=== PATIENT | female | born 1940 | race Caucasian/White ===

== ENCOUNTER 2019-09-07 12:29 | Emergency (ER) | payer MEDICARE, OTHER ==
[2019-09-07] MEDS ORDERED: METF500T13 PO ×2 (13:00)
[2019-09-07] MEDS ORDERED: NOVOINJ3 SQ (13:00)
[2019-09-07] MEDS ORDERED: ADV250INH INH (13:00)
[2019-09-07] MEDS ORDERED: GABA-843 PO (13:00)
[2019-09-07] MEDS ORDERED: HYDR-3713 PO (13:00)
[2019-09-07] MEDS ORDERED: SIMV20TA22 PO (13:00)
[2019-09-07] MEDS ORDERED: TRES1INJ SQ (13:00)
[2019-09-07] MEDS ORDERED: RAMI1CAP26 PO (13:00)
[2019-09-07] MEDS ORDERED: SERT50TA29 PO (13:00)
[2019-09-07] MEDS ORDERED: BISO10TA4 PO (13:00)
[2019-09-07] MEDS ORDERED: LEVA45AE INH (13:00)
--- NOTE | 2019-09-07 13:07 | REP ---
INDICATION: Trauma PROCEDURE: CT head without contrast COMPARISON STUDIES: No prior similar studies FINDINGS: No acute bleed or fracture. Ventricles, cisterns and sulci within normal limits. No mass effect or midline shift. No abnormal fluid collections. No fracture. Paranasal sinuses and mastoid air cells are clear. Small osteoma perhaps 3- 4 mm seen off of the outer table of the skull on the left forehead as an incidental finding. CONCLUSION: No acute or post-traumatic findings. Electronically Signed by Haris Leonard MD 09/07/2019 12:59 P
--- NOTE | 2019-09-07 13:09 | REP ---
INDICATION: Trauma. PROCEDURE: CT maxillofacial COMPARISON STUDIES: No prior similar studies FINDINGS: No fracture seen. Nasal bones are intact. There is a small amount of mucosal thickening of right ethmoid sinuses. The remainder of the paranasal sinuses and mastoid air cells are clear. CONCLUSION: No acute findings. Electronically Signed by Haris Leonard MD 09/07/2019 01:01 P
--- NOTE | 2019-09-07 13:12 | REP ---
INDICATION: Trauma PROCEDURE: CT cervical spine with multiplanar re-formations COMPARISON STUDIES: No prior similar studies FINDINGS: No acute fracture or malalignment. There is degenerative thickening behind the odontoid at the craniovertebral junction however does not appear to impinge the cervical cord. There is minor anterolisthesis of C3 over C4 and C4 over C5 appears degenerative. No definite limiting canal or foraminal stenosis. Prevertebral soft tissues appear within normal limits. CONCLUSION: No acute findings. Electronically Signed by Harsi Leonard MD 09/07/2019 01:03 P
--- NOTE | 2019-09-07 14:13 | REP ---
Right shoulder: Three views. History: Pain after a fall. Findings: Three views of the right shoulder demonstrate a slightly impacted nondisplaced fracture of the surgical neck of the right proximal humerus. There is diffuse osteoporosis. Periarticular soft tissue calcification is seen consistent with chronic calcific tendinobursitis. 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 No other fracture is seen. Impression: Slightly impacted nondisplaced fracture surgical neck right proximal humerus. Osteoporosis. Periarticular soft tissue calcification consistent with tendonitis/bursitis. Electronically Signed by Truman Charles MD 09/07/2019 06:17 P
[2019-09-07] MEDS ORDERED: FLUORESCEIN OPHTH 1 MG STRIP As Ordered ONE (14:39)
[2019-09-07] MEDS ORDERED: TETRACAINE 0.5% OPHTH SOLN 4ML OU ONE (14:45)
[2019-09-07] MEDS ORDERED: FLUORESCEIN OPHTH 1 MG STRIP OD ONE (14:45)
[2019-09-07] MEDS ORDERED: ERYT1OIN26 OD (15:02)
[2019-09-07 15:26] VITALS: BP 172/80
== END 2019-09-07 15:50 | disposition home or self-care (01) ==
LOC: EDBD 12:29 → EDSEX 12:29 → M ED 12:29
DX: S42.214A Unspecified nondisplaced fracture of surgical neck of right humerus, initial encounter for closed fracture (principal); H11.31 Conjunctival hemorrhage, right eye; S05.01XA Injury of conjunctiva and corneal abrasion without foreign body, right eye, initial encounter; W01.10XA Fall on same level from slipping, tripping and stumbling with subsequent striking against unspecified object, initial encounter; Y92.099 Unspecified place in other non-institutional residence as the place of occurrence of the external cause; Y93.9 Activity, unspecified; Y99.9 Unspecified external cause status; E11.9 Type 2 diabetes mellitus without complications; J44.9 Chronic obstructive pulmonary disease, unspecified; E78.5 Hyperlipidemia, unspecified; Z79.4 Long term (current) use of insulin; Z79.899 Other long term (current) drug therapy; Z88.5 Allergy status to narcotic agent; Z88.8 Allergy status to other drugs, medicaments and biological substances

== ENCOUNTER 2020-08-06 17:01 | Inpatient (IN) | payer MEDICARE ==
[~2020-08-06 17:01] MED LIST: ADV250INH INH; BISO10TA4 PO; ERYT5OIN25 OD; GABA-843 PO; HYDR-3713 PO; LEVA45AE INH; METF500T13 PO; NOVOINJ3 SQ; RAMI1CAP26 PO; SERT50TA29 PO; SIMV20TA22 PO; TRES1INJ SQ
--- NOTE | 2020-08-06 18:15 | REP ---
INDICATION: DKA. COMPARISON: Comparison chest x-ray February 02, 2013. TECHNIQUE: Portable upright AP chest radiograph. FINDINGS: The lungs are well inflated and free of infiltrate. Pleural angles are sharp. Heart size is normal. Pulmonary vasculature is not increased. No significant bony abnormality is seen. IMPRESSION: No active disease. <Electronically signed by Gama Charles > 08/06/20 [id number]
[2020-08-06 18:42] LABS: ABG BASE EXCESS -3.9 (-2.0-2.0); ABG HCO3 21.1 MEQ/L (22.0-26.0); ABG O2 SATURATION 96.2 % (95.0-99.0); ABG PARTIAL PRESSURE CO2 38.2 mmHg (35.0-45.0); ABG STANDARD HCO3 21.2 MEQ/L (22.0-26.0); ABG TOTAL CO2 22.3 MEQ/L (23.0-31.0); ABG pH (ARTERIAL) 7.361 UNITS (7.350-7.450)
[2020-08-06 18:45] LABS: BASO # 0.1 10^3/uL (0.0-0.2); BASO % 0.5 % (0.0-1.0); EOS % 0.3 % (0.0-3.0); HEMATOCRIT 36.1 % (36.0-47.0); HEMOGLOBIN 11.1 g/dl (12.0-15.5); LYMPH # 2.3 10^3/uL (1.5-5.0); LYMPH % 20.7 % (24.0-44.0); MEAN CORPUSCULAR HGB CONC 30.7 g/dl (32.0-36.5); MEAN CORPUSCULAR VOLUME 90.9 fl (80.0-96.0); MONO # 1.1 10^3/uL (0.0-0.8); MONO % 9.5 % (0.0-5.0); NEUTROPHILS # 7.7 10^3/uL (1.5-8.5); NEUTROPHILS % 68.6 % (36.0-66.0); PLATELET COUNT, AUTOMATED 234 10^3/uL (150-450); RED BLOOD COUNT 3.97 10^6/uL (4.00-5.40); WHITE BLOOD COUNT 11.2 10^3/uL (4.0-10.0)
[2020-08-06 19:21] LABS: ACETONE/KETONE 33.08 MG/DL (<2.81); ALBUMIN 3.4 GM/DL (3.2-5.2); BILIRUBIN,DIRECT 0.1 MG/DL (0.0-0.2); BILIRUBIN,TOTAL 0.5 MG/DL (0.2-1.0); CK-MB VALUE MASS 5.3 NG/ML (<3.6); CREATININE FOR GFR 1.34 MG/DL (0.55-1.30); GLOMERULAR FILTRATION RATE 40.3 (>32); MB/CK RELATIVE INDEX 5.15 (< OR =4); PHOSPHORUS LEVEL 3.2 MG/DL (2.5-4.9); TOTAL PROTEIN 8.5 GM/DL (6.4-8.2); TROPONIN I 0.07 NG/ML (< 0.10)
[2020-08-06] MEDS ORDERED: LIDOCAINE 2% 5ML JELLY UROJET TOP ONE (19:45)
[2020-08-06] MEDS ORDERED: NS 1,000 ML IV ONE (19:45)
[2020-08-06 19:58] LABS: HEMOGLOBIN A1c 11.2 %
--- NOTE | 2020-08-06 20:08 | REPVR ---
PROCEDURE INFORMATION: Exam: CT Head Without Contrast Exam date and time: 08/06/2020 7:24 PM Age: 80 years old Clinical indication: Altered mental status/memory loss; Additional info: Altered ms TECHNIQUE: Imaging protocol: Computed tomography of the head without contrast. Radiation optimization: All CT scans at this facility use at least one of these dose optimization techniques: automated exposure control; mA and/or kV adjustment per patient size (includes targeted exams where dose is matched to clinical indication); or iterative reconstruction. COMPARISON: CT Head without contrast 09/07/2019 12:43 PM FINDINGS: Brain: No acute intracranial hemorrhage is visualized. The white-gleason differentiation is preserved demonstrating no acute territorial type infarct. There are periventricular foci of white matter hypodensity, likely representing small vessel ischemic disease in a patient this age. The acuity of the white matter disease is indeterminate. There is no midline shift. Artifact limits evaluation of the roselyn. Cerebral ventricles: There is stable prominence of the ventricles and sulci, compatible with atrophy. Bones/joints: The calvarium demonstrates no evidence for a depressed fracture. A nonspecific subcentimeter hypodense lesion is seen within the superior right parietal skull. There is a small hyperdense osteoma again visualized of the left frontal skull at the outer table measuring 7 mm in diameter. Paranasal sinuses: There is opacification of a left posterior ethmoid air cell. Mastoid air cells: Minimal effusions within right mastoid air cells. Orbital cavity: Bilateral orbital lens implants. Vasculature: Intracranial atherosclerosis visualized. Soft tissues: Unremarkable. IMPRESSION: 1. No acute intracranial hemorrhage or acute territorial type infarct. 2. There are periventricular foci of white matter hypodensity, likely representing small vessel ischemic disease in a patient this age. 3. Stable atrophy. 4. Additional findings described above. 5. If further evaluation is clinically indicated, an MRI of the brain is recommended. Electronically signed by: Martin Low On 08/06/2020 20:08:28 PM
[2020-08-06] MEDS ORDERED: HumuLIN R (REGULAR) INSULIN (NovoLIN R) **100U/ML** PER UNIT IV ONE (20:15)
[2020-08-06] MEDS ORDERED: INSUH10VL SC (20:40)
[2020-08-06] MEDS ORDERED: LEVA45AE INH (21:40)
[2020-08-06] MEDS ORDERED: [UNRECOGNIZED DRUG - REMARK] (21:51)
[2020-08-06] MEDS ORDERED: PATIENT COMMENT (21:52)
[2020-08-07] MEDS ORDERED: LEVALBUTEROL HFA 45MCG/ACT 15 GM INHALER INH PRN (00:30)
[2020-08-07] MEDS ORDERED: MAALOX 30 ML SUSP *UDC PO PRN (00:30)
[2020-08-07] MEDS ORDERED: DEXTROSE 50% 50 ML SYRINGE IV PRN (00:30)
[2020-08-07] MEDS ORDERED: GLUCAGON INJ 1MG VIAL SC PRN (00:30)
[2020-08-07] MEDS ORDERED: GLUCOSE 4GM CHEW TABLET PO PRN (00:30)
[2020-08-07] MEDS ORDERED: MOM 30ML SUSPENSION UDC PO PRN (00:30)
[2020-08-07] MEDS ORDERED: ACETAMINOPHEN TAB 650MG DOSE (2X325MG) PO PRN (00:30)
[2020-08-07] MEDS: NS 1,000 ML IV SCH ×2 (03:15→13:30)
--- NOTE | 2020-08-07 05:55 | ECGEPIP ---
[facility] - ED Test Date: 2020-08-06 Pat Name: JAJA WEBB Department: Room: - Gender: Female Trouble Dispatcher: : [id number] Requested By: Greg Guerra Order Number: [id number] Reading MD: Greg Mcpherson Measurements Intervals [place] Rate: 96 P: 66 CT: 191 QRS: -3 QRSD: 90 T: 22 QT: 350 QTc: 443 Interpretive Statements SINUS RHYTHM LOW QRS VOLTAGE IN PRECORDIAL LEADS POOR R WAVE PROGRESSION POSSIBLE INCOMPLETE RIGHT BUNDLE BRANCH BLOCK MINIMAL ST DEPRESSION NO PRIORS FOR COMPARISON Electronically Signed on 08-07-2020 5:55:05 EST by Greg Mcpherson
--- NOTE | 2020-08-07 06:07 | HPEPDOC ---
[facility] Medical History & Physical Date of Admission Aug 06, 2020 Date of Service: Aug 06, 2020 Primary Care Physician: Jr Bills Collins Attending Physician: Blaine Calix MD History and Physical CHIEF COMPLAINT: Altered mental status HISTORY OF PRESENT ILLNESS: Meka is an 80yo female w/ PMHx of poorly controlled IDDM 2, hypertension, and hld, who presented to the [facility] ED on 08/06/2020 via EMS with the chief complaint of altered mental status. Patient has a frame sample and pattern supervisor and caregiver named Layne who visited her earlier in the day and 08/06 and reportedly found. Patient confused and disoriented with her home disheveled. Patient's caregiver was concerned and subsequently called EMS. Upon speaking with the patient and the ED, she also reports feeling as though something was "off". Today when being visited by the skin diving teacher, but she is unable to articulate specifically what was "off." In the ED, patient was found to have significant hyperglycemia (serum glucose 465) with elevated beta hydroxybutyrate but no metabolic pathology nor abnormal anion gap. She is also found to have acute kidney injury in the setting of chronic kidney disease, and likely UTI on UA in the form of 1+ leuk esterase and 1+ urine bacteria. ABG a pH of 7.36 with PCO2 of 30.2, and bicarbonate of 22. A head CT showed no active pathology with some chronic atrophy and small vessel changes and chest x-ray was unremarkable for any active pathology as well. She had a mild leukocytosis (WBC 11.2), and normocytic normochromic mild anemia (Hgb 11.1). ED service administered one-time dose of 6 units IV regular insulin and a 1 L fluid bolus. Patient was subsequently admitted under the care of the hospitalist service, predominantly to workup her altered mental status in the setting of MARY and UTI. PAST MEDICAL HISTORY: Poorly controlled IDDM 2 Hypertension Hyperlipidemia Sciatica on gabapentin PAST SURGICAL HISTORY: Tubal ligation. Dilation and curettage 5 Pilonidal cyst 9 SOCIAL HISTORY: (patient's 3 years ago per patient). 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 She lives alone and has a skin diving teacher named Layne. She is a former smoker having quit approximately 11 years ago. She reports averaging one drink of alcohol per year. She denies any current or former illicit drug use. Is important to note that patient appeared altered somewhat during our exam, so please take these responses with context. FAMILY HISTORY: Mother had unspecified cancer, patient had 2 older sisters, one of whom had type 2 diabetes. Both of her older sisters are . Again, as with rest of history and review, due to patient's altered mental status on presentation, please take all subjective patient responses in context. ALLERGIES: Please see below. REVIEW OF SYSTEMS: *Patient was altered during the exam and other than feeling "off" when she was visited by her skin diving teacher earlier on 08/06 and reporting increased thirst, she either denied all review of systems questions and/or was unable to accurately answer them. HOME MEDICATIONS: Please see below. PHYSICAL EXAMINATION: VITAL SIGNS: Temperature 97.9, pulse 105, respiratory rate, 16, blood pressure, 148/102, pulse oximetry 99 % on room air. GENERAL APPEARANCE: Elderly female lying in bed. No acute distress. She is awake and alert and oriented to self only. She struggles to consistently answer questions and follow commands appropriately. She clearly appeared altered throughout our exam. HEENT: Normocephalic, atraumatic. Mild conjunctival pallor. Anicteric sclera. Reports wearing eyeglasses which she was not wearing during exam but were at bedside. Poor dentition CARDIOVASCULAR: Borderline tachycardic rate, regular rhythm. Normal S1, S2. No murmurs appreciated. LUNGS: Somewhat diminished tidal volume with no adventitious breath sounds appreciated. Posterior auscultation was somewhat limited as patient was only able to roll on her side and not sit up. Symmetric chest expansion. Breathing room air. Speaking full senses. ABDOMEN: Soft with some mild diffuse distention. Nontender. No guarding or r igidity appreciated. Normoactive bowel sounds present. MUSCULOSKELETAL: 5/5 UE muscle strength b/l; 4/5 b/l LE muscle strength EXTREMITIES: Mild swelling bilateral lower extremities with no pitting edema. No cyanosis or clubbing. 2+ radial and posterior tibial pulses bilaterally. NEUROLOGICAL: Awake, alert and oriented to self only. He struggled to answer questions appropriately and follow commands on a consistent basis throughout the exam. Clearly appeared to be altered during exam. PSYCHIATRIC: Became frustrated and somewhat sad at times due to her inability to consistently answer questions and follow commands. Affect appeared appropriate. LABORATORY DATA: Please see below. IMAGING: Portable CXR, 08/06/2020- FINDINGS: The lungs are well inflated and free of infiltrate. Pleural angles are sharp. Heart size is normal. Pulmonary vasculature is not increased. No significant bony abnormality is seen. IMPRESSION: No active disease. Head CT w/o contrast, 08/06/2020- FINDINGS: Brain: No acute intracranial hemorrhage is visualized. The white-gleason differentiation is preserved demonstrating no acute territorial type infarct. There are periventricular foci of white matter hypodensity, likely representing small vessel ischemic disease in a patient this age. The acuity of the white matter disease is indeterminate. There is no midline shift. Artifact limits evaluation of the roselyn. Cerebral ventricles: There is stable prominence of the ventricles and sulci, compatible with atrophy. Bones/joints: The calvarium demonstrates no evidence for a depressed fracture. A nonspecific subcentimeter hypodense lesion is seen within the superior right parietal skull. There is a small hyperdense osteoma again visualized of the left frontal skull at the outer table measuring 7 mm in diameter. Paranasal sinuses: There is opacification of a left posterior ethmoid air cell. Mastoid air cells: Minimal effusions within right mastoid air cells. Orbital cavity: Bilateral orbital lens implants. Vasculature: Intracranial atherosclerosis visualized. Soft tissues: Unremarkable. IMPRESSION: 1. No acute intracranial hemorrhage or acute territorial type infarct. 2. There are periventricular foci of white matter hypodensity, likely representing small vessel ischemic disease in a patient this age. 3. Stable atrophy. 4. Additional findings described above. 5. If further evaluation is clinically indicated, an MRI of the brain is recommended. MICROBIOLOGY: Please see below. ASSESSMENT & PLAN: 80yo female w/ pertinent h/o poorly controlled IDDM II, htn, and hld, who was admitted on 08/06 w/ altered mental status in the setting of hyperglycemia, mary on ckd, and UTI. #Altered mental status 2/2 dementia versus delirium -Main issue at this point is trying to identify whether or not patient has ba seline dementia or for altered mental status is because of delirium secondary to medications, UTI, hyperglycemia, poor renal function. Working on improving hyperglycemia as discussed below and will treat the UTI. If urine culture comes back positive as she is currently asymptomatic. -PFS consult was placed as patient likely will need some home care should she return home upon discharge, and to get the ball rolling for future placement. Because of what seems to be an inability right now to care for self and the fact that she lives alone, is important that her discharge addresses these issues #Hyperglycemia 2/2 poorly controlled IDDM II -Her home long-acting insulin dose was cut in half and will be given daily. She was also placed on sliding scale insulin with hypoglycemic protocol. Currently receiving IV fluids with 100 mL per hour rate. 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 I -Urine sodium and urine creatinine ordered to calculate fractional excretion of sodium #Asymptomatic UTI -1+ positive leuk esterase, 1+ urine bacteria. Patient is asymptomatic, but due to mental status and potentially could be symptomatic if she was intact. Should urine culture come back positive, would suggest treating in that setting. #H/o htn -hydrochlorothiazide portion of the bisoprolol-bisoprolol 10 mg was ordered. Her home KUSHAL inhibitor will be held in the setting of AK. I. HCTZ medication is held in the setting of her MARY. #H/o hld -Home simvastatin continued #Asthma -Home ICF/laba medication continued #h/o mood disorder -Home sertraline. Continued #DVT prophylaxis: Lovenox Disposition: admitted with likely 2 midnight stay at minimum Vital Signs Vital Signs Date Time Temp Pulse Resp B/P (MAP) Pulse Ox O2 Delivery O2 Flow Rate FiO2 08/07/20 03:45 97 18 98 Room Air 08/07/20 03:00 129/60 (83) 08/06/20 17:20 97.9 Laboratory Data Labs 24H Laboratory Tests 2 08/06/20 18:18: Immature Granulocyte % (Auto) 0.4, Neutrophils (%) (Auto) 68.6H, Lymphocytes (%) (Auto) 20.7L, Monocytes (%) (Auto) 9.5H, Eosinophils (%) (Auto) 0.3, Basophils (%) (Auto) 0.5, Neutrophils # (Auto) 7.7, Lymphocytes # (Auto) 2.3, Monocytes # (Auto) 1.1H, Eosinophils # (Auto) 0.0, Basophils # (Auto) 0.1, Nucleated Red Blood Cells % (auto) 0.0, Anion Gap 10, Glomerular Filtration Rate 40.3, Estimated Mean Plasma Glucose 275H, Hemoglobin A1c 11.2, Osmolality 311H, Calcium Level 9.0, Phosphorus Level 3.2, Magnesium Level 2.0, Total Bilirubin 0.5, Direct Bilirubin 0.1, Aspartate Amino Transf (AST/SGOT) 18, Alanine Aminotransferase (ALT/SGPT) 24, Alkaline Phosphatase 150H, Ammonia 44H, Total Creatine Kinase 103, Creatine Kinase MB 5.3H, Creatine Kinase MB Relative Index 5.15H, Troponin I 0.07, Total Protein 8.5H, Albumin 3.4, Albumin/Globulin Ratio 0.7L, Lipase 38L, B-Hydroxybutyrate 33.08H 08/06/20 18:27: Blood Gas Bicarbonate Standard 21.2L, Arterial Blood pH 7.361, Arterial Blood Partial Pressure CO2 38.2, Arterial Blood Partial Pressure O2 89.0, Arterial Blood Total CO2 22.3L, Arterial Blood HCO3 21.1L, Arterial Blood Base Excess - 3.9L, Arterial Blood Oxygen Saturation 96.2 08/06/20 20:05: Urine Color YELLOW, Urine Appearance HAZY, Urine pH 5.0, Urine Specific [place] 1.023, Urine Protein NEGATIVE, Urine Glucose (UA) 3+H, Urine Ketones 1+H, Urine Blood 2+H, Urine Nitrite NEGATIVE, Urine Bilirubin NEGATIVE, Urine Urobilinogen 0.2, Urine Leukocyte Esterase 1+H, Urine WBC (Auto) 42H, Urine RBC (Auto) 6H, Urine Hyaline Casts (Auto) 0, Urine Bacteria (Auto) 1+H, Urine Squamous Epithelial Cells 2, Urine Sperm (Auto) 08/06/20 23:13: Bedside Glucose (Misc Panel) 219H 08/07/20 00:57: Bedside Glucose (Misc Panel) 237H 08/07/20 00:59: Coronavirus (COVID-19)(PCR) NEGATIVE CBC/BMP Laboratory Tests 08/06/20 18:18 Microbiology Microbiology 08/06/20 Urine Culture, Received Pending Home Medications Scheduled Bisoprolol/Hydrochlorothiazide (Bisoprolol-Hctz 10-6.25 mg Tab) 1 Each Tablet, 1 TAB PO DAILY Gabapentin (Gabapentin) 300 Mg Capsule, 600 MG PO QHS Insulin Aspart (Novolog Flexpen) 100 Unit/1 Ml Insuln.pen, 16 UNITS SQ BID BREAKFAST AND DINNER Insulin Degludec (Tresiba Flextouch U-200) 200 Unit/1 Ml Insuln.pen, 96 UNITS SQ DAILY Insulin Human Lispro (Novolog) 100 Unit/1 Ml Vial, 18 UNITS SC DAILY LUNCH Metformin HCl (Metformin HCl) 500 Mg Tablet, 500 MG PO DAILY Metformin HCl (Metformin HCl) 500 Mg Tablet, 1,000 MG PO QPM WITH DINNER Ramipril (Ramipril) 10 Mg Capsule, 10 MG PO QHS Salmeterol/Fluticasone (Advair 250-50 Diskus) 1 Each Blst.w.dev, 1 PUFF INH BID Sertraline HCl (Sertraline HCl) 50 Mg Tablet, 50 MG PO DAILY Simvastatin (Simvastatin) 20 Mg Tablet, 20 MG PO QHS Scheduled PRN Hydrocodone/Acetaminophen (Hydrocodone-Acetamin 5-325 mg) 1 Each Tablet, 1 TAB PO Q6H PRN for PAIN Levalbuterol Tartrate (Levalbuterol Tartrate Hfa) 15 Gm Hfa.aer.ad, 2 PUFFS INH QID PRN for SHORTNESS OF BREATH Miscellaneous Medications [Patient Comment] MED REC COMPLETED VIA EXTERNAL MED HISTORY Allergies Coded Allergies: aspirin (Verified Allergy, Unknown, 09/07/19) codeine (Verified Adverse Reaction, Mild, VOMITING, 08/06/20) A-FIB/CHADSVASC A-FIB History Current/History of A-Fib/PAF?: No Current PO Anticoag Therapy: JAYE Brown D.O. Aug 07, 2020 06:07
[2020-08-07 06:35] VITALS: BP 171/86
[2020-08-07] MEDS: ADVAIR HFA 115/21MCG INHALER INH SCH ×2 (08:00→17:54)
[2020-08-07] MEDS ORDERED: bisoproloL fumarate 5 MG TAB PO ONE (09:00)
[2020-08-07] MEDS ORDERED: LEVEMIR (INSULIN DETEMIR) 1 UNITS/0.01ML SC SCH (09:00)
[2020-08-07] MEDS ORDERED: cefTRIAXone SOD 1 GM in D5W MINI-BAG PLUS 50 ML IV SCH (09:00)
[2020-08-07 09:47] VITALS: BP 171/86
[2020-08-07] MEDS: ENOXAPARIN 30MG/0.3ML SYRINGE (J1650 PER 10MG) SC SCH (09:47)
[2020-08-07] MEDS: SERTRALINE HCL 50 MG TAB PO SCH (09:48)
[2020-08-07 09:49] LABS: HEMATOCRIT 33.4 % (36.0-47.0); HEMOGLOBIN 10.1 g/dl (12.0-15.5); MEAN CORPUSCULAR HEMOGLOBIN 27.7 pg (27.0-33.0); MEAN CORPUSCULAR HGB CONC 30.2 g/dl (32.0-36.5); MEAN CORPUSCULAR VOLUME 91.8 fl (80.0-96.0); PLATELET COUNT, AUTOMATED 249 10^3/uL (150-450); RED BLOOD COUNT 3.64 10^6/uL (4.00-5.40)
[2020-08-07] MEDS: HumaLOG INSULIN (NovoLOG) PER UNIT SC SCH ×4 (09:52→21:00)
[2020-08-07 10:05] LABS: ALBUMIN 2.9 GM/DL (3.2-5.2); ALT/SGPT 22 U/L (12-78); BILIRUBIN,TOTAL 0.5 MG/DL (0.2-1.0); BLOOD UREA NITROGEN 16 MG/DL (7-18); CALCIUM LEVEL 8.6 MG/DL (8.8-10.2); CARBON DIOXIDE LEVEL 20 MEQ/L (21-32); CHLORIDE LEVEL 106 MEQ/L (98-107); CREATININE FOR GFR 0.87 MG/DL (0.55-1.30); GLOMERULAR FILTRATION RATE > 60.0 (>32); GLUCOSE, FASTING 319 MG/DL (70-100); SODIUM LEVEL 135 MEQ/L (136-145); TOTAL PROTEIN 7.7 GM/DL (6.4-8.2)
[2020-08-07 14:00] VITALS: BP 132/68
--- NOTE | 2020-08-07 19:09 | IPNPDOC ---
Date Seen The patient was seen on 08/07/20. Progress Note SUBJECTIVE: B-hydroxybut. elevated at 38 this AM, BS remained 200-300 at times during day. Modified levemir to BID according to home dosed med. Ammonia wnl this AM on. OBJECTIVE: PHYSICAL EXAMINATION: VITAL SIGNS: Please see below GENERAL APPEARANCE: Pleasantly confused, NAD. She is awake and alert and oriented to self only- unknown baseline HEENT: Normocephalic, atraumatic. Mild conjunctival pallor. Anicteric sclera. CARDIOVASCULAR: regular rate and rhythm. Normal S1, S2. No murmurs appreciated. LUNGS: CTAB, no W/R/R ABDOMEN: Soft with some mild distention. Nontender. No guarding or rigidity appreciated. Normoactive bowel sounds present. MUSCULOSKELETAL: 5/5 UE muscle strength b/l; 4/5 b/l LE muscle strength EXTREMITIES: Mild swelling bilateral lower extremities with no pitting edema. No cyanosis or clubbing. 2+ radial and posterior tibial pulses bilaterally. NEUROLOGICAL: Awake, alert and oriented to self only. Follows commands without issues. No focal deficits PSYCHIATRIC: Mood and affect appropriate, pleasantly confused LABORATORY DATA: Please see below. IMAGING: Portable CXR, 08/06/2020: No active disease. Head CT w/o contrast, 08/06/2020: 1. No acute intracranial hemorrhage or acute territorial type infarct. 2. There are periventricular foci of white matter hypodensity, likely representing small vessel ischemic disease in a patient this age. 3. Stable atrophy. 4. Additional findings described above. 5. If further evaluation is clinically indicated, an MRI of the brain is recommended. MICROBIOLOGY: Please see below. ASSESSMENT & PLAN: 80yo female w/ pertinent h/o poorly controlled IDDM II, htn, and hld, who was admitted on 08/06 w/ altered mental status in the setting of hyperglycemia, mary on ckd, and UTI. Altered mental status 2/2 dementia vs. metabolic encephalopathy 2/2 to UTI vs. 2/2 to hyperammonemia -Slightly improved from admission, following all commands this AM for me, pleasant -Baseline mentation not known, will need to look further into this -BS improved some -Started on IV ceftriaxone for UTI with UCx pending -PFS consult was placed -Monitor closely, c/w treatment for individual issues below Hyperammonemia, unknown etiology- resolved -No documented liver issues -AST/ALT only very minimally elevated this AM -F/u CMP daily, avoid hepatotoxic med Hyperglycemia 2/2 poorly controlled IDDM II -Adjusted levemir to BID dosing according to home antihyperglycemics -BS slightly improved but to get night levemir tonight -Not in DKA but has elevated serum acetone/beta hydroxybuty. -C/w consistent carb diet, ISS, FS AC/HS , IVFS. -Home metformin held MARY on CKD Stage IIIB- resolved -Cr now wnl. -C/w IVFs overnight. -Continue to hold KUSHAL inhibitor and hydrochlorothiazide - consider restarting in the AM #UTI -1+ positive leuk esterase, 1+ urine bacteria. -Patient is asymptomatic, but due to mental status and potentially could be symptomatic if she was intact. -Started ceftriaxone IV today -F/u Ucx , BCx #HTN -BP not well controlled since being on IVFs -Holding HCTZ, ACEi -resume home HCTZ if needed overnight #HLD - simvastatin continued #Asthma -STable -Home ICF/laba medication continued #Mood disorder -Home sertraline. Continued #DVT prophylaxis: Lovenox DISPOSITION: C/w treatment above. Plan undetermined for discharge, PFS consulted. VS, I&O, 24H, Fishbone Vital Signs/I&O Vital Signs Date Time Temp Pulse Resp B/P (MAP) Pulse Ox O2 Delivery O2 Flow Rate FiO2 08/07/20 14:00 98.2 71 18 132/68 (89) 98 Room Air I&O- Last 24 Hours up to 6 AM 08/07/20 06:00 Output Total 200 ml Balance -200 ml Laboratory Data 24H LABS Laboratory Tests 2 08/06/20 20:05: Urine Color YELLOW, Urine Appearance HAZY, Urine pH 5.0, Urine Specific [place] 1.023, Urine Protein NEGATIVE, Urine Glucose (UA) 3+H, Urine Ketones 1+H, Urine Blood 2+H, Urine Nitrite NEGATIVE, Urine Bilirubin NEGATIVE, Urine Urobilinogen 0.2, Urine Leukocyte Esterase 1+H, Urine WBC (Auto) 42H, Urine RBC (Auto) 6H, Urine Hyaline Casts (Auto) 0, Urine Bacteria (Auto) 1+H, Urine Squamous Ep ithelial Cells 2, Urine Sperm (Auto) 08/06/20 23:13: Bedside Glucose (Misc Panel) 219H 08/07/20 00:57: Bedside Glucose (Misc Panel) 237H 08/07/20 00:59: Coronavirus (COVID-19)(PCR) NEGATIVE 08/07/20 07:56: Bedside Glucose (Misc Panel) 295H 08/07/20 08:48: Nucleated Red Blood Cells % (auto) 0.0, Anion Gap 9, Glomerular Filtration Rate > 60.0, Calcium Level 8.6L, Total Bilirubin 0.5, Aspartate Amino Transf (AST/SGOT) 39H, Alanine Aminotransferase (ALT/SGPT) 22, Alkaline Phosphatase 127H, Total Protein 7.7, Albumin 2.9L, Albumin/Globulin Ratio 0.6L 08/07/20 08:50: Ammonia 16 08/07/20 08:55: B-Hydroxybutyrate 38.47H 08/07/20 11:39: Bedside Glucose (Misc Panel) 312H 08/07/20 16:50: Bedside Glucose (Misc Panel) 135H CBC/BMP Laboratory Tests 08/07/20 08:48 Microbiology Microbiology 08/07/20 Blood Culture, Received Pending 08/07/20 Blood Culture, Received Pending 08/06/20 Urine Culture - Final, Complete Current Medications Current Medications Medications (Trade) Dose Ordered Sig/Carson Route PRN Reason Start Time Stop Time Status Last Admin Dose Admin Acetaminophen (Tylenol Tab) 650 mg Q4H PRN PO PAIN OR FEVER 08/07/20 00:30 Al Hydrox/Mg Hydrox/Simethicone (Mylanta) 30 ml DAILY PRN PO DYSPEPSIA 08/07/20 00:30 Ceftriaxone Sodium 1 gm/ Dextrose 50 ml @ 100 mls/hr Q24H IV 08/07/20 09:00 08/07/20 09:46 Dextrose (Dextrose 50%) 25 ml ASDIRECTED PRN IV SEE LABEL COMMENTS 08/07/20 00:30 Enoxaparin Sodium (Lovenox) 30 mg DAILY SC 08/07/20 09:00 08/07/20 09:47 Gabapentin (Neurontin) 300 mg QHS PO 08/07/20 21:00 Glucagon (Glucagon) 1 mg ASDIRECTED PRN SC SEE LABEL COMMENTS 08/07/20 00:30 Glucose (Glucose) 16 GM ASDIRECTED PRN PO SEE LABEL COMMENTS 08/07/20 00:30 Home Med (Med Rec Complete!) ASDIRECTED XX 08/06/20 22:00 08/06/20 21:54 DC Insulin Detemir (Levemir Insulin) 38 units BID SC 08/08/20 09:00 Insulin Detemir (Levemir Insulin) 48 units DAILY SC 08/07/20 09:00 08/07/20 09:47 Insulin Human Lispro (HumaLOG INSULIN) SEE PROTOCOL TABLE AC SC 08/07/20 07:30 08/07/20 17:31 Insulin Human Lispro (HumaLOG INSULIN) SEE PROTOCOL TABLE QHS SC 08/07/20 21:00 Levalbuterol HCl (Xopenex Hfa) 2 puff QID PRN INH SHORTNESS OF BREATH 08/07/20 00:30 Magnesium Hydroxide (Milk Of Magnesia) 30 ml DAILY PRN PO CONSTIPATION 08/07/20 00:30 Ramipril (Altace) 10 mg QHS PO 08/07/20 21:00 08/07/20 03:20 DC Salmeterol Xinafoate/ Fluticasone (Advair Hfa 115/ 21) 2 puff RBID INH 08/07/20 08:00 08/07/20 17:54 Sertraline HCl (Zoloft) 50 mg DAILY PO 08/07/20 09:00 08/07/20 09:48 Simvastatin (Zocor) 20 mg QHS PO 08/07/20 21:00 Sodium Chloride 1,000 ml @ 100 mls/hr Q10H IV 08/07/20 03:15 08/07/20 13:30 Allergies Coded Allergies: aspirin (Verified Allergy, Unknown, 09/07/19) codeine (Verified Adverse Reaction, Mild, VOMITING, 08/06/20) Suzie Umanzor MD Aug 07, 2020 19:09
[2020-08-07] MEDS ORDERED: ramipriL 5 MG CAP PO SCH (21:00)
[2020-08-07] MEDS ORDERED: LEVEMIR (INSULIN DETEMIR) 1 UNITS/0.01ML SC ONE (21:00)
[2020-08-07 22:00] VITALS: BP 124/71
[2020-08-07] MEDS: SIMVASTATIN 20 MG TAB PO SCH (22:11)
[2020-08-07] MEDS: GABAPENTIN 300 MG CAP PO SCH (22:11)
[2020-08-08] MEDS ORDERED: NYSTATIN 100,000 UNITS/GM TOPICAL PWD 15 GM TOP PRN (01:00)
[2020-08-08 06:00] VITALS: BP 129/73
[2020-08-08] MEDS: ADVAIR HFA 115/21MCG INHALER INH SCH ×2 (06:06→17:39)
[2020-08-08 06:22] LABS: HEMATOCRIT 31.5 % (36.0-47.0); HEMOGLOBIN 9.6 g/dl (12.0-15.5); MEAN CORPUSCULAR HGB CONC 30.5 g/dl (32.0-36.5); MEAN CORPUSCULAR VOLUME 91.8 fl (80.0-96.0); PLATELET COUNT, AUTOMATED 243 10^3/uL (150-450); RED BLOOD COUNT 3.43 10^6/uL (4.00-5.40); WHITE BLOOD COUNT 10.5 10^3/uL (4.0-10.0)
[2020-08-08 07:00] LABS: ALBUMIN 2.7 GM/DL (3.2-5.2); ALT/SGPT 20 U/L (12-78); BILIRUBIN,TOTAL 0.3 MG/DL (0.2-1.0); BLOOD UREA NITROGEN 14 MG/DL (7-18); CALCIUM LEVEL 8.4 MG/DL (8.8-10.2); CARBON DIOXIDE LEVEL 26 MEQ/L (21-32); CHLORIDE LEVEL 108 MEQ/L (98-107); CREATININE FOR GFR 0.73 MG/DL (0.55-1.30); GLOMERULAR FILTRATION RATE > 60.0 (>32); GLUCOSE, FASTING 120 MG/DL (70-100); POTASSIUM SERUM 3.2 MEQ/L (3.5-5.1); SODIUM LEVEL 139 MEQ/L (136-145)
[2020-08-08] MEDS: HumaLOG INSULIN (NovoLOG) PER UNIT SC SCH ×4 (07:30→21:44)
[2020-08-08] MEDS ORDERED: POTASSIUM CHLORIDE 10 MEQ SR TABLET PO ONE (08:30)
[2020-08-08] MEDS: SERTRALINE HCL 50 MG TAB PO SCH (10:15)
[2020-08-08] MEDS: ENOXAPARIN 30MG/0.3ML SYRINGE (J1650 PER 10MG) SC SCH (10:16)
[2020-08-08] MEDS: LEVEMIR (INSULIN DETEMIR) 1 UNITS/0.01ML SC SCH ×2 (10:16→21:43)
[2020-08-08 16:00] VITALS: BP 128/71
--- NOTE | 2020-08-08 18:46 | IPNPDOC ---
Date Seen The patient was seen on 08/08/20. Progress Note SUBJECTIVE: B-hydroxybut. much decreased, BS better controlled. No acute events overnight. UCx NG so stopped IV ceftriaxone OBJECTIVE: PHYSICAL EXAMINATION: VITAL SIGNS: Please see below GENERAL APPEARANCE: Pleasantly confused, NAD. She is awake and alert and oriented to time, place and self- appears close to baseline HEENT: Normocephalic, atraumatic. Mild conjunctival pallor. Anicteric sclera. CARDIOVASCULAR: regular rate and rhythm. Normal S1, S2. No murmurs appreciated. LUNGS: CTAB, no W/R/R ABDOMEN: Soft . Nontender. No guarding or rigidity appreciated. Normoactive bowel sounds present. MUSCULOSKELETAL: 5/5 UE muscle strength b/l; 4/5 b/l LE muscle strength EXTREMITIES: Mild swelling bilateral lower extremities with no pitting edema. No cyanosis or clubbing. 2+ radial and posterior tibial pulses bilaterally. NEUROLOGICAL: Awake, alert and oriented to self only. Follows commands without issues. No focal deficits PSYCHIATRIC: Mood and affect appropriate, pleasantly confused LABORATORY DATA: Please see below. IMAGING: Portable CXR, 08/06/2020: No active disease. Head CT w/o contrast, 08/06/2020: 1. No acute intracranial hemorrhage or acute territorial type infarct. 2. There are periventricular foci of white matter hypodensity, likely representing small vessel ischemic disease in a patient this age. 3. Stable atrophy. 4. Additional findings described above. 5. If further evaluation is clinically indicated, an MRI of the brain is recommended. MICROBIOLOGY: Please see below. ASSESSMENT & PLAN: 80yo female w/ pertinent h/o poorly controlled IDDM II, htn, and hld, who was admitted on 08/06 w/ altered mental status in the setting of hyperglycemia, mary on ckd, and UTI. Altered mental status 2/2 dementia vs. 2/2 to hyperammonemia - at baseline, hyperammonemia resolved -At baseline cognitively as per family -PFS to look into patient having all needs met for safe discharge. -Monitor closely, c/w treatment for individual issues below Hyperglycemia 2/2 poorly controlled IDDM II -BS better controlled today -Adjusted levemir to BID dosing according to home antihyperglycemics - serum acetone/beta hydroxybuty much improved -C/w consistent carb diet, ISS, FS AC/HS -Home metformin held, resume at discharge. Positive UA -UCx NG -Ceftriaxone stopped today #HTN -Stable -Holding HCTZ, ACEi #HLD - simvastatin continued #Asthma -STable -Home ICF/laba medication continued #Mood disorder -Home sertraline. Continued #DVT prophylaxis: Lovenox Resolved issues: Hyperammonemia, unknown etiology MARY on CKD Stage IIIB DISPOSITION: C/w treatment above. Plan is hopeful for discharge in the AM. VS, I&O, 24H, Fishbone Vital Signs/I&O Vital Signs Date Time Temp Pulse Resp B/P (MAP) Pulse Ox O2 Delivery O2 Flow Rate FiO2 08/08/20 16:00 97.6 60 18 128/71 (90) Room Air 08/08/20 06:00 98 I&O- Last 24 Hours up to 6 AM 08/08/20 06:00 Intake Total 1410 ml Output Total 250 ml Balance 1160 ml Laboratory Data 24H LABS Laboratory Tests 2 08/07/20 21:33: Bedside Glucose (Misc Panel) 155H 08/08/20 05:57: Nucleated Red Blood Cells % (auto) 0.0, Anion Gap 5L, Glomerular Filtration Rate > 60.0, Calcium Level 8.4L, Total Bilirubin 0.3, Aspartate Amino Transf (AST/SGOT) 15, Alanine Aminotransferase (ALT/SGPT) 20, Alkaline Phosphatase 110, Total Protein 7.0, Albumin 2.7L, Albumin/Globulin Ratio 0.6L, B-Hydroxybutyrate 4.70H 08/08/20 12:09: Bedside Glucose (Misc Panel) 217H 08/08/20 17:02: Bedside Glucose (Misc Panel) 268H CBC/BMP Laboratory Tests 08/08/20 05:57 Microbiology Microbiology 08/07/20 Blood Culture - Preliminary, Resulted No growth after 24 hours . All specim... 08/07/20 Blood Culture - Preliminary, Resulted No growth after 24 hours . All specim... 08/06/20 Urine Culture - Final, Complete Current Medications Current Medications Medications (Trade) Dose Ordered Sig/Carson Route PRN Reason Start Time Stop Time Status Last Admin Dose Admin Acetaminophen (Tylenol Tab) 650 mg Q4H PRN PO PAIN OR FEVER 08/07/20 00:30 Al Hydrox/Mg Hydrox/Simethicone (Mylanta) 30 ml DAILY PRN PO DYSPEPSIA 08/07/20 00:30 Ceftriaxone Sodium 1 gm/ Dextrose 50 ml @ 100 mls/hr Q24H IV 08/07/20 09:00 08/08/20 08:18 DC 08/07/20 09:46 Dextrose (Dextrose 50%) 25 ml ASDIRECTED PRN IV SEE LABEL COMMENTS 08/07/20 00:30 Enoxaparin Sodium (Lovenox) 30 mg DAILY SC 08/07/20 09:00 08/08/20 10:16 Gabapentin (Neurontin) 300 mg QHS PO 08/07/20 21:00 08/07/20 22:11 Glucagon (Glucagon) 1 mg ASDIRECTED PRN SC SEE LABEL COMMENTS 08/07/20 00:30 Glucose (Glucose) 16 GM ASDIRECTED PRN PO SEE LABEL COMMENTS 08/07/20 00:30 Home Med (Med Rec Complete!) ASDIRECTED XX 08/06/20 22:00 08/06/20 21:54 DC Insulin Detemir (Levemir Insulin) 38 units BID SC 08/08/20 09:00 08/08/20 10:16 Insulin Detemir (Levemir Insulin) 48 units DAILY SC 08/07/20 09:00 08/08/20 10:10 DC 08/07/20 09:47 Insulin Human Lispro (HumaLOG INSULIN) SEE PROTOCOL TABLE AC SC 08/07/20 07:30 08/08/20 17:50 Insulin Human Lispro (HumaLOG INSULIN) SEE PROTOCOL TABLE QHS SC 08/07/20 21:00 Levalbuterol HCl (Xopenex Hfa) 2 puff QID PRN INH SHORTNESS OF BREATH 08/07/20 00:30 Magnesium Hydroxide (Milk Of Magnesia) 30 ml DAILY PRN PO CONSTIPATION 08/07/20 00:30 Nystatin (Mycostatin Powder, Nystop) Please apply to erythemat... BIDP PRN TOP RASH 08/08/20 01:00 Ramipril (Altace) 10 mg QHS PO 08/07/20 21:00 08/07/20 03:20 DC Salmeterol Xinafoate/ Fluticasone (Advair Hfa 115/ 21) 2 puff RBID INH 08/07/20 08:00 08/08/20 17:39 Sertraline HCl (Zoloft) 50 mg DAILY PO 08/07/20 09:00 08/08/20 10:15 Simvastatin (Zocor) 20 mg QHS PO 08/07/20 21:00 08/07/20 22:11 Sodium Chloride 1,000 ml @ 100 mls/hr Q10H IV 08/07/20 03:15 08/07/20 19:07 DC 08/07/20 13:30 Allergies Coded Allergies: aspirin (Verified Allergy, Unknown, 09/07/19) codeine (Verified Adverse Reaction, Mild, VOMITING, 08/06/20) Suzie Umanzor MD Aug 08, 2020 18:46
[2020-08-08] MEDS: GABAPENTIN 300 MG CAP PO SCH (21:43)
[2020-08-08] MEDS: SIMVASTATIN 20 MG TAB PO SCH (21:43)
[2020-08-08 22:00] VITALS: BP 147/64
[2020-08-09 06:00] VITALS: BP 128/66
[2020-08-09] MEDS: ADVAIR HFA 115/21MCG INHALER INH SCH (06:32)
[2020-08-09 08:41] LABS: HEMOGLOBIN 10.5 g/dl (12.0-15.5); MEAN CORPUSCULAR VOLUME 93.3 fl (80.0-96.0); PLATELET COUNT, AUTOMATED 249 10^3/uL (150-450); RED BLOOD COUNT 3.75 10^6/uL (4.00-5.40); WHITE BLOOD COUNT 11.1 10^3/uL (4.0-10.0)
[2020-08-09 09:01] LABS: ALBUMIN 3.1 GM/DL (3.2-5.2); ALT/SGPT 21 U/L (12-78); BILIRUBIN,TOTAL 0.4 MG/DL (0.2-1.0); BLOOD UREA NITROGEN 13 MG/DL (7-18); CALCIUM LEVEL 8.5 MG/DL (8.8-10.2); CARBON DIOXIDE LEVEL 26 MEQ/L (21-32); CHLORIDE LEVEL 107 MEQ/L (98-107); CREATININE FOR GFR 0.87 MG/DL (0.55-1.30); GLOMERULAR FILTRATION RATE > 60.0 (>32); GLUCOSE, FASTING 260 MG/DL (70-100); POTASSIUM SERUM 4.2 MEQ/L (3.5-5.1); SODIUM LEVEL 140 MEQ/L (136-145); TOTAL PROTEIN 7.3 GM/DL (6.4-8.2)
[2020-08-09] MEDS: HumaLOG INSULIN (NovoLOG) PER UNIT SC SCH ×2 (09:10→13:18)
[2020-08-09] MEDS: SERTRALINE HCL 50 MG TAB PO SCH (09:10)
[2020-08-09] MEDS: LEVEMIR (INSULIN DETEMIR) 1 UNITS/0.01ML SC SCH (09:11)
[2020-08-09] MEDS: ENOXAPARIN 30MG/0.3ML SYRINGE (J1650 PER 10MG) SC SCH (09:11)
--- NOTE | 2020-08-09 19:08 | DS.PDOC ---
Discharge Summary General Date of Admission Aug 06, 2020 at 23:00 Date of Discharge 08/09/20 Attending Physician: Suzie Umanzor MD Discharge Summary HISTORY OF PRESENT ILLNESS: Meka is an 80yo female w/ PMHx of poorly controlled IDDM 2, hypertension, and hld, who presented to the [facility] ED on 08/06/2020 via EMS with the chief complaint of altered mental status. Patient has a credit product analyst and caregiver named Layne who visited her earlier in the day and 08/06 and reportedly found. Patient confused and disoriented with her home disheveled. Patient's caregiver was concerned and subsequently called EMS. Upon speaking with the patient and the ED, she also reports feeling as though something was "off". Today when being visited by the drywall contractor, but she is unable to articulate specifically what was "off." In the ED, patient was found to have significant hyperglycemia (serum glucose 465) with elevated beta hydroxybutyrate but no metabolic pathology nor abnormal anion gap. She is also found to have acute kidney injury in the setting of chronic kidney disease, and likely UTI on UA in the form of 1+ leuk esterase and 1+ urine bacteria. ABG a pH of 7.36 with PCO2 of 30.2, and bicarbonate of 22. A head CT showed no active pathology with some chronic atrophy and small vessel changes and chest x-ray was unremarkable for any active pathology as well. She had a mild leukocytosis (WBC 11.2), and normocytic normochromic mild anemia (Hgb 11.1). ED service administered one-time dose of 6 units IV regular insulin and a 1 L fluid bolus. Patient was subsequently admitted under the care of the hospitalist service, predominantly to workup her altered mental status in the setting of MARY and UTI. HOSPITAL COURSE: Altered mental status was believed to be 2/2 dementia vs. 2/2 to hyperammonemia which resolved within 24 hours. Per family, she is sometimes confused and this is her baseline. Her hyperglycemia 2/2 poorly controlled IDDM II, became better controlled with adjustment of insulins, serum acetone/beta hydroxybuty much improved. She was tolerating a consistent carb diet well and received coverage with ISS. Althought she had a positive UA, UCx NG and Ceftriaxone stopped. By 08/09/20 patient was much improved, BS were stable. She was discharged home with home health service referral. She denied chest pain, n/v/d, fevers, chills, shortness of breath. Other chronic issues were stable. PAST MEDICAL HISTORY: Poorly controlled IDDM 2 Hypertension Hyperlipidemia Sciatica on gabapentin PAST SURGICAL HISTORY: Tubal ligation. Dilation and curettage 5 Pilonidal cyst 9 SOCIAL HISTORY: (patient's 3 years ago per patient). 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 She lives alone and has a drywall contractor named Layne. She is a former smoker having quit approximately 11 years ago. She reports averaging one drink of alcohol per year. She denies any current or former illicit drug use. Is important to note that patient appeared altered somewhat during our exam, so please take these responses with context. FAMILY HISTORY: Mother had unspecified cancer, patient had 2 older sisters, one of whom had type 2 diabetes. Both of her older sisters are . Again, as with rest of history and review, due to patient's altered mental status on presentation, ple ase take all subjective patient responses in context. PHYSICAL EXAMINATION: VITAL SIGNS: Please see below GENERAL APPEARANCE: Pleasant, NAD. She is awake and alert and oriented to time, place and self- appears close to baseline HEENT: Normocephalic, atraumatic. Mild conjunctival pallor. Anicteric sclera. CARDIOVASCULAR: regular rate and rhythm. Normal S1, S2. No murmurs appreciated. LUNGS: CTAB, no W/R/R ABDOMEN: Soft . Nontender. No guarding or rigidity appreciated. Normoactive bowel sounds present. MUSCULOSKELETAL: 5/5 UE muscle strength b/l; 4/5 b/l LE muscle strength EXTREMITIES: Mild swelling bilateral lower extremities with no pitting edema. No cyanosis or clubbing. 2+ radial and posterior tibial pulses bilaterally. NEUROLOGICAL: Awake, alert and oriented to self only. Follows commands without issues. No focal deficits PSYCHIATRIC: Mood and affect appropriate, pleasantly confused LABORATORY DATA: Please see below. IMAGING: Portable CXR, 08/06/2020: No active disease. Head CT w/o contrast, 08/06/2020: 1. No acute intracranial hemorrhage or acute territorial type infarct. 2. There are periventricular foci of white matter hypodensity, likely representing small vessel ischemic disease in a patient this age. 3. Stable atrophy. 4. Additional findings described above. 5. If further evaluation is clinically indicated, an MRI of the brain is recommended. MICROBIOLOGY: Please see below. ASSESSMENT: 80yo female w/ pertinent h/o poorly controlled IDDM II, htn, and hld, who was admitted on 08/06 w/ altered mental status in the setting of hyperglycemia, mary on ckd, and UTI. PLAN: Altered mental status 2/2 dementia vs. 2/2 to hyperammonemia - at baseline, hyperammonemia resolved -At baseline cognitively as per family currently Hyperglycemia 2/2 poorly controlled IDDM II -BS better controlled - serum acetone/beta hydroxybuty much improved -C/w home medications at discharge, consistent carb diet Positive UA -UCx NG -Ceftriaxone stopped #HTN -Stable -C.w home meds #HLD - simvastatin continued #Asthma -STable -Home ICF/laba medication #Mood disorder -Home sertraline. Continued Resolved issues: Hyperammonemia, unknown etiology MARY on CKD Stage IIIB DISPOSITION: Discharged today in improved condition with home health referral and f/u with PCP. TIME SPENT ON DISCHARGE: Greater than 30 minutes. Vital Signs/I&Os Vital Signs Date Time Temp Pulse Resp B/P (MAP) Pulse Ox O2 Delivery O2 Flow Rate FiO2 08/09/20 14:00 98.0 85 16 96 Room Air 08/09/20 06:00 128/66 (86) I&O- Last 24 Hours up to 6 AM 08/09/20 05:59 Intake Total 620 ml Output Total 850 ml Balance -230 ml Laboratory Data Labs 24H Laboratory Tests 2 08/08/20 20:55: Bedside Glucose (Misc Panel) 311H 08/09/20 07:52: Nucleated Red Blood Cells % (auto) 0.0, Anion Gap 7L, Glomerular Filtration Rate > 60.0, Calcium Level 8.5L, Total Bilirubin 0.4, Aspartate Amino Transf (AST/SGOT) 16, Alanine Aminotransferase (ALT/SGPT) 21, Alkaline Phosphatase 124H, Total Protein 7.3, Albumin 3.1L, Albumin/Globulin Ratio 0.7L 08/09/20 11:18: Bedside Glucose (Misc Panel) 294H CBC/BMP Laboratory Tests 08/09/20 07:52 FSBS Laboratory Tests Test 08/08/20 20:55 08/09/20 11:18 Range/Units Bedside Glucose (Misc Panel) 311 294 83-110 MG/DL Microbiology Microbiology 08/07/20 Blood Culture - Preliminary, Resulted No Growth after 48 hours. All Specime... 08/07/20 Blood Culture - Preliminary, Resulted No Growth after 48 hours. All Specime... 08/06/20 Urine Culture - Final, Complete Discharge Medications Scheduled Bisoprolol/Hydrochlorothiazide (Bisoprolol-Hctz 10-6.25 mg Tab) 1 Each Tablet, 1 TAB PO DAILY, (Reported) Gabapentin (Gabapentin) 300 Mg Capsule, 600 MG PO QHS, (Reported) Insulin Aspart (Novolog Flexpen) 100 Unit/1 Ml Insuln.pen, 16 UNITS SQ BID, (Reported) BREAKFAST AND DINNER Insulin Degludec (Tresiba Flextouch U-200) 200 Unit/1 Ml Insuln.pen, 96 UNITS SQ DAILY, (Reported) Insulin Human Lispro (Novolog) 100 Unit/1 Ml Vial, 18 UNITS SC DAILY, (Reported) LUNCH Metformin HCl (Metformin HCl) 500 Mg Tablet, 500 MG PO DAILY, (Reported) Metformin HCl (Metformin HCl) 500 Mg Tablet, 1,000 MG PO QPM, (Reported) WITH DINNER Ramipril (Ramipril) 10 Mg Capsule, 10 MG PO QHS, (Reported) Salmeterol/Fluticasone (Advair 250-50 Diskus) 1 Each Blst.w.dev, 1 PUFF INH BID, (Reported) Sertraline HCl (Sertraline HCl) 50 Mg Tablet, 50 MG PO DAILY, (Reported) Simvastatin (Simvastatin) 20 Mg Tablet, 20 MG PO QHS, (Reported) Scheduled PRN Hydrocodone/Acetaminophen (Hydrocodone-Acetamin 5-325 mg) 1 Each Tablet, 1 TAB PO Q6H PRN for PAIN, (Reported) Levalbuterol Tartrate (Levalbuterol Tartrate Hfa) 15 Gm Hfa.aer.ad, 2 PUFFS INH QID PRN for SHORTNESS OF BREATH, (Reported) Miscellaneous Medications [Patient Comment] , (Reported) MED REC COMPLETED VIA EXTERNAL MED HISTORY Allergies Coded Allergies: aspirin (Verified Allergy, Unknown, 09/07/19) codeine (Verified Adverse Reaction, Mild, VOMITING, 08/06/20) Suzie Umanzor MD Aug 09, 2020 19:08
== END 2020-08-09 15:15 | disposition home or self-care (01) | DRG 642 ==
LOC: M ED 17:01 → EDBD 17:01 → M ED INP 23:00 → ENRESERV 08-07 06:03 → M MS5PR 08-07 06:25
PROVIDERS: ADMIT Family Medicine; ATTEND Internal Medicine
DX: E72.20 Disorder of urea cycle metabolism, unspecified (principal); N17.9 Acute kidney failure, unspecified; E11.65 Type 2 diabetes mellitus with hyperglycemia; N18.32 Chronic kidney disease, stage 3b; I10 Essential (primary) hypertension; J45.909 Unspecified asthma, uncomplicated; E78.5 Hyperlipidemia, unspecified; F39 Unspecified mood [affective] disorder

== ENCOUNTER 2020-08-10 11:08 | Inpatient (IN) | payer MEDICARE ==
[~2020-08-10] VITALS: Ht 152.4 cm; Wt 71.4 kg
[~2020-08-10 11:08] MED LIST changes: +INSUH10VL SC; +PATIENT COMMENT; +[UNRECOGNIZED DRUG - REMARK]
[2020-08-10 12:43] LABS: HEMOGLOBIN 10.3 g/dl (12.0-15.5); MEAN CORPUSCULAR HEMOGLOBIN 27.8 pg (27.0-33.0); MEAN CORPUSCULAR HGB CONC 30.3 g/dl (32.0-36.5); MEAN CORPUSCULAR VOLUME 91.6 fl (80.0-96.0); PLATELET COUNT, AUTOMATED 260 10^3/uL (150-450); RED BLOOD COUNT 3.71 10^6/uL (4.00-5.40)
[2020-08-10 13:06] LABS: ALBUMIN 3.2 GM/DL (3.2-5.2); ALT/SGPT 26 U/L (12-78); BILIRUBIN,TOTAL 0.6 MG/DL (0.2-1.0); BLOOD UREA NITROGEN 20 MG/DL (7-18); CALCIUM LEVEL 9.3 MG/DL (8.8-10.2); CARBON DIOXIDE LEVEL 25 MEQ/L (21-32); CHLORIDE LEVEL 102 MEQ/L (98-107); CREATININE FOR GFR 0.94 MG/DL (0.55-1.30); GLOMERULAR FILTRATION RATE > 60.0 (>32); GLUCOSE, FASTING 345 MG/DL (70-100); SODIUM LEVEL 134 MEQ/L (136-145); TOTAL PROTEIN 7.8 GM/DL (6.4-8.2)
[2020-08-10 13:32] LABS: ACETONE/KETONE 22.73 MG/DL (<2.81)
[2020-08-10 13:46] LABS: VENOUS BASE EXCESS -0.8 (-2.0-2.0); VENOUS HCO3 25.9 MEQ/L (23.0-27.0); VENOUS O2 SATURATION 81.4 % (60.0-80.0); VENOUS PARTIAL PRESSURE CO2 52.5 mmHg (38.0-50.0); VENOUS PH 7.311 UNITS (7.330-7.430); VENOUS STANDARD HCO3 23.5 MEQ/L; VENOUS TOTAL CO2 27.5 MEQ/L (24.0-28.0)
--- NOTE | 2020-08-10 14:04 | REP ---
INDICATION: AMS. COMPARISON: 08/06/2020. TECHNIQUE: Single AP view of the chest performed portably with the patient upright. FINDINGS: Cardiac size appears enlarged. There is diffuse mild interstitial coarsening as an interval change. No definite pleural effusions. The eloisa, mediastinum, and skeletal structures are unremarkable. IMPRESSION: Cardiac size appears enlarged as an interval change. There is mild interstitial coarsening as an interval change. <Electronically signed by Fernando Pickett > 08/10/20 1400
[2020-08-10 14:42] LABS: BLOOD UREA NITROGEN 19 MG/DL (7-18); CALCIUM LEVEL 9.3 MG/DL (8.8-10.2); CARBON DIOXIDE LEVEL 23 MEQ/L (21-32); CHLORIDE LEVEL 102 MEQ/L (98-107); CREATININE FOR GFR 0.93 MG/DL (0.55-1.30); GLOMERULAR FILTRATION RATE > 60.0 (>32); GLUCOSE, FASTING 344 MG/DL (70-100); SODIUM LEVEL 135 MEQ/L (136-145)
--- NOTE | 2020-08-10 15:14 | REP ---
INDICATION: AMS. COMPARISON: August 06, 2020.. TECHNIQUE: Helical scanning is acquired. 5 mm axial images were reformatted. Coronal MPR images were generated. FINDINGS: Bone window settings demonstrate an intact bony calvarium. There is no evidence of skull fracture or incidental bony calvarial lesion. The visualized paranasal sinuses appear clear. No intraorbital abnormality is seen. On soft tissue window setting images; the lateral, third, and fourth ventricles are normal in size and position. Fox-white differentiation pattern is normal above and below the tentorium. There are is no evidence of intracranial hemorrhage. No mass, edema, infarction, or midline shift is seen. No extra-axial fluid collection is appreciated. There is mild generalized volume loss again noted. Vascular calcification is observed. 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 IMPRESSION: No acute intracranial abnormality. Unchanged from August 06, 2020.. <Electronically signed by Gama Charles > 08/10/20 [id number]
[2020-08-10] MEDS ORDERED: NS 1,000 ML IV SCH (15:45)
[2020-08-10] MEDS ORDERED: NS 500 ML IV ONE (15:45)
[2020-08-10 16:13] LABS: HEMOGLOBIN A1c 10.8 %
--- NOTE | 2020-08-10 16:59 | HPEPDOC ---
[facility] Medical History & Physical Date of Admission Aug 10, 2020 Date of Service: Aug 10, 2020 Attending Physician: Suzie Umanzor MD History and Physical HISTORY OF PRESENT ILLNESS: Patient is an 80yo female w/ PMHx of poorly controlled IDDM 2, hypertension, HLD, ? age related memory loss vs. mild dementia, recent hospitalization (08/06- ) for altered mental status secondary to hyperammonemia and uncontrolled diabetes who presented to the [facility] ED after being found down by manager social services at home. EMS was called and fingerstick was found to be 352. The patient couldn't recall person but was limited on place and time. She was able to follow commands. Last thing she remembers was eating breakfast and states that she has been taking her medications at home by herself. Patient reportedly has a caregiver named Layne. She was brought to the ER for further evaluation. In the ED, patient was found to be confused to reason she was at the hospital, which hospital she was at. She could tell me her name, , address but not the complete events of the day. Having just discharged her from my service the day prior, she was much more altered than when she was discharged. VS showed systolic BP 190's mmHg, HR 100, afebrile. She denied chest pain, shortness of breath, n/v/d, fevers, chills, noncompliance with medications or decreased appetite. Abnormal labs included: WBC 14K, H/H 10/34, K 6.0, BS 345, VBG pH 7.311 with pCO2 52.5. She was given fluids and patient's labs were repeat several hours later showing K improved to 5.0. Ammonia pending, which was important to know if elevated because was on last admission. UA, trop neg. ECG sinus tachycardia. CXR: Cardiac size appears enlarged as an interval change, mild interstitial coarsening as an interval change. CT head: No acute intracranial abnormality, unchanged from 08/06/20. On last hospital admission, it was told to us that she is confused at times but this waxes and wanes. I did not have family number or caregiver number to call to question about history. Patient was admitted for further workup of AMS, r/o hyperammonemia vs. hyp ercarbia vs. infectious cause. ROS: neg except mentioned above. PAST MEDICAL HISTORY: Poorly controlled IDDM 2 Hypertension Hyperlipidemia Sciatica on gabapentin PAST SURGICAL HISTORY: Tubal ligation. Dilation and curettage 5 Pilonidal cyst 9 SOCIAL HISTORY: (patient's 3 years ago per patient). 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 She lives alone and has a orthopedic nurse named Layne. She is a former smoker having quit approximately 11 years ago. She reports averaging one drink of alcohol per year. She denies any current or former illicit drug use. She lives in assisted living. FAMILY HISTORY: Mother had unspecified cancer, patient had 2 older sisters, one of whom had type 2 diabetes. Both of her older sisters are . Again, as with rest of history and review, due to patient's altered mental status on presentation, please take all subjective patient responses in context. PHYSICAL EXAMINATION: VITAL SIGNS: Please see below GENERAL APPEARANCE: Pleasantly confused. NAD. She is awake and oriented to self, but not to place or reason she is here. HEENT: Normocephalic, atraumatic. Mild conjunctival pallor. Anicteric sclera. CARDIOVASCULAR: tachycardia. Normal S1, S2. No murmurs appreciated. LUNGS: CTAB, no W/R/R ABDOMEN: Soft . Nontender. No guarding or rigidity appreciated. Normoactive bowel sounds present. MUSCULOSKELETAL: 5/5 UE muscle strength b/l; 4/5 b/l LE muscle strength EXTREMITIES: Mild swelling bilateral lower extremities with no pitting edema. No cyanosis or clubbing. 2+ radial and posterior tibial pulses bilaterally. NEUROLOGICAL: Follows commands without issues. No focal deficits PSYCHIATRIC: Mood and affect appropriate, pleasantly confused LABORATORY DATA: Please see below. IMAGING: CXR, 08/10/2020: Cardiac size appears enlarged as an interval change. There is mild interstitial coarsening as an interval change. Head CT w/o contrast, 08/10/2020: No acute intracranial abnormality. Unchanged from August 06, 2020.. MICROBIOLOGY: UA neg Blood cultures pending ASSESSMENT: 80yo female w/ pertinent h/o poorly controlled IDDM II, htn, and hld, who was admitted w/ altered mental status in the setting of hyperglycemia, hypercarbia. PLAN: Altered mental status 2/2 hyperglycemia, dehydration, hypercarbia. -Recent hospital admission showed hyperammonemia so will check ammonia level -At baseline patient is forgetful at times, no official diagnosis of age related memory loss or dementia -See treatment plans for individual issues below Hyperglycemia 2/2 poorly controlled IDDM II -Likely present due to noncompliance with home medications, unknown if patient has person who helps with medications at home. -BS 340, HbA1c 10.8, dehydrated -serum acetone/beta hydroxybuty+, pH 7.311 but no AG -Started on IVFs, levemir 38 U SC BID, ISS, FS AC/HS, consistent/low sodium diet -Holding PO metformin Hyperkalemia, acute -Not on potassium sparing medications, no MARY, s/s of bleeding -Repeat labs K 6 --> 5 -ECG showed no acute T wave abnormalities -To receive insulin tonight, f/u labs in AM, monitor on tele -C/w IVFs Respiratory acidosis with secondary metabolic alkalosis -Possibly taking too much narcotics? at home, not monitored -? VESNA -No acute airway obstruction or acute changes on CXR -This could make her confused to some extent -Monitor closely Leukocytosis -Afebrile, could be reactive to stress, dehydration -UA neg, CXR no infiltrates -F/u Blood cultures, daily CBC -C/w IVFs for now Chronic anemia -No acute s/s of bleeding -H/H close to baseline -F/u daily CBC HTN -Stable -C.w home meds HLD - simvastatin Asthma -STable -Home ICF/laba medication Mood disorder -Home sertraline. DISPOSITION: Admit to acute inpatient. Will need PT/OT prior to discharge back to assisted living situation. Will also need to be reassessed if patient needs home health or more monitoring living situation. PFS consulted. Vital Signs Vital Signs Date Time Temp Pulse Resp B/P (MAP) Pulse Ox O2 Delivery O2 Flow Rate FiO2 08/10/20 14:23 107 99 08/10/20 14:15 184/85 (118) 08/10/20 12:31 98.2 22 Laboratory Data Labs 24H Laboratory Tests 2 08/10/20 12:21: Nucleated Red Blood Cells % (auto) 0.0, Blood Gas Bicarbonate Standard 23.5, Venous Blood pH 7.311L, Venous Blood Partial Pressure CO2 52.5H, Venous Blood Partial Pressure O2 49.0, Venous Blood Total Carbon Dioxide 27.5, Venous Blood HCO3 25.9, Venous Blood Oxygen Saturation 81.4H, Venous Blood Base Excess -0.8, Anion Gap 7L, Glomerular Filtration Rate > 60.0, Estimated Mean Plasma Glucose 263H, Hemoglobin A1c 10.8, Lactic Acid Level 1.7, Calcium Level 9.3, Total Bilirubin 0.6, Aspartate Amino Transf (AST/SGOT) 42H, Alanine Aminotransferase (ALT/SGPT) 26, Alkaline Phosphatase 127H, Total Protein 7.8, Albumin 3.2, Albumin/Globulin Ratio 0.7L, B-Hydroxybutyrate 22.73H 08/10/20 12:26: Bedside Glucose (Misc Panel) 342H 08/10/20 13:39: Anion Gap 10, Glomerular Filtration Rate > 60.0, Calcium Level 9.3, Urine Color YELLOW, Urine Appearance CLEAR, Urine pH 5.0, Urine Specific [place] 1.016, Urine Protein 1+H, Urine Glucose (UA) 3+H, Urine Ketones 1+H, Urine Blood 1+H, Urine Nitrite NEGATIVE, Urine Bilirubin NEGATIVE, Urine Urobilinogen 0.2, Urine Leukocyte Esterase NEGATIVE, Urine WBC (Auto) 1, Urine RBC (Auto) 6H, Urine Hyaline Casts (Auto) 0, Urine Bacteria (Auto) NEGATIVE, Urine Squamous Epithelial Cells 0, Urine Sperm (Auto) CBC/BMP Laboratory Tests 08/10/20 12:21 08/10/20 13:39 Home Medications Scheduled Bisoprolol/Hydrochlorothiazide (Bisoprolol-Hctz 10-6.25 mg Tab) 1 Each Tablet, 1 TAB PO DAILY Gabapentin (Gabapentin) 300 Mg Capsule, 600 MG PO QHS Insulin Aspart (Novolog Flexpen) 100 Unit/1 Ml Insuln.pen, 16 UNITS SQ BID BREAKFAST AND DINNER Insulin Degludec (Tresiba Flextouch U-200) 200 Unit/1 Ml Insuln.pen, 96 UNITS SQ DAILY Insulin Human Lispro (Novolog) 100 Unit/1 Ml Vial, 18 UNITS SC DAILY LUNCH Metformin HCl (Metformin HCl) 500 Mg Tablet, 500 MG PO DAILY Metformin HCl (Metformin HCl) 500 Mg Tablet, 1,000 MG PO QPM WITH DINNER Ramipril (Ramipril) 10 Mg Capsule, 10 MG PO QHS Salmeterol/Fluticasone (Advair 250-50 Diskus) 1 Each Blst.w.dev, 1 PUFF INH BID Sertraline HCl (Sertraline HCl) 50 Mg Tablet, 50 MG PO DAILY Simvastatin (Simvastatin) 20 Mg Tablet, 20 MG PO QHS Scheduled PRN Hydrocodone/Acetaminophen (Hydrocodone-Acetamin 5-325 mg) 1 Each Tablet, 1 TAB PO Q6H PRN for PAIN Levalbuterol Tartrate (Levalbuterol Tartrate Hfa) 15 Gm Hfa.aer.ad, 2 PUFFS INH QID PRN for SHORTNESS OF BREATH Miscellaneous Medications [Patient Comment] MED REC COMPLETED VIA EXTERNAL MED HISTORY Allergies Coded Allergies: aspirin (Verified Allergy, Unknown, 09/07/19) codeine (Verified Adverse Reaction, Mild, VOMITING, 08/06/20) A-FIB/CHADSVASC A-FIB History Current/History of A-Fib/PAF?: No Current PO Anticoag Therapy: No Age/Risk Factor Scoring CHADSVASC: CHADSVASC Response (Comments) Value Age Risk Factor Age >/= 75 years old 2 Gender Risk Factor Female 1 Hx of CHF No 0 Hx of HTN Yes 1 Hx of Stroke/TIA/or VTE No 0 Hx of Diabetes Yes 1 Hx of Vascular Disease No 0 Total 5 Treatment Treatment ordered: Other Other anticoagulant ordered: enoxaparin Suzie Umanzor MD Aug 10, 2020 16:59
[2020-08-10] MEDS ORDERED: GLUCAGON INJ 1MG VIAL SC PRN (17:15)
[2020-08-10] MEDS ORDERED: GLUCOSE 4GM CHEW TABLET PO PRN (17:15)
[2020-08-10] MEDS ORDERED: LEVALBUTEROL HFA 45MCG/ACT 15 GM INHALER INH PRN (17:15)
[2020-08-10] MEDS ORDERED: DEXTROSE 50% 50 ML SYRINGE IV PRN (17:15)
[2020-08-10] MEDS: NS 1,000 ML IV SCH (17:27)
[2020-08-10] MEDS: HumaLOG INSULIN (NovoLOG) PER UNIT SC SCH ×2 (17:30→21:41)
[2020-08-10 18:26] LABS: RSV AMPLIFICATION NEGATIVE (NEGATIVE)
[2020-08-10 18:50] VITALS: BP 140/70
[2020-08-10] MEDS: ADVAIR HFA 115/21MCG INHALER INH SCH (20:00)
[2020-08-10] MEDS: NYSTATIN 100,000 UNITS/GM TOPICAL PWD 15 GM TOP SCH (21:40)
[2020-08-10] MEDS: ramipriL 5 MG CAP PO SCH (21:41)
[2020-08-10] MEDS: GABAPENTIN 300 MG CAP PO SCH (21:41)
[2020-08-10] MEDS: SIMVASTATIN 20 MG TAB PO SCH (21:41)
[2020-08-10] MEDS: LEVEMIR (INSULIN DETEMIR) 1 UNITS/0.01ML SC SCH (21:42)
[2020-08-10 22:00] VITALS: BP 161/79
[2020-08-11] MEDS: NS 1,000 ML IV SCH ×3 (03:16→23:00)
[2020-08-11 05:48] LABS: HEMATOCRIT 32.3 % (36.0-47.0); HEMOGLOBIN 9.7 g/dl (12.0-15.5); MEAN CORPUSCULAR VOLUME 93.4 fl (80.0-96.0); PLATELET COUNT, AUTOMATED 261 10^3/uL (150-450); RED BLOOD COUNT 3.46 10^6/uL (4.00-5.40); WHITE BLOOD COUNT 11.6 10^3/uL (4.0-10.0)
[2020-08-11 06:00] VITALS: BP 142/71
[2020-08-11 06:49] LABS: ALT/SGPT 24 U/L (12-78); BILIRUBIN,TOTAL 0.5 MG/DL (0.2-1.0); BLOOD UREA NITROGEN 16 MG/DL (7-18); CALCIUM LEVEL 8.8 MG/DL (8.8-10.2); CARBON DIOXIDE LEVEL 27 MEQ/L (21-32); CHLORIDE LEVEL 109 MEQ/L (98-107); CREATININE FOR GFR 0.81 MG/DL (0.55-1.30); GLOMERULAR FILTRATION RATE > 60.0 (>32); GLUCOSE, FASTING 193 MG/DL (70-100); POTASSIUM SERUM 3.9 MEQ/L (3.5-5.1); SODIUM LEVEL 141 MEQ/L (136-145)
[2020-08-11] MEDS: ADVAIR HFA 115/21MCG INHALER INH SCH ×2 (08:12→18:03)
[2020-08-11] MEDS: SERTRALINE HCL 50 MG TAB PO SCH (08:18)
[2020-08-11] MEDS: ACETAMINOPHEN TAB 650MG DOSE (2X325MG) PO PRN ×2 (08:18→22:11)
[2020-08-11] MEDS: HumaLOG INSULIN (NovoLOG) PER UNIT SC SCH ×4 (08:19→22:09)
[2020-08-11] MEDS: LEVEMIR (INSULIN DETEMIR) 1 UNITS/0.01ML SC SCH (08:19)
[2020-08-11] MEDS: NYSTATIN 100,000 UNITS/GM TOPICAL PWD 15 GM TOP SCH ×2 (08:20→22:10)
[2020-08-11] MEDS: bisoproloL fumarate 10 MG TAB PO SCH (09:21)
[2020-08-11] MEDS: HYDROCHLOROthiazide 6.25MG PER 1/4TAB PO SCH (09:22)
[2020-08-11 14:00] VITALS: BP 127/78
--- NOTE | 2020-08-11 15:55 | IPNPDOC ---
Date Seen The patient was seen on 08/11/20. Progress Note SUBJECTIVE: No events overnight. Still no contact information for caregiver, will ask PFS to get after weekend. Patient is still slightly confused without focal deficits but more awake and alert today. Not as agitated. She denies chest pain, shortness of breath. OBJECTIVE: PHYSICAL EXAMINATION: VITAL SIGNS: Please see below GENERAL APPEARANCE: Pleasantly confused. NAD. She is awake, more alert today and oriented to self, place. HEENT: Normocephalic, atraumatic. Mild conjunctival pallor. Anicteric sclera. CARDIOVASCULAR: tachycardia. Normal S1, S2. No murmurs appreciated. LUNGS: CTAB, no W/R/R ABDOMEN: Soft . Nontender. No guarding or rigidity appreciated. Normoactive bowel sounds present. MUSCULOSKELETAL: 5/5 UE muscle strength b/l; 4/5 b/l LE muscle strength EXTREMITIES: Mild swelling bilateral lower extremities with no pitting edema. No cyanosis or clubbing. 2+ radial and posterior tibial pulses bilaterally. NEUROLOGICAL: Follows commands without issues. No focal deficits PSYCHIATRIC: Mood and affect appropriate, pleasantly confused LABORATORY DATA: Please see below. IMAGING: CXR, 08/10/2020: Cardiac size appears enlarged as an interval change. There is mild interstitial coarsening as an interval change. Head CT w/o contrast, 08/10/2020: No acute intracranial abnormality. Unchanged from August 06, 2020.. MICROBIOLOGY: UA neg Blood cultures pending ASSESSMENT: 80yo female w/ pertinent h/o poorly controlled IDDM II, htn, and hld, who was admitted w/ altered mental status in the setting of hyperglycemia, hypercarbia. PLAN: Altered mental status 2/2 hyperglycemia, dehydration, hypercarbia. -At baseline patient is forgetful at times, no official diagnosis of age related memory loss or dementia -Need contact information for caregiver, unable to locate info -See treatment plans for individual issues below Fall 2/2 to undetermined cause, deconditioning -CT head neg -Unknown time patient was on floor -PT: Teri steady for mobility or SPT with 2 assist to ensure patient safety. OOB for all meals. -C/w PT/OT while here Hyperglycemia 2/2 poorly controlled IDDM II -BS still >200, eating well -Likely present due to noncompliance with home medications, unknown if patient has person who helps with medications at home. -BS better controlled, HbA1c 10.8, dehydrated -Serum acetone/beta hydroxybuty improved this AM. -Will c/w IVFs, incr to levemir 40 U SC BID, ISS, FS AC/HS, consistent/low sodium diet -Holding PO metformin Respiratory acidosis with secondary metabolic alkalosis -Possibly taking too much narcotics? at home, not monitored -? VESNA -No acute airway obstruction, no SOB or acute changes on CXR -Monitor closely -Nocturnal desat test ordered -Continue to hold opiates Leukocytosis -WBC 11.6 -Afebrile, could be reactive to stress or dehydration -UA neg, CXR no infiltrates -F/u Blood cultures, daily CBC -C/w IVFs for now Chronic anemia -No acute s/s of bleeding -H/H close to baseline -F/u daily CBC, Fe,TIBC, ferritin HTN -Stable -C.w home meds HLD - simvastatin Asthma -STable -Home ICF/laba medication Mood disorder -Home sertraline. Resolved issues: Hyperkalemia, acute 2/2 to unknown cause DISPOSITION: Admit to acute inpatient. Will need PT/OT prior to discharge back to assisted living situation. Will also need to be reassessed if patient needs home health or more monitoring living situation. PFS consulted. VS, I&O, 24H, [place] Vital Signs/I&O Vital Signs Date Time Temp Pulse Resp B/P (MAP) Pulse Ox O2 Delivery O2 Flow Rate FiO2 08/11/20 14:00 97.9 78 16 98 Room Air 08/11/20 09:21 142/76 I&O- Last 24 Hours up to 6 AM 08/11/20 06:00 Intake Total 1390 ml Output Total 450 ml Balance 940 ml Laboratory Data 24H LABS Laboratory Tests 2 08/10/20 17:31: Coronavirus (COVID-19)(PCR) NEGATIVE, Influenza Type A (RT-PCR) NEGATIVE, Influenza Type B (RT-PCR) NEGATIVE, Respiratory Syncytial Virus (PCR) NEGATIVE 08/10/20 18:04: Ammonia < 10 08/10/20 19:01: Bedside Glucose (Misc Panel) 264H 08/10/20 20:38: Bedside Glucose (Misc Panel) 315H 08/11/20 05:33: Nucleated Red Blood Cells % (auto) 0.0, Anion Gap 5L, Glomerular Filtration Rate > 60.0, Calcium Level 8.8, Total Bilirubin 0.5, Aspartate Amino Transf (AST/SGOT) 19, Alanine Aminotransferase (ALT/SGPT) 24, Alkaline Phosphatase 113, Ammonia 17, Total Protein 7.0, Albumin 3.0L, Albumin/Globulin Ratio 0.8L, B- Hydroxybutyrate 1.30 08/11/20 11:37: Bedside Glucose (Misc Panel) 203H CBC/BMP Laboratory Tests 08/11/20 05:33 Microbiology Microbiology 08/10/20 Blood Culture, Received Pending 08/10/20 Blood Culture, Received Pending Current Medications Current Medications Medications (Trade) Dose Ordered Sig/Carson Route PRN Reason Start Time Stop Time Status Last Admin Dose Admin Acetaminophen (Tylenol Tab) 650 mg Q4H PRN PO PAIN OR FEVER 08/10/20 16:45 08/11/20 08:18 Bisoprolol Fumarate (Zebeta) 10 mg DAILY PO 08/11/20 09:00 08/11/20 09:21 Dextrose (Dextrose 50%) 25 ml ASDIRECTED PRN IV SEE LABEL COMMENTS 08/10/20 17:15 Gabapentin (Neurontin) 600 mg QHS PO 08/10/20 21:00 08/10/20 21:41 Glucagon (Glucagon) 1 mg ASDIRECTED PRN SC SEE LABEL COMMENTS 08/10/20 17:15 Glucose (Glucose) 16 GM ASDIRECTED PRN PO SEE LABEL COMMENTS 08/10/20 17:15 Hydrochlorothiazide (Hydrodiuril) 6.25 mg DAILY PO 08/11/20 09:00 08/11/20 09:22 Insulin Detemir (Levemir Insulin) 38 units BID SC 08/10/20 21:00 08/11/20 08:19 Insulin Human Lispro (HumaLOG INSULIN) SEE PROTOCOL TABLE AC SC 08/10/20 17:30 08/11/20 12:43 Insulin Human Lispro (HumaLOG INSULIN) SEE PROTOCOL TABLE QHS SC 08/10/20 21:00 08/10/20 21:41 Levalbuterol HCl (Xopenex Hfa) 2 puff QIDP PRN INH SHORTNESS OF BREATH 08/10/20 17:15 Nystatin (Mycostatin Powder, Nystop) 1 dose BID TOP 08/10/20 21:00 08/11/20 08:20 Ramipril (Altace) 10 mg QHS PO 08/10/20 21:00 08/10/20 21:41 Salmeterol Xinafoate/ Fluticasone (Advair Hfa / ) 2 puff RBID INH 08/10/20 20:00 08/11/20 08:12 Sertraline HCl (Zoloft) 50 mg DAILY PO 08/11/20 09:00 08/11/20 08:18 Simvastatin (Zocor) 20 mg QHS PO 08/10/20 21:00 08/10/20 21:41 Sodium Chloride 1,000 ml @ 100 mls/hr Q10H IV 08/10/20 17:15 08/11/20 12:43 Sodium Chloride 1,000 ml @ 125 mls/hr Q8H IV 08/10/20 15:45 08/11/20 00:38 DC Allergies Coded Allergies: aspirin (Verified Allergy, Unknown, 09/07/19) codeine (Verified Adverse Reaction, Mild, VOMITING, 08/06/20) Suzie Umanzor MD Aug 11, 2020 15:55
[2020-08-11] MEDS: ENOXAPARIN 30MG/0.3ML SYRINGE (J1650 PER 10MG) SC SCH (19:22)
[2020-08-11] MEDS ORDERED: LEVEMIR (INSULIN DETEMIR) 1 UNITS/0.01ML SC SCH (21:00)
[2020-08-11 22:00] VITALS: BP 158/80
[2020-08-11] MEDS: SIMVASTATIN 20 MG TAB PO SCH (22:08)
[2020-08-11] MEDS: GABAPENTIN 300 MG CAP PO SCH (22:09)
[2020-08-11] MEDS: ramipriL 5 MG CAP PO SCH (22:15)
[2020-08-12 06:00] VITALS: BP 158/74
[2020-08-12 06:20] LABS: HEMATOCRIT 28.2 % (36.0-47.0); HEMOGLOBIN 8.4 g/dl (12.0-15.5); MEAN CORPUSCULAR HGB CONC 29.8 g/dl (32.0-36.5); PLATELET COUNT, AUTOMATED 235 10^3/uL (150-450)
[2020-08-12 06:52] LABS: ALBUMIN 2.4 GM/DL (3.2-5.2); ALT/SGPT 22 U/L (12-78); BILIRUBIN,TOTAL 0.2 MG/DL (0.2-1.0); BLOOD UREA NITROGEN 14 MG/DL (7-18); CALCIUM LEVEL 8.2 MG/DL (8.8-10.2); CARBON DIOXIDE LEVEL 26 MEQ/L (21-32); CHLORIDE LEVEL 112 MEQ/L (98-107); CREATININE FOR GFR 0.67 MG/DL (0.55-1.30); FERRITIN 79 NG/ML (8-252); GLOMERULAR FILTRATION RATE > 60.0 (>32); GLUCOSE, FASTING 84 MG/DL (70-100); IRON (FE) 15 UG/DL (50-170); PERCENT SATURATION 5.8 % (13.2-45.0); POTASSIUM SERUM 3.9 MEQ/L (3.5-5.1); SODIUM LEVEL 144 MEQ/L (136-145); TOTAL IRON BINDING CAPACITY 257 UG/DL (250-450); TOTAL PROTEIN 6.3 GM/DL (6.4-8.2)
[2020-08-12] MEDS: HumaLOG INSULIN (NovoLOG) PER UNIT SC SCH ×4 (07:30→21:00)
[2020-08-12] MEDS: HYDROCHLOROthiazide 6.25MG PER 1/4TAB PO SCH (09:16)
[2020-08-12] MEDS: NYSTATIN 100,000 UNITS/GM TOPICAL PWD 15 GM TOP SCH ×2 (09:16→20:08)
[2020-08-12] MEDS: SERTRALINE HCL 50 MG TAB PO SCH (09:16)
[2020-08-12] MEDS: FERROUS SULFATE 325MG TAB PO SCH ×2 (09:16→20:07)
[2020-08-12] MEDS: LEVEMIR (INSULIN DETEMIR) 1 UNITS/0.01ML SC SCH (09:16)
[2020-08-12] MEDS: bisoproloL fumarate 10 MG TAB PO SCH (09:16)
[2020-08-12] MEDS: DOCUSATE SODIUM 100MG CAPSULE PO SCH ×2 (09:16→20:07)
[2020-08-12] MEDS: ENOXAPARIN 30MG/0.3ML SYRINGE (J1650 PER 10MG) SC SCH (09:17)
[2020-08-12] MEDS: ADVAIR HFA 115/21MCG INHALER INH SCH ×2 (11:05→17:49)
--- NOTE | 2020-08-12 12:14 | ECGEPIP ---
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
[2020-08-12 13:34] VITALS: BP 138/65
--- NOTE | 2020-08-12 15:54 | IPNPDOC ---
Date Seen The patient was seen on 08/12/20. Progress Note SUBJECTIVE: No events overnight. Decreased AM levemir today due to lower than normal AM BS. Pleasantly confused on exam but unchanged from yesterday. PT: Teri steady for mobility or SPT with 2 assist to ensure patient safety. Recommending continued rehab currently. Eating well. She denies chest pain, shortness of breath. OBJECTIVE: PHYSICAL EXAMINATION: VITAL SIGNS: Please see below GENERAL APPEARANCE: Pleasantly confused. NAD. She is awake, alert and oriented to self, place. HEENT: Normocephalic, atraumatic. Mild conjunctival pallor. Anicteric sclera. CARDIOVASCULAR: tachycardia. Normal S1, S2. No murmurs appreciated. LUNGS: CTAB, no W/R/R ABDOMEN: Soft . Nontender. No guarding or rigidity appreciated. Normoactive bowel sounds present. MUSCULOSKELETAL: 5/5 UE muscle strength b/l; 4/5 b/l LE muscle strength EXTREMITIES: Mild swelling bilateral lower extremities with no pitting edema. No cyanosis or clubbing. 2+ radial and posterior tibial pulses bilaterally. NEUROLOGICAL: Follows commands without issues. No focal deficits PSYCHIATRIC: Mood and affect appropriate, pleasantly confused LABORATORY DATA: Please see below. IMAGING: CXR, 08/10/2020: Cardiac size appears enlarged as an interval change. There is mild interstitial coarsening as an interval change. Head CT w/o contrast, 08/10/2020: No acute intracranial abnormality. Unchanged from August 06, 2020.. MICROBIOLOGY: UA neg Blood cultures: NG ASSESSMENT: 80yo female w/ pertinent h/o poorly controlled IDDM II, htn, and hld, who was admitted w/ altered mental status in the setting of hyperglycemia, hypercarbia. PLAN: Altered mental status 2/2 hyperglycemia, dehydration, hypercarbia. -At baseline patient is not normally forgetful per caregiver, no official diagnosis of age related memory loss or dementia -See treatment plans for individual issues below Fall 2/2 to undetermined cause, deconditioning -CT head neg -PT: Teri steady for mobility or SPT with 2 assist to ensure patient safety. Recommending continued rehab currently -C/w PT/OT while here -PFS consulted Hyperglycemia 2/2 poorly controlled IDDM II -BS still >200, eating well -Caregiver says there is no concern at home for her taking her home meds or eating well at home -HbA1c 10.8, dehydrated -IVFs d/zuleika, levemir decreased, ISS, FS AC/HS, consistent/low sodium diet -Holding PO metformin Respiratory acidosis with secondary metabolic alkalosis- resolved -Possibly taking too much narcotics? at home, not monitored -? VESNA -No acute airway obstruction, no SOB or acute changes on CXR -Monitor closely -Nocturnal desat test ordered -Continue to hold opiates Leukocytosis poss 2/2 to reactive to stress or dehydration -WBC improving 11 -Afebrile -UA neg, CXR no infiltrates -Blood cultures NG -Daily CBC Chronic iron deficiency anemia -No acute s/s of bleeding -Started on ferrous sulfate BID -F/u occult blood -F/u daily CBC HTN -Stable -C.w home meds HLD - simvastatin Asthma -STable -Home ICF/laba medication Mood disorder -Home sertraline. Resolved issues: Hyperkalemia, acute 2/2 to unknown cause DISPOSITION: PT/OT: likely need rehab. 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 VS, I&O, 24H, [place] Vital Signs/I&O Vital Signs Date Time Temp Pulse Resp B/P (MAP) Pulse Ox O2 Delivery O2 Flow Rate FiO2 08/12/20 13:34 98.0 75 16 138/65 (89) 97 Room Air I&O- Last 24 Hours up to 6 AM 08/12/20 06:00 Intake Total 1520 ml Output Total 600 ml Balance 920 ml Laboratory Data 24H LABS Laboratory Tests 2 08/11/20 16:39: Bedside Glucose (Misc Panel) 168H 08/11/20 20:07: Bedside Glucose (Misc Panel) 255H 08/12/20 06:02: Nucleated Red Blood Cells % (auto) 0.0, Anion Gap 6L, Glomerular Filtration Rate > 60.0, Calcium Level 8.2L, Iron Level 15L, Total Iron Binding Capacity 257, Transferrin % Saturation 5.8L, Ferritin 79, Total Bilirubin 0.2#, Aspartate Amino Transf (AST/SGOT) 20, Alanine Aminotransferase (ALT/SGPT) 22, Alkaline Phosphatase 93, Total Protein 6.3L, Albumin 2.4L, Albumin/Globulin Ratio 0.6L 08/12/20 11:47: Bedside Glucose (Misc Panel) 234H CBC/BMP Laboratory Tests 08/12/20 06:02 Microbiology Microbiology 08/10/20 Blood Culture - Preliminary, Resulted No growth after 24 hours . All specim... 08/10/20 Blood Culture - Preliminary, Resulted No growth after 24 hours . All specim... Current Medications Current Medications Medications (Trade) Dose Ordered Sig/Carson Route PRN Reason Start Time Stop Time Status Last Admin Dose Admin Acetaminophen (Tylenol Tab) 650 mg Q4H PRN PO PAIN OR FEVER 08/10/20 16:45 08/11/20 22:11 Bisoprolol Fumarate (Zebeta) 10 mg DAILY PO 08/11/20 09:00 08/12/20 09:16 Dextrose (Dextrose 50%) 25 ml ASDIRECTED PRN IV SEE LABEL COMMENTS 08/10/20 17:15 Docusate Sodium (Colace) 100 mg BID PO 08/12/20 09:00 08/12/20 09:16 Enoxaparin Sodium (Lovenox) 30 mg DAILY SC 08/11/20 09:00 08/12/20 09:17 Ferrous Sulfate (Ferrous Sulfate) 325 mg BID PO 08/12/20 09:00 08/12/20 09:16 Gabapentin (Neurontin) 600 mg QHS PO 08/10/20 21:00 08/11/20 22:09 Glucagon (Glucagon) 1 mg ASDIRECTED PRN SC SEE LABEL COMMENTS 08/10/20 17:15 Glucose (Glucose) 16 GM ASDIRECTED PRN PO SEE LABEL COMMENTS 08/10/20 17:15 Hydrochlorothiazide (Hydrodiuril) 6.25 mg DAILY PO 08/11/20 09:00 08/12/20 09:16 Insulin Detemir (Levemir Insulin) 25 units QAM SC 08/12/20 09:00 08/12/20 09:16 Insulin Detemir (Levemir Insulin) 30 units QHS SC 08/12/20 21:00 Insulin Detemir (Levemir Insulin) 38 units BID SC 08/10/20 21:00 08/11/20 15:46 DC 08/11/20 08:19 Insulin Detemir (Levemir Insulin) 40 units BID SC 08/11/20 21:00 08/12/20 08:09 DC 08/11/20 22:09 Insulin Human Lispro (HumaLOG INSULIN) SEE PROTOCOL TABLE AC SC 08/10/20 17:30 08/12/20 12:24 Insulin Human Lispro (HumaLOG INSULIN) SEE PROTOCOL TABLE QHS SC 08/10/20 21:00 08/11/20 22:09 Levalbuterol HCl (Xopenex Hfa) 2 puff QIDP PRN INH SHORTNESS OF BREATH 08/10/20 17:15 Nystatin (Mycostatin Powder, Nystop) 1 dose BID TOP 08/10/20 21:00 08/12/20 09:16 Ramipril (Altace) 10 mg QHS PO 08/10/20 21:00 08/11/20 22:15 Salmeterol Xinafoate/ Fluticasone (Advair Hfa / ) 2 puff RBID INH 08/10/20 20:00 08/12/20 11:05 Sertraline HCl (Zoloft) 50 mg DAILY PO 08/11/20 09:00 08/12/20 09:16 Simvastatin (Zocor) 20 mg QHS PO 08/10/20 21:00 08/11/20 22:08 Sodium Chloride 1,000 ml @ 100 mls/hr Q10H IV 08/10/20 17:15 08/12/20 08:06 DC 08/11/20 12:43 Sodium Chloride 1,000 ml @ 125 mls/hr Q8H IV 08/10/20 15:45 08/11/20 00:38 DC Allergies Coded Allergies: aspirin (Verified Allergy, Unknown, 09/07/19) codeine (Verified Adverse Reaction, Mild, VOMITING, 08/06/20) Suzie Umanzor MD Aug 12, 2020 15:54
[2020-08-12] MEDS: ramipriL 5 MG CAP PO SCH (20:07)
[2020-08-12] MEDS: GABAPENTIN 300 MG CAP PO SCH (20:07)
[2020-08-12] MEDS: SIMVASTATIN 20 MG TAB PO SCH (20:07)
[2020-08-12] MEDS ORDERED: LEVEMIR (INSULIN DETEMIR) 1 UNITS/0.01ML SC SCH (21:00)
[2020-08-12] MEDS: ACETAMINOPHEN TAB 650MG DOSE (2X325MG) PO PRN (21:29)
[2020-08-12 22:00] VITALS: BP 142/64
[2020-08-13 06:00] VITALS: BP 156/74
[2020-08-13 06:34] LABS: HEMATOCRIT 29.3 % (36.0-47.0); HEMOGLOBIN 8.7 g/dl (12.0-15.5); MEAN CORPUSCULAR HEMOGLOBIN 28.1 pg (27.0-33.0); MEAN CORPUSCULAR HGB CONC 29.7 g/dl (32.0-36.5); MEAN CORPUSCULAR VOLUME 94.5 fl (80.0-96.0); PLATELET COUNT, AUTOMATED 256 10^3/uL (150-450); WHITE BLOOD COUNT 9.2 10^3/uL (4.0-10.0)
[2020-08-13 07:04] LABS: ALBUMIN 2.4 GM/DL (3.2-5.2); ALT/SGPT 21 U/L (12-78); BILIRUBIN,TOTAL 0.2 MG/DL (0.2-1.0); BLOOD UREA NITROGEN 12 MG/DL (7-18); CALCIUM LEVEL 8.4 MG/DL (8.8-10.2); CARBON DIOXIDE LEVEL 28 MEQ/L (21-32); CHLORIDE LEVEL 110 MEQ/L (98-107); CREATININE FOR GFR 0.67 MG/DL (0.55-1.30); GLOMERULAR FILTRATION RATE > 60.0 (>32); GLUCOSE, FASTING 87 MG/DL (70-100); POTASSIUM SERUM 4.2 MEQ/L (3.5-5.1); SODIUM LEVEL 143 MEQ/L (136-145); TOTAL PROTEIN 6.5 GM/DL (6.4-8.2)
[2020-08-13] MEDS: HumaLOG INSULIN (NovoLOG) PER UNIT SC SCH ×4 (07:30→20:29)
[2020-08-13] MEDS: ADVAIR HFA 115/21MCG INHALER INH SCH ×2 (08:22→19:56)
[2020-08-13] MEDS: bisoproloL fumarate 10 MG TAB PO SCH (09:21)
[2020-08-13] MEDS: FERROUS SULFATE 325MG TAB PO SCH ×2 (09:21→20:40)
[2020-08-13] MEDS: HYDROCHLOROthiazide 6.25MG PER 1/4TAB PO SCH (09:21)
[2020-08-13] MEDS: SERTRALINE HCL 50 MG TAB PO SCH (09:21)
[2020-08-13] MEDS: DOCUSATE SODIUM 100MG CAPSULE PO SCH ×2 (09:22→20:41)
[2020-08-13] MEDS: LEVEMIR (INSULIN DETEMIR) 1 UNITS/0.01ML SC SCH ×2 (09:22→20:39)
[2020-08-13] MEDS: ENOXAPARIN 30MG/0.3ML SYRINGE (J1650 PER 10MG) SC SCH (09:22)
[2020-08-13] MEDS: NYSTATIN 100,000 UNITS/GM TOPICAL PWD 15 GM TOP SCH ×2 (09:23→20:41)
[2020-08-13] MEDS: ACETAMINOPHEN TAB 650MG DOSE (2X325MG) PO PRN ×2 (09:38→20:40)
[2020-08-13 14:00] VITALS: BP 128/60
--- NOTE | 2020-08-13 17:03 | NOCOX ---
DATE OF SERVICE: 08/12/2020 - 08/13/2020 Total recording time was 5 hours and 1 minute. Oxygen saturation ranged from 89-99%. Heart rate ranged from 59-84%. There was no significant time with an oxygen saturation less than 88%. There was minimal variability in the oxygen saturation intermittently throughout the night. If there is concern for obstructive sleep apnea would consider referral for diagnostic outpatient polysomnogram. IMPRESSION: Variable desaturations without significant hypoxia. If there is concern for sleep apnea would consider outpatient nocturnal polysomnogram.
--- NOTE | 2020-08-13 18:37 | IPNPDOC ---
Date Seen The patient was seen on 08/13/20. Progress Note SUBJECTIVE: Much more awake and alert today, increased levemir to 30 BID. Cognitive eval ordered per speech therapy's request. Progressing well per PT. She denies chest pain, shortness of breath. OBJECTIVE: PHYSICAL EXAMINATION: VITAL SIGNS: Please see below GENERAL APPEARANCE: Pleasant, not confused on exam NAD. She is awake, alert and oriented x3 HEENT: Normocephalic, atraumatic. Mild conjunctival pallor. Anicteric sclera. CARDIOVASCULAR: tachycardia. Normal S1, S2. No murmurs appreciated. LUNGS: CTAB, no W/R/R ABDOMEN: Soft . Nontender. No guarding or rigidity appreciated. Normoactive bowel sounds present. MUSCULOSKELETAL: 5/5 UE muscle strength b/l; 4/5 b/l LE muscle strength EXTREMITIES: Mild swelling bilateral lower extremities with no pitting edema. No cyanosis or clubbing. 2+ radial and posterior tibial pulses bilaterally. NEUROLOGICAL: Follows commands without issues. No focal deficits. CN 2-12 intact PSYCHIATRIC: Mood and affect appropriate LABORATORY DATA: Please see below. IMAGING: CXR, 08/10/2020: Cardiac size appears enlarged as an interval change. There is mild interstitial coarsening as an interval change. Head CT w/o contrast, 08/10/2020: No acute intracranial abnormality. Unchanged from August 06, 2020.. MICROBIOLOGY: UA neg Blood cultures: NG ASSESSMENT: 80yo female w/ pertinent h/o poorly controlled IDDM II, htn, and hld, who was a dmitted w/ altered mental status in the setting of hyperglycemia, hypercarbia. PLAN: Altered mental status 2/2 hyperglycemia, dehydration, hypercarbia- improved currently AAOx3 -At baseline patient is not normally forgetful per caregiver, no official diagnosis of age related memory loss or dementia -Concerns expressed by physical therapist that she has difficulty with some of the higher level of though questions they asked her -Cognitive evaluation put in to be done 08/14/20 -See treatment plans for individual issues below Fall 2/2 to undetermined cause, deconditioning -CT head neg -PT: demonstrates progress compared to initial PT eval on admission; requires only CGA to safely transfer and ambulate with a RW. Decreased safety awareness noted with pt requiring VC's for hand placement and encouragement to attend to tasks due to pt fixation on her impairments. Pt lives alone with aide assistance for meals and cleaning 2-3x/week; needs to demonstrate consistently safe functional mobility to return home. Recommend consideration of ST cognitive eval due to questionable safety with medication management. Discharge Recommendations: Home with services -C/w PT/OT while here -PFS consulted Hyperglycemia 2/2 poorly controlled IDDM II -BS still >200, eating well -Caregiver says there is no concern at home for her taking her home meds or eating well at home -HbA1c 10.8 -Increased levemir to 30 BID, ISS, FS AC/HS, consistent/low sodium diet -Holding PO metformin Chronic iron deficiency anemia -No acute s/s of bleeding -Started on ferrous sulfate BID -F/u occult blood -F/u daily CBC HTN -Stable -C.w home meds HLD - simvastatin Asthma -STable -Home ICF/laba medication Mood disorder -Home sertraline. Resolved issues: Hyperkalemia, acute 2/2 to unknown cause Respiratory acidosis with secondary metabolic alkalosis-Possibly taking too much narcotics? at home, not monitored Leukocytosis poss 2/2 to reactive to stress or dehydration DISPOSITION: PT/OT: home with services likely. cognitive evaluation in AM. VS, I&O, 24H, Fishbone Vital Signs/I&O Vital Signs Date Time Temp Pulse Resp B/P (MAP) Pulse Ox O2 Delivery O2 Flow Rate FiO2 08/13/20 14:00 98.0 68 18 128/60 (82) 97 Room Air I&O- Last 24 Hours up to 6 AM 08/13/20 05:59 Intake Total 580 ml Output Total 300 ml Balance 280 ml Laboratory Data 24H LABS Laboratory Tests 2 08/12/20 20:28: Bedside Glucose (Misc Panel) 168H 08/13/20 05:33: Nucleated Red Blood Cells % (auto) 0.0, Anion Gap 5L, Glomerular Filtration Rate > 60.0, Calcium Level 8.4L, Total Bilirubin 0.2, Aspartate Amino Transf (AST/SGOT) 16, Alanine Aminotransferase (ALT/SGPT) 21, Alkaline Phosphatase 100, Total Protein 6.5, Albumin 2.4L, Albumin/Globulin Ratio 0.6L 08/13/20 11:36: Bedside Glucose (Misc Panel) 265H 08/13/20 16:31: Bedside Glucose (Misc Panel) 252H CBC/BMP Laboratory Tests 08/13/20 05:33 Microbiology Microbiology 08/10/20 Blood Culture - Preliminary, Resulted No Growth after 48 hours. All Specime... 08/10/20 Blood Culture - Preliminary, Resulted No Growth after 72 hours. All specime... Current Medications Current Medications Medications (Trade) Dose Ordered Sig/Carson Route PRN Reason Start Time Stop Time Status Last Admin Dose Admin Acetaminophen (Tylenol Tab) 650 mg Q4H PRN PO PAIN OR FEVER 08/10/20 16:45 08/13/20 09:38 Bisoprolol Fumarate (Zebeta) 10 mg DAILY PO 08/11/20 09:00 08/13/20 09:21 Dextrose (Dextrose 50%) 25 ml ASDIRECTED PRN IV SEE LABEL COMMENTS 08/10/20 17:15 Docusate Sodium (Colace) 100 mg BID PO 08/12/20 09:00 08/13/20 09:22 Enoxaparin Sodium (Lovenox) 30 mg DAILY SC 08/11/20 09:00 08/13/20 09:22 Ferrous Sulfate (Ferrous Sulfate) 325 mg BID PO 08/12/20 09:00 08/13/20 09:21 Gabapentin (Neurontin) 600 mg QHS PO 08/10/20 21:00 08/12/20 20:07 Glucagon (Glucagon) 1 mg ASDIRECTED PRN SC SEE LABEL COMMENTS 08/10/20 17:15 Glucose (Glucose) 16 GM ASDIRECTED PRN PO SEE LABEL COMMENTS 08/10/20 17:15 Hydrochlorothiazide (Hydrodiuril) 6.25 mg DAILY PO 08/11/20 09:00 08/13/20 09:21 Insulin Detemir (Levemir Insulin) 25 units QAM SC 08/12/20 09:00 08/13/20 09:22 Insulin Detemir (Levemir Insulin) 30 units QHS SC 08/12/20 21:00 08/12/20 21:28 Insulin Detemir (Levemir Insulin) 38 units BID SC 08/10/20 21:00 08/11/20 15:46 DC 08/11/20 08:19 Insulin Detemir (Levemir Insulin) 40 units BID SC 08/11/20 21:00 08/12/20 08:09 DC 08/11/20 22:09 Insulin Human Lispro (HumaLOG INSULIN) SEE PROTOCOL TABLE AC SC 08/10/20 17:30 08/13/20 17:13 Insulin Human Lispro (HumaLOG INSULIN) SEE PROTOCOL TABLE QHS SC 08/10/20 21:00 08/11/20 22:09 Levalbuterol HCl (Xopenex Hfa) 2 puff QIDP PRN INH SHORTNESS OF BREATH 08/10/20 17:15 Nystatin (Mycostatin Powder, Nystop) 1 dose BID TOP 08/10/20 21:00 08/13/20 09:23 Ramipril (Altace) 10 mg QHS PO 08/10/20 21:00 08/12/20 20:07 Salmeterol Xinafoate/ Fluticasone (Advair Hfa ) 2 puff RBID INH 08/10/20 20:00 08/13/20 08:22 Sertraline HCl (Zoloft) 50 mg DAILY PO 08/11/20 09:00 08/13/20 09:21 Simvastatin (Zocor) 20 mg QHS PO 08/10/20 21:00 08/12/20 20:07 Sodium Chloride 1,000 ml @ 100 mls/hr Q10H IV 08/10/20 17:15 08/12/20 08:06 DC 08/11/20 12:43 Sodium Chloride 1,000 ml @ 125 mls/hr Q8H IV 08/10/20 15:45 08/11/20 00:38 DC Allergies Coded Allergies: aspirin (Verified Allergy, Unknown, 09/07/19) codeine (Verified Adverse Reaction, Mild, VOMITING, 08/06/20) Suzie Umanzor MD Aug 13, 2020 18:37
[2020-08-13] MEDS: ramipriL 5 MG CAP PO SCH (20:39)
[2020-08-13] MEDS: GABAPENTIN 300 MG CAP PO SCH (20:40)
[2020-08-13] MEDS: SIMVASTATIN 20 MG TAB PO SCH (20:40)
[2020-08-13 22:00] VITALS: BP 155/69
[2020-08-14 06:00] VITALS: BP 131/58
[2020-08-14 06:29] LABS: MEAN CORPUSCULAR VOLUME 93.2 fl (80.0-96.0); PLATELET COUNT, AUTOMATED 285 10^3/uL (150-450); RED BLOOD COUNT 3.22 10^6/uL (4.00-5.40)
[2020-08-14 06:50] LABS: ALBUMIN 2.4 GM/DL (3.2-5.2); ALT/SGPT 20 U/L (12-78); BILIRUBIN,TOTAL 0.3 MG/DL (0.2-1.0); BLOOD UREA NITROGEN 13 MG/DL (7-18); CALCIUM LEVEL 8.6 MG/DL (8.8-10.2); CARBON DIOXIDE LEVEL 29 MEQ/L (21-32); CHLORIDE LEVEL 108 MEQ/L (98-107); CREATININE FOR GFR 0.63 MG/DL (0.55-1.30); GLOMERULAR FILTRATION RATE > 60.0 (>32); GLUCOSE, FASTING 81 MG/DL (70-100); SODIUM LEVEL 142 MEQ/L (136-145)
[2020-08-14] MEDS: HumaLOG INSULIN (NovoLOG) PER UNIT SC SCH ×4 (07:23→21:00)
[2020-08-14] MEDS: ADVAIR HFA 115/21MCG INHALER INH SCH ×2 (07:24→18:11)
[2020-08-14] MEDS: DOCUSATE SODIUM 100MG CAPSULE PO SCH ×2 (08:29→21:13)
[2020-08-14] MEDS: SERTRALINE HCL 50 MG TAB PO SCH (08:29)
[2020-08-14] MEDS: bisoproloL fumarate 10 MG TAB PO SCH (08:29)
[2020-08-14] MEDS: FERROUS SULFATE 325MG TAB PO SCH ×2 (08:29→21:13)
[2020-08-14] MEDS: HYDROCHLOROthiazide 6.25MG PER 1/4TAB PO SCH (08:29)
[2020-08-14] MEDS: ENOXAPARIN 30MG/0.3ML SYRINGE (J1650 PER 10MG) SC SCH (08:30)
[2020-08-14] MEDS: NYSTATIN 100,000 UNITS/GM TOPICAL PWD 15 GM TOP SCH ×2 (08:30→21:14)
[2020-08-14] MEDS: LEVEMIR (INSULIN DETEMIR) 1 UNITS/0.01ML SC SCH ×2 (08:30→23:09)
[2020-08-14] MEDS: ACETAMINOPHEN TAB 650MG DOSE (2X325MG) PO PRN ×2 (11:09→21:16)
--- NOTE | 2020-08-14 12:30 | IPNPDOC ---
Date Seen The patient was seen on 08/14/20. Progress Note SUBJECTIVE: Patient wants to go home today and has no new complaints. Per RN. She has been increasingly forgetful and tangential with her conversations. Physical therapy has cleared. The patient aware awaiting speech cognitive evaluation. She denies any upper or lower extremity weakness, paresthesias. . She is alert and oriented OBJECTIVE: PHYSICAL EXAMINATION: VITAL SIGNS: Please see below GENERAL APPEARANCE: No facial asymmetry HEENT: Normocephalic, atraumatic. Mild conjunctival pallor. Anicteric sclera., No cyanosis CARDIOVASCULAR: tachycardia. Normal S1, S2. No murmurs LUNGS: CTAB, no adventitious breath sounds ABDOMEN: Soft . Nontender. No guarding or rigidity appreciated. Normoactive bowel sounds 4 quadrants EXTREMITIES: No pitting edema NEUROLOGICAL: Awake, alert, oriented to person, place. Answers questions appropriately. Face is symmetric. Tongue is midline. No pronator drift. Negative Babinski. Motor function is 5 out of 54 extremities. Slight dysmetria on finger to nose testing. No nystagmus horizontal or vertical. DTRs are intact bilateral upper and lower extremities. LABORATORY DATA: Please see below. IMAGING: CXR, 08/10/2020: Cardiac size appears enlarged as an interval change. There is mild interstitial coarsening as an interval change. Head CT w/o contrast, 08/10/2020: No acute intracranial abnormality. Unchanged from August 06, 2020.. MICROBIOLOGY: UA neg Blood cultures: NG ASSESSMENT: 80yo female history of diabetes, hypertension, hyperlipidemia, admitted for acute encephalopathy due to fall, acute hypercarbic respiratory failure and hyperglycemia. PROBLEM LIST Hypercarbia Hyperglycemia Fall Acute encephalopathy , CVA ruled out with negative MRI of the brain , Chronic iron deficiency anemia , Hypertension , Hyperlipidemia , Depression , Asthma, compensated Plan: Awaiting speech therapy cognitive evaluation. She has passed home safety evaluation by physical therapy. Medically stable for discharge . We'll make recommendations after review his speech therapy cognitive evaluation report. Consulted acute rehabilitation unit. Discharge home if no recommendations for from speech therapy with home care VS, I&O, 24H, Fishbone Vital Signs/I&O Vital Signs Date Time Temp Pulse Resp B/P (MAP) Pulse Ox O2 Delivery O2 Flow Rate FiO2 08/14/20 08:29 72 131/58 08/14/20 06:00 98.4 19 96 Room Air I&O- Last 24 Hours up to 6 AM 08/14/20 06:00 Intake Total 690 ml Output Total 775 ml Balance -85 ml Laboratory Data 24H LABS Laboratory Tests 2 08/13/20 16:31: Bedside Glucose (Misc Panel) 252H 08/13/20 20:20: Bedside Glucose (Misc Panel) 151H 08/14/20 05:38: Nucleated Red Blood Cells % (auto) 0.0, Anion Gap 5L, Glomerular Filtration Rate > 60.0, Calcium Level 8.6L, Total Bilirubin 0.3, Aspartate Amino Transf (AST /SGOT) 14, Alanine Aminotransferase (ALT/SGPT) 20, Alkaline Phosphatase 94, Total Protein 7.0, Albumin 2.4L, Albumin/Globulin Ratio 0.5L 08/14/20 11:40: Bedside Glucose (Misc Panel) 245H CBC/BMP Laboratory Tests 08/14/20 05:38 Microbiology Microbiology 08/10/20 Blood Culture - Preliminary, Resulted No Growth after 72 hours. All specime... 08/10/20 Blood Culture - Preliminary, Resulted No Growth after 72 hours. All specime... MARILIA PORTILLO MD Aug 14, 2020 12:30
[2020-08-14 14:00] VITALS: BP 133/58
[2020-08-14] MEDS: GABAPENTIN 300 MG CAP PO SCH (21:13)
[2020-08-14] MEDS: ramipriL 5 MG CAP PO SCH (21:13)
[2020-08-14] MEDS: SIMVASTATIN 20 MG TAB PO SCH (21:13)
[2020-08-14 22:00] VITALS: BP 158/70
[2020-08-15 06:00] VITALS: BP 135/62
[2020-08-15] MEDS: ADVAIR HFA 115/21MCG INHALER INH SCH ×2 (07:22→20:16)
[2020-08-15] MEDS: HumaLOG INSULIN (NovoLOG) PER UNIT SC SCH ×4 (08:22→20:48)
[2020-08-15] MEDS: LEVEMIR (INSULIN DETEMIR) 1 UNITS/0.01ML SC SCH ×2 (08:22→20:48)
[2020-08-15] MEDS: bisoproloL fumarate 10 MG TAB PO SCH (08:23)
[2020-08-15] MEDS: HYDROCHLOROthiazide 6.25MG PER 1/4TAB PO SCH (08:23)
[2020-08-15] MEDS: ENOXAPARIN 30MG/0.3ML SYRINGE (J1650 PER 10MG) SC SCH (08:24)
[2020-08-15] MEDS: FERROUS SULFATE 325MG TAB PO SCH ×2 (08:24→20:47)
[2020-08-15] MEDS: NYSTATIN 100,000 UNITS/GM TOPICAL PWD 15 GM TOP SCH ×2 (08:24→20:49)
[2020-08-15] MEDS: DOCUSATE SODIUM 100MG CAPSULE PO SCH ×2 (08:24→20:47)
[2020-08-15] MEDS: SERTRALINE HCL 50 MG TAB PO SCH (08:25)
--- NOTE | 2020-08-15 10:14 | IPNPDOC ---
Date Seen The patient was seen on 08/15/20. Progress Note SUBJECTIVE: PT recommendations are for subacute rehabilitation. Pt still c/o gait instability, and agrees with rehab placement. "My was at [facility]. I don't have anyone for the holidays, so I'm okay to stay here." no c/o sob, cp, pressure, lightheadedness. OBJECTIVE: PHYSICAL EXAMINATION: VITAL SIGNS: Please see below GENERAL APPEARANCE: No facial asymmetry no distress HEENT: Normocephalic, atraumatic. Mild conjunctival pallor. Anicteric sclera., No cyanosis CARDIOVASCULAR: tachycardia. Normal S1, S2. No murmurs LUNGS: CTAB, no adventitious breath sounds ABDOMEN: Soft . Nontender. No guarding or rigidity appreciated. Normoactive bowel sounds 4 quadrants EXTREMITIES: No pitting edema NEUROLOGICAL: Awake, alert, oriented to person, place. Answers questions appropriately. Face is symmetric. Tongue is midline. No pronator drift. Negative Babinski. Motor function is 5 out of 54 extremities. Slight dysmetria on finger to nose testing. No nystagmus horizontal or vertical. DTRs are intact bilateral upper and lower extremities. LABORATORY DATA: Please see below. IMAGING: CXR, 08/10/2020: Cardiac size appears enlarged as an interval change. There is mild interstitial coarsening as an interval change. Head CT w/o contrast, 08/10/2020: No acute intracranial abnormality. Unchanged from August 06, 2020.. MICROBIOLOGY: UA neg Blood cultures: NG ASSESSMENT: 80yo female history of diabetes, hypertension, hyperlipidemia, admitted for acute encephalopathy due to fall, acute hypercarbic respiratory failure and hyperglycemia. PROBLEM LIST Hypercarbia,resolved Hyperglycemia,resolved Fall Acute encephalopathy , CVA ruled out with negative MRI of the brain , Chronic iron deficiency anemia , Hypertension , Hyperlipidemia , Depression , Asthma, compensated Plan: will change to alc/snf status. continue present management. awaiting subacute rehab placement. VS, I&O, 24H, Fishbone Vital Signs/I&O Vital Signs Date Time Temp Pulse Resp B/P (MAP) Pulse Ox O2 Delivery O2 Flow Rate FiO2 08/15/20 08:23 68 134/61 08/15/20 06:00 98.4 15 94 08/15/20 06:00 Room Air I&O- Last 24 Hours up to 6 AM 08/15/20 06:00 Intake Total 870 ml Output Total 1250 ml Balance -380 ml Laboratory Data 24H LABS Laboratory Tests 2 08/14/20 11:40: Bedside Glucose (Misc Panel) 245H 08/14/20 16:54: Bedside Glucose (Misc Panel) 191H 08/14/20 20:47: Bedside Glucose (Misc Panel) 114H 08/15/20 06:29: Bedside Glucose (Misc Panel) 196H Microbiology Microbiology 08/10/20 Blood Culture - Preliminary, Resulted No Growth after 72 hours. All specime... 08/10/20 Blood Culture - Preliminary, Resulted No Growth after 72 hours. All specime... MARILIA PORTILLO MD Aug 15, 2020 10:14
[2020-08-15] MEDS: ramipriL 5 MG CAP PO SCH (20:47)
[2020-08-15] MEDS: GABAPENTIN 300 MG CAP PO SCH (20:47)
[2020-08-15] MEDS: SIMVASTATIN 20 MG TAB PO SCH (20:48)
[2020-08-15] MEDS: ACETAMINOPHEN TAB 650MG DOSE (2X325MG) PO PRN (20:49)
[2020-08-16 06:00] VITALS: BP 139/65
[2020-08-16] MEDS: ADVAIR HFA 115/21MCG INHALER INH SCH ×2 (08:13→19:31)
[2020-08-16] MEDS: bisoproloL fumarate 10 MG TAB PO SCH (08:51)
[2020-08-16] MEDS: DOCUSATE SODIUM 100MG CAPSULE PO SCH ×2 (08:52→21:42)
[2020-08-16] MEDS: HYDROCHLOROthiazide 6.25MG PER 1/4TAB PO SCH (08:52)
[2020-08-16] MEDS: FERROUS SULFATE 325MG TAB PO SCH ×2 (08:52→21:42)
[2020-08-16] MEDS: SERTRALINE HCL 50 MG TAB PO SCH (08:52)
[2020-08-16] MEDS: HumaLOG INSULIN (NovoLOG) PER UNIT SC SCH ×4 (08:53→21:43)
[2020-08-16] MEDS: LEVEMIR (INSULIN DETEMIR) 1 UNITS/0.01ML SC SCH ×2 (08:53→21:43)
[2020-08-16] MEDS: ENOXAPARIN 30MG/0.3ML SYRINGE (J1650 PER 10MG) SC SCH (08:53)
[2020-08-16] MEDS: NYSTATIN 100,000 UNITS/GM TOPICAL PWD 15 GM TOP SCH ×2 (08:54→21:42)
[2020-08-16] MEDS: SIMVASTATIN 20 MG TAB PO SCH (21:42)
[2020-08-16] MEDS: GABAPENTIN 300 MG CAP PO SCH (21:42)
[2020-08-16] MEDS: ACETAMINOPHEN TAB 650MG DOSE (2X325MG) PO PRN (21:44)
[2020-08-16] MEDS: ramipriL 5 MG CAP PO SCH (21:51)
[2020-08-17 06:00] VITALS: BP 134/69
[2020-08-17] MEDS: LEVEMIR (INSULIN DETEMIR) 1 UNITS/0.01ML SC SCH ×2 (08:02→23:12)
[2020-08-17] MEDS: ENOXAPARIN 30MG/0.3ML SYRINGE (J1650 PER 10MG) SC SCH (08:11)
[2020-08-17] MEDS: SERTRALINE HCL 50 MG TAB PO SCH (08:12)
[2020-08-17] MEDS: DOCUSATE SODIUM 100MG CAPSULE PO SCH ×2 (08:12→23:11)
[2020-08-17] MEDS: HumaLOG INSULIN (NovoLOG) PER UNIT SC SCH ×4 (08:12→21:00)
[2020-08-17] MEDS: NYSTATIN 100,000 UNITS/GM TOPICAL PWD 15 GM TOP SCH ×2 (08:12→23:13)
[2020-08-17] MEDS: FERROUS SULFATE 325MG TAB PO SCH ×2 (08:12→23:11)
[2020-08-17] MEDS: bisoproloL fumarate 10 MG TAB PO SCH (08:14)
[2020-08-17] MEDS: HYDROCHLOROthiazide 6.25MG PER 1/4TAB PO SCH (08:15)
[2020-08-17] MEDS: ADVAIR HFA 115/21MCG INHALER INH SCH ×2 (08:36→20:16)
[2020-08-17] MEDS: ACETAMINOPHEN TAB 650MG DOSE (2X325MG) PO PRN (23:07)
[2020-08-17] MEDS: ramipriL 5 MG CAP PO SCH (23:10)
[2020-08-17] MEDS: GABAPENTIN 300 MG CAP PO SCH (23:11)
[2020-08-17] MEDS: SIMVASTATIN 20 MG TAB PO SCH (23:12)
[2020-08-18 06:00] VITALS: BP 108/62
[2020-08-18] MEDS: HumaLOG INSULIN (NovoLOG) PER UNIT SC SCH ×4 (07:30→21:00)
[2020-08-18] MEDS: ADVAIR HFA 115/21MCG INHALER INH SCH ×2 (07:50→20:09)
[2020-08-18] MEDS: SERTRALINE HCL 50 MG TAB PO SCH (09:30)
[2020-08-18] MEDS: DOCUSATE SODIUM 100MG CAPSULE PO SCH ×2 (09:30→21:57)
[2020-08-18] MEDS: ENOXAPARIN 30MG/0.3ML SYRINGE (J1650 PER 10MG) SC SCH (09:30)
[2020-08-18] MEDS: FERROUS SULFATE 325MG TAB PO SCH ×2 (09:30→21:57)
[2020-08-18] MEDS: bisoproloL fumarate 10 MG TAB PO SCH (09:32)
[2020-08-18] MEDS: HYDROCHLOROthiazide 6.25MG PER 1/4TAB PO SCH (09:33)
[2020-08-18] MEDS: NYSTATIN 100,000 UNITS/GM TOPICAL PWD 15 GM TOP SCH ×2 (09:33→21:55)
[2020-08-18] MEDS: LEVEMIR (INSULIN DETEMIR) 1 UNITS/0.01ML SC SCH ×2 (09:33→21:57)
[2020-08-18] MEDS: GABAPENTIN 300 MG CAP PO SCH (21:57)
[2020-08-18] MEDS: SIMVASTATIN 20 MG TAB PO SCH (21:57)
[2020-08-18] MEDS: ramipriL 5 MG CAP PO SCH (22:02)
[2020-08-18] MEDS: ACETAMINOPHEN TAB 650MG DOSE (2X325MG) PO PRN (22:06)
[2020-08-19 06:00] VITALS: BP 118/54
[2020-08-19] MEDS: HumaLOG INSULIN (NovoLOG) PER UNIT SC SCH ×5 (07:16→21:36)
[2020-08-19] MEDS: ADVAIR HFA 115/21MCG INHALER INH SCH ×2 (07:39→20:16)
[2020-08-19] MEDS: LEVEMIR (INSULIN DETEMIR) 1 UNITS/0.01ML SC SCH ×2 (07:42→21:36)
[2020-08-19] MEDS: FERROUS SULFATE 325MG TAB PO SCH ×2 (10:01→21:35)
[2020-08-19] MEDS: DOCUSATE SODIUM 100MG CAPSULE PO SCH ×2 (10:01→21:35)
[2020-08-19] MEDS: HYDROCHLOROthiazide 6.25MG PER 1/4TAB PO SCH (10:02)
[2020-08-19] MEDS: SERTRALINE HCL 50 MG TAB PO SCH (10:02)
[2020-08-19] MEDS: NYSTATIN 100,000 UNITS/GM TOPICAL PWD 15 GM TOP SCH ×2 (10:03→21:36)
[2020-08-19] MEDS: ENOXAPARIN 30MG/0.3ML SYRINGE (J1650 PER 10MG) SC SCH (10:03)
[2020-08-19] MEDS: bisoproloL fumarate 10 MG TAB PO SCH (10:03)
[2020-08-19] MEDS: SIMVASTATIN 20 MG TAB PO SCH (21:35)
[2020-08-19] MEDS: GABAPENTIN 300 MG CAP PO SCH (21:35)
[2020-08-19] MEDS: ramipriL 5 MG CAP PO SCH (21:35)
[2020-08-20 06:00] VITALS: BP 124/60
[2020-08-20] MEDS: ADVAIR HFA 115/21MCG INHALER INH SCH ×2 (07:43→20:08)
[2020-08-20] MEDS ORDERED: HumaLOG INSULIN (NovoLOG) PER UNIT SC ONE (09:00)
[2020-08-20] MEDS: ENOXAPARIN 30MG/0.3ML SYRINGE (J1650 PER 10MG) SC SCH (09:29)
[2020-08-20] MEDS: LEVEMIR (INSULIN DETEMIR) 1 UNITS/0.01ML SC SCH ×2 (09:30→21:04)
[2020-08-20] MEDS: DOCUSATE SODIUM 100MG CAPSULE PO SCH ×2 (09:31→21:03)
[2020-08-20] MEDS: HYDROCHLOROthiazide 6.25MG PER 1/4TAB PO SCH (09:31)
[2020-08-20] MEDS: bisoproloL fumarate 10 MG TAB PO SCH (09:31)
[2020-08-20] MEDS: SERTRALINE HCL 50 MG TAB PO SCH (09:31)
[2020-08-20] MEDS: FERROUS SULFATE 325MG TAB PO SCH ×2 (09:31→21:03)
[2020-08-20] MEDS: NYSTATIN 100,000 UNITS/GM TOPICAL PWD 15 GM TOP SCH ×2 (09:31→21:04)
[2020-08-20] MEDS: HumaLOG INSULIN (NovoLOG) PER UNIT SC SCH ×3 (12:46→21:03)
[2020-08-20] MEDS: CARBAMIDE PEROXIDE 6.5% OTIC SOLN 15ML AU SCH ×2 (13:14→20:59)
[2020-08-20 14:09] VITALS: BP 126/58
[2020-08-20] MEDS: SIMVASTATIN 20 MG TAB PO SCH (21:03)
[2020-08-20] MEDS: GABAPENTIN 300 MG CAP PO SCH (21:03)
[2020-08-20] MEDS: ramipriL 5 MG CAP PO SCH (21:03)
[2020-08-20] MEDS: ACETAMINOPHEN TAB 650MG DOSE (2X325MG) PO PRN (21:04)
[2020-08-21 06:00] VITALS: BP 104/57
[2020-08-21] MEDS: HumaLOG INSULIN (NovoLOG) PER UNIT SC SCH ×4 (07:30→20:36)
[2020-08-21] MEDS: ADVAIR HFA 115/21MCG INHALER INH SCH ×2 (07:49→19:49)
[2020-08-21] MEDS: CARBAMIDE PEROXIDE 6.5% OTIC SOLN 15ML AU SCH ×2 (09:52→20:37)
[2020-08-21] MEDS: NYSTATIN 100,000 UNITS/GM TOPICAL PWD 15 GM TOP SCH ×2 (09:52→20:37)
[2020-08-21] MEDS: DOCUSATE SODIUM 100MG CAPSULE PO SCH ×2 (09:52→20:36)
[2020-08-21] MEDS: SERTRALINE HCL 50 MG TAB PO SCH (09:52)
[2020-08-21] MEDS: FERROUS SULFATE 325MG TAB PO SCH ×2 (09:53→20:36)
[2020-08-21] MEDS: LEVEMIR (INSULIN DETEMIR) 1 UNITS/0.01ML SC SCH ×2 (09:53→20:37)
[2020-08-21] MEDS: HYDROCHLOROthiazide 6.25MG PER 1/4TAB PO SCH (09:53)
[2020-08-21] MEDS: ENOXAPARIN 30MG/0.3ML SYRINGE (J1650 PER 10MG) SC SCH (09:53)
[2020-08-21] MEDS: bisoproloL fumarate 10 MG TAB PO SCH (09:53)
[2020-08-21] MEDS: ACETAMINOPHEN TAB 650MG DOSE (2X325MG) PO PRN (17:31)
[2020-08-21] MEDS: ramipriL 5 MG CAP PO SCH (20:36)
[2020-08-21] MEDS: GABAPENTIN 300 MG CAP PO SCH (20:36)
[2020-08-21] MEDS: SIMVASTATIN 20 MG TAB PO SCH (20:36)
[2020-08-22] MEDS: ACETAMINOPHEN TAB 650MG DOSE (2X325MG) PO PRN (01:01)
[2020-08-22 06:00] VITALS: BP 114/70
[2020-08-22] MEDS: ADVAIR HFA 115/21MCG INHALER INH SCH ×2 (07:56→19:18)
[2020-08-22] MEDS: ENOXAPARIN 30MG/0.3ML SYRINGE (J1650 PER 10MG) SC SCH (08:10)
[2020-08-22] MEDS: SERTRALINE HCL 50 MG TAB PO SCH (08:10)
[2020-08-22] MEDS: CARBAMIDE PEROXIDE 6.5% OTIC SOLN 15ML AU SCH ×2 (08:10→20:33)
[2020-08-22] MEDS: NYSTATIN 100,000 UNITS/GM TOPICAL PWD 15 GM TOP SCH ×2 (08:10→20:33)
[2020-08-22] MEDS: HumaLOG INSULIN (NovoLOG) PER UNIT SC SCH ×4 (08:11→20:21)
[2020-08-22] MEDS: LEVEMIR (INSULIN DETEMIR) 1 UNITS/0.01ML SC SCH ×2 (08:11→20:32)
[2020-08-22] MEDS: DOCUSATE SODIUM 100MG CAPSULE PO SCH ×2 (08:12→20:32)
[2020-08-22] MEDS: FERROUS SULFATE 325MG TAB PO SCH ×2 (08:12→20:32)
[2020-08-22] MEDS: bisoproloL fumarate 10 MG TAB PO SCH (08:14)
[2020-08-22] MEDS: HYDROCHLOROthiazide 6.25MG PER 1/4TAB PO SCH (08:15)
[2020-08-22] MEDS: SIMVASTATIN 20 MG TAB PO SCH (20:31)
[2020-08-22] MEDS: ramipriL 5 MG CAP PO SCH (20:32)
[2020-08-22] MEDS: GABAPENTIN 300 MG CAP PO SCH (20:32)
[2020-08-23 06:00] VITALS: BP 125/74
[2020-08-23] MEDS: HumaLOG INSULIN (NovoLOG) PER UNIT SC SCH ×4 (07:08→21:00)
[2020-08-23] MEDS: ADVAIR HFA 115/21MCG INHALER INH SCH ×2 (07:42→20:10)
[2020-08-23] MEDS: HYDROCHLOROthiazide 6.25MG PER 1/4TAB PO SCH (07:51)
[2020-08-23] MEDS: DOCUSATE SODIUM 100MG CAPSULE PO SCH ×2 (07:51→21:37)
[2020-08-23] MEDS: FERROUS SULFATE 325MG TAB PO SCH ×2 (07:51→21:37)
[2020-08-23] MEDS: ENOXAPARIN 30MG/0.3ML SYRINGE (J1650 PER 10MG) SC SCH (07:52)
[2020-08-23] MEDS: SERTRALINE HCL 50 MG TAB PO SCH (07:52)
[2020-08-23] MEDS: bisoproloL fumarate 10 MG TAB PO SCH (07:52)
[2020-08-23] MEDS: NYSTATIN 100,000 UNITS/GM TOPICAL PWD 15 GM TOP SCH ×2 (07:53→21:38)
[2020-08-23] MEDS: CARBAMIDE PEROXIDE 6.5% OTIC SOLN 15ML AU SCH ×2 (09:43→21:39)
[2020-08-23] MEDS: LEVEMIR (INSULIN DETEMIR) 1 UNITS/0.01ML SC SCH ×2 (09:43→21:38)
--- NOTE | 2020-08-23 16:55 | DSES ---
DISCHARGE SUMMARY DATE OF ADMISSION: 08/10/2020 DATE OF DISCHARGE: 08/24/2020 PRINCIPAL DIAGNOSIS: Acute encephalopathy secondary to fall with acute hypercarbic respiratory failure and hyperglycemia. HISTORY: Meka Townsend was a hospitalist patient. I did not participate in her care during her hospitalization, but she was discharged home while I was covering for them; so, I am asked to discharge the patient. She was supposed to be going to subacute rehab; but per PFS note, she is going home with a caregiver. It looks like she was admitted with altered mental status. She was found to have hypercarbia and hyperglycemia, both of which resolved during admission. Stroke was ruled out with negative MRI of the brain. Blood pressure remained under good control and asthma was not a problem for most of her hospitalization. She had a pulse oximetry done that showed variable desaturations without significant hypoxia overnight. No desaturations lower than 88%. Daughter is asking for a COVID test before discharge, so we will order that today. She had a negative COVID test on 08/10. Most recent labs are from nine days ago with sodium 142, potassium 4, BUN 13, creatinine 0.6, glucose 81. White count 9, hemoglobin 9 which remains stable during her admission, and platelets 285,000. Blood cultures were negative. DISCHARGE DISPOSITION: She already had discharge orders written for 08/14. DISCHARGE MEDICATIONS: - bisoprolol-hydrochlorothiazide 10/6.25 one daily - gabapentin 600 mg at bedtime - hydrocodone-acetaminophen 5/325 one q. six hours p.r.n. - NovoLog 16 units b.i.d. - Tresiba 96 units daily - levalbuterol inhaler two inhalations q.i.d. p.r.n. - metformin 500 mg in the morning and 1000 mg in the evening - Ramipril 10 mg at bedtime - Advair 250/50 one inhalation b.i.d. - sertraline 50 mg daily - simvastatin 20 mg daily She is to follow-up with her PCP as an outpatient and the neurologist a week after discharge. The discharge orders were put in by Dr. Cho on 08/14/2020, and I did not change any of her discharge orders, except changed it to discharge home rather than acute rehab.
[2020-08-23 18:41] LABS: RSV AMPLIFICATION NEGATIVE (NEGATIVE)
[2020-08-23] MEDS: GABAPENTIN 300 MG CAP PO SCH (21:37)
[2020-08-23] MEDS: SIMVASTATIN 20 MG TAB PO SCH (21:37)
[2020-08-23] MEDS: ramipriL 5 MG CAP PO SCH (21:41)
[2020-08-24 06:00] VITALS: BP 116/62
[2020-08-24] MEDS: HumaLOG INSULIN (NovoLOG) PER UNIT SC SCH ×2 (07:30→12:46)
[2020-08-24] MEDS: ADVAIR HFA 115/21MCG INHALER INH SCH (07:49)
[2020-08-24] MEDS: ENOXAPARIN 30MG/0.3ML SYRINGE (J1650 PER 10MG) SC SCH (09:00)
[2020-08-24] MEDS: FERROUS SULFATE 325MG TAB PO SCH (10:14)
[2020-08-24] MEDS: DOCUSATE SODIUM 100MG CAPSULE PO SCH (10:14)
[2020-08-24] MEDS: LEVEMIR (INSULIN DETEMIR) 1 UNITS/0.01ML SC SCH (10:14)
[2020-08-24] MEDS: SERTRALINE HCL 50 MG TAB PO SCH (10:14)
[2020-08-24 10:16] VITALS: BP 119/61
[2020-08-24] MEDS: bisoproloL fumarate 10 MG TAB PO SCH (10:16)
[2020-08-24] MEDS: CARBAMIDE PEROXIDE 6.5% OTIC SOLN 15ML AU SCH (10:17)
[2020-08-24] MEDS: NYSTATIN 100,000 UNITS/GM TOPICAL PWD 15 GM TOP SCH (10:17)
[2020-08-24] MEDS: HYDROCHLOROthiazide 6.25MG PER 1/4TAB PO SCH (10:19)
== END 2020-08-24 14:12 | disposition home health service (06) | DRG 638 ==
LOC: EDSEX 11:08 → EDBD 11:08 → M ED 11:08 → M ED INP 16:38 → M MSPAV 18:50
PROVIDERS: ADMIT Internal Medicine; ATTEND Family Medicine
DX: E11.65 Type 2 diabetes mellitus with hyperglycemia (principal); E87.2 Acidosis; E87.3 Alkalosis; G93.40 Encephalopathy, unspecified; I10 Essential (primary) hypertension; F03.90 Unspecified dementia, unspecified severity, without behavioral disturbance, psychotic disturbance, mood disturbance, and anxiety; E78.5 Hyperlipidemia, unspecified; E87.5 Hyperkalemia; D72.829 Elevated white blood cell count, unspecified; J45.909 Unspecified asthma, uncomplicated; Z79.4 Long term (current) use of insulin; Z79.899 Other long term (current) drug therapy; F39 Unspecified mood [affective] disorder; D50.9 Iron deficiency anemia, unspecified

== ENCOUNTER → 2020-12-31 | Outpatient (REF) | payer MEDICARE ==
[~2020-12-31] MED LIST changes: +GABA-282 PO; -GABA-843 PO
[2020-12-31 17:48] LABS: PERCENT SATURATION 10.2 % (13.2-45.0)
== END ==
LOC: M LAB REF 16:39
PROVIDERS: ATTEND Internal Medicine
DX: D64.9 Anemia, unspecified (principal)

== ENCOUNTER → 2021-01-14 | Outpatient (CLI) | payer MEDICARE ==
--- NOTE | 2021-01-14 16:15 | REP ---
INDICATION: RENAL CYST FOLLOW UP COMPARISON: 02/01/2020 TECHNIQUE: Real time gleason scale ultrasound examination using curved array transducer. FINDINGS: Right kidney measures 10.4 x 5.4 x 5.3 cm and includes increased central sinus fat along with 1.9 cm simple upper pole cyst and 6.1 cm simple lower pole cyst. No hydronephrosis, nephrolithiasis, or renal mass lesion. Left kidney measures 10.5 x 5.0 x 5.1 cm with increased central sinus fat and no significant cyst. No hydronephrosis, nephrolithiasis, or renal mass lesion. Bladder is grossly unremarkable as imaged. IMPRESSION: Stable right renal cysts. Continued evidence for chronic medical renal disease. <Electronically signed by Elbert Casas > 01/14/21 [id number]
== END ==
LOC: M RAD 15:11
PROVIDERS: ATTEND Internal Medicine
DX: N28.1 Cyst of kidney, acquired (principal)

== ENCOUNTER 2021-02-05 10:11 | Inpatient (IN) | payer MEDICARE ==
[~2021-02-05] VITALS: Ht 149.9 cm; Wt 68.2 kg
--- NOTE | 2021-02-05 11:21 | REP ---
INDICATION: Altered Mental Status COMPARISON: 08/10/2020 TECHNIQUE: Portable AP view of the chest FINDINGS: The mediastinum and cardiac silhouette are stable and within normal limits for portable technique. The lung sanches demonstrate chronic stable changes without acute consolidation, effusion, or pneumothorax. Skeletal structures are intact. IMPRESSION: No acute cardiopulmonary process appreciated. <Electronically signed by Elbert Casas > 02/05/21 111
[2021-02-05 11:22] LABS: BASO # 0.1 10^3/uL (0.0-0.2); BASO % 0.8 % (0.0-1.0); EOS # 0.1 10^3/uL (0.0-0.5); EOS % 0.6 % (0.0-3.0); HEMATOCRIT 37.4 % (36.0-47.0); HEMOGLOBIN 11.5 g/dl (12.0-15.5); LYMPH # 2.3 10^3/uL (1.5-5.0); LYMPH % 20.2 % (24.0-44.0); MEAN CORPUSCULAR HEMOGLOBIN 28.4 pg (27.0-33.0); MEAN CORPUSCULAR HGB CONC 30.7 g/dl (32.0-36.5); MEAN CORPUSCULAR VOLUME 92.3 fl (80.0-96.0); MONO # 1.4 10^3/uL (0.0-0.8); MONO % 11.8 % (2.0-8.0); NEUTROPHILS # 7.6 10^3/uL (1.5-8.5); NEUTROPHILS % 66.2 % (36.0-66.0); PLATELET COUNT, AUTOMATED 298 10^3/uL (150-450); RED BLOOD COUNT 4.05 10^6/uL (4.00-5.40); WHITE BLOOD COUNT 11.5 10^3/uL (4.0-10.0)
[2021-02-05 11:52] LABS: ALT/SGPT 24 U/L (12-78); BLOOD UREA NITROGEN 22 MG/DL (7-18); CALCIUM LEVEL 9.8 MG/DL (8.8-10.2); CARBON DIOXIDE LEVEL 23 MEQ/L (21-32); CHLORIDE LEVEL 103 MEQ/L (98-107); CK-MB VALUE MASS 1.9 NG/ML (<3.6); CPK CREATINE PHOSPHOKINASE 145 U/L (26-192); GLOMERULAR FILTRATION RATE > 60.0 (>32); GLUCOSE, FASTING 269 MG/DL (70-100); MB/CK RELATIVE INDEX 1.31 (< OR =4); POTASSIUM SERUM 4.6 MEQ/L (3.5-5.1); SODIUM LEVEL 134 MEQ/L (136-145)
[2021-02-05 11:53] LABS: ALBUMIN 3.9 GM/DL (3.2-5.2); BILIRUBIN,DIRECT 0.2 MG/DL (0.0-0.2); BILIRUBIN,TOTAL 0.8 MG/DL (0.2-1.0); TOTAL PROTEIN 8.9 GM/DL (6.4-8.2); TROPONIN I < 0.02 NG/ML (< 0.10)
--- NOTE | 2021-02-05 13:12 | REPVR ---
PROCEDURE INFORMATION: Exam: CT Head Without Contrast Exam date and time: 02/05/2021 12:42 PM Age: 80 years old Clinical indication: Altered mental status/memory loss TECHNIQUE: Imaging protocol: Computed tomography of the head without contrast. Radiation optimization: All CT scans at this facility use at least one of these dose optimization techniques: automated exposure control; mA and/or kV adjustment per patient size (includes targeted exams where dose is matched to clinical indication); or iterative reconstruction. COMPARISON: CT Head without contrast 08/10/2020 2:55 PM FINDINGS: Brain: The brain demonstrates diffuse volume loss. There is white matter hypodensity most consistent with chronic small vessel ischemic change. No visible evolving territorial infarct. No hemorrhage. Cerebral ventricles: The ventricles are enlarged in keeping with volume loss. Paranasal sinuses: Visualized sinuses are unremarkable. No fluid levels. Mastoid air cells: Visualized mastoid air cells are well aerated. Orbital cavity: Thinning of the lenses of the globes consistent with prior lens surgery. Bones/joints: Left frontal calvarial osteoma, as before. A few nonspecific subcentimeter calvarial lucencies, stable since prior, probably benign. No acute fracture seen. Soft tissues: Unremarkable. IMPRESSION: No acute intracranial abnormality seen. Electronically signed by: Teri Segura On 02/05/2021 13:12:46 PM
[2021-02-05 15:22] LABS: VENOUS BASE EXCESS -2.3 (-2.0-2.0); VENOUS HCO3 23.9 MEQ/L (23.0-27.0); VENOUS O2 SATURATION 71.9 % (60.0-80.0); VENOUS PARTIAL PRESSURE CO2 47.1 mmHg (38.0-50.0); VENOUS PARTIAL PRESSURE O2 40.3 mmHg (30.0-50.0); VENOUS PH 7.324 UNITS (7.330-7.430); VENOUS TOTAL CO2 25.4 MEQ/L (24.0-28.0)
[2021-02-05 15:56] LABS: RSV AMPLIFICATION NEGATIVE (NEGATIVE)
[2021-02-05] MEDS ORDERED: LEVALBUTEROL HFA 45MCG/ACT 15 GM INHALER INH PRN (16:00)
[2021-02-05] MEDS ORDERED: FERR325T19 PO (16:15)
[2021-02-05] MEDS ORDERED: DEXTROSE 50% 50 ML SYRINGE IV PRN (16:20)
[2021-02-05] MEDS ORDERED: GLUCAGON INJ 1MG VIAL SC PRN (16:20)
[2021-02-05] MEDS ORDERED: GLUCOSE 4GM CHEW TABLET PO PRN (16:20)
[2021-02-05] MEDS ORDERED: **hydrALAZINE HCL** 25 MG TAB PO PRN (17:00)
--- NOTE | 2021-02-05 17:23 | HPEPDOC ---
General Date of Admission Feb 05, 2021 at 16:14 Date of Service: Feb 05, 2021 Chief Complaint The patient is a 80-year-old female admitted with a reason for visit of Metabolic Encephalopathy, Uti. Source: Patient, Caregiver (Layne Martinez) History of Present Illness Patient is an 80 year old female with IDDM type 2 who presents with altered mental status. When I spoke with the patient, she was confused. She thought that she was at the hospital for her diabetes. She denies fever, chest pain, dyspnea, abdominal pain, or dysuria. I spoke with the patient's acute care physical therapist, Layne Martinez. Patient lives independently alone and was last seen normal on Thursday. Her niece spoke with her on Thursday/Thursday as well, and she was normal at that time. Yesterday, the grounds maintenance supervisor saw the patient and was concerned that she was confused. call worker ask social work nurse and acute care physical therapist, Layne Martinez, to check in on patient. Patient was not acting like herself. They checked her blood sugar which was mildly elevated in the 200s. Patient did not want to go to the ER and decided to wait to see how she did the next day. The next day, she was still confused and she was taken to the ER. While in the ED, vital signs are stable. Mild elevation of WBC at 11.5. No fever, but UA suggestive of UTI. Patient will be admitted for metabolic encephalopathy secondary to UTI. Home Medications Scheduled Bisoprolol/Hydrochlorothiazide (Bisoprolol-Hctz 10-6.25 mg Tab) 1 Each Tablet, 1 TAB PO DAILY, (Reported) Ferrous Sulfate (Ferosul) 325 Mg Tablet, 325 MG PO DAILY, (Reported) Gabapentin (Gabapentin) 300 Mg Capsule, 600 MG PO QHS, (Reported) Insulin Aspart (Novolog Flexpen) 100 Unit/1 Ml Insuln.pen, 16 UNITS SQ BID, (Reported) BREAKFAST AND DINNER Insulin Degludec (Tresiba Flextouch U-200) 200 Unit/1 Ml Insuln.pen, 96 UNITS SQ DAILY, (Reported) Insulin Human Lispro (Novolog) 100 Unit/1 Ml Vial, 18 UNITS SC DAILY, (Reported) LUNCH Metformin HCl (Metformin HCl) 500 Mg Tablet, 500 MG PO DAILY, (Reported) Metformin HCl (Metformin HCl) 500 Mg Tablet, 1,000 MG PO QPM, (Reported) WITH DINNER Ramipril (Ramipril) 10 Mg Capsule, 10 MG PO QHS, (Reported) Salmeterol/Fluticasone (Advair 250-50 Diskus) 1 Each Blst.w.dev, 1 PUFF INH BID, (Reported) Sertraline HCl (Sertraline HCl) 50 Mg Tablet, 50 MG PO DAILY, (Reported) Simvastatin (Simvastatin) 20 Mg Tablet, 20 MG PO QHS, (Reported) Scheduled PRN Levalbuterol Tartrate (Levalbuterol Tartrate Hfa) 15 Gm Hfa.aer.ad, 2 PUFFS INH QID PRN for SHORTNESS OF BREATH, (Reported) Allergies Coded Allergies: aspirin (Verified Allergy, Unknown, 09/07/19) codeine (Verified Adverse Reaction, Mild, VOMITING, 08/06/20) Past Medical History Medical History 1. Poorly controlled IDDM type 2 2. Hypertension 3. Hyperlipidemia 4. Sciatica on gabapentin Surgical History 1. Tubal ligation 2. D&C x5 3. Pilonidal cyst x9 Family History Patient reports no knowledge of parent's past medical history. From chart, mother has history of cancer Social History * Smoker: former Smoker Alcohol: Denies Drugs: denies A-FIB/CHADSVASC A-FIB History Current/History of A-Fib/PAF?: No Review of Systems Constitutional: Denies: Chills, Fever Eyes: Denies: Vision change ENT: Denies: Sore Throat Skin: Denies: Rash Pulmonary: Denies: Dyspnea, Cough Cardiovascular: Denies: Chest Pain Gastrointestinal: Denies: Abdominal Pain, Diarrhea Hematologic: Denies: Bruising Neurological: Denies: Weakness, Numbness Psych: Denies: Anxiety, Depression Physical Examination General Exam: Positive: Alert, Cooperative, Other (mild rigor/tremor) Eye Exam: Positive: EOMI; Negative: Sclera icteric ENT Exam: Positive: Atraumatic Neck Exam: Positive: Supple Chest Exam: Positive: Clear to auscultation Heart Exam: Positive: Tachycardic, Regular Rhythm Abdomen Exam: Positive: Normal bowel sounds, Soft; Negative: Tenderness Extremity Exam: Positive: Edema (bilateral pitting edema) Neuro Exam: Positive: Cranial Nerves 3-12 NL Psych Exam: Negative: Memory Intact, Oriented x 3 (Does not know year) Vital Signs Vital Signs Date Time Temp Pulse Resp B/P (MAP) Pulse Ox O2 Delivery O2 Flow Rate FiO2 02/05/21 14:40 96.8 99 25 187/83 (117) 97 02/05/21 10:24 Room Air Laboratory Data Labs 24H Laboratory Tests 2 02/05/21 10:33: Immature Granulocyte % (Auto) 0.4, Neutrophils (%) (Auto) 66.2H, Lymphocytes (%) (Auto) 20.2L, Monocytes (%) (Auto) 11.8H, Eosinophils (%) (Auto) 0.6, Basophils (%) (Auto) 0.8, Neutrophils # (Auto) 7.6, Lymphocytes # (Auto) 2.3, Monocytes # (Auto) 1.4H, Eosinophils # (Auto) 0.1, Basophils # (Auto) 0.1, Nucleated Red Blood Cells % (auto) 0.0, Urine Color YELLOW, Urine Appearance TURBIDH, Urine pH 5.0, Urine Specific [place] 1.014, Urine Protein 3+H, Urine Glucose (UA) 3+H, Urine Ketones 1+H, Urine Blood 2+H, Urine Nitrite NEGATIVE, Urine Bilirubin NEGATIVE, Urine Urobilinogen 0.2, Urine Leukocyte Esterase 3+H, Urine WBC (Auto) TNTCH, Urine RBC (Auto) 71H, Urine Hyaline Casts (Auto) 0, Urine Bacteria (Auto) NEGATIVE, Urine Squamous Epithelial Cells 3, Urine Yeast-Like Cells (Auto) LARGEH, Urine Sperm (Auto) , Anion Gap 8, Glomerular Filtration Rate > 60.0, Ca lcium Level 9.8, Total Bilirubin 0.8, Direct Bilirubin 0.2, Aspartate Amino Transf (AST/SGOT) 21, Alanine Aminotransferase (ALT/SGPT) 24, Alkaline Phosphatase 148H, Total Creatine Kinase 145, Creatine Kinase MB 1.9, Creatine Kinase MB Relative Index 1.31, Troponin I < 0.02, Total Protein 8.9H, Albumin 3.9, Albumin/Globulin Ratio 0.8L, Thyroid Stimulating Hormone (TSH) 2.130 02/05/21 10:59: Lactic Acid Level 1.5 02/05/21 11:13: Bedside Glucose (Misc Panel) 274H 02/05/21 14:43: Coronavirus (COVID-19)(PCR) NEGATIVE, Influenza Type A (RT-PCR) NEGATIVE, Influenza Type B (RT-PCR) NEGATIVE, Respiratory Syncytial Virus (PCR) NEGATIVE 02/05/21 15:08: Blood Gas Bicarbonate Standard 22.0, Venous Blood pH 7.324L, Venous Blood Partial Pressure CO2 47.1, Venous Blood Partial Pressure O2 40.3, Venous Blood Total Carbon Dioxide 25.4, Venous Blood HCO3 23.9, Venous Blood Oxygen Saturation 71.9, Venous Blood Base Excess -2.3L, Ammonia 13 CBC/BMP Laboratory Tests 02/05/21 10:33 Microbiology Microbiology 02/05/21 Urine Culture, Received Pending 02/05/21 Blood Culture, Received Pending Assessment/Plan Patient is an 80 year old female with IDDM type 2 who presents with altered mental status. She was found to have metabolic encephalopathy 2/2 UTI. Patient was last seen normal on Thursday and first noted to be confused on Thursday. UA de monstrates pyuria. Urine culture and blood cultures pending. Patient will be empirically treated with ceftriaxone. Plan / VTE VTE Prophylaxis Ordered?: Yes Plan Plan 1. Metabolic encephalopathy 2/2 UTI -Patient lives independently alone -Niece last spoke to her on Thu/Thu and at that time she was normal -Will empirically treat UTI with ceftriaxone -Pending urine culture and blood culture results 2. UTI -UA demonstrates pyuria -Ceftriaxone day 1 -Pending urine culture results 3. IDDM type 2 -Will start basal insulin at 40u and titrate upwards as needed -Carbohydrate consistent diet -Sliding scale insulin 4. Neuropathy -Continue gabapentin 5. Hypertension -Continue Ramipril -PRN hydralazine 6. Mood disorder -Continue sertraline 7. Dyslipidemia -Continue simvastatin 8. Asthma -Continue Advair and PRN Xopenex 9. DVT ppx -Lovenox Disposition: Pending clinical improvement and urine culture results CHU MANRIQUEZ DO Feb 05, 2021 17:23
[2021-02-05] MEDS: cefTRIAXone SOD 1 GM in D5W MINI-BAG PLUS 50 ML IV SCH (17:39)
[2021-02-05 17:55] VITALS: BP 165/84
[2021-02-05] MEDS: HumaLOG INSULIN (NovoLOG) PER UNIT SC SCH ×2 (18:39→21:00)
[2021-02-05] MEDS: LACTOBACILLUS ACIDOPHILUS CAP (BACID) PO SCH (18:39)
[2021-02-05] MEDS: ADVAIR HFA 115/21MCG INHALER INH SCH (20:19)
[2021-02-05] MEDS: GABAPENTIN 300 MG CAP PO SCH (20:41)
[2021-02-05] MEDS: SIMVASTATIN 20 MG TAB PO SCH (20:41)
[2021-02-05] MEDS: ACETAMINOPHEN TAB 650MG DOSE (2X325MG) PO PRN (20:41)
[2021-02-05] MEDS: ramipriL 5 MG CAP PO SCH (20:50)
--- NOTE | 2021-02-05 21:02 | ECGEPIP ---
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
[2021-02-05 22:00] VITALS: BP 142/81
[2021-02-06 06:00] VITALS: BP 119/74
[2021-02-06] MEDS: ADVAIR HFA 115/21MCG INHALER INH SCH ×2 (07:30→19:56)
[2021-02-06 08:11] LABS: HEMATOCRIT 35.5 % (36.0-47.0); HEMOGLOBIN 10.8 g/dl (12.0-15.5); MEAN CORPUSCULAR HEMOGLOBIN 28.1 pg (27.0-33.0); MEAN CORPUSCULAR HGB CONC 30.4 g/dl (32.0-36.5); MEAN CORPUSCULAR VOLUME 92.4 fl (80.0-96.0); PLATELET COUNT, AUTOMATED 267 10^3/uL (150-450); RED BLOOD COUNT 3.84 10^6/uL (4.00-5.40); WHITE BLOOD COUNT 10.4 10^3/uL (4.0-10.0)
[2021-02-06 08:30] LABS: CALCIUM LEVEL 9.1 MG/DL (8.8-10.2); CREATININE FOR GFR 1.15 MG/DL (0.55-1.30); GLOMERULAR FILTRATION RATE 48.1 (>32); POTASSIUM SERUM 4.2 MEQ/L (3.5-5.1)
[2021-02-06] MEDS ORDERED: LEVEMIR (INSULIN DETEMIR) 1 UNITS/0.01ML SC SCH (09:00)
[2021-02-06] MEDS: HumaLOG INSULIN (NovoLOG) PER UNIT SC SCH ×4 (09:47→20:11)
[2021-02-06] MEDS: ENOXAPARIN 40MG/0.4ML SYRINGE (J1650 PER 10MG) SC SCH (09:48)
[2021-02-06] MEDS: SERTRALINE HCL 50 MG TAB PO SCH (09:48)
[2021-02-06] MEDS: LACTOBACILLUS ACIDOPHILUS CAP (BACID) PO SCH ×2 (09:48→18:43)
[2021-02-06 14:00] VITALS: BP 108/52
--- NOTE | 2021-02-06 16:23 | IPNPDOC ---
Subjective Date Seen The patient was seen on 02/06/21. Subjective Chief Complaint/HPI Patient is an 80 year old female with IDDM type 2 who presents with altered mental status. This morning, she denies any chest pain or dyspnea. She reports that is feels uncomfortable when she urinates. She appears improved compared to last night and her rigors not as apparent. Urine culture returned with yeast like organisms which may be a contaminant she she is clinical improving. Will continue with IV antibiotics at this time. Objective Physical Examination General Exam: Positive: Alert, Cooperative Eye Exam: Positive: EOMI; Negative: Sclera icteric ENT Exam: Positive: Atraumatic Neck Exam: Positive: Supple Chest Exam: Positive: Clear to auscultation Heart Exam: Positive: Tachycardic, Regular Rhythm Abdomen Exam: Positive: Normal bowel sounds, Soft; Negative: Tenderness Extremity Exam: Positive: Edema (bilateral pitting edema) Neuro Exam: Positive: Cranial Nerves 3-12 NL Assessment /Plan Assessment Patient is an 80 year old female with IDDM type 2 who presents with altered mental status. She was found to have metabolic encephalopathy 2/2 UTI. Patient was last seen normal on Thursday and first noted to be confused on Thursday. UA demonstrates pyuria. Urine culture grew yeast like organisms which may be a contaminant as patient is clinically improving. Blood cultures pending. Patient will be empirically treated with ceftriaxone. Plan/VTE VTE Prophylaxis Ordered?: Yes Plan 1. Metabolic encephalopathy 2/2 UTI -Patient lives independently alone -Niece last spoke to her on Thu/Thu and at that time she was normal -Will empirically treat UTI with ceftriaxone -Pending blood culture results 2. UTI -UA demonstrates pyuria -Ceftriaxone day 2 3. IDDM type 2 -Will start basal insulin at 40u and titrate upwards as needed. Increased basal insulin to 50u today -Carbohydrate consistent diet -Sliding scale insulin 4. Neuropathy -Continue gabapentin 5. Hypertension -Continue Ramipril -PRN hydralazine 6. Mood disorder -Continue sertraline 7. Dyslipidemia -Continue simvastatin 8. Asthma -Continue Advair and PRN Xopenex 9. DVT ppx -Lovenox Disposition: Pending clinical improvement VS, I&O, 24H, Fishbone Vital Signs/I&O Vital Signs Date Time Temp Pulse Resp B/P (MAP) Pulse Ox O2 Delivery O2 Flow Rate FiO2 02/06/21 14:00 97.8 108 19 108/52 (70) 95 Room Air I&O- Last 24 Hours up to 6 AM 02/06/21 06:00 Intake Total 453 ml Balance 453 ml Laboratory Data 24H LABS Laboratory Tests 2 02/05/21 18:08: Bedside Glucose (Misc Panel) 248H 02/05/21 20:31: Bedside Glucose (Misc Panel) 171H 02/06/21 06:12: Bedside Glucose (Misc Panel) 312H 02/06/21 07:54: Nucleated Red Blood Cells % (auto) 0.0, Anion Gap 6L, Glomerular Filtration Rate 48.1, Calcium Level 9.1 02/06/21 11:40: Bedside Glucose (Misc Panel) 251H CBC/BMP Laboratory Tests 02/06/21 07:54 Microbiology Microbiology 02/05/21 Blood Culture, Received Pending 02/05/21 Urine Culture - Final, Complete Yeast Like Organism 02/05/21 Blood Culture - Preliminary, Resulted No growth after 24 hours . All specim... CHU MANRIQUEZ DO Feb 06, 2021 16:23
[2021-02-06] MEDS: cefTRIAXone SOD 1 GM in D5W MINI-BAG PLUS 50 ML IV SCH (18:43)
[2021-02-06 20:02] VITALS: BP 135/82
[2021-02-06 20:11] VITALS: BP 135/82
[2021-02-06] MEDS: SIMVASTATIN 20 MG TAB PO SCH (20:11)
[2021-02-06] MEDS: ramipriL 5 MG CAP PO SCH (20:11)
[2021-02-06] MEDS: GABAPENTIN 300 MG CAP PO SCH (20:12)
[2021-02-06] MEDS: ACETAMINOPHEN TAB 650MG DOSE (2X325MG) PO PRN (20:12)
[2021-02-07 06:29] VITALS: BP 126/69
[2021-02-07 07:07] LABS: HEMOGLOBIN 10.3 g/dl (12.0-15.5); MEAN CORPUSCULAR HGB CONC 30.3 g/dl (32.0-36.5); MEAN CORPUSCULAR VOLUME 92.4 fl (80.0-96.0); PLATELET COUNT, AUTOMATED 271 10^3/uL (150-450); RED BLOOD COUNT 3.68 10^6/uL (4.00-5.40); WHITE BLOOD COUNT 10.9 10^3/uL (4.0-10.0)
[2021-02-07] MEDS: ADVAIR HFA 115/21MCG INHALER INH SCH ×2 (07:13→19:49)
[2021-02-07 07:34] LABS: C REACTIVE PROTEIN QUANTITATIV 7.4 MG/DL (0.00-0.30); CALCIUM LEVEL 8.8 MG/DL (8.8-10.2); CREATININE FOR GFR 1.23 MG/DL (0.55-1.30); GLOMERULAR FILTRATION RATE 44.5 (>32); POTASSIUM SERUM 4.3 MEQ/L (3.5-5.1)
[2021-02-07] MEDS: ACETAMINOPHEN TAB 650MG DOSE (2X325MG) PO PRN ×2 (07:45→20:50)
[2021-02-07 08:43] LABS: ERYTHROCYTE SEDIMENTATION RATE 70 mm/hr (0-30)
[2021-02-07] MEDS ORDERED: LEVEMIR (INSULIN DETEMIR) 1 UNITS/0.01ML SC SCH (09:00)
[2021-02-07] MEDS: LACTOBACILLUS ACIDOPHILUS CAP (BACID) PO SCH ×2 (09:06→17:29)
[2021-02-07] MEDS: ENOXAPARIN 40MG/0.4ML SYRINGE (J1650 PER 10MG) SC SCH (09:06)
[2021-02-07] MEDS: SERTRALINE HCL 50 MG TAB PO SCH (09:06)
[2021-02-07] MEDS: HumaLOG INSULIN (NovoLOG) PER UNIT SC SCH ×4 (09:07→20:50)
--- NOTE | 2021-02-07 10:25 | REP ---
INDICATION: MARY COMPARISON: 01/14/2021 TECHNIQUE: Real time gleason scale ultrasound examination using curved array transducer. FINDINGS: Right kidney measures 10.4 x 5.2 x 5.4 cm and includes 2.0 cm upper pole cyst and 5.8 cm lower pole cyst without hydronephrosis, nephrolithiasis, or obvious mass lesion. Left kidney measures 10.9 x 5.1 x 5.2 cm and includes 1.5 cm lower pole cyst without hydronephrosis, nephrolithiasis, or obvious mass lesion. Bladder is partially collapsed. IMPRESSION: Renal cysts. No hydronephrosis. <Electronically signed by Elbert Casas > 02/07/21 1021
[2021-02-07 14:00] VITALS: BP 96/57
[2021-02-07] MEDS: cefTRIAXone SOD 1 GM in D5W MINI-BAG PLUS 50 ML IV SCH (17:28)
--- NOTE | 2021-02-07 18:45 | IPNPDOC ---
Subjective Date Seen The patient was seen on 02/07/21. Subjective Chief Complaint/HPI Patient is an 80 year old female with IDDM type 2 who presents with altered mental status. This morning, she denied any chest pain or dyspnea. Objective Physical Examination General Exam: Positive: Alert, Cooperative Eye Exam: Positive: EOMI; Negative: Sclera icteric ENT Exam: Positive: Atraumatic Neck Exam: Positive: Supple Chest Exam: Positive: Clear to auscultation Heart Exam: Positive: Tachycardic, Regular Rhythm Abdomen Exam: Positive: Normal bowel sounds, Soft; Negative: Tenderness Extremity Exam: Positive: Edema (bilateral pitting edema) Neuro Exam: Positive: Cranial Nerves 3-12 NL Assessment /Plan Assessment Patient is an 80 year old female with IDDM type 2 who presents with altered mental status. She was found to have metabolic encephalopathy 2/2 UTI. Patient was last seen normal on Thursday and first noted to be confused on Thursday. UA demonstrates pyuria. Urine culture grew yeast like organisms which may be a contaminant as patient is clinically improving. Blood cultures pending. Patient will be empirically treated with ceftriaxone. Otherwise, patient's creatinine has starting to increase. Will hold ramipril. Plan/VTE VTE Prophylaxis Ordered?: Yes Plan 1. Metabolic encephalopathy 2/2 UTI -Patient lives independently alone -Niece last spoke to her on Thu/Thu and at that time she was normal -Will empirically treat UTI with ceftriaxone -Pending blood culture results 2. UTI -UA demonstrates pyuria -Ceftriaxone day 3 3. IDDM type 2 -Will start basal insulin at 40u and titrate upwards as needed. Increased basal insulin to 60u today -Carbohydrate consistent diet -Sliding scale insulin 4. Neuropathy -Continue gabapentin 5. Hypertension -Continue Ramipril -PRN hydralazine 6. Mood disorder -Continue sertraline 7. Dyslipidemia -Continue simvastatin 8. Asthma -Continue Advair and PRN Xopenex 9. DVT ppx -Lovenox Disposition: Pending clinical improvement VS, I&O, 24H, Fishbone Vital Signs/I&O Vital Signs Date Time Temp Pulse Resp B/P (MAP) Pulse Ox O2 Delivery O2 Flow Rate FiO2 02/07/21 14:00 98.0 90 12 96/57 (70) 93 Room Air I&O- Last 24 Hours up to 6 AM 02/07/21 06:00 Intake Total 1070 ml Balance 1070 ml Laboratory Data 24H LABS Laboratory Tests 2 02/06/21 20:08: Bedside Glucose (Misc Panel) 289H 02/07/21 06:47: Nucleated Red Blood Cells % (auto) 0.0, Erythrocyte Sedimentation Rate 70H, Anion Gap 6L, Glomerular Filtration Rate 44.5, Calcium Level 8.8, C-Reactive Protein, Quantitative 7.40H 02/07/21 11:27: Bedside Glucose (Misc Panel) 333H 02/07/21 16:29: Bedside Glucose (Misc Panel) 204H CBC/BMP Laboratory Tests 02/07/21 06:47 Microbiology Microbiology 02/05/21 Blood Culture - Preliminary, Resulted No Growth after 48 hours. All Specime... 02/05/21 Urine Culture - Final, Complete Yeast Like Organism 02/05/21 Blood Culture - Preliminary, Resulted No Growth after 48 hours. All Specime... CHU MANRIQUEZ DO Feb 07, 2021 18:45
[2021-02-07 19:59] VITALS: BP 143/80
[2021-02-07 20:35] VITALS: BP 124/64
[2021-02-07] MEDS: GABAPENTIN 300 MG CAP PO SCH (20:50)
[2021-02-07] MEDS: SIMVASTATIN 20 MG TAB PO SCH (20:50)
[2021-02-08 05:30] VITALS: BP 124/73
[2021-02-08 07:15] LABS: HEMATOCRIT 32.6 % (36.0-47.0); HEMOGLOBIN 9.9 g/dl (12.0-15.5); MEAN CORPUSCULAR HGB CONC 30.4 g/dl (32.0-36.5); MEAN CORPUSCULAR VOLUME 92.4 fl (80.0-96.0); PLATELET COUNT, AUTOMATED 255 10^3/uL (150-450); RED BLOOD COUNT 3.53 10^6/uL (4.00-5.40); WHITE BLOOD COUNT 10.4 10^3/uL (4.0-10.0)
[2021-02-08] MEDS: ADVAIR HFA 115/21MCG INHALER INH SCH ×2 (07:23→19:53)
[2021-02-08 07:47] LABS: C REACTIVE PROTEIN QUANTITATIV 8.27 MG/DL (0.00-0.30); CALCIUM LEVEL 8.6 MG/DL (8.8-10.2); CREATININE FOR GFR 1.04 MG/DL (0.55-1.30); POTASSIUM SERUM 4.1 MEQ/L (3.5-5.1)
[2021-02-08 07:54] LABS: ERYTHROCYTE SEDIMENTATION RATE 68 mm/hr (0-30)
[2021-02-08] MEDS: ENOXAPARIN 40MG/0.4ML SYRINGE (J1650 PER 10MG) SC SCH (09:17)
[2021-02-08] MEDS: LEVEMIR (INSULIN DETEMIR) 1 UNITS/0.01ML SC SCH (09:17)
[2021-02-08] MEDS: HumaLOG INSULIN (NovoLOG) PER UNIT SC SCH ×4 (09:18→21:00)
[2021-02-08] MEDS: LACTOBACILLUS ACIDOPHILUS CAP (BACID) PO SCH ×2 (09:18→17:49)
[2021-02-08] MEDS: SERTRALINE HCL 50 MG TAB PO SCH (09:18)
[2021-02-08] MEDS: ACETAMINOPHEN TAB 650MG DOSE (2X325MG) PO PRN ×2 (09:22→20:12)
[2021-02-08 14:00] VITALS: BP 133/74
--- NOTE | 2021-02-08 14:21 | IPNPDOC ---
Subjective Date Seen The patient was seen on 02/08/21. Subjective Chief Complaint/HPI Patient is an 80 year old female with IDDM type 2 who presents with altered mental status. This morning, she denies any chest pain or dyspnea. She will need more physical therapy to reach appropriate level of independence. Patient will need rehab. Objective Physical Examination General Exam: Positive: Alert, Cooperative Eye Exam: Positive: EOMI; Negative: Sclera icteric ENT Exam: Positive: Atraumatic Neck Exam: Positive: Supple Chest Exam: Positive: Clear to auscultation Heart Exam: Positive: Tachycardic, Regular Rhythm Abdomen Exam: Positive: Normal bowel sounds, Soft; Negative: Tenderness Extremity Exam: Positive: Edema (bilateral pitting edema) Neuro Exam: Positive: Cranial Nerves 3-12 NL Assessment /Plan Assessment Patient is an 80 year old female with IDDM type 2 who presents with altered mental status. She was found to have metabolic encephalopathy 2/2 UTI. Patient was last seen normal on Thursday and first noted to be confused on Thursday. UA demonstrates pyuria. Urine culture grew yeast like organisms which may be a contaminant as patient is clinically improving. Blood cultures pending. Patient will be empirically treated with ceftriaxone. Otherwise, patient's creatinine has starting to increase. Will hold ramipril. After holding ramipril, renal function improved. Patient will need rehab to reach appropriate level of independence. Plan/VTE VTE Prophylaxis Ordered?: Yes Plan 1. Metabolic encephalopathy 2/2 UTI -Patient lives independently alone -Niece last spoke to her on Thu/Thu and at that time she was normal -Will empirically treat UTI with ceftriaxone -Pending blood culture results 2. UTI -UA demonstrates pyuria -Ceftriaxone day 4 3. IDDM type 2 -Continue basal insulin at 60u -Carbohydrate consistent diet -Sliding scale insulin 4. Neuropathy -Continue gabapentin 5. Hypertension -Continue Ramipril -PRN hydralazine 6. Mood disorder -Continue sertraline 7. Dyslipidemia -Continue simvastatin 8. Asthma -Continue Advair and PRN Xopenex 9. DVT ppx -Lovenox Disposition: Patient will need rehab VS, I&O, 24H, Fishbone Vital Signs/I&O Vital Signs Date Time Temp Pulse Resp B/P (MAP) Pulse Ox O2 Delivery O2 Flow Rate FiO2 02/08/21 05:30 98.9 107 20 124/73 (90) 97 Room Air I&O- Last 24 Hours up to 6 AM 02/08/21 06:00 Intake Total 2000 ml Output Total 0 ml Balance 2000 ml Laboratory Data 24H LABS Laboratory Tests 2 02/07/21 16:29: Bedside Glucose (Misc Panel) 204H 02/07/21 20:04: Bedside Glucose (Misc Panel) 265H 02/08/21 06:37: Nucleated Red Blood Cells % (auto) 0.0, Erythrocyte Sedimentation Rate 68H, Anion Gap 5L, Glomerular Filtration Rate 54.0, Calcium Level 8.6L, C-Reactive Protein, Quantitative 8.27H 02/08/21 11:41: Bedside Glucose (Misc Panel) 310H CBC/BMP Laboratory Tests 02/08/21 06:37 Microbiology Microbiology 02/05/21 Blood Culture - Preliminary, Resulted No Growth after 48 hours. All Specime... 02/05/21 Urine Culture - Final, Complete Yeast Like Organism 02/05/21 Blood Culture - Preliminary, Resulted No Growth after 72 hours. All specime... CHU MANRIQUEZ DO Feb 08, 2021 14:21
[2021-02-08] MEDS: cefTRIAXone SOD 1 GM in D5W MINI-BAG PLUS 50 ML IV SCH (17:49)
[2021-02-08 19:57] VITALS: BP 145/77
[2021-02-08] MEDS: GABAPENTIN 300 MG CAP PO SCH (20:12)
[2021-02-08] MEDS: SIMVASTATIN 20 MG TAB PO SCH (20:12)
[2021-02-09 06:08] LABS: HEMATOCRIT 32.3 % (36.0-47.0); HEMOGLOBIN 9.9 g/dl (12.0-15.5); MEAN CORPUSCULAR HGB CONC 30.7 g/dl (32.0-36.5); MEAN CORPUSCULAR VOLUME 91.5 fl (80.0-96.0); PLATELET COUNT, AUTOMATED 238 10^3/uL (150-450); RED BLOOD COUNT 3.53 10^6/uL (4.00-5.40); WHITE BLOOD COUNT 9.5 10^3/uL (4.0-10.0)
[2021-02-09 06:19] VITALS: BP 122/74
[2021-02-09 06:34] LABS: BLOOD UREA NITROGEN 28 MG/DL (7-18); CALCIUM LEVEL 8.7 MG/DL (8.8-10.2); CARBON DIOXIDE LEVEL 27 MEQ/L (21-32); CHLORIDE LEVEL 106 MEQ/L (98-107); CREATININE FOR GFR 0.76 MG/DL (0.55-1.30); GLOMERULAR FILTRATION RATE > 60.0 (>32); GLUCOSE, FASTING 233 MG/DL (70-100); POTASSIUM SERUM 4.5 MEQ/L (3.5-5.1); SODIUM LEVEL 136 MEQ/L (136-145)
[2021-02-09] MEDS: ADVAIR HFA 115/21MCG INHALER INH SCH ×2 (08:17→20:05)
[2021-02-09] MEDS: LEVEMIR (INSULIN DETEMIR) 1 UNITS/0.01ML SC SCH (09:00)
[2021-02-09] MEDS: LACTOBACILLUS ACIDOPHILUS CAP (BACID) PO SCH ×2 (09:01→17:19)
[2021-02-09] MEDS: ENOXAPARIN 40MG/0.4ML SYRINGE (J1650 PER 10MG) SC SCH (09:01)
[2021-02-09] MEDS: SERTRALINE HCL 50 MG TAB PO SCH (09:01)
[2021-02-09] MEDS: HumaLOG INSULIN (NovoLOG) PER UNIT SC SCH ×4 (09:01→20:32)
--- NOTE | 2021-02-09 11:26 | IPNPDOC ---
Subjective Date Seen The patient was seen on 02/09/21. Subjective Chief Complaint/HPI Patient is an 80 year old female with IDDM type 2 who presents with altered mental status. This morning, she denies any chest pain or dyspnea. She had bladder scan yesterday, pending results. Objective Physical Examination General Exam: Positive: Alert, Cooperative Eye Exam: Positive: EOMI; Negative: Sclera icteric ENT Exam: Positive: Atraumatic Neck Exam: Positive: Supple Chest Exam: Positive: Clear to auscultation Heart Exam: Positive: Tachycardic, Regular Rhythm Abdomen Exam: Positive: Normal bowel sounds, Soft; Negative: Tenderness Extremity Exam: Positive: Edema (bilateral pitting edema) Neuro Exam: Positive: Cranial Nerves 3-12 NL Assessment /Plan Assessment Patient is an 80 year old female with IDDM type 2 who presents with altered mental status. She was found to have metabolic encephalopathy 2/2 UTI. Patient was last seen normal on Thursday and first noted to be confused on Thursday. UA demonstrates pyuria. Urine culture grew yeast like organisms which may be a con taminant as patient is clinically improving. Blood cultures pending. Patient will be empirically treated with ceftriaxone. Otherwise, patient's creatinine has starting to increase. Will hold ramipril. After holding ramipril, renal function improved. Plan/VTE VTE Prophylaxis Ordered?: Yes Plan 1. Metabolic encephalopathy 2/2 UTI -Patient lives independently alone -Niece last spoke to her on Thu/Thu and at that time she was normal -Will empirically treat UTI with ceftriaxone -Pending blood culture results 2. UTI -UA demonstrates pyuria -Ceftriaxone day 5 3. IDDM type 2 -Continue basal insulin at 60u -Carbohydrate consistent diet -Sliding scale insulin 4. Neuropathy -Continue gabapentin 5. Hypertension -Continue Ramipril -PRN hydralazine 6. Mood disorder -Continue sertraline 7. Dyslipidemia -Continue simvastatin 8. Asthma -Continue Advair and PRN Xopenex 9. DVT ppx -Lovenox Disposition: Patient may need rehab. VS, I&O, 24H, Fishbone Vital Signs/I&O Vital Signs Date Time Temp Pulse Resp B/P (MAP) Pulse Ox O2 Delivery O2 Flow Rate FiO2 02/09/21 06:19 99.0 101 20 122/74 (90) 97 Room Air I&O- Last 24 Hours up to 6 AM 02/09/21 05:59 Intake Total 1140 ml Output Total 0 ml Balance 1140 ml Laboratory Data 24H LABS Laboratory Tests 2 02/08/21 11:41: Bedside Glucose (Misc Panel) 310H 02/08/21 17:16: Bedside Glucose (Misc Panel) 209H 02/08/21 19:59: Bedside Glucose (Misc Panel) 176H 02/09/21 05:52: Nucleated Red Blood Cells % (auto) 0.0, Anion Gap 3L, Glomerular Filtration Rate > 60.0, Calcium Level 8.7L 02/09/21 06:22: Bedside Glucose (Misc Panel) 220H CBC/BMP Laboratory Tests 02/09/21 05:52 Microbiology Microbiology 02/05/21 Blood Culture - Preliminary, Resulted No Growth after 72 hours. All specime... 02/05/21 Urine Culture - Final, Complete Yeast Like Organism 02/05/21 Blood Culture - Preliminary, Resulted No Growth after 72 hours. All specime... CHU MANRIQUEZ DO Feb 09, 2021 11:26
[2021-02-09 14:00] VITALS: BP 125/74
[2021-02-09] MEDS: cefTRIAXone SOD 1 GM in D5W MINI-BAG PLUS 50 ML IV SCH (17:20)
[2021-02-09] MEDS: GABAPENTIN 300 MG CAP PO SCH (20:30)
[2021-02-09] MEDS: SIMVASTATIN 20 MG TAB PO SCH (20:30)
[2021-02-09] MEDS: ACETAMINOPHEN TAB 650MG DOSE (2X325MG) PO PRN (20:30)
[2021-02-09 22:00] VITALS: BP 164/70
[2021-02-10 06:00] VITALS: BP 137/72
[2021-02-10 06:18] LABS: HEMATOCRIT 30.9 % (36.0-47.0); HEMOGLOBIN 9.6 g/dl (12.0-15.5); MEAN CORPUSCULAR HEMOGLOBIN 28.2 pg (27.0-33.0); MEAN CORPUSCULAR HGB CONC 31.1 g/dl (32.0-36.5); MEAN CORPUSCULAR VOLUME 90.9 fl (80.0-96.0); PLATELET COUNT, AUTOMATED 244 10^3/uL (150-450); WHITE BLOOD COUNT 7.8 10^3/uL (4.0-10.0)
[2021-02-10 06:34] LABS: BLOOD UREA NITROGEN 22 MG/DL (7-18); C REACTIVE PROTEIN QUANTITATIV 5.61 MG/DL (0.00-0.30); CALCIUM LEVEL 8.8 MG/DL (8.8-10.2); CARBON DIOXIDE LEVEL 27 MEQ/L (21-32); CHLORIDE LEVEL 107 MEQ/L (98-107); CREATININE FOR GFR 0.84 MG/DL (0.55-1.30); GLOMERULAR FILTRATION RATE > 60.0 (>32); GLUCOSE, FASTING 216 MG/DL (70-100); POTASSIUM SERUM 4.4 MEQ/L (3.5-5.1); SODIUM LEVEL 137 MEQ/L (136-145)
[2021-02-10 06:36] LABS: ERYTHROCYTE SEDIMENTATION RATE 70 mm/hr (0-30)
[2021-02-10] MEDS: ADVAIR HFA 115/21MCG INHALER INH SCH ×2 (07:39→20:47)
--- NOTE | 2021-02-10 08:23 | REP ---
INDICATION: Yeast in urine, looking for fungal ball COMPARISON: None TECHNIQUE: Real time B-mode ultrasound examination using curved array transducer. FINDINGS: Bladder is normal in appearance without wall thickening or mass lesion. Bilateral ureteral jets are identified. Prevoid bladder measures 6.0 x 8.2 x 4.6 cm (148 cc). IMPRESSION: 1. Normal bladder ultrasound. <Electronically signed by Elbert Casas > 02/10/21 5600
[2021-02-10] MEDS: ENOXAPARIN 40MG/0.4ML SYRINGE (J1650 PER 10MG) SC SCH (09:39)
[2021-02-10] MEDS: LEVEMIR (INSULIN DETEMIR) 1 UNITS/0.01ML SC SCH (09:39)
[2021-02-10] MEDS: LACTOBACILLUS ACIDOPHILUS CAP (BACID) PO SCH ×2 (09:40→17:49)
[2021-02-10] MEDS: SERTRALINE HCL 50 MG TAB PO SCH (09:40)
[2021-02-10] MEDS: HumaLOG INSULIN (NovoLOG) PER UNIT SC SCH ×4 (09:40→21:00)
--- NOTE | 2021-02-10 10:57 | IPNPDOC ---
Subjective Date Seen The patient was seen on 02/10/21. Subjective Chief Complaint/HPI Patient is an 80 year old female with IDDM type 2 who presents with altered mental status. Today, she denies any chest pain or dyspnea. Leukocytosis and CRP improved. Objective Physical Examination General Exam: Positive: Alert, Cooperative Eye Exam: Positive: EOMI; Negative: Sclera icteric ENT Exam: Positive: Atraumatic Neck Exam: Positive: Supple Chest Exam: Positive: Clear to auscultation Heart Exam: Positive: Tachycardic, Regular Rhythm Abdomen Exam: Positive: Normal bowel sounds, Soft; Negative: Tenderness Extremity Exam: Positive: Edema (bilateral pitting edema) Neuro Exam: Positive: Cranial Nerves 3-12 NL Assessment /Plan Assessment Patient is an 80 year old female with IDDM type 2 who presents with altered mental status. She was found to have metabolic encephalopathy 2/2 UTI. Patient was last seen normal on Thursday and first noted to be confused on Thursday. UA demo nstrates pyuria. Urine culture grew yeast like organisms which may be a contaminant as patient is clinically improving. Bladder scan negative for fungal ball. Blood cultures pending. Patient will be empirically treated with ceftriaxone. Otherwise, patient's creatinine has starting to increase. Will hold ramipril. After holding ramipril, renal function improved. Plan/VTE VTE Prophylaxis Ordered?: Yes Plan 1. Metabolic encephalopathy 2/2 UTI -Patient lives independently alone -Niece last spoke to her on Thu/Thu and at that time she was normal -Will empirically treat UTI with ceftriaxone -Pending blood culture results 2. UTI -UA demonstrates pyuria -Ceftriaxone day 6 -Tomorrow will be last day of antibiotics 3. IDDM type 2 -Continue basal insulin at 60u -Carbohydrate consistent diet -Sliding scale insulin 4. Neuropathy -Continue gabapentin 5. Hypertension -Continue Ramipril -PRN hydralazine 6. Mood disorder -Continue sertraline 7. Dyslipidemia -Continue simvastatin 8. Asthma -Continue Advair and PRN Xopenex 9. DVT ppx -Lovenox Disposition: Patient may need rehab. VS, I&O, 24H, Fishbone Vital Signs/I&O Vital Signs Date Time Temp Pulse Resp B/P (MAP) Pulse Ox O2 Delivery O2 Flow Rate FiO2 02/10/21 06:00 99.1 96 18 137/72 (93) 94 Room Air I&O- Last 24 Hours up to 6 AM 02/10/21 06:00 Intake Total 1420 ml Output Total 0 ml Balance 1420 ml Laboratory Data 24H LABS Laboratory Tests 2 02/09/21 11:24: Bedside Glucose (Misc Panel) 262H 02/10/21 06:07: Nucleated Red Blood Cells % (auto) 0.0, Erythrocyte Sedimentation Rate 70H, Anion Gap 3L, Glomerular Filtration Rate > 60.0, Calcium Level 8.8, C-Reactive Protein, Quantitative 5.61H CBC/BMP Laboratory Tests 02/10/21 06:07 Microbiology Microbiology 02/05/21 Blood Culture - Preliminary, Resulted No Growth after 72 hours. All specime... 02/05/21 Urine Culture - Final, Complete Yeast Like Organism 02/05/21 Blood Culture - Preliminary, Resulted No Growth after 72 hours. All specime... CHU MANRIQUEZ DO Feb 10, 2021 10:57
[2021-02-10 14:00] VITALS: BP 124/70
[2021-02-10] MEDS: cefTRIAXone SOD 1 GM in D5W MINI-BAG PLUS 50 ML IV SCH (17:49)
[2021-02-10] MEDS: GABAPENTIN 300 MG CAP PO SCH (21:24)
[2021-02-10] MEDS: SIMVASTATIN 20 MG TAB PO SCH (21:25)
[2021-02-10] MEDS: ACETAMINOPHEN TAB 650MG DOSE (2X325MG) PO PRN (21:25)
[2021-02-10 22:00] VITALS: BP 135/70
[2021-02-11 06:00] VITALS: BP 157/72
[2021-02-11 06:33] LABS: HEMATOCRIT 33.2 % (36.0-47.0); HEMOGLOBIN 10.1 g/dl (12.0-15.5); MEAN CORPUSCULAR HGB CONC 30.4 g/dl (32.0-36.5); PLATELET COUNT, AUTOMATED 248 10^3/uL (150-450); RED BLOOD COUNT 3.61 10^6/uL (4.00-5.40); WHITE BLOOD COUNT 8.1 10^3/uL (4.0-10.0)
[2021-02-11 06:59] LABS: BLOOD UREA NITROGEN 18 MG/DL (7-18); CALCIUM LEVEL 9.2 MG/DL (8.8-10.2); CARBON DIOXIDE LEVEL 26 MEQ/L (21-32); CHLORIDE LEVEL 107 MEQ/L (98-107); CREATININE FOR GFR 0.82 MG/DL (0.55-1.30); GLOMERULAR FILTRATION RATE > 60.0 (>32); GLUCOSE, FASTING 179 MG/DL (70-100); POTASSIUM SERUM 4.7 MEQ/L (3.5-5.1); SODIUM LEVEL 138 MEQ/L (136-145)
[2021-02-11] MEDS: ADVAIR HFA 115/21MCG INHALER INH SCH (07:42)
[2021-02-11] MEDS: HumaLOG INSULIN (NovoLOG) PER UNIT SC SCH ×2 (08:23→12:37)
[2021-02-11] MEDS: SERTRALINE HCL 50 MG TAB PO SCH (08:23)
[2021-02-11] MEDS: LEVEMIR (INSULIN DETEMIR) 1 UNITS/0.01ML SC SCH (08:23)
[2021-02-11] MEDS: ENOXAPARIN 40MG/0.4ML SYRINGE (J1650 PER 10MG) SC SCH (08:23)
[2021-02-11] MEDS: LACTOBACILLUS ACIDOPHILUS CAP (BACID) PO SCH (08:23)
[2021-02-11 12:10] LABS: ANTINUCLEAR ANTIBODIES DIRECT Negative (Negative)
--- NOTE | 2021-02-11 23:44 | DS.PDOC ---
Discharge Summary General Date of Admission Feb 05, 2021 at 16:14 Date of Discharge Feb 11, 2021 Discharge Summary PROCEDURES PERFORMED DURING STAY: None ADMITTING DIAGNOSES: 1. Metabolic encephalopathy 2/2 UTI 2. UTI 3. IDDM type 2 4. Neuropathy 5. Hypertension 6. Mood disorder 7. Dyslipidemia 8. Asthma DISCHARGE DIAGNOSES: 1. Metabolic encephalopathy 2/2 UTI 2. UTI 3. IDDM type 2 4. Neuropathy 5. Hypertension 6. Mood disorder 7. Dyslipidemia 8. Asthma COMPLICATIONS/CHIEF COMPLAINT: Metabolic Encephalopathy, Uti. HISTORY OF PRESENT ILLNESS: Patient is an 80 year old female with IDDM type 2 who presents with altered mental status. When I spoke with the patient, she was confused. She thought that she was at the hospital for her diabetes. She denies fever, chest pain, dyspnea, abdominal pain, or dysuria. I spoke with the patient's associate director career services, Layne Martinez. Patient lives independently alone and was last seen normal on Thursday. Her niece spoke with her on Thursday/Thursday as well, and she was normal at that time. Yesterday, the city maintenance manager saw the patient and was concerned that she was confused. pattern layout worker ask marriage and family social worker and associate director career services, Layne Martinez, to check in on patient. Patient was not acting like herself. They checked her blood sugar which was mildly elevated in the 200s. Patient did not want to go to the ER and decided to wait to see how she did the next day. The next day, she was still confused and she was taken to the ER. While in the ED, vital signs are stable. Mild elevation of WBC at 11.5. No fever, but UA suggestive of UTI. Patient will be admitted for metabolic encephalopathy secondary to UTI. HOSPITAL COURSE: Patient was treated for at total of 7 days of Ceftriaxone for UTI. Urine culture grew yeast like organisms, but this may be a contaminant. Patient is also a diabetic. Otherwise, leukocytosis resolved and CRP has declined. Clinically she has improved and she feels better. Today, she feels well and close to baseline. She denies any chest pain, dyspnea, or abdominal pain. She feels ready for home. She cleared the home safety evaluation and was discharged home. DISCHARGE MEDICATIONS: Please see below. ALLERGIES: Please see below. PHYSICAL EXAMINATION ON DISCHARGE: VITAL SIGNS: Please see below. GENERAL: Comfortable, in no apparent distress HEENT: Head normocephalic, atraumatic NECK: Supple CARDIOVASCULAR EXAMINATION: Regular rate and rhythm RESPIRATORY EXAMINATION: Lungs clear to auscultation bilaterally ABDOMINAL EXAMINATION: Soft, non-tender, normal bowel sounds EXTREMITIES: Bilateral pitting edema SKIN: Warm and dry NEUROLOGICAL EXAMINATION: CN 3-12 grossly intact PSYCHIATRIC EXAMINATION: Normal mood and affect LABORATORY DATA: Please see below. IMAGING: Radiologist interpretation CT head No acute intracranial abnormality seen. CXR No acute cardiopulmonary process appreciated. PROGNOSIS: Good ACTIVITY: As tolerated. DIET: Consistent carbohydrates DISCHARGE PLAN: Home with home health service DISPOSITION: Home Health Service. DISCHARGE INSTRUCTIONS: 1. Follow up with your PCP within 1 week DISCHARGE CONDITION: Stable Total time spent on discharge planning, discharge summary, and medication reconciliation: 40 minutes Vital Signs/I&Os Vital Signs Date Time Temp Pulse Resp B/P (MAP) Pulse Ox O2 Delivery O2 Flow Rate FiO2 02/11/21 06:00 98.5 86 18 157/72 (100) 93 Room Air I&O- Last 24 Hours up to 6 AM 02/11/21 06:00 Intake Total 1780 ml Output Total 0 ml Balance 1780 ml Laboratory Data Labs 24H Laboratory Tests 2 02/11/21 06:05: Nucleated Red Blood Cells % (auto) 0.0, Anion Gap 5L, Glomerular Filtration Rate > 60.0, Calcium Level 9.2 02/11/21 11:23: Bedside Glucose (Misc Panel) 234H CBC/BMP Laboratory Tests 02/11/21 06:05 FSBS Laboratory Tests Test 02/11/21 11:23 Range/Units Bedside Glucose (Misc Panel) 234 83-110 MG/DL Microbiology Microbiology 02/05/21 Blood Culture - Final, Complete NO GROWTH AFTER 5 DAYS 02/05/21 Urine Culture - Final, Complete Yeast Like Organism 02/05/21 Blood Culture - Final, Complete NO GROWTH AFTER 5 DAYS Discharge Medications Scheduled Bisoprolol/Hydrochlorothiazide (Bisoprolol-Hctz 10-6.25 mg Tab) 1 Each Tablet, 1 TAB PO DAILY, (Reported) Ferrous Sulfate (Ferosul) 325 Mg Tablet, 325 MG PO DAILY, (Reported) Gabapentin (Gabapentin) 300 Mg Capsule, 600 MG PO QHS, (Reported) Insulin Aspart (Novolog Flexpen) 100 Unit/1 Ml Insuln.pen, 16 UNITS SQ BID, (Reported) BREAKFAST AND DINNER Insulin Degludec (Tresiba Flextouch U-200) 200 Unit/1 Ml Insuln.pen, 96 UNITS SQ DAILY, (Reported) Insulin Human Lispro (Novolog) 100 Unit/1 Ml Vial, 18 UNITS SC DAILY, (Reported) LUNCH Metformin HCl (Metformin HCl) 500 Mg Tablet, 500 MG PO DAILY, (Reported) Metformin HCl (Metformin HCl) 500 Mg Tablet, 1,000 MG PO QPM, (Reported) WITH DINNER Ramipril (Ramipril) 10 Mg Capsule, 10 MG PO QHS, (Reported) Salmeterol/Fluticasone (Advair 250-50 Diskus) 1 Each Blst.w.dev, 1 PUFF INH BID, (Reported) Sertraline HCl (Sertraline HCl) 50 Mg Tablet, 50 MG PO DAILY, (Reported) Simvastatin (Simvastatin) 20 Mg Tablet, 20 MG PO QHS, (Reported) Scheduled PRN Levalbuterol Tartrate (Levalbuterol Tartrate Hfa) 15 Gm Hfa.aer.ad, 2 PUFFS INH QID PRN for SHORTNESS OF BREATH, (Reported) Allergies Coded Allergies: aspirin (Verified Allergy, Unknown, 09/07/19) codeine (Verified Adverse Reaction, Mild, VOMITING, 08/06/20) CHU MANRIQUEZ DO Feb 11, 2021 23:44
== END 2021-02-11 13:55 | disposition home health service (06) | DRG 689 ==
LOC: EDBD 10:11 → M ED 10:11 → M ED INP 16:14 → ENRESERV 16:56 → M MS5PR 17:55
PROVIDERS: ADMIT Internal Medicine; ATTEND Internal Medicine
DX: N39.0 Urinary tract infection, site not specified (principal); G93.41 Metabolic encephalopathy; E11.40 Type 2 diabetes mellitus with diabetic neuropathy, unspecified; J45.909 Unspecified asthma, uncomplicated; E78.5 Hyperlipidemia, unspecified; I10 Essential (primary) hypertension; F39 Unspecified mood [affective] disorder; Z79.4 Long term (current) use of insulin; Z79.899 Other long term (current) drug therapy; Z88.6 Allergy status to analgesic agent; Z88.5 Allergy status to narcotic agent

== ENCOUNTER 2021-03-26 12:30 | Emergency (ER) | payer MEDICARE ==
[~2021-03-26] VITALS: Ht 149.9 cm; Wt 62.7 kg
[~2021-03-26 12:30] MED LIST changes: +FERR325T19 PO
[2021-03-26] MEDS ORDERED: hydroCHLOROthiazide 12.5 MG CAPSULE PO ONE (13:20)
[2021-03-26] MEDS ORDERED: bisoproloL fumarate 10 MG TAB PO ONE (13:20)
[2021-03-26] MEDS ORDERED: bisoproloL fumarate 5 MG TAB PO ONE (13:45)
[2021-03-26] MEDS ORDERED: amLODIPine 5 MG TAB PO ONE (14:50)
[2021-03-26 16:36] VITALS: BP 188/93
== END 2021-03-26 17:10 | disposition home or self-care (01) ==
LOC: M ED 12:30 → EDBD 12:30 → M ED 17:10
DX: I10 Essential (primary) hypertension (principal); E11.9 Type 2 diabetes mellitus without complications; E78.5 Hyperlipidemia, unspecified; Z79.01 Long term (current) use of anticoagulants; Z79.899 Other long term (current) drug therapy; Z88.5 Allergy status to narcotic agent; Z88.8 Allergy status to other drugs, medicaments and biological substances

== ENCOUNTER → 2021-04-19 | Outpatient (REF) | payer MEDICARE ==
[2021-04-19 17:38] LABS: PERCENT SATURATION 13.2 % (13.2-45.0)
== END ==
LOC: M LAB REF 16:28
PROVIDERS: ATTEND Internal Medicine
DX: D64.9 Anemia, unspecified (principal)

== ENCOUNTER 2021-06-09 16:09 | Inpatient (IN) | payer MEDICARE ==
[~2021-06-09] VITALS: Ht 152.4 cm; Wt 66.4 kg
--- NOTE | 2021-06-09 16:38 | REP ---
INDICATION: Altered Mental Status COMPARISON: 02/05/2021 TECHNIQUE: Portable AP view of the chest FINDINGS: The mediastinum and cardiac silhouette are stable and within normal limits for portable technique. The lung sanches demonstrate stable chronic changes without acute consolidation, effusion, or pneumothorax. Skeletal structures are intact. IMPRESSION: No acute cardiopulmonary process appreciated. <Electronically signed by Elbert Casas > 06/09/21 [id number]
--- NOTE | 2021-06-09 16:50 | REP ---
INDICATION: Altered Mental Status COMPARISON: 02/05/2021 TECHNIQUE: Axial noncontrast images from the skull base to the thoracic inlet with coronal reformations. This CT examination was performed using the following dose reduction techniques: Automated exposure control, adjustment of mA and/or kv according to the patient's size, and use of iterative reconstruction technique. FINDINGS: Atrophy with periventricular leukomalacia and microvascular ischemic changes are appreciated. The ventricles and sulci are symmetric. Fox-white differentiation is maintained. There is no evidence for acute intracranial hemorrhage, mass/mass effect, pathology or infarction. No extra-axial fluid collection. Calvarium is intact. Paranasal sinuses and mastoid air cells are clear. IMPRESSION: Atrophy and microvascular ischemic changes. No acute intracranial hemorrhage, infarction, or mass/mass effect. <Electronically signed by Elbert Casas > 06/09/21 [id number]
--- OUTSIDE RECORDS SUMMARY | 2021-06-09 17:18 | CCD | Continuity of Care Document ---
Author Author Lab Schedule, January Organization Unknown Address [address] [place] [id number] Phone Unavailable Care Team Providers Care Combination Presser Name Role Phone Andrew Bills JR, MD AUTM Unavailable SheilaCon DO AUTM [phone] [facility] AUTM [phone] [facility] AUTM [phone] Problems Active Problems Provider Date Chronic obstructive lung disease Andrew Bills MD Onset : 07/07/2011 Benign essential hypertension Andrew Bills MD Onset: 09/06/2010 Disorder of nervous system due to diabetes mellitus Andrew Bills MD Onset: 07/07/2011 Polyneuropathy due to diabetes mellitus [place] Onset: 07/07/2011 Pure hypercholesterolemia Andrew Bills MD Onset: 07/07 Acquired renal cystic disease Andrew Bills MD Onset: 09/06/2010 Essential hypertension Andrew Bills MD Onset: 08/27/19 16 Social History Type Date Description Comments Sex Unknown ETOH Use Rarely consumes beer ETOH Use Rarely consumes wine Tobacco Use Start: Unknown End: Unknown Patient is a former smoker SMOKED FOR 20YRS 1 CONCHIS A DAY Allergies, Adverse Reactions, Alerts Active Allergies Criticality Reaction | Severity Comments Date Codeine Unable to assess criticality 08/09/2010 Aspirin Unable to assess criticality 08/09/2010 Levemir Unable to assess criticality 09/24/2015 Medications Active Medications SIG Qnty Indications Ordering Provide r Date Ferrous Sulfate 325(65Fe) mg Table ts 1 by mouth every day 90tabs Andrew Bills MD 01/01/2021 Shingrix 50mcg/0.5ML Suspension Re c administer 0.5 milliliters intramuscular, repeat in 2 to 6 months 2units Andrew Bills MD 09/05/2019 Sertraline HCL 50mg Tablets Take One Tablet By Mouth Every Day 90tabs Andrew Bills MD 09/20/2018 Levalbuterol Tartrate 45mcg/Act Ae rosol Inhale 2 Puffs By Mouth Four Times A Day 45units Andrew Bills MD 08/16/2018 BD Uf Layla Pen Needle [id number] Use as Directed Two Times A Da y Or as Directed 200units Andrew Bills MD 03/24/2018 Bisoprolol Fumarate/Hydrochlorothiazide 10-6.25mg Tablets Take One Tablet By Mouth Every Day 90tabs Andrew Bills MD 08/07/2017 Tresiba Flextouch 20 0Unit/ML Solution Pen-Inject inject 40 units under the skin once daily every pm 18units Andrew Bills MD 04/15/2017 Novolog Flexpen 100U nit/ML Solution Pen-Inject inject 14 units three times daily with meals 45units Adriana Hanks, AROLDO 09/29/2014 [employer] Contour Blood Glucose Test Strips Strips test two times a day as directed E11.9 200units Chevy Bills DO 07/03/2014 BD Pen Needle/Layla/Ultra Fine/32G X 4mm 32G X 4 mm Misc test bid or as directed dxE11.65 200units E11.65 Andrew Bills MD 07/03/2014 Hydrocodone-Acetaminophen 5-325mg Tablets 1 by mouth every 6 hour as needed pain 50tabs Andrew Bills MD 12/26/2013 Gabapentin 300mg Capsules Take 2 Capsules By Mouth AT Bedtime 180caps Andrew Bills MD 2013 Ramipril 10mg Capsules Take One Capsule By Mouth Every Day 90caps Liz Taylor DO 11/29/2012 Triamcinolone Acetonide 0.1% Cream Apply To Affected Area(S) Three Times A Day as Needed 30units Adriana Hanks, AROLDO 09/01/2011 Sinus & Allergy 12 Hour 120mg Tablets ER 12HR Andrew Bills MD 2010 Advair Diskus 250-50mcg/Dose Aeros ol Inhale One puff By Mouth Twice A Day 60units Andrew Bills MD 11/13/2010 Simvastatin 20mg Tablets Take One Tablet By Mouth AT Bedtime 90tabs Andrew Bills MD 2009 History Medications Metformin HCL ER 500mg Tablets ER 24HR Take 1 Tablet By Mouth With Breakfast, 1 by mouth with lunch And 2 Tablets With Supper Daily 270tabs JORI López JR 021 - 05/03/2021 Medications Administered in Office Medication SIG Qnty Indications Ordering Provider Date Administration Of Flu Vaccine Inj dayan Bills MD 05/22/2020 Administration Of Flu Vaccine Inj dayan Bills MD 07/10/2017 Administration Of Flu Vaccine Inj dyaan Bills MD 06/24/2016 Administration Of Flu Vaccine Inj ection AROLDO Siu 05/31/2013 Administration Of Flu Vaccine Inj yoelion Andrew Bills MD 05/24/2012 Administration Of Flu Vaccine Inj yoelion Andrew Bills MD 07/07/2011 Administration Of Flu Vaccine Inj dayan Bills MD 05/30/2010 Administration Of Flu Vaccine Inj dayan Bills MD 05/17/2009 Administration Of Flu Vaccine Inj ection Surekha Fontanez FNP 06/22/2003 Immunizations CPT Code Status Date Vaccine Lot # [id number] Given 05/22/2020 Influenza Vaccin e Quadrivalent Preser/Antibiotic Free Im Use [id number] U-Flu Given 06/03/2018 Influenza,Unspecified 28936 Given 07/10/2017 Influenza Vaccin e Quadrivalent Preser/Antibiotic Free Im Use [id number] Q2037 Given 06/24/2016 Fluvirin Virus Vaccine 82921 01 39916 Given 09/29/2014 Prevnar 13 [id number] Q2037 Given 05/31/2013 Fluvirin Virus Vaccine 60048 01 Q2037 Given 05/24/2012 Fluvirin Virus Vaccine Q2037 Given 07/07/2011 Fluvirin Virus Vaccine 63179 Given 05/30/2010 Influenza Virus Vaccine 22326 Given 05/17/2009 Influenza Virus Vaccine 96129 Given 07/12/2003 Pneumovax 23 30670 Given 06/22/2003 Influenza Virus Vaccine Vital Signs Date Vital Result Comment 05/03/2021 2:56pm BP Systolic 144 mmHg BP Diastolic 80 mmHg Heart Rate 68 /min Height 63.75 inches 5'3.75" Weight 147.00 lb BMI (Body Mass Index) 25.4 kg/m2 2021 9:46am BP Systolic 146 mmHg BP Diastolic 72 mmHg Heart Rate 65 /min Height 63.75 inches 5'3.75" Weight 147.00 lb O2 % BldC Oximetry 96 % BMI (Body Mass Index) 25.4 kg/m2 Results Test Acquired Date Facility Test Result H/L Range Note Microalbumin/Creatinine Urine 05/06/2021 [facility], Seat Coverer: [place] [address] [phone] Microalbumin Urine 83.9 mg/L High 1.3 - 20.0 Urine Creatinine 78.3 mg/dL 30.0 - 125.0 Microalb/Creat Ratio 107.2 ug/mg High 0.0 - 30.0 Complete Blood Count 05/03/2021 [facility] Seat Coverer: [place] [address] [phone] WBC 9.1 x10*3/UL 4.1 - 10.9 RBC 3.32 x10*6/UL Low 4.20 - 6.30 Hemoglobin 9.4 g/dL Low 12.0 - 18.0 1 Hematocrit 29.0 % Low 37.0 - 51.0 MCV 87.4 fL 80.0 - 97.0 MCH 28.4 pg 26.0 - 32.0 MCHC 32.5 g/dL 31.0 - 38.0 RDW 15.0 % High 11.6 - 13.7 PLT 309 x10*3/UL 140 - 440 MPV 8.5 FL 7.8 - 11.0 Lymph % 28.2 % 10.0 - 58.5 Mid % 6.8 % 1.7 - 9.3 Neut % 65.0 % 37.0 - 92.0 Lymph # 2.5 x10*3/UL 0.6 - 4.1 Mid # 0.7 x10*3/UL High 0.1 - 0.6 Neut # 5.9 x10*3/UL 2.0 - 7.8 A1c 05/03/2021 [facility] Seat Coverer: [place] [address] [phone] Hba1c 8.0 % High <5.7 2 Est Avg Glucose 183 mg/dL High 60 - 110 Comprehensive Chem Profile 05/03/2021 [facility] Seat Coverer: [place] [address] [phone] Glucose 167 mg/dL High 74 - 99 3 BUN 24 mg/dL High 7 - 18 Creatinine 1.0 mg/dL 0.6 - 1.3 Sodium 142 mEq/L 136 - 145 Potassium 4.1 mEq/L 3.5 - 5.1 Chloride 106 mEq/L 98 - 107 Carbon Dioxide 26 mEq/L 21 - 32 Calcium 9.1 mg/dL 8.5 - 10.1 Alk. Phosphatase 134 mg/dL High 46 - 116 Total Bilirubin 0.7 mg/dL 0.2 - 1.0 Ast (Sgot) 33 U/L 15 - 37 Alt (SGPT) 27 U/L 12 - 78 Albumin 3.8 g/dL 3.4 - 5.0 Total Protein 8.8 g/dL High 6.4 - 8.2 A/G Ratio 0.76 CALC Low 1.00 - 1.90 GFR 53 mL/min Low >60 GFR >= 60 mL/min >60 4 Total Iron Binding Capacit 04/19/[address] [address] [phone] Iron (Fe) 49 g/dL Low 50-170 Total Iron Binding Capacity 371 g/dL Normal 250-450 Percent Saturation 13.2 % Normal 13.2-45.0 Laboratory test finding 04/19/2021 [facility] [address] [place] [address] [phone] Ferritin 38 NG/ML Normal 8-252 Complete Blood Count 04/19/2021 [facility] Seat Coverer: [place] [address] [phone] WBC 9.4 x10*3/UL 4.1 - 10.9 5 RBC 3.49 x10*6/UL Low 4.20 - 6.30 Hemoglobin 9.9 g/dL Low 12.0 - 18.0 Hematocrit 30.3 % Low 37.0 - 51.0 MCV 86.9 fL 80.0 - 97.0 MCH 28.6 pg 26.0 - 32.0 MCHC 32.9 g/dL 31.0 - 38.0 RDW 14.8 % High 11.6 - 13.7 PLT 313 x10*3/UL 140 - 440 MPV 8.7 FL 7.8 - 11.0 Lymph % 21.0 % 10.0 - 58.5 Mid % 6.0 % 1.7 - 9.3 Neut % 73.0 % 37.0 - 92.0 Lymph # 1.9 x10*3/UL 0.6 - 4.1 Mid # 0.6 x10*3/UL 0.1 - 0.6 Neut # 6.9 x10*3/UL 2.0 - 7.8 A1c 2021 [facility] , Seat Coverer: Dr Andrew Bills [place], [place] [id number] [phone] Hba1c 7.9 % High <5.7 6 Est Avg Glucose 180 mg/dL High 60 - 110 Comprehensive Chem Profile 2021 [facility], Seat Coverer: Dr Andrew Bills [place], [place] [address] [phone] Glucose 92 mg/dL 74 - 99 7 BUN 20 mg/dL High 7 - 18 Creatinine 1.0 mg/dL 0.6 - 1.3 Sodium 140 mEq/L 136 - 145 Potassium 4.2 mEq/L 3.5 - 5.1 Chloride 105 mEq/L 98 - 107 Carbon Dioxide 27 mEq/L 21 - 32 Calcium 9.6 mg/dL 8.5 - 10.1 Alk. Phosphatase 132 mg/dL High 46 - 116 Total Bilirubin 0.4 mg/dL 0.2 - 1.0 Ast (Sgot) 17 U/L 15 - 37 Alt (SGPT) 23 U/L 12 - 78 Albumin 3.5 g/dL 3.4 - 5.0 Total Protein 7.8 g/dL 6.4 - 8.2 A/G Ratio 0.81 CALC Low 1.00 - 1.90 GFR 53 mL/min Low >60 GFR >= 60 mL/min >60 8 Complete Blood Count 2021 [facility] Seat Coverer: [place] [address] [phone] WBC 9.7 x10*3/UL 4.1 - 10.9 9 RBC 3.27 x10*6/UL Low 4.20 - 6.30 Hemoglobin 9.6 g/dL Low 12.0 - 18.0 Hematocrit 28.4 % Low 37.0 - 51.0 MCV 86.9 fL 80.0 - 97.0 MCH 29.3 pg 26.0 - 32.0 MCHC 33.7 g/dL 31.0 - 38.0 RDW 14.8 % High 11.6 - 13.7 PLT 351 x10*3/UL 140 - 440 MPV 8.5 FL 7.8 - 11.0 Lymph % 21.2 % 10.0 - 58.5 Mid % 6.4 % 1.7 - 9.3 Neut % 72.4 % 37.0 - 92.0 Lymph # 2.0 x10*3/UL 0.6 - 4.1 Mid # 0.7 x10*3/UL High 0.1 - 0.6 Neut # 7.0 x10*3/UL 2.0 - 7.8 Istat Chem8+ Panel 03/26/2021 [facility]ter [address] [place], [place] [id number] [phone] iSTAT HCT 31.0 % Low 38.0-51.0 iSTAT Glucose 244 mg/dL High 70-105 iSTAT Sodium 141 mEq/L Normal 136-145 iSTAT Potassium 4.4 mEq/L Normal 3.5-5.1 iSTAT CA++ 4.8 mg/dL Normal 4.5-5.3 iSTAT Chloride 103 mEq/L Normal 98-109 iSTAT Co2 26.0 MM/L Normal 23.0-27.0 iSTAT BUN 18 mg/dL Normal 8-26 iSTAT Creatinine 0.7 mg/dL Normal 0.6-1.3 Laboratory test finding 02/05/[address] [address] [phone] Bedside Glucose 274 mg/dL High 83-110 Ua W/ Reflex To Culture 02/05/[address] [address] [phone] Appearance, Urine RFX TURBID High Clear Color, Urine RFX YELLOW Normal Yellow PH,Urine RFX 5.0 units Normal 5.0-9.0 Specific [place] Ur Auto RFX 1.014 Normal 1.002-1.035 Protein, Urine Auto RFX 3+ mg/dL High Negative Glucose, Urine (Ua) Auto RFX 3+ mg/dL High Negative Ketone, Urine Auto RFX 1+ mg/dL High Negative Urobilinogen, Urine Auto RFX 0.2 mg/dL Normal 0.0-2.0 Bilirubin, Urine Auto RFX NEGATIVE Normal Negative Nitrite, Urine Auto RFX NEGATIVE Normal Negative Leukocyte Esterase Ur Auto RFX 3+ High Negative Blood, Urine Blood RFX 2+ High Negative WBC, Urine Auto RFX TNTC /HPF High 0-3 RBC, Urine Auto RFX 71 /HPF High 0-3 Bacteria, Urine Auto RFX NEGATIVE Normal Negative Yeast Like Cell Urine Auto RFX LARGE High None Squam Epithelial Cell Ur Aurfx 3 /HPF Normal 0-6 Hyaline Cast, Urine Auto RFX 0 /LPF Normal 0-1 Laboratory test finding 02/05/[address] [address] [phone] Thyroid Stimulating Hormone 2.130 uIU/ML Normal 0. 358-3.740 Basic Metabolic Profile 02/05/[address] [address] [phone] Glucose, Fasting 269 mg/dL High 70-100 Blood Urea Nitrogen 22 mg/dL High 7-18 Creatinine For GFR 0.90 mg/dL Normal 0.55-1.30 Glomerular Filtration Rate > 60.0 Normal >32 1 0 Sodium Level 134 mEq/L Low 136-145 Potassium Serum 4.6 mEq/L Normal 3.5-5.1 Chloride Level 103 mEq/L Normal 98-107 Carbon Dioxide Level 23 mEq/L Normal 21-32 Anion Gap 8 mEq/L Normal 8-16 Calcium Level 9.8 mg/dL Normal 8.8-10.2 Liver Profile 02/05/2021 [facility] n[facility] [address] [place] [address] [phone] Ast/Sgot 21 U/L Normal 7-37 Alt/SGPT 24 U/L Normal 12-78 Alkaline Phosphatase 148 U/L High 45-117 Bilirubin,Total 0.8 mg/dL Normal 0.2-1.0 Bilirubin,Direct 0.2 mg/dL Normal 0.0-0.2 Total Protein 8.9 GM/DL High 6.4-8.2 Albumin 3.9 GM/DL Normal 3.2-5.2 Albumin/Globulin Ratio 0.8 Low 1.2-2.2 Cardiac Marker Panel 02/05/2021 [facility] enter [address] [place] [address] [phone] CPK Creatine Phosphokinase 145 U/L Normal 26-19 2 CK-MB Value Mass 1.9 NG/ML Normal <3.6 MB/CK Relative Index 1.31 Normal < Or =4 11 Troponin I < 0.02 NG/ML Normal < 0.10 12 CBC With Differential 02/05/2021 [place] [place] [address] [phone] White Blood Count 11.5 10 High 4.0-10.0 Red Blood Count 4.05 10 Normal 4.00-5.40 Hemoglobin 11.5 g/dL Low 12.0-15.5 Hematocrit 37.4 % Normal 36.0-47.0 Mean Corpuscular Volume 92.3 fl Normal 80.0-96.0 Mean Corpuscular Hemoglobin 28.4 pg Normal 27.0-33.0 Mean Corpuscular HGB Conc 30.7 g/dL Low 32.0-36.5 Red Cell Distribution Width 16.5 % High 11.5-14.5 Platelet Count, Automated 298 10 Normal 150-450 Neutrophils % 66.2 % High 36.0-66.0 Lymph % 20.2 % Low 24.0-44.0 [place] % 11.8 % High 2.0-8.0 Eos % 0.6 % Normal 0.0-3.0 Baso % 0.8 % Normal 0.0-1.0 Immature Granulocyte % 0.4 % Normal 0-3.0 Nucleated Red Blood Cell % 0.0 % Normal 0-0 Neutrophils # 7.6 10 Normal 1.5-8.5 Lymph # 2.3 10 Normal 1.5-5.0 [place] # 1.4 10 High 0.0-0.8 Eos # 0.1 10 Normal 0.0-0.5 Baso # 0.1 10 Normal 0.0-0.2 Laboratory test finding 02/05/2021 [facility] [address] [place] [id number] [phone] Lactic Acid Sepsis Protocol 1.5 mmol/L Normal 0.4- 2.0 13 Influenza A/B RSV Covid Amp 02/05/2021 [place] [id number] [phone] Influenza A Amplification NEGATIVE Normal Negati ve 14 Influenza B Amplification NEGATIVE Normal Negative 15 RSV Amplification NEGATIVE Normal Negative 16 Sars Covid-19 Amplification NEGATIVE Normal Negative 17 Laboratory test finding 02/05/2021 [facility] [address] [place] [address] [phone] Ammonia 13 uMOL/L Normal <32 Venous Blood Gas 02/05/2021 [facility] nter [address] [place] [address] [phone] Venous PH 7.324 units Low 7.330-7.430 Venous Partial Pressure Co2 47.1 mmHg Normal 38.0-50.0 Venous Partial Pressure O2 40.3 mmHg Normal 30.0-50.0 Venous Total Co2 25.4 mEq/L Normal 24.0-28.0 Venous Hco3 23.9 mEq/L Normal 23.0-27.0 Venous Base Excess -2.3 Low -2.0-2.0 Venous Standard Hco3 22.0 mEq/L Normal Venous O2 Saturation 71.9 % Normal 60.0-80.0 Microalbumin/Creatinine Urine 01/02/2021 [facility] Seat Coverer: [place] [address] [phone] Microalbumin Urine 281.2 mg/L High 1.3 - 20.0 18 Urine Creatinine 265.8 mg/dL High 30.0 - 125.0 Microalb/Creat Ratio 105.8 ug/mg High 0.0 - 30.0 Total Iron Binding Capacit 12/31/2020 [facility] [address] [place] [address] [phone] Iron (Fe) 40 g/dL Low 50-170 Total Iron Binding Capacity 392 g/dL Normal 250-450 Percent Saturation 10.2 % Low 13.2-45.0 Complete Blood Count 12/31/2020 [facility] Seat Coverer: [place] [address] [phone] WBC 11.7 x10*3/UL High 4.1 - 10.9 RBC 3.63 x10*6/UL Low 4.20 - 6.30 Hemoglobin 10.1 g/dL Low 12.0 - 18.0 Hematocrit 31.1 % Low 37.0 - 51.0 MCV 85.7 fL 80.0 - 97.0 MCH 27.7 pg 26.0 - 32.0 MCHC 32.3 g/dL 31.0 - 38.0 RDW 14.2 % High 11.6 - 13.7 PLT 300 x10*3/UL 140 - 440 MPV 9.1 FL 7.8 - 11.0 Lymph % 25.9 % 10.0 - 58.5 Mid % 5.8 % 1.7 - 9.3 Neut % 68.3 % 37.0 - 92.0 Lymph # 3.0 x10*3/UL 0.6 - 4.1 Mid # 0.7 x10*3/UL High 0.1 - 0.6 Neut # 8.0 x10*3/UL High 2.0 - 7.8 A1c 12/31/2020 [facility] Seat Coverer: [place] [address] [phone] Hba1c 7.5 % High <5.7 19 Est Avg Glucose 169 mg/dL High 60 - 110 Basic Metabolic Panel 12/31/2020 [facility] Seat Coverer: [place] [address] [phone] Glucose 119 mg/dL High 74 - 99 20 BUN 30 mg/dL High 7 - 18 Creatinine 1.1 mg/dL 0.6 - 1.3 Sodium 143 mEq/L 136 - 145 Potassium 4.6 mEq/L 3.5 - 5.1 Chloride 108 mEq/L High 98 - 107 Carbon Dioxide 23 mEq/L 21 - 32 Calcium 8.9 mg/dL 8.5 - 10.1 GFR 48 mL/min Low >60 GFR 58 mL/min Low >60 21 1 NOTE: RESULT VERIFIED. 2 Lab Result Notes: Pre-Diabetes 5.7 - 6.4 % Diabetes = or > 6.5% 3 100-125 mg/dL PRE-DIABET ES/FASTING >126 mg/dL DIABETES/FASTING 4 CHRONIC KIDNEY DISEASE STAGI NG PER NKF STAGE I & II GFR >= 60 NORMAL TO MILDLY DECREASED STAGE III GFR 30-59 MODERATELY DECREASED STAGE IV GFR 15-29 SEVERELY DECREASED STAGE V GFR <15 VERY LITTLE GFR LEFT ESRD GFR <15 ON CAVALRY OFFICER 5 NOTE: CBC VERIFIED 6 Lab Result Notes: Pre-Diabetes 5.7 - 6.4 % Diabetes = or > 6.5% 7 100-125 mg/dL PRE-DIABET ES/FASTING >126 mg/dL DIABETES/FASTING 8 CHRONIC KIDNEY DISEASE STAGI NG PER NKF STAGE I & II GFR >= 60 NORMAL TO MILDLY DECREASED STAGE III GFR 30-59 MODERATELY DECREASED STAGE IV GFR 15-29 SEVERELY DECREASED STAGE V GFR <15 VERY LITTLE GFR LEFT ESRD GFR <15 ON CAVALRY OFFICER 9 NOTE: CBC VERIFIED 10 Units are mL/min/1.73 m2 Chronic Kidney Disease Staging per NKF: Stage I & II GFR >=60 Normal to Mildly Decreased Stage III GFR 30-59 Moderately Decreased Stage IV GFR 15-29 Severely Decreased Stage V GFR <15 Very Little GFR Left ESRD GFR <15 on CAVALRY OFFICER 11 DIAGNOSIS CRITERIA MMB ng/ml Relative Index (RI) NON-AMI < or = 5 N/A OSULLIVAN ZONE > 5 < or = 4 AMI > 5 > 4 12 Troponin I Reference Interva l for [employer] LOCI: 99th Percentile= 0.00-0.045 ng/ml Risk Stratification: <= 0.10 ng/ml Decreased Risk for Adverse Clinical Events. 0.10-1.50 ng/ml Increased Risk for Adv erse Clinical Events. Evaluation of additional criterion and/or repeat testing in 2-6 hours is suggested to rule out myocardial damage. >= 1.50 ng/ml Indicative of Myocardial Injury. 13 Y/N query for Sepsis Lactate Rule: Y 14 Negative results do not prec lude influenza or RSV virus infection and should not be used as the sole basis for treatment or other patient management decisions. 15 Negative results do not prec lude influenza or RSV virus infection and should not be used as the sole basis for treatment or other patient management decisions. 16 Negative results do not prec lude influenza or RSV virus infection and should not be used as the sole basis for treatment or other patient management decisions. 17 A false negative result may occur if a specimen is improperly collected, transported or handled. False negative results may also occur if inadequate numbers of organisms are present in the specimen. As with any molecular test, mutations within the target regions of Xpert Xpress SARS-CoV-2 could affect primer and/or probe binding resulting in failure to detect the presence of virus. This test cannot rule out diseases caused by other bacterial or viral pathogens. DISCLAIMER: Testing was performed using the [employer] SARS-CoV-2 test. This test was developed and its performance characteristics determined by [employer]. This test has not been FDA cleared or approved. This test has been authorized by FDA under an Emergency Use Authorization (EUA). This test is only authorized for the duration of time the declaration that circumstances exist justifying the authorization of the emergency use of in vitro diagnostic tests for detection of SARS-CoV-2 virus and/or diagnosis of COVID-19 infection under section 564(b)(1) of the Act, 21 U.S.C. 360bbb-3(b)(1), unless the authorization is terminated or revoked sooner. 18 NOTE: diluted and verified 19 Lab Result Notes: Pre-Diabetes 5.7 - 6.4 % Diabetes = or > 6.5% 20 100-125 mg/dL PRE-DIABET ES/FASTING >126 mg/dL DIABETES/FASTING 21 CHRONIC KIDNEY DISEASE STAGI NG PER NKF STAGE I & II GFR >= 60 NORMAL TO MILDLY DECREASED STAGE III GFR 30-59 MODERATELY DECREASED STAGE IV GFR 15-29 SEVERELY DECREASED STAGE V GFR <15 VERY LITTLE GFR LEFT ESRD GFR <15 ON CAVALRY OFFICER Procedures Date Code Description Status 05/03/2021 97569 Office/Outpatient Established Mo d MDM 30-39 Min Completed 02/20/2021 52878 Trans Care SRV W/I 14D Of DC, Co mm W/I 2 Dys Med Rec Completed 01/08/2021 63686 Chronic Care MGMT 20 Mins Clinical Staff Time Per Calendar Month Completed 12/31/2020 02171 Office/Outpatient Established Mo d MDM 30-39 Min Completed 12/04/2020 29970 Chronic Care MGMT 20 Mins Clinical Staff Time Per Calendar Month Completed 05/09/2020 [id number] Diabetic Retinal Eye Exam Comple bhanu 04/19/2019 [id number] Diabetic Retinal Eye Exam Comple bhanu 04/14/2018 [id number] Diabetic Retinal Eye Exam Comple bhanu 03/27/2017 [id number] Diabetic Retinal Eye Exam Comple bhanu 03/10/2017 [id number] Diabetic Retinal Eye Exam Comple bhanu 05/21/2015 [id number] Mammogram Completed 11/09/2013 [id number] Diabetic Retinal Eye Exam Comple bhanu 03/31/2013 [id number] Mammogram Completed 12/22/2012 [id number] Diabetic Retinal Eye Exam Comple bhanu 11/16/2012 [id number] Diabetic Retinal Eye Exam Comple bhanu 04/08/2012 [id number] Mammogram Completed 07/24/2009 [id number] Bone Mineral Density Test Comple bhanu 11/26/2007 [id number] Mammogram Completed Medical Devices Description No Information Available Encounters Type Date Location Provider Dx Diagnosis Office Visit 05/03/2021 2:45p [facility] 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.4 technician terminal and repeater (current) use of i nsulin M15.9 Polyosteoarthritis, unspecif ied F11.20 Opioid dependence, uncomplic ated N28.1 Cyst of kidney, acquired D64.9 Anemia, unspecified Assessments Date Code Description Provider 05/06/2021 E11.42 Type 2 diabetes mellitus with di abetic polyneuropathy Andrew Bills MD 05/06/2021 E11.42 Type 2 diabetes mellitus with di abetic polyneuropathy Lab Schedule 05/03/2021 I10 Essential (primary) hypertension Andrew Bills MD 05/03/2021 E11.42 Type 2 diabetes mellitus with di abetic polyneuropathy Andrew Bills MD 05/03/2021 E11.649 Type 2 diabetes mellitus with hy poglycemia without coma Andrew Bills MD 05/03/2021 Z79.4 senior living (current) use of insul in Andrew Bills MD 05/03/2021 E78.00 Pure hypercholesterolemia, unspe cified nAdrew Bills MD 05/03/2021 J44.9 Chronic obstructive pulmonary di sease, unspecified Andrew Bills MD 05/03/2021 N28.1 Cyst of kidney, acquired Andrew Bills MD 05/03/2021 D64.9 Anemia, unspecified Andrew monk MD 2021 I10 Essential (primary) hypertension Chevy Bills DO 2021 E11.42 Type 2 diabetes mellitus with di abetic polyneuropathy Chevy Bills DO 02/20/2021 G93.41 Metabolic encephalopathy JORI López JR 02/20/2021 N39.0 Urinary tract infection, site no t specified JORI López JR 02/20/2021 E11.42 Type 2 diabetes mellitus with di abetic polyneuropathy Yovani Sanchez JR, JORI 02/20/2021 E11.65 Type 2 diabetes mellitus with hy perglycemia JORI López JR 02/20/2021 J44.9 Chronic obstructive pulmonary di sease, unspecified JORI López JR 02/20/2021 E78.00 Pure hypercholesterolemia, unspe cified JORI López JR 02/20/2021 Z79.4 senior living (current) use of insul in JORI López JR 01/08/2021 J44.9 Chronic obstructive pulmonary di sease, unspecified Andrew Bills MD 01/08/2021 E78.00 Pure hypercholesterolemia, unspe cified Andrew Bills MD 01/08/2021 E11.42 Type 2 diabetes mellitus with di abetic polyneuropathy Andrew Bills MD 01/02/2021 E11.42 Type 2 diabetes mellitus with di abetic polyneuropathy Andrew Bills MD 01/02/2021 E11.42 Type 2 diabetes mellitus with di abetic polyneuropathy Lab Schedule 01/02/2021 E11.65 Type 2 diabetes mellitus with hy perglycemia Andrew Bills MD 01/02/2021 E11.65 Type 2 diabetes mellitus with hy perglycemia Lab Schedule 12/31/2020 J44.9 Chronic obstructive pulmonary di sease, unspecified Andrew Bills MD 12/31/2020 E78.00 Pure hypercholesterolemia, unspe cified Andrew Bills MD 12/31/2020 E11.42 Type 2 diabetes mellitus with di abetic polyneuropathy Andrew Bills MD 12/31/2020 E11.65 Type 2 diabetes mellitus with hy perglycemia Andrew Bills MD 12/31/2020 Z79.4 technician terminal and repeater (current) use of insul in Andrew Bills MD 12/31/2020 M15.9 Polyosteoarthritis, unspecified Andrew Bills MD 12/31/2020 F11.20 Opioid dependence, uncomplicated Andrew Bills MD 12/31/2020 N28.1 Cyst of kidney, acquired Andrew Bills MD 12/31/2020 D64.9 Anemia, unspecified Andrew monk MD 12/04/2020 E11.65 Type 2 diabetes mellitus with hy perglycemia Andrew Bills MD 12/04/2020 J44.9 Chronic obstructive pulmonary di sease, unspecified Andrew Bills MD 12/04/2020 E78.00 Pure hypercholesterolemia, unspe cified Andrew Bills MD Plan of Treatment Future Appointment(s):* 08/12/2021 2:15 pm - Andrew Bills MD at [facility] * 06/03/2021 1:15 pm - Nurse Schedule at [facility] 05/03/2021 - Andrew Bills MD* I10 Essential (primary) hypertension* Comments:* Hypertension at JNC-8 guidelines * E11.42 Type 2 diabetes mellitus with diabetic polyneuropathy * E11.649 Type 2 diabetes mellitus with hypoglycemia without coma * Z79.4 senior living (current) use of insulin * E78.00 Pure hypercholesterolemia, unspecified * J44.9 Chronic obstructive pulmonary disease, unspecified * N28.1 Cyst of kidney, acquired * D64.9 Anemia, unspecified Functional Status Description No Information Available Mental Status Description No Information Available Referrals Description No Information Available
--- OUTSIDE RECORDS SUMMARY | 2021-06-09 17:18 | CCD | Continuity of Care Document ---
Author Author Lab Schedule, January Organization Unknown Address [address] [place] [id number] Phone Unavailable Care Team Providers Care Radiotelegraphist Name Role Phone Andrew Bills JR, MD AUTM Unavailable SheilaCon DO AUTM [phone] [facility] AUTM [phone] [facility] AUTM [phone] Problems Active Problems Provider Date Chronic obstructive lung disease Andrew Bills MD Onset : 07/07/2011 Benign essential hypertension Andrew Bills MD Onset: 09/06/2010 Disorder of nervous system due to diabetes mellitus Andrew Bills MD Onset: 07/07/2011 Polyneuropathy due to diabetes mellitus [place] Onset: 07/07/2011 Pure hypercholesterolemia Andrew Bills MD Onset: 07/07 Acquired renal cystic disease Andrew Bills MD Onset: 09/06/2010 Essential hypertension Andrew Bills MD Onset: 08/27/19 16 Social History Type Date Description Comments Sex Unknown ETOH Use Rarely consumes beer ETOH Use Rarely consumes wine Tobacco Use Start: Unknown End: Unknown Patient is a former smoker SMOKED FOR 20YRS 1 CONCHIS A DAY Allergies and adverse reactions Active Allergies Criticality Reaction | Severity Comments [...] MD 08/16/2018 BD Uf Layla Pen Needle [id number] Use as Directed Two Times A Da [...] with meals 45units Adriana Hanks, AROLDO 09/29/2014 Josias Contour Blood Glucose Test Strips Strips test [...] MD 05/22/2020 Administration Of Flu Vaccine Inj yoelion Andrew Bills MD 07/10/2017 Administration Of Flu Vaccine Inj yoelion Andrew Bills MD 06/24/2016 Administration Of Flu Vaccine Inj ection AROLDO Siu 05/31/2013 Administration Of Flu Vaccine Inj yoelion Andrew Bills MD 05/24/2012 Administration Of Flu Vaccine Inj yoelion Andrew Bills MD 07/07/2011 Administration Of Flu Vaccine Inj yoelion Andrew Bills MD 05/30/2010 Administration Of Flu Vaccine Inj yoelion Andrew Bills MD 05/17/2009 Administration Of Flu Vaccine Inj ection Surekha Fontanez FNP 06/22/2003 Immunizations CPT Code Status Date Vaccine Lot # [id number] Given 05/22/2020 Influenza Vaccin e Quadrivalent Preser/Antibiotic Free Im Use [id number] U-Flu Given 06/03/2018 Influenza,Unspecified 15713 Given 07/10/2017 Influenza Vaccin e Quadrivalent Preser/Antibiotic Free Im Use [id number] Q2037 Given 06/24/2016 Fluvirin Virus Vaccine 30070 01 23377 Given 09/29/2014 Prevnar 13 [id number] Q2037 Given 05/31/2013 Fluvirin Virus Vaccine 73739 01 Q2037 Given 05/24/2012 Fluvirin Virus Vaccine Q2037 Given 07/07/2011 Fluvirin Virus Vaccine 64591 Given 05/30/2010 Influenza Virus Vaccine 90579 Given 05/17/2009 Influenza Virus Vaccine 63434 Given 07/12/2003 Pneumovax 23 65080 Given 06/22/2003 Influenza Virus Vaccine Vital Signs [...] Result H/L Range Note Microalbumin/Creatinine Urine 05/06/2021 [facility] Supervisor Cytology: [place] [address] [phone] Microalbumin Urine 83.9 mg/L High 1.3 - 20.0 Urine Creatinine 78.3 mg/dL 30.0 - 125.0 Microalb/Creat Ratio 107.2 ug/mg High 0.0 - 30.0 Complete Blood Count 05/03/2021 [facility] Supervisor Cytology: [place] [address] [phone] WBC 9.1 x10*3/UL 4.1 - 10.9 RBC [...] 5.9 x10*3/UL 2.0 - 7.8 A1c 05/03/2021 [facility] Supervisor Cytology: [place] [address] [phone] Hba1c 8.0 % High <5.7 2 Est Avg Glucose 183 mg/dL High 60 - 110 Comprehensive Chem Profile 05/03/2021 [facility] Supervisor Cytology: [place] [address] [phone] Glucose 167 mg/dL High 74 - 99 [...] >60 4 Total Iron Binding Capacit 04/19/2021 [facility] [address] [place] [address] [phone] Iron (Fe) 49 g/dL Low 50-170 Total Iron Binding Capacity 371 g/dL Normal 250-450 Percent Saturation 13.2 % Normal 13.2-45.0 Laboratory test finding 04/19/2021 [facility] [address] [place] [address] [phone] Ferritin 38 NG/ML Normal 8-252 Complete Blood Count 04/19/2021 [facility] Supervisor Cytology: [place] [address] [phone] WBC 9.4 x10*3/UL 4.1 - 10.9 5 [...] 6.9 x10*3/UL 2.0 - 7.8 A1c 2021 [facility] Supervisor Cytology: Dr Andrew Bills [place], [place] [id number] [phone] Hba1c 7.9 % High <5.7 6 Est Avg Glucose 180 mg/dL High 60 - 110 Comprehensive Chem Profile 2021 [facility] Supervisor Cytology: Dr Andrew Masterslogg [place], [place] [id number] [phone] Glucose 92 mg/dL 74 - 99 7 [...] mL/min >60 8 Complete Blood Count 2021 [facility] Supervisor Cytology: [place] [address] [phone] WBC 9.7 x10*3/UL 4.1 - 10.9 9 [...] 2.0 - 7.8 Istat Chem8+ Panel 03/26/2021 [facility] [address] [place], [place] [id number] [phone] iSTAT HCT 31.0 % Low 38.0-51.0 iSTAT Glucose 244 mg/dL High 70-105 iSTAT Sodium 141 mEq/L Normal 136-145 iSTAT Potassium 4.4 mEq/L Normal 3.5-5.1 iSTAT CA++ 4.8 mg/dL Normal 4.5-5.3 iSTAT Chloride 103 mEq/L Normal 98-109 iSTAT Co2 26.0 MM/L Normal 23.0-27.0 iSTAT BUN 18 mg/dL Normal 8-26 iSTAT Creatinine 0.7 mg/dL Normal 0.6-1.3 Laboratory test finding 02/05/[address] [address] [phone] Bedside Glucose 274 mg/dL High 83-110 Ua W/ Reflex To Culture 02/05/[address] [address] [phone] Appearance, Urine RFX TURBID High Clear Color, Urine RFX YELLOW Normal Yellow PH,Urine RFX 5.0 units Normal 5.0-9.0 Specific [place] Ur Auto RFX 1.014 Normal 1.002-1.035 Protein, [...] /LPF Normal 0-1 Laboratory test finding 02/05/[address] [address] [phone] Thyroid Stimulating Hormone 2.130 uIU/ML Normal 0. 358-3.740 Basic Metabolic Profile 02/05/[address] [address] [phone] Glucose, Fasting 269 mg/dL High 70-100 Blood [...] 9.8 mg/dL Normal 8.8-10.2 Liver Profile 02/05/2021 [facility] n[facility] [address] [place] [address] [phone] Ast/Sgot 21 U/L Normal 7-37 Alt/SGPT 24 U/L Normal 12-78 Alkaline Phosphatase 148 U/L High 45-117 Bilirubin,Total 0.8 mg/dL Normal 0.2-1.0 Bilirubin,Direct 0.2 mg/dL Normal 0.0-0.2 Total Protein 8.9 GM/DL High 6.4-8.2 Albumin 3.9 GM/DL Normal 3.2-5.2 Albumin/Globulin Ratio 0.8 Low 1.2-2.2 Cardiac Marker Panel 02/05/2021 [facility] enter [address] [place] [address] [phone] CPK Creatine Phosphokinase 145 U/L Normal 26-19 2 CK-MB Value Mass 1.9 NG/ML Normal <3.6 MB/CK Relative Index 1.31 Normal < Or =4 11 Troponin I < 0.02 NG/ML Normal < 0.10 12 CBC With Differential 02/05/2021 [facility] [address] [place] [address] [phone] White Blood Count 11.5 10 High 4.0-10.0 [...] 36.0-66.0 Lymph % 20.2 % Low 24.0-44.0 [place] % 11.8 % High 2.0-8.0 Eos % 0.6 % Normal 0.0-3.0 Baso % 0.8 % Normal 0.0-1.0 Immature Granulocyte % 0.4 % Normal 0-3.0 Nucleated Red Blood Cell % 0.0 % Normal 0-0 Neutrophils # 7.6 10 Normal 1.5-8.5 Lymph # 2.3 10 Normal 1.5-5.0 [place] # 1.4 10 High 0.0-0.8 Eos # 0.1 10 Normal 0.0-0.5 Baso # 0.1 10 Normal 0.0-0.2 Laboratory test finding 02/05/2021 [facility] [address] [place] [address] [phone] Lactic Acid Sepsis Protocol 1.5 mmol/L Normal 0.4- 2.0 13 Influenza A/B RSV Covid Amp 02/05/2021 [place] [address] [phone] Influenza A Amplification NEGATIVE Normal Negati ve 14 Influenza B Amplification NEGATIVE Normal Negative 15 RSV Amplification NEGATIVE Normal Negative 16 Sars Covid-19 Amplification NEGATIVE Normal Negative 17 Laboratory test finding 02/05/2021 [facility] [address] [place] [address] [phone] Ammonia 13 uMOL/L Normal <32 Venous Blood Gas 02/05/2021 [facility] nter [address] [place], [place] [address] [phone] Venous PH 7.324 units Low 7.330-7.430 Venous Partial Pressure Co2 47.1 mmHg Normal 38.0-50.0 Venous Partial Pressure O2 40.3 mmHg Normal 30.0-50.0 Venous Total Co2 25.4 mEq/L Normal 24.0-28.0 Venous Hco3 23.9 mEq/L Normal 23.0-27.0 Venous Base Excess -2.3 Low -2.0-2.0 Venous Standard Hco3 22.0 mEq/L Normal Venous O2 Saturation 71.9 % Normal 60.0-80.0 Microalbumin/Creatinine Urine 01/02/2021 [facility] Supervisor Cytology: [place] [address] [phone] Microalbumin Urine 281.2 mg/L High 1.3 - 20.0 18 Urine Creatinine 265.8 mg/dL High 30.0 - 125.0 Microalb/Creat Ratio 105.8 ug/mg High 0.0 - 30.0 Total Iron Binding Capacit 12/31/2020 [facility] [address] [place] [address] [phone] Iron (Fe) 40 g/dL Low 50-170 Total Iron Binding Capacity 392 g/dL Normal 250-450 Percent Saturation 10.2 % Low 13.2-45.0 Complete Blood Count 12/31/2020 [facility] Supervisor Cytology: [place] [address] [phone] WBC 11.7 x10*3/UL High 4.1 - 10.9 [...] x10*3/UL High 2.0 - 7.8 A1c 12/31/2020 [facility] Supervisor Cytology: [place] [address] [phone] Hba1c 7.5 % High <5.7 19 Est Avg Glucose 169 mg/dL High 60 - 110 Basic Metabolic Panel 12/31/2020 [facility] Supervisor Cytology: [place] [address] [phone] Glucose 119 mg/dL High 74 - 99 [...] LITTLE GFR LEFT ESRD GFR <15 ON DATA ENTRY REPRESENTATIVE 5 NOTE: CBC VERIFIED 6 Lab Result [...] LITTLE GFR LEFT ESRD GFR <15 ON DATA ENTRY REPRESENTATIVE 9 NOTE: CBC VERIFIED 10 Units are mL/min/1.73 m2 Chronic Kidney Disease Staging per NKF: Stage I & II GFR >=60 Normal to Mildly Decreased Stage III GFR 30-59 Moderately Decreased Stage IV GFR 15-29 Severely Decreased Stage V GFR <15 Very Little GFR Left ESRD GFR <15 on DATA ENTRY REPRESENTATIVE 11 DIAGNOSIS CRITERIA MMB ng/ml Relative Index (RI) NON-AMI < or = 5 N/A [place] ZONE > 5 < or = 4 AMI > 5 > 4 12 Troponin I Reference Interva l for [employer] LOCI: 99th Percentile= 0.00-0.045 ng/ml Risk Stratification: [...] pathogens. DISCLAIMER: Testing was performed using the [employer] SARS-CoV-2 test. This test was developed and its performance characteristics determined by [employer]. This test has not been FDA cleared [...] LITTLE GFR LEFT ESRD GFR <15 ON DATA ENTRY REPRESENTATIVE Procedures Date Code Description Status 05/03/2021 65896 Office/Outpatient Established Mo d MDM 30-39 Min Completed 02/20/2021 78704 [facility] Care SRV W/I 14D Of DC, Co mm W/I 2 Dys Med Rec Completed 01/08/2021 51616 Chronic Care MGMT 20 Mins Clinical Staff Time Per Calendar Month Completed 12/31/2020 58050 Office/Outpatient Established Mo d MDM 30-39 Min Completed 12/04/2020 91397 Chronic Care MGMT 20 Mins Clinical Staff Time Per Calendar Month Completed 05/09/2020 711476541 Diabetic Retinal Eye Exam Comple bhanu 04/19/2019 [id number] Diabetic Retinal Eye Exam Comple bhanu 04/14/2018 [id number] Diabetic Retinal Eye Exam Comple bhanu 03/27/2017 [id number] Diabetic Retinal Eye Exam Comple bhanu 03/10/2017 [id number] Diabetic Retinal Eye Exam Comple bhanu 05/21/2015 [id number] Mammogram Completed 11/09/2013 [id number] Diabetic Retinal Eye Exam Comple bhanu 03/31/2013 [id number] Mammogram Completed 12/22/2012 [id number] Diabetic Retinal Eye Exam Comple bhanu 11/16/2012 [id number] Diabetic Retinal Eye Exam Comple bhanu 04/08/2012 [id number] Mammogram Completed 07/24/2009 [id number] Bone Mineral Density Test Comple bhanu 11/26/2007 [id number] Mammogram Completed Medical Devices Description No Information Available Encounters Type Date Location Provider Dx Diagnosis [facility] Visit [facility] Essential (primary) hypertension 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 E11.649 Type 2 diabetes mellitus wit h hypoglycemia without coma Z79.4 meterman (current) use of i nsulin E78.00 Pure hypercholesterolemia, u nspecified J44.9 Chronic obstructive pulmonar y disease, unspecified N28.1 Cyst of kidney, acquired D64.9 Anemia, unspecified Office Visit 02/20/2021 1:[facility]p [facility] G93.41 Metabolic encephalopathy N39.0 Urinary tract infection, sit e not specified 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 E11.65 Type 2 diabetes mellitus wit h hyperglycemia J44.9 Chronic obstructive pulmonar y disease, unspecified E78.00 Pure hypercholesterolemia, u nspecified Z79.4 [facility] (current) use of i nsulin Office Visit 12/31/2020 11:40a [facility] 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.4 [facility] (current) use of i nsulin M15.9 Polyosteoarthritis, [...] without coma Andrew Bills MD 05/03/2021 Z79.4 [facility] (current) use of insul in Andrew Bills MD 05/03/2021 E78.00 Pure hypercholesterolemia, unspe cified Andrew Bills MD 05/03/2021 J44.9 Chronic obstructive pulmonary di sease, unspecified Andrew Bills MD 05/03/2021 N28.1 Cyst of kidney, acquired Andrew Bills MD 05/03/2021 D64.9 Anemia, unspecified Andrew monk MD 04/19/2021 D64.9 Anemia, unspecified Andrew monk MD 04/19/2021 D64.9 Anemia, unspecified Lab Schedule 2021 I10 Essential (primary) hypertension Chevy Bills DO 2021 E11.42 Type 2 diabetes mellitus with di abetic polyneuropathy Chevy Bills DO 02/20/2021 G93.41 Metabolic encephalopathy JORI López JR 02/20/2021 N39.0 Urinary tract infection, site no t specified JORI López JR 02/20/2021 E11.42 Type 2 diabetes mellitus with di abetic polyneuropathy JORI López JR 02/20/2021 E11.65 Type 2 diabetes mellitus with hy perglycemia JORI López JR 02/20/2021 J44.9 Chronic obstructive pulmonary di sease, unspecified JORI López JR 02/20/2021 E78.00 Pure hypercholesterolemia, unspe cified JORI López JR 02/20/2021 Z79.4 [facility] (current) use of insul in JORI López [...] hy perglycemia Andrew Bills MD 12/31/2020 Z79.4 [place] (current) use of insul in Andrew Bills [...] 2:15 pm - Andrew Bills MD at [facility] * 06/03/2021 1:15 pm - Nurse Schedule at [facility] 05/03/2021 - Andrew Bills MD* I10 Essential (primary) hypertension* Comments:* Hypertension at JNC-8 guidelines * E11.42 Type 2 diabetes mellitus with diabetic polyneuropathy * E11.649 Type 2 diabetes mellitus with hypoglycemia without coma * Z79.4 [facility] (current) use of insulin * E78.00 Pure hypercholesterolemia, unspecified * J44.9 Chronic obstructive pulmonary disease, unspecified * N28.1 Cyst of kidney, acquired * D64.9 Anemia, unspecified Functional Status Description No Information Available Mental Status Description No Information Available Referrals Description No Information Available
--- OUTSIDE RECORDS SUMMARY | 2021-06-09 17:19 | CCD | Continuity of Care Document ---
Author Author Meka Bills MD Organization Unknown Address [address] [facility] [address] [place] [address] Phone [phone] Care Team Providers Care [address] Mechanical Engineer Name Role Phone Andrew Bills JR, MD AUTM Unavailable SheilaCon lam DO AUTM [phone] [facility] [phone] [facility] AUTM [phone] Problems Active Problems Provider Date Chronic obstructive lung disease Andrew Bills MD Onset : 07/07/2011 Benign essential hypertension Andrew Bills MD Onset: 1 09/06/2010 Disorder of nervous system due to [...] MD 08/16/2018 BD Uf Layla Pen Needle [id number] Use as Directed Two Times A Da [...] A Day as Needed 30units Adriana Hanks, ANP 09/01/2011 Sinus & Allergy 12 Hour 120mg [...] MD 07/10/2017 Administration Of Flu Vaccine Inj dayan Bills MD 06/24/2016 Administration Of Flu Vaccine [...] CPT Code Status Date Vaccine Lot # [id number] Given 05/22/2020 Influenza Vaccin e Quadrivalent Preser/Antibiotic Free Im Use [id number] U-Flu Given 06/03/2018 Influenza,Unspecified 53545 Given 07/10/2017 Influenza Vaccin e Quadrivalent Preser/Antibiotic Free Im Use [id number] Q2037 Given 06/24/2016 Fluvirin Virus Vaccine 77149 01 66022 Given 09/29/2014 Prevnar 13 [id number] Q2037 Given 05/31/2013 Fluvirin Virus Vaccine 87361 01 Q2037 Given 05/24/2012 Fluvirin Virus Vaccine Q2037 Given 07/07/2011 Fluvirin Virus Vaccine 86807 Given 05/30/2010 Influenza Virus Vaccine 00056 Given 05/17/2009 Influenza Virus Vaccine 99128 Given 07/12/2003 Pneumovax 23 [id number] Given 06/22/2003 Influenza Virus Vaccine Vital Signs [...] Result H/L Range Note Microalbumin/Creatinine Urine 05/06/2021 [facility] Gas Appliance Mechanic: [place] [address] [phone] Microalbumin Urine 83.9 mg/L High 1.3 - 20.0 Urine Creatinine 78.3 mg/dL 30.0 - 125.0 Microalb/Creat Ratio 107.2 ug/mg High 0.0 - 30.0 Complete Blood Count 05/03/2021 [facility] Gas Appliance Mechanic: [place] [address] [phone] WBC 9.1 x10*3/UL 4.1 - 10.9 RBC [...] 5.9 x10*3/UL 2.0 - 7.8 A1c 05/03/2021 [facility] Gas Appliance Mechanic: Dr Andrew Bills [place], [place] [id number] [phone] Hba1c 8.0 % High <5.7 2 Est Avg Glucose 183 mg/dL High 60 - 110 Comprehensive Chem Profile 05/03/2021 [facility] Gas Appliance Mechanic: Dr Andrew Bills [place], [place] [id number] [phone] Glucose 167 mg/dL High 74 - 99 [...] >60 4 Total Iron Binding Capacit 04/19/2021 [facility] [address] [place], [place] [address] [phone] Iron (Fe) 49 g/dL Low 50-170 Total Iron Binding Capacity 371 g/dL Normal 250-450 Percent Saturation 13.2 % Normal 13.2-45.0 Laboratory test finding 04/19/2021 [facility] [address] [place] [address] [phone] Ferritin 38 NG/ML Normal 8-252 Complete Blood Count 04/19/2021 [facility] Gas Appliance Mechanic: [place] [address] [phone] WBC 9.4 x10*3/UL 4.1 - 10.9 5 [...] 6.9 x10*3/UL 2.0 - 7.8 A1c 2021 [facility] , Gas Appliance Mechanic: [place] [address] [phone] Hba1c 7.9 % High <5.7 6 Est Avg Glucose 180 mg/dL High 60 - 110 Comprehensive Chem Profile 2021 [facility] Gas Appliance Mechanic: [place] [address] [phone] Glucose 92 mg/dL 74 - 99 7 [...] mL/min >60 8 Complete Blood Count 2021 [facility] Gas Appliance Mechanic: [place] [address] [phone] WBC 9.7 x10*3/UL 4.1 - 10.9 9 [...] 2.0 - 7.8 Istat Chem8+ Panel 03/26/2021 [facility] nter [address] [place] [address] [phone] iSTAT HCT 31.0 % Low 38.0-51.0 iSTAT Glucose 244 mg/dL High 70-105 iSTAT Sodium 141 mEq/L Normal 136-145 iSTAT Potassium 4.4 mEq/L Normal 3.5-5.1 iSTAT CA++ 4.8 mg/dL Normal 4.5-5.3 iSTAT Chloride 103 mEq/L Normal 98-109 iSTAT Co2 26.0 MM/L Normal 23.0-27.0 iSTAT BUN 18 mg/dL Normal 8-26 iSTAT Creatinine 0.7 mg/dL Normal 0.6-1.3 Laboratory test finding 02/05/[address] [address] [phone] Bedside Glucose 274 mg/dL High 83-110 Ua W/ Reflex To Culture 02/05/[address] [address] [phone] Appearance, Urine RFX TURBID High Clear Color, Urine RFX YELLOW Normal Yellow PH,Urine RFX 5.0 units Normal 5.0-9.0 Specific Filer Ur Auto RFX 1.014 Normal 1.002-1.035 Protein, [...] /LPF Normal 0-1 Laboratory test finding 02/05/[address] [address] [phone] Thyroid Stimulating Hormone 2.130 uIU/ML Normal 0. 358-3.740 Basic Metabolic Profile 02/05/[address] [address] [phone] Glucose, Fasting 269 mg/dL High 70-100 Blood [...] 9.8 mg/dL Normal 8.8-10.2 Liver Profile 02/05/2021 [facility] n[facility] [address] [place] [address] [phone] Ast/Sgot 21 U/L Normal 7-37 Alt/SGPT 24 U/L Normal 12-78 Alkaline Phosphatase 148 U/L High 45-117 Bilirubin,Total 0.8 mg/dL Normal 0.2-1.0 Bilirubin,Direct 0.2 mg/dL Normal 0.0-0.2 Total Protein 8.9 GM/DL High 6.4-8.2 Albumin 3.9 GM/DL Normal 3.2-5.2 Albumin/Globulin Ratio 0.8 Low 1.2-2.2 Cardiac Marker Panel 02/05/2021 [facility] [address] [place] [address] [phone] CPK Creatine Phosphokinase 145 U/L Normal 26-19 2 CK-MB Value Mass 1.9 NG/ML Normal <3.6 MB/CK Relative Index 1.31 Normal < Or =4 11 Troponin I < 0.02 NG/ML Normal < 0.10 12 CBC With Differential 02/05/2021 [facility] [address] [place] [address] [phone] White Blood Count 11.5 10 High 4.0-10.0 [...] 36.0-66.0 Lymph % 20.2 % Low 24.0-44.0 [place] % 11.8 % High 2.0-8.0 Eos % 0.6 % Normal 0.0-3.0 Baso % 0.8 % Normal 0.0-1.0 Immature Granulocyte % 0.4 % Normal 0-3.0 Nucleated Red Blood Cell % 0.0 % Normal 0-0 Neutrophils # 7.6 10 Normal 1.5-8.5 Lymph # 2.3 10 Normal 1.5-5.0 [place] # 1.4 10 High 0.0-0.8 Eos # 0.1 10 Normal 0.0-0.5 Baso # 0.1 10 Normal 0.0-0.2 Laboratory test finding 02/05/2021 [facility] [address] [place] [address] [phone] Lactic Acid Sepsis Protocol 1.5 mmol/L Normal 0.4- 2.0 13 Influenza A/B RSV Covid Amp 02/05/2021 [facility] [address] [place] [address] [phone] Influenza A Amplification NEGATIVE Normal Negati ve 14 Influenza B Amplification NEGATIVE Normal Negative 15 RSV Amplification NEGATIVE Normal Negative 16 Sars Covid-19 Amplification NEGATIVE Normal Negative 17 Laboratory test finding 02/05/2021 [facility] [address] [place] [address] [phone] Ammonia 13 uMOL/L Normal <32 Venous Blood Gas 02/05/2021 [facility] [address] [place] [address] [phone] Venous PH 7.324 units Low 7.330-7.430 Venous Partial Pressure Co2 47.1 mmHg Normal 38.0-50.0 Venous Partial Pressure O2 40.3 mmHg Normal 30.0-50.0 Venous Total Co2 25.4 mEq/L Normal 24.0-28.0 Venous Hco3 23.9 mEq/L Normal 23.0-27.0 Venous Base Excess -2.3 Low -2.0-2.0 Venous Standard Hco3 22.0 mEq/L Normal Venous O2 Saturation 71.9 % Normal 60.0-80.0 Microalbumin/Creatinine Urine 01/02/2021 [facility] Gas Appliance Mechanic: [place] [address] [phone] Microalbumin Urine 281.2 mg/L High 1.3 - 20.0 18 Urine Creatinine 265.8 mg/dL High 30.0 - 125.0 Microalb/Creat Ratio 105.8 ug/mg High 0.0 - 30.0 Total Iron Binding Capacit 12/31/2020 [facility] [address] [place] [address] [phone] Iron (Fe) 40 g/dL Low 50-170 Total Iron Binding Capacity 392 g/dL Normal 250-450 Percent Saturation 10.2 % Low 13.2-45.0 Complete Blood Count 12/31/2020 [facility] Gas Appliance Mechanic: [place] [address] [phone] WBC 11.7 x10*3/UL High 4.1 - 10.9 [...] x10*3/UL High 2.0 - 7.8 A1c 12/31/2020 [facility] Gas Appliance Mechanic: [place] [address] [phone] Hba1c 7.5 % High <5.7 19 Est Avg Glucose 169 mg/dL High 60 - 110 Basic Metabolic Panel 12/31/2020 [facility] [employer] Appliance Mechanic: Dr Andrew Bills [place], [place] [address] [phone] Glucose 119 mg/dL High 74 - 99 [...] LITTLE GFR LEFT ESRD GFR <15 ON CUSTOMER RECORDS DIVISION SUPERVISOR 5 NOTE: CBC VERIFIED 6 Lab Result [...] LITTLE GFR LEFT ESRD GFR <15 ON CUSTOMER RECORDS DIVISION SUPERVISOR 9 NOTE: CBC VERIFIED 10 Units are mL/min/1.73 m2 Chronic Kidney Disease Staging per NKF: Stage I & II GFR >=60 Normal to Mildly Decreased Stage III GFR 30-59 Moderately Decreased Stage IV GFR 15-29 Severely Decreased Stage V GFR <15 Very Little GFR Left ESRD GFR <15 on CUSTOMER RECORDS DIVISION SUPERVISOR 11 DIAGNOSIS CRITERIA MMB ng/ml Relative Index (RI) NON-AMI < or = 5 N/A OSULLIVAN ZONE > 5 < or = 4 AMI > 5 > 4 12 Troponin I Reference Interva l for [facility] LOCI: 99th Percentile= 0.00-0.045 ng/ml Risk Stratification: [...] pathogens. DISCLAIMER: Testing was performed using the [facility] SARS-CoV-2 test. This test was developed and its performance characteristics determined by [facility]. This test has not been FDA cleared [...] LITTLE GFR LEFT ESRD GFR <15 ON CUSTOMER RECORDS DIVISION SUPERVISOR Procedures Date Code Description Status 05/03/2021 96731 Office/Outpatient Established Mo d MDM 30-39 Min Completed 02/20/2021 09349 Trans Care SRV W/I 14D Of DC, Co mm W/I 2 Dys Med Rec Completed 01/08/2021 09555 Chronic Care MGMT 20 Mins Clinical Staff Time Per Calendar Month Completed 12/31/2020 74745 Office/Outpatient Established Mo d MDM 30-39 Min Completed 12/04/2020 21891 Chronic Care MGMT 20 Mins Clinical Staff Time Per Calendar Month Completed 11/09/2020 55589 Chronic Care MGMT 20 Mins Clinical Staff Time Per Calendar Month Completed 05/09/2020 [id number] Diabetic Retinal Eye Exam Comple bhanu 04/19/2019 620796710 Diabetic Retinal Eye Exam Comple bhanu 04/14/2018 [id number] Diabetic Retinal Eye Exam Comple bhanu 03/27/2017 [id number] Diabetic Retinal Eye Exam Comple bhanu 03/10/2017 [id number] Diabetic Retinal Eye Exam Comple bhanu 05/21/2015 [id number] Mammogram Completed 11/09/2013 [id number] Diabetic Retinal Eye Exam Comple bhanu 03/31/2013 [id number] Mammogram Completed 12/22/2012 617748025 Diabetic Retinal Eye Exam Comple bhanu 11/16/2012 [id number] Diabetic Retinal Eye Exam Comple bhanu 04/08/2012 [id number] Mammogram Completed 07/24/2009 [id number] Bone Mineral Density Test Comple bhanu 11/26/2007 [id number] Mammogram Completed Medical Devices Description No Information Available Encounters Type Date Location Provider Dx Diagnosis Office Visit 05/03/2021 2:45p [facility] 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.4 long term care administrator (current) use of i nsulin M15.9 Polyosteoarthritis, unspecif ied F11.20 Opioid dependence, uncomplic ated N28.1 Cyst of kidney, acquired D64.9 Anemia, unspecified Assessments Date Code Description Provider 05/03/2021 I10 Essential (primary) hypertension Andrew Bills MD 05/03/2021 E11.42 Type 2 diabetes mellitus with di abetic polyneuropathy Andrew Bills MD 05/03/2021 E11.649 Type 2 diabetes mellitus with hy poglycemia without coma Andrew Bills MD 05/03/2021 Z79.4 long-term (current) use of insul in Andrew Bills [...] unspe cified JORI López JR 02/20/2021 Z79.4 long term care administrator (current) use of insul in JORI López [...] hy perglycemia Andrew Bills MD 12/31/2020 Z79.4 long term care administrator (current) use of insul in Andrew Bills [...] Pure hypercholesterolemia, unspe cified Andrew Bills MD 11/09/2020 J44.9 Chronic obstructive pulmonary di sease, unspecified Andrew Bills MD 11/09/2020 E78.00 Pure hypercholesterolemia, unspe cified Andrew Bills MD 11/09/2020 F34.1 Dysthymic disorder Andrew montanez MD 11/09/2020 E11.42 Type 2 diabetes mellitus with di abetic polyneuropathy Andrew Bills MD Plan of Treatment Future Appointment(s):* 08/12/2021 2:15 pm - Andrew Bills MD at [facility] * 06/03/2021 1:15 pm - Nurse Schedule at [facility] 05/03/2021 - Andrew Bills MD* I10 Essential (primary) hypertension* Comments:* Hypertension at [facility]-8 guidelines * E11.42 Type 2 diabetes mellitus with diabetic polyneuropathy * E11.649 Type 2 diabetes mellitus with hypoglycemia without coma * Z79.4 long term care administrator (current) use of insulin * E78.00 Pure hypercholesterolemia, unspecified * J44.9 Chronic obstructive pulmonary disease, unspecified * N28.1 Cyst of kidney, acquired * D64.9 Anemia, unspecified Functional Status Description No Information Available Mental Status Description No Information Available Referrals Description No Information Available
--- OUTSIDE RECORDS SUMMARY | 2021-06-09 17:19 | CCD | Continuity of Care Document ---
Author Author Lab Schedule, January Organization Unknown Address [address] [place] [id number] Phone Unavailable Care Team Providers Care Principal Engineer Name Role Phone Andrew Bills JR, MD AUTM Unavailable SheilaCon DO AUTM [phone] [facility] AUTM [phone] [facility] AUTM [phone] Problems Active Problems Provider Date Chronic obstructive [...] MD 08/16/2018 [facility] Layla Pen Needle [id number] Use as Directed Two Times A Da [...] with meals 45units Adriana Hanks, AROLDO 09/29/2014 [employer] Contour Blood Glucose Test Strips Strips test [...] CPT Code Status Date Vaccine Lot # 53736 Given 05/22/2020 Influenza Vaccin e Quadrivalent Preser/Antibiotic Free Im Use [id number] U-Flu Given 06/03/2018 Influenza,Unspecified 34393 Given 07/10/2017 Influenza Vaccin e Quadrivalent Preser/Antibiotic Free Im Use [id number] Q2037 Given 06/24/2016 Fluvirin Virus Vaccine 34174 01 97179 Given 09/29/2014 Prevnar 13 [id number] Q2037 Given 05/31/2013 Fluvirin Virus Vaccine 49797 01 Q2037 Given 05/24/2012 Fluvirin Virus Vaccine Q2037 Given 07/07/2011 Fluvirin Virus Vaccine 59474 Given 05/30/2010 Influenza Virus Vaccine 43444 Given 05/17/2009 Influenza Virus Vaccine 48766 Given 07/12/2003 Pneumovax 23 12513 Given 06/22/2003 Influenza Virus Vaccine Vital Signs [...] Date Facility Test Result H/L Range Note A1c 05/03/2021 [facility] Rail Crew Member: [place] [address] [phone] Hba1c 8.0 % High <5.7 1 Est Avg Glucose 183 mg/dL High 60 - 110 Comprehensive Chem Profile 05/03/2021 [facility] Rail Crew Member: [place] [address] [phone] Glucose 167 mg/dL High 74 - 99 2 BUN 24 mg/dL High 7 - 18 [...] Low >60 GFR >= 60 mL/min >60 3 Complete Blood Count 05/03/2021 [facility] Rail Crew Member: [place] [address] [phone] WBC 9.1 x10*3/UL 4.1 - 10.9 RBC 3.32 x10*6/UL Low 4.20 - 6.30 Hemoglobin 9.4 g/dL Low 12.0 - 18.0 4 Hematocrit 29.0 % Low 37.0 - 51.0 [...] Neut # 5.9 x10*3/UL 2.0 - 7.8 Total Iron Binding Capacit 04/19/[address] [id number] [phone] Iron (Fe) 49 g/dL Low 50-170 Total Iron Binding Capacity 371 g/dL Normal 250-450 Percent Saturation 13.2 % Normal 13.2-45.0 Laboratory test finding 04/19/[address] [id number] [phone] Ferritin 38 NG/ML Normal 8-252 Complete Blood Count 04/19/2021 [facility] Rail Crew Member: [place] [address] [phone] WBC 9.4 x10*3/UL 4.1 - 10.9 5 [...] Neut # 6.9 x10*3/UL 2.0 - 7.8 Complete Blood Count 2021 [facility] Rail Crew Member: [place] [address] [phone] WBC 9.7 x10*3/UL 4.1 - 10.9 6 RBC 3.27 x10*6/UL Low 4.20 - 6.30 [...] Neut # 7.0 x10*3/UL 2.0 - 7.8 A1c 2021 [facility] , Rail Crew Member: [place] [address] [phone] Hba1c 7.9 % High <5.7 7 Est Avg Glucose 180 mg/dL High 60 - 110 Comprehensive Chem Profile 2021 [facility] Rail Crew Member: [place] [address] [phone] Glucose 92 mg/dL 74 - 99 8 BUN 20 mg/dL High 7 - 18 [...] Low >60 GFR >= 60 mL/min >60 9 Istat Chem8+ Panel 03/26/2021 [facility] nter [address] [place], [place] [id number] [phone] iSTAT HCT 31.0 % Low 38.0-51.0 iSTAT Glucose 244 mg/dL High 70-105 iSTAT Sodium 141 mEq/L Normal 136-145 iSTAT Potassium 4.4 mEq/L Normal 3.5-5.1 iSTAT CA++ 4.8 mg/dL Normal 4.5-5.3 iSTAT Chloride 103 mEq/L Normal 98-109 iSTAT Co2 26.0 MM/L Normal 23.0-27.0 iSTAT BUN 18 mg/dL Normal 8-26 iSTAT Creatinine 0.7 mg/dL Normal 0.6-1.3 Laboratory test finding 02/05/2021 [facility] [address] [place] [address] [phone] Bedside Glucose 274 mg/dL High 83-110 Ua W/ Reflex To Culture 02/05/[address] [address] [phone] Appearance, Urine RFX TURBID High Clear Color, Urine RFX YELLOW Normal Yellow PH,Urine RFX 5.0 units Normal 5.0-9.0 Specific [facility] Ur Auto RFX 1.014 Normal 1.002-1.035 Protein, [...] /LPF Normal 0-1 Laboratory test finding 02/05/[address] [address] [phone] Thyroid Stimulating Hormone 2.130 uIU/ML Normal 0. 358-3.740 Basic Metabolic Profile 02/05/[address] [address] [phone] Glucose, Fasting 269 mg/dL High 70-100 Blood [...] 9.8 mg/dL Normal 8.8-10.2 Liver Profile 02/05/2021 [facility] [address] [address] [phone] Ast/Sgot 21 U/L Normal 7-37 Alt/SGPT 24 U/L Normal 12-78 Alkaline Phosphatase 148 U/L High 45-117 Bilirubin,Total 0.8 mg/dL Normal 0.2-1.0 Bilirubin,Direct 0.2 mg/dL Normal 0.0-0.2 Total Protein 8.9 GM/DL High 6.4-8.2 Albumin 3.9 GM/DL Normal 3.2-5.2 Albumin/Globulin Ratio 0.8 Low 1.2-2.2 Cardiac Marker Panel 02/05/2021 [facility] enter [address] [place] [address] [phone] CPK Creatine Phosphokinase 145 U/L Normal 26-19 2 CK-MB Value Mass 1.9 NG/ML Normal <3.6 MB/CK Relative Index 1.31 Normal < Or =4 11 Troponin I < 0.02 NG/ML Normal < 0.10 12 CBC With Differential 02/05/[address] [address] [phone] White Blood Count 11.5 10 High 4.0-10.0 [...] 36.0-66.0 Lymph % 20.2 % Low 24.0-44.0 Porter % 11.8 % High 2.0-8.0 Eos % 0.6 % Normal 0.0-3.0 Baso % 0.8 % Normal 0.0-1.0 Immature Granulocyte % 0.4 % Normal 0-3.0 Nucleated Red Blood Cell % 0.0 % Normal 0-0 Neutrophils # 7.6 10 Normal 1.5-8.5 Lymph # 2.3 10 Normal 1.5-5.0 Porter # 1.4 10 High 0.0-0.8 Eos # 0.1 10 Normal 0.0-0.5 Baso # 0.1 10 Normal 0.0-0.2 Laboratory test finding 02/05/2021 [facility] [address] [place] [address] [phone] Lactic Acid Sepsis Protocol 1.5 mmol/L Normal 0.4- 2.0 13 Influenza A/B RSV Covid Amp 02/05/2021 [facility] [address] [place] [address] [phone] Influenza A Amplification NEGATIVE Normal Negati ve 14 Influenza B Amplification NEGATIVE Normal Negative 15 RSV Amplification NEGATIVE Normal Negative 16 Sars Covid-19 Amplification NEGATIVE Normal Negative 17 Laboratory test finding 02/05/2021 [facility] [address] [place] [address] [phone] Ammonia 13 uMOL/L Normal <32 Venous Blood Gas 02/05/2021 [facility] nter [address] [place] [address] [phone] Venous PH 7.324 units Low 7.330-7.430 Venous Partial Pressure Co2 47.1 mmHg Normal 38.0-50.0 Venous Partial Pressure O2 40.3 mmHg Normal 30.0-50.0 Venous Total Co2 25.4 mEq/L Normal 24.0-28.0 Venous Hco3 23.9 mEq/L Normal 23.0-27.0 Venous Base Excess -2.3 Low -2.0-2.0 Venous Standard Hco3 22.0 mEq/L Normal Venous O2 Saturation 71.9 % Normal 60.0-80.0 Microalbumin/Creatinine Urine 01/02/2021 [facility] Rail Crew Member: [place] [address] [phone] Microalbumin Urine 281.2 mg/L High 1.3 - 20.0 18 Urine Creatinine 265.8 mg/dL High 30.0 - 125.0 Microalb/Creat Ratio 105.8 ug/mg High 0.0 - 30.0 Total Iron Binding Capacit 12/31/2020 [facility] [address] [place] [address] [phone] Iron (Fe) 40 g/dL Low 50-170 Total Iron Binding Capacity 392 g/dL Normal 250-450 Percent Saturation 10.2 % Low 13.2-45.0 Complete Blood Count 12/31/2020 [facility] Rail Crew Member: [place] [address] [phone] WBC 11.7 x10*3/UL High 4.1 - 10.9 [...] x10*3/UL High 2.0 - 7.8 A1c 12/31/2020 [facility] Rail Crew Member: [place] [address] [phone] Hba1c 7.5 % High <5.7 19 Est Avg Glucose 169 mg/dL High 60 - 110 Basic Metabolic Panel 12/31/2020 [facility] Rail Crew Member: [place] [address] [phone] Glucose 119 mg/dL High 74 - 99 [...] GFR 58 mL/min Low >60 21 1 Lab Result Notes: Pre-Diabetes 5.7 - 6.4 % Diabetes = or > 6.5% 2 100-125 mg/dL PRE-DIABET ES/FASTING >126 mg/dL DIABETES/FASTING 3 CHRONIC KIDNEY DISEASE STAGI NG PER NKF STAGE I & II GFR >= 60 NORMAL TO MILDLY DECREASED STAGE III GFR 30-59 MODERATELY DECREASED STAGE IV GFR 15-29 SEVERELY DECREASED STAGE V GFR <15 VERY LITTLE GFR LEFT ESRD GFR <15 ON FORESTRY TECHNICAL OFFICER 4 NOTE: RESULT VERIFIED. 5 NOTE: CBC VERIFIED 6 NOTE: CBC VERIFIED 7 Lab Result Notes: Pre-Diabetes 5.7 - 6.4 % Diabetes = or > 6.5% 8 100-125 mg/dL PRE-DIABET ES/FASTING >126 mg/dL DIABETES/FASTING 9 CHRONIC KIDNEY DISEASE STAGI NG PER NKF STAGE I & II GFR >= 60 NORMAL TO MILDLY DECREASED STAGE III GFR 30-59 MODERATELY DECREASED STAGE IV GFR 15-29 SEVERELY DECREASED STAGE V GFR <15 VERY LITTLE GFR LEFT ESRD GFR <15 ON FORESTRY TECHNICAL OFFICER 10 Units are mL/min/1.73 m2 Chronic Kidney Disease Staging per NKF: Stage I & II GFR >=60 Normal to Mildly Decreased Stage III GFR 30-59 Moderately Decreased Stage IV GFR 15-29 Severely Decreased Stage V GFR <15 Very Little GFR Left ESRD GFR <15 on FORESTRY TECHNICAL OFFICER 11 DIAGNOSIS CRITERIA MMB ng/ml Relative Index (RI) NON-AMI < or = 5 N/A OSULLIVAN ZONE > 5 < or = 4 AMI > 5 > 4 12 Troponin I Reference Interva l for [email or web address] LOCI: 99th Percentile= 0.00-0.045 ng/ml Risk Stratification: [...] pathogens. DISCLAIMER: Testing was performed using the [employer] SARS-CoV-2 test. This test was developed and its performance characteristics determined by [employer]. This test has not been FDA cleared [...] LITTLE GFR LEFT ESRD GFR <15 ON FORESTRY TECHNICAL OFFICER Procedures Date Code Description Status 02/20/2021 26328 Trans Care SRV W/I 14D Of Adali POTTER mm W/I 2 Dys Med Rec Completed 01/08/2021 49006 Chronic Care MGMT 20 Mins Clinical Staff Time Per Calendar Month Completed 12/31/2020 19254 Office/Outpatient Established Mo d MDM 30-39 Min Completed 12/04/2020 76865 Chronic Care MGMT 20 Mins Clinical Staff Time Per Calendar Month Completed 11/09/2020 28716 Chronic Care MGMT 20 Mins Clinical Staff Time Per Calendar Month Completed 05/09/2020 783321658 Diabetic Retinal Eye Exam Comple bhanu 04/19/2019 869474437 Diabetic Retinal Eye Exam Comple bhanu 04/14/2018 377172753 Diabetic Retinal Eye Exam Comple bhanu 03/27/2017 694354474 Diabetic Retinal Eye Exam Comple bhanu 03/10/2017 454916919 Diabetic Retinal Eye Exam Comple bhanu 05/21/2015 [id number] Mammogram Completed 11/09/2013 [id number] Diabetic Retinal Eye Exam Comple bhanu 03/31/2013 [id number] Mammogram Completed 12/22/2012 [id number] Diabetic Retinal Eye Exam Comple bhanu 11/16/2012 [id number] Diabetic Retinal Eye Exam Comple bhanu 04/08/2012 31319592 Mammogram Completed 07/24/2009 934692960 Bone Mineral Density Test Comple bhanu 11/26/2007 [id number] Mammogram Completed Medical Devices Description No Information Available Encounters Type Date Location Provider Dx Diagnosis Office Visit 02/20/2021 1:40p [facility] 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.4 FPC (current) use of i nsulin M15.9 Polyosteoarthritis, [...] without coma Andrew Bills MD 05/03/2021 Z79.4 intermediate project manager (current) use of insul in Andrew Bills MD 05/03/2021 E78.00 Pure hypercholesterolemia, unspe cified Andrew Bills MD 05/03/2021 J44.9 Chronic obstructive pulmonary di sease, unspecified Andrew Bills MD 05/03/2021 N28.1 Cyst of kidney, acquired Andrew Bills MD 05/03/2021 D64.9 Anemia, unspecified Andrew monk MD 2021 I10 Essential (primary) hypertension Chevy Bills, DO 2021 E11.42 Type 2 diabetes mellitus with di abetic polyneuropathy Chevy Bills, DO 02/20/2021 G93.41 Metabolic encephalopathy JORI López [...] unspe cified JORI López JR 02/20/2021 Z79.4 FPC (current) use of insul in JORI López [...] hy perglycemia Andrew Bills MD 12/31/2020 Z79.4 intermediate project manager (current) use of insul in Andrew Bills MD 12/31/2020 M15.9 Polyosteoarthritis, rheaified Andrew Bills MD 12/31/2020 F11.20 Opioid dependence, [...] 2:15 pm - Andrew Bills MD at [facility] * 06/03/2021 1:15 pm - Nurse Schedule at [facility] 05/03/2021 - Andrew Bills MD* I10 Essential (primary) hypertension* Comments:* Hypertension at [facility]-8 guidelines * E11.42 Type 2 diabetes mellitus with diabetic polyneuropathy * E11.649 Type 2 diabetes mellitus with hypoglycemia without coma * Z79.4 intermediate project manager (current) use of insulin * E78.00 Pure hypercholesterolemia, unspecified * J44.9 Chronic obstructive pulmonary disease, unspecified * N28.1 Cyst of kidney, acquired * D64.9 Anemia, unspecified Functional Status Description No Information Available Mental Status Description No Information Available Referrals Description No Information Available
--- OUTSIDE RECORDS SUMMARY | 2021-06-09 17:19 | CCD | Continuity of Care Document ---
Author Author Lab Schedule, January Organization Unknown Address [address] [place] [id number] Phone Unavailable Care Team Providers [employer] Name Role Phone Andrew Bills JR, MD AUTM Unavailable SheilaCon lam DO AUTM [phone] [facility] AUTM [phone] [facility] AUTM [phone] Problems Active Problems Provider Date Chronic obstructive [...] SIG Qnty Indications Ordering Provide r Date Metformin HCL ER 500mg Tablets ER 24HR Take 1 Tablet By Mouth With Breakfast, 1 by mouth with lunch And 2 Tablets With Supper Daily 270tabs JORI López JR 021 Ferrous Sulfate 325(65Fe) mg Table ts 1 [...] MD 08/16/2018 BD Uf Layla Pen Needle [id number] Use as Directed Two Times A Da y Or as Directed 200units Andrew Bills MD 03/24/2018 Bisoprolol Fumarate/Hydrochlorothiazide 10-6.25mg Tablets Take One Tablet By Mouth Every Day 90tabs Andrew Bills MD 08/07/2017 Tresiba Flextouch 20 0Unit/ML Solution Pen-Inject inject 54 units under the skin once daily every pm 18units Andrew Bills MD 04/15/2017 Novolog Flexpen 100U nit/ML Solution Pen-Inject inject 14 units three times daily with meals 45units AROLDO Siu 09/29/2014 BD Pen Needle/Layla/Ultra Fine/32G X 4mm 32G X 4 mm Misc test bid or as directed dxE11.65 200units E11.65 Andrew Bills MD 07/03/2014 Josias Contour Blood Glucose Test Strips Strips test two times a day as directed E11.9 200units Chevy Bills DO 07/03/2014 Hydrocodone-Acetaminophen 5-325mg Tablets 1 by mouth [...] AT Bedtime 90tabs Andrew Bills MD 2009 Medications Administered in Office Medication SIG Qnty Indications Ordering Provider Date Administration Of Flu Vaccine Inj dayan Bills MD 05/22/2020 Administration Of Flu Vaccine Inj dayan Bills MD 07/10/2017 Administration Of Flu Vaccine Inj yoelion Andrew Bills MD 06/24/2016 Administration Of Flu Vaccine Inj ection AROLDO Siu 05/31/2013 Administration Of Flu Vaccine Inj dayan Bills MD 05/24/2012 Administration Of Flu Vaccine Inj yoelion Andrew Bills MD 07/07/2011 Administration Of Flu Vaccine Inj yoelion Andrew Bills MD 05/30/2010 Administration Of Flu Vaccine Inj yoelion Andrew Bills MD 05/17/2009 Administration Of Flu Vaccine Inj ection Surekha Fontanez FNP 06/22/2003 Immunizations CPT Code Status Date Vaccine Lot # [id number] Given 05/22/2020 Influenza Vaccin e Quadrivalent Preser/Antibiotic Free Im Use [id number] U-Flu Given 06/03/2018 Influenza,Unspecified 20244 Given 07/10/2017 Influenza Vaccin e Quadrivalent Preser/Antibiotic Free Im Use [id number] Q2037 Given 06/24/2016 Fluvirin Virus Vaccine 90005 01 49443 Given 09/29/2014 Prevnar 13 [id number] Q2037 Given 05/31/2013 Fluvirin Virus Vaccine 24219 01 Q2037 Given 05/24/2012 Fluvirin Virus Vaccine Q2037 Given 07/07/2011 Fluvirin Virus Vaccine 48838 Given 05/30/2010 Influenza Virus Vaccine 27695 Given 05/17/2009 Influenza Virus Vaccine 60498 Given 07/12/2003 Pneumovax 23 [id number] Given 06/22/2003 Influenza Virus Vaccine Vital Signs Date Vital Result Comment 2021 9:46am BP Systolic 146 mmHg BP Diastolic 72 mmHg Heart Rate 65 /min Height 63.75 inches 5'3.75" Weight 147.00 lb O2 % BldC Oximetry 96 % BMI (Body Mass Index) 25.4 kg/m2 02/20/2021 1:23pm BP Systolic 130 mmHg BP Diastolic 80 mmHg Heart Rate 68 /min Height 63.75 inches 5'3.75" Weight 150.00 lb BMI (Body Mass Index) 25.9 kg/m2 Results Test Acquired Date Facility Test Result H/L Range Note A1c 2021 [facility] Warehouse Logistics Coordinator: [place] [address] [phone] Hba1c 7.9 % High <5.7 1 Est Avg Glucose 180 mg/dL High 60 - 110 Comprehensive Chem Profile 2021 [facility] Warehouse Logistics Coordinator: [place] [address] [phone] Glucose 92 mg/dL 74 - 99 2 BUN 20 mg/dL High 7 - 18 [...] 60 mL/min >60 3 Complete Blood Count 2021 [facility] Warehouse Logistics Coordinator: [place] [address] [phone] WBC 9.7 x10*3/UL 4.1 - 10.9 4 RBC 3.27 x10*6/UL Low 4.20 - 6.30 [...] 2.0 - 7.8 Istat Chem8+ Panel 03/26/2021 [facility] nter [address] [place], [place] [id number] [phone] iSTAT HCT 31.0 % Low 38.0-51.0 iSTAT Glucose 244 mg/dL High 70-105 iSTAT Sodium 141 mEq/L Normal 136-145 iSTAT Potassium 4.4 mEq/L Normal 3.5-5.1 iSTAT CA++ 4.8 mg/dL Normal 4.5-5.3 iSTAT Chloride 103 mEq/L Normal 98-109 iSTAT Co2 26.0 MM/L Normal 23.0-27.0 iSTAT BUN 18 mg/dL Normal 8-26 iSTAT Creatinine 0.7 mg/dL Normal 0.6-1.3 Cardiac Marker Panel 02/05/2021 [facility] enter [address] [place] [address] [phone] CPK Creatine Phosphokinase 145 U/L Normal 26-19 2 CK-MB Value Mass 1.9 NG/ML Normal <3.6 MB/CK Relative Index 1.31 Normal < Or =4 5 Troponin I < 0.02 NG/ML Normal < 0.10 6 Ua W/ Reflex To Culture 02/05/[address] [address] [phone] Appearance, Urine RFX TURBID High Clear Color, Urine RFX YELLOW Normal Yellow PH,Urine RFX 5.0 units Normal 5.0-9.0 Specific [place] Ur Auto RFX 1.014 Normal 1.002-1.035 Protein, [...] /LPF Normal 0-1 Laboratory test finding 02/05/[address] [address] [phone] Thyroid Stimulating Hormone 2.130 uIU/ML Normal 0. 358-3.740 Basic Metabolic Profile 02/05/[address] [address] [phone] Glucose, Fasting 269 mg/dL High 70-100 Blood Urea Nitrogen 22 mg/dL High 7-18 Creatinine For GFR 0.90 mg/dL Normal 0.55-1.30 Glomerular Filtration Rate > 60.0 Normal >32 7 Sodium Level 134 mEq/L Low 136-145 Potassium Serum 4.6 mEq/L Normal 3.5-5.1 Chloride Level 103 mEq/L Normal 98-107 Carbon Dioxide Level 23 mEq/L Normal 21-32 Anion Gap 8 mEq/L Normal 8-16 Calcium Level 9.8 mg/dL Normal 8.8-10.2 Liver Profile 02/05/2021 [facility] nter [address] [place] [address] [phone] Ast/Sgot 21 U/L Normal 7-37 Alt/SGPT 24 U/L Normal 12-78 Alkaline Phosphatase 148 U/L High 45-117 Bilirubin,Total 0.8 mg/dL Normal 0.2-1.0 Bilirubin,Direct 0.2 mg/dL Normal 0.0-0.2 Total Protein 8.9 GM/DL High 6.4-8.2 Albumin 3.9 GM/DL Normal 3.2-5.2 Albumin/Globulin Ratio 0.8 Low 1.2-2.2 CBC With Differential 02/05/[address] [address] [phone] White Blood Count 11.5 10 High 4.0-10.0 [...] 36.0-66.0 Lymph % 20.2 % Low 24.0-44.0 Larue % 11.8 % High 2.0-8.0 Eos % 0.6 % Normal 0.0-3.0 Baso % 0.8 % Normal 0.0-1.0 Immature Granulocyte % 0.4 % Normal 0-3.0 Nucleated Red Blood Cell % 0.0 % Normal 0-0 Neutrophils # 7.6 10 Normal 1.5-8.5 Lymph # 2.3 10 Normal 1.5-5.0 Larue # 1.4 10 High 0.0-0.8 Eos # 0.1 10 Normal 0.0-0.5 Baso # 0.1 10 Normal 0.0-0.2 Laboratory test finding 02/05/2021 [place] [id number] [phone] Lactic Acid Sepsis Protocol 1.5 mmol/L Normal 0.4- 2.0 8 Laboratory test finding 02/05/2021 [facility] [address] [place] [address] [phone] Bedside Glucose 274 mg/dL High 83-110 Influenza A/B RSV Covid Amp 02/05/2021 [facility] [address] [place] [address] [phone] Influenza A Amplification NEGATIVE Normal Negati ve 9 Influenza B Amplification NEGATIVE Normal Negative 10 RSV Amplification NEGATIVE Normal Negative 11 Sars Covid-19 Amplification NEGATIVE Normal Negative 12 Laboratory test finding 02/05/2021 [facility] [address] [place] [address] [phone] Ammonia 13 uMOL/L Normal <32 Venous Blood Gas 02/05/2021 [facility] nter [address] [place] [address] [phone] Venous PH 7.324 units Low 7.330-7.430 Venous Partial Pressure Co2 47.1 mmHg Normal 38.0-50.0 Venous Partial Pressure O2 40.3 mmHg Normal 30.0-50.0 Venous Total Co2 25.4 mEq/L Normal 24.0-28.0 Venous Hco3 23.9 mEq/L Normal 23.0-27.0 Venous Base Excess -2.3 Low -2.0-2.0 Venous Standard Hco3 22.0 mEq/L Normal Venous O2 Saturation 71.9 % Normal 60.0-80.0 Microalbumin/Creatinine Urine 01/02/2021 [facility] Warehouse Logistics Coordinator: Dr Andrew Bills [place] [id number] [phone] Microalbumin Urine 281.2 mg/L High 1.3 - 20.0 13 Urine Creatinine 265.8 mg/dL High 30.0 - 125.0 Microalb/Creat Ratio 105.8 ug/mg High 0.0 - 30.0 Total Iron Binding Capacit 12/31/2020 [facility] [address] [place] [address] [phone] Iron (Fe) 40 g/dL Low 50-170 Total Iron Binding Capacity 392 g/dL Normal 250-450 Percent Saturation 10.2 % Low 13.2-45.0 Complete Blood Count 12/31/2020 [facility] Warehouse Logistics Coordinator: [place] [address] [phone] WBC 11.7 x10*3/UL High 4.1 - 10.9 [...] x10*3/UL High 2.0 - 7.8 A1c 12/31/2020 [facility] Warehouse Logistics Coordinator: [place] [address] [phone] Hba1c 7.5 % High <5.7 14 Est Avg Glucose 169 mg/dL High 60 - 110 Basic Metabolic Panel 12/31/2020 [facility] Warehouse Logistics Coordinator: Dr Andrew [place] [address] [phone] Glucose 119 mg/dL High 74 - 99 15 BUN 30 mg/dL High 7 - 18 Creatinine 1.1 mg/dL 0.6 - 1.3 Sodium 143 mEq/L 136 - 145 Potassium 4.6 mEq/L 3.5 - 5.1 Chloride 108 mEq/L High 98 - 107 Carbon Dioxide 23 mEq/L 21 - 32 Calcium 8.9 mg/dL 8.5 - 10.1 GFR 48 mL/min Low >60 GFR 58 mL/min Low >60 16 1 Lab Result Notes: Pre-Diabetes 5.7 - [...] LITTLE GFR LEFT ESRD GFR <15 ON SCREEN TENDER HELPER 4 NOTE: CBC VERIFIED 5 DIAGNOSIS CRITERIA MMB ng/ml Relative Index (RI) NON-AMI < or = 5 N/A OSULLIVAN ZONE > 5 < or = 4 AMI > 5 > 4 6 Troponin I Reference Interva l for [facility] LOCI: 99th Percentile= 0.00-0.045 ng/ml Risk Stratification: <= 0.10 ng/ml Decreased Risk for Adverse Clinical Events. 0.10-1.50 ng/ml Increased Risk for Adv erse Clinical Events. Evaluation of additional criterion and/or repeat testing in 2-6 hours is suggested to rule out myocardial damage. >= 1.50 ng/ml Indicative of Myocardial Injury. 7 Units are mL/min/1.73 m2 Chronic Kidney Disease Staging per NKF: Stage I & II GFR >=60 Normal to Mildly Decreased Stage III GFR 30-59 Moderately Decreased Stage IV GFR 15-29 Severely Decreased Stage V GFR <15 Very Little GFR Left ESRD GFR <15 on SCREEN TENDER HELPER 8 Y/N query for Sepsis Lactate Rule: Y 9 Negative results do not prec lude influenza or RSV virus infection and should not be used as the sole basis for treatment or other patient management decisions. 10 Negative results do not prec lude influenza or RSV virus infection and should not be used as the sole basis for treatment or other patient management decisions. 11 Negative results do not prec lude influenza or RSV virus infection and should not be used as the sole basis for treatment or other patient management decisions. 12 A false negative result may occur if [...] pathogens. DISCLAIMER: Testing was performed using the [employer] SARS-CoV-2 test. This test was developed and its performance characteristics determined by [employer]. This test has not been FDA cleared [...] the authorization is terminated or revoked sooner. 13 NOTE: diluted and verified 14 Lab Result Notes: Pre-Diabetes 5.7 - 6.4 % Diabetes = or > 6.5% 15 100-125 mg/dL PRE-DIABET ES/FASTING >126 mg/dL DIABETES/FASTING 16 CHRONIC KIDNEY DISEASE STAGI NG PER NKF STAGE I & II GFR >= 60 NORMAL TO MILDLY DECREASED STAGE III GFR 30-59 MODERATELY DECREASED STAGE IV GFR 15-29 SEVERELY DECREASED STAGE V GFR <15 VERY LITTLE GFR LEFT ESRD GFR <15 ON SCREEN TENDER HELPER Procedures Date Code Description Status 02/20/2021 82760 Trans Care SRV W/I 14D Of Adali POTTER mm W/I 2 Dys Med Rec Completed 01/08/2021 88318 Chronic Care MGMT 20 Mins Clinical Staff Time Per Calendar Month Completed 12/31/2020 55313 Office/Outpatient Established Mo d MDM 30-39 Min Completed 12/04/2020 15833 Chronic Care MGMT 20 Mins Clinical Staff Time Per Calendar Month Completed 11/09/2020 65669 Chronic Care MGMT 20 Mins Clinical Staff Time Per Calendar Month Completed 05/09/2020 573914649 Diabetic Retinal Eye Exam Comple bhanu 04/19/2019 316333785 Diabetic Retinal Eye Exam Comple bhanu 04/14/2018 107978759 Diabetic Retinal Eye Exam Comple bhanu 03/27/2017 604420562 Diabetic Retinal Eye Exam Comple bhanu 03/10/2017 030897585 Diabetic Retinal Eye Exam Comple bhanu 05/21/2015 [id number] Mammogram Completed 11/09/2013 686379669 Diabetic Retinal Eye Exam Comple bhanu 03/31/2013 09907764 Mammogram Completed 12/22/2012 [id number] Diabetic Retinal Eye Exam Comple bhanu 11/16/2012 558066796 Diabetic Retinal Eye Exam Comple bhanu 04/08/2012 [id number] Mammogram Completed 07/24/2009 685649144 Bone Mineral Density Test Comple bhanu 11/26/2007 [id number] Mammogram Completed Medical Devices Description No Information Available Encounters Type Date Location Provider Dx Diagnosis Office Visit 02/20/2021 1:40p [facility]CJORI Hauser JR G93.41 Metabolic encephalopathy N39.0 Urinary tract infection, sit e not specified 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 E11.65 Type 2 diabetes mellitus wit h hyperglycemia J44.9 Chronic obstructive pulmonar y disease, unspecified E78.00 Pure hypercholesterolemia, u nspecified Z79.4 care home (current) use of i nsulin Office Visit 12/31/2020 11:40a [facility].Donovan Bills MD J44.9 Chronic obstructive pulmonary disease, u nspecified E78.00 Pure hypercholesterolemia, u nspecified 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 E11.65 Type 2 diabetes mellitus wit h hyperglycemia 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 M15.9 Polyosteoarthritis, unspecif ied F11.20 Opioid dependence, uncomplic ated N28.1 Cyst of kidney, acquired D64.9 Anemia, unspecified Assessments Date Code Description Provider 2021 I10 Essential (primary) hypertension Chevy Bills, 2021 E11.42 Type 2 diabetes mellitus with di abetic polyneuropathy Chevy Bills, 02/20/2021 G93.41 Metabolic encephalopathy JORI López JR [...] unspe cified JORI López JR 02/20/2021 Z79.4 care home (current) use of insul in JORI López [...] hy perglycemia Andrew Bills MD 12/31/2020 Z79.4 care home (current) use of insul in Andrew Bills [...] Bills MD Plan of Treatment Future Appointment(s):* 05/03/2021 2:45 pm - Andrew Bills MD at [facility] 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 TLC discussed. Glycemic index discussed. * Z79.4 care home (current) use of insulin * M15.9 Polyosteoarthritis, unspecified * F11.20 Opioid dependence, uncomplicated * N28.1 Cyst of kidney, acquired * D64.9 Anemia, unspecified Functional Status Description No Information Available Mental Status Description No Information Available Referrals Description No Information Available
--- OUTSIDE RECORDS SUMMARY | 2021-06-09 17:19 | CCD | Continuity of Care Document ---
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 Name Role Phone Andrew Bills JR, MD AUTM Unavailable SheilaCon DO AUTM [phone] [facility] AUTM [phone] [facility] AUTM [phone] Problems Active Problems Provider Date Chronic obstructive [...] MD 08/16/2018 BD Uf Layla Pen Needle [id number] Use as Directed Two Times A Da [...] with meals 45units Adriana Hanks, AROLDO 09/29/2014 Cliq Contour Blood Glucose Test Strips Strips test [...] Times A Day as Needed 30units Adriana aHnks, AROLDO 09/01/2011 Sinus & Allergy 12 Hour [...] CPT Code Status Date Vaccine Lot # [id number] Given 05/22/2020 Influenza Vaccin e Quadrivalent Preser/Antibiotic Free Im Use 553188 U-Flu Given 06/03/2018 Influenza,Unspecified 78042 Given 07/10/2017 Influenza Vaccin e Quadrivalent Preser/Antibiotic Free Im Use 380673 Q2037 Given 06/24/2016 Fluvirin Virus Vaccine 24502 01 96649 Given 09/29/2014 Prevnar 13 [id number] Q2037 Given 05/31/2013 Fluvirin Virus Vaccine 37094 01 Q2037 Given 05/24/2012 Fluvirin Virus Vaccine Q2037 Given 07/07/2011 Fluvirin Virus Vaccine 92583 Given 05/30/2010 Influenza Virus Vaccine 82216 Given 05/17/2009 Influenza Virus Vaccine 67219 Given 07/12/2003 Pneumovax 23 46415 Given 06/22/2003 Influenza Virus Vaccine Vital Signs [...] Result H/L Range Note Microalbumin/Creatinine Urine 05/06/2021 [facility], Die Storage Clerk: [place] [address] [phone] Microalbumin Urine 83.9 mg/L High 1.3 - 20.0 Urine Creatinine 78.3 mg/dL 30.0 - 125.0 Microalb/Creat Ratio 107.2 ug/mg High 0.0 - 30.0 Complete Blood Count 05/03/2021 [facility] Die Storage Clerk: [place] Andrew [place] [address] [phone] WBC 9.1 x10*3/UL 4.1 - 10.9 RBC [...] 5.9 x10*3/UL 2.0 - 7.8 A1c 05/03/2021 [facility] Die Storage Clerk: [place] [address] [phone] Hba1c 8.0 % High <5.7 2 Est Avg Glucose 183 mg/dL High 60 - 110 Comprehensive Chem Profile 05/03/2021 [facility] Die Storage Clerk: [place] [address] [phone] Glucose 167 mg/dL High 74 - 99 [...] >60 4 Total Iron Binding Capacit 04/19/[address] [address] [phone] Iron (Fe) 49 g/dL Low 50-170 Total Iron Binding Capacity 371 g/dL Normal 250-450 Percent Saturation 13.2 % Normal 13.2-45.0 Laboratory test finding 04/19/2021 [facility] [address] [place] [address] [phone] Ferritin 38 NG/ML Normal 8-252 Complete Blood Count 04/19/2021 [facility] Die Storage Clerk: [place] [address] [phone] WBC 9.4 x10*3/UL 4.1 - 10.9 5 [...] 6.9 x10*3/UL 2.0 - 7.8 A1c 2021 [facility] , Die Storage Clerk: Dr Andrew Bills [place], [place] [address]48767 [phone] Hba1c 7.9 % High <5.7 6 Est Avg Glucose 180 mg/dL High 60 - 110 Comprehensive Chem Profile 2021 [facility] Die Storage Clerk: Dr Andrew Bills [place], [place] [id number] [phone] Glucose 92 mg/dL 74 - 99 7 [...] mL/min >60 8 Complete Blood Count 2021 [facility] Die Storage Clerk: [place] [address] [phone] WBC 9.7 x10*3/UL 4.1 - 10.9 9 [...] 2.0 - 7.8 Istat Chem8+ Panel 03/26/2021 [facility] nter [address] [place], [place] [address]4824 [phone] iSTAT HCT 31.0 % Low 38.0-51.0 iSTAT Glucose 244 mg/dL High 70-105 iSTAT Sodium 141 mEq/L Normal 136-145 iSTAT Potassium 4.4 mEq/L Normal 3.5-5.1 iSTAT CA++ 4.8 mg/dL Normal 4.5-5.3 iSTAT Chloride 103 mEq/L Normal 98-109 iSTAT Co2 26.0 MM/L Normal 23.0-27.0 iSTAT BUN 18 mg/dL Normal 8-26 iSTAT Creatinine 0.7 mg/dL Normal 0.6-1.3 Laboratory test finding 02/05/[address] [address] [phone] Bedside Glucose 274 mg/dL High 83-110 Ua W/ Reflex To Culture 02/05/[address] [address] [phone] Appearance, Urine RFX TURBID High Clear Color, Urine RFX YELLOW Normal Yellow PH,Urine RFX 5.0 units Normal 5.0-9.0 Specific Frederic Ur Auto RFX 1.014 Normal 1.002-1.035 Protein, [...] /LPF Normal 0-1 Laboratory test finding 02/05/[address] [address] [phone] Thyroid Stimulating Hormone 2.130 uIU/ML Normal 0. 358-3.740 Basic Metabolic Profile 02/05/[address] [address] [phone] Glucose, Fasting 269 mg/dL High 70-100 Blood [...] 9.8 mg/dL Normal 8.8-10.2 Liver Profile 02/05/2021 [facility] nter [address] [place] [address] [phone] Ast/Sgot 21 U/L Normal 7-37 Alt/SGPT 24 U/L Normal 12-78 Alkaline Phosphatase 148 U/L High 45-117 Bilirubin,Total 0.8 mg/dL Normal 0.2-1.0 Bilirubin,Direct 0.2 mg/dL Normal 0.0-0.2 Total Protein 8.9 GM/DL High 6.4-8.2 Albumin 3.9 GM/DL Normal 3.2-5.2 Albumin/Globulin Ratio 0.8 Low 1.2-2.2 Cardiac Marker Panel 02/05/2021 [facility] enter [address] [place] [address] [phone] CPK Creatine Phosphokinase 145 U/L Normal 26-19 2 CK-MB Value Mass 1.9 NG/ML Normal <3.6 MB/CK Relative Index 1.31 Normal < Or =4 11 Troponin I < 0.02 NG/ML Normal < 0.10 12 CBC With Differential 02/05/2021 [place] [address] [place] [address] [phone] White Blood Count 11.5 10 High 4.0-10.0 [...] 36.0-66.0 Lymph % 20.2 % Low 24.0-44.0 Saline % 11.8 % High 2.0-8.0 Eos % 0.6 % Normal 0.0-3.0 Baso % 0.8 % Normal 0.0-1.0 Immature Granulocyte % 0.4 % Normal 0-3.0 Nucleated Red Blood Cell % 0.0 % Normal 0-0 Neutrophils # 7.6 10 Normal 1.5-8.5 Lymph # 2.3 10 Normal 1.5-5.0 Saline # 1.4 10 High 0.0-0.8 Eos # 0.1 10 Normal 0.0-0.5 Baso # 0.1 10 Normal 0.0-0.2 Laboratory test finding 02/05/2021 [facility] [address] [place] [id number] [phone] Lactic Acid Sepsis Protocol 1.5 mmol/L Normal 0.4- 2.0 13 Influenza A/B RSV Covid Amp 02/05/2021 [place] [id number] [phone] Influenza A Amplification NEGATIVE Normal Negati ve 14 Influenza B Amplification NEGATIVE Normal Negative 15 RSV Amplification NEGATIVE Normal Negative 16 Sars Covid-19 Amplification NEGATIVE Normal Negative 17 Laboratory test finding 02/05/2021 [facility] [address] [place] [address] [phone] Ammonia 13 uMOL/L Normal <32 Venous Blood Gas 02/05/2021 [facility] nter [address] [place] [address] [phone] Venous PH 7.324 units Low 7.330-7.430 Venous Partial Pressure Co2 47.1 mmHg Normal 38.0-50.0 Venous Partial Pressure O2 40.3 mmHg Normal 30.0-50.0 Venous Total Co2 25.4 mEq/L Normal 24.0-28.0 Venous Hco3 23.9 mEq/L Normal 23.0-27.0 Venous Base Excess -2.3 Low -2.0-2.0 Venous Standard Hco3 22.0 mEq/L Normal Venous O2 Saturation 71.9 % Normal 60.0-80.0 Microalbumin/Creatinine Urine 01/02/2021 [facility] Die Storage Clerk: [place] [address] [phone] Microalbumin Urine 281.2 mg/L High 1.3 - 20.0 18 Urine Creatinine 265.8 mg/dL High 30.0 - 125.0 Microalb/Creat Ratio 105.8 ug/mg High 0.0 - 30.0 Total Iron Binding Capacit 12/31/2020 [facility] [address] [place] [address] [phone] Iron (Fe) 40 g/dL Low 50-170 Total Iron Binding Capacity 392 g/dL Normal 250-450 Percent Saturation 10.2 % Low 13.2-45.0 Complete Blood Count 12/31/2020 [facility] Die Storage Clerk: [place] [address] [phone] WBC 11.7 x10*3/UL High 4.1 - 10.9 [...] x10*3/UL High 2.0 - 7.8 A1c 12/31/2020 [facility] Die Storage Clerk: [place] [address] [phone] Hba1c 7.5 % High <5.7 19 Est Avg Glucose 169 mg/dL High 60 - 110 Basic Metabolic Panel 12/31/2020 [facility] Die Storage Clerk: [place] [address] [phone] Glucose 119 mg/dL High 74 - 99 [...] LITTLE GFR LEFT ESRD GFR <15 ON QUILL REAMER 5 NOTE: CBC VERIFIED 6 Lab Result [...] LITTLE GFR LEFT ESRD GFR <15 ON QUILL REAMER 9 NOTE: CBC VERIFIED 10 Units are mL/min/1.73 m2 Chronic Kidney Disease Staging per NKF: Stage I & II GFR >=60 Normal to Mildly Decreased Stage III GFR 30-59 Moderately Decreased Stage IV GFR 15-29 Severely Decreased Stage V GFR <15 Very Little GFR Left ESRD GFR <15 on QUILL REAMER 11 DIAGNOSIS CRITERIA MMB ng/ml Relative Index (RI) NON-AMI < or = 5 N/A OSULLIVAN ZONE > 5 < or = 4 AMI > 5 > 4 12 Troponin I Reference Interva l for Shoulder Tap LOCI: 99th Percentile= 0.00-0.045 ng/ml Risk Stratification: [...] pathogens. DISCLAIMER: Testing was performed using the [facility] SARS-CoV-2 test. This test was developed and its performance characteristics determined by [facility]. This test has not been FDA cleared [...] LITTLE GFR LEFT ESRD GFR <15 ON QUILL REAMER Procedures Date Code Description Status 05/03/2021 31039 Office/Outpatient Established Mo d MDM 30-39 Min Completed 02/20/2021 45613 Trans Care SRV W/I 14D Of DC, Co mm W/I 2 Dys Med Rec Completed 01/08/2021 69616 Chronic Care MGMT 20 Mins Clinical Staff Time Per Calendar Month Completed 12/31/2020 56700 Office/Outpatient Established Mo d MDM 30-39 Min Completed 12/04/2020 95394 Chronic Care MGMT 20 Mins Clinical Staff Time Per Calendar Month Completed 11/09/2020 01462 Chronic Care MGMT 20 Mins Clinical Staff Time Per Calendar Month Completed 05/09/2020 [id number] Diabetic Retinal Eye Exam Comple bhanu 04/19/2019 [id number] Diabetic Retinal Eye Exam Comple bhanu 04/14/2018 [id number] Diabetic Retinal Eye Exam Comple bhanu 03/27/2017 [id number] Diabetic Retinal Eye Exam Comple bhanu 03/10/2017 [id number] Diabetic Retinal Eye Exam Comple bhanu 05/21/2015 [id number] Mammogram Completed 11/09/2013 520083859 Diabetic Retinal Eye Exam Comple bhanu 03/31/2013 [id number] Mammogram Completed 12/22/2012 656605984 Diabetic Retinal Eye Exam Comple bhanu 11/16/2012 [id number] Diabetic Retinal Eye Exam Comple bhanu 04/08/2012 [id number] Mammogram Completed 07/24/2009 [id number] Bone Mineral Density Test Comple bhanu 11/26/2007 [id number] Mammogram Completed Medical Devices Description No Information Available Encounters Type Date Location Provider Dx Diagnosis Office Visit 05/03/2021 2:45p [facility] P[facility]nieCAnnie Bills MD I10 Essential (primary) hypertension 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 E11.649 Type 2 diabetes mellitus wit h hypoglycemia without coma 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 E78.00 Pure hypercholesterolemia, u nspecified J44.9 Chronic obstructive pulmonar y disease, unspecified N28.1 Cyst of kidney, acquired D64.9 Anemia, unspecified Office Visit 02/20/2021 1:40p [facility], P.C[facility]ORI Hauser JR G93.41 Metabolic encephalopathy N39.0 Urinary tract infection, sit e not specified 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 * 06/03/2021 1:15 pm - Nurse Schedule at [facility] 05/03/2021 - Andrew Bills MD* I10 Essential (primary) hypertension* Comments:* Hypertension at [facility]-8 guidelines * E11.42 Type 2 diabetes mellitus with diabetic polyneuropathy * E11.649 Type 2 diabetes mellitus with hypoglycemia without coma * Z79.4 lobsterman (current) use of insulin * E78.00 Pure hypercholesterolemia, unspecified * J44.9 Chronic obstructive pulmonary disease, unspecified * N28.1 Cyst of kidney, acquired * D64.9 Anemia, unspecified Functional Status Description No Information Available Mental Status Description No Information Available Referrals Description No Information Available
--- OUTSIDE RECORDS SUMMARY | 2021-06-09 17:19 | CCD | Continuity of Care Document ---
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 Name Role Phone Andrew Bills JR, MD AUTM Unavailable SheilaCon lam DO AUTM [phone] [facility] AUTM [phone] [facility] AUTM [phone] Problems Active Problems Provider Date Chronic obstructive [...] MD 08/16/2018 BD Uf Layla Pen Needle [id number] Use as Directed Two Times A Da [...] CPT Code Status Date Vaccine Lot # [id number] Given 05/22/2020 Influenza Vaccin e Quadrivalent Preser/Antibiotic Free Im Use [id number] U-Flu Given 06/03/2018 Influenza,Unspecified 95876 Given 07/10/2017 Influenza Vaccin e Quadrivalent Preser/Antibiotic Free Im Use 701009 Q2037 Given 06/24/2016 Fluvirin Virus Vaccine 94011 01 92182 Given 09/29/2014 Prevnar 13 [id number] Q2037 Given 05/31/2013 Fluvirin Virus Vaccine 77422 01 Q2037 Given 05/24/2012 Fluvirin Virus Vaccine Q2037 Given 07/07/2011 Fluvirin Virus Vaccine 64588 Given 05/30/2010 Influenza Virus Vaccine 82685 Given 05/17/2009 Influenza Virus Vaccine 81616 Given 07/12/2003 Pneumovax 23 59929 Given 06/22/2003 Influenza Virus Vaccine Vital Signs [...] Test Result H/L Range Note A1c 05/03/2021 [facility] , Manager Php: [place] [address] [phone] Hba1c 8.0 % High <5.7 1 Est Avg Glucose 183 mg/dL High 60 - 110 Comprehensive Chem Profile 05/03/2021 [facility], Manager Php: Dr Andrew Bills [place], [place] [address]0225 [phone] Glucose 167 mg/dL High 74 - 99 [...] mL/min >60 3 Complete Blood Count 05/03/2021 [facility] Manager Php: Dr Andrew Bills [place], [place] 8528497 [phone] WBC 9.1 x10*3/UL 4.1 - 10.9 RBC [...] - 7.8 Total Iron Binding Capacit 04/19/[address] [address] [phone] Iron (Fe) 49 g/dL Low 50-170 Total Iron Binding Capacity 371 g/dL Normal 250-450 Percent Saturation 13.2 % Normal 13.2-45.0 Laboratory test finding 04/19/2021 [facility] [address] [place] [address] [phone] Ferritin 38 NG/ML Normal 8-252 Complete Blood Count 04/19/2021 [facility] Manager Php: [place] [address] [phone] WBC 9.4 x10*3/UL 4.1 - 10.9 5 [...] 2.0 - 7.8 Complete Blood Count 2021 [facility] Manager Php: [place] [address] [phone] WBC 9.7 x10*3/UL 4.1 - 10.9 6 [...] 7.0 x10*3/UL 2.0 - 7.8 A1c 2021 [facility] , Manager Php: [place] [address] [phone] Hba1c 7.9 % High <5.7 7 Est Avg Glucose 180 mg/dL High 60 - 110 Comprehensive Chem Profile 2021 [facility] Manager Php: [place] [address] [phone] Glucose 92 mg/dL 74 - 99 8 [...] mL/min >60 9 Istat Chem8+ Panel 03/26/2021 [facility] nter [address] [place] [address] [phone] iSTAT HCT 31.0 % Low 38.0-51.0 iSTAT Glucose 244 mg/dL High 70-105 iSTAT Sodium 141 mEq/L Normal 136-145 iSTAT Potassium 4.4 mEq/L Normal 3.5-5.1 iSTAT CA++ 4.8 mg/dL Normal 4.5-5.3 iSTAT Chloride 103 mEq/L Normal 98-109 iSTAT Co2 26.0 MM/L Normal 23.0-27.0 iSTAT BUN 18 mg/dL Normal 8-26 iSTAT Creatinine 0.7 mg/dL Normal 0.6-1.3 Laboratory test finding 02/05/2021 [facility] [address] [place] [address] [phone] Bedside Glucose 274 mg/dL High 83-110 Ua W/ Reflex To Culture 02/05/2021 [facility] [address] [place] [address] [phone] Appearance, Urine RFX TURBID High Clear Color, Urine RFX YELLOW Normal Yellow PH,Urine RFX 5.0 units Normal 5.0-9.0 Specific Chester Ur Auto RFX 1.014 Normal 1.002-1.035 Protein, [...] /LPF Normal 0-1 Laboratory test finding 02/05/[address] [address] [phone] Thyroid Stimulating Hormone 2.130 uIU/ML Normal 0. 358-3.740 Basic Metabolic Profile 02/05/[address] [address] [phone] Glucose, Fasting 269 mg/dL High 70-100 Blood [...] 9.8 mg/dL Normal 8.8-10.2 Liver Profile 02/05/2021 [facility] nter [address] [place] [address] [phone] Ast/Sgot 21 U/L Normal 7-37 Alt/SGPT 24 U/L Normal 12-78 Alkaline Phosphatase 148 U/L High 45-117 Bilirubin,Total 0.8 mg/dL Normal 0.2-1.0 Bilirubin,Direct 0.2 mg/dL Normal 0.0-0.2 Total Protein 8.9 GM/DL High 6.4-8.2 Albumin 3.9 GM/DL Normal 3.2-5.2 Albumin/Globulin Ratio 0.8 Low 1.2-2.2 Cardiac Marker Panel 02/05/2021 [facility] enter [address] [place] [address] [phone] CPK Creatine Phosphokinase 145 U/L Normal 26-19 2 CK-MB Value Mass 1.9 NG/ML Normal <3.6 MB/CK Relative Index 1.31 Normal < Or =4 11 Troponin I < 0.02 NG/ML Normal < 0.10 12 CBC With Differential 02/05/[address] [address] [phone] White Blood Count 11.5 10 High 4.0-10.0 [...] 36.0-66.0 Lymph % 20.2 % Low 24.0-44.0 Holt % 11.8 % High 2.0-8.0 Eos % 0.6 % Normal 0.0-3.0 Baso % 0.8 % Normal 0.0-1.0 Immature Granulocyte % 0.4 % Normal 0-3.0 Nucleated Red Blood Cell % 0.0 % Normal 0-0 Neutrophils # 7.6 10 Normal 1.5-8.5 Lymph # 2.3 10 Normal 1.5-5.0 Holt # 1.4 10 High 0.0-0.8 Eos # 0.1 10 Normal 0.0-0.5 Baso # 0.1 10 Normal 0.0-0.2 Laboratory test finding 02/05/2021 [facility] [address] [place] [address] [phone] Lactic Acid Sepsis Protocol 1.5 mmol/L Normal 0.4- 2.0 13 Influenza A/B RSV Covid Amp 02/05/2021 [facility] [address] [place] [address] [phone] Influenza A Amplification NEGATIVE Normal Negati ve 14 Influenza B Amplification NEGATIVE Normal Negative 15 RSV Amplification NEGATIVE Normal Negative 16 Sars Covid-19 Amplification NEGATIVE Normal Negative 17 Laboratory test finding 02/05/2021 [facility] [address] [place] [address] [phone] Ammonia 13 uMOL/L Normal <32 Venous Blood Gas 02/05/2021 [facility] nter [address] [place] [address] [phone] Venous PH 7.324 units Low 7.330-7.430 Venous Partial Pressure Co2 47.1 mmHg Normal 38.0-50.0 Venous Partial Pressure O2 40.3 mmHg Normal 30.0-50.0 Venous Total Co2 25.4 mEq/L Normal 24.0-28.0 Venous Hco3 23.9 mEq/L Normal 23.0-27.0 Venous Base Excess -2.3 Low -2.0-2.0 Venous Standard Hco3 22.0 mEq/L Normal Venous O2 Saturation 71.9 % Normal 60.0-80.0 Microalbumin/Creatinine Urine 01/02/2021 [facility], [facility] Manager Php: Dr Andrew Bills [place] 0[address] [phone] Microalbumin Urine 281.2 mg/L High 1.3 - 20.0 18 Urine Creatinine 265.8 mg/dL High 30.0 - 125.0 Microalb/Creat Ratio 105.8 ug/mg High 0.0 - 30.0 Total Iron Binding Capacit 12/31/2020 [facility] [address] [place] [address] [phone] Iron (Fe) 40 g/dL Low 50-170 Total Iron Binding Capacity 392 g/dL Normal 250-450 Percent Saturation 10.2 % Low 13.2-45.0 Complete Blood Count 12/31/2020 [facility] Manager Php: [place] [address] [phone] WBC 11.7 x10*3/UL High 4.1 - 10.9 [...] x10*3/UL High 2.0 - 7.8 A1c 12/31/2020 [facility] Manager Php: [place] [address] [phone] Hba1c 7.5 % High <5.7 19 Est Avg Glucose 169 mg/dL High 60 - 110 Basic Metabolic Panel 12/31/2020 [facility] Manager Php: [place] [address] [phone] Glucose 119 mg/dL High 74 - 99 [...] LITTLE GFR LEFT ESRD GFR <15 ON SPRING FITTER HELPER 4 NOTE: RESULT VERIFIED. 5 NOTE: CBC [...] LITTLE GFR LEFT ESRD GFR <15 ON SPRING FITTER HELPER 10 Units are mL/min/1.73 m2 Chronic Kidney Disease Staging per NKF: Stage I & II GFR >=60 Normal to Mildly Decreased Stage III GFR 30-59 Moderately Decreased Stage IV GFR 15-29 Severely Decreased Stage V GFR <15 Very Little GFR Left ESRD GFR <15 on SPRING FITTER HELPER 11 DIAGNOSIS CRITERIA MMB ng/ml Relative Index (RI) NON-AMI < or = 5 N/A OSULLIVAN ZONE > 5 < or = 4 AMI > 5 > 4 12 Troponin I Reference Interva l for Rawporter LOCI: 99th Percentile= 0.00-0.045 ng/ml Risk Stratification: [...] pathogens. DISCLAIMER: Testing was performed using the [employer] SARS-CoV-2 test. This test was developed and its performance characteristics determined by [employer]. This test has not been FDA cleared [...] LITTLE GFR LEFT ESRD GFR <15 ON SPRING FITTER HELPER Procedures Date Code Description Status 02/20/2021 50803 Trans Care SRV W/I 14D Of Adali POTTER mm W/I 2 Dys Med Rec Completed 01/08/2021 42428 Chronic Care MGMT 20 Mins Clinical Staff Time Per Calendar Month Completed 12/31/2020 43194 Office/Outpatient Established Mo d MDM 30-39 Min Completed 12/04/2020 38498 Chronic Care MGMT 20 Mins Clinical Staff Time Per Calendar Month Completed 11/09/2020 16478 Chronic Care MGMT 20 Mins Clinical Staff Time Per Calendar Month Completed 05/09/2020 [id number] Diabetic Retinal Eye Exam Comple bhanu 04/19/2019 [id number] Diabetic Retinal Eye Exam Comple bhanu 04/14/2018 172094364 Diabetic Retinal Eye Exam Comple bhanu 03/27/2017 314845079 Diabetic Retinal Eye Exam Comple bhanu 03/10/2017 872312640 Diabetic Retinal Eye Exam Comple bhanu 05/21/2015 [id number] Mammogram Completed 11/09/2013 [id number] Diabetic Retinal Eye Exam Comple bhanu 03/31/2013 [id number] Mammogram Completed 12/22/2012 378032574 Diabetic Retinal Eye Exam Comple bhanu 11/16/2012 188192620 Diabetic Retinal Eye Exam Comple bhanu 04/08/2012 [id number] Mammogram Completed 07/24/2009 642841558 Bone Mineral Density Test Comple bhanu 11/26/2007 [id number] Mammogram Completed Medical Devices Description No Information Available Encounters Type Date Location Provider Dx Diagnosis Office Visit 02/20/2021 1:40p [facility] G93.41 Metabolic encephalopathy N39.0 Urinary tract infection, sit e not specified 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 E11.65 Type 2 diabetes mellitus wit h hyperglycemia J44.9 Chronic obstructive pulmonar y disease, unspecified E78.00 Pure hypercholesterolemia, u nspecified 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 Office Visit 12/31/2020 11:40a [facility] MD J44.9 Chronic obstructive pulmonary disease, u nspecified E78.00 Pure hypercholesterolemia, u nspecified 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 E11.65 Type 2 diabetes mellitus wit h hyperglycemia Z79.4 senior care (current) use of i nsulin M15.9 Polyosteoarthritis, unspecif ied F11.20 Opioid dependence, uncomplic ated N28.1 Cyst of kidney, acquired D64.9 Anemia, unspecified Assessments Date Code Description Provider 2021 I10 Essential (primary) hypertension Chevy Bills, 2021 E11.42 Type 2 diabetes mellitus with di abetic polyneuropathy Chevy Bills, DO 02/20/2021 G93.41 Metabolic encephalopathy Yovani J Pickeral JR, PA 02/20/2021 N39.0 Urinary tract infection, site no t specified JORI López JR 02/20/2021 E11.42 Type 2 diabetes mellitus with di abetic polyneuropathy Yovani Sanchez JR, JORI 02/20/2021 E11.65 Type 2 diabetes mellitus with hy perglycemia JORI López JR 02/20/2021 J44.9 Chronic obstructive pulmonary di sease, unspecified JORI López JR 02/20/2021 E78.00 Pure hypercholesterolemia, unspe cified JORI López JR 02/20/2021 Z79.4 senior care (current) use of insul in JORI López [...] hy perglycemia Andrew Bills MD 12/31/2020 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
--- OUTSIDE RECORDS SUMMARY | 2021-06-09 17:19 | CCD | Continuity of Care Document ---
Author Author Meka Bills MD Organization Unknown Address [address] [facility] [address] [place] [address] Phone [phone] Care Team Providers Care Worm Picker Name Role Phone Andrew Bills JR, MD AUTM Unavailable SheilaCon DO AUTM [phone] [facility] AUTM [phone] [facility] AUTM [phone] Problems Active Problems Provider Date Chronic obstructive [...] MD 08/16/2018 BD Uf Layla Pen Needle [id number] Use as Directed Two Times A Da [...] times daily with meals 45units Adriana Hanks, ANP 09/29/2014 BD Pen Needle/Layla/Ultra Fine/32G X 4mm [...] Capsule By Mouth Every Day 90caps Liz Taylor, 11/29/2012 Triamcinolone Acetonide 0.1% Cream Apply To Affected Area(S) Three Times A Day as Needed 30units AROLDO Siu 09/01/2011 Sinus & Allergy 12 Hour 120mg [...] MD 06/24/2016 Administration Of Flu Vaccine Inj yoelion AROLDO Siu 05/31/2013 Administration Of Flu Vaccine Inj dayan Bills MD 05/24/2012 Administration Of Flu Vaccine Inj yoelion Andrew Bills MD 07/07/2011 Administration Of Flu Vaccine Inj dayan Bills MD 05/30/2010 Administration Of Flu Vaccine Inj dayan Bills MD 05/17/2009 Administration Of Flu Vaccine Inj yoelion Surekha Fontanez FNP 06/22/2003 Immunizations CPT Code Status Date Vaccine Lot # [id number] Given 05/22/2020 Influenza Vaccin e Quadrivalent Preser/Antibiotic Free Im Use [id number] U-Flu Given 06/03/2018 Influenza,Unspecified 53797 Given 07/10/2017 Influenza Vaccin e Quadrivalent Preser/Antibiotic Free Im Use [id number] Q2037 Given 06/24/2016 Fluvirin Virus Vaccine 25188 01 09274 Given 09/29/2014 Prevnar 13 [id number] Q2037 Given 05/31/2013 Fluvirin Virus Vaccine 49764 01 Q2037 Given 05/24/2012 Fluvirin Virus Vaccine Q2037 Given 07/07/2011 Fluvirin Virus Vaccine 71074 Given 05/30/2010 Influenza Virus Vaccine 81467 Given 05/17/2009 Influenza Virus Vaccine 16801 Given 07/12/2003 Pneumovax 23 90361 Given 06/22/2003 Influenza Virus Vaccine Vital Signs [...] Date Facility Test Result H/L Range Note Laboratory test finding 05/03/2021 [facility] Inventory Administrator: Dr Andrew Bills [place], [place] [address] [phone] A1c <pending> Total Iron Binding Capacit 04/19/2021 [facility] [address] [place], [place] [id number] [phone] Iron (Fe) 49 g/dL Low 50-170 Total Iron Binding Capacity 371 g/dL Normal 250-450 Percent Saturation 13.2 % Normal 13.2-45.0 Laboratory test finding 04/19/2021 [facility] [address] [place] [address] [phone] Ferritin 38 NG/ML Normal 8-252 Complete Blood Count 04/19/2021 [facility] Inventory Administrator: [place] [address] [phone] WBC 9.4 x10*3/UL 4.1 - 10.9 1 RBC 3.49 x10*6/UL Low 4.20 - 6.30 [...] 2.0 - 7.8 Complete Blood Count 2021 [facility] Inventory Administrator: [place] [address] [phone] WBC 9.7 x10*3/UL 4.1 - 10.9 2 RBC 3.27 x10*6/UL Low 4.20 - 6.30 [...] 7.0 x10*3/UL 2.0 - 7.8 A1c 2021 [facility] , Inventory Administrator: [place] [address] [phone] Hba1c 7.9 % High <5.7 3 Est Avg Glucose 180 mg/dL High 60 - 110 Comprehensive Chem Profile 2021 [facility], Inventory Administrator: [place] [address] [phone] Glucose 92 mg/dL 74 - 99 4 BUN 20 mg/dL High 7 - 18 [...] Low >60 GFR >= 60 mL/min >60 5 Istat Chem8+ Panel 03/26/2021 [facility] [address] [place] [address] [phone] iSTAT HCT 31.0 % Low 38.0-51.0 iSTAT Glucose 244 mg/dL High 70-105 iSTAT Sodium 141 mEq/L Normal 136-145 iSTAT Potassium 4.4 mEq/L Normal 3.5-5.1 iSTAT CA++ 4.8 mg/dL Normal 4.5-5.3 iSTAT Chloride 103 mEq/L Normal 98-109 iSTAT Co2 26.0 MM/L Normal 23.0-27.0 iSTAT BUN 18 mg/dL Normal 8-26 iSTAT Creatinine 0.7 mg/dL Normal 0.6-1.3 Laboratory test finding 02/05/[address] [address] [phone] Bedside Glucose 274 mg/dL High 83-110 Ua W/ Reflex To Culture 02/05/[address] [address] [phone] Appearance, Urine RFX TURBID High Clear Color, Urine RFX YELLOW Normal Yellow PH,Urine RFX 5.0 units Normal 5.0-9.0 Specific [place] [facility] Auto RFX 1.014 Normal 1.002-1.035 Protein, [...] /LPF Normal 0-1 Laboratory test finding 02/05/[address] [address] [phone] Thyroid Stimulating Hormone 2.130 uIU/ML Normal 0. 358-3.740 Basic Metabolic Profile 02/05/[address] [address] [phone] Glucose, Fasting 269 mg/dL High 70-100 Blood Urea Nitrogen 22 mg/dL High 7-18 Creatinine For GFR 0.90 mg/dL Normal 0.55-1.30 Glomerular Filtration Rate > 60.0 Normal >32 6 Sodium Level 134 mEq/L Low 136-145 Potassium Serum 4.6 mEq/L Normal 3.5-5.1 Chloride Level 103 mEq/L Normal 98-107 Carbon Dioxide Level 23 mEq/L Normal 21-32 Anion Gap 8 mEq/L Normal 8-16 Calcium Level 9.8 mg/dL Normal 8.8-10.2 Liver Profile 02/05/2021 [facility] [address] [place] [address] [phone] Ast/Sgot 21 U/L Normal 7-37 Alt/SGPT 24 U/L Normal 12-78 Alkaline Phosphatase 148 U/L High 45-117 Bilirubin,Total 0.8 mg/dL Normal 0.2-1.0 Bilirubin,Direct 0.2 mg/dL Normal 0.0-0.2 Total Protein 8.9 GM/DL High 6.4-8.2 Albumin 3.9 GM/DL Normal 3.2-5.2 Albumin/Globulin Ratio 0.8 Low 1.2-2.2 Cardiac Marker Panel 02/05/2021 [place] [id number] [phone] CPK Creatine Phosphokinase 145 U/L Normal 26-19 2 CK-MB Value Mass 1.9 NG/ML Normal <3.6 MB/CK Relative Index 1.31 Normal < Or =4 7 Troponin I < 0.02 NG/ML Normal < 0.10 8 CBC With Differential 02/05/[address] [address] [phone] White Blood Count 11.5 10 High 4.0-10.0 [...] 36.0-66.0 Lymph % 20.2 % Low 24.0-44.0 Evangeline % 11.8 % High 2.0-8.0 Eos % 0.6 % Normal 0.0-3.0 Baso % 0.8 % Normal 0.0-1.0 Immature Granulocyte % 0.4 % Normal 0-3.0 Nucleated Red Blood Cell % 0.0 % Normal 0-0 Neutrophils # 7.6 10 Normal 1.5-8.5 Lymph # 2.3 10 Normal 1.5-5.0 Evangeline # 1.4 10 High 0.0-0.8 Eos # 0.1 10 Normal 0.0-0.5 Baso # 0.1 10 Normal 0.0-0.2 Laboratory test finding 02/05/[address] [address] [phone] Lactic Acid Sepsis Protocol 1.5 mmol/L Normal 0.4- 2.0 9 Influenza A/B RSV Covid Amp 02/05/2021 [facility] [address] [place] [address] [phone] Influenza A Amplification NEGATIVE Normal Negati ve 10 Influenza B Amplification NEGATIVE Normal Negative 11 RSV Amplification NEGATIVE Normal Negative 12 Sars Covid-19 Amplification NEGATIVE Normal Negative 13 Laboratory test finding 02/05/2021 [facility] [address] [place] [address] [phone] Ammonia 13 uMOL/L Normal <32 Venous Blood Gas 02/05/2021 [facility] [address] [place] [address] [phone] Venous PH 7.324 units Low 7.330-7.430 Venous Partial Pressure Co2 47.1 mmHg Normal 38.0-50.0 Venous Partial Pressure O2 40.3 mmHg Normal 30.0-50.0 Venous Total Co2 25.4 mEq/L Normal 24.0-28.0 Venous Hco3 23.9 mEq/L Normal 23.0-27.0 Venous Base Excess -2.3 Low -2.0-2.0 Venous Standard Hco3 22.0 mEq/L Normal Venous O2 Saturation 71.9 % Normal 60.0-80.0 Microalbumin/Creatinine Urine 01/02/2021 [facility] Inventory Administrator: [place] [address] [phone] Microalbumin Urine 281.2 mg/L High 1.3 - 20.0 14 Urine Creatinine 265.8 mg/dL High 30.0 - 125.0 Microalb/Creat Ratio 105.8 ug/mg High 0.0 - 30.0 Total Iron Binding Capacit 12/31/[address] [address] [phone] Iron (Fe) 40 g/dL Low 50-170 Total Iron Binding Capacity 392 g/dL Normal 250-450 Percent Saturation 10.2 % Low 13.2-45.0 Complete Blood Count 12/31/2020 [facility] Inventory Administrator: Dr Andrew Bills [place], [place] [id number] [phone] WBC 11.7 x10*3/UL High 4.1 - 10.9 [...] x10*3/UL High 2.0 - 7.8 A1c 12/31/2020 [facility] Inventory Administrator: [place] [address] [phone] Hba1c 7.5 % High <5.7 15 Est Avg Glucose 169 mg/dL High 60 - 110 Basic Metabolic Panel 12/31/2020 [facility] Inventory Administrator: [place] [address] [phone] Glucose 119 mg/dL High 74 - 99 16 BUN 30 mg/dL High 7 - 18 Creatinine 1.1 mg/dL 0.6 - 1.3 Sodium 143 mEq/L 136 - 145 Potassium 4.6 mEq/L 3.5 - 5.1 Chloride 108 mEq/L High 98 - 107 Carbon Dioxide 23 mEq/L 21 - 32 Calcium 8.9 mg/dL 8.5 - 10.1 GFR 48 mL/min Low >60 GFR 58 mL/min Low >60 17 1 NOTE: CBC VERIFIED 2 NOTE: CBC VERIFIED 3 Lab Result Notes: Pre-Diabetes 5.7 - 6.4 % Diabetes = or > 6.5% 4 100-125 mg/dL PRE-DIABET ES/FASTING >126 mg/dL DIABETES/FASTING 5 CHRONIC KIDNEY DISEASE STAGI NG PER NKF STAGE I & II GFR >= 60 NORMAL TO MILDLY DECREASED STAGE III GFR 30-59 MODERATELY DECREASED STAGE IV GFR 15-29 SEVERELY DECREASED STAGE V GFR <15 VERY LITTLE GFR LEFT ESRD GFR <15 ON VERTICAL CONTOUR BAND SAW OPERATOR 6 Units are mL/min/1.73 m2 Chronic Kidney Disease Staging per NKF: Stage I & II GFR >=60 Normal to Mildly Decreased Stage III GFR 30-59 Moderately Decreased Stage IV GFR 15-29 Severely Decreased Stage V GFR <15 Very Little GFR Left ESRD GFR <15 on VERTICAL CONTOUR BAND SAW OPERATOR 7 DIAGNOSIS CRITERIA MMB ng/ml Relative Index (RI) NON-AMI < or = 5 N/A OSULLIVAN ZONE > 5 < or = 4 AMI > 5 > 4 8 Troponin I Reference Interva l for [employer] LOCI: 99th Percentile= 0.00-0.045 ng/ml Risk Stratification: <= 0.10 ng/ml Decreased Risk for Adverse Clinical Events. 0.10-1.50 ng/ml Increased Risk for Adv erse Clinical Events. Evaluation of additional criterion and/or repeat testing in 2-6 hours is suggested to rule out myocardial damage. >= 1.50 ng/ml Indicative of Myocardial Injury. 9 Y/N query for Sepsis Lactate Rule: Y 10 Negative results do not prec lude influenza or RSV virus infection and should not be used as the sole basis for treatment or other patient management decisions. 11 Negative results do not prec lude influenza or RSV virus infection and should not be used as the sole basis for treatment or other patient management decisions. 12 Negative results do not prec lude influenza or RSV virus infection and should not be used as the sole basis for treatment or other patient management decisions. 13 A false negative result may occur if [...] pathogens. DISCLAIMER: Testing was performed using the [employer] SARS-CoV-2 test. This test was developed and its performance characteristics determined by [employer]. This test has not been FDA cleared [...] the authorization is terminated or revoked sooner. 14 NOTE: diluted and verified 15 Lab Result Notes: Pre-Diabetes 5.7 - 6.4 % Diabetes = or > 6.5% 16 100-125 mg/dL PRE-DIABET ES/FASTING >126 mg/dL DIABETES/FASTING 17 CHRONIC KIDNEY DISEASE STAGI NG PER NKF STAGE I & II GFR >= 60 NORMAL TO MILDLY DECREASED STAGE III GFR 30-59 MODERATELY DECREASED STAGE IV GFR 15-29 SEVERELY DECREASED STAGE V GFR <15 VERY LITTLE GFR LEFT ESRD GFR <15 ON VERTICAL CONTOUR BAND SAW OPERATOR Procedures Date Code Description Status 02/20/2021 90077 Trans Care SRV W/I 14D Of Adali POTTER mm W/I 2 Dys Med Rec Completed 01/08/2021 61371 Chronic Care MGMT 20 Mins Clinical Staff Time Per Calendar Month Completed 12/31/2020 31269 Office/Outpatient Established Mo d MDM 30-39 Min Completed 12/04/2020 61947 Chronic Care MGMT 20 Mins Clinical Staff Time Per Calendar Month Completed 11/09/2020 37577 Chronic Care MGMT 20 Mins Clinical Staff Time Per Calendar Month Completed 05/09/2020 [id number] Diabetic Retinal Eye Exam Comple bhanu 04/19/2019 [id number] Diabetic Retinal Eye Exam Comple bhanu 04/14/2018 [id number] Diabetic Retinal Eye Exam Comple bhanu 03/27/2017 [id number] Diabetic Retinal Eye Exam Comple bhanu 03/10/2017 [id number] Diabetic Retinal Eye Exam Comple bhanu 05/21/2015 [id number] Mammogram Completed 11/09/2013 [id number] Diabetic Retinal Eye Exam Comple bhanu 03/31/2013 [id number] Mammogram Completed 12/22/2012 [id number] Diabetic Retinal Eye Exam Comple bhanu 11/16/2012 [id number] Diabetic Retinal Eye Exam Comple bhanu 04/08/2012 [id number] Mammogram Completed 07/24/2009 [id number] Bone Mineral Density Test Comple bhanu 11/26/2007 [id number] Mammogram Completed Medical Devices Description No Information Available Encounters Type Date Location Provider Dx Diagnosis Office Visit 02/20/2021 1:[facility]p [facility] [place] G93.41 Metabolic encephalopathy N39.0 Urinary tract infection, sit e not specified 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 E11.65 Type 2 diabetes mellitus wit h hyperglycemia J44.9 Chronic obstructive pulmonar y disease, unspecified E78.00 Pure hypercholesterolemia, u nspecified 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 Office Visit 12/31/2020 11[facility]a [facility] J44.9 Chronic obstructive pulmonary disease, u nspecified E78.00 Pure hypercholesterolemia, u nspecified 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 E11.65 Type 2 diabetes mellitus wit h hyperglycemia 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
--- OUTSIDE RECORDS SUMMARY | 2021-06-09 17:20 | CCD | Continuity of Care Document ---
Author Organization Unknown Address Unknown Phone Unavailable Care Team Providers Care Cover Operator Name Role Phone Andrew Bills JR, MD AUTM Unavailable Con Sosa DO AUTM [phone] [facility]M [phone] [facility] AUTM [phone] Problems Active Problems Provider Date Chronic obstructive lung disease Andrew Bills MD Onset : 07/07/2011 Benign essential hypertension Andrew Bills MD Onset: 09/06/2010 Disorder of nervous system due to diabetes mellitus Andrew Bills MD Onset: 07/07/2011 Polyneuropathy due to diabetes mellitus [place] Onset: 07/07/2011 Pure hypercholesterolemia Andrew Bills MD Onset: 07/07 Acquired renal cystic disease Andrew Bills MD Onset: 09/06/2010 Essential hypertension Anderw Bills MD Onset: 08/27/19 16 Social History Type Date Description Comments Sex Unknown ETOH Use Rarely consumes beer ETOH Use Rarely consumes wine Tobacco Use Start: Unknown End: Unknown Patient is a former smoker SMOKED FOR 20YRS 1 CONCHIS A DAY Allergies, Adverse Reactions, Alerts Active Allergies Reaction Severity Comments Date Codeine 08/09/2010 Aspirin 08/09/2010 Levemir 09/24/2015 Medications Active Medications SIG Qnty Indications [...] MD 08/16/2018 BD Uf Layla Pen Needle [id number] Use as Directed Two Times A Da [...] times a day as directed E11.9 200units AROLDO Siu 07/03/2014 Hydrocodone-Acetaminophen 5-325mg Tablets 1 by mouth [...] MD 07/10/2017 Administration Of Flu Vaccine Inj ection Andrew Bills MD 06/24/2016 Administration Of Flu [...] CPT Code Status Date Vaccine Lot # [id number] Given 05/22/2020 Influenza Vaccin e Quadrivalent Preser/Antibiotic Free Im Use [id number] U-Flu Given 06/03/2018 Influenza,Unspecified 67140 Given 07/10/2017 Influenza Vaccin e Quadrivalent Preser/Antibiotic Free Im Use [id number] Q2037 Given 06/24/2016 Fluvirin Virus Vaccine 17062 01 49072 Given 09/29/2014 Prevnar 13 [id number] Q2037 Given 05/31/2013 Fluvirin Virus Vaccine 12700 01 Q2037 Given 05/24/2012 Fluvirin Virus Vaccine Q2037 Given 07/07/2011 Fluvirin Virus Vaccine 02552 Given 05/30/2010 Influenza Virus Vaccine 53339 Given 05/17/2009 Influenza Virus Vaccine 77763 Given 07/12/2003 Pneumovax 23 56428 Given 06/22/2003 Influenza Virus Vaccine Vital Signs Date Vital Result Comment 02/20/2021 1:23pm BP Systolic 130 mmHg BP Diastolic 80 mmHg Heart Rate 68 /min Height 63.75 inches 5'3.75" Weight 150.00 lb BMI (Body Mass Index) 25.9 kg/m2 12/31/2020 11:35am BP Systolic 132 mmHg BP Diastolic 78 mmHg Heart Rate 70 /min Height 63.75 inches 5'3.75" Weight 156.00 lb O2 % BldC Oximetry 95 % BMI (Body Mass Index) 27.0 kg/m2 Results Test Acquired Date Facility Test Result H/L Range Note Laboratory test finding 02/05/[address] [address] [phone] Ammonia 13 uMOL/L Normal <32 Ua W/ Reflex To Culture 02/05/[address] [address] [phone] Appearance, Urine RFX TURBID High Clear Color, Urine RFX YELLOW Normal Yellow PH,Urine RFX 5.0 units Normal 5.0-9.0 Specific [place] [facility] Auto RFX 1.014 Normal 1.002-1.035 Protein, [...] /LPF Normal 0-1 Laboratory test finding 02/05/[address] [address] [phone] Thyroid Stimulating Hormone 2.130 uIU/ML Normal 0. 358-3.740 Basic Metabolic Profile 02/05/[address] [address] [phone] Glucose, Fasting 269 mg/dL High 70-100 Blood Urea Nitrogen 22 mg/dL High 7-18 Creatinine For GFR 0.90 mg/dL Normal 0.55-1.30 Glomerular Filtration Rate > 60.0 Normal >32 1 Sodium Level 134 mEq/L Low 136-145 Potassium Serum 4.6 mEq/L Normal 3.5-5.1 Chloride Level 103 mEq/L Normal 98-107 Carbon Dioxide Level 23 mEq/L Normal 21-32 Anion Gap 8 mEq/L Normal 8-16 Calcium Level 9.8 mg/dL Normal 8.8-10.2 Liver Profile 02/05/2021 [facility] [address]ter [address] [place] [address] [phone] Ast/Sgot 21 U/L Normal 7-37 Alt/SGPT 24 U/L Normal 12-78 Alkaline Phosphatase 148 U/L High 45-117 Bilirubin,Total 0.8 mg/dL Normal 0.2-1.0 Bilirubin,Direct 0.2 mg/dL Normal 0.0-0.2 Total Protein 8.9 GM/DL High 6.4-8.2 Albumin 3.9 GM/DL Normal 3.2-5.2 Albumin/Globulin Ratio 0.8 Low 1.2-2.2 Cardiac Marker Panel 02/05/2021 [facility] enter [address] [place] [address] [phone] CPK Creatine Phosphokinase 145 U/L Normal 26-19 2 CK-MB Value Mass 1.9 NG/ML Normal <3.6 MB/CK Relative Index 1.31 Normal < Or =4 2 Troponin I < 0.02 NG/ML Normal < 0.10 3 CBC With Differential 02/05/[address] [address] [phone] White Blood Count 11.5 10 High 4.0-10.0 [...] 36.0-66.0 Lymph % 20.2 % Low 24.0-44.0 Rooks % 11.8 % High 2.0-8.0 Eos % 0.6 % Normal 0.0-3.0 Baso % 0.8 % Normal 0.0-1.0 Immature Granulocyte % 0.4 % Normal 0-3.0 Nucleated Red Blood Cell % 0.0 % Normal 0-0 Neutrophils # 7.6 10 Normal 1.5-8.5 Lymph # 2.3 10 Normal 1.5-5.0 Rooks # 1.4 10 High 0.0-0.8 Eos # 0.1 10 Normal 0.0-0.5 Baso # 0.1 10 Normal 0.0-0.2 Laboratory test finding 02/05/2021 [facility] [address] [place] [address] [phone] Lactic Acid Sepsis Protocol 1.5 mmol/L Normal 0.4- 2.0 4 Laboratory test finding 02/05/2021 [facility] [address] [place] [address] [phone] Bedside Glucose 274 mg/dL High 83-110 Influenza A/B RSV Covid Amp 02/05/2021 [facility] [address] [place] [address] [phone] Influenza A Amplification NEGATIVE Normal Negati ve 5 Influenza B Amplification NEGATIVE Normal Negative 6 RSV Amplification NEGATIVE Normal Negative 7 Sars Covid-19 Amplification NEGATIVE Normal Negative 8 Venous Blood Gas 02/05/2021 [facility] [address]ter [address] [place] [address] [phone] Venous PH 7.324 units Low 7.330-7.430 Venous Partial Pressure Co2 47.1 mmHg Normal 38.0-50.0 Venous Partial Pressure O2 40.3 mmHg Normal 30.0-50.0 Venous Total Co2 25.4 mEq/L Normal 24.0-28.0 Venous Hco3 23.9 mEq/L Normal 23.0-27.0 Venous Base Excess -2.3 Low -2.0-2.0 Venous Standard Hco3 22.0 mEq/L Normal Venous O2 Saturation 71.9 % Normal 60.0-80.0 Microalbumin/Creatinine Urine 01/02/2021 [facility] Occupational Hygienist: Dr Andrew Bills [place] [id number] [phone] Microalbumin Urine 281.2 mg/L High 1.3 - 20.0 9 Urine Creatinine 265.8 mg/dL High 30.0 - 125.0 Microalb/Creat Ratio 105.8 ug/mg High 0.0 - 30.0 Total Iron Binding Capacit 12/31/2020 [facility] [address] [place] [address] [phone] Iron (Fe) 40 g/dL Low 50-170 Total Iron Binding Capacity 392 g/dL Normal 250-450 Percent Saturation 10.2 % Low 13.2-45.0 Complete Blood Count 12/31/2020 [facility] Occupational Hygienist: [place] [address] [phone] WBC 11.7 x10*3/UL High 4.1 - 10.9 [...] x10*3/UL High 2.0 - 7.8 A1c 12/31/2020 [facility] Occupational Hygienist: [place] [address] [phone] Hba1c 7.5 % High <5.7 10 Est Avg Glucose 169 mg/dL High 60 - 110 Basic Metabolic Panel 12/31/2020 [facility] Occupational Hygienist: [place] [address] [phone] Glucose 119 mg/dL High 74 - 99 11 BUN 30 mg/dL High 7 - 18 Creatinine 1.1 mg/dL 0.6 - 1.3 Sodium 143 mEq/L 136 - 145 Potassium 4.6 mEq/L 3.5 - 5.1 Chloride 108 mEq/L High 98 - 107 Carbon Dioxide 23 mEq/L 21 - 32 Calcium 8.9 mg/dL 8.5 - 10.1 GFR 48 mL/min Low >60 GFR 58 mL/min Low >60 12 Complete Blood Count 09/24/2020 [facility] Occupational Hygienist: Dr Andrew Bills [place], [place] [id number] [phone] WBC 10.1 x10*3/UL 4.1 - 10.9 13 RBC 3.22 x10*6/UL Low 4.20 - 6.30 Hemoglobin 9.6 g/dL Low 12.0 - 18.0 Hematocrit 28.7 % Low 37.0 - 51.0 MCV 89.1 fL 80.0 - 97.0 MCH 29.8 pg 26.0 - 32.0 MCHC 33.4 g/dL 31.0 - 38.0 RDW 14.4 % High 11.6 - 13.7 PLT 261 x10*3/UL 140 - 440 MPV 8.4 FL 7.8 - 11.0 Lymph % 24.3 % 10.0 - 58.5 Mid % 5.6 % 1.7 - 9.3 Neut % 70.1 % 37.0 - 92.0 Lymph # 2.4 x10*3/UL 0.6 - 4.1 Mid # 0.6 x10*3/UL 0.1 - 0.6 Neut # 7.1 x10*3/UL 2.0 - 7.8 A1c 09/24/2020 [facility] , Occupational Hygienist: Dr Andrew Bills [place], [place] [id number] [phone] Hba1c 9.2 % High <5.7 14 Est Avg Glucose 217 mg/dL High 60 - 110 Comprehensive Chem Profile 09/24/2020 [facility] Occupational Hygienist: Dr Andrew Bills [place], [place] [id number] [phone] Glucose 140 mg/dL High 74 - 99 15 BUN 33 mg/dL High 7 - 18 16 Creatinine 1.1 mg/dL 0.6 - 1.3 Sodium 146 mEq/L High 136 - 145 Potassium 4.9 mEq/L 3.5 - 5.1 Chloride 111 mEq/L High 98 - 107 Carbon Dioxide 24 mEq/L 21 - 32 Calcium 8.6 mg/dL 8.5 - 10.1 Alk. Phosphatase 113 mg/dL 46 - 116 Total Bilirubin 0.2 mg/dL 0.2 - 1.0 Ast (Sgot) 21 U/L 15 - 37 Alt (SGPT) 22 U/L 12 - 78 Albumin 3.3 g/dL Low 3.4 - 5.0 Total Protein 7.8 g/dL 6.4 - 8.2 A/G Ratio 0.73 CALC Low 1.00 - 1.90 GFR 48 mL/min Low >60 GFR 58 mL/min Low >60 17 Lipid Profile 09/24/2020 [facility] , Occupational Hygienist: Dr Andrew Bills [place], [place] [id number] [phone] Cholesterol 120 mg/dL Low 131 - 200 Triglycerides 78 mg/dL 30 - 150 HDL Cholesterol 54 mg/dL 35 - 60 LDL (Calculated) 50 CALC 50 - 159 1 Units are mL/min/1.73 m2 Chronic Kidney Disease Staging per NKF: Stage I & II GFR >=60 Normal to Mildly Decreased Stage III GFR 30-59 Moderately Decreased Stage IV GFR 15-29 Severely Decreased Stage V GFR <15 Very Little GFR Left ESRD GFR <15 on BARREL HANDLER 2 DIAGNOSIS CRITERIA MMB ng/ml Relative Index (RI) NON-AMI < or = 5 N/A OSULLIVAN ZONE > 5 < or = 4 AMI > 5 > 4 3 Troponin I Reference Interva l for [employer] LOCI: 99th Percentile= 0.00-0.045 ng/ml Risk Stratification: <= 0.10 ng/ml Decreased Risk for Adverse Clinical Events. 0.10-1.50 ng/ml Increased Risk for Adv erse Clinical Events. Evaluation of additional criterion and/or repeat testing in 2-6 hours is suggested to rule out myocardial damage. >= 1.50 ng/ml Indicative of Myocardial Injury. 4 Y/N query for Sepsis Lactate Rule: Y 5 Negative results do not prec lude influenza or RSV virus infection and should not be used as the sole basis for treatment or other patient management decisions. 6 Negative results do not prec lude influenza or RSV virus infection and should not be used as the sole basis for treatment or other patient management decisions. 7 Negative results do not prec lude influenza or RSV virus infection and should not be used as the sole basis for treatment or other patient management decisions. 8 A false negative result may occur if [...] pathogens. DISCLAIMER: Testing was performed using the [employer] SARS-CoV-2 test. This test was developed and its performance characteristics determined by [employer]. This test has not been FDA cleared [...] the authorization is terminated or revoked sooner. 9 NOTE: diluted and verified 10 Lab Result Notes: Pre-Diabetes 5.7 - 6.4 % Diabetes = or > 6.5% 11 100-125 mg/dL PRE-DIABET ES/FASTING >126 mg/dL DIABETES/FASTING 12 CHRONIC KIDNEY DISEASE STAGI NG PER NKF STAGE I & II GFR >= 60 NORMAL TO MILDLY DECREASED STAGE III GFR 30-59 MODERATELY DECREASED STAGE IV GFR 15-29 SEVERELY DECREASED STAGE V GFR <15 VERY LITTLE GFR LEFT ESRD GFR <15 ON BARREL HANDLER 13 NOTE: CBC VERIFIED 14 Lab Result Notes: Pre-Diabetes 5.7 - 6.4 % Diabetes = or > 6.5% 15 100-125 mg/dL PRE-DIABET ES/FASTING >126 mg/dL DIABETES/FASTING 16 NOTE: RESULT VERIFIED. 17 CHRONIC KIDNEY DISEASE STAGI NG PER NKF STAGE I & II GFR >= 60 NORMAL TO MILDLY DECREASED STAGE III GFR 30-59 MODERATELY DECREASED STAGE IV GFR 15-29 SEVERELY DECREASED STAGE V GFR <15 VERY LITTLE GFR LEFT ESRD GFR <15 ON BARREL HANDLER Procedures Date Code Description Status 02/20/2021 24828 Trans Care SRV W/I 14D Of DC, Co mm W/I 2 Dys Med Rec Completed 01/08/2021 05275 Chronic Care MGMT 20 Mins Clinical Staff Time Per Calendar Month Completed 12/31/2020 50367 Office/Outpatient Established Mo d MDM 30-39 Min Completed 12/04/2020 91511 Chronic Care MGMT 20 Mins Clinical Staff Time Per Calendar Month Completed 11/09/2020 77867 Chronic Care MGMT 20 Mins Clinical Staff Time Per Calendar Month Completed 10/01/2020 32671 Chronic Care MGMT 20 Mins Clinical Staff Time Per Calendar Month Completed 10/01/2020 22401 Chronic Care Management Services Ea Addl 20 Min Completed 09/24/2020 91520 Office/Outpatient Established Mo d MDM 30-39 Min Completed 05/09/2020 [id number] Diabetic Retinal Eye Exam [facility] 04/19/2019 [id number] Diabetic Retinal Eye Exam [facility] 04/14/2018 [id number] Diabetic Retinal Eye Exam [facility] 03/27/2017 [id number] Diabetic Retinal Eye Exam [facility] 03/10/2017 [id number] Diabetic Retinal Eye Exam [facility] 05/21/2015 [id number] Mammogram Completed 11/09/2013 [id number] Diabetic Retinal Eye Exam [facility] 03/31/2013 [id number] Mammogram Completed 12/22/2012 [id number] Diabetic Retinal Eye Exam [facility] 11/16/2012 [id number] Diabetic Retinal Eye Exam [facility] 04/08/2012 [id number] Mammogram Completed 07/24/2009 [id number] Bone Mineral Density Test [facility] 11/26/2007 [id number] Mammogram Completed Medical Devices Description No Information Available Encounters Type Date Location Provider Dx Diagnosis Office Visit 02/20/2021 1:40p [facility] [place] G93.41 Metabolic encephalopathy N39.0 Urinary tract infection, sit e not specified 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 E11.65 Type 2 diabetes mellitus wit h hyperglycemia J44.9 Chronic obstructive pulmonar y disease, unspecified E78.00 Pure hypercholesterolemia, u nspecified Z79.4 [facility] (current) use of i nsulin Office Visit 12/31/2020 11:[facility]a [facility] J44.9 Chronic obstructive pulmonary disease, u nspecified E78.00 Pure hypercholesterolemia, u nspecified 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 E11.65 Type 2 diabetes mellitus wit h hyperglycemia Z79.4 [facility] (current) use of i nsulin M15.9 Polyosteoarthritis, unspecif ied F11.20 Opioid dependence, uncomplic ated N28.1 Cyst of kidney, acquired D64.9 Anemia, unspecified Office Visit 09/24/2020 10:40a [facility] E11.42 Type 2 diabetes mellitus with diabetic p olyneuropathy E11.65 Type 2 diabetes mellitus wit h hyperglycemia E11.649 Type 2 diabetes mellitus wit h hypoglycemia without coma Z79.4 [facility] (current) use of i nsulin J44.9 Chronic obstructive pulmonar y disease, unspecified M15.9 Polyosteoarthritis, unspecif ied F11.20 Opioid dependence, uncomplic ated E78.00 Pure hypercholesterolemia, u nspecified N28.1 Cyst of kidney, acquired D64.9 Anemia, unspecified Z13.89 Encounter for screening for other disorder Assessments Date Code Description Provider 02/20/2021 G93.41 Metabolic encephalopathy JORI López JR [...] unspe cified JORI López JR 02/20/2021 Z79.4 [facility] (current) use of insul in JORI López [...] hy perglycemia Andrew Bills MD 12/31/2020 Z79.4 [facility] (current) use of insul in Andrew Bills [...] with di abetic polyneuropathy Andrew Bills MD 10/01/2020 J44.9 Chronic obstructive pulmonary di sease, rheaified Andrew Bills MD 10/01/2020 E78.00 Pure hypercholesterolemia, unspe cified Andrew Bills MD 10/01/2020 F34.1 Dysthymic disorder Andrew montanez MD 09/24/2020 E11.42 Type 2 diabetes mellitus with di abetic polyneuropathy Andrew Bills MD 09/24/2020 E11.65 Type 2 diabetes mellitus with hy perglycemia Andrew Bills MD 09/24/2020 E11.649 Type 2 diabetes mellitus with hy poglycemia without coma Andrew Bills MD 09/24/2020 Z79.4 [facility] (current) use of insul in Andrew Bills MD 09/24/2020 J44.9 Chronic obstructive pulmonary di sease, rheaified Andrew Bills MD 09/24/2020 M15.9 Polyosteoarthritis, rheaified Andrew Bills MD 09/24/2020 F11.20 Opioid dependence, uncomplicated Andrew Bills MD 09/24/2020 E78.00 Pure hypercholesterolemia, unspe cified Andrew Bills MD 09/24/2020 N28.1 Cyst of kidney, acquired Andrew Bills MD 09/24/2020 D64.9 Anemia, unspecified Andrew monk MD 09/24/2020 Z13.89 Encounter for screening for othe r disorder Andrew Bills MD Plan of Treatment Future Appointment(s):* 05/03/2021 2:45 pm - [facility] 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 TLC discussed. Glycemic index discussed. * Z79.4 [facility] (current) use of insulin * M15.9 Polyosteoarthritis, unspecified * F11.20 Opioid dependence, uncomplicated * N28.1 Cyst of kidney, acquired * D64.9 Anemia, unspecified Functional Status Description No Information Available Mental Status Description No Information Available Referrals Description No Information Available
--- OUTSIDE RECORDS SUMMARY | 2021-06-09 17:20 | CCD | Continuity of Care Document ---
Author Author Meka Bills MD Organization Unknown Address [address] [facility] [address] [place] [address] Phone [phone] Care Team Providers Care Assembler Installer General Name Role Phone Andrew Bills JR, MD AUTM Unavailable SheilaCon lam DO AUTM [phone] [facility] AUTM [phone] [facility] AUTM [phone] Problems Active Problems Provider Date Chronic obstructive [...] And 2 Tablets With Supper Daily 270tabs Yovani Sanchez JR PA 021 Ferrous Sulfate 325(65Fe) mg Table ts [...] MD 08/16/2018 BD Uf Layla Pen Needle [id number] Use as Directed Two Times A Da [...] times daily with meals 45units Adriana Hanks, ARLODO 09/29/2014 BD Pen Needle/Layla/Ultra Fine/32G X 4mm 32G X 4 mm Misc test bid or as directed dxE11.65 200units E11.65 Andrew Bills MD 07/03/2014 Josias Contour Blood Glucose Test Strips Strips test two times a day as directed E11.9 200units Adriana Hanks, AROLDO 07/03/2014 Hydrocodone-Acetaminophen 5-325mg Tablets 1 by mouth [...] CPT Code Status Date Vaccine Lot # [id number] Given 05/22/2020 Influenza Vaccin e Quadrivalent Preser/Antibiotic Free Im Use [id number] U-Flu Given 06/03/2018 Influenza,Unspecified 08541 Given 07/10/2017 Influenza Vaccin e Quadrivalent Preser/Antibiotic Free Im Use [id number] Q2037 Given 06/24/2016 Fluvirin Virus Vaccine 14551 01 62815 Given 09/29/2014 Prevnar 13 [id number] Q2037 Given 05/31/2013 Fluvirin Virus Vaccine [id number] 01 Q2037 Given 05/24/2012 Fluvirin Virus Vaccine Q2037 Given 07/07/2011 Fluvirin Virus Vaccine 28536 Given 05/30/2010 Influenza Virus Vaccine 98945 Given 05/17/2009 Influenza Virus Vaccine 86111 Given 07/12/2003 Pneumovax 23 01124 Given 06/22/2003 Influenza Virus Vaccine Vital Signs [...] H/L Range Note Laboratory test finding 02/05/[address] [address] [phone] Ammonia 13 uMOL/L Normal <32 Ua W/ Reflex To Culture 02/05/[address] [address] [phone] Appearance, Urine RFX TURBID High Clear Color, Urine RFX YELLOW Normal Yellow PH,Urine RFX 5.0 units Normal 5.0-9.0 Specific [place] Ur Auto RFX 1.014 Normal 1.002-1.035 Protein, [...] /LPF Normal 0-1 Laboratory test finding 02/05/[address] [address] [phone] Thyroid Stimulating Hormone 2.130 uIU/ML Normal 0. 358-3.740 Basic Metabolic Profile 02/05/2021 [facility] [address] [place] [address] [phone] Glucose, Fasting 269 mg/dL High 70-100 Blood [...] 9.8 mg/dL Normal 8.8-10.2 Liver Profile 02/05/2021 [facility] nter [address] [place] [address] [phone] Ast/Sgot 21 U/L Normal 7-37 Alt/SGPT 24 U/L Normal 12-78 Alkaline Phosphatase 148 U/L High 45-117 Bilirubin,Total 0.8 mg/dL Normal 0.2-1.0 Bilirubin,Direct 0.2 mg/dL Normal 0.0-0.2 Total Protein 8.9 GM/DL High 6.4-8.2 Albumin 3.9 GM/DL Normal 3.2-5.2 Albumin/Globulin Ratio 0.8 Low 1.2-2.2 Cardiac Marker Panel 02/05/2021 [facility] enter [address] [place] [address] [phone] CPK Creatine Phosphokinase 145 U/L Normal 26-19 2 CK-MB Value Mass 1.9 NG/ML Normal <3.6 MB/CK Relative Index 1.31 Normal < Or =4 2 Troponin I < 0.02 NG/ML Normal < 0.10 3 CBC With Differential 02/05/[address] [address] [phone] White Blood Count 11.5 10 High 4.0-10.0 [...] 36.0-66.0 Lymph % 20.2 % Low 24.0-44.0 [place] % 11.8 % High 2.0-8.0 Eos % 0.6 % Normal 0.0-3.0 Baso % 0.8 % Normal 0.0-1.0 Immature Granulocyte % 0.4 % Normal 0-3.0 Nucleated Red Blood Cell % 0.0 % Normal 0-0 Neutrophils # 7.6 10 Normal 1.5-8.5 Lymph # 2.3 10 Normal 1.5-5.0 [place] # 1.4 10 High 0.0-0.8 Eos # 0.1 10 Normal 0.0-0.5 Baso # 0.1 10 Normal 0.0-0.2 Laboratory test finding 02/05/2021 [facility] [address] [place] [address] [phone] Lactic Acid Sepsis Protocol 1.5 mmol/L Normal 0.4- 2.0 4 Laboratory test finding 02/05/2021 [facility] [address] [place] [address] [phone] Bedside Glucose 274 mg/dL High 83-110 Influenza A/B RSV Covid Amp 02/05/2021 [facility] [address] [place], [place] [address] [phone] Influenza A Amplification NEGATIVE Normal Negati ve 5 Influenza B Amplification NEGATIVE Normal Negative 6 RSV Amplification NEGATIVE Normal Negative 7 Sars Covid-19 Amplification NEGATIVE Normal Negative 8 Venous Blood Gas 02/05/2021 [facility] nter [address] [place], [place] [id number] [phone] Venous PH 7.324 units Low 7.330-7.430 Venous Partial Pressure Co2 47.1 mmHg Normal 38.0-50.0 Venous Partial Pressure O2 40.3 mmHg Normal 30.0-50.0 Venous Total Co2 25.4 mEq/L Normal 24.0-28.0 Venous Hco3 23.9 mEq/L Normal 23.0-27.0 Venous Base Excess -2.3 Low -2.0-2.0 Venous Standard Hco3 22.0 mEq/L Normal Venous O2 Saturation 71.9 % Normal 60.0-80.0 Microalbumin/Creatinine Urine 01/02/2021 [facility] Wheel And Pinion Inspector: Dr Andrew Bills [place] [id number] [phone] Microalbumin Urine 281.2 mg/L High 1.3 - 20.0 9 Urine Creatinine 265.8 mg/dL High 30.0 - 125.0 Microalb/Creat Ratio 105.8 ug/mg High 0.0 - 30.0 Total Iron Binding Capacit 12/31/2020 [facility] [address] [place] [address] [phone] Iron (Fe) 40 g/dL Low 50-170 Total Iron Binding Capacity 392 g/dL Normal 250-450 Percent Saturation 10.2 % Low 13.2-45.0 Complete Blood Count 12/31/2020 [facility] Wheel And Pinion Inspector: [place] [address] [phone] WBC 11.7 x10*3/UL High 4.1 - 10.9 [...] x10*3/UL High 2.0 - 7.8 A1c 12/31/2020 [facility] Wheel And Pinion Inspector: [place] [address] [phone] Hba1c 7.5 % High <5.7 10 Est Avg Glucose 169 mg/dL High 60 - 110 Basic Metabolic Panel 12/31/2020 [facility] Wheel And Pinion Inspector: Dr Andrew [place] [address] [phone] Glucose 119 mg/dL High 74 - 99 [...] Low >60 12 Complete Blood Count 09/24/2020 [facility] Wheel And Pinion Inspector: [place] [address] [phone] WBC 10.1 x10*3/UL 4.1 - 10.9 13 [...] 7.1 x10*3/UL 2.0 - 7.8 A1c 09/24/2020 [facility] Wheel And Pinion Inspector: [place] [address] [phone] Hba1c 9.2 % High <5.7 14 Est Avg Glucose 217 mg/dL High 60 - 110 Comprehensive Chem Profile 09/24/2020 [facility] Wheel And Pinion Inspector: [place] [address] [phone] Glucose 140 mg/dL High 74 - 99 [...] mL/min Low >60 17 Lipid Profile 09/24/2020 [facility] Wheel And Pinion Inspector: [place] [address] [phone] Cholesterol 120 mg/dL Low 131 - 200 [...] Little GFR Left ESRD GFR <15 on HEDDLER TIER 2 DIAGNOSIS CRITERIA MMB ng/ml Relative Index (RI) NON-AMI < or = 5 N/A OSULLIVAN ZONE > 5 < or = 4 AMI > 5 > 4 3 Troponin I Reference Interva l for Siemens [place] LOCI: 99th Percentile= 0.00-0.045 ng/ml Risk Stratification: [...] pathogens. DISCLAIMER: Testing was performed using the [employer] SARS-CoV-2 test. This test was developed and its performance characteristics determined by [employer]. This test has not been FDA cleared [...] LITTLE GFR LEFT ESRD GFR <15 ON HEDDLER TIER 13 NOTE: CBC VERIFIED 14 Lab Result [...] LITTLE GFR LEFT ESRD GFR <15 ON HEDDLER TIER Procedures Date Code Description Status 02/20/2021 88362 Trans Care SRV W/I 14D Of DC, Co mm W/I 2 Dys Med Rec Completed 01/08/2021 76704 Chronic Care MGMT 20 Mins Clinical Staff Time Per Calendar Month Completed 12/31/2020 22634 Office/Outpatient Established Mo d MDM 30-39 Min Completed 12/04/2020 63675 Chronic Care MGMT 20 Mins Clinical Staff Time Per Calendar Month Completed 11/09/2020 90886 Chronic Care MGMT 20 Mins Clinical Staff Time Per Calendar Month Completed 10/01/2020 90418 Chronic Care MGMT 20 Mins Clinical Staff Time Per Calendar Month Completed 10/01/2020 07115 Chronic Care Management Services Ea Addl 20 Min Completed 09/24/2020 09609 Office/Outpatient Established Mo d MDM 30-39 Min Completed 05/09/2020 [id number] Diabetic Retinal Eye Exam Comple [facility] 04/19/2019 110631296 Diabetic Retinal Eye Exam Comple [facility] 04/14/2018 [id number] Diabetic Retinal Eye Exam Comple [facility] 03/27/2017 021750223 Diabetic Retinal Eye Exam Comple [facility] 03/10/2017 401601411 Diabetic Retinal Eye Exam Comple [facility] 05/21/2015 [id number] Mammogram Completed 11/09/2013 566580686 Diabetic Retinal Eye Exam Comple [facility] 03/31/2013 90837874 Mammogram Completed 12/22/2012 542092479 Diabetic Retinal Eye Exam Comple [facility] 11/16/2012 [id number] Diabetic Retinal Eye Exam Comple [facility] 04/08/2012 41822128 Mammogram Completed 07/24/2009 146945647 Bone Mineral Density Test Comple bhanu 11/26/2007 [id number] Mammogram Completed Medical Devices Description No Information Available Encounters Type Date Location Provider Dx Diagnosis Office Visit 02/20/2021 1:40p [place] Jose Gómez JR, PA G93.41 Metabolic encephalopathy N39.0 Urinary tract infection, sit e not specified 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 E11.65 Type 2 diabetes mellitus wit h hyperglycemia J44.9 Chronic obstructive pulmonar y disease, unspecified E78.00 Pure hypercholesterolemia, u nspecified Z79.4 [facility] (current) use of i nsulin Office Visit 12/31/2020 11:40a [place] [facility] MD J44.9 Chronic obstructive pulmonary disease, u nspecified E78.00 Pure hypercholesterolemia, u nspecified 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 E11.65 Type 2 diabetes mellitus wit h hyperglycemia Z79.4 [facility] (current) use of i nsulin M15.9 Polyosteoarthritis, unspecif ied F11.20 Opioid dependence, uncomplic ated N28.1 Cyst of kidney, acquired D64.9 Anemia, unspecified Office Visit 09/24/2020 10[place]a [place] E11.42 Type 2 diabetes mellitus with diabetic p olyneuropathy E11.65 Type 2 diabetes mellitus wit h hyperglycemia E11.649 Type 2 diabetes mellitus wit h hypoglycemia without coma 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 12/31/2020 - Andrew Bills MD* J44.9 [...]
--- OUTSIDE RECORDS SUMMARY | 2021-06-09 17:20 | CCD | Continuity of Care Document ---
Author Organization Unknown Address Unknown Phone Unavailable Care Team Providers Care Front End Web Developer Name Role Phone Andrew Bills JR, MD AUTM Unavailable Con Sosa DO AUTM [phone] [facility] AUTM [phone] [employer] [facility] AUTM [phone] Problems Active Problems Provider Date Chronic obstructive [...] MD 08/16/2018 BD Uf Layla Pen Needle [id number] Use as Directed Two Times A Da [...] CPT Code Status Date Vaccine Lot # 76635 Given 05/22/2020 Influenza Vaccin e Quadrivalent Preser/Antibiotic Free Im Use 147056 U-Flu Given 06/03/2018 Influenza,Unspecified 98997 Given 07/10/2017 Influenza Vaccin e Quadrivalent Preser/Antibiotic Free Im Use [id number] Q2037 Given 06/24/2016 Fluvirin Virus Vaccine 47027 01 35534 Given 09/29/2014 Prevnar 13 [id number] Q2037 Given 05/31/2013 Fluvirin Virus Vaccine 56094 01 Q2037 Given 05/24/2012 Fluvirin Virus Vaccine Q2037 Given 07/07/2011 Fluvirin Virus Vaccine 44429 Given 05/30/2010 Influenza Virus Vaccine 17458 Given 05/17/2009 Influenza Virus Vaccine 94730 Given 07/12/2003 Pneumovax 23 84903 Given 06/22/2003 Influenza Virus Vaccine Vital Signs [...] Date Facility Test Result H/L Range Note Istat Chem8+ Panel 03/26/2021 [facility] nter [address] [place] [address] [phone] iSTAT HCT 31.0 % Low 38.0-51.0 iSTAT Glucose 244 mg/dL High 70-105 iSTAT Sodium 141 mEq/L Normal 136-145 iSTAT Potassium 4.4 mEq/L Normal 3.5-5.1 iSTAT CA++ 4.8 mg/dL Normal 4.5-5.3 iSTAT Chloride 103 mEq/L Normal 98-109 iSTAT Co2 26.0 MM/L Normal 23.0-27.0 iSTAT BUN 18 mg/dL Normal 8-26 iSTAT Creatinine 0.7 mg/dL Normal 0.6-1.3 Venous Blood Gas 02/05/[address] [id number] [phone] Venous PH 7.324 units Low 7.330-7.430 Venous Partial Pressure Co2 47.1 mmHg Normal 38.0-50.0 Venous Partial Pressure O2 40.3 mmHg Normal 30.0-50.0 Venous Total Co2 25.4 mEq/L Normal 24.0-28.0 Venous Hco3 23.9 mEq/L Normal 23.0-27.0 Venous Base Excess -2.3 Low -2.0-2.0 Venous Standard Hco3 22.0 mEq/L Normal Venous O2 Saturation 71.9 % Normal 60.0-80.0 Ua W/ Reflex To Culture 02/05/2021 [facility] [address] [place] [address] [phone] Appearance, Urine RFX TURBID High Clear Color, Urine RFX YELLOW Normal Yellow PH,Urine RFX 5.0 units Normal 5.0-9.0 Specific [place] Ur Auto RFX 1.014 Normal 1.002-1.035 Protein, [...] Normal 0-1 Laboratory test finding 02/05/[address] [address] [phone] Thyroid Stimulating Hormone 2.130 uIU/ML Normal 0. 358-3.740 Basic Metabolic Profile 02/05/[address] [address] [phone] Glucose, Fasting 269 mg/dL High 70-100 Blood [...] 9.8 mg/dL Normal 8.8-10.2 Liver Profile 02/05/2021 [facility] [address] [address] [phone] Ast/Sgot 21 U/L Normal 7-37 Alt/SGPT 24 U/L Normal 12-78 Alkaline Phosphatase 148 U/L High 45-117 Bilirubin,Total 0.8 mg/dL Normal 0.2-1.0 Bilirubin,Direct 0.2 mg/dL Normal 0.0-0.2 Total Protein 8.9 GM/DL High 6.4-8.2 Albumin 3.9 GM/DL Normal 3.2-5.2 Albumin/Globulin Ratio 0.8 Low 1.2-2.2 Cardiac Marker Panel 02/05/2021 [facility] enter [address] [place] [address] [phone] CPK Creatine Phosphokinase 145 U/L Normal 26-19 2 CK-MB Value Mass 1.9 NG/ML Normal <3.6 MB/CK Relative Index 1.31 Normal < Or =4 2 Troponin I < 0.02 NG/ML Normal < 0.10 3 CBC With Differential 02/05/[address] [address] [phone] White Blood Count 11.5 10 High 4.0-10.0 [...] 36.0-66.0 Lymph % 20.2 % Low 24.0-44.0 [place] % 11.8 % High 2.0-8.0 Eos % 0.6 % Normal 0.0-3.0 Baso % 0.8 % Normal 0.0-1.0 Immature Granulocyte % 0.4 % Normal 0-3.0 Nucleated Red Blood Cell % 0.0 % Normal 0-0 Neutrophils # 7.6 10 Normal 1.5-8.5 Lymph # 2.3 10 Normal 1.5-5.0 [place] # 1.4 10 High 0.0-0.8 Eos # 0.1 10 Normal 0.0-0.5 Baso # 0.1 10 Normal 0.0-0.2 Laboratory test finding 02/05/2021 [facility] [address] [place] [address] [phone] Lactic Acid Sepsis Protocol 1.5 mmol/L Normal 0.4- 2.0 4 Laboratory test finding 02/05/2021 [facility] [address] [place] [address] [phone] Bedside Glucose 274 mg/dL High 83-110 Influenza A/B RSV Covid Amp 02/05/2021 [facility] [address] [place] [address] [phone] Influenza A Amplification NEGATIVE Normal Negati ve 5 Influenza B Amplification NEGATIVE Normal Negative 6 RSV Amplification NEGATIVE Normal Negative 7 Sars Covid-19 Amplification NEGATIVE Normal Negative 8 Laboratory test finding 02/05/2021 [facility] [address] [place] [address] [phone] Ammonia 13 uMOL/L Normal <32 Microalbumin/Creatinine Urine 01/02/2021 [facility] Lithopone Mill Worker: [place] [address] [phone] Microalbumin Urine 281.2 mg/L High 1.3 - 20.0 9 Urine Creatinine 265.8 mg/dL High 30.0 - 125.0 Microalb/Creat Ratio 105.8 ug/mg High 0.0 - 30.0 Total Iron Binding Capacit 12/31/2020 [facility] [address] [place] [address] [phone] Iron (Fe) 40 g/dL Low 50-170 Total Iron Binding Capacity 392 g/dL Normal 250-450 Percent Saturation 10.2 % Low 13.2-45.0 Complete Blood Count 12/31/2020 [facility] Lithopone Mill Worker: [place] [address] [phone] WBC 11.7 x10*3/UL High 4.1 - 10.9 [...] x10*3/UL High 2.0 - 7.8 A1c 12/31/2020 [facility] Lithopone Mill Worker: Dr Andrew Bills [place], [place] [address] [phone] Hba1c 7.5 % High <5.7 10 Est Avg Glucose 169 mg/dL High 60 - 110 Basic Metabolic Panel 12/31/2020 [facility] Lith[employer]one Mill Worker: Dr Andrew Bills [place], [place] [id number] [phone] Glucose 119 mg/dL High 74 - 99 [...] >60 GFR 58 mL/min Low >60 12 1 Units are mL/min/1.73 m2 Chronic Kidney Disease Staging per NKF: Stage I & II GFR >=60 Normal to Mildly Decreased Stage III GFR 30-59 Moderately Decreased Stage IV GFR 15-29 Severely Decreased Stage V GFR <15 Very Little GFR Left ESRD GFR <15 on SKI MAKER WOOD 2 DIAGNOSIS CRITERIA MMB ng/ml Relative Index (RI) NON-AMI < or = 5 N/A OSULLIVAN ZONE > 5 < or = 4 AMI > 5 > 4 3 Troponin I Reference Interva l for Siemens [place] LOCI: 99th Percentile= 0.00-0.045 ng/ml Risk Stratification: [...] pathogens. DISCLAIMER: Testing was performed using the [employer] SARS-CoV-2 test. This test was developed and its performance characteristics determined by [employer]. This test has not been FDA cleared [...] LITTLE GFR LEFT ESRD GFR <15 ON SKI MAKER WOOD Procedures Date Code Description Status 02/20/2021 57470 Trans Care SRV W/I 14D Of DC, Co mm W/I 2 Dys Med Rec Completed 01/08/2021 52600 Chronic Care MGMT 20 Mins Clinical Staff Time Per Calendar Month Completed 12/31/2020 81262 Office/Outpatient Established Mo d MDM 30-39 Min Completed 12/04/2020 70244 Chronic Care MGMT 20 Mins Clinical Staff Time Per Calendar Month Completed 11/09/2020 60324 Chronic Care MGMT 20 Mins Clinical Staff Time Per Calendar Month Completed 10/01/2020 33767 Chronic Care MGMT 20 Mins Clinical Staff Time Per Calendar Month Completed 10/01/2020 97385 Chronic Care Management Services Ea Addl 20 Min Completed 05/09/2020 763716560 Diabetic Retinal Eye Exam Comple bhanu 04/19/2019 329666539 Diabetic Retinal Eye Exam Comple bhanu 04/14/2018 736382712 Diabetic Retinal Eye Exam Comple bhanu 03/27/2017 659931394 Diabetic Retinal Eye Exam Comple bhanu 03/10/2017 437633136 Diabetic Retinal Eye Exam Comple [facility] 05/21/2015 52132138 Mammogram Completed 11/09/2013 552294449 Diabetic Retinal Eye Exam Comple bhanu 03/31/2013 [id number] Mammogram Completed 12/22/2012 388405194 Diabetic Retinal Eye Exam Comple bhanu 11/16/2012 557438589 Diabetic Retinal Eye Exam Comple [facility] 04/08/2012 00292082 Mammogram Completed 07/24/2009 352520759 Bone Mineral Density Test Comple [facility] 11/26/2007 85041037 Mammogram Completed Medical Devices Description No Information Available Encounters Type Date Location Provider Dx Diagnosis Office Visit 02/20/2021 1:40p [facility] G93.41 Metabolic encephalopathy N39.0 Urinary tract infection, sit e not specified 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.4 shelter (current) use of i nsulin M15.9 Polyosteoarthritis, unspecif ied F11.20 Opioid dependence, uncomplic ated N28.1 Cyst of kidney, acquired D64.9 Anemia, unspecified Assessments Date Code Description Provider 02/20/2021 G93.41 [...] unspe cified JORI López JR 02/20/2021 Z79.4 shelter (current) use of insul in JORI López [...] perglycemia Andrew Bills MD 12/31/2020 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.4 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 Andrew Bills [...] 11/09/2020 J44.9 Chronic obstructive pulmonary di sease, mon[place] Bills MD 11/09/2020 E78.00 Pure hypercholesterolemia, unspe cified Andrew Bills MD 11/09/2020 F34.1 Dysthymic disorder Andrew montanez MD 11/09/2020 E11.42 Type 2 diabetes mellitus with di abetic polyneuropathy Andrew Bills MD 10/01/2020 J44.9 Chronic obstructive pulmonary di sease, unspecified Andrew Bills MD 10/01/2020 E78.00 Pure hypercholesterolemia, unspe cified Andrew Bills MD 10/01/2020 F34.1 Dysthymic disorder Andrew montanez MD Plan of Treatment Future Appointment(s):* 04/10/2021 9:00 am - Chevy Bills DO at [facility] * 05/03/2021 2:45 pm - Andrew Bills MD at [facility] 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 TLC discussed. Glycemic index discussed. * Z79.4 intermediate frame tender (current) use of insulin * M15.9 Polyosteoarthritis, unspecified * F11.20 Opioid dependence, uncomplicated * N28.1 Cyst of kidney, acquired * D64.9 Anemia, unspecified Functional Status Description No Information Available Mental Status Description No Information Available Referrals Description No Information Available
--- OUTSIDE RECORDS SUMMARY | 2021-06-09 17:20 | CCD | Continuity of Care Document ---
Author Author Lab Schedule, January Organization Unknown Address [address] [place] [id number] Phone Unavailable Care Team Providers Care Jump Roll Operator Name Role Phone Andrew Bills JR, MD AUTM Unavailable SheilaCon lam DO AUTM [phone] [facility] AUTM [phone] [facility] AUTM [phone] Problems Active Problems Provider Date Chronic obstructive [...] MD 08/16/2018 BD Uf Layla Pen Needle [id number] Use as Directed Two Times A Da [...] CPT Code Status Date Vaccine Lot # [id number] Given 05/22/2020 Influenza Vaccin e Quadrivalent Preser/Antibiotic Free Im Use [id number] U-Flu Given 06/03/2018 Influenza,Unspecified 99471 Given 07/10/2017 Influenza Vaccin e Quadrivalent Preser/Antibiotic Free Im Use 133146 Q2037 Given 06/24/2016 Fluvirin Virus Vaccine 33105 01 07576 Given 09/29/2014 Prevnar 13 [id number] Q2037 Given 05/31/2013 Fluvirin Virus Vaccine [id number] 01 Q2037 Given 05/24/2012 Fluvirin Virus Vaccine Q2037 Given 07/07/2011 Fluvirin Virus Vaccine 51118 Given 05/30/2010 Influenza Virus Vaccine 37714 Given 05/17/2009 Influenza Virus Vaccine 83550 Given 07/12/2003 Pneumovax 23 25403 Given 06/22/2003 Influenza Virus Vaccine Vital Signs [...] H/L Range Note Laboratory test finding 02/05/[address] [address] [phone] Ammonia 13 uMOL/L Normal <32 Ua W/ Reflex To Culture 02/05/[address] [address] [phone] Appearance, Urine RFX TURBID High Clear Color, Urine RFX YELLOW Normal Yellow PH,Urine RFX 5.0 units Normal 5.0-9.0 Specific Vesper Ur Auto RFX 1.014 Normal 1.002-1.035 Protein, [...] /LPF Normal 0-1 Laboratory test finding 02/05/[address] [address] [phone] Thyroid Stimulating Hormone 2.130 uIU/ML Normal 0. 358-3.740 Basic Metabolic Profile 02/05/2021 [address] [place] [address] [phone] Glucose, Fasting 269 mg/dL High 70-100 Blood [...] mg/dL Normal 8.8-10.2 Liver Profile 02/05/2021 [facility] nter [address] [place] [address] [phone] Ast/Sgot 21 U/L Normal 7-37 Alt/SGPT 24 U/L Normal 12-78 Alkaline Phosphatase 148 U/L High 45-117 Bilirubin,Total 0.8 mg/dL Normal 0.2-1.0 Bilirubin,Direct 0.2 mg/dL Normal 0.0-0.2 Total Protein 8.9 GM/DL High 6.4-8.2 Albumin 3.9 GM/DL Normal 3.2-5.2 Albumin/Globulin Ratio 0.8 Low 1.2-2.2 Cardiac Marker Panel 02/05/2021 [facility] [address] [place] [address] [phone] CPK Creatine Phosphokinase 145 U/L Normal 26-19 2 CK-MB Value Mass 1.9 NG/ML Normal <3.6 MB/CK Relative Index 1.31 Normal < Or =4 2 Troponin I < 0.02 NG/ML Normal < 0.10 3 CBC With Differential 02/05/[address] [address] [phone] White Blood Count 11.5 10 High 4.0-10.0 [...] 36.0-66.0 Lymph % 20.2 % Low 24.0-44.0 [place] % 11.8 % High 2.0-8.0 Eos % 0.6 % Normal 0.0-3.0 Baso % 0.8 % Normal 0.0-1.0 Immature Granulocyte % 0.4 % Normal 0-3.0 Nucleated Red Blood Cell % 0.0 % Normal 0-0 Neutrophils # 7.6 10 Normal 1.5-8.5 Lymph # 2.3 10 Normal 1.5-5.0 [place] # 1.4 10 High 0.0-0.8 Eos # 0.1 10 Normal 0.0-0.5 Baso # 0.1 10 Normal 0.0-0.2 Laboratory test finding 02/05/2021 [facility] [address] [place] [address] [phone] Lactic Acid Sepsis Protocol 1.5 mmol/L Normal 0.4- 2.0 4 Laboratory test finding 02/05/2021 [facility] [address] [place] [address] [phone] Bedside Glucose 274 mg/dL High 83-110 Influenza A/B RSV Covid Amp 02/05/2021 [facility] [address] [place] [address] [phone] Influenza A Amplification NEGATIVE Normal Negati ve 5 Influenza B Amplification NEGATIVE Normal Negative 6 RSV Amplification NEGATIVE Normal Negative 7 Sars Covid-19 Amplification NEGATIVE Normal Negative 8 Venous Blood Gas 02/05/2021 [facility] nter [address] [place] [address] [phone] Venous PH 7.324 units Low 7.330-7.430 Venous Partial Pressure Co2 47.1 mmHg Normal 38.0-50.0 Venous Partial Pressure O2 40.3 mmHg Normal 30.0-50.0 Venous Total Co2 25.4 mEq/L Normal 24.0-28.0 Venous Hco3 23.9 mEq/L Normal 23.0-27.0 Venous Base Excess -2.3 Low -2.0-2.0 Venous Standard Hco3 22.0 mEq/L Normal Venous O2 Saturation 71.9 % Normal 60.0-80.0 Microalbumin/Creatinine Urine 01/02/2021 [facility] Marketing Research Coordinator: [place] [address] [phone] Microalbumin Urine 281.2 mg/L High 1.3 - 20.0 9 Urine Creatinine 265.8 mg/dL High 30.0 - 125.0 Microalb/Creat Ratio 105.8 ug/mg High 0.0 - 30.0 Total Iron Binding Capacit 12/31/2020 [facility] [address] [place], [place] [id number] [phone] Iron (Fe) 40 g/dL Low 50-170 Total Iron Binding Capacity 392 g/dL Normal 250-450 Percent Saturation 10.2 % Low 13.2-45.0 Complete Blood Count 12/31/2020 [facility] Marketing Research Coordinator: [place] [address] [phone] WBC 11.7 x10*3/UL High 4.1 - 10.9 [...] x10*3/UL High 2.0 - 7.8 A1c 12/31/2020 [facility] Marketing Research Coordinator: [place] [address] [phone] Hba1c 7.5 % High <5.7 10 Est Avg Glucose 169 mg/dL High 60 - 110 Basic Metabolic Panel 12/31/2020 [facility] Marketing Research Coordinator: [place] [address] [phone] Glucose 119 mg/dL High 74 - 99 [...] Little GFR Left ESRD GFR <15 on WIRE SETTER 2 DIAGNOSIS CRITERIA MMB ng/ml Relative Index (RI) NON-AMI < or = 5 N/A OSULLIVAN ZONE > 5 < or = 4 AMI > 5 > 4 3 Troponin I Reference Interva l for [employer] LOCI: 99th Percentile= 0.00-0.045 ng/ml Risk Stratification: [...] pathogens. DISCLAIMER: Testing was performed using the [employer] SARS-CoV-2 test. This test was developed and its performance characteristics determined by [employer]. This test has not been FDA cleared [...] LITTLE GFR LEFT ESRD GFR <15 ON WIRE SETTER Procedures Date Code Description Status 02/20/2021 78274 Trans Care SRV W/I 14D Of Adali POTTER mm W/I 2 Dys Med Rec Completed 01/08/2021 07986 Chronic Care MGMT 20 Mins Clinical Staff Time Per Calendar Month Completed 12/31/2020 97165 Office/Outpatient Established Mo d MDM 30-39 Min Completed 12/04/2020 58106 Chronic Care MGMT 20 Mins Clinical Staff Time Per Calendar Month Completed 11/09/2020 15966 Chronic Care MGMT 20 Mins Clinical Staff Time Per Calendar Month Completed 10/01/2020 84456 Chronic Care MGMT 20 Mins Clinical Staff Time Per Calendar Month Completed 10/01/2020 03796 Chronic Care Management Services Ea Addl 20 Min Completed 05/09/2020 [id number] Diabetic Retinal Eye Exam Comple bhanu 04/19/2019 [id number] Diabetic Retinal Eye Exam Comple bhanu 04/14/2018 [id number] Diabetic Retinal Eye Exam Comple bhanu 03/27/2017 554464013 Diabetic Retinal Eye Exam Comple bhanu 03/10/2017 559721423 Diabetic Retinal Eye Exam Comple bhanu 05/21/2015 94221347 Mammogram Completed 11/09/2013 [id number] Diabetic Retinal Eye Exam Comple bhanu 03/31/2013 51822740 Mammogram Completed 12/22/2012 218853097 Diabetic Retinal Eye Exam Comple bhanu 11/16/2012 063742145 Diabetic Retinal Eye Exam Comple bahnu 04/08/2012 [id number] Mammogram Completed 07/24/2009 462471099 Bone Mineral Density Test Comple bhanu 11/26/2007 [id number] Mammogram Completed Medical Devices Description No Information Available Encounters Type Date Location Provider Dx Diagnosis Office Visit 02/20[facility]2021 [facility] G93.41 Metabolic encephalopathy N39.0 Urinary tract infection, sit e not specified 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 E11.65 Type 2 diabetes mellitus wit h hyperglycemia J44.9 Chronic obstructive pulmonar y disease, unspecified E78.00 Pure hypercholesterolemia, u nspecified Z79.4 superintendent container terminal (current) use of i nsulin Office Visit 12/31/2020 11:40a [facility] Bills MD J44.9 Chronic obstructive pulmonary disease, u nspecified E78.00 Pure hypercholesterolemia, u nspecified 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 E11.65 Type 2 diabetes mellitus wit h hyperglycemia Z79.4 detention (current) use of i nsulin M15.9 Polyosteoarthritis, [...] JR 02/20/2021 E78.00 Pure hypercholesterolemia, unspe cified Yovani Sanchez JR, JORI 02/20/2021 Z79.4 superintendent container terminal (current) use of insul in JORI López [...] hy perglycemia Andrew Bills MD 12/31/2020 Z79.4 superintendent container terminal (current) use of insul in Andrwe Bills MD 12/31/2020 M15.9 Polyosteoarthritis, unspecified Andrew [...] montanez MD Plan of Treatment Future Appointment(s):* 05/03/2021 2:45 pm - Andrew Bills MD at [facility] 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 TLC discussed. Glycemic index discussed. * Z79.4 detention (current) use of insulin * M15.9 Polyosteoarthritis, unspecified * F11.20 Opioid dependence, uncomplicated * N28.1 Cyst of kidney, acquired * D64.9 Anemia, unspecified Functional Status Description No Information Available Mental Status Description No Information Available Referrals Description No Information Available
--- OUTSIDE RECORDS SUMMARY | 2021-06-09 17:20 | CCD | Continuity of Care Document ---
Author Organization Unknown Address Unknown Phone Unavailable Care Team Providers Care Explosive Ordnance Technician Name Role Phone Andrew Bills JR, MD AUTM Unavailable Cno Sosa DO AUTM [phone] [facility] AUTM [phone] [facility] AUTM [phone] Problems Active Problems Provider Date Chronic obstructive lung disease Andrew Bills MD Onset : 07/07/2011 Benign essential hypertension Andrew Bills MD Onset: 09/06/2010 Disorder of nervous system due to diabetes mellitus Andrew Bills MD Onset: 07/07/2011 Polyneuropathy due to diabetes mellitus [place] Onset: 07/07/2011 Pure hypercholesterolemia nAdrew Bills MD Onset: 07/07 Acquired renal cystic [...] MD 08/16/2018 BD Uf Layla Pen Needle [id number] Use as Directed Two Times A Da [...] CPT Code Status Date Vaccine Lot # 31827 Given 05/22/2020 Influenza Vaccin e Quadrivalent Preser/Antibiotic Free Im Use [id number] U-Flu Given 06/03/2018 Influenza,Unspecified 04538 Given 07/10/2017 Influenza Vaccin e Quadrivalent Preser/Antibiotic Free Im Use [id number] Q2037 Given 06/24/2016 Fluvirin Virus Vaccine 22245 01 86622 Given 09/29/2014 Prevnar 13 [id number] Q2037 Given 05/31/2013 Fluvirin Virus Vaccine 25092 01 Q2037 Given 05/24/2012 Fluvirin Virus Vaccine Q2037 Given 07/07/2011 Fluvirin Virus Vaccine 46737 Given 05/30/2010 Influenza Virus Vaccine 25524 Given 05/17/2009 Influenza Virus Vaccine 48992 Given 07/12/2003 Pneumovax 23 48190 Given 06/22/2003 Influenza Virus Vaccine Vital Signs [...] H/L Range Note Laboratory test finding 02/05/[address] [address] [phone] Ammonia 13 uMOL/L Normal <32 Ua W/ Reflex To Culture 02/05/[address] [address] [phone] Appearance, Urine RFX TURBID High Clear Color, Urine RFX YELLOW Normal Yellow PH,Urine RFX 5.0 units Normal 5.0-9.0 Specific Bird In Hand Ur Auto RFX 1.014 Normal 1.002-1.035 Protein, [...] /LPF Normal 0-1 Laboratory test finding 02/05/[address] [address] [phone] Thyroid Stimulating Hormone 2.130 uIU/ML Normal 0. 358-3.740 Basic Metabolic Profile 02/05/[address] [address] [phone] Glucose, Fasting 269 mg/dL High 70-100 Blood [...] 9.8 mg/dL Normal 8.8-10.2 Liver Profile 02/05/2021 [facility] nter [address] [place] [address] [phone] Ast/Sgot 21 U/L Normal 7-37 Alt/SGPT 24 U/L Normal 12-78 Alkaline Phosphatase 148 U/L High 45-117 Bilirubin,Total 0.8 mg/dL Normal 0.2-1.0 Bilirubin,Direct 0.2 mg/dL Normal 0.0-0.2 Total Protein 8.9 GM/DL High 6.4-8.2 Albumin 3.9 GM/DL Normal 3.2-5.2 Albumin/Globulin Ratio 0.8 Low 1.2-2.2 Cardiac Marker Panel 02/05/2021 [facility] enter [address] [place] [address] [phone] CPK Creatine Phosphokinase 145 U/L Normal 26-19 2 CK-MB Value Mass 1.9 NG/ML Normal <3.6 MB/CK Relative Index 1.31 Normal < Or =4 2 Troponin I < 0.02 NG/ML Normal < 0.10 3 CBC With Differential 02/05/[address] [address] [phone] White Blood Count 11.5 10 High 4.0-10.0 [...] 36.0-66.0 Lymph % 20.2 % Low 24.0-44.0 [place] % 11.8 % High 2.0-8.0 Eos % 0.6 % Normal 0.0-3.0 Baso % 0.8 % Normal 0.0-1.0 Immature Granulocyte % 0.4 % Normal 0-3.0 Nucleated Red Blood Cell % 0.0 % Normal 0-0 Neutrophils # 7.6 10 Normal 1.5-8.5 Lymph # 2.3 10 Normal 1.5-5.0 [place] # 1.4 10 High 0.0-0.8 Eos # 0.1 10 Normal 0.0-0.5 Baso # 0.1 10 Normal 0.0-0.2 Laboratory test finding 02/05/2021 [facility] [address] [place] [address] [phone] Lactic Acid Sepsis Protocol 1.5 mmol/L Normal 0.4- 2.0 4 Laboratory test finding 02/05/2021 [facility] [address] [place] [address] [phone] Bedside Glucose 274 mg/dL High 83-110 Influenza A/B RSV Covid Amp 02/05/2021 [facility] [address] [place] [address] [phone] Influenza A Amplification NEGATIVE Normal Negati ve 5 Influenza B Amplification NEGATIVE Normal Negative 6 RSV Amplification NEGATIVE Normal Negative 7 Sars Covid-19 Amplification NEGATIVE Normal Negative 8 Venous Blood Gas 02/05/2021 [facility] nter [address] [place] [address] [phone] Venous PH 7.324 units Low 7.330-7.430 Venous Partial Pressure Co2 47.1 mmHg Normal 38.0-50.0 Venous Partial Pressure O2 40.3 mmHg Normal 30.0-50.0 Venous Total Co2 25.4 mEq/L Normal 24.0-28.0 Venous Hco3 23.9 mEq/L Normal 23.0-27.0 Venous Base Excess -2.3 Low -2.0-2.0 Venous Standard Hco3 22.0 mEq/L Normal Venous O2 Saturation 71.9 % Normal 60.0-80.0 Microalbumin/Creatinine Urine 01/02/2021 [facility] Storage Engineer: Dr Andrew Bills [place] [id number] [phone] Microalbumin Urine 281.2 mg/L High 1.3 - 20.0 9 Urine Creatinine 265.8 mg/dL High 30.0 - 125.0 Microalb/Creat Ratio 105.8 ug/mg High 0.0 - 30.0 Total Iron Binding Capacit 12/31/2020 [facility] [address] [place] [address] [phone] Iron (Fe) 40 g/dL Low 50-170 Total Iron Binding Capacity 392 g/dL Normal 250-450 Percent Saturation 10.2 % Low 13.2-45.0 Complete Blood Count 12/31/2020 [facility] Storage Engineer: [place] [address] [phone] WBC 11.7 x10*3/UL High 4.1 - 10.9 [...] x10*3/UL High 2.0 - 7.8 A1c 12/31/2020 [facility] Storage Engineer: [place] [address] [phone] Hba1c 7.5 % High <5.7 10 Est Avg Glucose 169 mg/dL High 60 - 110 Basic Metabolic Panel 12/31/2020 [facility] Storage Engineer: [place] [address] [phone] Glucose 119 mg/dL High 74 - 99 [...] Low >60 12 Complete Blood Count 09/24/2020 [facility] Storage Engineer: Dr Andrew Bills [place], [place] [address]139 [phone] WBC 10.1 x10*3/UL 4.1 - 10.9 13 [...] 7.1 x10*3/UL 2.0 - 7.8 A1c 09/24/2020 [facility] , Storage Engineer: Dr Andrew Bills [place], [place] [id number] [phone] Hba1c 9.2 % High <5.7 14 Est Avg Glucose 217 mg/dL High 60 - 110 Comprehensive Chem Profile 09/24/2020 [facility], Storage Engineer: Dr Andrew Bills [place], [place] [id number] [phone] Glucose 140 mg/dL High 74 - 99 [...] mL/min Low >60 17 Lipid Profile 09/24/2020 [facility] , Storage Engineer: Dr Andrew Bills [place], [place] [id number] [phone] Cholesterol 120 mg/dL Low 131 - 200 [...] Little GFR Left ESRD GFR <15 on RESTAURANT ASSISTANT 2 DIAGNOSIS CRITERIA MMB ng/ml Relative Index (RI) NON-AMI < or = 5 N/A OSULLIVAN ZONE > 5 < or = 4 AMI > 5 > 4 3 Troponin I Reference Interva l for [employer] LOCI: 99th Percentile= 0.00-0.045 ng/ml Risk Stratification: [...] pathogens. DISCLAIMER: Testing was performed using the [employer] SARS-CoV-2 test. This test was developed and its performance characteristics determined by [employer]. This test has not been FDA cleared [...] LITTLE GFR LEFT ESRD GFR <15 ON RESTAURANT ASSISTANT 13 NOTE: CBC VERIFIED 14 Lab Result [...] LITTLE GFR LEFT ESRD GFR <15 ON RESTAURANT ASSISTANT Procedures Date Code Description Status 02/20/2021 39692 Trans Care SRV W/I 14D Of DC, Co mm W/I 2 Dys Med Rec Completed 01/08/2021 99353 Chronic Care MGMT 20 Mins Clinical Staff Time Per Calendar Month Completed 12/31/2020 48563 Office/Outpatient Established Mo d MDM 30-39 Min Completed 12/04/2020 44865 Chronic Care MGMT 20 Mins Clinical Staff Time Per Calendar Month Completed 11/09/2020 52143 Chronic Care MGMT 20 Mins Clinical Staff Time Per Calendar Month Completed 10/01/2020 24773 Chronic Care MGMT 20 Mins Clinical Staff Time Per Calendar Month Completed 10/01/2020 09053 Chronic Care Management Services Ea Addl 20 Min Completed 09/24/2020 87403 Office/Outpatient Established Mo d MDM 30-39 Min Completed 05/09/2020 529158918 Diabetic Retinal Eye Exam Comple [facility] 04/19/2019 441003200 Diabetic Retinal Eye Exam Comple [facility] 04/14/2018 492323448 Diabetic Retinal Eye Exam Comple [facility] 03/27/2017 511074968 Diabetic Retinal Eye Exam Comple [facility] 03/10/2017 651651823 Diabetic Retinal Eye Exam Comple [facility] 05/21/2015 54112095 Mammogram Completed 11/09/2013 974338912 Diabetic Retinal Eye Exam Comple [facility] 03/31/2013 79389649 Mammogram Completed 12/22/2012 294741631 Diabetic Retinal Eye Exam Comple [facility] 11/16/2012 818317607 Diabetic Retinal Eye Exam Comple [facility] 04/08/2012 69856029 Mammogram Completed 07/24/2009 262800732 Bone Mineral Density Test Comple [facility] 11/26/2007 81716797 Mammogram Completed Medical Devices Description No Information Available Encounters Type Date Location Provider Dx Diagnosis Office Visit 02/20/2021 1:40p [facility] [place] G93.41 Metabolic encephalopathy N39.0 Urinary tract infection, sit e not specified 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 E11.65 Type 2 diabetes mellitus wit h hyperglycemia J44.9 Chronic obstructive pulmonar y disease, unspecified E78.00 Pure hypercholesterolemia, u nspecified Z79.4 penitentiary (current) use of i nsulin Office Visit 12/31/2020 11:40a [facility] J44.9 Chronic obstructive pulmonary disease, u nspecified E78.00 Pure hypercholesterolemia, u nspecified 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 E11.65 Type 2 diabetes mellitus wit h hyperglycemia Z79.4 penitentiary (current) use of i nsulin M15.9 Polyosteoarthritis, unspecif ied F11.20 Opioid dependence, uncomplic ated N28.1 Cyst of kidney, acquired D64.9 Anemia, unspecified Office Visit 09/24/2020 10:40a [facility] E11.42 Type 2 diabetes mellitus with diabetic p olyneuropathy E11.65 Type 2 diabetes mellitus wit h hyperglycemia E11.649 Type 2 diabetes mellitus wit h hypoglycemia without coma Z79.4 penitentiary (current) use of i nsulin J44.9 Chronic [...] unspe cified JORI López JR 02/20/2021 Z79.4 penitentiary (current) use of insul in JORI López [...] hy perglycemia Andrew Bills MD 12/31/2020 Z79.4 penitentiary (current) use of insul in Andrew Bills [...] diabetes mellitus with di abetic polyneuropathy Andrew iBlls MD 10/01/2020 J44.9 Chronic obstructive pulmonary di [...] without coma Andrew Bills MD 09/24/2020 Z79.4 penitentiary (current) use of insul in Andrew Bills [...] 2:45 pm - [facility] 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 TLC discussed. Glycemic index discussed. * Z79.4 penitentiary (current) use of insulin * M15.9 Polyosteoarthritis, unspecified * F11.20 Opioid dependence, uncomplicated * N28.1 Cyst of kidney, acquired * D64.9 Anemia, unspecified Functional Status Description No Information Available Mental Status Description No Information Available Referrals Description No Information Available
--- OUTSIDE RECORDS SUMMARY | 2021-06-09 17:20 | CCD | Continuity of Care Document ---
Author Author Meka CARVAJAL DO Organization Unknown Address [address] [facility] [address] [place] [address] Phone [phone] Care Team Providers Care Ground Water Technician Name Role Phone Andrew Carvajal JR, MD AUTM Unavailable SheilaCon lam DO AUTM [phone] [facility] AUTM [phone] [employer] AUTM [phone] Problems Active Problems Provider Date Chronic obstructive lung disease Andrew Carvajal MD Onset : 07/07/2011 Benign essential hypertension Andrew Carvajal MD Onset: 1 09/06/2010 Disorder of nervous system due to diabetes mellitus Andrew Carvajal MD Onset: 07/07/2011 Polyneuropathy due to diabetes mellitus [place] Lomas Onset: 07/07/2011 Pure hypercholesterolemia Andrew Carvajal MD Onset: 07/07 Acquired renal cystic disease Andrew Carvajal MD Onset: 09/06/2010 Essential hypertension Andrew Carvajal MD Onset: 08/27/19 16 Social History Type [...] 1 by mouth every day 90tabs Andrew Carvajal MD 01/01/2021 Shingrix 50mcg/0.5ML Suspension Re c administer 0.5 milliliters intramuscular, repeat in 2 to 6 months 2units Andrew Carvajal MD 09/05/2019 Sertraline HCL 50mg Tablets Take One Tablet By Mouth Every Day 90tabs Andrew Carvajal MD 09/20/2018 Levalbuterol Tartrate 45mcg/Act Ae rosol Inhale 2 Puffs By Mouth Four Times A Day 45units Andrew Carvajal MD 08/16/2018 BD Uf Layla Pen Needle [id number] Use as Directed Two Times A Da y Or as Directed 200units Andrew Carvajal MD 03/24/2018 Bisoprolol Fumarate/Hydrochlorothiazide 10-6.25mg Tablets Take One Tablet By Mouth Every Day 90tabs Andrew Carvajal MD 08/07/2017 Tresiba Flextouch 20 0Unit/ML Solution Pen-Inject inject 54 units under the skin once daily every pm 18units Andrew Carvajal MD 04/15/2017 Novolog Flexpen 100U nit/ML Solution Pen-Inject inject 14 units three times daily with meals 45units Adriana Hanks, ANP 09/29/2014 BD Pen Needle/Layla/Ultra Fine/32G X 4mm 32G X 4 mm Misc test bid or as directed dxE11.65 200units E11.65 Andrew Carvajal MD 07/03/2014 Josias Contour Blood Glucose Test Strips Strips test two times a day as directed E11.9 200units Chevy Carvajal DO 07/03/2014 Hydrocodone-Acetaminophen 5-325mg Tablets 1 by mouth every 6 hour as needed pain 50tabs Andrew Carvajal MD 12/26/2013 Gabapentin 300mg Capsules Take 2 Capsules By Mouth AT Bedtime 180caps Andrew Carvajal MD 2013 Ramipril 10mg Capsules Take One Capsule By Mouth Every Day 90caps Liz Taylor, 11/29/2012 Triamcinolone Acetonide 0.1% Cream Apply To Affected Area(S) Three Times A Day as Needed 30units AROLDO Siu 09/01/2011 Sinus & Allergy 12 Hour 120mg Tablets ER 12HR Andrew Carvajal MD 2010 Advair Diskus 250-50mcg/Dose Aeros ol Inhale One puff By Mouth Twice A Day 60units Andrew Carvajal MD 11/13/2010 Simvastatin 20mg Tablets Take One Tablet By Mouth AT Bedtime 90tabs Andrew Carvajal MD 2009 Medications Administered in Office Medication SIG Qnty Indications Ordering Provider Date Administration Of Flu Vaccine Inj dayan Carvajal MD 05/22/2020 Administration Of Flu Vaccine Inj dayan Carvajal MD 07/10/2017 Administration Of Flu Vaccine Inj dayan Carvajal MD 06/24/2016 Administration Of Flu Vaccine Inj yoelion AROLDO Siu 05/31/2013 Administration Of Flu Vaccine Inj dayan Carvajal MD 05/24/2012 Administration Of Flu Vaccine Inj yoelion Andrew Carvajal MD 07/07/2011 Administration Of Flu Vaccine Inj dayan Carvajal MD 05/30/2010 Administration Of Flu Vaccine Inj dayan Carvajal MD 05/17/2009 Administration Of Flu Vaccine Inj yoelion Surekha Fontanez FNP 06/22/2003 Immunizations CPT Code Status Date Vaccine Lot # [id number] Given 05/22/2020 Influenza Vaccin e Quadrivalent Preser/Antibiotic Free Im Use [id number] U-Flu Given 06/03/2018 Influenza,Unspecified 12652 Given 07/10/2017 Influenza Vaccin e Quadrivalent Preser/Antibiotic Free Im Use [id number] Q2037 Given 06/24/2016 Fluvirin Virus Vaccine 20745 01 15088 Given 09/29/2014 Prevnar 13 [id number] Q2037 Given 05/31/2013 Fluvirin Virus Vaccine 67749 01 Q2037 Given 05/24/2012 Fluvirin Virus Vaccine Q2037 Given 07/07/2011 Fluvirin Virus Vaccine 89366 Given 05/30/2010 Influenza Virus Vaccine 71380 Given 05/17/2009 Influenza Virus Vaccine 57462 Given 07/12/2003 Pneumovax 23 59897 Given 06/22/2003 Influenza Virus Vaccine Vital Signs [...] Result H/L Range Note Laboratory test finding 2021 [place] [employer] dania mejia Dye Boarding Machine Operator: [place] [address] [phone] A1c <pending> Istat Chem8+ Panel 03/26/2021 [facility] nter [address] [place] [address] [phone] iSTAT HCT 31.0 % Low 38.0-51.0 iSTAT Glucose 244 mg/dL High 70-105 iSTAT Sodium 141 mEq/L Normal 136-145 iSTAT Potassium 4.4 mEq/L Normal 3.5-5.1 iSTAT CA++ 4.8 mg/dL Normal 4.5-5.3 iSTAT Chloride 103 mEq/L Normal 98-109 iSTAT Co2 26.0 MM/L Normal 23.0-27.0 iSTAT BUN 18 mg/dL Normal 8-26 iSTAT Creatinine 0.7 mg/dL Normal 0.6-1.3 Cardiac Marker Panel 02/05/2021 [facility] enter [address] [id number] [phone] CPK Creatine Phosphokinase 145 U/L Normal 26-19 2 CK-MB Value Mass 1.9 NG/ML Normal <3.6 MB/CK Relative Index 1.31 Normal < Or =4 1 Troponin I < 0.02 NG/ML Normal < 0.10 2 Ua W/ Reflex To Culture 02/05/2021 [facility] [address] [place] [address] [phone] Appearance, Urine RFX TURBID High Clear Color, Urine RFX YELLOW Normal Yellow PH,Urine RFX 5.0 units Normal 5.0-9.0 Specific Jackson Ur Auto RFX 1.014 Normal 1.002-1.035 Protein, [...] /LPF Normal 0-1 Laboratory test finding 02/05/[address] [address] [phone] Thyroid Stimulating Hormone 2.130 uIU/ML Normal 0. 358-3.740 Basic Metabolic Profile 02/05/[address] [address] [phone] Glucose, Fasting 269 mg/dL High 70-100 Blood Urea Nitrogen 22 mg/dL High 7-18 Creatinine For GFR 0.90 mg/dL Normal 0.55-1.30 Glomerular Filtration Rate > 60.0 Normal >32 3 Sodium Level 134 mEq/L Low 136-145 Potassium Serum 4.6 mEq/L Normal 3.5-5.1 Chloride Level 103 mEq/L Normal 98-107 Carbon Dioxide Level 23 mEq/L Normal 21-32 Anion Gap 8 mEq/L Normal 8-16 Calcium Level 9.8 mg/dL Normal 8.8-10.2 Liver Profile 02/05/2021 [facility] nter [address] [place] [address] [phone] Ast/Sgot 21 U/L Normal 7-37 Alt/SGPT 24 U/L Normal 12-78 Alkaline Phosphatase 148 U/L High 45-117 Bilirubin,Total 0.8 mg/dL Normal 0.2-1.0 Bilirubin,Direct 0.2 mg/dL Normal 0.0-0.2 Total Protein 8.9 GM/DL High 6.4-8.2 Albumin 3.9 GM/DL Normal 3.2-5.2 Albumin/Globulin Ratio 0.8 Low 1.2-2.2 CBC With Differential 02/05/[address] [address] [phone] White Blood Count 11.5 10 High 4.0-10.0 [...] 36.0-66.0 Lymph % 20.2 % Low 24.0-44.0 Maries % 11.8 % High 2.0-8.0 Eos % 0.6 % Normal 0.0-3.0 Baso % 0.8 % Normal 0.0-1.0 Immature Granulocyte % 0.4 % Normal 0-3.0 Nucleated Red Blood Cell % 0.0 % Normal 0-0 Neutrophils # 7.6 10 Normal 1.5-8.5 Lymph # 2.3 10 Normal 1.5-5.0 Maries # 1.4 10 High 0.0-0.8 Eos # 0.1 10 Normal 0.0-0.5 Baso # 0.1 10 Normal 0.0-0.2 Laboratory test finding 02/05/[address] [address] [phone] Lactic Acid Sepsis Protocol 1.5 mmol/L Normal 0.4- 2.0 4 Laboratory test finding 02/05/2021 [facility] [address] [place] [address] [phone] Bedside Glucose 274 mg/dL High 83-110 Influenza A/B RSV Covid Amp 02/05/2021 [facility] [address] [place], [place] [address] [phone] Influenza A Amplification NEGATIVE Normal Negati ve 5 Influenza B Amplification NEGATIVE Normal Negative 6 RSV Amplification NEGATIVE Normal Negative 7 Sars Covid-19 Amplification NEGATIVE Normal Negative 8 Laboratory test finding 02/05/2021 [facility] [address] [place] [address] [phone] Ammonia 13 uMOL/L Normal <32 Venous Blood Gas 02/05/2021 [facility] nter [address] [place] [address] [phone] Venous PH 7.324 units Low 7.330-7.430 Venous Partial Pressure Co2 47.1 mmHg Normal 38.0-50.0 Venous Partial Pressure O2 40.3 mmHg Normal 30.0-50.0 Venous Total Co2 25.4 mEq/L Normal 24.0-28.0 Venous Hco3 23.9 mEq/L Normal 23.0-27.0 Venous Base Excess -2.3 Low -2.0-2.0 Venous Standard Hco3 22.0 mEq/L Normal Venous O2 Saturation 71.9 % Normal 60.0-80.0 Microalbumin/Creatinine Urine 01/02/2021 [facility] Dye Boarding Machine Operator: [place] [address] [phone] Microalbumin Urine 281.2 mg/L High 1.3 - 20.0 9 Urine Creatinine 265.8 mg/dL High 30.0 - 125.0 Microalb/Creat Ratio 105.8 ug/mg High 0.0 - 30.0 Total Iron Binding Capacit 12/31/2020 [facility] [address] [place] [address] [phone] Iron (Fe) 40 g/dL Low 50-170 Total Iron Binding Capacity 392 g/dL Normal 250-450 Percent Saturation 10.2 % Low 13.2-45.0 Complete Blood Count 12/31/2020 [place] [facility] Dye Boarding Machine Operator: Dr [place] [address] [phone] WBC 11.7 x10*3/UL High 4.1 - 10.9 [...] x10*3/UL High 2.0 - 7.8 A1c 12/31/2020 [facility] Dye Boarding Machine Operator: Dr Andrew [place] [address] [phone] Hba1c 7.5 % High <5.7 10 Est Avg Glucose 169 mg/dL High 60 - 110 Basic Metabolic Panel 12/31/2020 [facility] Dye Boarding Machine Operator: Dr Andrew [place] [address] [phone] Glucose 119 mg/dL High 74 - 99 [...] GFR 58 mL/min Low >60 12 1 DIAGNOSIS CRITERIA MMB ng/ml Relative Index (RI) NON-AMI < or = 5 N/A [place]ULLIVAN ZONE > 5 < or = 4 AMI > 5 > 4 2 Troponin I Reference Interva l for Siemens [place] LOCI: 99th Percentile= 0.00-0.045 ng/ml Risk Stratification: <= 0.10 ng/ml Decreased Risk for Adverse Clinical Events. 0.10-1.50 ng/ml Increased Risk for Adv erse Clinical Events. Evaluation of additional criterion and/or repeat testing in 2-6 hours is suggested to rule out myocardial damage. >= 1.50 ng/ml Indicative of Myocardial Injury. 3 Units are mL/min/1.73 m2 Chronic Kidney Disease Staging per NKF: Stage I & II GFR >=60 Normal to Mildly Decreased Stage III GFR 30-59 Moderately Decreased Stage IV GFR 15-29 Severely Decreased Stage V GFR <15 Very Little GFR Left ESRD GFR <15 on DRAFTSPERSON 4 Y/N query for Sepsis Lactate Rule: [...] pathogens. DISCLAIMER: Testing was performed using the [employer] SARS-CoV-2 test. This test was developed and its performance characteristics determined by [employer]. This test has not been FDA cleared [...] LITTLE GFR LEFT ESRD GFR <15 ON DRAFTSPERSON Procedures Date Code Description Status 02/20/2021 21796 Trans Care SRV W/I 14D Of DC, Co mm W/I 2 Dys Med Rec Completed 01/08/2021 29187 Chronic Care MGMT 20 Mins Clinical Staff Time Per Calendar Month Completed 12/31/2020 79091 Office/Outpatient Established Mo d MDM 30-39 Min Completed 12/04/2020 51928 Chronic Care MGMT 20 Mins Clinical Staff Time Per Calendar Month Completed 11/09/2020 31429 Chronic Care MGMT 20 Mins Clinical Staff Time Per Calendar Month Completed 05/09/2020 [id number] Diabetic Retinal Eye Exam Comple bhanu 04/19/2019 [id number] Diabetic Retinal Eye Exam Comple bhanu 04/14/2018 [id number] Diabetic Retinal Eye Exam Comple bhanu 03/27/2017 [id number] Diabetic Retinal Eye Exam Comple bhanu 03/10/2017 [id number] Diabetic Retinal Eye Exam Comple bhanu 05/21/2015 [id number] Mammogram Completed 11/09/2013 [id number] Diabetic Retinal Eye Exam Comple bhanu 03/31/2013 [id number] Mammogram Completed 12/22/2012 [id number] Diabetic Retinal Eye Exam Comple bhanu 11/16/2012 [id number] Diabetic Retinal Eye Exam Comple bhanu 04/08/2012 [id number] Mammogram Completed 07/24/2009 [id number] Bone Mineral Density Test Comple bhanu 11/26/2007 [id number] Mammogram Completed Medical Devices Description No Information Available Encounters Type Date Location Provider Dx Diagnosis Office Visit 02/20/2021 1:40[facility] 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 E11.65 Type 2 diabetes mellitus wit h hyperglycemia Z79.4 FCI (current) use of i nsulin M15.9 Polyosteoarthritis, unspecif ied F11.20 Opioid dependence, uncomplic ated N28.1 Cyst of kidney, acquired D64.9 Anemia, unspecified Assessments Date Code Description Provider 2021 I10 Essential (primary) hypertension Chevy Carvajal, DO 2021 E11.42 Type 2 diabetes mellitus with di abetic polyneuropathy Chevy Carvajal, 02/20/2021 G93.41 Metabolic encephalopathy JORI López JR [...] unspe cified JORI López JR 02/20/2021 Z79.4 [facility]CI (current) use of insul in JORI López JR 01/08/2021 J44.9 Chronic obstructive pulmonary di sease, unspecified Andrew Carvajal MD 01/08/2021 E78.00 Pure hypercholesterolemia, unspe cified Andrew Carvajal MD 01/08/2021 E11.42 Type 2 diabetes mellitus with di abetic polyneuropathy Andrew Carvajal MD 01/02/2021 E11.42 Type 2 diabetes mellitus with di abetic polyneuropathy Andrew Carvajal MD 01/02/2021 E11.42 Type 2 diabetes mellitus with di abetic polyneuropathy Lab Schedule 01/02/2021 E11.65 Type 2 diabetes mellitus with hy perglycemia Andrew Carvajal MD 01/02/2021 E11.65 Type 2 diabetes mellitus with hy perglycemia Lab Schedule 12/31/2020 J44.9 Chronic obstructive pulmonary di sease, unspecified Andrew Carvajal MD 12/31/2020 E78.00 Pure hypercholesterolemia, unspe cified Andrew Carvajal MD 12/31/2020 E11.42 Type 2 diabetes mellitus with di abetic polyneuropathy Andrew Carvajal MD 12/31/2020 E11.65 Type 2 diabetes mellitus with hy perglycemia Andrew Carvajal MD 12/31/2020 Z79.4 [facility]CI (current) use of insul in Andrew Carvajal MD 12/31/2020 M15.9 Polyosteoarthritis, unspecified Andrew Carvajal MD 12/31/2020 F11.20 Opioid dependence, uncomplicated Andrew Carvajal MD 12/31/2020 N28.1 Cyst of kidney, acquired Andrew Carvajal MD 12/31/2020 D64.9 Anemia, unspecified Andrew monk MD 12/04/2020 E11.65 Type 2 diabetes mellitus with hy perglycemia Andrew Carvajal MD 12/04/2020 J44.9 Chronic obstructive pulmonary di sease, unspecified Andrew Carvajal MD 12/04/2020 E78.00 Pure hypercholesterolemia, unspe cified Andrew Carvajal MD 11/09/2020 J44.9 Chronic obstructive pulmonary di sease, unspecified Andrew Carvajal MD 11/09/2020 E78.00 Pure hypercholesterolemia, unspe cified Andrew Carvajal MD 11/09/2020 F34.1 Dysthymic disorder Andrew montanez MD 11/09/2020 E11.42 Type 2 diabetes mellitus with di abetic polyneuropathy Andrew Carvajal MD Plan of Treatment Future Appointment(s):* 05/03/2021 2:45 pm - Andrew Carvajal MD at [facility], .. 2021 - Chevy Carvajal DO* I10 Essential (primary) hypertension * E11.42 Type 2 diabetes mellitus with diabetic polyneuropathy Functional Status Description No Information Available Mental Status Description No Information Available Referrals Description No Information Available
--- OUTSIDE RECORDS SUMMARY | 2021-06-09 17:20 | CCD | Continuity of Care Document ---
Author Author Meka CARVAJAL DO Organization Unknown Address [address] [facility] [address] [place] [address] Phone [phone] Care Team Providers Care Social Studies Teacher Name Role Phone Andrew Carvajal JR, MD AUTM Unavailable SheilaCon lam DO AUTM [phone] [facility] AUTM [phone] [facility] AUTM [phone] Problems Active Problems Provider Date Chronic obstructive [...] MD 08/16/2018 BD Uf Layla Pen Needle [id number] Use as Directed Two Times A Da [...] CPT Code Status Date Vaccine Lot # [id number] Given 05/22/2020 Influenza Vaccin e Quadrivalent Preser/Antibiotic Free Im Use [id number] U-Flu Given 06/03/2018 Influenza,Unspecified 69691 Given 07/10/2017 Influenza Vaccin e Quadrivalent Preser/Antibiotic Free Im Use [id number] Q2037 Given 06/24/2016 Fluvirin Virus Vaccine 65390 01 28362 Given 09/29/2014 Prevnar 13 [id number] Q2037 Given 05/31/2013 Fluvirin Virus Vaccine 61752 01 Q2037 Given 05/24/2012 Fluvirin Virus Vaccine Q2037 Given 07/07/2011 Fluvirin Virus Vaccine 16674 Given 05/30/2010 Influenza Virus Vaccine 89618 Given 05/17/2009 Influenza Virus Vaccine 22642 Given 07/12/2003 Pneumovax 23 [id number] Given 06/22/2003 Influenza Virus Vaccine Vital Signs [...] Test Result H/L Range Note A1c 2021 [facility] Hvac Sales Engineer: [place] [address] [phone] Hba1c 7.9 % High <5.7 1 Est Avg Glucose 180 mg/dL High 60 - 110 Comprehensive Chem Profile 2021 [facility] Hvac Sales Engineer: [place] [address] [phone] Glucose 92 mg/dL 74 - 99 2 [...] mL/min >60 3 Complete Blood Count 2021 [facility] Hvac Sales Engineer: [place] [address] [phone] WBC 9.7 x10*3/UL 4.1 - 10.9 4 [...] 03/26/2021 [facility] nter [address] [place] [address] [phone] iSTAT HCT 31.0 % Low 38.0-51.0 iSTAT Glucose 244 mg/dL High 70-105 iSTAT Sodium 141 mEq/L Normal 136-145 iSTAT Potassium 4.4 mEq/L Normal 3.5-5.1 iSTAT CA++ 4.8 mg/dL Normal 4.5-5.3 iSTAT Chloride 103 mEq/L Normal 98-109 iSTAT Co2 26.0 MM/L Normal 23.0-27.0 iSTAT BUN 18 mg/dL Normal 8-26 iSTAT Creatinine 0.7 mg/dL Normal 0.6-1.3 Cardiac Marker Panel 02/05/2021 [facility] enter [address] [place], [place] [id number] [phone] CPK Creatine Phosphokinase 145 U/L Normal 26-19 2 CK-MB Value Mass 1.9 NG/ML Normal <3.6 MB/CK Relative Index 1.31 Normal < Or =4 5 Troponin I < 0.02 NG/ML Normal < 0.10 6 Ua W/ Reflex To Culture 02/05/[address] [address] [phone] Appearance, Urine RFX TURBID High Clear Color, Urine RFX YELLOW Normal Yellow PH,Urine RFX 5.0 units Normal 5.0-9.0 Specific [place] Ur Auto RFX 1.014 Normal 1.002-1.035 Protein, [...] /LPF Normal 0-1 Laboratory test finding 02/05/[address] [address] [phone] Thyroid Stimulating Hormone 2.130 uIU/ML Normal 0. 358-3.740 Basic Metabolic Profile 02/05/[address] [address] [phone] Glucose, Fasting 269 mg/dL High 70-100 Blood [...] 9.8 mg/dL Normal 8.8-10.2 Liver Profile [facility] [address] [place], [place] [id number] [phone] Ast/Sgot 21 U/L Normal 7-37 Alt/SGPT 24 U/L Normal 12-78 Alkaline Phosphatase 148 U/L High 45-117 Bilirubin,Total 0.8 mg/dL Normal 0.2-1.0 Bilirubin,Direct 0.2 mg/dL Normal 0.0-0.2 Total Protein 8.9 GM/DL High 6.4-8.2 Albumin 3.9 GM/DL Normal 3.2-5.2 Albumin/Globulin Ratio 0.8 Low 1.2-2.2 CBC With Differential 02/05/[address] [id number] [phone] White Blood Count 11.5 10 High 4.0-10.0 [...] 36.0-66.0 Lymph % 20.2 % Low 24.0-44.0 [place] % 11.8 % High 2.0-8.0 Eos % 0.6 % Normal 0.0-3.0 Baso % 0.8 % Normal 0.0-1.0 Immature Granulocyte % 0.4 % Normal 0-3.0 Nucleated Red Blood Cell % 0.0 % Normal 0-0 Neutrophils # 7.6 10 Normal 1.5-8.5 Lymph # 2.3 10 Normal 1.5-5.0 [place] # 1.4 10 High 0.0-0.8 Eos # 0.1 10 Normal 0.0-0.5 Baso # 0.1 10 Normal 0.0-0.2 Laboratory test finding 02/05/[address] [place] [address] [phone] Lactic Acid Sepsis Protocol 1.5 mmol/L Normal 0.4- 2.0 8 Laboratory test finding 02/05/2021 [facility] [address] [place] [address] [phone] Bedside Glucose 274 mg/dL High 83-110 Influenza A/B RSV Covid Amp 02/05/2021 [facility] [address] [place] [address] [phone] Influenza A Amplification NEGATIVE Normal Negati ve 9 Influenza B Amplification NEGATIVE Normal Negative 10 RSV Amplification NEGATIVE Normal Negative 11 Sars Covid-19 Amplification NEGATIVE Normal Negative 12 Laboratory test finding 02/05/2021 [facility] [address] [place] [address] [phone] Ammonia 13 uMOL/L Normal <32 Venous Blood Gas 02/05/2021 [facility] nter [address] [place] [address] [phone] Venous PH 7.324 units Low 7.330-7.430 Venous Partial Pressure Co2 47.1 mmHg Normal 38.0-50.0 Venous Partial Pressure O2 40.3 mmHg Normal 30.0-50.0 Venous Total Co2 25.4 mEq/L Normal 24.0-28.0 Venous Hco3 23.9 mEq/L Normal 23.0-27.0 Venous Base Excess -2.3 Low -2.0-2.0 Venous Standard Hco3 22.0 mEq/L Normal Venous O2 Saturation 71.9 % Normal 60.0-80.0 Microalbumin/Creatinine Urine 01/02/2021 [facility] Hvac Sales Engineer: Dr Andrew Carvajal [place] [id number] [phone] Microalbumin Urine 281.2 mg/L High 1.3 - 20.0 13 Urine Creatinine 265.8 mg/dL High 30.0 - 125.0 Microalb/Creat Ratio 105.8 ug/mg High 0.0 - 30.0 Total Iron Binding Capacit 12/31/2020 [facility] [address] [place] [address] [phone] Iron (Fe) 40 g/dL Low 50-170 Total Iron Binding Capacity 392 g/dL Normal 250-450 Percent Saturation 10.2 % Low 13.2-45.0 Complete Blood Count 12/31/2020 [facility] Hvac Sales Engineer: [place] [address] [phone] WBC 11.7 x10*3/UL High 4.1 - 10.9 [...] x10*3/UL High 2.0 - 7.8 A1c 12/31/2020 [facility] Hvac Sales Engineer: [place] [address] [phone] Hba1c 7.5 % High <5.7 14 Est Avg Glucose 169 mg/dL High 60 - 110 Basic Metabolic Panel 12/31/2020 [facility] Hvac Sales Engineer: [place] [address] [phone] Glucose 119 mg/dL High 74 - 99 [...] LITTLE GFR LEFT ESRD GFR <15 ON MICROBIOLOGY LABORATORY MANAGER 4 NOTE: CBC VERIFIED 5 DIAGNOSIS CRITERIA MMB ng/ml Relative Index (RI) NON-AMI < or = 5 N/A OSULLIVAN ZONE > 5 < or = 4 AMI > 5 > 4 6 Troponin I Reference Interva l for Ortho-tag LOCI: 99th Percentile= 0.00-0.045 ng/ml Risk Stratification: [...] Little GFR Left ESRD GFR <15 on MICROBIOLOGY LABORATORY MANAGER 8 Y/N query for Sepsis Lactate Rule: [...] pathogens. DISCLAIMER: Testing was performed using the [facility] SARS-CoV-2 test. This test was developed and its performance characteristics determined by [facility]. This test has not been FDA cleared [...] LITTLE GFR LEFT ESRD GFR <15 ON MICROBIOLOGY LABORATORY MANAGER Procedures Date Code Description Status 02/20/2021 99761 Trans Care SRV W/I 14D Of Adali POTTER mm W/I 2 Dys Med Rec Completed 01/08/2021 80313 Chronic Care MGMT 20 Mins Clinical Staff Time Per Calendar Month Completed 12/31/2020 20813 Office/Outpatient Established Mo d MDM 30-39 Min Completed 12/04/2020 00672 Chronic Care MGMT 20 Mins Clinical Staff Time Per Calendar Month Completed 11/09/2020 84473 Chronic Care MGMT 20 Mins Clinical Staff Time Per Calendar Month Completed 05/09/2020 [id number] Diabetic Retinal Eye Exam Comple bhanu 04/19/2019 547461520 Diabetic Retinal Eye Exam Comple bhanu 04/14/2018 [id number] Diabetic Retinal Eye Exam Comple bhanu 03/27/2017 [id number] Diabetic Retinal Eye Exam Comple bhanu 03/10/2017 [id number] Diabetic Retinal Eye Exam Comple bhanu 05/21/2015 [id number] Mammogram Completed 11/09/2013 [id number] Diabetic Retinal Eye Exam Comple bhanu 03/31/2013 [id number] Mammogram Completed 12/22/2012 [id number] Diabetic Retinal Eye Exam Comple bhanu 11/16/2012 876859723 Diabetic Retinal Eye Exam Comple [facility] 04/08/2012 [id number] Mammogram Completed 07/24/2009 [id number] Bone Mineral Density Test Comple bhanu 11/26/2007 [id number] Mammogram Completed Medical Devices Description No Information Available Encounters Type Date Location Provider Dx Diagnosis Office Visit [facility]20[facility] G93.41 Metabolic encephalopathy N39.0 Urinary tract infection, sit e not specified 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 E11.65 Type 2 diabetes mellitus wit h hyperglycemia J44.9 Chronic obstructive pulmonar y disease, unspecified E78.00 Pure hypercholesterolemia, u nspecified Z79.4 custodial (current) use of i nsulin Office Visit 12/31/2020 11:[facility] J44.9 Chronic obstructive pulmonary disease, u nspecified E78.00 Pure hypercholesterolemia, u nspecified 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 E11.65 Type 2 diabetes mellitus wit h hyperglycemia Z79.4 watermaster (current) use of i nsulin M15.9 Polyosteoarthritis, unspecif ied F11.20 Opioid dependence, uncomplic ated N28.1 Cyst of kidney, acquired D64.9 Anemia, unspecified Assessments Date Code Description Provider 2021 I10 Essential (primary) hypertension Chevy Carvajal, 2021 E11.42 Type 2 diabetes mellitus with [...] unspe cified JORI López JR 02/20/2021 Z79.4 watermaster (current) use of insul in JORI López [...] hy perglycemia Andrew Carvajal MD 12/31/2020 Z79.4 custodial (current) use of insul in Andrew Carvajal [...] 2:45 pm - [facility] 12/31/2020 - Andrew Carvajal MD* J44.9 Chronic obstructive pulmonary disease, unspecified * E78.00 Pure hypercholesterolemia, unspecified * E11.42 Type 2 diabetes mellitus with diabetic polyneuropathy * E11.65 Type 2 diabetes mellitus with hyperglycemia* Comments:* ABC's meet goal.Diabetic foot and eye exams up to date. TLC discussed. Glycemic index discussed. * Z79.4 watermaster (current) use of insulin * M15.9 Polyosteoarthritis, unspecified * F11.20 Opioid dependence, uncomplicated * N28.1 Cyst of kidney, acquired * D64.9 Anemia, unspecified Functional Status Description No Information Available Mental Status Description No Information Available Referrals Description No Information Available
--- OUTSIDE RECORDS SUMMARY | 2021-06-09 17:22 | CCD ---
Author Author [facility] Organization [facility] Address Unknown Phone Unavailable Care Team Providers Care Race Steward Name Role Phone NO, PCP Unavailable Unavailable LePine, M Lorenza RECEPTION AGENT Unavailable Unavailable LePine, M Lorenza RECEPTION AGENT Unavailable Unavailable LePine, M Lorenza RECEPTION AGENT Unavailable Unavailable LePine, M Lorenza RECEPTION AGENT Unavailable Unavailable LePine, M Lorenza RECEPTION AGENT Unavailable Unavailable LePine, M Lorenza RECEPTION AGENT Unavailable Unavailable LePine, M Lorenza RECEPTION AGENT Unavailable Unavailable LePine, M Lorenza RECEPTION AGENT Unavailable Unavailable LePine, M Lorenza RECEPTION AGENT Unavailable Unavailable LePine, M Lorenza RECEPTION AGENT Unavailable Unavailable LePine, M Lorenza RECEPTION AGENT Unavailable Unavailable LePine, M Lorenza RECEPTION AGENT Unavailable Unavailable LePine, M Lorenza RECEPTION AGENT Unavailable Unavailable LePine, M Lorenza RECEPTION AGENT Unavailable Unavailable LePine, M Lorenza RECEPTION AGENT Unavailable Unavailable LePine, M Lorenza RECEPTION AGENT Unavailable Unavailable LePine, M Lorenza RECEPTION AGENT Unavailable Unavailable LePine, M Lorenza RECEPTION AGENT Unavailable Unavailable LePine, M Lorenza RECEPTION AGENT Unavailable Unavailable LePine, M Lorenza RECEPTION AGENT Unavailable Unavailable LePine, M Lorenza RECEPTION AGENT Unavailable Unavailable LePine, M Lorenza RECEPTION AGENT Unavailable Unavailable LePine, M Lorenza RECEPTION AGENT Unavailable Unavailable LePine, M Lorenza RECEPTION AGENT Unavailable Unavailable LePine, M Lorenza RECEPTION AGENT Unavailable Unavailable LePine, M Lorenza RECEPTION AGENT Unavailable Unavailable LePine, M Lorenza RECEPTION AGENT Unavailable Unavailable LePine, M Lorenza RECEPTION AGENT Unavailable Unavailable LePine, M Lorenza RECEPTION AGENT Unavailable Unavailable LePine, M Lorenza RECEPTION AGENT Unavailable Unavailable LePine, M Lorenza RECEPTION AGENT Unavailable Unavailable LePine, M Lorenza RECEPTION AGENT Unavailable Unavailable LePine, M Lorenza RECEPTION AGENT Unavailable Unavailable LePine, M Lorenza RECEPTION AGENT Unavailable Unavailable LePine, M Lorenza RECEPTION AGENT Unavailable Unavailable LePine, M Lorenza RECEPTION AGENT Unavailable Unavailable LePine, M Lorenza RECEPTION AGENT Unavailable Unavailable LePine, M Lorenza RECEPTION AGENT Unavailable Unavailable LePine, M Lorenza RECEPTION AGENT Unavailable Unavailable LePine, M Lorenza RECEPTION AGENT Unavailable Unavailable LePine, M Lorenza RECEPTION AGENT Unavailable Unavailable LePine, M Lorenza RECEPTION AGENT Unavailable Unavailable LePine, M Lorenza RECEPTION AGENT Unavailable Unavailable LePine, M Lorenza RECEPTION AGENT Unavailable Unavailable LePine, M Lorenza RECEPTION AGENT Unavailable Unavailable LePine, M Lorenza RECEPTION AGENT Unavailable Unavailable LePine, M Lorenza RECEPTION AGENT Unavailable Unavailable LePine, M Lorenza RECEPTION AGENT Unavailable Unavailable LePine, M Loernza RECEPTION AGENT Unavailable Unavailable LePine, M Lorenza RECEPTION AGENT Unavailable Unavailable LePine, M Lorenza RECEPTION AGENT Unavailable Unavailable LePine, M Lorenza RECEPTION AGENT Unavailable Unavailable LePine, M Lorenza RECEPTION AGENT Unavailable Unavailable LePine, M Lorenza RECEPTION AGENT Unavailable Unavailable LePine, M Lorenza RECEPTION AGENT Unavailable Unavailable LePine, M Lorenza RECEPTION AGENT Unavailable Unavailable PICKERAL JR, J JOON PA-C Unavailable Unavailable PICKERAL JR, J JOON PA-C Unavailable Unavailable PICKERAL JR, J JOON PA-C Unavailable Unavailable PICKERAL JR, J JOON PA-C Unavailable Unavailable PICKERAL JR, J JOON PA-C Unavailable Unavailable PICKERAL JR, J JOON PA-C Unavailable Unavailable PICKERAL JR, J JOON PA-C Unavailable Unavailable PICKERAL JR, J JOON PA-C Unavailable Unavailable PICKERAL JR, J JOON PA-C Unavailable Unavailable PICKERAL JR, J JOON PA-C Unavailable Unavailable PICKERAL JR, J JOON PA-C Unavailable Unavailable PICKERAL JR, J JOON PA-C Unavailable Unavailable PICKERAL JR, J JOON PA-C Unavailable Unavailable PICKERAL JR, J JOON PA-C Unavailable Unavailable PICKERAL JR, J JOON PA-C Unavailable Unavailable PICKERAL JR, J JOON PA-C Unavailable Unavailable PICKERAL JR, J JOON PA-C Unavailable Unavailable PICKERAL JR, J JOON PA-C Unavailable Unavailable PICKERAL JR, J JOON PA-C Unavailable Unavailable PICKERAL JR, J JOON PA-C Unavailable Unavailable PICKERAL JR, J JOON PA-C Unavailable Unavailable PICKERAL JR, J JOON PA-C Unavailable Unavailable PICKERAL JR, J JOON PA-C Unavailable Unavailable PICKERAL JR, J JOON PA-C Unavailable Unavailable PICKERAL JR, J JOON PA-C Unavailable Unavailable PICKERAL JR, J JOON PA-C Unavailable Unavailable PICKERAL JR, J JOON PA-C Unavailable Unavailable Luke Bills MD Unavailable Unavailable Luke Bills MD Unavailable Unavailable Luke Bills MD Unavailable Unavailable Luke Bills MD Unavailable Unavailable Luke Bills MD Unavailable Unavailable Luke Bills MD Unavailable Unavailable [place] MD Unavailable Unavailable SanjuLuke MD Unavailable Unavailable SanjuLuke MD Unavailable Unavailable [place] MD Unavailable Unavailable SanjuLuke MD Unavailable Unavailable SanjuLuke MD Unavailable Unavailable SanjuLuke MD Unavailable Unavailable [place] MD Unavailable Unavailable SanjuLuke MD Unavailable Unavailable [place] MD Unavailable Unavailable SanjuLuke MD Unavailable Unavailable [place] MD Unavailable Unavailable [place] MD Unavailable Unavailable [place] MD Unavailable Unavailable SanjuLuke MD Unavailable Unavailable [place] MD Unavailable Unavailable SanjuLuke MD Unavailable Unavailable SanjuLuke MD Unavailable Unavailable [place] MD Unavailable Unavailable SanjuLuke MD Unavailable Unavailable [place] MD Unavailable Unavailable SanjuLuke MD Unavailable Unavailable [place] MD Unavailable Unavailable SanjuLuke MD Unavailable Unavailable [place] MD Unavailable Unavailable [place] MD Unavailable Unavailable [place] MD Unavailable Unavailable SanjuLuke MD Unavailable Unavailable [place] MD Unavailable Unavailable SanjuLuke MD Unavailable Unavailable [place] MD Unavailable Unavailable SanjuLuke MD Unavailable Unavailable [place] MD Unavailable Unavailable SanjuLuke MD Unavailable Unavailable [place] MD Unavailable Unavailable SanjuLuke perdomo MD Unavailable Unavailable [place] MD Unavailable Unavailable SanjuLuke MD Unavailable Unavailable [place] perdomo MD Unavailable Unavailable SanjuLuke MD Unavailable Unavailable SanjuLuke MD Unavailable Unavailable [place] perdomo MD Unavailable Unavailable SanjuLuke perdomo MD Unavailable Unavailable [place] MD Unavailable Unavailable SanjuLuke MD Unavailable Unavailable [place] MD Unavailable Unavailable [place] MD Unavailable Unavailable [place] MD Unavailable Unavailable SanjuLuke MD Unavailable Unavailable SanjuLuke MD Unavailable Unavailable [place] MD Unavailable Unavailable SanjuLuke MD Unavailable Unavailable SanjuLuke MD Unavailable Unavailable SanjuLuke MD Unavailable Unavailable SanjuLuke MD Unavailable Unavailable SanjuLuke MD Unavailable Unavailable SanjuLuke perdomo MD Unavailable Unavailable [place] MD Unavailable Unavailable [place] MD Unavailable Unavailable SanjuLuke MD Unavailable Unavailable SanjuLuke MD Unavailable Unavailable [place] MD Unavailable Unavailable [place] MD Unavailable Unavailable [place] MD Unavailable Unavailable [place] MD Unavailable Unavailable SanjuLuke MD Unavailable Unavailable [place] MD Unavailable Unavailable [place] MD Unavailable Unavailable SanjuLuke MD Unavailable Unavailable SanjuLuke MD Unavailable Unavailable [place] MD Unavailable Unavailable [place] MD Unavailable Unavailable [place] MD Unavailable Unavailable SanjuLuke MD Unavailable Unavailable [place] MD Unavailable Unavailable SanjuLuke MD Unavailable Unavailable SanjuLuke perdomo MD Unavailable Unavailable [place] perdomo MD Unavailable Unavailable [place] perdomo MD Unavailable Unavailable SanjuLuke perdomo MD Unavailable Unavailable Joycelyn TELLES MD Unavailable Unavailable Joycelyn TELLES MD Unavailable Unavailable Joycelyn TELLES MD Unavailable Unavailable Joycelyn TELLES MD Unavailable Unavailable Joycelyn TELLES MD Unavailable Unavailable Joycelyn TELLES MD Unavailable Unavailable Joycelyn TELLES MD Unavailable Unavailable Joycelyn TELLES MD Unavailable Unavailable Joycelyn TELLES MD Unavailable Unavailable Joycelyn TELLES MD Unavailable Unavailable Joycelyn TELLES MD Unavailable Unavailable Joycelyn TELLES MD Unavailable Unavailable Joycelyn TELLES MD Unavailable Unavailable Joycelyn TELLES MD Unavailable Unavailable ELFEGOJoycelyn MILLER MD Unavailable Unavailable ELFEGOJoycelyn MILLER MD Unavailable Unavailable Joycelyn TELLES MD Unavailable Unavailable ELFEGOJoycelyn MILLER MD Unavailable Unavailable ELFEGOJoycelyn MILLER MD Unavailable Unavailable ELFEGOJoycelyn MILLER MD Unavailable Unavailable SHANTANU, A AFSHIN DO Unavailable Unavailable SHANTANU, A AFSHIN DO Unavailable Unavailable SHANTANU, A AFSHIN DO Unavailable Unavailable SHANTANU, A AFSHIN DO Unavailable Unavailable SHANTANU, A AFSHIN DO Unavailable Unavailable SHANTANU, A AFSHIN DO Unavailable Unavailable SHANTANU, A AFSHIN DO Unavailable Unavailable SHANTANU, A AFSHIN DO Unavailable Unavailable SHANTANU, A AFSHIN DO Unavailable Unavailable SHANTANU, A AFSHIN DO Unavailable Unavailable SHANTANU, A AFSHIN DO Unavailable Unavailable SHANTANU, A AFSHIN DO Unavailable Unavailable SHANTANU, A AFSHIN DO Unavailable Unavailable SHANTANU, A AFSHIN DO Unavailable Unavailable SHANTANU, A AFSHIN DO Unavailable Unavailable SHANTANU, A AFSHIN DO Unavailable Unavailable SHANTANU, A AFSHIN DO Unavailable Unavailable SHANTANU, A AFSHIN DO Unavailable Unavailable SHANTANU, A AFSHIN DO Unavailable Unavailable SHANTANU, A AFSHIN DO Unavailable Unavailable SHANTANU, A AFSHIN DO Unavailable Unavailable SHANTANU, A AFSHIN DO Unavailable Unavailable Re-disclosure Warning The records that you are about to access may contain information from federally-assisted alcohol or drug abuse programs. If such information is present, then the following federally mandated warning applies: This information has been disclosed to you from records protected by federal confidentiality rules (42 CFR part 2). The federal rules prohibit you from making any further disclosure of this information unless further disclosure is expressly permitted by the written consent of the person to whom it pertains or as otherwise permitted by 42 CFR part 2. A general authorization for the release of medical or other information is NOT sufficient for this purpose. The Federal rules restrict any use of the information to criminally investigate or prosecute any alcohol or drug abuse patient.The records that you are about to access may contain highly sensitive health information, the redisclosure of which is protected by Article 27-F of the [facility] Public Health law. If you continue you may have access to information: Regarding HIV / AIDS; Provided by facilities licensed or operated by the [facility] Office of Mental Health; or Provided by the [facility] Office for People With Developmental Disabilities. If such information is present, then the following [facility] mandated warning applies: This information has been disclosed to you from confidential records which are protected by state law. State law prohibits you from making any further disclosure of this information without the specific written consent of the person to whom it pertains, or as otherwise permitted by law. Any unauthorized further disclosure in violation of state law may result in a fine or snf sentence or both. A general authorization for the release of medical or other information is NOT sufficient authorization for further disc losure. Family History Family Member Name Family Member Gender Family Member Status Date o f Status Description Data Source(s) Unknown Unknown Problem [facility] ([facility]) Four brothers all alive. One has diabete s and RA. She had 3 sisters. Two have from complications of diabetes Encounters Encounter Providers Location Date Indications Data Source(s ) Outpatient Attender: Andrew Malik 0 05/03/2021 02:45:00 PM EDT [facility] ([facility] ) Emergency Attender: JACKIE TELLES MDConsultant: PCP NO 03/05/2021 03:55:00 PM EDT - 03/05/2021 06:11:[address] [facility] Patient discharged. Outpatient Attender: JOON Malik 0 02/20/2021 01:40:00 PM EDT [facility] ([facility] ) Outpatient Attender: Andrew Malik 0 12/31/2020 11:40:00 AM EDT [facility] ([facility] ) Outpatient Attender: Andrew Malik 0 09/24/2020 09:40:00 AM EST [facility] ([facility] ) Outpatient Attender: Lorenza Malik 09/11 10:00:00 AM EST [facility] ([facility] ) Outpatient Attender: Andrew Malik 0 08/30/2020 08:20:00 AM EST [facility] ([facility] ) Outpatient Attender: Andrew Malik 0 05/22/2020 10:00:00 AM EDT [facility] ([facility] ) <td ID="encounterTypeDescriptionID0">1 Y ear Follow-Up</td><td>Afshin Sosa DO</td><td>Inderjit Valentine MD [facility]</td><td>05/09/2020</td><td>12:17PM</td><td>1:37PM</td><td><content ID="encounterDiagnosisID0-0">Dry Eye Syndrome</content>, <content ID="encounterDiagnosisID0-1">Pseudophakia</content>, <content ID="encounterDiagnosisID0-2">Assessment of Taking Medication For Diabetes Long- term Use of Insulin</content>, <content ID="encounterDiagnosisID0-3">Vitreous Disorders Degeneration</content>, <content ID="encounterDiagnosisID0-4">Diabetes Mellitus Type 2 Without Complication</content></td>Outpatient Attender: AFSHIN Haley MD [facility] 05/09/2020 12:17:00 PM EDT - 05/09/2020 01:37:00 PM EDT Diabetes Mellitus Type 2 Without Complic ationVitreous Disorders DegenerationAssessment of Taking Medication For Diabetes Long-term Use of InsulinPseudophakiaDry Eye SyndromeDiabetes Mellitus Type 2 Without Complication Vitreous Disorders DegenerationAssessment of Taking Medication For Diabetes Long-term Use of InsulinPseudophakiaDry Eye Syndrome STEPHANIE (Inderjit Interiano MD [facility]) Diabetes Mellitus Type 2 Without Complic ation Vitreous Disorders Degeneration Assessment of Taking Medication For Diab etes Long-term Use of Insulin Pseudophakia Dry Eye Syndrome Diabetes Mellitus Type 2 Without Complic ation Vitreous Disorders Degeneration Assessment of Taking Medication For Diab etes Long-term Use of Insulin Pseudophakia Dry Eye Syndrome Immunizations Vaccine Date Status Description Data Source(s) COVID-19 VACCINE Moderna 11/24/2020 12:00:00 AM EDT completed [facility] Vaccine Series Complete: YESThis Data wa s Submitted to [facility] Via [employer]. COVID-19 VACCINE Moderna 10/26/2020 12:00:00 AM EST completed [facility] Vaccine Series Complete: NOThis Data was Submitted to [facility] Via [employer]. Influenza, injectable, MDCK, preservative free, radha valent 05/22/2020 10:58:00 AM EDT completed [facility] ([facility]) Medications Medication Brand Name Start Date Product Form Dose Route Admi nistrative Instructions Pharmacy Instructions Status Indications Reaction Description Data Source(s) BLOOD-GLUCOSE METER 06/04/2021 12:00:00 AM EDT misc 1 USE DIRECTED USE DIRECTED SOLD: 06/04/2021 [facility] 33 gauge 06/04/2021 12:00:00 AM EDT misc 200 TEST TWICE A DAY TEST TWICE A DAY SOLD: 06/04/2021 [facility] BLOOD SUGAR DIAGNOSTIC 06/04/2021 12:00:00 AM EDT strip 200 TEST TWICE A DAY TEST TWICE A DAY SOLD: 06/04/2021 [facility] Ramipril 10 MG Oral Capsule RAMIPRIL 05/13/2021 12:00:00 AM EDT capsu le 90 TAKE ONE CAPSULE BY MOUTH EVERY DAY TAKE ONE CAPSULE BY MOUTH EVERY DAY SOLD: 05/14/2021 [facility] 24 HR Metformin hydrochloride 500 MG Extended Release Oral T ablet METFORMIN HCL 02/21/2021 12:00:00 AM EDT tablet extended release 24 hr 270 TAKE 1 TAB` BY MOUTH WITH BREAKFAST, 1 TAB` WITH LUNCH, & 2 TABS` WITH SUPPER DAILY TAKE 1 TAB` BY MOUTH WITH BREAKFAST, 1 TAB` WITH LUNCH, & 2 TABS` WITH SUPPER DAILY SOLD: 02/24/2021 [facility] 24 HR Metformin hydrochloride 500 MG Extended Release Oral T ablet METFORMIN HCL 02/21/2021 12:00:00 AM EDT tablet extended release 24 hr 270 TAKE 1 TAB` BY MOUTH WITH BREAKFAST, 1 TAB` WITH LUNCH, & 2 TABS` WITH SUPPER DAILY TAKE 1 TAB` BY MOUTH WITH BREAKFAST, 1 TAB` WITH LUNCH, & 2 TABS` WITH SUPPER DAILY SOLD: 05/01/2021 [facility] 24 HR Metformin hydrochloride 500 MG Extended Release Oral Tablet Metformin HCL ER 02/20/2021 12:00:00 AM EDT ORAL completed [facility] ([facility]) 45 mcg/actuation 01/26/2021 12:00:00 AM EDT HFA aerosol inha ler 45 INHALE 2 PUFFS BY MOUTH FOUR TIMES A DAY INHALE 2 PUFFS BY MOUTH FOUR TIMES A DAY SOLD: 04/09/2021 [facility] 45 mcg/actuation 01/26/2021 12:00:00 AM EDT HFA aerosol inha ler 45 INHALE 2 PUFFS BY MOUTH FOUR TIMES A DAY INHALE 2 PUFFS BY MOUTH FOUR TIMES A DAY SOLD: 01/26/2021 [facility] Metformin hydrochloride 500 MG Oral Tablet METFORMIN HCL 01/10/2021 12:00:00 AM EDT tablet 270 TAKE 1 TABLET BY MOUTH WITH BREAKFAST AND 2 TABLETS WITH SUPPER DAILY TAKE 1 TABLET BY MOUTH WITH BREAKFAST AND 2 TABLETS WI TH SUPPER DAILY SOLD: 01/15/2021 [facility] 325 mg (65 mg iron) 01/01/2021 12:00:00 AM EDT tablet 90 TAKE ONE TABLET BY MOUTH EVERY DAY TAKE ONE TABLET BY MOUTH EVERY DAY SOLD: 04/02/2021 [facility] ferrous sulfate 325 MG Oral Tablet Ferrous Sulfate 01/01/2021 12:00 :00 AM EDT ORAL active [facility] ([facility]) 325 mg (65 mg iron) 01/01/2021 12:00:00 AM EDT tablet 90 TAKE ONE TABLET BY MOUTH EVERY DAY TAKE ONE TABLET BY MOUTH EVERY DAY SOLD: 01/03/2021 [facility] 100 unit/mL (3 mL) 10/23/2020 12:00:00 AM EST insulin pen 45 INJECT 16UNITS UNDER SKIN IN A.M. 18 UNITS WITH LUNCH AND 16 UNITS IN P.M. INJECT 16UNITS UNDER SKIN IN A.M. 18 UNITS WITH LUNCH AND 16 UNITS IN P.M. SOLD: 01/22/2021 [facility] 100 unit/mL (3 mL) 10/23/2020 12:00:00 AM EST insulin pen 45 INJECT 16UNITS UNDER SKIN IN A.M. 18 UNITS WITH LUNCH AND 16 UNITS IN P.M. INJECT 16UNITS UNDER SKIN IN A.M. 18 UNITS WITH LUNCH AND 16 UNITS IN P.M. SOLD: 04/20/2021 [facility] 100 unit/mL (3 mL) 10/23/2020 12:00:00 AM EST insulin pen 45 INJECT 16UNITS UNDER SKIN IN A.M. 18 UNITS WITH LUNCH AND 16 UNITS IN P.M. INJECT 16UNITS UNDER SKIN IN A.M. 18 UNITS WITH LUNCH AND 16 UNITS IN P.M. SOLD: 10/23/2020 [facility] 60 ACTUAT Fluticasone propionate 0.25 MG /ACTUAT / salmeterol 0.05 MG/ACTUAT Dry Powder Inhaler [Advair] 250-50 mcg/dose FLUTICASONE PROPION/SALMETEROL 10/12/2020 12:00:00 AM EST blister with device 60 I NHALE ONE PUFF BY MOUTH TWICE A DAY INHALE ONE PUFF BY MOUTH TWICE A DAY SOLD: 12/08/2020 [facility] 250-50 mcg/dose 10/12/2020 12:00:00 AM EST blister with veena ce 60 INHALE ONE PUFF BY MOUTH TWICE A DAY INHALE ONE PUFF BY MOUTH TWICE A DAY SOLD: 10/14/2020 [facility] 60 ACTUAT Fluticasone propionate 0.25 MG /ACTUAT / salmeterol 0.05 MG/ACTUAT Dry Powder Inhaler [Advair] 250-50 mcg/dose FLUTICASONE PROPION/SALMETEROL 10/12/2020 12:00:00 AM EST blister with device 60 I NHALE ONE PUFF BY MOUTH TWICE A DAY INHALE ONE PUFF BY MOUTH TWICE A DAY SOLD: 02/03/2021 [facility] 60 ACTUAT Fluticasone propionate 0.25 MG /ACTUAT / salmeterol 0.05 MG/ACTUAT Dry Powder Inhaler [Advair] 250-50 mcg/dose FLUTICASONE PROPION/SALMETEROL 10/12/2020 12:00:00 AM EST blister with device 60 I NHALE ONE PUFF BY MOUTH TWICE A DAY INHALE ONE PUFF BY MOUTH TWICE A DAY SOLD: 03/30/2021 [facility] 60 ACTUAT Fluticasone propionate 0.25 MG /ACTUAT / salmeterol 0.05 MG/ACTUAT Dry Powder Inhaler [Advair] 250-50 mcg/dose FLUTICASONE PROPION/SALMETEROL 10/12/2020 12:00:00 AM EST blister with device 60 I NHALE ONE PUFF BY MOUTH TWICE A DAY INHALE ONE PUFF BY MOUTH TWICE A DAY SOLD: 01/06/2021 [facility] 250-50 mcg/dose 10/12/2020 12:00:00 AM EST blister with veena ce 60 INHALE ONE PUFF BY MOUTH TWICE A DAY INHALE ONE PUFF BY MOUTH TWICE A DAY SOLD: 11/11/2020 [facility] 60 ACTUAT Fluticasone propionate 0.25 MG /ACTUAT / salmeterol 0.05 MG/ACTUAT Dry Powder Inhaler [Advair] 250-50 mcg/dose FLUTICASONE PROPION/SALMETEROL 10/12/2020 12:00:00 AM EST blister with device 60 I NHALE ONE PUFF BY MOUTH TWICE A DAY INHALE ONE PUFF BY MOUTH TWICE A DAY SOLD: 05/30/2021 [facility] 60 ACTUAT Fluticasone propionate 0.25 MG /ACTUAT / salmeterol 0.05 MG/ACTUAT Dry Powder Inhaler [Advair] 250-50 mcg/dose FLUTICASONE PROPION/SALMETEROL 10/12/2020 12:00:00 AM EST blister with device 60 I NHALE ONE PUFF BY MOUTH TWICE A DAY INHALE ONE PUFF BY MOUTH TWICE A DAY SOLD: 03/02/2021 [facility] 60 ACTUAT Fluticasone propionate 0.25 MG /ACTUAT / salmeterol 0.05 MG/ACTUAT Dry Powder Inhaler [Advair] 250-50 mcg/dose FLUTICASONE PROPION/SALMETEROL 10/12/2020 12:00:00 AM EST blister with device 60 I NHALE ONE PUFF BY MOUTH TWICE A DAY INHALE ONE PUFF BY MOUTH TWICE A DAY SOLD: 05/01/2021 [facility] 300 mg 10/06/2020 12:00:00 AM EST capsule 180 TAKE 2 CAPSULES BY MOUTH AT BEDTIME TAKE 2 CAPSULES BY MOUTH AT BEDTIME SOLD: 10/09/2020 [facility] 300 mg 10/06/2020 12:00:00 AM EST capsule 180 TAKE 2 CAPSULES BY MOUTH AT BEDTIME TAKE 2 CAPSULES BY MOUTH AT BEDTIME SOLD: 04/04/2021 [facility] 300 mg 10/06/2020 12:00:00 AM EST capsule 180 TAKE 2 CAPSULES BY MOUTH AT BEDTIME TAKE 2 CAPSULES BY MOUTH AT BEDTIME SOLD: 01/06/2021 [facility] 20 mg 09/26/2020 12:00:00 AM EST tablet 90 TAKE ONE TABLET BY MOUTH AT BEDTIME TAKE ONE TABLET BY MOUTH AT BEDTIME SOLD: 12/24/2020 [facility] 20 mg 09/26/2020 12:00:00 AM EST tablet 90 TAKE ONE TABLET BY MOUTH AT BEDTIME TAKE ONE TABLET BY MOUTH AT BEDTIME SOLD: 03/24/2021 [facility] 20 mg 09/26/2020 12:00:00 AM EST tablet 90 TAKE ONE TABLET BY MOUTH AT BEDTIME TAKE ONE TABLET BY MOUTH AT BEDTIME SOLD: 09/27/2020 [facility] 50 mg 08/23/2020 12:00:00 AM EST tablet 90 TAKE ONE TABLET BY MOUTH EVERY DAY TAKE ONE TABLET BY MOUTH EVERY DAY SOLD: 08/25/2020 [facility] 50 mg 08/23/2020 12:00:00 AM EST tablet 90 TAKE ONE TABLET BY MOUTH EVERY DAY TAKE ONE TABLET BY MOUTH EVERY DAY SOLD: 05/19/2021 [facility] 50 mg 08/23/2020 12:00:00 AM EST tablet 90 TAKE ONE TABLET BY MOUTH EVERY DAY TAKE ONE TABLET BY MOUTH EVERY DAY SOLD: 11/23/2020 [facility] 50 mg 08/23/2020 12:00:00 AM EST tablet 90 TAKE ONE TABLET BY MOUTH EVERY DAY TAKE ONE TABLET BY MOUTH EVERY DAY SOLD: 02/19/2021 [facility] 32 gauge x 5/32" 08/15/2020 12:00:00 AM EST needle 200 USE TWO TIMES A DAY AND DIRECTED USE TWO TIMES A DAY AND DIRECTED SOLD: 02/19/2021 [facility] 32 gauge x 5/32" 08/15/2020 12:00:00 AM EST needle 200 USE TWO TIMES A DAY AND DIRECTED USE TWO TIMES A DAY AND DIRECTED SOLD: 08/25/2020 [facility] 32 gauge x 5/32" 08/15/2020 12:00:00 AM EST needle 200 USE TWO TIMES A DAY AND DIRECTED USE TWO TIMES A DAY AND DIRECTED SOLD: 05/19/2021 [facility] 32 gauge x 5/32" 08/15/2020 12:00:00 AM EST needle 200 USE TWO TIMES A DAY AND DIRECTED USE TWO TIMES A DAY AND DIRECTED SOLD: 11/23/2020 [facility] 10-6.25 mg 07/24/2020 12:00:00 AM EST tablet 90 TAKE ONE TABLET BY MOUTH EVERY DAY TAKE ONE TABLET BY MOUTH EVERY DAY SOLD: 04/16/2021 [facility] 10-6.25 mg 07/24/2020 12:00:00 AM EST tablet 90 TAKE ONE TABLET BY MOUTH EVERY DAY TAKE ONE TABLET BY MOUTH EVERY DAY SOLD: 10/21/2020 [facility] 10-6.25 mg 07/24/2020 12:00:00 AM EST tablet 90 TAKE ONE TABLET BY MOUTH EVERY DAY TAKE ONE TABLET BY MOUTH EVERY DAY SOLD: 01/17/2021 [facility] 10-6.25 mg 07/24/2020 12:00:00 AM EST tablet 90 TAKE ONE TABLET BY MOUTH EVERY DAY TAKE ONE TABLET BY MOUTH EVERY DAY SOLD: 07/24/2020 [facility] 200 unit/mL (3 mL) 07/11/2020 12:00:00 AM EST insulin pen 18 INJECT 96 UNITS UNDER THE SKIN ONCE DAILY INJECT 96 UNITS UNDER THE SKIN ONCE DAILY SOLD: 04/02/2021 [facility] 200 unit/mL (3 mL) 07/11/2020 12:00:00 AM EST insulin pen 18 INJECT 96 UNITS UNDER THE SKIN ONCE DAILY INJECT 96 UNITS UNDER THE SKIN ONCE DAILY SOLD: 01/17/2021 [facility] 200 unit/mL (3 mL) 07/11/2020 12:00:00 AM EST insulin pen 18 INJECT 96 UNITS UNDER THE SKIN ONCE DAILY INJECT 96 UNITS UNDER THE SKIN ONCE DAILY SOLD: 09/29/2020 [facility] 200 unit/mL (3 mL) 07/11/2020 12:00:00 AM EST insulin pen 18 INJECT 96 UNITS UNDER THE SKIN ONCE DAILY INJECT 96 UNITS UNDER THE SKIN ONCE DAILY SOLD: 02/24/2021 [facility] 200 unit/mL (3 mL) 07/11/2020 12:00:00 AM EST insulin pen 18 INJECT 96 UNITS UNDER THE SKIN ONCE DAILY INJECT 96 UNITS UNDER THE SKIN ONCE DAILY SOLD: 11/04/2020 [facility] 200 unit/mL (3 mL) 07/11/2020 12:00:00 AM EST insulin pen 18 INJECT 96 UNITS UNDER THE SKIN ONCE DAILY INJECT 96 UNITS UNDER THE SKIN ONCE DAILY SOLD: 05/09/2021 [facility] 200 unit/mL (3 mL) 07/11/2020 12:00:00 AM EST insulin pen 18 INJECT 96 UNITS UNDER THE SKIN ONCE DAILY INJECT 96 UNITS UNDER THE SKIN ONCE DAILY SOLD: 07/12/2020 [facility] 200 unit/mL (3 mL) 07/11/2020 12:00:00 AM EST insulin pen 18 INJECT 96 UNITS UNDER THE SKIN ONCE DAILY INJECT 96 UNITS UNDER THE SKIN ONCE DAILY SOLD: 08/25/2020 [facility] 200 unit/mL (3 mL) 07/11/2020 12:00:00 AM EST insulin pen 18 INJECT 96 UNITS UNDER THE SKIN ONCE DAILY INJECT 96 UNITS UNDER THE SKIN ONCE DAILY SOLD: 12/11/2020 [facility] Administration Of Flu Vaccine 05/22/2020 12:00:00 AM EDT completed [facility] ([place] [facility]) Medication administered onsite 5-325 mg 05/22/2020 12:00:00 AM EDT tablet 50 TAKE ONE TABLET BY MOUTH EVERY 6 HOURS NEEDED FOR PAIN MAXIMUM DAILY DOSE = 4 TABLETS TAKE ONE TABLET BY MOUTH EVERY 6 HOURS NEEDED FOR PAIN MAXIMUM DAILY DOSE = 4 TABLETS SOLD: 05/22/2020 [facility] 45 mcg/actuation 04/04/2020 12:00:00 AM EDT HFA aerosol inha ler 45 INHALE 2 PUFFS BY MOUTH FOUR TIMES A DAY INHALE 2 PUFFS BY MOUTH FOUR TIMES A DAY SOLD: 06/17/2020 [facility] 45 mcg/actuation 04/04/2020 12:00:00 AM EDT HFA aerosol inha ler 45 INHALE 2 PUFFS BY MOUTH FOUR TIMES A DAY INHALE 2 PUFFS BY MOUTH FOUR TIMES A DAY SOLD: 08/28/2020 [facility] 45 mcg/actuation 04/04/2020 12:00:00 AM EDT HFA aerosol inha ler 45 INHALE 2 PUFFS BY MOUTH FOUR TIMES A DAY INHALE 2 PUFFS BY MOUTH FOUR TIMES A DAY SOLD: 11/11/2020 [facility] Ramipril 10 MG Oral Capsule RAMIPRIL 01/24/2020 12:00:00 AM EDT capsu le 90 TAKE ONE CAPSULE BY MOUTH EVERY DAY TAKE ONE CAPSULE BY MOUTH EVERY DAY SOLD: 01/15/2021 [facility] Ramipril 10 MG Oral Capsule RAMIPRIL 01/24/2020 12:00:00 AM EDT capsu le 90 TAKE ONE CAPSULE BY MOUTH EVERY DAY TAKE ONE CAPSULE BY MOUTH EVERY DAY SOLD: 10/18/2020 [facility] Ramipril 10 MG Oral Capsule RAMIPRIL 01/24/2020 12:00:00 AM EDT capsu le 90 TAKE ONE CAPSULE BY MOUTH EVERY DAY TAKE ONE CAPSULE BY MOUTH EVERY DAY SOLD: 04/24/2020 [facility] Ramipril 10 MG Oral Capsule RAMIPRIL 01/24/2020 12:00:00 AM EDT capsu le 90 TAKE ONE CAPSULE BY MOUTH EVERY DAY TAKE ONE CAPSULE BY MOUTH EVERY DAY SOLD: 07/22/2020 [facility] Metformin hydrochloride 500 MG Oral Tablet METFORMIN HCL 01/12/2020 12:00:00 AM EDT tablet 270 TAKE 1 TABLET BY MOUTH WITH BREAKFAST AND 2 TABLETS WITH SUPPER DAILY TAKE 1 TABLET BY MOUTH WITH BREAKFAST AND 2 TABLETS WI TH SUPPER DAILY SOLD: 10/09/2020 [facility] 500 mg 01/12/2020 12:00:00 AM EDT tablet 270 TAKE 1 TABLET BY MOUTH WITH BREAKFAST AND 2 TABLETS WITH SUPPER DAILY TAKE 1 TABLET BY MOUTH WITH BREAKFAST AND 2 TABLETS WITH SUPPER DAILY SOLD: 04/10/2020 [facility] Metformin hydrochloride 500 MG Oral Tablet METFORMIN HCL 01/12/2020 12:00:00 AM EDT tablet 270 TAKE 1 TABLET BY MOUTH WITH BREAKFAST AND 2 TABLETS WITH SUPPER DAILY TAKE 1 TABLET BY MOUTH WITH BREAKFAST AND 2 TABLETS WI TH SUPPER DAILY SOLD: 07/10/2020 [facility] 100 unit/mL (3 mL) 11/01/2019 12:00:00 AM EDT insulin pen 45 INJECT 16 UNITS UNDER SKIN IN A.M.18 UNITS W/LUNCH 16 UNITS IN THE P.M. INJECT 16 UNITS UNDER SKIN IN A.M.18 UNITS W/LUNCH 16 UNITS IN THE P.M. SOLD: 07/24/2020 [facility] 100 unit/mL (3 mL) 11/01/2019 12:00:00 AM EDT insulin pen 45 INJECT 16 UNITS UNDER SKIN IN A.M.18 UNITS W/LUNCH 16 UNITS IN THE P.M. INJECT 16 UNITS UNDER SKIN IN A.M.18 UNITS W/LUNCH 16 UNITS IN THE P.M. SOLD: 04/26/2020 [facility] 300 mg 10/18/2019 12:00:00 AM EST capsule 180 TAKE 2 CAPSULES BY MOUTH AT BEDTIME TAKE 2 CAPSULES BY MOUTH AT BEDTIME SOLD: 07/10/2020 [facility] 300 mg 10/18/2019 12:00:00 AM EST capsule 180 TAKE 2 CAPSULES BY MOUTH AT BEDTIME TAKE 2 CAPSULES BY MOUTH AT BEDTIME SOLD: 04/10/2020 [facility] 20 mg 10/07/2019 12:00:00 AM EST tablet 90 TAKE ONE TABLET BY MOUTH AT BEDTIME TAKE ONE TABLET BY MOUTH AT BEDTIME SOLD: 06/30/2020 [facility] 250-50 mcg/dose 09/15/2019 12:00:00 AM EST blister with veena ce 60 INHALE ONE PUFF BY MOUTH TWICE A DAY INHALE ONE PUFF BY MOUTH TWICE A DAY SOLD: 05/22/2020 [facility] 250-50 mcg/dose 09/15/2019 12:00:00 AM EST blister with veena ce 60 INHALE ONE PUFF BY MOUTH TWICE A DAY INHALE ONE PUFF BY MOUTH TWICE A DAY SOLD: 08/25/2020 [facility] 250-50 mcg/dose 09/15/2019 12:00:00 AM EST blister with veena ce 60 INHALE ONE PUFF BY MOUTH TWICE A DAY INHALE ONE PUFF BY MOUTH TWICE A DAY SOLD: 06/19/2020 [facility] 250-50 mcg/dose 09/15/2019 12:00:00 AM EST blister with veena ce 60 INHALE ONE PUFF BY MOUTH TWICE A DAY INHALE ONE PUFF BY MOUTH TWICE A DAY SOLD: 04/24/2020 [facility] 250-50 mcg/dose 09/15/2019 12:00:00 AM EST blister with veena ce 60 INHALE ONE PUFF BY MOUTH TWICE A DAY INHALE ONE PUFF BY MOUTH TWICE A DAY SOLD: 07/17/2020 [facility] 50 mg 09/06/2019 12:00:00 AM EST tablet 90 TAKE ONE TABLET BY MOUTH EVERY DAY TAKE ONE TABLET BY MOUTH EVERY DAY SOLD: 05/27/2020 [facility] 10-6.25 mg 08/06/2019 12:00:00 AM EST tablet 90 TAKE ONE TABLET BY MOUTH EVERY DAY TAKE ONE TABLET BY MOUTH EVERY DAY SOLD: 04/26/2020 [facility] 200 unit/mL (3 mL) 06/14/2019 12:00:00 AM EDT insulin pen 18 INJECT 96 UNITS UNDER THE SKIN ONCE DAILY INJECT 96 UNITS UNDER THE SKIN ONCE DAILY SOLD: 04/30/2020 [facility] 200 unit/mL (3 mL) 06/14/2019 12:00:00 AM EDT insulin pen 18 INJECT 96 UNITS UNDER THE SKIN ONCE DAILY INJECT 96 UNITS UNDER THE SKIN ONCE DAILY SOLD: 06/05/2020 [facility] 32 gauge x 5/32" 06/04/2019 12:00:00 AM EDT needle 200 USE DIRECTED TWO TIMES A DAY OR DIRECTED USE DIRECTED TWO TIMES A DAY OR DIRECTED SOLD: 05/19/2020 [facility] Insurance Providers Payer name Policy type / Coverage type Policy ID Covered libertarian ID Covered libertarian's relationship to barobza Policy Barbo[employer] Plan Information [employer] Commercial Advantage Plus [id number] Self Advantage Plus [id number] [employer] Commercial [id number] Self [id number] [employer] Commercial [id number] Self [id number] [employer] Commercial [id number] Self [id number] [employer] Commercial [id number] Self [id number] [employer] [id number] SP [id number] WELLCARE [id number] SP [id number] [place] [id number] [place] [id number] Wellcare/T[employer]mcr Commercial [id number] Self [id number] WELL[employer] MEDICARE [id number] [place] 06 [id number] [employer]/[place] O [id number] S [id number] WELLCARE O [id number] S [id number] WELLCARE -O/P [id number] 18 [id number] MEDICARE [id number] SP [id number] Problems, Conditions, and Diagnoses Code Display Name Description Problem Type Effective Dates Data Source(s) Z794 care home (current) use of insulin care home (cu rrent) use of insulin Diagnosis 03/05/2021 03:55:00 PM EDT [facility] E119 Type 2 diabetes mellitus without complic ations Type 2 diabetes mellitus without complications Diagnosis 03/05/2021 03:55:00 PM EDT [facility] I10 Essential (primary) hypertension Essential (primary) h ypertension Diagnosis 03/05/2021 03:55:00 PM EDT [facility] R531 Weakness Weakness Diagnosis 03/05/2021 03:55:00 PM ED T [facility] Surgeries/Procedures Procedure Description Date Indications Data Source(s) OFFICE OUTPATIENT VISIT 25 MINUTES 05/03/2021 12:00:00 AM EDT [facility] ([facility]) Trans Care SRV W/I 14D Of DC, Comm W/I 2 Dys Med Rec 02/20/2021 12:00:00 AM EDT [facility] ([facility] ) Chronic Care MGMT 20 Mins Clinical Staff Time Per Calendar M ont 01/08/2021 12:00:00 AM EDT [facility] ([facility] ) OFFICE OUTPATIENT VISIT 25 MINUTES 12/31/2020 12:00:00 AM EDT [facility] ([facility]) Chronic Care MGMT 20 Mins Clinical Staff Time Per Calendar M [facility] 12/04/2020 12:00:00 AM EDT [facility] ([facility] ) Chronic Care MGMT 20 Mins Clinical Staff Time Per Calendar M [facility] 11/09/2020 12:00:00 AM EDT [facility] ([facility] ) Chronic Care Management Services Ea Addl 20 Min 2020 12:00:00 AM EST [facility] ([facility]) Chronic Care MGMT 20 Mins Clinical Staff Time Per Calendar [facility] 10/01/2020 12:00:00 AM EST [facility] ([facility] ) OFFICE OUTPATIENT VISIT 25 MINUTES 09/24/2020 12:00:00 AM EST [facility] ([facility]) Impacted Cerumen Irrigat/Lavage 09/11/2020 12:00:00 AM EST [facility] ([facility]) OFFICE OUTPATIENT VISIT 15 MINUTES 09/11/2020 12:00:00 AM EST [facility] ([facility]) Trans Care SRV W/I 14D Of DC, Comm W/I 2 Dys Med Rec 08/30/2020 12:00:00 AM EST [facility] ([facility] ) Diabetic Retinal Eye Exam 05/09/2020 12:00:00 AM EDT [facility] ([facility]) Intermediate Eye Exam Established Patient Intermediate Eye Exam Established Patient 05/09/2020 12:00:00 AM EDT STEPHANIE (Miguel Interiano MD [facility]) Intermediate Eye Exam Established Patient Intermediate Eye Exam Established Patient 05/09/2020 12:00:00 AM EDT STEPHANIE (Miguel Interiano MD [facility]) Results ID Date Data Source [id number] 05/06/2021 08:00:00 AM EDT [facility] ([facility]) Name Value Range Interpretation Code Description Data Aura rce(s) Supporting Document(s) Microalbumin Urine 83.9 mg/L 1.3-20.0 [facility] ([facility]) Urine Creatinine 78.3 mg/dL 30.0-125.0 [facility] ([facility]) Microalb/Creat Ratio 107.2 ug/mg 0.0-30.0 [facility] ([facility]) ID Date Data Source [id number] 05/03/2021 02:31:00 PM EDT [facility] ([facility]) Name Value Range Interpretation Code Description Data Aura rce(s) Supporting Document(s) Glucose [Mass/volume] in Serum or Plasma 167 mg/dL 74-99 [facility] ([facility]) 100-125 mg/dL PRE-DIABETES/FASTING >126 mg/dL DIABETES/FASTING Urea nitrogen [Mass/volume] in Serum or Plasma 24 mg/dL 7-18 [facility] ([facility]) Creatinine 1.0 mg/dL 0.6-1.3 [facility] Sodium [Moles/volume] in Serum or Plasma 142 meq/L 136-145 [facility] ([facility]) Potassium [Moles/volume] in Serum or Plasma 4.1 meq/L 3.5-5.1 [facility] ([facility]) Chloride [Moles/volume] in Serum or Plasma 106 meq/L 98-107 [facility] ([facility]) Carbon dioxide, total [Moles/volume] in Serum or Plasma 26 meq/L 21 -32 [facility] ([facility]) Alkaline phosphatase isoenzyme [Units/volume] in Serum or Pl asma 134 mg/dL 46-116 [facility] ([facility]) Calcium [Mass/volume] in Serum or Plasma 9.1 mg/dL 8.5-10.1 [facility] ([facility]) Aspartate aminotransferase [Enzymatic activity/volume] in Serum or Plasma 33 U/L 15-37 [facility] ([facility] ) Alanine aminotransferase [Enzymatic activity/volume] in Seru m or Plasma 27 U/L 12-78 [facility] ([facility]) Total Bilirubin 0.7 mg/dL 0.2-1.0 [facility] ([facility]) A/G Ratio 0.76 CALC 1.00-1.90 [facility] ([place] [facility]) Proteinase 3 Ab [Units/volume] in Serum 8.8 g/dL 6.4-8.2 [facility]) Albumin [Mass/volume] in Serum or Plasma 3.8 g/dL 3.4-5.0 [facility] ([facility]) Glomerular filtration rate/1.73 sq M pre dicted among blacks [Volume Rate/Area] in Serum or Plasma by Creatinine-based formula (MDRD) Laboratory test result [facility] [facility] <content>CHRONIC KIDNEY DISEASE STAGING PER NKF</content>
<content></content>
<content>STAGE I & II GFR >= 60 NORMAL TO MILDLY DECREASED</content>
<content>STAGE III GFR 30-59 MODERATELY DECREASED</content>
<content>STAGE IV GFR 15-29 SEVERELY DECREASED</content>
<content>STAGE V GFR <15 VERY LITTLE GFR LEFT</content>
<content>ESRD GFR <15 ON [employer]ANCIAL SERVICES SPECIALIST</content>
<content></content> Glomerular filtration rate/1.73 sq M pre dicted among non-blacks [Volume Rate/Area] in Serum or Plasma by Creatinine-based formula (MDRD) 53 mL/min [facility] ([place] [facility] ID Date Data Source [id number] 05/03/2021 02:31:00 PM EDT [facility] Name Value Range Interpretation Code Description Data Aura rce(s) Supporting Document(s) Hemoglobin A1c/Hemoglobin.total in Blood 8.0 % [facility] ([place] [facility] Lab Result Notes: Pre-Diabetes 5.7 - 6.4 % Diabetes = or > 6.5% Glucose mean value [Mass/volume] in Blood Estimated fr om glycated hemoglobin 183 mg/dL 60-110 [facility] ([place] [facility] ID Date Data Source [id number] 05/03/2021 02:31:00 PM EDT [facility] Name Value Range Interpretation Code Description Data Aura rce(s) Supporting Document(s) Leukocytes [#/volume] in Blood by Automated count 9.1 x10*3/UL 4.1-10 .9 [facility] ([facility]) Hemoglobin [Mass/volume] in Blood 9.4 g/dL 12.0-18.0 [facility] ([facility]) NOTE: RESULT VERIFIED. Erythrocytes [#/volume] in Blood by Automated count 3.32 x10*6/UL 4.2 0-6.30 [facility] ([place] [facility] Hematocrit [Volume Fraction] of Blood by Automated count 29.0 % 3 7.0-51.0 [facility] ([facility]) MCV 87.4 fL 80.0-97.0 [facility] ([place] [facility]) Erythrocyte distribution width [Ratio] by Automated count 15.0 % 11.6-13.7 [facility] ([facility]) MCHC 32.5 g/dL 31.0-38.0 [facility] ([place] [facility]) MCH 28.4 pg 26.0-32.0 [facility] ([place] [facility]) Lymph % 28.2 % 10.0-58.5 [facility] ([place] [facility]) MPV 8.5 FL 7.8-11.0 [facility] ([facility]) Platelets [#/volume] in Blood by Automated count 309 x10*3/UL 140-440 [facility] ([facility]) Neut % 65.0 % 37.0-92.0 [facility] ([facility]) Lymph # 2.5 x10*3/UL 0.6-4.1 [facility] ([facility]) Mid % 6.8 % 1.7-9.3 [facility] ([place] [facility]) Mid # 0.7 x10*3/UL 0.1-0.6 [facility] ([facility]) Neut # 5.9 x10*3/UL 2.0-7.8 [facility] ([facility]) ID Date Data Source [id number] 05/03/2021 02:31:00 PM EDT [facility] ([facility]) Name Value Range Interpretation Code Description Data Aura rce(s) Supporting Document(s) Hemoglobin A1c/Hemoglobin.total in Blood Laboratory test result [facility] ([facility]) ID Date Data Source [id number] 04/19/2021 10:54:00 AM EDT [facility] ([facility]) Name Value Range Interpretation Code Description Data Aura rce(s) Supporting Document(s) Ferritin [Mass/volume] in Serum or Plasma 38 ng/mL 8-252 [facility] [facility] ID Date Data Source [id number] 04/19/2021 10:54:00 AM EDT [facility] Name Value Range Interpretation Code Description Data Aura rce(s) Supporting Document(s) Iron (Fe) 49 ug/dL 50-170 [facility] ([place] [facility]) Percent Saturation 13.2 % 13.2-45.0 [facility] Total Iron Binding Capacity 371 ug/dL 250-450 [facility] ([facility]) ID Date Data Source [id number] 04/19/2021 10:53:00 AM EDT [facility] Name Value Range Interpretation Code Description Data Aura rce(s) Supporting Document(s) Hemoglobin [Mass/volume] in Blood 9.9 g/dL 12.0-18.0 [facility] ([facility]) Leukocytes [#/volume] in Blood by Automated count 9.4 x10*3/UL 4.1-10 .9 [facility] ([facility]) NOTE: CBC VERIFIED Erythrocytes [#/volume] in Blood by Automated count 3.49 x10*6/UL 4.2 0-6.30 [facility] ([facility]) Hematocrit [Volume Fraction] of Blood by Automated count 30.3 % 3 7.0-51.0 [facility] ([facility]) MCV 86.9 fL 80.0-97.0 [facility] ([place] [facility]) MCH 28.6 pg 26.0-32.0 [facility] [facility]) Erythrocyte distribution width [Ratio] by Automated count 14.8 % 11.6-13.7 [facility] ([facility]) MCHC 32.9 g/dL 31.0-38.0 [facility] ([facility]) Platelets [#/volume] in Blood by Automated count 313 x10*3/UL 140-440 [facility] ([facility]) MPV 8.7 FL 7.8-11.0 [facility] ([place] [facility]) Lymph % 21.0 % 10.0-58.5 [facility] ([place] [facility]) Mid % 6.0 % 1.7-9.3 [facility] ([place] [facility]) Neut % 73.0 % 37.0-92.0 [facility] ([facility]) Lymph # 1.9 x10*3/UL 0.6-4.1 [facility] ([facility]) Mid # 0.6 x10*3/UL 0.1-0.6 [facility] ([facility]) Neut # 6.9 x10*3/UL 2.0-7.8 [facility] ([facility]) ID Date Data Source [id number] 2021 10:14:00 AM EDT [facility] ([facility]) Name Value Range Interpretation Code Description Data Aura rce(s) Supporting Document(s) Hemoglobin [Mass/volume] in Blood 9.6 g/dL 12.0-18.0 [facility] ([facility]) Leukocytes [#/volume] in Blood by Automated count 9.7 x10*3/UL 4.1-10 .9 [facility] ([facility]) NOTE: CBC VERIFIED Erythrocytes [#/volume] in Blood by Automated count 3.27 x10*6/UL 4.2 0-6.30 [facility] ([facility]) MCH 29.3 pg 26.0-32.0 [facility] ([place] [facility]) Hematocrit [Volume Fraction] of Blood by Automated count 28.4 % 3 7.0-51.0 [facility] ([facility]) MCV 86.9 fL 80.0-97.0 [facility] ([place] [facility]) Erythrocyte distribution width [Ratio] by Automated count 14.8 % 11.6-13.7 [facility] ([facility]) MCHC 33.7 g/dL 31.0-38.0 [facility] ([place] [facility]) Platelets [#/volume] in Blood by Automated count 351 x10*3/UL 140-440 [facility] ([facility]) Lymph % 21.2 % 10.0-58.5 [facility] ([place] [facility]) MPV 8.5 FL 7.8-11.0 [facility] ([place] [facility]) Mid % 6.4 % 1.7-9.3 [facility] ([place] [facility]) Lymph # 2.0 x10*3/UL 0.6-4.1 [facility] ([facility]) Mid # 0.7 x10*3/UL 0.1-0.6 [facility] ([facility]) Neut % 72.4 % 37.0-92.0 [facility] ([place] [facility]) Neut # 7.0 x10*3/UL 2.0-7.8 [facility] ([facility]) ID Date Data Source [id number] 2021 10:14:00 AM EDT [facility] ([facility]) Name Value Range Interpretation Code Description Data Aura rce(s) Supporting Document(s) Glucose [Mass/volume] in Serum or Plasma 92 mg/dL 74-99 [facility] ([facility]) 100-125 mg/dL PRE-DIABETES/FASTING >126 mg/dL DIABETES/FASTING Urea nitrogen [Mass/volume] in Serum or Plasma 20 mg/dL 7-18 [facility] ([facility]) Creatinine 1.0 mg/dL 0.6-1.3 [facility] ([facility]) Sodium [Moles/volume] in Serum or Plasma 140 meq/L 136-145 [facility] ([facility]) Potassium [Moles/volume] in Serum or Plasma 4.2 meq/L 3.5-5.1 [facility] ([facility]) Chloride [Moles/volume] in Serum or Plasma 105 meq/L 98-107 [facility] ([facility]) Calcium [Mass/volume] in Serum or Plasma 9.6 mg/dL 8.5-10.1 [facility] ([facility]) Carbon dioxide, total [Moles/volume] in Serum or Plasma 27 meq/L 21 -32 [facility] ([facility]) Alkaline phosphatase isoenzyme [Units/volume] in Serum or Pl asma 132 mg/dL 46-116 [facility] ([facility]) Total Bilirubin 0.4 mg/dL 0.2-1.0 [facility] ([facility]) Aspartate aminotransferase [Enzymatic activity/volume] in Serum or Plasma 17 U/L 15-37 [facility] ([facility] ) Alanine aminotransferase [Enzymatic activity/volume] in Seru m or Plasma 23 U/L 12-78 [facility] ([facility]) Albumin [Mass/volume] in Serum or Plasma 3.5 g/dL 3.4-5.0 [facility] ([facility]) Proteinase 3 Ab [Units/volume] in Serum 7.8 g/dL 6.4-8.2 [facility] ([facility]) A/G Ratio 0.81 CALC 1.00-1.90 [facility] [facility] Glomerular filtration rate/1.73 sq M pre dicted among blacks [Volume Rate/Area] in Serum or Plasma by Creatinine-based formula (MDRD) Laboratory test result [facility] ([place] [facility] <content>CHRONIC KIDNEY DISEASE STAGING PER NKF</content>
<content></content>
<content>STAGE I & II GFR >= 60 NORMAL TO MILDLY DECREASED</content>
<content>STAGE III GFR 30-59 MODERATELY DECREASED</content>
<content>STAGE IV GFR 15-29 SEVERELY DECREASED</content>
<content>STAGE V GFR <15 VERY LITTLE GFR LEFT</content>
<content>ESRD GFR <15 ON FINANCIAL SERVICES SPECIALIST</content>
<content></content> Glomerular filtration rate/1.73 sq M pre dicted among non-blacks [Volume Rate/Area] in Serum or Plasma by Creatinine-based formula (MDRD) 53 mL/min [facility] ([place] [facility] ID Date Data Source [id number] 2021 10:14:00 AM EDT [facility] ([facility]) Name Value Range Interpretation Code Description Data Aura rce(s) Supporting Document(s) Hemoglobin A1c/Hemoglobin.total in Blood 7.9 % [facility] ([facility]) Lab Result Notes: Pre-Diabetes 5.7 - 6.4 % Diabetes = or > 6.5% Glucose mean value [Mass/volume] in Blood Estimated fr om glycated hemoglobin 180 mg/dL 60-110 [facility] ([facility] ) ID Date Data Source [id number] 2021 10:14:00 AM EDT [facility] ([facility]) Name Value Range Interpretation Code Description Data Aura rce(s) Supporting Document(s) Hemoglobin A1c/Hemoglobin.total in Blood Laboratory test result [facility] ([facility]) ID Date Data Source [id number] 03/26/2021 01:32:00 PM EDT [facility] ([facility]) Name Value Range Interpretation Code Description Data Aura rce(s) Supporting Document(s) Laboratory test finding (navigational concept) 31.0 % 38.0-51.0 [facility] ([facility]) Laboratory test finding (navigational concept) 4.4 meq/L 3.5-5.1 [facility] ([facility]) Laboratory test finding (navigational concept) 141 meq/L 136-145 [facility] ([facility]) Laboratory test finding (navigational concept) 244 mg/dL 70-105 [facility] ([facility]) Laboratory test finding (navigational concept) 4.8 mg/dL 4.5-5.3 [facility] ([facility]) Laboratory test finding (navigational concept) 103 meq/L 98-109 [facility] ([facility]) Laboratory test finding (navigational concept) 26.0 MM/L 23.0-27.0 [facility] ([facility]) Laboratory test finding (navigational concept) 0.7 mg/dL 0.6-1.3 [facility] ([facility]) Laboratory test finding (navigational concept) 18 mg/dL 8-26 [facility] ([facility]) ID Date Data Source [id number] 03/05/2021 03:55:00 PM EDT [facility] 1 Medication Reconciliation Report [facility] Emergency Department [address] [place] [address] Phone #: ext- [phone] 03/05/2021 15:55 Patient: JAJA WEBB Sex: F : 1940 Age: 80yWeight: 62.5 kgHeight/Length: 60 in.BMI: 26.9ALLERGIES: Aspirin, Codeine PhosphateThe patient's Home Medications are listed below:CONTINUE TAKING THE FOLLOWING MEDICATIONS: Advair Diskus Inhalation (100-50 mcg/dose), 2x a day Bisoprolol Fumarate Oral (5 mg) 1 tablet, daily Gabapentin Oral (600 mg) 1 tablet, at bedtime metFORMIN HCl Oral (500 mg), 2x a day NovoLOG Subcutaneous (100 unit/mL) 14 units, 3x a day Ramipril Oral (2.5 mg), daily Sertraline HCl Oral (25 mg), daily Tresiba FlexTouch Subcutaneous (100 unit/mL) 86 unitsThe source(s) of the original Home Medication information:Not obtained.The following Medications were given to the patient in the Emergency Department:None.The following Medications were prescribed to the patient:None. Name Value Range Interpretation Code Description Data Aura rce(s) Supporting Document(s) ID Date Data Source [id number] 03/05/2021 03:55:00 PM EDT [facility] 1 Medication Administration Record [facility] Emergency Department [address] [place] [address] Phone #: ext- [phone] 03/05/2021 15:55 Patient: JAJA WEBB Sex: F : 1940 Age: 80yWeight: 62.5 kgHeight/Length: 60 inBMI: 26.9ALLERGIES: Codeine Phosphate, AspirinDate/Time Medication Administered Medication Ordered Name Value Range Interpretation Code Description Data Aura rce(s) Supporting Document(s) ID Date Data Source [id number] 03/05/2021 03:55:00 PM EDT [facility] 1 General Instructions [facility] Emergency Department [address] [place] [address] Phone #: ext- [phone] 03/05/2021 15:55 Patient: JAJA WEBB Sex: F : 1940 Age: 80yAcute weakness.INSTRUCTIONS(return if worse or any new symptoms. It is important to follow up with your primary care physician. pleasealways use your walker. continue with your physical therapy at home. You may take tylenol for pain.).Warnings: GENERAL WARNINGS: Return or contact your physician immediately if your conditionworsens or changes unexpectedly, if not improving as expected, or if other problems arise.Your Current Medications: Your current home medications have been reviewed.CONTINUE TAKING THE FOLLOWING MEDICATIONS:Advair Diskus Inhalation : Aerosol Powder Breath Activated 100-50 mcg/dose, 2x a day.Bisoprolol Fumarate Oral : Tablet 5 mg, 1 tablet daily.Ga bapentin Oral : Tablet 600 mg, 1 tablet, at bedtime.metFORMIN HCl Oral : Tablet 500 mg, 2x a day.NovoLOG Subcutaneous : Solution 100 unit/mL, 14 units 3x a day.Ramipril Oral : Capsule 2.5 mg, daily.Sertraline HCl Oral : Tablet 25 mg, daily.Tresiba FlexTouch Subcutaneous : Solution Pen-injector 100 unit/mL, 86 units.Follow-up:Follow up with your doctor in two days even if well. Call for an appointment. Reason for referral: evaluation.Summary of care provided to patient via paper.Understanding of the discharge instructions verbalized. ADDITIONAL INFORMATIONWeakness with Uncertain CauseBased on your exam today, the exact cause of your weakness is not certain. But your weakness doesnot seem to be a sign of a serious illness at this time. Keep an eye on your symptoms and getmedical advice as instructed below.Home care 2 General Instructions [facility] Emergency Department [address] [place] [address] Phone #: ext- [phone] 03/05 15:55 Patient: JAJA WEBB Sex: F : 1940 Age: 80y Rest at home today. Don't over-exert yourself. Take any medicine as prescribed. For the next few days, drink extra fluids (unless your healthcare provider wants you to restrict fluids for other reasons). Don't skip meals. Unless otherwise directed, continue to take any prescription medicines. Contact your healthcare provider if you have any questions or concerns.Follow-up careFollow up with your healthcare provider, or as advised.When to seek medical adviceCall your healthcare provider right away for any of the following: Symptoms get worse Symptoms don't start getting better within 2 days Fever of 100.4 F (38 C) or higher, or as directed by your healthcare providerCall 911C 911 for any of these: Chest, arm, neck, jaw, or upper back pain Trouble breathing Numbness or weakness of the face, one arm, or one leg Slurred speech, confusion, or trouble speaking, walking, or seeing Blood in vomit or stool (black or red color) Loss of consciousness Severe headache 0410-2042 [employer]. [address] [place] [address] 98237. All rights reserved. This information is not intended as asubstitute for professional medical care. Always follow your healthcare professional's instructions. You have been given the following additional information: Weakness (Uncertain Cause) 3 General Instructions [facility] Emergency Department [address] [place] [address] Phone #: ext [phone] 03/05/2021 15:55 Patient: JAJA WEBB Sex: F : 1940 Age: 80y(Electronically signed by Jackie Telles MD 03/11/2021 19:38) Name Value Range Interpretation Code Description Data Aura rce(s) Supporting Document(s) ID Date Data Source [id number] 03/05/2021 03:55:00 PM EDT [facility] 1 Clinical Report - Nurses [facility] Emergency Department [address] [place] [address] Phone #: ext [phone] 03/05/2021 15:55 Patient: JAJA WEBB Sex: F : 1940 Age: 80yTRIAGE Arrived by EMS. Historian: patient. Triage time: 15:56 03/05/2021. Acuity: LEVEL 3. Chief Complaint: FALL: while standing 16:02 03/05/21. Alert. No acute distress. This occurred (about 30 minutes ago). ( Pt states she was standing in kitchen cooking dinner, felt legs give out and she lowered herself to the floor. Pt c/o bilateral groin pain but denies additional injury. Denies hitting head, denies LOC. Pt able to move self from EMS cot to ED cot. Alert and oriented x 4.). No loss of consciousness. No alteration in mental status, dizziness or neck pain. Pre-hospital notification of patient arrival was received. 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 SEPSIS SCREEN: SIRS SCREEN NEGATIVE. SEPSIS SCREEN NEGATIVE. No suspected or confirmed signs of infection present. BHARATHI COMA SCORE: 15- eyes open- spontaneous (4); best verbal response- oriented (5); best motor response- obeys commands (6). --16:07 03/05/21 Radha Andre R.N. 16:02 03/05/2021 BP: 119/68. HR: 75. RR: 16. O2 saturation: 98%. Temp: 97.1 F. Pain level now 6/10. --16:07 03/05/21 Radha Andre R.N. Acuity: LEVEL 3. --16:17 03/05/21 Radha Andre R.N. Weight: 62.5 kg. Height/Length: 60 inches. BMI: 26.9. --16:12 03/05/21 Radha Andre R.N. Medications metFORMIN HCl Oral (Tablet 500 mg), 2x a day. --16:14 03/05/21 Josefina Arevalo R.N. NovoLOG Subcutaneous (Solution 100 unit/mL) 14 units, 3x a day. --16:14 03/05/21 Radha Andre R.N. Bisoprolol Fumarate Oral (Tablet 5 mg) 1 tablet, daily. --16:14 03/05/21 Radha Andre R.N. Sertraline HCl Oral (Tablet 25 mg), daily. --16:14 03/05/21 Radha Andre R.N. Tresiba FlexTouch Subcutaneous (Solution Pen-injector 100 unit/mL) 86 units. --16:15 03/05/21 Josefina Arevalo R.N. Advair Diskus Inhalation (Aerosol Powder Breath Activated 100-50 mcg/dose), 2x a day. --17:03 03/05/21 Josefina Arevalo R.N. Ramipril Oral (Capsule 2.5 mg), daily. --17:04 03/05/21 Josefina Arevalo R.N. 2 Clinical Report - Nurses [facility] Emergency Department [address] [place] [address] Phone #: ext- [phone] 03/05/2021 15:55 Patient: JAJA WEBB [facility]#: [id number] Sex: F : 1940 Age: 80yGabapentin Oral (Tablet 600 mg) 1 tablet, at bedtime. --17:04 03/05/21 Josefina Arevalo R.N.The following entry was struck and corrected by Josefina Arevalo R.N., 17:05 (03/05/21) Reason forcorrection - other(correction). Tresiba FlexTouch Subcutaneous (Solution Pen-injector 100 unit/mL). --16:15 03/05/21 Radha Andre R.N.The following entry was struck and corrected by Josefina Arevalo R.N., 17:03 (03/05/21) Reason forcorrection - other(correction). metFORMIN HCl Oral (Tablet 500 mg), daily. --16:14 03/05/21 Radha Andre R.N. .AllergiesAspirin. --16:00 03/05/21 Radha Andre R.N.Codeine Phosphate. --16:01 03/05/21 Radha Andre R.N.PROBLEMS:Hypertension.Diabetes Mellitus. --16:02 03/05/21 Radha Andre R.N.ADDITIONAL SURGERIES:no known surgeries.Boaosmd15:02 03/05/21.SOCIAL HX: No alcohol use or drug use. She was offered HIV testing but declined and hepatitis C testingbut declined. She has not traveled outside the [place]Infectious disease exposure: The patient was not exposed to C-diff, MRSA, VRE, CRE or Coronavirus.SELF HARM ASSESSMENT: Self harm assessment was pe rformed. The patient answered "no" to thequestion(s) "Have you recently felt down, depressed, or hopeless?", "Do you have thoughts of harming orkilling yourself?", "Do you have a plan for harming or killing yourself?", "Have you recently had thoughtsabout harming or killing others?", "Do you have any dangerous items in your possession?", "Have younoticed less interest or pleasure in doing things?", "Are you here because you tried to hurt yourself?" and"Have you ever tried to hurt yourself before today?".ABUSE ASSESSMENT: No report of abuse.LEARNING NEEDS ASSESSMENT: The learning needs assessment revealed no barriers.FALL RISK ASSESSMENT: Fall risk assessment completed. Risk factors identified include patient agegreater than 65 years, history of fall and impairment of mobility. Fall interventions initiated. Side rails up x2.Bed in low position. Brakes on. Patient identified as a fall risk by ID band. Patient in yellow slippers. Calllight in reach of patient. Instructed not to get up without assistance. Instructions given to patient includingfall prevention information. Verbalizes understanding. 3 Clinical Report - Nurses [facility] Emergency Department [address] [place] [address] Phone #: ext- [phone] 03/05/2021 15:55 [id number] 1940 Age: 80y FUNCTIONAL ASSESSMENT: Functional assessment performed: uses walker. SKIN INTEGRITY ASSESSMENT: Skin integrity risk assessment completed. No skin integrity risk identified. --16:07 03/05/21 Radha Andre R.N. SOCIAL HX: Former smoker, end date 2010. --16:17 03/05/21 Radha Andre R.N. Interventions 16:02 03/05/21. Identification and allergy band on patient. To treatment room. --16:07 03/05/21 Radha Andre R.N.PHYSICAL ASSESSMENT 16:18 03/05/21. GENERAL / NEURO / PSYCH: Alert. Oriented X 4. Appears in no acute distress. HEENT: Pupils equal, round and reactive to light. Head non-tender. RESPIRATORY: Respirations not labored. Chest nontender. Breath sounds within normal limits. CVS: Normal heart rate and rhythm. Pulses within normal limits. Pulses: right dorsalis pedis 2+; left dorsalis pedis 2+. Capillary refill less than 2 seconds and is greater than 2 seconds. GI / : Abdomen soft and nontender. EXTREMITIES: Extremities exhibit normal ROM. ( Pt ambulates at home with use of walker. Equal strength of bilateral lower extremities.). SKIN: Skin intact. Skin is warm and dry. ( Redness to bilateral groin beneath skin fold of abdomen). --16:28 03/05/21 Radha Andre R.N.NURSING PROGRESS NOTES 16:08 03/05/21. Two patient identifiers checked. Call light placed in reach. Side rails up x 2. Bed placed in lowest position. Brakes of bed on. Patient placed in chair. Patient ready for evaluation- ED physician and PA notified. --16:08 03/05/21 Radha Andre R.N. 16:15 03/05/21. ( Pt stood with assist x 1 to bedside commode. Pt was steady on feet.). --16:26 03/05/21 Radha Andre R.N. 16:43 03/05/21. ( Pt ambulated around department with use of walker with standby assist per Dr Telles. Pt tolerates well, no difficulty noted. Pt denies dizziness.). --16:43 03/05/21 Radha Andre R.N.DISPOSITION / DISCHARGE 17:21 03/05/21. BP: 114/65. HR: 68. RR: 18. O2 saturation: 99%. Temp: 98.0 F. Pain level now 0/10. --17:21 03/05/21 Robert Lee registered medical assistant, Sebastián, ER Tech1 17:21 03/05/21. Condition at departure: improved and stable. No learning barriers present. Discharge instructions provided and reviewed with the patient. Patient verbalized understanding. Written instructions provided in Haitian. The patient was discharged by the physician. She was discharged home. She left ambulatory and via ambulance. ( Pt waiting on ambulance for ride home.). --17:40 03/05/21 Josefina Arevalo R.N. 4 Clinical Report - Nurses [facility] Emergency Department [address] [place] [address] Phone #: ext- [phone] 03/05/2021 15:55 Patient: JAJA WEBB Sex: F : 1940 Age: 80y ( [facility] arrives to give patient ride home. Belongings taken with patient, patient alert, stable and smiling at time of leaving dept.). --18:10 03/05/21 Radha Andre R.N.Locked/Released at 03/05/2021 18:11 by Radha Andre R.N. Name Value Range Interpretation Code Description Data Aura rce(s) Supporting Document(s) ID Date Data Source [id number] 03/05/2021 03:55:00 PM EDT [facility] 1 Clinical Report - Physicians/Mid Levels [facility] Emergency Department [address] [place] [address] Phone #: ext [phone] 03/05/2021 15:55 Patient: JAJA WEBB Sex: F : 1940 Age: 80y Arrived- By ambulance. Historian- patient and EMS personnel. Disposition decision: 17:17 03/05/2021.HISTORY OF PRESENT ILLNESS Chief Complaint: FALL:. (lowered herself to floor). The injury occurred just prior to arrival. Patient did not fall. No fainting episodes. Occurred at home. The patient denies pain. No blow to the head, neck pain, loss of consciousness or seizure. Not dazed. (This occurred (about 30 minutes ago). ( Pt states she was standing in kitchen cooking dinner, felt legs give out and she lowered herself to the floor. Pt c/o bilateral groin pain but denies additional injury. Denies hitting head, denies LOC. Pt able to move self from EMS cot to ED cot. Alert and oriented x 4.). No loss of consciousness. No alteration in mental status, dizziness or neck pain.).REVIEW OF SYSTEMSNo numbness, dizziness, loss of vision or hearing loss. No chest pain or pain, difficulty breathing,weakness or headache. No nausea, abdominal pain or pain, laceration or fever. No vomiting, urinaryproblems or urinary frequency, depression or fever. No double vision, ear pain, runny nose, sore throat orcough. No difficulty breathing, diarrhea, nausea, vomiting or hematuria. No back pain, joint pain, neckpain, skin rash or headache. No seizure, easy bruising or difficulty with urination. The patient has nopain on weight bearing.PAST HISTORYSee nurses notes. Problems: Hypertension. Diabetes Mellitus. Additional Surgeries: no known surgeries. Medic ations: Gabapentin Oral (Tablet 600 mg) 1 tablet, at bedtime. Ramipril Oral (Capsule 2.5 mg), daily. Advair Diskus Inhalation (Aerosol Powder Breath Activated 100-50 mcg/dose), 2x a day. Tresiba FlexTouch Subcutaneous (Solution Pen-injector 100 unit/mL) 86 units. Sertraline HCl Oral (Tablet 25 mg), daily. Bisoprolol Fumarate Oral (Tablet 5 mg) 1 tablet, daily. 2 Clinical Report - Physicians/Mid Levels [facility] Emergency Department [address] [place] [address] Phone #: ext- [phone] 03/05/2021 15:55 Patient: JAJA WEBB Sex: F : 1940 Age: 80y NovoLOG Subcutaneous (Solution 100 unit/mL) 14 units, 3x a day. metFORMIN HCl Oral (Tablet 500 mg), 2x a day. Allergies: Aspirin. Codeine Phosphate.SOCIAL HISTORYNo drug use.ADDITIONAL NOTESThe nursing notes have been reviewed.PHYSICAL EXAMVital Signs: 03/05/2021 17:21 BP: 114/65. MAP: 81. HR: 68. RR: 18. O2 saturation: 99%. Temp: 98.0 F.03/05/2021 16:02 BP: 119/68. MAP: 85. HR: 75. RR: 16. O2 saturation: 98%. Temp: 97.1 F. Have beenreviewed and appear to be correct. Blood pressure normal. Mean arterial pressure- normal. Heart ratenormal. Respiratory rate normal. Temperature normal. Oxygen saturation normal.Appearance: Alert. Oriented X3. No acute distress.Head: Head non-tender. No swelling of head.Eyes: Pupils equal, round and reactive to light. EOM intact.ENT: Pharynx normal.Neck: Painless ROM. Non-tender.CVS: Heart sounds normal. Pulses normal.Respiratory: Painless inspiration. Breath sounds normal. Chest nontender.Abdomen: No visible injury. Soft and nontender. Bowel sounds normal.Back: No tenderness. ROM normal.Skin: Skin intact. Skin warm and dry. Normal skin color. Normal skin turgor.Extremities: Normal inspection. Pelvis stable. Extremities atraumatic.Neuro: Oriented X 3. No motor deficit. No sensory deficit.PROGRESS AND PROCEDURESCourse of Care: pt is a 80 year old female who lowered herself to the ground after she had a pain to hergroin areas bilaterally. she sustained no injuries. pt instructed to use her walker and to return if worse orany new symptoms. she was further instructed to f/u with pcp. Patient/family counseled. Disposition: Discharged. Condition: good and stable.CLINICAL IMPRESSION Acute weakness. 3 Clinical Report - Physicians/Mid Levels [facility] Emergency Department [address] [place] [address] Phone #: ext- [phone] 03/05/2021 15:55 Patient: JAJA WEBB Sex: F : 1940 Age: 80yINSTRUCTIONS (return if worse or any new symptoms. It is important to follow up with your primary care physician. please always use your walker. continue with your physical therapy at home. You may take tylenol for pain.). Warnings: GENERAL WARNINGS: Return or contact your physician immediately if your condition worsens or changes unexpectedly, if not improving as expected, or if other problems arise. Your Current Medications: Your current home medications have been reviewed. CONTINUE TAKING THE FOLLOWING MEDICATIONS: Advair Diskus Inhalation : Aerosol Powder Breath Activated 100-50 mcg/dose, 2x a day. Bisoprolol Fumarate Oral : Tablet 5 mg, 1 tablet daily. Gabapentin Oral : Tablet 600 mg, 1 tablet, at bedtime. metFORMIN HCl Oral : Tablet 500 mg, 2x a day. NovoLOG Subcutaneous : Solution 100 unit/mL, 14 units 3x a day. Ramipril Oral : Capsule 2.5 mg, daily. Sertraline HCl Oral : Tablet 25 mg, daily. Tresiba FlexTouch Subcutaneous : Solution Pen-injector 100 unit/mL, 86 units. Follow-up: Follow up with your doctor in two days even if well. Call for an appointment. Reason for referral: evaluation. Summary of care provided to patient via paper. Understanding of the discharge instructions verbalized.(Electronically signed by Jackie Telles MD 03/11/2021 19:38) Name Value Range Interpretation Code Description Data [facility] Supporting Document(s) ID Date Data Source [id number] 02/05/2021 03:08:00 PM EDT [facility]) Name Value Range Interpretation Code Description Data [facility] Supporting Document(s) Venous PH 7.324 units 7.330-7.430 [facility] ([facility]) Venous Partial Pressure Co2 47.1 mmHg 38.0-50.0 [facility] ([facility]) Venous Partial Pressure O2 40.3 mmHg 30.0-50.0 [facility] ([facility]) Venous Total Co2 25.4 meq/L 24.0-28.0 [facility] ([facility]) Venous Hco3 23.9 meq/L 23.0-27.0 [facility] ([facility]) Venous Base Excess -2.3 [facility] ([facility]) Venous Standard Hco3 22.0 meq/L [facility] Venous O2 Saturation 71.9 % 60.0-80.0 [facility] ID Date Data Source [id number] 02/05/2021 03:08:00 PM EDT [facility] ([facility]) Name Value Range Interpretation Code Description Data Aura rce(s) Supporting Document(s) Ammonia [Mass/volume] in Blood 13 uMOL/L [facility] ID Date Data Source [id number] 02/05/2021 02:43:00 PM EDT [facility] ([facility]) Name Value Range Interpretation Code Description Data Aura rce(s) Supporting Document(s) Influenza A Amplification Laboratory test result [facility] ([facility]) Negative results do not preclude influen za or RSV virus infection and should not be used as the sole basis for treatment or other patient management decisions. Influenza B Amplification Laboratory test result [facility] Negative results do not preclude influen za or RSV virus infection and should not be used as the sole basis for treatment or other patient management decisions. RSV Amplification Laboratory test result [facility] ([facility]) Negative results do not preclude influen za or RSV virus infection and should not be used as the sole basis for treatment or other patient management decisions. Laboratory test finding (navigational concept) Laboratory test result [facility] A false negative result may occur if a s pecimen is improperly collected, transported or handled. False [...] pathogens. DISCLAIMER: Testing was performed using the [employer] SARS-CoV-2 test. This test was developed and its performance characteristics determined by [employer]. This test has not been FDA cleared [...] the authorization is terminated or revoked sooner. ID Date Data Source [id number] 02/05/2021 02:43:00 PM EDT [facility] Name Value Range Interpretation Code Description Data Aura rce(s) Supporting Document(s) SARS coronavirus 2 RNA [Presence] in Res piratory specimen by ARLETTE with probe detection NEGATIVE [facility] This lab was ordered by [facility] a nd reported by [facility]. ID Date Data Source [id number] 02/05/2021 11:13:00 AM EDT [facility] ([facility]) Name Value Range Interpretation Code Description Data Aura rce(s) Supporting Document(s) Bedside Glucose 274 mg/dL 83-110 [facility] ([facility]) ID Date Data Source [id number] 02/05/2021 10:59:00 AM EDT [facility] ([facility]) Name Value Range Interpretation Code Description Data Aura rce(s) Supporting Document(s) Lactate [Mass/volume] in Serum or Plasma 1.5 mmol/L 0.4-2.0 [facility] ([facility]) Y/N query for Sepsis Lactate Rule: Y ID Date Data Source [id number] 02/05/2021 10:33:00 AM EDT [facility] ([facility]) Name Value Range Interpretation Code Description Data Aura rce(s) Supporting Document(s) White Blood Count 11.5 10 4.0-10.0 [facility] ([facility]) Red Blood Count 4.05 10 4.00-5.40 [facility] ([facility]) Hemoglobin 11.5 g/dL 12.0-15.5 [facility]) Hematocrit 37.4 % 36.0-47.0 [facility]) Mean Corpuscular Hemoglobin 28.4 pg 27.0-33.0 [facility] ([facility]) Mean Corpuscular Volume 92.3 fl 80.0-96.0 [facility] ([facility]) Mean Corpuscular HGB Conc 30.7 g/dL 32.0-36.5 [facility] ([facility]) Red Cell Distribution Width 16.5 % 11.5-14.5 [facility] ([facility]) Platelet Count, Automated 298 10 150-450 [facility] ([facility]) Neutrophils % 66.2 % 36.0-66.0 [facility] ([facility]) [place] % 11.8 % 2.0-8.0 [facility]) Lymph % 20.2 % 24.0-44.0 [facility] Baso % 0.8 % 0.0-1.0 [facility]) Eos % 0.6 % 0.0-3.0 [facility] [facility]) Neutrophils # 7.6 10 1.5-8.5 [facility] ([facility]) Immature Granulocyte % 0.4 % 0-3.0 [facility] ([facility]) Nucleated Red Blood Cell % 0.0 % 0-0 [facility] ([facility]) [place] # 1.4 10 0.0-0.8 [facility] [facility]) Eos # 0.1 10 0.0-0.5 [facility] [facility] Lymph # 2.3 10 1.5-5.0 [facility] ([place] [facility] Baso # 0.1 10 0.0-0.2 [facility] ([place] [facility] ID Date Data Source [id number] 02/05/2021 10:33:00 AM EDT [facility] ([facility]) Name Value Range Interpretation Code Description Data Aura rce(s) Supporting Document(s) CK-MB Value Mass 1.9 ng/mL [facility] ([facility]) MB/CK Relative Index 1.31 [facility] ([facility]) <content>DIAGNOSIS CRITERIA</content>
<content>MMB ng/ml Relative Index (RI)</content>
<content>NON-AMI < or = 5 N/A</content>
<content>OSULLIVAN ZONE > 5 < or = 4</content>
<content>AMI > 5 > 4</content>
<content></content> CPK Creatine Phosphokinase 145 U/L 26-192 [facility] ([facility]) Troponin I Laboratory test result [facility] [facility] <content>Troponin I Reference Interval f or Siemens Emmett LOCI:</content>
<content></content>
<content>99th Percentile= 0.00-0.045 ng/ml</content>
<content></content>
<content>Risk Stratification:</content>
<content><= 0.10 ng/ml Decreased Risk for Adverse Clinical</content>
<content>Events.</content>
<content>0.10-1.50 ng/ml Increased Risk for Adverse Clinical</content>
<content>Events. Evaluation of additional</content>
<content>criterion and/or repeat testing in 2-6</content>
<content>hours is suggested to rule out myocardial</content>
<content>damage.</content>
<content>>= 1.50 ng/ml Indicative of Myocardial Injury.</content>
<content></content> ID Date Data Source [id number] 02/05/2021 10:33:00 AM EDT [facility]) Name Value Range Interpretation Code Description Data Aura rce(s) Supporting Document(s) Alt/SGPT 24 U/L 12-78 [facility] [facility] Alkaline Phosphatase 148 U/L 45-117 [facility] ([facility]) Ast/Sgot 21 U/L 7-37 [facility] ([facility]) Bilirubin,Direct 0.2 mg/dL 0.0-0.2 [facility] ([facility]) Bilirubin,Total 0.8 mg/dL 0.2-1.0 [facility] ([facility]) Total Protein 8.9 GM/DL 6.4-8.2 [facility] ([facility]) Albumin/Globulin Ratio 0.8 1.2-2.2 [facility] ([facility]) Albumin 3.9 GM/DL 3.2-5.2 [facility] [facility]) ID Date Data Source [id number] 02/05/2021 10:33:00 AM EDT [facility] ([facility]) Name Value Range Interpretation Code Description Data Aura rce(s) Supporting Document(s) Blood Urea Nitrogen 22 mg/dL 7-18 [facility] ([facility]) Creatinine For GFR 0.90 mg/dL 0.55-1.30 [facility] ([facility]) Glucose, Fasting 269 mg/dL 70-100 [facility] ([facility]) Potassium Serum 4.6 meq/L 3.5-5.1 [facility] ([facility]) Sodium Level 134 meq/L 136-145 [facility] ([facility]) Glomerular Filtration Rate Laboratory test result [facility] ([facility]) <content>Units are mL/min/1.73 m2</content>
<content></content>
<content>Chronic Kidney Disease Staging per NKF:</content>
<content></content>
<content>Stage I & II GFR >=60 Normal to Mildly Decreased</content>
<content>Stage III GFR 30- 59 Moderately Decreased</content>
<content>Stage IV GFR 15-29 Severely Decreased</content>
<content>Stage V GFR <15 Very Little GFR Left</content>
<content>ESRD GFR <15 on FINANCIAL SERVICES SPECIALIST</content>
<content></content> Carbon Dioxide Level 23 meq/L 21-32 [facility] Anion Gap 8 meq/L 8-16 [facility] [facility]) Chloride Level 103 meq/L 98-107 [facility] ([facility]) Calcium Level 9.8 mg/dL 8.8-10.2 [facility] ID Date Data Source [id number] 02/05/2021 10:33:00 AM EDT [facility] Name Value Range Interpretation Code Description Data Aura rce(s) Supporting Document(s) Thyrotropin [Units/volume] in Serum or Plasma by Detec tion limit <= 0.05 mIU/L 2.130 uIU/ML 0.358-3.740 [facility] ([facility] ) ID Date Data Source [id number] 02/05/2021 10:33:00 AM EDT [facility] Name Value Range Interpretation Code Description Data Aura rce(s) Supporting Document(s) Appearance, Urine RFX Laboratory test result [facility] ([facility]) Color, Urine RFX Laboratory test result [facility] ([facility]) Specific [place] Ur Auto RFX 1.014 1.002-1.035 [facility] ([place] [facility] PH,Urine RFX 5.0 units 5.0-9.0 [facility] ([facility]) Protein, Urine Auto RFX Laboratory test result [facility] ([facility]) Glucose, Urine (Ua) Auto RFX Laboratory test result [facility] ([facility]) Urobilinogen, Urine Auto RFX 0.2 mg/dL 0.0-2.0 [facility] ([place] [facility] Bilirubin, Urine Auto RFX Laboratory test result [facility] ([place] [facility] Ketone, Urine Auto RFX Laboratory test result [facility] ([place] [facility] Leukocyte Esterase Ur Auto RFX Laboratory test result [facility] ([place] [facility] Nitrite, Urine Auto RFX Laboratory test result [facility] ([place] [facility] Blood, Urine Blood RFX Laboratory test result [facility] ([place] [facility] WBC, Urine Auto RFX Laboratory test result 0-3 [facility] ([place] [facility] Bacteria, Urine Auto RFX Laboratory test result [facility] ([place] [facility] RBC, Urine Auto RFX 71 /HPF 0-3 [facility] ([facility] Yeast Like Cell Urine Auto RFX Laboratory test result [facility] ([facility]) Squam Epithelial Cell Ur Aurfx 3 /HPF 0-6 [facility] ([facility]) Hyaline Cast, Urine Auto RFX 0 /LPF 0-1 [facility] ([facility]) ID Date Data Source [id number] 01/02/2021 01:52:00 PM EDT [facility] ([facility]) Name Value Range Interpretation Code Description Data Aura rce(s) Supporting Document(s) Microalbumin Urine 281.2 mg/L 1.3-20.0 [facility] ([facility]) NOTE: diluted and verified Urine Creatinine 265.8 mg/dL 30.0-125.0 [facility] ([facility]) Microalb/Creat Ratio 105.8 ug/mg 0.0-30.0 [facility] ([facility]) ID Date Data Source [id number] 12/31/2020 12:09:00 PM EDT [facility] Name Value Range Interpretation Code Description Data Aura rce(s) Supporting Document(s) Total Iron Binding Capacity 392 ug/dL 250-450 [facility] ([facility]) Iron (Fe) 40 ug/dL 50-170 [facility] [facility]) Percent Saturation 10.2 % 13.2-45.0 [facility] ([facility]) ID Date Data Source [id number] 12/31/2020 12:08:00 PM EDT [facility] Name Value Range Interpretation Code Description Data Aura rce(s) Supporting Document(s) Urea nitrogen [Mass/volume] in Serum or Plasma 30 mg/dL 7-18 [facility] ([facility]) Glucose [Mass/volume] in Serum or Plasma 119 mg/dL 74-99 [facility] ([facility]) 100-125 mg/dL PRE-DIABETES/FASTING >126 mg/dL DIABETES/FASTING Sodium [Moles/volume] in Serum or Plasma 143 meq/L 136-145 [facility] ([facility]) Potassium [Moles/volume] in Serum or Plasma 4.6 meq/L 3.5-5.1 [facility] ([facility]) Creatinine 1.1 mg/dL 0.6-1.3 [facility] ([place] [facility]) Chloride [Moles/volume] in Serum or Plasma 108 meq/L 98-107 [facility] ([facility]) Carbon dioxide, total [Moles/volume] in Serum or Plasma 23 meq/L 21 -32 [facility] ([place] [facility] Glomerular filtration rate/1.73 sq M pre dicted among blacks [Volume Rate/Area] in Serum or Plasma by Creatinine-based formula (MDRD) 58 mL/min [facility] ([place] [facility] <content>CHRONIC KIDNEY DISEASE STAGING PER NKF</content>
<content></content>
<content>STAGE I & II GFR >= 60 NORMAL TO MILDLY DECREASED</content>
<content>STAGE III GFR 30-59 MODERATELY DECREASED</content>
<content>STAGE IV GFR 15-29 SEVERELY DECREASED</content>
<content>STAGE V GFR <15 VERY LITTLE GFR LEFT</content>
<content>ESRD GFR <15 ON FINANCIAL SERVICES SPECIALIST</content>
<content></content> Glomerular filtration rate/1.73 sq M pre dicted among non-blacks [Volume Rate/Area] in Serum or Plasma by Creatinine-based formula (MDRD) 48 mL/min [facility] ([place] [facility] Calcium [Mass/volume] in Serum or Plasma 8.9 mg/dL 8.5-10.1 [facility] ([facility]) ID Date Data Source [id number] 12/31/2020 12:08:00 PM EDT [facility]) Name Value Range Interpretation Code Description Data Aura rce(s) Supporting Document(s) Hemoglobin A1c/Hemoglobin.total in Blood 7.5 % [facility] ([facility]) Lab Result Notes: Pre-Diabetes 5.7 - 6.4 % Diabetes = or > 6.5% Glucose mean value [Mass/volume] in Blood Estimated fr om glycated hemoglobin 169 mg/dL 60-110 [facility] ([facility] ) ID Date Data Source [id number] 12/31/2020 12:08:00 PM EDT [facility]) Name Value Range Interpretation Code Description Data Aura rce(s) Supporting Document(s) Erythrocytes [#/volume] in Blood by Automated count 3.63 x10*6/UL 4.2 0-6.30 [facility] ([facility]) Leukocytes [#/volume] in Blood by Automated count 11.7 x10*3/UL 4.1-1 0.9 [facility] ([facility]) Hemoglobin [Mass/volume] in Blood 10.1 g/dL 12.0-18.0 [facility] ([facility]) Hematocrit [Volume Fraction] of Blood by Automated count 31.1 % 3 7.0-51.0 [facility] ([facility]) MCH 27.7 pg 26.0-32.0 [facility] [facility] MCV 85.7 fL 80.0-97.0 [facility] [facility]) Erythrocyte distribution width [Ratio] by Automated count 14.2 % 11.6-13.7 [facility] ([facility]) MCHC 32.3 g/dL 31.0-38.0 [facility] [facility]) MPV 9.1 FL 7.8-11.0 [facility] [facility]) Platelets [#/volume] in Blood by Automated count 300 x10*3/UL 140-440 [facility] ([facility]) Lymph % 25.9 % 10.0-58.5 [facility] [facility]) Neut % 68.3 % 37.0-92.0 [facility] [facility]) Mid % 5.8 % 1.7-9.3 [facility] [facility]) Lymph # 3.0 x10*3/UL 0.6-4.1 [facility] ([facility]) Mid # 0.7 x10*3/UL 0.1-0.6 [facility] ([facility]) Neut # 8.0 x10*3/UL 2.0-7.8 [facility] ([facility]) ID Date Data Source [id number] 09/24/2020 11:22:00 AM EST [facility] ([facility]) Name Value Range Interpretation Code Description Data Aura rce(s) Supporting Document(s) Triglyceride [Mass/volume] in Serum or Plasma 78 mg/dL 30-150 [facility] ([facility]) Cholesterol [Mass/volume] in Serum or Plasma 120 mg/dL 131-200 [facility] ([facility]) Cholesterol in HDL [Mass/volume] in Serum or Plasma 54 mg/dL 35-60 [facility] ([facility]) Cholesterol in LDL [Mass/volume] in Serum or Plasma by calcu lation 50 CALC 50-159 [facility] ([facility]) ID Date Data Source [id number] 09/24/2020 11:22:00 AM EST [facility] ([facility]) Name Value Range Interpretation Code Description Data Aura rce(s) Supporting Document(s) Glucose [Mass/volume] in Serum or Plasma 140 mg/dL 74-99 [facility] ([facility]) 100-125 mg/dL PRE-DIABETES/FASTING >126 mg/dL DIABETES/FASTING Urea nitrogen [Mass/volume] in Serum or Plasma 33 mg/dL 7-18 [facility] ([facility]) NOTE: RESULT VERIFIED. Sodium [Moles/volume] in Serum or Plasma 146 meq/L 136-145 [facility] ([facility]) Potassium [Moles/volume] in Serum or Plasma 4.9 meq/L 3.5-5.1 [facility] ([facility]) Creatinine 1.1 mg/dL 0.6-1.3 [facility] ([facility]) Carbon dioxide, total [Moles/volume] in Serum or Plasma 24 meq/L 21 -32 [facility] ([facility]) Chloride [Moles/volume] in Serum or Plasma 111 meq/L 98-107 [facility] ([facility]) Alkaline phosphatase isoenzyme [Units/volume] in Serum or Pl asma 113 mg/dL 46-116 [facility] ([facility]) Calcium [Mass/volume] in Serum or Plasma 8.6 mg/dL 8.5-10.1 [facility] ([facility]) Total Bilirubin 0.2 mg/dL 0.2-1.0 [facility] ([facility]) Alanine aminotransferase [Enzymatic activity/volume] in Seru m or Plasma 22 U/L 12-78 [facility] ([facility]) Aspartate aminotransferase [Enzymatic activity/volume] in Serum or Plasma 21 U/L 15-37 [facility] ([place] [facility] Albumin [Mass/volume] in Serum or Plasma 3.3 g/dL 3.4-5.0 [facility] ([place] [facility] Proteinase 3 Ab [Units/volume] in Serum 7.8 g/dL 6.4-8.2 [facility] ([place] [facility] A/G Ratio 0.73 CALC 1.00-1.90 [facility] ([facility]) Glomerular filtration rate/1.73 sq M pre dicted among blacks [Volume Rate/Area] in Serum or Plasma by Creatinine-based formula (MDRD) 58 mL/min [facility] ([place] [facility]) <content>CHRONIC KIDNEY DISEASE STAGING PER NKF</content>
<content></content>
<content>STAGE I & II GFR >= 60 NORMAL TO MILDLY DECREASED</content>
<content>STAGE III GFR 30-59 MODERATELY DECREASED</content>
<content>STAGE IV GFR 15-29 SEVERELY DECREASED</content>
<content>STAGE V GFR <15 VERY LITTLE GFR LEFT</content>
<content>ESRD GFR <15 ON FINANCIAL SERVICES SPECIALIST</content>
<content></content> Glomerular filtration rate/1.73 sq M pre dicted among non-blacks [Volume Rate/Area] in Serum or Plasma by Creatinine-based formula (MDRD) 48 mL/min [facility] ([place] [facility] ID Date Data Source [id number] 09/24/2020 11:22:00 AM EST [facility] Name Value Range Interpretation Code Description Data Aura rce(s) Supporting Document(s) Hemoglobin A1c/Hemoglobin.total in Blood 9.2 % [facility] ([place] [facility] Lab Result Notes: Pre-Diabetes 5.7 - 6.4 % Diabetes = or > 6.5% Glucose mean value [Mass/volume] in Blood Estimated fr om glycated hemoglobin 217 mg/dL 60-110 [facility] ([facility] ) ID Date Data Source [id number] 09/24/2020 11:22:00 AM EST [facility] ([facility]) Name Value Range Interpretation Code Description Data Aura rce(s) Supporting Document(s) Leukocytes [#/volume] in Blood by Automated count 10.1 x10*3/UL 4.1-1 0.9 [facility] ([facility]) NOTE: CBC VERIFIED Hemoglobin [Mass/volume] in Blood 9.6 g/dL 12.0-18.0 [facility] ([facility]) Erythrocytes [#/volume] in Blood by Automated count 3.22 x10*6/UL 4.2 0-6.30 [facility] ([facility]) MCV 89.1 fL 80.0-97.0 [facility] [facility]) MCH 29.8 pg 26.0-32.0 [facility] [facility]) Hematocrit [Volume Fraction] of Blood by Automated count 28.7 % 3 7.0-51.0 [facility] ([facility]) Platelets [#/volume] in Blood by Automated count 261 x10*3/UL 140-440 [facility] ([facility]) Erythrocyte distribution width [Ratio] by Automated count 14.4 % 11.6-13.7 [facility] ([facility]) MCHC 33.4 g/dL 31.0-38.0 [facility] [facility]) Lymph % 24.3 % 10.0-58.5 [facility] ([place] [facility]) MPV 8.4 FL 7.8-11.0 [facility] [facility]) Neut % 70.1 % 37.0-92.0 [facility] [facility]) Mid % 5.6 % 1.7-9.3 [facility] [facility]) Lymph # 2.4 x10*3/UL 0.6-4.1 [facility] ([facility]) Mid # 0.6 x10*3/UL 0.1-0.6 [facility] ([facility]) Neut # 7.1 x10*3/UL 2.0-7.8 [facility] ([place] [facility] ID Date Data Source [id number] 08/23/2020 05:48:00 PM EST [facility] Name Value Range Interpretation Code Description Data Aura rce(s) Supporting Document(s) SARS coronavirus 2 RNA [Presence] in Res piratory specimen by ARLETTE with probe detection [facility] This lab was ordered by [facility] a nd reported by [facility]. ID Date Data Source [id number] 08/10/2020 05:31:00 PM EST [facility] Name Value Range Interpretation Code Description Data Aura rce(s) Supporting Document(s) SARS coronavirus 2 RNA [Presence] in Res piratory specimen by ARLETTE with probe detection [facility] This lab was ordered by [facility] a nd reported by [facility]. ID Date Data Source [id number] 08/10/2020 01:39:00 PM EST [facility] Name Value Range Interpretation Code Description Data Aura rce(s) Supporting Document(s) Appearance, Urine RFX Laboratory test result [facility] ([place] [facility]) PH,Urine RFX 5.0 units 5.0-9.0 [facility] ([place] [facility] Color, Urine RFX Laboratory test result [facility] ([place] [facility] Protein, Urine Auto RFX Laboratory test result [facility] ([place] [facility]) Specific [place] Ur Auto RFX 1.016 1.002-1.035 [facility] ([place] [facility]) Ketone, Urine Auto RFX Laboratory test result [facility] ([place] [facility]) Glucose, Urine (Ua) Auto RFX Laboratory test result [facility] ([place] [facility]) Bilirubin, Urine Auto RFX Laboratory test result [facility] ([place] [facility] Urobilinogen, Urine Auto RFX 0.2 mg/dL 0.0-2.0 [facility] ([place] [facility]) Leukocyte Esterase Ur Auto RFX Laboratory test result [facility] ([facility]) Blood, Urine Blood RFX Laboratory test result [facility] ([place] [facility]) Nitrite, Urine Auto RFX Laboratory test result [facility] ([place] [facility]) RBC, Urine Auto RFX 6 /HPF 0-3 [facility] WBC, Urine Auto RFX 1 /HPF 0-3 [facility] ([facility]) Squam Epithelial Cell Ur Aurfx 0 /HPF 0-6 [facility] ([facility]) Bacteria, Urine Auto RFX Laboratory test result [facility] ([facility]) Hyaline Cast, Urine Auto RFX 0 /LPF 0-1 [facility] ([facility]) ID Date Data Source [id number] 08/10/2020 01:39:00 PM EST [facility] ([facility]) Name Value Range Interpretation Code Description Data Aura rce(s) Supporting Document(s) Glucose, Fasting 344 mg/dL 70-100 [facility] ([facility]) Creatinine For GFR 0.93 mg/dL 0.55-1.30 [facility] ([facility]) Blood Urea Nitrogen 19 mg/dL 7-18 [facility] ([facility]) Sodium Level 135 meq/L 136-145 [facility] ([facility]) Glomerular Filtration Rate Laboratory test result [facility] ([place] [facility] <content>Units are mL/min/1.73 m2</content>
<content></content>
<content>Chronic Kidney Disease Staging per NKF:</content>
<content></content>
<content>Stage I & II GFR >=60 Normal to Mildly Decreased</content>
<content>Stage III GFR 30- 59 Moderately Decreased</content>
<content>Stage IV GFR 15-29 Severely Decreased</content>
<content>Stage V GFR <15 Very Little GFR Left</content>
<content>ESRD GFR <15 on FINANCIAL SERVICES SPECIALIST</content>
<content></content> Potassium Serum 5.0 meq/L 3.5-5.1 [facility] ([facility]) Chloride Level 102 meq/L 98-107 [facility] ([facility]) Anion Gap 10 meq/L 8-16 [facility] ([place] [facility]) Carbon Dioxide Level 23 meq/L 21-32 [facility] ([facility]) Calcium Level 9.3 mg/dL 8.8-10.2 [facility] ([facility]) ID Date Data Source [id number] 08/10/2020 12:26:00 PM EST [facility] ([facility]) Name Value Range Interpretation Code Description Data Aura rce(s) Supporting Document(s) Bedside Glucose 342 mg/dL 83-110 [facility] ([facility]) ID Date Data Source [id number] 08/10/2020 12:21:00 PM EST [facility] ([facility]) Name Value Range Interpretation Code Description Data Aura rce(s) Supporting Document(s) Glucose, Fasting 345 mg/dL 70-100 [facility] ([facility]) Blood Urea Nitrogen 20 mg/dL 7-18 [facility] ([facility]) Creatinine For GFR 0.94 mg/dL 0.55-1.30 [facility] ([facility]) Glomerular Filtration [facility] <content>Units are mL/min/1.73 m2</content>
<content></content>
<content>Chronic Kidney Disease Staging per NKF:</content>
<content></content>
<content>Stage I & II GFR >=60 Normal to Mildly Decreased</content>
<content>Stage III GFR 30- 59 Moderately Decreased</content>
<content>Stage IV GFR 15-29 Severely Decreased</content>
<content>Stage V GFR <15 Very Little GFR Left</content>
<content>ESRD GFR <15 on FINANCIAL SERVICES SPECIALIST</content>
<content></content> Sodium Level 134 meq/L 136-145 [facility] ([facility]) Chloride Level 102 meq/L 98-107 [facility] ([facility]) Potassium Serum 6.0 meq/L 3.5-5.1 [facility] ([facility]) Testing was performed on a hemolysed spe cimen. Suggest recollection of specimen for more accurate test results. Carbon Dioxide Level 25 meq/L 21-32 [facility] Anion Gap 7 meq/L 8-16 [facility] ([place] [facility]) Calcium Level 9.3 mg/dL 8.8-10.2 [facility] ([facility]) Ast/Sgot 42 U/L 7-37 [facility] ([place] [facility]) Alt/SGPT 26 U/L 12-78 [facility] [facility] Alkaline Phosphatase 127 U/L 45-117 [facility] Bilirubin,Total 0.6 mg/dL 0.2-1.0 [facility] ([facility]) Total Protein 7.8 GM/DL 6.4-8.2 [facility] ([facility]) Albumin 3.2 GM/DL 3.2-5.2 [facility] ([place] [facility] [facility]) Albumin/Globulin Ratio 0.7 1.2-2.2 [facility] ([facility]) ID Date Data Source [id number] 08/10/2020 12:21:00 PM EST [facility] ([facility]) Name Value Range Interpretation Code Description Data Aura rce(s) Supporting Document(s) Red Blood Count 3.71 10 4.00-5.40 [facility] ([facility]) White Blood Count 14.0 10 4.0-10.0 [facility] ([facility]) Hemoglobin 10.3 g/dL 12.0-15.5 [facility]) Mean Corpuscular Volume 91.6 fl 80.0-96.0 [facility] ([facility]) Hematocrit 34.0 % 36.0-47.0 [facility] Mean Corpuscular HGB Conc 30.3 g/dL 32.0-36.5 MEDE NT ([facility]) Mean Corpuscular Hemoglobin 27.8 pg 27.0-33.0 ME DENT ([facility]) Red Cell Distribution Width 15.4 % 11.5-14.5 ME DENT ([facility]) Platelet Count, Automated 260 10 150-450 MEDE NT ([facility]) Nucleated Red Blood Cell % 0.0 % 0-0 MED ENT ([facility]) ID Date Data Source [id number] 08/10/2020 12:21:00 PM EST [facility] ([facility]) Name Value Range Interpretation Code Description Data Aura rce(s) Supporting Document(s) Acetone/Ketone 22.73 mg/dL [facility] ([facility]) ID Date Data Source [id number] 08/10/2020 12:21:00 PM EST [facility] ([facility]) Name Value Range Interpretation Code Description Data Aura rce(s) Supporting Document(s) Venous Partial Pressure Co2 52.5 mmHg 38.0-50.0 [facility] ([facility]) Venous PH 7.311 units 7.330-7.430 [facility] ([facility]) Venous Total Co2 27.5 meq/L 24.0-28.0 [facility] ([facility]) Venous Partial Pressure O2 49.0 mmHg 30.0-50.0 [facility] ([facility]) Venous Hco3 25.9 meq/L 23.0-27.0 [facility] ([facility]) Venous Base Excess -0.8 [facility] ([facility]) Venous Standard Hco3 23.5 meq/L [facility] ( [facility]) Venous O2 Saturation 81.4 % 60.0-80.0 [facility] ([facility]) ID Date Data Source [id number] 08/10/2020 12:21:00 PM EST [facility] ([facility]) Name Value Range Interpretation Code Description Data Aura rce(s) Supporting Document(s) Hemoglobin A1c 10.8 % [facility] <content>REFERENCE RANGES:</content><br/ ><content></content>
<content><=5.6% NORMAL</content>
<content>5.7-6.4% SUGGESTS IMPAIRED GLUCOSE METABOLISM/PREDIABETIC</content>
<content>>= 6.5% ABNORMAL</content>
<content></content> Estimated Average Glucose 263 mg/dL 60-110 MEDE NT ([facility]) ID Date Data Source [id number] 08/10/2020 12:21:00 PM EST [facility] ([facility]) Name Value Range Interpretation Code Description Data Aura rce(s) Supporting Document(s) Lactate [Mass/volume] in Serum or Plasma 1.7 mmol/L 0.4-2.0 [facility] ([facility]) Y/N query for Sepsis Lactate Rule: Y ID Date Data Source [id number] 08/07/2020 12:59:00 AM EST [facility] Name Value Range Interpretation Code Description Data Aura rce(s) Supporting Document(s) Laboratory test finding (navigational concept) Laboratory test result [facility] ([facility]) A false negative result may occur if a s pecimen is improperly collected, transported or handled. False [...] pathogens. DISCLAIMER: Testing was performed using the [employer] SARS-CoV-2 test. This test was developed and its performance characteristics determined by [employer]. This test has not been FDA cleared [...] the authorization is terminated or revoked sooner. ID Date Data Source [id number] 08/07/2020 12:59:00 AM EST [facility] Name Value Range Interpretation Code Description Data Aura rce(s) Supporting Document(s) SARS coronavirus 2 RNA [Presence] in Res piratory specimen by ARLETTE with probe detection [facility] This lab was ordered by [facility] a nd reported by [facility]. ID Date Data Source [id number] 08/07/2020 12:57:00 AM EST [facility] Name Value Range Interpretation Code Description Data Aura rce(s) Supporting Document(s) Bedside Glucose 237 mg/dL 83-110 [facility] ([facility]) ID Date Data Source [id number] 08/06/2020 11:13:00 PM EST [facility] ([facility]) Name Value Range Interpretation Code Description Data Aura rce(s) Supporting Document(s) Bedside Glucose 219 mg/dL 83-110 [facility] ID Date Data Source [id number] 08/06/2020 08:05:00 PM EST [facility] ([facility] Name Value Range Interpretation Code Description Data Aura rce(s) Supporting Document(s) Color, Urine RFX Laboratory test result [facility] ([facility]) Appearance, Urine RFX Laboratory test result [facility] ([facility] PH,Urine RFX 5.0 units 5.0-9.0 [facility] ([facility]) Specific [place] Ur Auto RFX 1.023 1.002-1.035 [facility] ([facility]) Protein, Urine Auto RFX Laboratory test result [facility] ([facility]) Glucose, Urine (Ua) Auto RFX Laboratory test result [facility] ([facility]) Ketone, Urine Auto RFX Laboratory test result [facility] ([facility]) Urobilinogen, Urine Auto RFX 0.2 mg/dL 0.0-2.0 [facility] ([facility]) Bilirubin, Urine Auto RFX Laboratory test result [facility] ([facility]) Leukocyte Esterase Ur Auto RFX Laboratory test result [facility] ([facility]) Nitrite, Urine Auto RFX Laboratory test result [facility] ([facility]) Blood, Urine Blood RFX Laboratory test result [facility] ([facility]) RBC, Urine Auto RFX 6 /HPF 0-3 [facility] ([facility]) WBC, Urine Auto RFX 42 /HPF 0-3 [facility] ([facility]) Bacteria, Urine Auto RFX Laboratory test result [facility] ([facility]) Squam Epithelial Cell Ur Aurfx 2 /HPF 0-6 [facility] ([facility]) Hyaline Cast, Urine Auto RFX 0 /LPF 0-1 M [facility] ([facility] ID Date Data Source [id number] 08/06/2020 06:27:00 PM EST [facility] ([facility]) Name Value Range Interpretation Code Description Data Aura rce(s) Supporting Document(s) ABG pH (Arterial) 7.361 units 7.350-7.450 [facility] ( [facility]) ABG Partial Pressure Co2 38.2 mmHg 35.0-45.0 [facility] ABG Partial Pressure O2 89.0 mmHg 75.0-100.0 [facility] ABG Total Co2 22.3 meq/L 23.0-31.0 [facility] ([facility]) ABG Hco3 21.1 meq/L 22.0-26.0 [facility] ABG Base Excess -3.9 [facility] ([facility]) ABG Standard Hco3 21.2 meq/L 22.0-26.0 [facility] ([facility]) ABG O2 Saturation 96.2 % 95.0-99.0 [facility] ([facility]) ID Date Data Source [id number] 08/06/2020 06:18:00 PM EST [facility] ([facility]) Name Value Range Interpretation Code Description Data Aura rce(s) Supporting Document(s) White Blood Count 11.2 10 4.0-10.0 [facility] ([facility]) Red Blood Count 3.97 10 4.00-5.40 [facility] ([facility]) Hematocrit 36.1 % 36.0-47.0 [facility] Hemoglobin 11.1 g/dL 12.0-15.5 [facility] Mean Corpuscular Volume 90.9 fl 80.0-96.0 [facility] ([facility]) Mean Corpuscular Hemoglobin 28.0 pg 27.0-33.0 [facility] ([facility]) Red Cell Distribution Width 14.9 % 11.5-14.5 [facility] ([facility]) Mean Corpuscular HGB Conc 30.7 g/dL 32.0-36.5 MEDE NT ([facility]) Platelet Count, Automated 234 10 150-450 MED[facility] NT ([facility]) Neutrophils % 68.6 % 36.0-66.0 [facility] ([facility]) [place] % 9.5 % 0.0-5.0 [facility] Lymph % 20.7 % 24.0-44.0 [facility] Eos % 0.3 % 0.0-3.0 [facility] ([facility] Baso % 0.5 % 0.0-1.0 [facility]) Immature Granulocyte % 0.4 % 0-3.0 [facility] ([facility]) Nucleated Red Blood Cell % 0.0 % 0-0 MED ENT ([facility]) Neutrophils # 7.7 10 1.5-8.5 [facility] ([facility]) Lymph # 2.3 10 1.5-5.0 [facility] [place] # 1.1 10 0.0-0.8 [facility] ([facility]) Eos # 0.0 10 0.0-0.5 [facility] ([facility] Baso # 0.1 10 0.0-0.2 [facility] ([facility] ID Date Data Source [id number] 08/06/2020 06:18:00 PM EST [facility] ([facility]) Name Value Range Interpretation Code Description Data Aura rce(s) Supporting Document(s) CPK Creatine Phosphokinase 103 U/L 26-192 MED ENT ([facility]) MB/CK Relative Index 5.15 [facility] ([facility]) <content>DIAGNOSIS CRITERIA</content>
<content>MMB ng/ml Relative Index (RI)</content>
<content>NON-AMI < or = 5 N/A</content>
<content>OSULLIVAN ZONE > 5 < or = 4</content>
<content>AMI > 5 > 4</content>
<content></content> Troponin I 0.07 ng/mL [facility] ([facility]) <content>Troponin I Reference Interval f or Siemens Emmett LOCI:</content>
<content></content>
<content>99th Percentile= 0.00-0.045 ng/ml</content>
<content></content>
<content>Risk Stratification:</content>
<content><= 0.10 ng/ml Decreased Risk for Adverse Clinical</content>
<content>Events.</content>
<content>0.10-1.50 ng/ml Increased Risk for Adverse Clinical</content>
<content>Events. Evaluation of additional</content>
<content>criterion and/or repeat testing in 2-6</content>
<content>hours is suggested to rule out myocardial</content>
<content>damage.</content>
<content>>= 1.50 ng/ml Indicative of Myocardial Injury.</content>
<content></content> CK-MB Value Mass 5.3 ng/mL [facility] ([facility]) ID Date Data Source [id number] 08/06/2020 06:18:00 PM EST [facility] ([facility]) Name Value Range Interpretation Code Description Data Aura rce(s) Supporting Document(s) Ast/Sgot 18 U/L 7-37 [facility]) Alt/SGPT 24 U/L 12-78 [facility] ([facility]) Alkaline Phosphatase 150 U/L 45-117 [facility] ([facility]) Bilirubin,Direct 0.1 mg/dL 0.0-0.2 [facility] ([facility]) Total Protein 8.5 GM/DL 6.4-8.2 [facility] ([facility]) Bilirubin,Total 0.5 mg/dL 0.2-1.0 [facility] ([facility]) Albumin 3.4 GM/DL 3.2-5.2 [facility] ([facility]) Albumin/Globulin Ratio 0.7 1.2-2.2 [facility] ([facility]) ID Date Data Source [id number] 08/06/2020 06:18:00 PM EST [facility] ([facility]) Name Value Range Interpretation Code Description Data Aura rce(s) Supporting Document(s) Glucose, Fasting 465 mg/dL 70-100 Above upper panic limits [facility] ([facility]) Blood Urea Nitrogen 26 mg/dL 7-18 [facility] ([facility]) Creatinine For GFR 1.34 mg/dL 0.55-1.30 [facility] ([facility]) Glomerular Filtration Rate 40.3 MED ENT ([facility]) <content>Units are mL/min/1.73 m2</content>
<content></content>
<content>Chronic Kidney Disease Staging per NKF:</content>
<content></content>
<content>Stage I & II GFR >=60 Normal to Mildly Decreased</content>
<content>Stage III GFR 30- 59 Moderately Decreased</content>
<content>Stage IV GFR 15-29 Severely Decreased</content>
<content>Stage V GFR <15 Very Little GFR Left</content>
<content>ESRD GFR <15 on FINANCIAL SERVICES SPECIALIST</content>
<content></content> Sodium Level 130 meq/L 136-145 [facility] ([facility]) Potassium Serum 5.0 meq/L 3.5-5.1 [facility] ([facility]) Carbon Dioxide Level 22 meq/L 21-32 [facility] ([facility]) Chloride Level 98 meq/L 98-107 [facility] ([facility]) Anion Gap 10 meq/L 8-16 [facility] ([facility] [place] [facility]) Calcium Level 9.0 mg/dL 8.8-10.2 [facility] ([facility]) ID Date Data Source [id number] 08/06/2020 06:18:00 PM EST [facility] ([facility]) Name Value Range Interpretation Code Description Data Aura rce(s) Supporting Document(s) Phosphate [Moles/volume] in Serum or Plasma 3.2 mg/dL 2.5-4.9 [facility] ([facility]) Magnesium [Moles/volume] in Serum or Plasma 2.0 mg/dL 1.8-2.4 [facility] ([facility]) ID Date Data Source [id number] 08/06/2020 06:18:00 PM EST [facility] Name Value Range Interpretation Code Description Data Aura rce(s) Supporting Document(s) Acetone/Ketone 33.08 mg/dL [facility] ([facility]) ID Date Data Source [id number] 08/06/2020 06:18:00 PM EST [facility] Name Value Range Interpretation Code Description Data Aura rce(s) Supporting Document(s) Lipoprotein lipase [Enzymatic activity/volume] in Serum or Plasm a 38 U/L 73-393 [facility] ([facility] Osmolality of Serum or Plasma 311 MOSM/KG 280-301 [facility] ([facility] ID Date Data Source [id number] 08/06/2020 06:18:00 PM EST [facility] ([facility] Name Value Range Interpretation Code Description Data Aura rce(s) Supporting Document(s) Hemoglobin A1c 11.2 % [facility] ([facility]) <content>REFERENCE RANGES:</content><br/ ><content></content>
<content><=5.6% NORMAL</content>
<content>5.7-6.4% SUGGESTS IMPAIRED GLUCOSE METABOLISM/PREDIABETIC</content>
<content>>= 6.5% ABNORMAL</content>
<content></content> Estimated Average Glucose 275 mg/dL 60-110 [facility] NT ([facility] ID Date Data Source [id number] 08/06/2020 06:18:00 PM EST [facility] ([facility] Name Value Range Interpretation Code Description Data Aura rce(s) Supporting Document(s) Ammonia [Mass/volume] in Blood 44 uMOL/L [facility] ([facility] ID Date Data Source [id number] 05/22/2020 09:38:00 AM EDT [facility] ([facility] Name Value Range Interpretation Code Description Data Aura rce(s) Supporting Document(s) Microalbumin Urine 69.8 mg/L 1.3-20.0 [facility] ([facility]) Microalb/Creat Ratio 55.7 ug/mg 0.0-30.0 [facility] ( [facility]) Urine Creatinine 125.4 mg/dL 30.0-125.0 [facility] ([facility]) ID Date Data Source [id number] 05/22/2020 09:38:00 AM EDT [facility] ([facility]) Name Value Range Interpretation Code Description Data Aura rce(s) Supporting Document(s) Glucose [Mass/volume] in Serum or Plasma 131 mg/dL 74-99 [facility] ([facility]) 100-125 mg/dL PRE-DIABETES/FASTING >126 mg/dL DIABETES/FASTING Urea nitrogen [Mass/volume] in Serum or Plasma 25 mg/dL 7-18 [facility] ([facility]) Creatinine 1.0 mg/dL 0.6-1.3 [facility] ([facility]) Sodium [Moles/volume] in Serum or Plasma 141 meq/L 136-145 [facility] ([facility]) Potassium [Moles/volume] in Serum or Plasma 4.1 meq/L 3.5-5.1 [facility] ([facility]) Chloride [Moles/volume] in Serum or Plasma 105 meq/L 98-107 [facility] ([facility]) Carbon dioxide, total [Moles/volume] in Serum or Plasma 27 meq/L 21 -32 [facility] ([facility]) Calcium [Mass/volume] in Serum or Plasma 8.9 mg/dL 8.5-10.1 [facility] ([facility]) Glomerular filtration rate/1.73 sq M pre dicted among non-blacks [Volume Rate/Area] in Serum or Plasma by Creatinine-based formula (MDRD) 53 mL/min [facility] ([facility]) Glomerular filtration rate/1.73 sq M pre dicted among blacks [Volume Rate/Area] in Serum or Plasma by Creatinine-based formula (MDRD) Laboratory test result [facility] ([facility] <content>CHRONIC KIDNEY DISEASE STAGING PER NKF</content>
<content></content>
<content>STAGE I & II GFR >= 60 NORMAL TO MILDLY DECREASED</content>
<content>STAGE III GFR 30-59 MODERATELY DECREASED</content>
<content>STAGE IV GFR 15-29 SEVERELY DECREASED</content>
<content>STAGE V GFR <15 VERY LITTLE GFR LEFT</content>
<content>ESRD GFR <15 ON FINANCIAL SERVICES SPECIALIST</content>
<content></content> ID Date Data Source [id number] 05/22/2020 09:38:00 AM EDT [facility] Name Value Range Interpretation Code Description Data Aura rce(s) Supporting Document(s) Hemoglobin A1c/Hemoglobin.total in Blood 12.0 % [facility] ([place] [facility] NOTE: RESULT VERIFIED. Lab Result Notes: Pre-Diabetes 5.7 - 6.4 % Diabetes = or > 6.5% Glucose mean value [Mass/volume] in Blood Estimated fr om glycated hemoglobin 298 mg/dL 60-110 [facility] ([facility] ) ID Date Data Source [id number] 05/22/2020 09:38:00 AM EDT [facility] ([facility]) Name Value Range Interpretation Code Description Data Aura rce(s) Supporting Document(s) Erythrocytes [#/volume] in Blood by Automated count 3.83 x10*6/UL 4.2 0-6.30 [facility] ([place] [facility] Hemoglobin [Mass/volume] in Blood 10.9 g/dL 12.0-18.0 [facility] ([place] [facility] Leukocytes [#/volume] in Blood by Automated count 11.6 x10*3/UL 4.1-1 0.9 [facility] ([place] [facility] NOTE: RESULT VERIFIED. Hematocrit [Volume Fraction] of Blood by Automated count 32.6 % 3 7.0-51.0 [facility]) MCV 85.2 fL 80.0-97.0 [facility] ([place] [facility]) MCH 28.5 pg 26.0-32.0 [facility] ([place] [facility]) Erythrocyte distribution width [Ratio] by Automated count 14.3 % 11.6-13.7 [facility] ([facility]) MCHC 33.4 g/dL 31.0-38.0 [facility] ([place] [facility]) Platelets [#/volume] in Blood by Automated count 285 x10*3/UL 140-440 [facility] ([facility]) MPV 8.8 FL 7.8-11.0 [facility] ([place] [facility] Mid % 7.4 % 1.7-9.3 [facility] ([place] [facility] Lymph % 26.8 % 10.0-58.5 [facility] ([place] [facility] Neut % 65.8 % 37.0-92.0 [facility] ([place] [facility]) Mid # 0.9 x10*3/UL 0.1-0.6 [facility] ([facility]) Lymph # 3.1 x10*3/UL 0.6-4.1 [facility] ([facility]) Neut # 7.6 x10*3/UL 2.0-7.8 [facility] ([facility]) Procedure Social History Code Duration Value Status Description Data Source(s ) Smoking 10/12/2020 10:52:59 AM EST Ex-smoker (finding) complet ed Ex-smoker (finding) STEPHANIE (Inderjit Interiano MD [facility]) Smoking 05/09/2020 01:41:55 PM EDT Ex-smoker (finding) complet ed Ex-smoker (finding) STEPHANIE (Inderjit Interiano MD [facility]) Vital Signs ID Date Data Source [id number] Name Value Range Interpretation Code Description Data Source(s) Body weight 147.00 [lb_av] 147.00 [lb_av] [facility] T ([facility]) Body mass index (BMI) [Ratio] 25.4 kg/m2 25.4 k g/m2 [facility] ([facility]) Diastolic blood pressure 80 mm[Hg] 80 mm[Hg] [facility] ([facility]) Systolic blood pressure 144 mm[Hg] 144 mm[Hg] M EDENT ([facility]) Heart rate 68 /min 68 /min [facility] ([facility]) Body height 63.75 [in_i] 63.75 [in_i] [facility] ([facility]) 5'3.75" Systolic blood pressure 146 mm[Hg] 146 mm[Hg] [facility] ([facility]) Diastolic blood pressure 72 mm[Hg] 72 mm[Hg] [facility] ([facility]) Heart rate 65 /min 65 /min [facility] ([facility]) Body height 63.75 [in_i] 63.75 [in_i] [facility] ([facility] '3.75" Body weight 147.00 [lb_av] 147.00 [lb_av] MED[facility] T ([facility]) Oxygen saturation in Arterial blood by Pulse oximetry 96 % 96 % [facility] Body mass index (BMI) [Ratio] 25.4 kg/m2 25.4 k g/m2 [facility] ([facility]) Diastolic blood pressure 80 mm[Hg] 80 mm[Hg] [facility] ([facility]) Heart rate 68 /min 68 /min [facility] ([facility]) Systolic blood pressure 130 mm[Hg] 130 mm[Hg] [facility] ([facility]) Body height 63.75 [in_i] 63.75 [in_i] [facility] ([facility]) '3.75" Body weight 150.00 [lb_av] 150.00 [lb_av] [facility] T ([facility]) Body mass index (BMI) [Ratio] 25.9 kg/m2 25.9 k g/m2 [facility] ([facility]) Systolic blood pressure 132 mm[Hg] 132 mm[Hg] [facility] ([facility]) Diastolic blood pressure 78 mm[Hg] 78 mm[Hg] [facility] ([facility]) Body height 63.75 [in_i] 63.75 [in_i] [facility] ([facility]) 5'3.75" Body weight 156.00 [lb_av] 156.00 [lb_av] MED[facility] T ([facility]) Heart rate 70 /min 70 /min [facility] ([facility]) Oxygen saturation in Arterial blood by Pulse oximetry 95 % 95 % [facility]) Body mass index (BMI) [Ratio] 27.0 kg/m2 27.0 k g/m2 [facility] ([facility]) Systolic blood pressure 120 mm[Hg] 120 mm[Hg] [facility] Diastolic blood pressure 70 mm[Hg] 70 mm[Hg] [facility] ([facility]) Body height 63.75 [in_i] 63.75 [in_i] [facility] ([facility]) 5'3.75" Body weight 160.12 [lb_av] 160.12 [lb_av] [facility] T ([facility]) Body mass index (BMI) [Ratio] 27.7 kg/m2 27.7 k g/m2 [facility] Heart rate 71 /min 71 /min MEDENT ([facility]) Body height 63.75 [in_i] 63.75 [in_i] MEDENT ([facility]) 5'3.75" Body weight 156.00 [lb_av] 156.00 [lb_av] MEDEN T ([facility]) Oxygen saturation in Arterial blood by Pulse oximetry 94 % 94 % [facility] ([facility]) Air Body mass index (BMI) [Ratio] 27.0 kg/m2 27.0 k g/m2 [facility] ([facility] Body mass index (BMI) [Ratio] 25.9 kg/m2 25.9 k g/m2 [facility] ([facility]) Systolic blood pressure 136 mm[Hg] 136 mm[Hg] [facility] Diastolic blood pressure 80 mm[Hg] 80 mm[Hg] [facility] Heart rate 78 /min 78 /min MEDENT ([facility]) Body height 63.75 [in_i] 63.75 [in_i] MEDENT ([facility]) 5'3.75" Body weight 150.00 [lb_av] 150.00 [lb_av] MEDEN T ([facility]) Body height 63.75 [in_i] 63.75 [in_i] MEDENT ([facility]) 5'3.75" Body weight 155.00 [lb_av] 155.00 [lb_av] BETTY Heredia ([facility]) Body mass index (BMI) [Ratio] 26.8 kg/m2 26.8 k g/m2 NABIL ([facility]) Heart rate 82 /min 82 /min NABIL ([facility]) Systolic blood pressure 150 mm[Hg] 150 mm[Hg] M EDREJI ([facility]) Diastolic blood pressure 62 mm[Hg] 62 mm[Hg] NABIL ([facility])
[2021-06-09 17:52] LABS: BASO # 0.1 10^3/uL (0.0-0.2); BASO % 0.6 % (0.0-1.0); EOS # 0.1 10^3/uL (0.0-0.5); HEMATOCRIT 36.1 % (36.0-47.0); HEMOGLOBIN 11.3 g/dl (12.0-15.5); LYMPH # 2.4 10^3/uL (1.5-5.0); LYMPH % 22.7 % (24.0-44.0); MEAN CORPUSCULAR HEMOGLOBIN 29.3 pg (27.0-33.0); MEAN CORPUSCULAR HGB CONC 31.3 g/dl (32.0-36.5); MEAN CORPUSCULAR VOLUME 93.5 fl (80.0-96.0); MONO # 1.2 10^3/uL (0.0-0.8); NEUTROPHILS # 6.6 10^3/uL (1.5-8.5); NEUTROPHILS % 63.3 % (36.0-66.0); PLATELET COUNT, AUTOMATED 231 10^3/uL (150-450); RED BLOOD COUNT 3.86 10^6/uL (4.00-5.40); WHITE BLOOD COUNT 10.3 10^3/uL (4.0-10.0)
[2021-06-09 17:56] LABS: AMPHETAMINES LEVEL URINE NEGATIVE (NEGATIVE); BARBITURATES URINE NEGATIVE (NEGATIVE); BENZODIAZEPINES URINE NEGATIVE (NEGATIVE); CANNABINOIDS URINE NEGATIVE (NEGATIVE); COCAINE METABOLITE URINE NEGATIVE (NEGATIVE); METHADONE URINE NEGATIVE (NEGATIVE); OPIATES URINE NEGATIVE (NEGATIVE); PHENCYCLIDINE URINE NEGATIVE (NEGATIVE)
[2021-06-09 18:31] LABS: ALBUMIN 3.4 GM/DL (3.2-5.2); ALT/SGPT 18 U/L (12-78); BILIRUBIN,DIRECT 0.2 MG/DL (0.0-0.2); BILIRUBIN,TOTAL 0.7 MG/DL (0.2-1.0); BLOOD UREA NITROGEN 14 MG/DL (7-18); CALCIUM LEVEL 9.2 MG/DL (8.8-10.2); CARBON DIOXIDE LEVEL 30 MEQ/L (21-32); CHLORIDE LEVEL 100 MEQ/L (98-107); CK-MB VALUE MASS < 1.0 NG/ML (<3.6); CPK CREATINE PHOSPHOKINASE 68 U/L (26-192); CREATININE FOR GFR 0.88 MG/DL (0.55-1.30); ETHYL ALCOHOL (ETHANOL) < 0.003 % (0.000-0.010); GLOMERULAR FILTRATION RATE > 60.0 (>32); GLUCOSE, FASTING 320 MG/DL (70-100); MB/CK RELATIVE INDEX 1.47 (< OR =4); POTASSIUM SERUM 4.3 MEQ/L (3.5-5.1); SALICYLATE LEVEL < 1.7 MG/DL (5.0-30.0); SODIUM LEVEL 135 MEQ/L (136-145); TOTAL PROTEIN 8.2 GM/DL (6.4-8.2); TROPONIN I < 0.02 NG/ML (< 0.10)
[2021-06-09 18:32] LABS: ACETAMINOPHEN LEVEL < 2.0 UG/ML (10.0-30.0)
[2021-06-09 18:40] LABS: OSMOLALITY SERUM 299 MOSM/KG (280-301)
[2021-06-09] MEDS ORDERED: cefTRIAXone SOD 1 GM in D5W MINI-BAG PLUS 50 ML IV ONE (19:10)
[2021-06-09] MEDS ORDERED: FLUCONAZOLE 200 MG in IV 1 EA IV ONE (19:10)
[2021-06-09] MEDS ORDERED: GLUCAGON INJ 1MG VIAL SC PRN (20:00)
[2021-06-09] MEDS ORDERED: MOM 30ML SUSPENSION UDC PO PRN (20:00)
[2021-06-09] MEDS ORDERED: MAALOX 30 ML SUSP *UDC PO PRN (20:00)
[2021-06-09] MEDS ORDERED: GLUCOSE 4GM CHEW TABLET PO PRN (20:00)
[2021-06-09] MEDS ORDERED: DEXTROSE 50% 50 ML SYRINGE IV PRN (20:00)
[2021-06-09] MEDS ORDERED: ACETAMINOPHEN TAB 650MG DOSE (2X325MG) PO PRN (20:00)
--- NOTE | 2021-06-09 20:07 | ECGEPIP ---
[facility] - ED Test Date: 2021-06-09 Pat Name: JAJA WEBB Department: Room: - Gender: Female Nuclear Medicine Officer: TEVIN : 1940 Requested By: KIMANI MAHAJAN Order Number: [id number] Reading MD: Greg Mcpherson Measurements Intervals [place] Rate: 67 P: 88 [place]: 190 QRS: 7 QRSD: 80 T: 43 QT: 406 QTc: 429 Interpretive Statements Normal sinus rhythm INCOMPLETE RIGHT BUNDLE BRANCH BLOCK Electronically Signed on 06-09-2021 20:07:15 EDT by Greg Mcpherson
[2021-06-09] MEDS ORDERED: METF-838 PO ×2 (20:12)
[2021-06-09 20:13] LABS: RSV AMPLIFICATION NEGATIVE (NEGATIVE)
[2021-06-09] MEDS ORDERED: HOME MED LIST COMPLETE! XX SCH (20:15)
--- NOTE | 2021-06-09 20:16 | HPEPDOC ---
[facility] Medical History & Physical Date of Admission Jun 09, 2021 Date of Service: Jun 09, 2021 Attending Physician: JUAN DANIEL HALL MD History and Physical CHIEF COMPLAINT: [81 y/o female brought into ED for ams] HISTORY OF PRESENT ILLNESS: [This is an 81 y/o female with a pmh of dementia, iddm2, hld, htn and asthma who was brought into the ED on 06/09 via ems for evaluation of acute altered mental status. As of my exam of patient, she is pleasantly confused and a poor historian. Per ED staff, patient was found today by a friend to be naked in her home and apparently had been urinating on the floor. Patient is unaware of these events when I prompt her. Patient tells me that she feels fine and denies any acute fevers, chills, chest pain, sob, abd pain, dysuria, n/v/d/c, recent falls Patient admitted to use previously in 02/11 for similar symptoms and found to have infected urine and recovered well with iv abx. Today, her ua is + for wbc and leuk est, negative for bacteria, and has a moderate amount of yeast.] PAST MEDICAL HISTORY: 1. [See HPI PAST SURGICAL HISTORY: 1. [Tubal ligation]. 2. [D&C]. 3. [C Section x5 4. Hysterectomy]. SOCIAL HISTORY: Tobacco use:[Former] ETOH: [Denies] Illicit drug use: [Denies] FAMILY HISTORY: Reviewed chart - none pertinent ALLERGIES: Please see below. REVIEW OF SYSTEMS: CONSTITUTIONAL: [denies fevers, chills]. HEENT: [denies uri sx]. CARDIOVASCULAR: [Denies chest pain, palpitations]. RESPIRATORY: [Denies sob]. GASTROINTESTINAL: [See HPI]. GENITOURINARY: [See HPI]. SKIN: [Denies rash]. MUSCULOSKELETAL: [Denies acute joint/back pain]. NEUROLOGICAL: [Denies syncope]. ENDOCRINE: [Hx of iddm]. HEMATOLOGIC/LYMPHATIC: [Denies hx of vte]. HOME MEDICATIONS: Please see below. PHYSICAL EXAMINATION: VITAL SIGNS: Please see below. GENERAL APPEARANCE: [Pleasantly confused 81 y/o female seated in bed. She does not appear to be in any acute distress]. HEENT: [No mass or lesion. EOMI. No scleral icterus. Nares patent. Oral mucosa moist]. CARDIOVASCULAR: [Regular rate, rhythm. No murmurs, rubs, gallops]. LUNGS: [Good air flow b/l. No wheezing, rales, rhonchi]. ABDOMEN: [Soft, nontender]. MUSCULOSKELETAL: [No joint deformity]. EXTREMITIES: [No pedal edema. No overlying skin changes. Pulses intact]. NEUROLOGICAL: [Patient pleasantly confused. Oriented to person, place, is not entirely sure why she is in the hospital at this time. Speech clear. Patient moves all fours freely.]. PSYCHIATRIC: [Pleasantly confused]. LABORATORY DATA: See below. IMAGING: [CT Head: FINDINGS: Atrophy with periventricular leukomalacia and microvascular ischemic changes are appreciated. The ventricles and sulci are symmetric. Fox-white differentiation is maintained. There is no evidence for acute intracranial hemorrhage, mass/mass effect, pathology or infarction. No extra-axial fluid collection. Calvarium is intact. Paranasal sinuses and mastoid air cells are clear. IMPRESSION: Atrophy and microvascular ischemic changes. No acute intracranial hemorrhage, infarction, or mass/mass effect. CXR: FINDINGS: The mediastinum and cardiac silhouette are stable and within normal limits for portable technique. The lung sanches demonstrate stable chronic changes without acute consolidation, effusion, or pneumothorax. Skeletal structures are intact. IMPRESSION: No acute cardiopulmonary process appreciated.] MICROBIOLOGY: Please see below. ASSESSMENT: [This is an 81 y/o female with a pmh of dementia, iddm2, hld, htn and asthma who was brought into the ED on 06/09 via ems for evaluation of acute altered mental status. Patient admitted to use previously in 02/11 for similar symptoms and found to have infected urine and recovered well with iv abx. Today, her ua is + for wbc and leuk est, negative for bacteria, and has a moderate amount of yeast.]. . PLAN: 1. [Metabolic encephalopathy 2/2 UTI - CT imaging of the head negative in the ED - Patient with ua + for wbc, leuk est, yeast - patient not meeting sirs criteria at this time. wbc only elevated to 10.3 - will empirically cover with rocephin, diflucan - urine cultures pending - blood cultures pending - admit to med surg for tx 2. IDDM2 with hyperglycemia - hyperglycemia likely 2/2 acute infection, possibly noncompliance d/t ams - will convert patients at home basal insulin to 40u levemir bid - sliding scale insulin - hypoglycemic protocol 3. HTN - continue ramipril 4. HLD - continue simvastatin 5. Anxiety/depression - continue sertraline 6. Asthma - continue at home inhalers DVT prophylaxis - lovenox]. Vital Signs Vital Signs Date Time Temp Pulse Resp B/P (MAP) Pulse Ox O2 Delivery O2 Flow Rate FiO2 06/09/21 19:30 69 16 171/105 (127) 95 Room Air 06/09/21 16:33 97.5 Laboratory Data Labs 24H Laboratory Tests 2 06/09/21 16:22: Urine Opiates Screen NEGATIVE, Urine Methadone Screen NEGATIVE, Urine Barbitura luigi Screen NEGATIVE, Urine Phencyclidine Screen NEGATIVE, Urine Amphetamines Screen NEGATIVE, Urine Benzodiazepines Screen NEGATIVE, Urine Cocaine Metabolite Screen NEGATIVE, Urine Cannabinoids Screen NEGATIVE 06/09/21 17:01: Urine Color YELLOW, Urine Appearance CLOUDYH, Urine pH 7.0, Urine Specific Romance 1.014, Urine Protein 2+H, Urine Glucose (UA) 3+H, Urine Ketones 1+H, Urine Blood 1+H, Urine Nitrite NEGATIVE, Urine Bilirubin NEGATIVE, Urine Urobilinogen 0.2, Urine Leukocyte Esterase 3+H, Urine WBC (Auto) TNTCH, Urine RBC (Auto) 60H, Urine Hyaline Casts (Auto) 0, Urine Bacteria (Auto) NEGATIVE, Urine Squamous Epithelial Cells 1, Urine Yeast-Like Cells (Auto) MODERATEH, Urine Sperm (Auto) 06/09/21 17:29: Bedside Glucose (Misc Panel) 314H 06/09/21 17:39: Immature Granulocyte % (Auto) 0.4, Neutrophils (%) (Auto) 63.3, Lymphocytes (%) (Auto) 22.7L, Monocytes (%) (Auto) 12.0H, Eosinophils (%) (Auto) 1.0, Basophils (%) (Auto) 0.6, Neutrophils # (Auto) 6.6, Lymphocytes # (Auto) 2.4, Monocytes # (Auto) 1.2H, Eosinophils # (Auto) 0.1, Basophils # (Auto) 0.1, Nucleated Red Blood Cells % (auto) 0.0, Anion Gap 5L, Glomerular Filtration Rate > 60.0, Osmolality 299, Lactic Acid Level 1.2, Calcium Level 9.2, Total Bilirubin 0.7, Direct Bilirubin 0.2, Aspartate Amino Transf (AST/SGOT) 14, Alanine Aminotransferase (ALT/SGPT) 18, Alkaline Phosphatase 134H, Ammonia < 10, Total Creatine Kinase 68, Creatine Kinase MB < 1.0, Creatine Kinase MB Relative Index 1.47, Troponin I < 0.02, Total Protein 8.2, Albumin 3.4, Albumin/Globulin Ratio 0.7L, Thyroid Stimulating Hormone (TSH) 1.960, Salicylates Level < 1.7L, Acetaminophen Level < 2.0L, Ethyl Alcohol Level < 0.003 06/09/21 19:26: Coronavirus (COVID-19)(PCR) NEGATIVE, Influenza Type A (RT-PCR) NEGATIVE, Influenza Type B (RT-PCR) NEGATIVE, Respiratory Syncytial Virus (PCR) NEGATIVE CBC/BMP Laboratory Tests 06/09/21 17:39 Microbiology Microbiology 06/09/21 Urine Culture, Received Pending 06/09/21 Blood Culture, Received Pending 06/09/21 Blood Culture, Received Pending Home Medications Scheduled Bisoprolol/Hydrochlorothiazide (Bisoprolol-Hctz 10-6.25 mg Tab) 1 Each Tablet, 1 TAB PO DAILY Ferrous Sulfate (Ferosul) 325 Mg Tablet, 325 MG PO DAILY Gabapentin (Gabapentin) 300 Mg Capsule, 600 MG PO QHS Insulin Aspart (Novolog Flexpen) 100 Unit/1 Ml Insuln.pen, 16 UNITS SQ BID BREAKFAST AND DINNER Insulin Degludec (Tresiba Flextouch U-200) 200 Unit/1 Ml Insuln.pen, 96 UNITS SQ DAILY Insulin Human Lispro (Novolog) 100 Unit/1 Ml Vial, 18 UNITS SC DAILY LUNCH Metformin HCl (Metformin HCl ER) 500 Mg Tab.er.24h, 500 MG PO BID BREAKFAST AND LUNCH Metformin HCl (Metformin HCl ER) 500 Mg Tab.er.24h, 1,000 MG PO QPM SUPPER Ramipril (Ramipril) 10 Mg Capsule, 10 MG PO QHS Salmeterol/Fluticasone (Advair 250-50 Diskus) 1 Each Blst.w.dev, 1 PUFF INH BID Sertraline HCl (Sertraline HCl) 50 Mg Tablet, 50 MG PO DAILY Simvastatin (Simvastatin) 20 Mg Tablet, 20 MG PO QHS Scheduled PRN Levalbuterol Tartrate (Levalbuterol Tartrate Hfa) 15 Gm Hfa.aer.ad, 2 PUFFS INH QID PRN for SHORTNESS OF BREATH Allergies Coded Allergies: aspirin (Verified Allergy, Unknown, 09/07/19) codeine (Verified Adverse Reaction, Mild, VOMITING, 08/06/20) A-FIB/CHADSVASC A-FIB History Current/History of A-Fib/PAF?: No REBECCA GOINS Jun 09, 2021 20:16
--- OUTSIDE RECORDS SUMMARY | 2021-06-09 20:24 | CCD ---
Author Author [facility] Organization [facility] Address Unknown Phone Unavailable Care Team Providers Care Revenue Enforcement Collection Agent Name Role Phone NO, PCP Unavailable Unavailable LePine, M Lorenza WOOL HAT FORMING MACHINE TENDER Unavailable Unavailable LePine, M Lorenza WOOL HAT FORMING MACHINE TENDER Unavailable Unavailable LePine, M Lorenza WOOL HAT FORMING MACHINE TENDER Unavailable Unavailable LePine, M Lorenza WOOL HAT FORMING MACHINE TENDER Unavailable Unavailable LePine, M Lorenza WOOL HAT FORMING MACHINE TENDER Unavailable Unavailable LePine, M Lorenza WOOL HAT FORMING MACHINE TENDER Unavailable Unavailable LePine, M Lorenza WOOL HAT FORMING MACHINE TENDER Unavailable Unavailable LePine, M Lorenza WOOL HAT FORMING MACHINE TENDER Unavailable Unavailable LePine, M Lorenza WOOL HAT FORMING MACHINE TENDER Unavailable Unavailable LePine, M Lorenza WOOL HAT FORMING MACHINE TENDER Unavailable Unavailable LePine, M Lorenza WOOL HAT FORMING MACHINE TENDER Unavailable Unavailable LePine, M Lorenza WOOL HAT FORMING MACHINE TENDER Unavailable Unavailable LePine, M Lorenza WOOL HAT FORMING MACHINE TENDER Unavailable Unavailable LePine, M Lorenza WOOL HAT FORMING MACHINE TENDER Unavailable Unavailable LePine, M Lorenza WOOL HAT FORMING MACHINE TENDER Unavailable Unavailable LePine, M Lorenza WOOL HAT FORMING MACHINE TENDER Unavailable Unavailable LePine, M Lorenza WOOL HAT FORMING MACHINE TENDER Unavailable Unavailable LePine, M Lorenza WOOL HAT FORMING MACHINE TENDER Unavailable Unavailable LePine, M Lorenza WOOL HAT FORMING MACHINE TENDER Unavailable Unavailable LePine, M Lorenza WOOL HAT FORMING MACHINE TENDER Unavailable Unavailable LePine, M Lorenza WOOL HAT FORMING MACHINE TENDER Unavailable Unavailable LePine, M Lorenza WOOL HAT FORMING MACHINE TENDER Unavailable Unavailable LePine, M Lorenza WOOL HAT FORMING MACHINE TENDER Unavailable Unavailable LePine, M Lorenza WOOL HAT FORMING MACHINE TENDER Unavailable Unavailable LePine, M Lorenza WOOL HAT FORMING MACHINE TENDER Unavailable Unavailable LePine, M Lorenza WOOL HAT FORMING MACHINE TENDER Unavailable Unavailable LePine, M Lorenza WOOL HAT FORMING MACHINE TENDER Unavailable Unavailable LePine, M Lorenza WOOL HAT FORMING MACHINE TENDER Unavailable Unavailable LePine, M Lorenza WOOL HAT FORMING MACHINE TENDER Unavailable Unavailable LePine, M Lorenza WOOL HAT FORMING MACHINE TENDER Unavailable Unavailable LePine, M Lorenza WOOL HAT FORMING MACHINE TENDER Unavailable Unavailable LePine, M Lorenza WOOL HAT FORMING MACHINE TENDER Unavailable Unavailable LePine, M Lorenza WOOL HAT FORMING MACHINE TENDER Unavailable Unavailable LePine, M Lorenza WOOL HAT FORMING MACHINE TENDER Unavailable Unavailable LePine, M Lorenza WOOL HAT FORMING MACHINE TENDER Unavailable Unavailable LePine, M Lorenza WOOL HAT FORMING MACHINE TENDER Unavailable Unavailable LePine, M Lorenza WOOL HAT FORMING MACHINE TENDER Unavailable Unavailable LePine, M Lorenza WOOL HAT FORMING MACHINE TENDER Unavailable Unavailable LePine, M Lorenza WOOL HAT FORMING MACHINE TENDER Unavailable Unavailable LePine, M Lorenza WOOL HAT FORMING MACHINE TENDER Unavailable Unavailable LePine, M Lorenza WOOL HAT FORMING MACHINE TENDER Unavailable Unavailable LePine, M Lorenza WOOL HAT FORMING MACHINE TENDER Unavailable Unavailable LePine, M Lorenza WOOL HAT FORMING MACHINE TENDER Unavailable Unavailable LePine, M Lorenza WOOL HAT FORMING MACHINE TENDER Unavailable Unavailable LePine, M Lorenza WOOL HAT FORMING MACHINE TENDER Unavailable Unavailable LePine, M Lorenza WOOL HAT FORMING MACHINE TENDER Unavailable Unavailable LePine, M Lorenza WOOL HAT FORMING MACHINE TENDER Unavailable Unavailable LePine, M Lorenza WOOL HAT FORMING MACHINE TENDER Unavailable Unavailable LePine, M Lorenza WOOL HAT FORMING MACHINE TENDER Unavailable Unavailable LePine, M Lorenza WOOL HAT FORMING MACHINE TENDER Unavailable Unavailable LePine, M Lorenza WOOL HAT FORMING MACHINE TENDER Unavailable Unavailable LePine, M Lorenza WOOL HAT FORMING MACHINE TENDER Unavailable Unavailable LePine, M Lorenza WOOL HAT FORMING MACHINE TENDER Unavailable Unavailable LePine, M Lorenza WOOL HAT FORMING MACHINE TENDER Unavailable Unavailable LePine, M Lorenza WOOL HAT FORMING MACHINE TENDER Unavailable Unavailable LePine, M Lorenza WOOL HAT FORMING MACHINE TENDER Unavailable Unavailable PICKERAL JR, J JOON PA-C [...] JOON PA-C Unavailable Unavailable PICKERAL JR, J OJON PA-C Unavailable Unavailable PICKERAL JR, J JOON PA-C Unavailable Unavailable Luke Bills MD Unavailable Unavailable Luke Bills MD Unavailable Unavailable Luke Bills MD Unavailable Unavailable Luke Bills MD Unavailable Unavailable Luke Bills MD Unavailable Unavailable Luke Bills MD Unavailable Unavailable Glen AubreyLuke MD Unavailable Unavailable SanjuLuke MD Unavailable Unavailable SanjuLuke MD Unavailable Unavailable Glen AubreyLuke MD Unavailable Unavailable SanjuLuke MD Unavailable Unavailable SanjuLuke MD Unavailable Unavailable SanjuLuke MD Unavailable Unavailable Glen AubreyLuke MD Unavailable Unavailable SanjuLuke MD Unavailable Unavailable Glen AubreyLuke MD Unavailable Unavailable SanjuLuke MD Unavailable Unavailable Glen AubreyLuke MD Unavailable Unavailable Glen AubreyLuke MD Unavailable Unavailable Glen AubreyLuke MD Unavailable Unavailable SanjuLuke MD Unavailable Unavailable Glen AubreyLuke MD Unavailable Unavailable SanjuLuke MD Unavailable Unavailable SanjuLuke MD Unavailable Unavailable Glen AubreyLuke MD Unavailable Unavailable SanjuLuke MD Unavailable Unavailable Glen AubreyLuke MD Unavailable Unavailable SanjuLuke MD Unavailable Unavailable Glen AubreyLuke MD Unavailable Unavailable SanjuLuke MD Unavailable Unavailable Glen AubreyLuke MD Unavailable Unavailable Glen AubreyLuke MD Unavailable Unavailable Glen AubreyLuke MD Unavailable Unavailable SanjuLuke MD Unavailable Unavailable Glen AubreyLuke MD Unavailable Unavailable SanjuLuek MD Unavailable Unavailable Glen AubreyLuke MD Unavailable Unavailable SanjuLuke MD Unavailable Unavailable Glen AubreyLuke MD Unavailable Unavailable SanjuLuke MD Unavailable Unavailable Glen AubreyLuke MD Unavailable Unavailable SanjuLuke perdomo MD Unavailable Unavailable Glen AubreyLuke MD Unavailable Unavailable SanjuLuke MD Unavailable Unavailable Glen AubreyLuke perdomo MD Unavailable Unavailable SanjuLuke MD Unavailable Unavailable SanjuLuke MD Unavailable Unavailable Glen AubreyLuke perdomo MD Unavailable Unavailable SanjuLuke perdomo MD Unavailable Unavailable Glen AubreyLuke MD Unavailable Unavailable SanjuLuke MD Unavailable Unavailable Glen AubreyLuke MD Unavailable Unavailable Glen AubreyLuke MD Unavailable Unavailable Glen AubreyLuke MD Unavailable Unavailable SanjuLuke MD Unavailable Unavailable SanjuLuke MD Unavailable Unavailable Glen AubreyLuke MD Unavailable Unavailable SanjuLuke MD Unavailable Unavailable SanjuLuke MD Unavailable Unavailable SanjuLuke MD Unavailable Unavailable SanjuLuke MD Unavailable Unavailable SanjuLuke MD Unavailable Unavailable SanjuLuke perdomo MD Unavailable Unavailable Glen AubreyLuke MD Unavailable Unavailable Glen AubreyLuke MD Unavailable Unavailable SanjuLuke MD Unavailable Unavailable SanjuLuke MD Unavailable Unavailable Glen AubreyLuke MD Unavailable Unavailable Glen AubreyLuke MD Unavailable Unavailable Glen AubreyLuke MD Unavailable Unavailable Glen AubreyLkue MD Unavailable Unavailable SanjuLuke MD Unavailable Unavailable Glen AubreyLuke MD Unavailable Unavailable Glen AubreyLuke MD Unavailable Unavailable SanjuLuke MD Unavailable Unavailable SanjuLuke MD Unavailable Unavailable Glen AubreyLuke MD Unavailable Unavailable Glen AubreyLuke MD Unavailable Unavailable Glen AubreyLuke MD Unavailable Unavailable SanjuLuke MD Unavailable Unavailable Glen AubreyLuke MD Unavailable Unavailable SanjuLuke MD Unavailable Unavailable SanjuLuke perdomo MD Unavailable Unavailable Glen AubreyLuke perdomo MD Unavailable Unavailable Glen AubreyLuke perdomo MD Unavailable Unavailable SanjuLuke perdomo MD [...] is protected by Article 27-F of the [facility] Public Health law. If you continue you may have access to information: Regarding HIV / AIDS; Provided by facilities licensed or operated by the [facility] Office of Mental Health; or Provided by the [facility] Office for People With Developmental Disabilities. If such information is present, then the following [facility] mandated warning applies: This information has been [...] law may result in a fine or detention sentence or both. A general authorization for [...] Malik 0 05/03/2021 02:45:00 PM EDT [facility] ([facility] ) Emergency Attender: JACKIE TELLES MDConsultant: PCP NO 03/05/2021 03:55:00 PM EDT - 03/05/2021 06:11:00 PM EDT [facility] Patient discharged. Outpatient Attender: JOON Malik 0 02/20/2021 01:40:00 PM EDT [facility] ([facility] ) Outpatient Attender: Andrew Malik 0 12/31/2020 11:40:00 AM EDT [facility] ([facility] ) Outpatient Attender: Andrew Malik 0 09/24/2020 09:40:00 AM EST [facility] ([facility] ) Outpatient Attender: Lorenza Malik 09/11 10:00:00 AM EST [facility] ([facility] ) Outpatient Attender: Andrew Malik 0 08/30/2020 08:20:00 AM EST [facility] ([facility] ) Outpatient Attender: Andrew Malik 0 05/22/2020 10:00:00 AM EDT [facility] ([facility] ) <td ID="encounterTypeDescriptionID0">1 Y ear Follow-Up</td><td>Afshin Sosa DO</td><td>Inderjit Valentine MD [facility]</td><td>05/09/2020</td><td>12:17PM</td><td>1:37PM</td><td><content ID="encounterDiagnosisID0-0">Dry Eye Syndrome</content>, <content ID="encounterDiagnosisID0-1">Pseudophakia</content>, <content ID="encounterDiagnosisID0-2">Assessment of Taking Medication For Diabetes Long- term Use of Insulin</content>, <content ID="encounterDiagnosisID0-3">Vitreous Disorders Degeneration</content>, <content ID="encounterDiagnosisID0-4">Diabetes Mellitus Type 2 Without Complication</content></td>Outpatient Attender: AFSHIN Haley MD [facility] 05/09/2020 12:17:00 PM EDT - 05/09/2020 01:37:00 PM EDT Diabetes Mellitus Type 2 Without Complic ationVitreous Disorders DegenerationAssessment of Taking Medication For Diabetes Long-term Use of InsulinPseudophakiaDry Eye SyndromeDiabetes Mellitus Type 2 Without Complication Vitreous Disorders DegenerationAssessment of Taking Medication For Diabetes Long-term Use of InsulinPseudophakiaDry Eye Syndrome STEPHANIE (Inderjit Interiano MD [facility]) Diabetes Mellitus Type 2 Without Complic ation [...] Complete: YESThis Data wa s Submitted to [facility]. COVID-19 VACCINE Moderna 10/26/2020 12:00:00 AM EST completed NYSIIS Vaccine Series Complete: NOThis Data was Submitted to [facility] [facility]. Influenza, injectable, MDCK, preservative free, radha valent 05/22/2020 10:58:00 AM EDT completed [facility] Medications Medication Brand Name Start [...] 02/20/2021 12:00:00 AM EDT ORAL completed [facility] ([facility]) 45 mcg/actuation 01/26/2021 12:00:00 AM EDT [...] Vaccine 05/22/2020 12:00:00 AM EDT completed [facility]) Medication administered onsite 5-325 mg 05/22/2020 12:00:00 [...] mcg/dose 09/15/2019 12:00:00 AM EST blister with veean ce 60 INHALE ONE PUFF BY MOUTH [...] type / Coverage type Policy ID Covered republican ID Covered republican's relationship to barboza Policy Barboza Plan Information [employer] Commercial Advantage Plus [id number] Self Advantage Plus [id number] [employer] Commercial [id number] Self [id number] [employer] Commercial [id number] Self [id number] [employer] Commercial [id number] Self [id number] [employer] Commercial [id number] Self [id number] [employer] [id number] SP [id number] WELLCARE [id number] SP [id number] [place] [id number] [place] [id number] Wellcare/Todays Optmcr Commercial [id number] Self [id number] WELL[employer]ARE MEDICARE [id number] [place] 06 [id number] [employer] OPTIONS/[place]ESE O [id number] S [id number] WELLCARE O [id number] S [id number] WELLCARE -O/P [id number] 18 [id number] MEDICARE [id number] SP [id number] Problems, Conditions, and Diagnoses Code Display Name Description Problem Type Effective Dates Data Source(s) Z794 USP (current) use of insulin USP (cu rrent) use of insulin Diagnosis 03/05/2021 03:55:00 PM EDT [facility] E119 Type 2 diabetes mellitus without complic ations Type 2 diabetes mellitus without complications Diagnosis 03/05/2021 03:55:00 PM EDT [facility] I10 Essential (primary) hypertension Essential (primary) h ypertension Diagnosis 03/05/2021 03:55:00 PM EDT [facility] R531 Weakness Weakness Diagnosis 03/05/2021 03:55:00 PM ED T [facility] Surgeries/Procedures Procedure Description Date Indications Data Source(s) OFFICE OUTPATIENT VISIT 25 MINUTES 05/03/2021 12:00:00 AM EDT [facility] ([facility]) Trans Care SRV W/I 14D Of DC, Comm W/I 2 Dys Med Rec 02/20/2021 12:00:00 AM EDT [facility] ([facility] ) Chronic Care MGMT 20 Mins Clinical Staff Time Per Calendar M ont 01/08/2021 12:00:00 AM EDT [facility] ([facility] ) OFFICE OUTPATIENT VISIT 25 MINUTES 12/31/2020 12:00:00 AM EDT [facility] ([facility]) Chronic Care MGMT 20 Mins Clinical Staff Time Per Calendar [facility] 12/04/2020 12:00:00 AM EDT [facility] ([facility] ) Chronic Care MGMT 20 Mins Clinical Staff Time Per Calendar M [facility] 11/09/2020 12:00:00 AM EDT [facility] ([facility] ) Chronic Care Management Services Ea Addl 20 Min 2020 12:00:00 AM EST [facility] ([facility]) Chronic Care MGMT 20 Mins Clinical Staff Time Per Calendar M [facility] 10/01/2020 12:00:00 AM EST [facility] ([facility] ) OFFICE OUTPATIENT VISIT 25 MINUTES 09/24/2020 12:00:00 AM EST [facility] ([facility]) Impacted Cerumen Irrigat/Lavage 09/11/2020 12:00:00 AM EST [facility] ([facility]) OFFICE OUTPATIENT VISIT 15 MINUTES 09/11/2020 12:00:00 AM EST [facility] ([facility]) Trans Care SRV W/I 14D Of DC, Comm W/I 2 Dys Med Rec 08/30/2020 12:00:00 AM EST [facility] ([facility] ) Diabetic Retinal Eye Exam 05/09/2020 12:00:00 AM EDT [facility] ([facility]) Intermediate Eye Exam Established Patient Intermediate Eye Exam Established Patient 05/09/2020 12:00:00 AM EDT STEPHANIE (Miguel Interiano MD [facility]) Intermediate Eye Exam Established Patient Intermediate Eye Exam Established Patient 05/09/2020 12:00:00 AM EDT STEPHANIE (Miguel Interiano MD [facility]) Results ID Date Data Source [id number] 05/06/2021 08:00:00 AM EDT [facility] ([facility]) Name Value Range Interpretation Code Description Data Aura rce(s) Supporting Document(s) Microalbumin Urine 83.9 mg/L 1.3-20.0 [facility] ([facility]) Urine Creatinine 78.3 mg/dL 30.0-125.0 [facility] ([facility]) Microalb/Creat Ratio 107.2 ug/mg 0.0-30.0 [facility] ([facility]) ID Date Data Source [id number] 05/03/2021 02:31:00 PM EDT [facility] ([facility]) Name Value Range Interpretation Code Description Data Aura rce(s) Supporting Document(s) Glucose [Mass/volume] in Serum or Plasma 167 mg/dL 74-99 [facility] ([facility]) 100-125 mg/dL PRE-DIABETES/FASTING >126 mg/dL DIABETES/FASTING Urea nitrogen [Mass/volume] in Serum or Plasma 24 mg/dL 7-18 [facility] ([facility]) Creatinine 1.0 mg/dL 0.6-1.3 [facility] Sodium [Moles/volume] in Serum or Plasma 142 meq/L 136-145 [facility] ([facility]) Potassium [Moles/volume] in Serum or Plasma 4.1 meq/L 3.5-5.1 [facility] ([facility]) Chloride [Moles/volume] in Serum or Plasma 106 meq/L 98-107 [facility] ([facility]) Carbon dioxide, total [Moles/volume] in Serum or Plasma 26 meq/L 21 -32 [facility] ([facility]) Alkaline phosphatase isoenzyme [Units/volume] in Serum or Pl asma 134 mg/dL 46-116 [facility] ([facility]) Calcium [Mass/volume] in Serum or Plasma 9.1 mg/dL 8.5-10.1 [facility] ([facility]) Aspartate aminotransferase [Enzymatic activity/volume] in Serum or Plasma 33 U/L 15-37 [facility] ([facility] ) Alanine aminotransferase [Enzymatic activity/volume] in Seru m or Plasma 27 U/L 12-78 [facility] ([facility]) Total Bilirubin 0.7 mg/dL 0.2-1.0 [facility] ([facility]) A/G Ratio 0.76 CALC 1.00-1.90 [facility] Proteinase 3 Ab [Units/volume] in Serum 8.8 g/dL 6.4-8.2 [facility] Albumin [Mass/volume] in Serum or Plasma 3.8 g/dL 3.4-5.0 [facility] ([facility]) Glomerular filtration rate/1.73 sq M pre dicted among blacks [Volume Rate/Area] in Serum or Plasma by Creatinine-based formula (MDRD) Laboratory test result [facility] <content>CHRONIC KIDNEY DISEASE STAGING PER NKF</content>
<content></content>
<content>STAGE I & II GFR >= 60 NORMAL TO MILDLY DECREASED</content>
<content>STAGE III GFR 30-59 MODERATELY DECREASED</content>
<content>STAGE IV GFR 15-29 SEVERELY DECREASED</content>
<content>STAGE V GFR <15 VERY LITTLE GFR LEFT</content>
<content>ESRD GFR <15 ON SENIOR QUALITY ASSURANCE SPECIALIST</content>
<content></content> Glomerular filtration rate/1.73 sq M pre dicted among non-blacks [Volume Rate/Area] in Serum or Plasma by Creatinine-based formula (MDRD) 53 mL/min [facility] ID Date Data Source [id number] 05/03/2021 02:31:00 PM EDT [facility] Name Value Range Interpretation Code Description Data Aura rce(s) Supporting Document(s) Hemoglobin A1c/Hemoglobin.total in Blood 8.0 % [facility] Lab Result Notes: Pre-Diabetes 5.7 - 6.4 % Diabetes = or > 6.5% Glucose mean value [Mass/volume] in Blood Estimated fr om glycated hemoglobin 183 mg/dL 60-110 [facility] ID Date Data Source [id number] 05/03/2021 02:31:00 PM EDT [facility] Name Value Range Interpretation Code Description Data Aura rce(s) Supporting Document(s) Leukocytes [#/volume] in Blood by Automated count 9.1 x10*3/UL 4.1-10 .9 [facility] ([facility]) Hemoglobin [Mass/volume] in Blood 9.4 g/dL 12.0-18.0 [facility] ([facility]) NOTE: RESULT VERIFIED. Erythrocytes [#/volume] in Blood by Automated count 3.32 x10*6/UL 4.2 0-6.30 [facility] Hematocrit [Volume Fraction] of Blood by Automated count 29.0 % 3 7.0-51.0 [facility] ([facility]) MCV 87.4 fL 80.0-97.0 [facility]) Erythrocyte distribution width [Ratio] by Automated count 15.0 % 11.6-13.7 [facility] ([facility]) MCHC 32.5 g/dL 31.0-38.0 [facility]) MCH 28.4 pg 26.0-32.0 [facility]) Lymph % 28.2 % 10.0-58.5 [facility]) MPV 8.5 FL 7.8-11.0 [facility] ([facility]) Platelets [#/volume] in Blood by Automated count 309 x10*3/UL 140-440 [facility] ([facility]) Neut % 65.0 % 37.0-92.0 [facility] ([facility]) Lymph # 2.5 x10*3/UL 0.6-4.1 [facility] ([facility]) Mid % 6.8 % 1.7-9.3 [facility]) Mid # 0.7 x10*3/UL 0.1-0.6 [facility] ([facility]) Neut # 5.9 x10*3/UL 2.0-7.8 [facility] ([facility]) ID Date Data Source [id number] 05/03/2021 02:31:00 PM EDT [facility] ([facility]) Name Value Range Interpretation Code Description Data Aura rce(s) Supporting Document(s) Hemoglobin A1c/Hemoglobin.total in Blood Laboratory [facility] ID Date Data Source [id number] 04/19/2021 10:54:00 AM EDT [facility] ([facility]) Name Value Range Interpretation Code Description Data Aura rce(s) Supporting Document(s) Ferritin [Mass/volume] in Serum or Plasma 38 ng/mL 8-252 [facility] ID Date Data Source [id number] 04/19/2021 10:54:00 AM EDT [facility] Name Value Range Interpretation Code Description Data Aura rce(s) Supporting Document(s) Iron (Fe) 49 ug/dL 50-170 [facility] Percent Saturation 13.2 % 13.2-45.0 [facility] Total Iron Binding Capacity 371 ug/dL 250-450 [facility] ([facility]) ID Date Data Source [id number] 04/19/2021 10:53:00 AM EDT [facility] Name Value Range Interpretation Code Description Data Aura rce(s) Supporting Document(s) Hemoglobin [Mass/volume] in Blood 9.9 g/dL 12.0-18.0 [facility] ([facility]) Leukocytes [#/volume] in Blood by Automated count 9.4 x10*3/UL 4.1-10 .9 [facility] ([facility]) NOTE: CBC VERIFIED Erythrocytes [#/volume] in Blood by Automated count 3.49 x10*6/UL 4.2 0-6.30 [facility] ([facility]) Hematocrit [Volume Fraction] of Blood by Automated count 30.3 % 3 7.0-51.0 [facility] MCV 86.9 fL 80.0-97.0 [facility]) MCH 28.6 pg 26.0-32.0 [facility] Erythrocyte distribution width [Ratio] by Automated count 14.8 % 11.6-13.7 [facility] ([facility]) MCHC 32.9 g/dL 31.0-38.0 [facility] ([facility]) Platelets [#/volume] in Blood by Automated count 313 x10*3/UL 140-440 [facility] ([facility]) MPV 8.7 FL 7.8-11.0 [facility] Lymph % 21.0 % 10.0-58.5 [facility]) Mid % 6.0 % 1.7-9.3 [facility] Neut % 73.0 % 37.0-92.0 [facility] ([facility]) Lymph # 1.9 x10*3/UL 0.6-4.1 [facility] ([facility]) Mid # 0.6 x10*3/UL 0.1-0.6 [facility] ([facility]) Neut # 6.9 x10*3/UL 2.0-7.8 [facility] ([facility]) ID Date Data Source [id number] 2021 10:14:00 AM EDT [facility] ([facility]) Name Value Range Interpretation Code Description Data Aura rce(s) Supporting Document(s) Hemoglobin [Mass/volume] in Blood 9.6 g/dL 12.0-18.0 [facility] ([facility]) Leukocytes [#/volume] in Blood by Automated count 9.7 x10*3/UL 4.1-10 .9 [facility] ([facility]) NOTE: CBC VERIFIED Erythrocytes [#/volume] in Blood by Automated count 3.27 x10*6/UL 4.2 0-6.30 [facility] ([facility]) MCH 29.3 pg 26.0-32.0 [facility]) Hematocrit [Volume Fraction] of Blood by Automated count 28.4 % 3 7.0-51.0 [facility] ([facility]) MCV 86.9 fL 80.0-97.0 [facility]) Erythrocyte distribution width [Ratio] by Automated count 14.8 % 11.6-13.7 [facility] ([facility]) MCHC 33.7 g/dL 31.0-38.0 [facility]) Platelets [#/volume] in Blood by Automated count 351 x10*3/UL 140-440 [facility] ([facility]) Lymph % 21.2 % 10.0-58.5 [facility] MPV 8.5 FL 7.8-11.0 [facility] ([facility] [facility]) Mid % 6.4 % 1.7-9.3 [facility] Lymph # 2.0 x10*3/UL 0.6-4.1 [facility] ([facility]) Mid # 0.7 x10*3/UL 0.1-0.6 [facility] ([facility]) Neut % 72.4 % 37.0-92.0 [facility] ([facility]) Neut # 7.0 x10*3/UL 2.0-7.8 [facility] ([facility]) ID Date Data Source [id number] 2021 10:14:00 AM EDT [facility] ([facility]) Name Value Range Interpretation Code Description Data Aura rce(s) Supporting Document(s) Glucose [Mass/volume] in Serum or Plasma 92 mg/dL 74-99 [facility] ([facility]) 100-125 mg/dL PRE-DIABETES/FASTING >126 mg/dL DIABETES/FASTING Urea nitrogen [Mass/volume] in Serum or Plasma 20 mg/dL 7-18 [facility] ([facility]) Creatinine 1.0 mg/dL 0.6-1.3 [facility] ([facility]) Sodium [Moles/volume] in Serum or Plasma 140 meq/L 136-145 [facility] ([facility]) Potassium [Moles/volume] in Serum or Plasma 4.2 meq/L 3.5-5.1 [facility] ([facility]) Chloride [Moles/volume] in Serum or Plasma 105 meq/L 98-107 [facility] ([facility]) Calcium [Mass/volume] in Serum or Plasma 9.6 mg/dL 8.5-10.1 [facility] ([facility]) Carbon dioxide, total [Moles/volume] in Serum or Plasma 27 meq/L 21 -32 [facility] ([facility]) Alkaline phosphatase isoenzyme [Units/volume] in Serum or Pl asma 132 mg/dL 46-116 [facility] ([facility]) Total Bilirubin 0.4 mg/dL 0.2-1.0 [facility] ([facility]) Aspartate aminotransferase [Enzymatic activity/volume] in Serum or Plasma 17 U/L 15-37 [facility] ([facility] ) Alanine aminotransferase [Enzymatic activity/volume] in Seru m or Plasma 23 U/L 12-78 [facility] ([facility]) Albumin [Mass/volume] in Serum or Plasma 3.5 g/dL 3.4-5.0 [facility] ([facility]) Proteinase 3 Ab [Units/volume] in Serum 7.8 g/dL 6.4-8.2 [facility] ([facility]) A/G Ratio 0.81 CALC 1.00-1.90 [facility] Glomerular filtration rate/1.73 sq M pre dicted among blacks [Volume Rate/Area] in Serum or Plasma by Creatinine-based formula (MDRD) Laboratory test result [facility] <content>CHRONIC KIDNEY DISEASE STAGING PER NKF</content>
<content></content>
<content>STAGE I & II GFR >= 60 NORMAL TO MILDLY DECREASED</content>
<content>STAGE III GFR 30-59 MODERATELY DECREASED</content>
<content>STAGE IV GFR 15-29 SEVERELY DECREASED</content>
<content>STAGE V GFR <15 VERY LITTLE GFR LEFT</content>
<content>ESRD GFR <15 ON SENIOR QUALITY ASSURANCE SPECIALIST</content>
<content></content> Glomerular filtration rate/1.73 sq M pre dicted among non-blacks [Volume Rate/Area] in Serum or Plasma by Creatinine-based formula (MDRD) 53 mL/min [facility] ID Date Data Source [id number] 2021 10:14:00 AM EDT [facility] ([facility]) Name Value Range Interpretation Code Description Data Aura rce(s) Supporting Document(s) Hemoglobin A1c/Hemoglobin.total in Blood 7.9 % [facility] ([facility]) Lab Result Notes: Pre-Diabetes 5.7 - 6.4 % Diabetes = or > 6.5% Glucose mean value [Mass/volume] in Blood Estimated fr om glycated hemoglobin 180 mg/dL 60-110 [facility] ([facility] ) ID Date Data Source [id number] 2021 10:14:00 AM EDT [facility] ([facility]) Name Value Range Interpretation Code Description Data Aura rce(s) Supporting Document(s) Hemoglobin A1c/Hemoglobin.total in Blood Laboratory test result [facility] ([facility]) ID Date Data Source [id number] 03/26/2021 01:32:00 PM EDT [facility] ([facility]) Name Value Range Interpretation Code Description Data Aura rce(s) Supporting Document(s) Laboratory test finding (navigational concept) 31.0 % 38.0-51.0 [facility] ([facility]) Laboratory test finding (navigational concept) 4.4 meq/L 3.5-5.1 [facility] ([facility]) Laboratory test finding (navigational concept) 141 meq/L 136-145 [facility] ([facility]) Laboratory test finding (navigational concept) 244 mg/dL 70-105 [facility] ([facility]) Laboratory test finding (navigational concept) 4.8 mg/dL 4.5-5.3 [facility] ([facility]) Laboratory test finding (navigational concept) 103 meq/L 98-109 [facility] ([facility]) Laboratory test finding (navigational concept) 26.0 MM/L 23.0-27.0 [facility] ([facility]) Laboratory test finding (navigational concept) 0.7 mg/dL 0.6-1.3 [facility] ([facility]) Laboratory test finding (navigational concept) 18 mg/dL 8-26 [facility] ([facility]) ID Date Data Source [id number] 03/05/2021 03:55:00 PM EDT [facility] 1 Medication Reconciliation Report [facility] Emergency Department [address] [place] [address] Phone #: ext- [phone] 03/05/2021 15:55 Patient: [...] rce(s) Supporting Document(s) ID Date Data Source [id number] 03/05/2021 03:55:00 PM EDT [facility] 1 Medication Administration Record [facility] Emergency Department [address] [place] [address] Phone #: ext- [phone] 03/05/2021 15:55 Patient: JAJA WEBB Sex: F : 1940 Age: 80yWeight: 62.5 kgHeight/Length: 60 inBMI: 26.9ALLERGIES: Codeine Phosphate, AspirinDate/Time Medication Administered Medication Ordered Name Value Range Interpretation Code Description Data Aura rce(s) Supporting Document(s) ID Date Data Source [id number] 03/05/2021 03:55:00 PM EDT [facility] 1 General Instructions [facility] Emergency Department [address] [place] [address] Phone #: ext- [phone] 03/05/2021 15:55 Patient: [...] as instructed below.Home care 2 General Instructions [facility] Emergency Department [address] [place] [address] Phone #: ext- [phone] 03/05 15:55 Patient: JAJA WEBB Sex: F [...] red color) Loss of consciousness Severe headache [id number] [employer]. [address] [place] [id number]. All rights reserved. This information is not intended as asubstitute for professional medical care. Always follow your healthcare professional's instructions. You have been given the following additional information: Weakness (Uncertain Cause) 3 General Instructions [facility] Emergency Department [address] [place] [address] Phone #: ext [phone] 03/05/2021 15:55 Patient: JAJA WEBB Sex: F : 1940 Age: 80y(Electronically signed by Jackie Telles MD 03/11/2021 19:38) Name Value Range Interpretation Code Description Data Aura rce(s) Supporting Document(s) ID Date Data Source [id number] 03/05/2021 03:55:00 PM EDT [facility] 1 Clinical Report - Nurses [facility] Emergency Department [address] [place] [address] Phone #: ext [phone] 03/05/2021 15:55 Patient: [...] notification of patient arrival was received. Treatment CORE SHAPER: None. SEPSIS SCREEN: SIRS SCREEN NEGATIVE. SEPSIS [...] Arevalo R.N. 2 Clinical Report - Nurses [facility] Emergency Department [address] [place] [address] Phone #: ext- [phone] 03/05/2021 15:55 Patient: JAJA WEBB [facility]#: [id number] Sex: F : 1940 Age: 80yGabapentin Oral [...] --16:02 03/05/21 Radha Andre R.N.ADDITIONAL SURGERIES:no known surgeries.[id number] 03/05/21.SOCIAL HX: No alcohol use or drug [...] Verbalizes understanding. 3 Clinical Report - Nurses [facility] Emergency Department [address] [place] [address] Phone #: ext- [phone] 03/05/2021 15:55 [id number] Sex: [facility] : 1940 Age: 80y FUNCTIONAL [...] F. Pain level now 0/10. --17:21 03/05/21 Kenyon cad engineer, Sebastián, ER Tech1 17:21 03/05/21. Condition at departure: improved and stable. No learning barriers present. Discharge instructions provided and reviewed with the patient. Patient verbalized understanding. Written instructions provided in Belgian. The patient was discharged by the physician. She was discharged home. She left ambulatory and via ambulance. ( Pt waiting on ambulance for ride home.). --17:40 03/05/21 Josefina Arevalo R.N. 4 Clinical Report - Nurses [facility] Emergency Department [address] [place] [address] Phone #: ext- [phone] 03/05/2021 15:55 Patient: JAJA WEBB Sex: F : 1940 Age: 80y ( [place] ambulance service arrives to give patient ride home. Belongings taken with patient, patient alert, stable and smiling at time of leaving dept.). --18:10 03/05/21 Radha Andre R.N.Locked/Released at 03/05/2021 18:11 by Radha Andre R.N. Name Value Range Interpretation Code Description Data Aura rce(s) Supporting Document(s) ID Date Data Source [id number] 03/05/2021 03:55:00 PM EDT [facility] 1 Clinical Report - Physicians/Mid Levels [facility] Emergency Department [address] [place] [address] Phone #: ext [phone] 03/05/2021 15:55 Patient: JAJA WEBB Sex: F [...] daily. 2 Clinical Report - Physicians/Mid Levels [facility] Emergency Department [address] [place] [address] Phone #: [phone] ext- [phone] 03/05/2021 15:55 Patient: JAJA WEBB Sex: F [...] weakness. 3 Clinical Report - Physicians/Mid Levels [facility] Emergency Department [address] [place] [address] Phone #: ext- [phone] 03/05/2021 15:55 Patient: JAJA WEBB Sex: F [...] Name Value Range Interpretation Code Description Data [facility] Document(s) ID Date Data Source [id number] 02/05/2021 03:08:00 PM EDT [facility]) Name Value Range Interpretation Code Description Data [facility] Supporting Document(s) Venous PH 7.324 units 7.330-7.430 [facility] ([facility]) Venous Partial Pressure Co2 47.1 mmHg 38.0-50.0 [facility] ([facility]) Venous Partial Pressure O2 40.3 mmHg 30.0-50.0 [facility] ([facility]) Venous Total Co2 25.4 meq/L 24.0-28.0 [facility] ([facility]) Venous Hco3 23.9 meq/L 23.0-27.0 [facility] ([facility]) Venous Base Excess -2.3 [facility] ([facility]) Venous Standard Hco3 22.0 meq/L [facility] ( [facility] Venous O2 Saturation 71.9 % 60.0-80.0 [facility] ID Date Data Source [id number] 02/05/2021 03:08:00 PM EDT [facility] ([facility]) Name Value Range Interpretation Code Description Data Aura rce(s) Supporting Document(s) Ammonia [Mass/volume] in Blood 13 uMOL/L [facility] ID Date Data Source [id number] 02/05/2021 02:43:00 PM EDT [facility] ([facility]) Name Value Range Interpretation Code Description Data Aura rce(s) Supporting Document(s) Influenza A Amplification Laboratory test result [facility] ([facility]) Negative results do not preclude influen za or RSV virus infection and should not be used as the sole basis for treatment or other patient management decisions. Influenza B Amplification Laboratory test result [facility] Negative results do not preclude influen za or RSV virus infection and should not be used as the sole basis for treatment or other patient management decisions. RSV Amplification Laboratory test result [facility] ([facility]) Negative results do not preclude influen za or RSV virus infection and should not be used as the sole basis for treatment or other patient management decisions. Laboratory test finding (navigational concept) Laboratory test result [facility] A false negative result may [...] pathogens. DISCLAIMER: Testing was performed using the [employer] SARS-CoV-2 test. This test was developed and its performance characteristics determined by [employer]. This test has not been FDA cleared [...] or revoked sooner. ID Date Data Source [id number] 02/05/2021 02:43:00 PM EDT [facility] Name Value Range Interpretation Code Description Data Uara rce(s) Supporting Document(s) SARS coronavirus 2 RNA [Presence] in Res piratory specimen by ARLETTE with probe detection NEGATIVE [facility] This lab was ordered by [facility] a nd reported by [facility]. ID Date Data Source [id number] 02/05/2021 11:13:00 AM EDT [facility] ([facility]) Name Value Range Interpretation Code Description Data Aura rce(s) Supporting Document(s) Bedside Glucose 274 mg/dL 83-110 [facility] ([facility]) ID Date Data Source [id number] 02/05/2021 10:59:00 AM EDT [facility] ([facility]) Name Value Range Interpretation Code Description Data Aura rce(s) Supporting Document(s) Lactate [Mass/volume] in Serum or Plasma 1.5 mmol/L 0.4-2.0 [facility] ([facility]) Y/N query for Sepsis Lactate Rule: Y ID Date Data Source [id number] 02/05/2021 10:33:00 AM EDT [facility] ([facility]) Name Value Range Interpretation Code Description Data Aura rce(s) Supporting Document(s) White Blood Count 11.5 10 4.0-10.0 [facility] ([facility]) Red Blood Count 4.05 10 4.00-5.40 [facility] ([facility]) Hemoglobin 11.5 g/dL 12.0-15.5 [facility] Hematocrit 37.4 % 36.0-47.0 [facility] Mean Corpuscular Hemoglobin 28.4 pg 27.0-33.0 [facility] ([facility]) Mean Corpuscular Volume 92.3 fl 80.0-96.0 [facility] ([facility]) Mean Corpuscular HGB Conc 30.7 g/dL 32.0-36.5 [facility] ([facility]) Red Cell Distribution Width 16.5 % 11.5-14.5 [facility] ([facility]) Platelet Count, Automated 298 10 150-450 [facility] ([facility]) Neutrophils % 66.2 % 36.0-66.0 [facility] ([facility]) Pleasants % 11.8 % 2.0-8.0 [facility]) Lymph % 20.2 % 24.0-44.0 [facility] [facility] Baso % 0.8 % 0.0-1.0 [facility]) Eos % 0.6 % 0.0-3.0 [facility] Neutrophils # 7.6 10 1.5-8.5 [facility] ([facility]) Immature Granulocyte % 0.4 % 0-3.0 [facility] ([facility]) Nucleated Red Blood Cell % 0.0 % 0-0 [facility] ([facility]) Pleasants # 1.4 10 0.0-0.8 [facility]) Eos # 0.1 10 0.0-0.5 [facility] Lymph # 2.3 10 1.5-5.0 [facility] Baso # 0.1 10 0.0-0.2 [facility] [facility] ID Date Data Source [id number] 02/05/2021 10:33:00 AM EDT [facility] ([facility]) Name Value Range Interpretation Code Description Data Aura rce(s) Supporting Document(s) CK-MB Value Mass 1.9 ng/mL [facility] ([facility]) MB/CK Relative Index 1.31 [facility] ([facility]) <content>DIAGNOSIS CRITERIA</content>
<content>MMB ng/ml Relative Index (RI)</content>
<content>NON-AMI < or = 5 N/A</content>
<content>OSULLIVAN ZONE > 5 < or = 4</content>
<content>AMI > 5 > 4</content>
<content></content> CPK Creatine Phosphokinase 145 U/L 26-192 [facility] ([facility]) Troponin I Laboratory test result [facility] <content>Troponin I Reference Interval f or Siemens [place] LOCI:</content>
<content></content>
<content>99th Percentile= 0.00-0.045 ng/ml</content>
<content></content>
<content>Risk Stratification:</content>
<content><= 0.10 ng/ml Decreased Risk for Adverse Clinical</content>
<content>Events.</content>
<content>0.10-1.50 ng/ml Increased Risk for Adverse Clinical</content>
<content>Events. Evaluation of additional</content>
<content>criterion and/or repeat testing in 2-6</content>
<content>hours is suggested to rule out myocardial</content>
<content>damage.</content>
<content>>= 1.50 ng/ml Indicative of Myocardial Injury.</content>
<content></content> ID Date Data Source [id number] 02/05/2021 10:33:00 AM EDT [facility] ([facility]) Name Value Range Interpretation Code Description Data Aura rce(s) Supporting Document(s) Alt/SGPT 24 U/L 12-78 [facility] ([place] [facility]) Alkaline Phosphatase 148 U/L 45-117 [facility] ([facility]) Ast/Sgot 21 U/L 7-37 [facility] ([facility]) Bilirubin,Direct 0.2 mg/dL 0.0-0.2 [facility] ([facility]) Bilirubin,Total 0.8 mg/dL 0.2-1.0 [facility] ([facility]) Total Protein 8.9 GM/DL 6.4-8.2 [facility] ([facility]) Albumin/Globulin Ratio 0.8 1.2-2.2 [facility] ([facility]) Albumin 3.9 GM/DL 3.2-5.2 [facility] ([facility] ID Date Data Source [id number] 02/05/2021 10:33:00 AM EDT [facility] ([facility]) Name Value Range Interpretation Code Description Data Aura rce(s) Supporting Document(s) Blood Urea Nitrogen 22 mg/dL 7-18 [facility] ([facility]) Creatinine For GFR 0.90 mg/dL 0.55-1.30 [facility] ([facility]) Glucose, Fasting 269 mg/dL 70-100 [facility] ([facility]) Potassium Serum 4.6 meq/L 3.5-5.1 [facility] ([facility]) Sodium Level 134 meq/L 136-145 [facility] ([facility]) Glomerular Filtration Rate Laboratory test result [facility] ([facility]) <content>Units are mL/min/1.73 m2</content>
<content></content>
<content>Chronic Kidney Disease Staging per NKF:</content>
<content></content>
<content>Stage I & II GFR >=60 Normal to Mildly Decreased</content>
<content>Stage III GFR 30- 59 Moderately Decreased</content>
<content>Stage IV GFR 15-29 Severely Decreased</content>
<content>Stage V GFR <15 Very Little GFR Left</content>
<content>ESRD GFR <15 on SENIOR QUALITY ASSURANCE SPECIALIST</content>
<content></content> Carbon Dioxide Level 23 meq/L 21-32 [facility] Anion Gap 8 meq/L 8-16 [facility] [facility]) Chloride Level 103 meq/L 98-107 [facility] ([facility]) Calcium Level 9.8 mg/dL 8.8-10.2 [facility] ID Date Data Source [id number] 02/05/2021 10:33:00 AM EDT [facility] Name Value Range Interpretation Code Description Data Aura rce(s) Supporting Document(s) Thyrotropin [Units/volume] in Serum or Plasma by Detec tion limit <= 0.05 mIU/L 2.130 uIU/ML 0.358-3.740 [facility] ([facility] ) ID Date Data Source [id number] 02/05/2021 10:33:00 AM EDT [facility] Name Value Range Interpretation Code Description Data Aura rce(s) Supporting Document(s) Appearance, Urine RFX Laboratory test result [facility] ([facility]) Color, Urine RFX Laboratory test [facility]) Specific [place] Ur Auto RFX 1.014 1.002-1.035 [facility] PH,Urine RFX 5.0 units 5.0-9.0 [facility] ([facility]) Protein, Urine Auto RFX Laboratory test result [facility] ([facility]) Glucose, Urine (Ua) Auto RFX Laboratory test result [facility] ([facility]) Urobilinogen, Urine Auto RFX 0.2 mg/dL 0.0-2.0 [facility] Bilirubin, Urine Auto RFX Laboratory test result [facility] Ketone, Urine Auto RFX Laboratory test result [facility] Leukocyte Esterase Ur Auto RFX Laboratory test result [facility] Nitrite, Urine Auto RFX Laboratory test result [facility] Blood, Urine Blood RFX Laboratory test result [facility] WBC, Urine Auto RFX Laboratory test result 0-3 [facility] Bacteria, Urine Auto RFX Laboratory test result [facility] RBC, Urine Auto RFX 71 /HPF 0-3 [facility] Yeast Like Cell Urine Auto RFX Laboratory test result [facility] ([facility]) Squam Epithelial Cell Ur Aurfx 3 /HPF 0-6 [facility] ([facility]) Hyaline Cast, Urine Auto RFX 0 /LPF 0-1 [facility] ([facility]) ID Date Data Source [id number] 01/02/2021 01:52:00 PM EDT [facility] ([facility]) Name Value Range Interpretation Code Description Data Aura rce(s) Supporting Document(s) Microalbumin Urine 281.2 mg/L 1.3-20.0 [facility] ([facility]) NOTE: diluted and verified Urine Creatinine 265.8 mg/dL 30.0-125.0 [facility] ([facility]) Microalb/Creat Ratio 105.8 ug/mg 0.0-30.0 [facility] ([facility]) ID Date Data Source [id number] 12/31/2020 12:09:00 PM EDT [facility] Name Value Range Interpretation Code Description Data Aura rce(s) Supporting Document(s) Total Iron Binding Capacity 392 ug/dL 250-450 [facility] ([facility]) Iron (Fe) 40 ug/dL 50-170 [facility]) Percent Saturation 10.2 % 13.2-45.0 [facility] ([facility]) ID Date Data Source [id number] 12/31/2020 12:08:00 PM EDT [facility] Name Value Range Interpretation Code Description Data Aura rce(s) Supporting Document(s) Urea nitrogen [Mass/volume] in Serum or Plasma 30 mg/dL 7-18 [facility] ([facility]) Glucose [Mass/volume] in Serum or Plasma 119 mg/dL 74-99 [facility] ([facility]) 100-125 mg/dL PRE-DIABETES/FASTING >126 mg/dL DIABETES/FASTING Sodium [Moles/volume] in Serum or Plasma 143 meq/L 136-145 [facility] ([facility]) Potassium [Moles/volume] in Serum or Plasma 4.6 meq/L 3.5-5.1 [facility] ([facility]) Creatinine 1.1 mg/dL 0.6-1.3 [facility] Chloride [Moles/volume] in Serum or Plasma 108 meq/L 98-107 [facility] ([facility]) Carbon dioxide, total [Moles/volume] in Serum or Plasma 23 meq/L 21 -32 [facility] Glomerular filtration rate/1.73 sq M pre dicted among blacks [Volume Rate/Area] in Serum or Plasma by Creatinine-based formula (MDRD) 58 mL/min [facility] <content>CHRONIC KIDNEY DISEASE STAGING PER NKF</content>
<content></content>
<content>STAGE I & II GFR >= 60 NORMAL TO MILDLY DECREASED</content>
<content>STAGE III GFR 30-59 MODERATELY DECREASED</content>
<content>STAGE IV GFR 15-29 SEVERELY DECREASED</content>
<content>STAGE V GFR <15 VERY LITTLE GFR LEFT</content>
<content>ESRD GFR <15 ON SENIOR QUALITY ASSURANCE SPECIALIST</content>
<content></content> Glomerular filtration rate/1.73 sq M pre dicted among non-blacks [Volume Rate/Area] in Serum or Plasma by Creatinine-based formula (MDRD) 48 mL/min [facility] Calcium [Mass/volume] in Serum or Plasma 8.9 mg/dL 8.5-10.1 [facility] [facility] ([facility]) ID Date Data Source [id number] 12/31/2020 12:08:00 PM EDT [facility] Name Value Range Interpretation Code Description Data Aura rce(s) Supporting Document(s) Hemoglobin A1c/Hemoglobin.total in Blood 7.5 % [facility] ([facility]) Lab Result Notes: Pre-Diabetes 5.7 - 6.4 % Diabetes = or > 6.5% Glucose mean value [Mass/volume] in Blood Estimated fr om glycated hemoglobin 169 mg/dL 60-110 [facility] ([facility] ) ID Date Data Source [id number] 12/31/2020 12:08:00 PM EDT [facility]) Name Value Range Interpretation Code Description Data Aura rce(s) Supporting Document(s) Erythrocytes [#/volume] in Blood by Automated count 3.63 x10*6/UL 4.2 0-6.30 [facility] ([facility]) Leukocytes [#/volume] in Blood by Automated count 11.7 x10*3/UL 4.1-1 0.9 [facility] ([facility]) Hemoglobin [Mass/volume] in Blood 10.1 g/dL 12.0-18.0 [facility] ([facility]) Hematocrit [Volume Fraction] of Blood by Automated count 31.1 % 3 7.0-51.0 [facility] ([facility]) MCH 27.7 pg 26.0-32.0 [facility]) MCV 85.7 fL 80.0-97.0 [facility]) Erythrocyte distribution width [Ratio] by Automated count 14.2 % 11.6-13.7 [facility] ([facility]) MCHC 32.3 g/dL 31.0-38.0 [facility]) MPV 9.1 FL 7.8-11.0 [facility]) Platelets [#/volume] in Blood by Automated count 300 x10*3/UL 140-440 [facility] ([facility]) Lymph % 25.9 % 10.0-58.5 [facility]) Neut % 68.3 % 37.0-92.0 [facility]) Mid % 5.8 % 1.7-9.3 [facility]) Lymph # 3.0 x10*3/UL 0.6-4.1 [facility] ([facility]) Mid # 0.7 x10*3/UL 0.1-0.6 [facility] ([facility]) Neut # 8.0 x10*3/UL 2.0-7.8 [facility] ([facility]) ID Date Data Source [id number] 09/24/2020 11:22:00 AM EST [facility] ([facility]) Name Value Range Interpretation Code Description Data Aura rce(s) Supporting Document(s) Triglyceride [Mass/volume] in Serum or Plasma 78 mg/dL 30-150 [facility] ([facility]) Cholesterol [Mass/volume] in Serum or Plasma 120 mg/dL 131-200 [facility] ([facility]) Cholesterol in HDL [Mass/volume] in Serum or Plasma 54 mg/dL 35-60 [facility] ([facility]) Cholesterol in LDL [Mass/volume] in Serum or Plasma by calcu lation 50 CALC 50-159 [facility] ([facility]) ID Date Data Source [id number] 09/24/2020 11:22:00 AM EST [facility] ([facility]) Name Value Range Interpretation Code Description Data Aura rce(s) Supporting Document(s) Glucose [Mass/volume] in Serum or Plasma 140 mg/dL 74-99 [facility] ([facility]) 100-125 mg/dL PRE-DIABETES/FASTING >126 mg/dL DIABETES/FASTING Urea nitrogen [Mass/volume] in Serum or Plasma 33 mg/dL 7-18 [facility] ([facility]) NOTE: RESULT VERIFIED. Sodium [Moles/volume] in Serum or Plasma 146 meq/L 136-145 [facility] ([facility]) Potassium [Moles/volume] in Serum or Plasma 4.9 meq/L 3.5-5.1 [facility] ([facility]) Creatinine 1.1 mg/dL 0.6-1.3 [facility] ([facility]) Carbon dioxide, total [Moles/volume] in Serum or Plasma 24 meq/L 21 -32 [facility] ([facility]) Chloride [Moles/volume] in Serum or Plasma 111 meq/L 98-107 [facility] ([facility]) Alkaline phosphatase isoenzyme [Units/volume] in Serum or Pl asma 113 mg/dL 46-116 [facility] ([facility]) Calcium [Mass/volume] in Serum or Plasma 8.6 mg/dL 8.5-10.1 [facility] ([facility]) Total Bilirubin 0.2 mg/dL 0.2-1.0 [facility] ([facility]) Alanine aminotransferase [Enzymatic activity/volume] in Seru m or Plasma 22 U/L 12-78 [facility] ([facility]) Aspartate aminotransferase [Enzymatic activity/volume] in Serum or Plasma 21 U/L 15-37 [facility] Albumin [Mass/volume] in Serum or Plasma 3.3 g/dL 3.4-5.0 [facility] Proteinase 3 Ab [Units/volume] in Serum 7.8 g/dL 6.4-8.2 [facility] A/G Ratio 0.73 CALC 1.00-1.90 [facility]) Glomerular filtration rate/1.73 sq M pre dicted among blacks [Volume Rate/Area] in Serum or Plasma by Creatinine-based formula (MDRD) 58 mL/min [facility] <content>CHRONIC KIDNEY DISEASE STAGING PER NKF</content>
<content></content>
<content>STAGE I & II GFR >= 60 NORMAL TO MILDLY DECREASED</content>
<content>STAGE III GFR 30-59 MODERATELY DECREASED</content>
<content>STAGE IV GFR 15-29 SEVERELY DECREASED</content>
<content>STAGE V GFR <15 VERY LITTLE GFR LEFT</content>
<content>ESRD GFR <15 ON SENIOR QUALITY ASSURANCE SPECIALIST</content>
<content></content> Glomerular filtration rate/1.73 sq M pre dicted among non-blacks [Volume Rate/Area] in Serum or Plasma by Creatinine-based formula (MDRD) 48 mL/min [facility] ID Date Data Source [id number] 09/24/2020 11:22:00 AM EST [facility] Name Value Range Interpretation Code Description Data Aura rce(s) Supporting Document(s) Hemoglobin A1c/Hemoglobin.total in Blood 9.2 % [facility] Lab Result Notes: Pre-Diabetes 5.7 - 6.4 % Diabetes = or > 6.5% Glucose mean value [Mass/volume] in Blood Estimated fr om glycated hemoglobin 217 mg/dL 60-110 [facility] ([facility] ) ID Date Data Source [id number] 09/24/2020 11:22:00 AM EST [facility] ([facility]) Name Value Range Interpretation Code Description Data Aura rce(s) Supporting Document(s) Leukocytes [#/volume] in Blood by Automated count 10.1 x10*3/UL 4.1-1 0.9 [facility] ([facility]) NOTE: CBC VERIFIED Hemoglobin [Mass/volume] in Blood 9.6 g/dL 12.0-18.0 [facility] ([facility]) Erythrocytes [#/volume] in Blood by Automated count 3.22 x10*6/UL 4.2 0-6.30 [facility] ([facility]) MCV 89.1 fL 80.0-97.0 [facility]) MCH 29.8 pg 26.0-32.0 [facility]) Hematocrit [Volume Fraction] of Blood by Automated count 28.7 % 3 7.0-51.0 [facility] ([facility]) Platelets [#/volume] in Blood by Automated count 261 x10*3/UL 140-440 [facility] ([facility]) Erythrocyte distribution width [Ratio] by Automated count 14.4 % 11.6-13.7 [facility] ([facility]) MCHC 33.4 g/dL 31.0-38.0 [facility]) Lymph % 24.3 % 10.0-58.5 [facility]) MPV 8.4 FL 7.8-11.0 [facility]) Neut % 70.1 % 37.0-92.0 [facility]) Mid % 5.6 % 1.7-9.3 [facility] [facility]) Lymph # 2.4 x10*3/UL 0.6-4.1 [facility] ([facility]) Mid # 0.6 x10*3/UL 0.1-0.6 [facility] ([facility]) Neut # 7.1 x10*3/UL 2.0-7.8 [facility] ID Date Data Source [id number] 08/23/2020 05:48:00 PM EST [facility] Name Value Range Interpretation Code Description Data Aura rce(s) Supporting Document(s) SARS coronavirus 2 RNA [Presence] in Res piratory specimen by ARLETTE with probe detection [facility] This lab was ordered by [facility] a nd reported by [facility]. ID Date Data Source [id number] 08/10/2020 05:31:00 PM EST [facility] Name Value Range Interpretation Code Description Data Aura rce(s) Supporting Document(s) SARS coronavirus 2 RNA [Presence] in Res piratory specimen by ARLETTE with probe detection [facility] This lab was ordered by [facility] a nd reported by [facility]. ID Date Data Source [id number] 08/10/2020 01:39:00 PM EST [facility] Name Value Range Interpretation Code Description Data Aura rce(s) Supporting Document(s) Appearance, Urine RFX Laboratory test result [facility] ([facility] PH,Urine RFX 5.0 units 5.0-9.0 [facility] Color, Urine RFX Laboratory test result [facility] Protein, Urine Auto RFX Laboratory test result [facility] Specific [place] Ur Auto RFX 1.016 1.002-1.035 [facility] Ketone, Urine Auto RFX Laboratory test result [facility] Glucose, Urine (Ua) Auto RFX Laboratory test result [facility] Bilirubin, Urine Auto RFX Laboratory test result [facility] Urobilinogen, Urine Auto RFX 0.2 mg/dL 0.0-2.0 [facility] Leukocyte Esterase Ur Auto RFX Laboratory test result [facility] ([facility]) Blood, Urine Blood RFX Laboratory test result [facility] Nitrite, Urine Auto RFX Laboratory test result [facility] RBC, Urine Auto RFX 6 /HPF 0-3 [facility] WBC, Urine Auto RFX 1 /HPF 0-3 [facility] ([facility]) Squam Epithelial Cell Ur Aurfx 0 /HPF 0-6 [facility] ([facility]) Bacteria, Urine Auto RFX Laboratory test result [facility] ([facility]) Hyaline Cast, Urine Auto RFX 0 /LPF 0-1 [facility] ([facility]) ID Date Data Source [id number] 08/10/2020 01:39:00 PM EST [facility] ([facility]) Name Value Range Interpretation Code Description Data Aura rce(s) Supporting Document(s) Glucose, Fasting 344 mg/dL 70-100 [facility] ([facility]) Creatinine For GFR 0.93 mg/dL 0.55-1.30 [facility] ([facility]) Blood Urea Nitrogen 19 mg/dL 7-18 [facility] ([facility]) Sodium Level 135 meq/L 136-145 [facility] ([facility]) Glomerular Filtration Rate Laboratory test result [facility] <content>Units are mL/min/1.73 m2</content>
<content></content>
<content>Chronic Kidney Disease Staging per NKF:</content>
<content></content>
<content>Stage I & II GFR >=60 Normal to Mildly Decreased</content>
<content>Stage III GFR 30- 59 Moderately Decreased</content>
<content>Stage IV GFR 15-29 Severely Decreased</content>
<content>Stage V GFR <15 Very Little GFR Left</content>
<content>ESRD GFR <15 on SENIOR QUALITY ASSURANCE SPECIALIST</content>
<content></content> Potassium Serum 5.0 meq/L 3.5-5.1 [facility] ([facility]) Chloride Level 102 meq/L 98-107 [facility] ([facility]) Anion Gap 10 meq/L 8-16 [facility]) Carbon Dioxide Level 23 meq/L 21-32 [facility] ([facility]) Calcium Level 9.3 mg/dL 8.8-10.2 [facility] ([facility]) ID Date Data Source [id number] 08/10/2020 12:26:00 PM EST [facility] ([facility]) Name Value Range Interpretation Code Description Data Aura rce(s) Supporting Document(s) Bedside Glucose 342 mg/dL 83-110 [facility] ([facility]) ID Date Data Source [id number] 08/10/2020 12:21:00 PM EST [facility] ([facility]) Name Value Range Interpretation Code Description Data Aura rce(s) Supporting Document(s) Glucose, Fasting 345 mg/dL 70-100 [facility] ([facility]) Blood Urea Nitrogen 20 mg/dL 7-18 [facility] ([facility]) Creatinine For GFR 0.94 mg/dL 0.55-1.30 [facility] ([facility]) Glomerular Filtration Rate [facility] <content>Units are mL/min/1.73 m2</content>
<content></content>
<content>Chronic Kidney Disease Staging per NKF:</content>
<content></content>
<content>Stage I & II GFR >=60 Normal to Mildly Decreased</content>
<content>Stage III GFR 30- 59 Moderately Decreased</content>
<content>Stage IV GFR 15-29 Severely Decreased</content>
<content>Stage V GFR <15 Very Little GFR Left</content>
<content>ESRD GFR <15 on SENIOR QUALITY ASSURANCE SPECIALIST</content>
<content></content> Sodium Level 134 meq/L 136-145 [facility] ([facility]) Chloride Level 102 meq/L 98-107 [facility] ([facility]) Potassium Serum 6.0 meq/L 3.5-5.1 [facility] ([facility]) Testing was performed on a hemolysed spe cimen. Suggest recollection of specimen for more accurate test results. Carbon Dioxide Level 25 meq/L 21-32 [facility] Anion Gap 7 meq/L 8-16 [facility]) Calcium Level 9.3 mg/dL 8.8-10.2 [facility] ([facility]) Ast/Sgot 42 U/L 7-37 [facility]) Alt/SGPT 26 U/L 12-78 [facility] Alkaline Phosphatase 127 U/L 45-117 [facility] Bilirubin,Total 0.6 mg/dL 0.2-1.0 [facility] ([facility]) Total Protein 7.8 GM/DL 6.4-8.2 [facility] ([facility]) Albumin 3.2 GM/DL 3.2-5.2 [facility] Albumin/Globulin Ratio 0.7 1.2-2.2 [facility] ([facility]) ID Date Data Source [id number] 08/10/2020 12:21:00 PM EST [facility] ([facility]) Name Value Range Interpretation Code Description Data Aura rce(s) Supporting Document(s) Red Blood Count 3.71 10 4.00-5.40 [facility] ([facility]) White Blood Count 14.0 10 4.0-10.0 [facility] ([facility]) Hemoglobin 10.3 g/dL 12.0-15.5 [facility]) Mean Corpuscular Volume 91.6 fl 80.0-96.0 [facility] ([facility]) Hematocrit 34.0 % 36.0-47.0 [facility]) Mean Corpuscular HGB Conc 30.3 g/dL 32.0-36.5 [facility] ([facility]) Mean Corpuscular Hemoglobin 27.8 pg 27.0-33.0 [facility] ([facility]) Red Cell Distribution Width 15.4 % 11.5-14.5 [facility] ([facility]) Platelet Count, Automated 260 10 150-450 [facility] ([facility]) Nucleated Red Blood Cell % 0.0 % 0-0 [facility] ([facility]) ID Date Data Source [id number] 08/10/2020 12:21:00 PM EST [facility] ([facility]) Name Value Range Interpretation Code Description Data Aura rce(s) Supporting Document(s) Acetone/Ketone 22.73 mg/dL [facility] ([facility]) ID Date Data Source [id number] 08/10/2020 12:21:00 PM EST [facility] ([facility]) Name Value Range Interpretation Code Description Data Aura rce(s) Supporting Document(s) Venous Partial Pressure Co2 52.5 mmHg 38.0-50.0 [facility] ([facility]) Venous PH 7.311 units 7.330-7.430 [facility] ([facility]) Venous Total Co2 27.5 meq/L 24.0-28.0 [facility] ([facility]) Venous Partial Pressure O2 49.0 mmHg 30.0-50.0 [facility] ([facility]) Venous Hco3 25.9 meq/L 23.0-27.0 [facility] ([facility]) Venous Base Excess -0.8 [facility] ([facility]) Venous Standard Hco3 23.5 meq/L [facility] ( [facility]) Venous O2 Saturation 81.4 % 60.0-80.0 [facility] ([facility]) ID Date Data Source [id number] 08/10/2020 12:21:00 PM EST [facility] ([facility]) Name Value Range Interpretation Code Description Data Aura rce(s) Supporting Document(s) Hemoglobin A1c 10.8 % [facility] <content>REFERENCE RANGES:</content><br/ ><content></content>
<content><=5.6% NORMAL</content>
<content>5.7-6.4% SUGGESTS IMPAIRED GLUCOSE METABOLISM/PREDIABETIC</content>
<content>>= 6.5% ABNORMAL</content>
<content></content> Estimated Average Glucose 263 mg/dL 60-110 [facility] ([facility]) ID Date Data Source [id number] 08/10/2020 12:21:00 PM EST [facility] ([facility]) Name Value Range Interpretation Code Description Data Aura rce(s) Supporting Document(s) Lactate [Mass/volume] in Serum or Plasma 1.7 mmol/L 0.4-2.0 [facility] ([facility]) Y/N query for Sepsis Lactate Rule: Y ID Date Data Source [id number] 08/07/2020 12:59:00 AM EST [facility] Name Value Range Interpretation Code Description Data Aura rce(s) Supporting Document(s) Laboratory test finding (navigational concept) Laboratory test result [facility] ([facility]) A false negative result may occur [...] pathogens. DISCLAIMER: Testing was performed using the [employer] SARS-CoV-2 test. This test was developed and its performance characteristics determined by [employer]. This test has not been FDA cleared [...] or revoked sooner. ID Date Data Source [id number] 08/07/2020 12:59:00 AM EST [facility] Name Value Range Interpretation Code Description Data Aura rce(s) Supporting Document(s) SARS coronavirus 2 RNA [Presence] in Res piratory specimen by ARLETTE with probe detection [facility] This lab was ordered by [facility] a nd reported by [facility]. ID Date Data Source [id number] 08/07/2020 12:57:00 AM EST [facility] Name Value Range Interpretation Code Description Data Aura rce(s) Supporting Document(s) Bedside Glucose 237 mg/dL 83-110 [facility] ID Date Data Source [id number] 08/06/2020 11:13:00 PM EST [facility] ([facility]) Name Value Range Interpretation Code Description Data Aura rce(s) Supporting Document(s) Bedside Glucose 219 mg/dL 83-110 [facility] ID Date Data Source [id number] 08/06/2020 08:05:00 PM EST [facility] ([facility] Name Value Range Interpretation Code Description Data Aura rce(s) Supporting Document(s) Color, Urine RFX Laboratory test result [facility] ([facility]) Appearance, Urine RFX Laboratory test result [facility] PH,Urine RFX 5.0 units 5.0-9.0 [facility] Specific [place] Ur Auto RFX 1.023 1.002-1.035 [facility] Protein, Urine Auto RFX Laboratory test result [facility] ([facility] Glucose, Urine (Ua) Auto RFX Laboratory test result [facility] ([facility] Ketone, Urine Auto RFX Laboratory test result [facility] ([facility] Urobilinogen, Urine Auto RFX 0.2 mg/dL 0.0-2.0 [facility] ([facility] Bilirubin, Urine Auto RFX Laboratory test result [facility] ([facility] Leukocyte Esterase Ur Auto RFX Laboratory test result [facility] ([facility] Nitrite, Urine Auto RFX Laboratory test result [facility] ([facility] Blood, Urine Blood RFX Laboratory test result [facility] RBC, Urine Auto RFX 6 /HPF 0-3 [facility] ([facility]) WBC, Urine Auto RFX 42 /HPF 0-3 [facility] Bacteria, Urine Auto RFX Laboratory test result [facility] ([facility] Squam Epithelial Cell Ur Aurfx 2 /HPF 0-6 [facility] Hyaline Cast, Urine Auto RFX 0 /LPF 0-1 [facility] ([facility] ID Date Data Source [id number] 08/06/2020 06:27:00 PM EST [facility] ([facility]) Name Value Range Interpretation Code Description Data Aura rce(s) Supporting Document(s) ABG pH (Arterial) 7.361 units 7.350-7.450 [facility] ( [facility]) ABG Partial Pressure Co2 38.2 mmHg 35.0-45.0 [facility] ABG Partial Pressure O2 89.0 mmHg 75.0-100.0 [facility] ABG Total Co2 22.3 meq/L 23.0-31.0 [facility] ([facility]) ABG Hco3 21.1 meq/L 22.0-26.0 [facility] [facility]) ABG Base Excess -3.9 [facility] ([facility]) ABG Standard Hco3 21.2 meq/L 22.0-26.0 [facility] ([facility]) ABG O2 Saturation 96.2 % 95.0-99.0 [facility] ([facility]) ID Date Data Source [id number] 08/06/2020 06:18:00 PM EST [facility] ([facility]) Name Value Range Interpretation Code Description Data Aura rce(s) Supporting Document(s) White Blood Count 11.2 10 4.0-10.0 [facility] ([facility]) Red Blood Count 3.97 10 4.00-5.40 [facility] ([facility]) Hematocrit 36.1 % 36.0-47.0 [facility] Hemoglobin 11.1 g/dL 12.0-15.5 [facility] Mean Corpuscular Volume 90.9 fl 80.0-96.0 [facility] ([facility]) Mean Corpuscular Hemoglobin 28.0 pg 27.0-33.0 [facility] ([facility]) Red Cell Distribution Width 14.9 % 11.5-14.5 [facility] ([facility]) Mean Corpuscular HGB Conc 30.7 g/dL 32.0-36.5 [facility] ([facility]) Platelet Count, Automated 234 10 150-450 [facility] ([facility]) Neutrophils % 68.6 % 36.0-66.0 [facility] ([facility]) Pleasants % 9.5 % 0.0-5.0 [facility] Lymph % 20.7 % 24.0-44.0 [facility] [facility] Eos % 0.3 % 0.0-3.0 [facility] [facility] Baso % 0.5 % 0.0-1.0 [facility] [facility]) Immature Granulocyte % 0.4 % 0-3.0 [facility] ([facility]) Nucleated Red Blood Cell % 0.0 % 0-0 [facility] ([facility]) Neutrophils # 7.7 10 1.5-8.5 [facility] ([facility]) Lymph # 2.3 10 1.5-5.0 [facility] [facility] Pleasants # 1.1 10 0.0-0.8 [facility] Eos # 0.0 10 0.0-0.5 [facility] [facility] Baso # 0.1 10 0.0-0.2 [facility] [facility] ID Date Data Source [id number] 08/06/2020 06:18:00 PM EST [facility] ([facility]) Name Value Range Interpretation Code Description Data Aura rce(s) Supporting Document(s) CPK Creatine Phosphokinase 103 U/L 26-192 [facility] ([facility]) MB/CK Relative Index 5.15 [facility] ([facility]) <content>DIAGNOSIS CRITERIA</content>
<content>MMB ng/ml Relative Index (RI)</content>
<content>NON-AMI < or = 5 N/A</content>
<content>OSULLIVAN ZONE > 5 < or = 4</content>
<content>AMI > 5 > 4</content>
<content></content> Troponin I 0.07 ng/mL [facility] ([facility]) <content>Troponin I Reference Interval f or Siemens [place] LOCI:</content>
<content></content>
<content>99th Percentile= 0.00-0.045 ng/ml</content>
<content></content>
<content>Risk Stratification:</content>
<content><= 0.10 ng/ml Decreased Risk for Adverse Clinical</content>
<content>Events.</content>
<content>0.10-1.50 ng/ml Increased Risk for Adverse Clinical</content>
<content>Events. Evaluation of additional</content>
<content>criterion and/or repeat testing in 2-6</content>
<content>hours is suggested to rule out myocardial</content>
<content>damage.</content>
<content>>= 1.50 ng/ml Indicative of Myocardial Injury.</content>
<content></content> CK-MB Value Mass 5.3 ng/mL [facility] ([facility]) ID Date Data Source [id number] 08/06/2020 06:18:00 PM EST [facility] ([facility]) Name Value Range Interpretation Code Description Data Aura rce(s) Supporting Document(s) Ast/Sgot 18 U/L 7-37 [facility] ([place] [facility]) Alt/SGPT 24 U/L 12-78 [facility] ([facility]) Alkaline Phosphatase 150 U/L 45-117 [facility] ([facility]) Bilirubin,Direct 0.1 mg/dL 0.0-0.2 [facility] ([facility]) Total Protein 8.5 GM/DL 6.4-8.2 [facility] ([facility]) Bilirubin,Total 0.5 mg/dL 0.2-1.0 [facility] ([facility]) Albumin 3.4 GM/DL 3.2-5.2 [facility] ([facility]) Albumin/Globulin Ratio 0.7 1.2-2.2 [facility] ([facility]) ID Date Data Source [id number] 08/06/2020 06:18:00 PM EST [facility] ([facility]) Name Value Range Interpretation Code Description Data Aura rce(s) Supporting Document(s) Glucose, Fasting 465 mg/dL 70-100 Above upper panic limits [facility] ([facility]) Blood Urea Nitrogen 26 mg/dL 7-18 [facility] ([facility]) Creatinine For GFR 1.34 mg/dL 0.55-1.30 [facility] ([facility]) Glomerular Filtration Rate 40.3 MED ENT ([facility]) <content>Units are mL/min/1.73 m2</content>
<content></content>
<content>Chronic Kidney Disease Staging per NKF:</content>
<content></content>
<content>Stage I & II GFR >=60 Normal to Mildly Decreased</content>
<content>Stage III GFR 30- 59 Moderately Decreased</content>
<content>Stage IV GFR 15-29 Severely Decreased</content>
<content>Stage V GFR <15 Very Little GFR Left</content>
<content>ESRD GFR <15 on SENIOR QUALITY ASSURANCE SPECIALIST</content>
<content></content> Sodium Level 130 meq/L 136-145 [facility] ([facility]) Potassium Serum 5.0 meq/L 3.5-5.1 [facility] ([facility]) Carbon Dioxide Level 22 meq/L 21-32 [facility] ([facility]) Chloride Level 98 meq/L 98-107 [facility] ([facility]) Anion Gap 10 meq/L 8-16 [facility] ([place] [facility]) Calcium Level 9.0 mg/dL 8.8-10.2 [facility] ([facility]) ID Date Data Source [id number] 08/06/2020 06:18:00 PM EST [facility] ([facility]) Name Value Range Interpretation Code Description Data Aura rce(s) Supporting Document(s) Phosphate [Moles/volume] in Serum or Plasma 3.2 mg/dL 2.5-4.9 [facility] ([facility]) Magnesium [Moles/volume] in Serum or Plasma 2.0 mg/dL 1.8-2.4 [facility] ([facility]) ID Date Data Source [id number] 08/06/2020 06:18:00 PM EST [facility] Name Value Range Interpretation Code Description Data Aura rce(s) Supporting Document(s) Acetone/Ketone 33.08 mg/dL [facility] ([facility]) ID Date Data Source [id number] 08/06/2020 06:18:00 PM EST [facility] Name Value Range Interpretation Code Description Data Aura rce(s) Supporting Document(s) Lipoprotein lipase [Enzymatic activity/volume] in Serum or Plasm a 38 U/L 73-393 [facility] ([facility] Osmolality of Serum or Plasma 311 MOSM/KG 280-301 [facility] ID Date Data Source [id number] 08/06/2020 06:18:00 PM EST [facility] ([facility] Name Value Range Interpretation Code Description Data Aura rce(s) Supporting Document(s) Hemoglobin A1c 11.2 % [facility] ([facility]) <content>REFERENCE RANGES:</content><br/ ><content></content>
<content><=5.6% NORMAL</content>
<content>5.7-6.4% SUGGESTS IMPAIRED GLUCOSE METABOLISM/PREDIABETIC</content>
<content>>= 6.5% ABNORMAL</content>
<content></content> Estimated Average Glucose 275 mg/dL 60-110 [facility]E NT ([facility] ID Date Data Source [id number] 08/06/2020 06:18:00 PM EST [facility] ([facility] Name Value Range Interpretation Code Description Data Aura rce(s) Supporting Document(s) Ammonia [Mass/volume] in Blood 44 uMOL/L [facility] ([facility] ID Date Data Source [id number] 05/22/2020 09:38:00 AM EDT [facility] ([facility] Name Value Range Interpretation Code Description Data Aura rce(s) Supporting Document(s) Microalbumin Urine 69.8 mg/L 1.3-20.0 [facility] ([facility]) Microalb/Creat Ratio 55.7 ug/mg 0.0-30.0 [facility] ( [facility]) Urine Creatinine 125.4 mg/dL 30.0-125.0 [facility] ([facility]) ID Date Data Source [id number] 05/22/2020 09:38:00 AM EDT [facility] ([facility]) Name Value Range Interpretation Code Description Data Aura rce(s) Supporting Document(s) Glucose [Mass/volume] in Serum or Plasma 131 mg/dL 74-99 [facility] ([facility]) 100-125 mg/dL PRE-DIABETES/FASTING >126 mg/dL DIABETES/FASTING Urea nitrogen [Mass/volume] in Serum or Plasma 25 mg/dL 7-18 [facility] ([facility]) Creatinine 1.0 mg/dL 0.6-1.3 [facility] ([facility]) Sodium [Moles/volume] in Serum or Plasma 141 meq/L 136-145 [facility] ([facility]) Potassium [Moles/volume] in Serum or Plasma 4.1 meq/L 3.5-5.1 [facility] ([facility]) Chloride [Moles/volume] in Serum or Plasma 105 meq/L 98-107 [facility] ([facility]) Carbon dioxide, total [Moles/volume] in Serum or Plasma 27 meq/L 21 -32 [facility] ([facility]) Calcium [Mass/volume] in Serum or Plasma 8.9 mg/dL 8.5-10.1 [facility] ([facility]) Glomerular filtration rate/1.73 sq M pre dicted among non-blacks [Volume Rate/Area] in Serum or Plasma by Creatinine-based formula (MDRD) 53 mL/min [facility] ([facility]) Glomerular filtration rate/1.73 sq M pre dicted among blacks [Volume Rate/Area] in Serum or Plasma by Creatinine-based formula (MDRD) Laboratory test result [facility] ([facility] <content>CHRONIC KIDNEY DISEASE STAGING PER NKF</content>
<content></content>
<content>STAGE I & II GFR >= 60 NORMAL TO MILDLY DECREASED</content>
<content>STAGE III GFR 30-59 MODERATELY DECREASED</content>
<content>STAGE IV GFR 15-29 SEVERELY DECREASED</content>
<content>STAGE V GFR <15 VERY LITTLE GFR LEFT</content>
<content>ESRD GFR <15 ON SENIOR QUALITY ASSURANCE SPECIALIST</content>
<content></content> ID Date Data Source [id number] 05/22/2020 09:38:00 AM EDT [facility] Name Value Range Interpretation Code Description Data Aura rce(s) Supporting Document(s) Hemoglobin A1c/Hemoglobin.total in Blood 12.0 % [facility] ([facility] NOTE: RESULT VERIFIED. Lab Result Notes: Pre-Diabetes 5.7 - 6.4 % Diabetes = or > 6.5% Glucose mean value [Mass/volume] in Blood Estimated fr om glycated hemoglobin 298 mg/dL 60-110 [facility] ([facility] ) ID Date Data Source [id number] 05/22/2020 09:38:00 AM EDT [facility] ([facility]) Name Value Range Interpretation Code Description Data Aura rce(s) Supporting Document(s) Erythrocytes [#/volume] in Blood by Automated count 3.83 x10*6/UL 4.2 0-6.30 [facility] ([facility] Hemoglobin [Mass/volume] in Blood 10.9 g/dL 12.0-18.0 [facility] ([facility] Leukocytes [#/volume] in Blood by Automated count 11.6 x10*3/UL 4.1-1 0.9 [facility] ([facility] NOTE: RESULT VERIFIED. Hematocrit [Volume Fraction] of Blood by Automated count 32.6 % 3 7.0-51.0 [facility] MCV 85.2 fL 80.0-97.0 [facility] MCH 28.5 pg 26.0-32.0 [facility] Erythrocyte distribution width [Ratio] by Automated count 14.3 % 11.6-13.7 [facility] ([facility]) MCHC 33.4 g/dL 31.0-38.0 [facility] Platelets [#/volume] in Blood by Automated count 285 x10*3/UL 140-440 [facility] ([facility]) MPV 8.8 FL 7.8-11.0 [facility] [facility] Mid % 7.4 % 1.7-9.3 [facility] Lymph % 26.8 % 10.0-58.5 [facility] [facility] Neut % 65.8 % 37.0-92.0 [facility] Mid # 0.9 x10*3/UL 0.1-0.6 [facility] ([facility]) Lymph # 3.1 x10*3/UL 0.6-4.1 [facility] ([facility]) Neut # 7.6 x10*3/UL 2.0-7.8 [facility] ([facility]) Procedure Social History Code Duration Value Status Description Data Source(s ) Smoking 10/12/2020 10:52:59 AM EST Ex-smoker (finding) complet ed Ex-smoker (finding) STEPHANIE (Inderjit Interiano MD [facility]) Smoking 05/09/2020 01:41:55 PM EDT Ex-smoker (finding) complet ed Ex-smoker (finding) STEPHANIE (Inderjit Interiano MD [facility]) Vital Signs ID Date Data Source UNK Name Value Range Interpretation Code Description Data Source(s) Body weight 147.00 [lb_av] 147.00 [lb_av] MED[facility] T ([facility]) Body mass index (BMI) [Ratio] 25.4 kg/m2 25.4 k g/m2 [facility] ([facility]) Systolic blood pressure 144 mm[Hg] 144 mm[Hg] M EDENT ([facility]) Diastolic blood pressure 80 mm[Hg] 80 mm[Hg] [facility] ([facility]) Body height 63.75 [in_i] 63.75 [in_i] [facility] ( [facility]) 5'3.75" Heart rate 68 /min 68 /min [facility] [facility] Systolic blood pressure 146 mm[Hg] 146 mm[facility]Hg] [facility] Diastolic blood pressure 72 mm[Hg] 72 mm[Hg] [facility] ([facility]) Heart rate 65 /min 65 /min [facility] Body height 63.75 [in_i] 63.75 [in_i] [facility] ([facility]) 5'3.75" Body weight 147.00 [lb_av] 147.00 [lb_av] MEDEN T ([facility]) Body mass index (BMI) [Ratio] 25.4 kg/m2 25.4 k g/m2 [facility] ([facility]) Oxygen saturation in Arterial blood by Pulse oximetry 96 % 96 % [facility] Diastolic blood pressure 80 mm[Hg] 80 mm[Hg] [facility] ([facility]) Heart rate 68 /min 68 /min [facility] ([facility]) Systolic blood pressure 130 mm[Hg] 130 mm[Hg] [facility] ([facility]) Body height 63.75 [in_i] 63.75 [in_i] [facility] ([facility]) 5'3.75" Body weight 150.00 [lb_av] 150.00 [lb_av] MEDEN T ([facility]) Body mass index (BMI) [Ratio] 25.9 kg/m2 25.9 k g/m2 [facility] ([facility]) Systolic blood pressure 132 mm[Hg] 132 mm[Hg] [facility] ([facility]) Diastolic blood pressure 78 mm[Hg] 78 mm[Hg] [facility] ([facility]) Heart rate 70 /min 70 /min [facility] ([facility]) Oxygen saturation in Arterial blood by Pulse oximetry 95 % 95 % [facility] ([facility]) Body height 63.75 [in_i] 63.75 [in_i] [facility] ([facility] 5'3.75" Body weight 156.00 [lb_av] 156.00 [lb_av] [facility] T ([facility]) Body mass index (BMI) [Ratio] 27.0 kg/m2 27.0 k g/m2 [facility] Systolic blood pressure 120 mm[Hg] 120 mm[facility]Hg] [facility] Diastolic blood pressure 70 mm[Hg] 70 mm[Hg] [facility] ([facility]) Body height 63.75 [in_i] 63.75 [in_i] [facility] ([facility]) 5'3.75" Body weight 160.12 [lb_av] 160.12 [lb_av] [facility] T ([facility]) Body mass index (BMI) [Ratio] 27.7 kg/m2 27.7 k g/m2 [facility] Heart rate 71 /min 71 /min [facility]) Body height 63.75 [in_i] 63.75 [in_i] [facility] ([facility]) 5'3.75" Body weight 156.00 [lb_av] 156.00 [lb_av] MEDEN T ([facility]) Oxygen saturation in Arterial blood by Pulse oximetry 94 % 94 % [facility] ([facility]) Air Body mass index (BMI) [Ratio] 27.0 kg/m2 27.0 k g/m2 [facility] Body mass index (BMI) [Ratio] 25.9 kg/m2 25.9 k g/m2 [facility]) Systolic blood pressure 136 mm[Hg] 136 mm[facility]Hg] [facility] Diastolic blood pressure 80 mm[Hg] 80 mm[Hg] [facility] Heart rate 78 /min 78 /min [facility] ([facility]) Body height 63.75 [in_i] 63.75 [in_i] [facility] ([facility]) 5'3.75" Body weight 150.00 [lb_av] 150.00 [lb_av] MEDEN T ([facility]) Heart rate 82 /min 82 /min [facility] Systolic blood pressure 150 mm[Hg] 150 mm[Hg] MARISELA ([facility]) Diastolic blood pressure 62 mm[Hg] 62 mm[Hg] NABIL ([facility]) Body height 63.75 [in_i] 63.75 [in_i] [facility]IL ([facility]) 5'3.75" Body weight 155.00 [lb_av] 155.00 [lb_av] BETTY Heredia ([facility]) Body mass index (BMI) [Ratio] 26.8 kg/m2 26.8 k g/m2 N[facility]IL ([facility])
[2021-06-09] MEDS ORDERED: LEVALBUTEROL HFA 45MCG/ACT 15 GM INHALER INH PRN (20:50)
[2021-06-09] MEDS: DOCUSATE SODIUM 100MG CAPSULE PO SCH (21:00)
[2021-06-09] MEDS: HumaLOG INSULIN (NovoLOG) PER UNIT SC SCH (21:02)
[2021-06-09 21:41] LABS: INR 1.04; PARTIAL THROMBOPLASTIN TIME 26.3 SECONDS (25.9-37.0)
[2021-06-09] MEDS: ramipriL 5 MG CAP PO SCH (22:03)
[2021-06-09] MEDS: GABAPENTIN 300 MG CAP PO SCH (22:03)
[2021-06-09] MEDS: SIMVASTATIN 20 MG TAB PO SCH (22:03)
[2021-06-09] MEDS: ADVAIR HFA 115/21MCG INHALER INH SCH (23:05)
[2021-06-09] MEDS ORDERED: hydrOXYzine 50 MG TAB PO PRN (23:25)
[2021-06-10 01:00] VITALS: BP 141/66
[2021-06-10 04:00] VITALS: BP 148/67
[2021-06-10 05:56] LABS: HEMATOCRIT 36.1 % (36.0-47.0); HEMOGLOBIN 11.1 g/dl (12.0-15.5); MEAN CORPUSCULAR HEMOGLOBIN 28.9 pg (27.0-33.0); MEAN CORPUSCULAR HGB CONC 30.7 g/dl (32.0-36.5); PLATELET COUNT, AUTOMATED 238 10^3/uL (150-450); RED BLOOD COUNT 3.84 10^6/uL (4.00-5.40); WHITE BLOOD COUNT 10.6 10^3/uL (4.0-10.0)
[2021-06-10 06:20] LABS: CALCIUM LEVEL 8.8 MG/DL (8.8-10.2); CREATININE FOR GFR 1.02 MG/DL (0.55-1.30); GLOMERULAR FILTRATION RATE 55.1 (>32); MAGNESIUM LEVEL 1.5 MG/DL (1.8-2.4); POTASSIUM SERUM 3.9 MEQ/L (3.5-5.1)
[2021-06-10] MEDS: ADVAIR HFA 115/21MCG INHALER INH SCH ×2 (07:21→19:35)
[2021-06-10 08:00] VITALS: BP 145/61
[2021-06-10] MEDS ORDERED: LEVEMIR (INSULIN DETEMIR) 1 UNITS/0.01ML SC SCH (09:00)
[2021-06-10] MEDS: MAG SULF 1GM/100ML (MAG RUN) 1 GM in IV 1 EA IV SCH ×2 (09:01→10:26)
[2021-06-10] MEDS: LEVEMIR (INSULIN DETEMIR) 1 UNITS/0.01ML SC SCH ×2 (09:02→20:05)
[2021-06-10] MEDS: SERTRALINE HCL 50 MG TAB PO SCH (09:03)
[2021-06-10] MEDS: HumaLOG INSULIN (NovoLOG) PER UNIT SC SCH ×4 (09:03→20:42)
[2021-06-10] MEDS: DOCUSATE SODIUM 100MG CAPSULE PO SCH ×2 (09:03→20:04)
[2021-06-10] MEDS: ENOXAPARIN 40MG/0.4ML SYRINGE (J1650 PER 10MG) SC SCH (09:03)
[2021-06-10] MEDS: FLUCONAZOLE 100 MG TAB PO SCH (09:06)
--- NOTE | 2021-06-10 13:50 | IPNPDOC ---
Date Seen The patient was seen on 06/10/21. Progress Note SUBJECTIVE: Patient was seen and examined at bedside. She is alert but slightly confused to time and reason for admission. She denies any fevers chills chest pain nausea vomiting diarrhea. Low-grade temperature this morning of 99.1. OBJECTIVE PHYSICAL EXAMINATION: VITAL SIGNS: please see below General: NAD, comfortable HEENT: PERRLA, EOMI, sclerae clear Neck: supple, normal ROM, no JVD Respiratory: lungs CTAB, no wheeze, no rales, no crackles CVS: RRR, normal S1, S2, no murmurs Abdo: soft, no masses, no hepatosplenomegaly, BS+, no rebound tenderness Extremities: no edema, pulses 2+ MSK: no joint deformities, normal ROM Neuro: no focal neuro deficits, moving all 4 extremities, CN2-12 intact. Strength 5/5 in all 4 extremities. No nystagmus. Psych: calm, cooperative, AAO x 2 LABORATORY DATA, IMAGING STUDIES, MICROBIOLOGY: Please see below. CT Head: FINDINGS: Atrophy with periventricular leukomalacia and microvascular ischemic changes are appreciated. The ventricles and sulci are symmetric. Fox-white differentiation is maintained. There is no evidence for acute intracranial hemorrhage, mass/mass effect, pathology or infarction. No extra-axial fluid collection. Calvarium is intact. Paranasal sinuses and mastoid air cells are clear. IMPRESSION: Atrophy and microvascular ischemic changes. No acute intracranial hemorrhage, infarction, or mass/mass effect. CXR: FINDINGS: The mediastinum and cardiac silhouette are stable and within normal limits for portable technique. The lung sanches demonstrate stable chronic changes without acute consolidation, effusion, or pneumothorax. Skeletal structures are intact. IMPRESSION: No acute cardiopulmonary process appreciated. DVT prophylaxis ordered?: Lovenox ASSESSMENT AND PLAN: 81-year-old female with a history of dementia type 2 diabetes, hyperlipidemia, hypertension, asthma. She presented to the ER for evaluation of altered mental status. Found to have UA findings suspicious for UTI. PROBLEMS: Metabolic encephalopathy likely due to UTI - CT head neg on arrival - Patient with ua + for wbc, leuk est, yeast - Not met SIRS criteria - Ceftriaxone Day #2. Fluconazole Day #2. - urine cultures pending - blood cultures pending - admit to med surg for tx IDDM2 with hyperglycemia - hyperglycemia likely 2/2 acute infection - home tresiba 96 units qdaily. Converted to 40u levemir bid - sliding scale insulin - hypoglycemic protocol HTN - continue ramipril, hydralazine prn HLD - continue simvastatin Anxiety/depression - continue sertraline Asthma - continue at home inhalers Hypomagnesemia - replaced with mag run DVT prophylaxis - lovenox VS, I&O, 24H, Fishbone Vital Signs/I&O Vital Signs Date Time Temp Pulse Resp B/P (MAP) Pulse Ox O2 Delivery O2 Flow Rate FiO2 06/10/21 08:00 99.1 75 16 145/61 (89) 92 Room Air I&O- Last 24 Hours up to 6 AM 06/10/21 05:59 Intake Total 150 ml Output Total 50 ml Balance 100 ml Laboratory Data 24H LABS Laboratory Tests 2 06/09/21 16:22: Urine Opiates Screen NEGATIVE, Urine Methadone Screen NEGATIVE, Urine Barbiturates Screen NEGATIVE, Urine Phencyclidine Screen NEGATIVE, Urine Amphetamines Screen NEGATIVE, Urine Benzodiazepines Screen NEGATIVE, Urine Cocaine Metabolite Screen NEGATIVE, Urine Cannabinoids Screen NEGATIVE 06/09/21 17:01: Urine Color YELLOW, Urine Appearance CLOUDYH, Urine pH 7.0, Urine Specific Enochs 1.014, Urine Protein 2+H, Urine Glucose (UA) 3+H, Urine Ketones 1+H, Urine Blood 1+H, Urine Nitrite NEGATIVE, Urine Bilirubin NEGATIVE, Urine Urobilinogen 0.2, Urine Leukocyte Esterase 3+H, Urine WBC (Auto) TNTCH, Urine RBC (Auto) 60H, Urine Hyaline Casts (Auto) 0, Urine Bacteria (Auto) NEGATIVE, Urine Squamous Epithelial Cells 1, Urine Yeast-Like Cells (Auto) MODERATEH, Urine Sperm (Auto) 06/09/21 17:29: Bedside Glucose (Misc Panel) 314H 06/09/21 17:39: Immature Granulocyte % (Auto) 0.4, Neutrophils (%) (Auto) 63.3, Lymphocytes (%) (Auto) 22.7L, Monocytes (%) (Auto) 12.0H, Eosinophils (%) (Auto) 1.0, Basophils (%) (Auto) 0.6, Neutrophils # (Auto) 6.6, Lymphocytes # (Auto) 2.4, Monocytes # (Auto) 1.2H, Eosinophils # (Auto) 0.1, Basophils # (Auto) 0.1, Nucleated Red Blood Cells % (auto) 0.0, Anion Gap 5L, Glomerular Filtration Rate > 60.0, Osmolality 299, Lactic Acid Level 1.2, Calcium Level 9.2, Total Bilirubin 0.7, Direct Bilirubin 0.2, Aspartate Amino Transf (AST/SGOT) 14, Alanine Aminotransferase (ALT/SGPT) 18, Alkaline Phosphatase 134H, Ammonia < 10, Total Creatine Kinase 68, Creatine Kinase MB < 1.0, Creatine Kinase MB Relative Index 1.47, Troponin I < 0.02, Total Protein 8.2, Albumin 3.4, Albumin/Globulin Ratio 0.7L, Thyroid Stimulating Hormone (TSH) 1.960, Salicylates Level < 1.7L, Man taminophen Level < 2.0L, Ethyl Alcohol Level < 0.003 06/09/21 19:26: Coronavirus (COVID-19)(PCR) NEGATIVE, Influenza Type A (RT-PCR) NEGATIVE, Influenza Type B (RT-PCR) NEGATIVE, Respiratory Syncytial Virus (PCR) NEGATIVE 06/09/21 20:52: Bedside Glucose (Misc Panel) 316H 06/09/21 21:14: Prothrombin Time 14.0, Prothromb Time International Ratio 1.04, Activated Partial Thromboplast Time 26.3 06/10/21 05:36: Nucleated Red Blood Cells % (auto) 0.0, Anion Gap 6L, Glomerular Filtration Rate 55.1, Calcium Level 8.8, Magnesium Level 1.5L 06/10/21 12:03: Bedside Glucose (Misc Panel) 340H CBC/BMP Laboratory Tests 06/09/21 17:39 06/10/21 05:36 Microbiology Microbiology 06/09/21 Urine Culture - Final, Complete Yeast Like Organism 06/09/21 Blood Culture, Received Pending 06/09/21 Blood Culture, Received Pending GUANAKITO LOZANO MD Jun 10, 2021 13:50
[2021-06-10 16:00] VITALS: BP 142/66
[2021-06-10] MEDS ORDERED: VANCOMYCIN HCL 1,000 MG, VIAL MATE ADAPTER 1 EACH in NS 250 ML IV SCH (16:00)
[2021-06-10] MEDS ORDERED: VANCOMYCIN HCL 750 MG, VIAL MATE ADAPTER 1 EACH in NS 250 ML IV ONE ×2 (17:00→18:00)
[2021-06-10 20:00] VITALS: BP 139/63
[2021-06-10] MEDS: GABAPENTIN 300 MG CAP PO SCH (20:04)
[2021-06-10] MEDS: SIMVASTATIN 20 MG TAB PO SCH (20:04)
[2021-06-10] MEDS: ramipriL 5 MG CAP PO SCH (20:05)
[2021-06-10] MEDS: cefTRIAXone SOD 1 GM in D5W MINI-BAG PLUS 50 ML IV SCH (20:05)
[2021-06-10] MEDS: NYSTATIN 100,000 UNITS/GM TOPICAL PWD 15 GM TOP SCH (20:52)
[2021-06-11 04:00] VITALS: BP 144/68
[2021-06-11 07:15] LABS: HEMATOCRIT 34.5 % (36.0-47.0); HEMOGLOBIN 10.6 g/dl (12.0-15.5); MEAN CORPUSCULAR HEMOGLOBIN 28.9 pg (27.0-33.0); MEAN CORPUSCULAR HGB CONC 30.7 g/dl (32.0-36.5); PLATELET COUNT, AUTOMATED 227 10^3/uL (150-450); RED BLOOD COUNT 3.67 10^6/uL (4.00-5.40); WHITE BLOOD COUNT 13.2 10^3/uL (4.0-10.0)
[2021-06-11 07:39] LABS: CALCIUM LEVEL 8.6 MG/DL (8.8-10.2); CREATININE FOR GFR 0.97 MG/DL (0.55-1.30); GLOMERULAR FILTRATION RATE 58.4 (>32); MAGNESIUM LEVEL 1.9 MG/DL (1.8-2.4); POTASSIUM SERUM 3.7 MEQ/L (3.5-5.1); VANCOMYCIN LEVEL TROUGH 7.5 UG/ML (10.0-20.0)
[2021-06-11 08:00] VITALS: BP 138/78
[2021-06-11] MEDS ORDERED: VANCOMYCIN HCL 1,000 MG, VIAL MATE ADAPTER 1 EACH in NS 250 ML IV SCH (08:00)
[2021-06-11] MEDS: FLUCONAZOLE 100 MG TAB PO SCH (08:52)
[2021-06-11] MEDS: DOCUSATE SODIUM 100MG CAPSULE PO SCH ×2 (08:52→20:06)
[2021-06-11] MEDS: SERTRALINE HCL 50 MG TAB PO SCH (08:52)
[2021-06-11] MEDS: ENOXAPARIN 40MG/0.4ML SYRINGE (J1650 PER 10MG) SC SCH (08:53)
[2021-06-11] MEDS: LEVEMIR (INSULIN DETEMIR) 1 UNITS/0.01ML SC SCH ×2 (08:53→20:08)
[2021-06-11] MEDS: HumaLOG INSULIN (NovoLOG) PER UNIT SC SCH ×4 (08:53→20:08)
[2021-06-11] MEDS: NYSTATIN 100,000 UNITS/GM TOPICAL PWD 15 GM TOP SCH ×2 (08:54→20:06)
[2021-06-11] MEDS: ADVAIR HFA 115/21MCG INHALER INH SCH ×2 (09:25→19:32)
--- NOTE | 2021-06-11 15:16 | IPNPDOC ---
Text Note Date of Service The patient was seen on 06/11/21. NOTE Subjective: No any acute events overnight. Patient denied fever, chills, na usea, diarrhea, dysuria Objective: GENERAL APPEARANCE: NAD HEENT: no scleral icterus, no JVD, EOMI CARDIOVASCULAR: S1S2 LUNGS: Diminished lung sounds bilaterally ABDOMEN: soft & not tender w palpation MUSCULOSKELETAL: no cyanosis, no swelling INTEGUMENT: no generalized pallor NEUROLOGICAL: cranial nerve function from 2-12 intact, follows commands, speech not dysarthric ASSESSMENT AND PLAN: 81-year-old female with a history of dementia type 2 diabetes, hyperlipidemia, hypertension, asthma. She presented to the ER for evaluation of altered mental status. Found to have UA findings suspicious for UTI. Metabolic encephalopathy Resolved Most likely secondary to UTI UTI Continue with ceftriaxone day 3 and fluconazole day 3 1 set of blood culture was positive for gram-positive cocci, second set negative. Patient does not have fever or chills, no leukocytosis. Await repeated blood culture. MRSA negative, vancomycin DC Type 2 diabetes Insulin sliding scale Glucose level not optimally controlled Detemir twice daily, I increased the dose of detemir to 50 units twice daily Hypertension Continue home meds HLD - continue simvastatin Anxiety/depression - continue sertraline Asthma - continue at home inhalers Hypomagnesemia - replaced with mag run DVT prophylaxis - lovenox Patient will be transferred to ALC status VSMarleen, I+O VSMarleen, I+O Laboratory Tests 06/11/21 07:03 Vital Signs Date Time Temp Pulse Resp B/P (MAP) Pulse Ox O2 Delivery O2 Flow Rate FiO2 06/11/21 08:00 98.6 77 17 138/78 (98) 100 Room Air I&O- Last 24 Hours up to 6 AM 06/11/21 06:00 Intake Total 830 ml Output Total 400 ml Balance 430 ml MARIO CUTLER DO Jun 11, 2021 15:16
[2021-06-11 16:00] VITALS: BP 168/72
[2021-06-11 20:00] VITALS: BP 172/74
[2021-06-11] MEDS: SIMVASTATIN 20 MG TAB PO SCH (20:06)
[2021-06-11] MEDS: cefTRIAXone SOD 1 GM in D5W MINI-BAG PLUS 50 ML IV SCH (20:06)
[2021-06-11] MEDS: GABAPENTIN 100 MG CAP PO SCH (20:07)
[2021-06-11] MEDS: ramipriL 5 MG CAP PO SCH (20:08)
[2021-06-11] MEDS: **hydrALAZINE** 50 MG TAB PO PRN ×2 (20:10→21:25)
[2021-06-11 21:20] VITALS: BP 174/70
[2021-06-11 22:17] VITALS: BP 158/54
[2021-06-12 04:00] VITALS: BP 152/65
[2021-06-12 05:22] LABS: HEMATOCRIT 33.7 % (36.0-47.0); HEMOGLOBIN 10.4 g/dl (12.0-15.5); MEAN CORPUSCULAR HEMOGLOBIN 28.5 pg (27.0-33.0); MEAN CORPUSCULAR HGB CONC 30.9 g/dl (32.0-36.5); MEAN CORPUSCULAR VOLUME 92.3 fl (80.0-96.0); PLATELET COUNT, AUTOMATED 241 10^3/uL (150-450); RED BLOOD COUNT 3.65 10^6/uL (4.00-5.40)
[2021-06-12 05:45] LABS: BLOOD UREA NITROGEN 17 MG/DL (7-18); CALCIUM LEVEL 8.3 MG/DL (8.8-10.2); CARBON DIOXIDE LEVEL 29 MEQ/L (21-32); CHLORIDE LEVEL 102 MEQ/L (98-107); CREATININE FOR GFR 0.94 MG/DL (0.55-1.30); GLOMERULAR FILTRATION RATE > 60.0 (>32); GLUCOSE, FASTING 144 MG/DL (70-100); MAGNESIUM LEVEL 1.6 MG/DL (1.8-2.4); POTASSIUM SERUM 3.9 MEQ/L (3.5-5.1); SODIUM LEVEL 137 MEQ/L (136-145)
[2021-06-12 08:00] VITALS: BP 168/72
[2021-06-12] MEDS: HumaLOG INSULIN (NovoLOG) PER UNIT SC SCH ×4 (09:03→20:44)
[2021-06-12] MEDS: ADVAIR HFA 115/21MCG INHALER INH SCH ×2 (09:08→20:35)
[2021-06-12] MEDS: FLUCONAZOLE 100 MG TAB PO SCH (09:14)
[2021-06-12] MEDS: ENOXAPARIN 40MG/0.4ML SYRINGE (J1650 PER 10MG) SC SCH (09:15)
[2021-06-12] MEDS: DOCUSATE SODIUM 100MG CAPSULE PO SCH ×2 (09:15→20:40)
[2021-06-12] MEDS: LEVEMIR (INSULIN DETEMIR) 1 UNITS/0.01ML SC SCH ×2 (09:15→20:44)
[2021-06-12] MEDS: MAGNESIUM OXIDE 400MG TAB (MAG-OX) PO SCH (09:16)
[2021-06-12] MEDS: NYSTATIN 100,000 UNITS/GM TOPICAL PWD 15 GM TOP SCH ×2 (09:16→20:41)
[2021-06-12] MEDS: SERTRALINE HCL 50 MG TAB PO SCH (09:16)
[2021-06-12 12:00] VITALS: BP 164/72
[2021-06-12 14:00] VITALS: BP 164/71
[2021-06-12] MEDS: cefTRIAXone SOD 1 GM in D5W MINI-BAG PLUS 50 ML IV SCH (20:39)
[2021-06-12] MEDS: ramipriL 5 MG CAP PO SCH (20:40)
[2021-06-12] MEDS: GABAPENTIN 100 MG CAP PO SCH (20:40)
[2021-06-12] MEDS: SIMVASTATIN 20 MG TAB PO SCH (20:40)
[2021-06-12 22:00] VITALS: BP 160/72
[2021-06-13 06:00] VITALS: BP 154/71
[2021-06-13 07:18] LABS: HEMATOCRIT 33.3 % (36.0-47.0); HEMOGLOBIN 10.4 g/dl (12.0-15.5); MEAN CORPUSCULAR HEMOGLOBIN 29.1 pg (27.0-33.0); MEAN CORPUSCULAR HGB CONC 31.2 g/dl (32.0-36.5); MEAN CORPUSCULAR VOLUME 93.3 fl (80.0-96.0); PLATELET COUNT, AUTOMATED 242 10^3/uL (150-450); RED BLOOD COUNT 3.57 10^6/uL (4.00-5.40)
[2021-06-13 07:42] LABS: BLOOD UREA NITROGEN 25 MG/DL (7-18); CALCIUM LEVEL 8.6 MG/DL (8.8-10.2); CARBON DIOXIDE LEVEL 28 MEQ/L (21-32); CHLORIDE LEVEL 103 MEQ/L (98-107); CREATININE FOR GFR 0.93 MG/DL (0.55-1.30); GLOMERULAR FILTRATION RATE > 60.0 (>32); GLUCOSE, FASTING 265 MG/DL (70-100); POTASSIUM SERUM 3.9 MEQ/L (3.5-5.1); SODIUM LEVEL 137 MEQ/L (136-145)
[2021-06-13] MEDS: ADVAIR HFA 115/21MCG INHALER INH SCH ×2 (08:01→19:58)
[2021-06-13] MEDS: NYSTATIN 100,000 UNITS/GM TOPICAL PWD 15 GM TOP SCH ×2 (08:58→22:06)
[2021-06-13] MEDS: DOCUSATE SODIUM 100MG CAPSULE PO SCH ×2 (08:59→22:05)
[2021-06-13] MEDS: FLUCONAZOLE 100 MG TAB PO SCH (08:59)
[2021-06-13] MEDS: SERTRALINE HCL 50 MG TAB PO SCH (08:59)
[2021-06-13] MEDS: MAGNESIUM OXIDE 400MG TAB (MAG-OX) PO SCH (08:59)
[2021-06-13] MEDS: CIPROFLOXACIN 250MG TAB PO SCH ×2 (08:59→17:10)
[2021-06-13] MEDS: LEVEMIR (INSULIN DETEMIR) 1 UNITS/0.01ML SC SCH (09:00)
[2021-06-13] MEDS: HumaLOG INSULIN (NovoLOG) PER UNIT SC SCH ×4 (09:00→20:38)
[2021-06-13] MEDS: ENOXAPARIN 40MG/0.4ML SYRINGE (J1650 PER 10MG) SC SCH (09:00)
[2021-06-13 14:00] VITALS: BP 142/65
[2021-06-13] MEDS ORDERED: LEVEMIR (INSULIN DETEMIR) 1 UNITS/0.01ML SC ONE (14:00)
--- NOTE | 2021-06-13 16:01 | IPNPDOC ---
Text Note Date of Service The patient was seen on 06/12/21. NOTE Subjective: No any acute events overnight. Patient denied fever, chills, na usea, diarrhea, dysuria Objective: GENERAL APPEARANCE: NAD HEENT: no scleral icterus, no JVD, EOMI CARDIOVASCULAR: S1S2 LUNGS: Diminished lung sounds bilaterally ABDOMEN: soft & not tender w palpation MUSCULOSKELETAL: no cyanosis, no swelling INTEGUMENT: no generalized pallor NEUROLOGICAL: cranial nerve function from 2-12 intact, follows commands, speech not dysarthric ASSESSMENT AND PLAN: 81-year-old female with a history of dementia type 2 diabetes, hyperlipidemia, hypertension, asthma. She presented to the ER for evaluation of altered mental status. Found to have UA findings suspicious for UTI. Metabolic encephalopathy Resolved Most likely secondary to UTI UTI I changed ceftriaxone IV to oral Cipro and fluconazole day 4 1 set of blood culture was positive for gram-positive cocci, second set negative. Patient does not have fever or chills, no leukocytosis. Repeat blood culture negative. MRSA negative, vancomycin DC Type 2 diabetes Insulin sliding scale Glucose level not optimally controlled Detemir twice daily, I increased the dose of detemir to 50 units twice daily Hypertension Continue home meds HLD - continue simvastatin Anxiety/depression - continue sertraline Asthma - continue at home inhalers Hypomagnesemia - replaced with mag run DVT prophylaxis - lovenox Patient will be transferred to ALC status VSMarleen, I+O VSMarleen, I+O Laboratory Tests 06/13/21 06:46 Vital Signs Date Time Temp Pulse Resp B/P (MAP) Pulse Ox O2 Delivery O2 Flow Rate FiO2 06/13/21 14:00 98.1 95 18 142/65 (90) 96 Room Air I&O- Last 24 Hours up to 6 AM 06/13/21 06:00 Intake Total 1010 ml Output Total 0 ml Balance 1010 ml MARIO CUTLER DO Jun 13, 2021 16:01
[2021-06-13] MEDS ORDERED: LEVEMIR (INSULIN DETEMIR) 1 UNITS/0.01ML SC SCH (21:00)
[2021-06-13] MEDS: SIMVASTATIN 20 MG TAB PO SCH (22:05)
[2021-06-13] MEDS: GABAPENTIN 100 MG CAP PO SCH (22:05)
[2021-06-13] MEDS: ramipriL 5 MG CAP PO SCH (22:06)
[2021-06-14] MEDS: CIPROFLOXACIN 250MG TAB PO SCH (05:00)
[2021-06-14 06:00] VITALS: BP 157/71
[2021-06-14] MEDS: HumaLOG INSULIN (NovoLOG) PER UNIT SC SCH ×2 (07:30→12:48)
[2021-06-14] MEDS: ADVAIR HFA 115/21MCG INHALER INH SCH (07:43)
[2021-06-14 08:47] LABS: HEMATOCRIT 33.1 % (36.0-47.0); HEMOGLOBIN 10.2 g/dl (12.0-15.5); MEAN CORPUSCULAR HEMOGLOBIN 28.8 pg (27.0-33.0); MEAN CORPUSCULAR HGB CONC 30.8 g/dl (32.0-36.5); MEAN CORPUSCULAR VOLUME 93.5 fl (80.0-96.0); PLATELET COUNT, AUTOMATED 273 10^3/uL (150-450); RED BLOOD COUNT 3.54 10^6/uL (4.00-5.40); WHITE BLOOD COUNT 15.8 10^3/uL (4.0-10.0)
[2021-06-14] MEDS ORDERED: LEVEMIR (INSULIN DETEMIR) 1 UNITS/0.01ML SC SCH ×2 (09:00→21:00)
[2021-06-14 09:16] LABS: BLOOD UREA NITROGEN 33 MG/DL (7-18); CALCIUM LEVEL 9.2 MG/DL (8.8-10.2); CARBON DIOXIDE LEVEL 30 MEQ/L (21-32); CHLORIDE LEVEL 107 MEQ/L (98-107); CREATININE FOR GFR 0.85 MG/DL (0.55-1.30); GLOMERULAR FILTRATION RATE > 60.0 (>32); GLUCOSE, FASTING 68 MG/DL (70-100); MAGNESIUM LEVEL 2.4 MG/DL (1.8-2.4); POTASSIUM SERUM 3.6 MEQ/L (3.5-5.1); SODIUM LEVEL 140 MEQ/L (136-145)
[2021-06-14] MEDS: SERTRALINE HCL 50 MG TAB PO SCH (09:57)
[2021-06-14] MEDS: ENOXAPARIN 40MG/0.4ML SYRINGE (J1650 PER 10MG) SC SCH (09:57)
[2021-06-14] MEDS: DOCUSATE SODIUM 100MG CAPSULE PO SCH (09:57)
[2021-06-14 09:58] VITALS: BP 157/71
[2021-06-14] MEDS: MAGNESIUM OXIDE 400MG TAB (MAG-OX) PO SCH (09:58)
[2021-06-14] MEDS: NYSTATIN 100,000 UNITS/GM TOPICAL PWD 15 GM TOP SCH (09:58)
[2021-06-14] MEDS: FLUCONAZOLE 100 MG TAB PO SCH (09:58)
[2021-06-14] MEDS ORDERED: AMLO1TAB25 PO (10:33)
[2021-06-14] MEDS ORDERED: GABA-1171 PO (10:33)
[2021-06-14] MEDS ORDERED: MAGN400T2 PO (10:33)
[2021-06-14] MEDS ORDERED: FLUC100T PO (10:33)
--- NOTE | 2021-06-14 19:18 | DS.PDOC ---
Discharge Summary General Date of Admission Jun 09, 2021 at 20:00 Date of Discharge 06/14/21 Discharge Summary PROCEDURES PERFORMED DURING STAY: [None]. ADMITTING DIAGNOSES: Metabolic encephalopathy UTI HLD Hypertension Type 2 diabetes Anxiety/depression Asthma Hypomagnesemia DISCHARGE DIAGNOSES: Metabolic encephalopathy UTI HLD Hypertension Type 2 diabetes Anxiety/depression Asthma Hypomagnesemia COMPLICATIONS/CHIEF COMPLAINT: Metabolic Encephalopathy, Uti. HISTORY OF PRESENT ILLNESS: 81-year-old female with a history of dementia type 2 diabetes, hyperlipidemia, hypertension, asthma. She presented to the ER for evaluation of altered mental status. Found to have UA findings suspicious for UTI. HOSPITAL COURSE: During the hospital stay the following issue addressed Metabolic encephalopathy Patient received treatment with antibiotic therapy Most likely secondary to UTI. Currently resolved UTI I changed ceftriaxone IV to oral Cipro and fluconazole. Patient completed course of ciprofloxacin. She will be discharged with 7 days of fluconazole due to Isidra infection in the urine 1 set of blood culture was positive for gram-positive cocci, second set negative. Patient does not have fever or chills, no leukocytosis. Repeat blood culture negative. MRSA negative Type 2 diabetes Insulin sliding scale Glucose level was not optimally controlled Detemir twice daily, I increased the dose of detemir to 50 units twice daily DISCHARGE MEDICATIONS: Please see below. ALLERGIES: Please see below. PHYSICAL EXAMINATION ON DISCHARGE: VITAL SIGNS: Please see below. GENERAL APPEARANCE: NAD HEENT: no scleral icterus, no JVD, EOMI CARDIOVASCULAR: S1S2 LUNGS: Diminished lung sounds bilaterally ABDOMEN: soft & not tender w palpation MUSCULOSKELETAL: no cyanosis, no swelling INTEGUMENT: no generalized pallor NEUROLOGICAL: cranial nerve function from 2-12 intact, follows commands, speech not dysarthric LABORATORY DATA: Please see below. PROGNOSIS: Fair ACTIVITY: [As tolerated]. DIET: Cardiac DISPOSITION: 62 D/T Rehab Facility. ITEMS TO FOLLOWUP ON ON OUTPATIENT: With PCP in 3 to 5 days DISCHARGE CONDITION: [Stable]. TIME SPENT ON DISCHARGE:40 minutes. Vital Signs/I&Os Vital Signs Date Time Temp Pulse Resp B/P (MAP) Pulse Ox O2 Delivery O2 Flow Rate FiO2 06/14/21 09:58 99 157/71 06/14/21 06:00 98.8 20 93 Room Air I&O- Last 24 Hours up to 6 AM 06/14/21 06:00 Intake Total 820 ml Output Total 0 ml Balance 820 ml Laboratory Data Labs 24H Laboratory Tests 2 06/13/21 20:22: Bedside Glucose (Misc Panel) 247H 06/14/21 07:56: Bedside Glucose (Misc Panel) 70L 06/14/21 08:14: Nucleated Red Blood Cells % (auto) 0.0, Anion Gap 3L, Glomerular Filtration Rate > 60.0, Calcium Level 9.2, Magnesium Level 2.4 06/14/21 11:58: Bedside Glucose (Misc Panel) 204H CBC/BMP Laboratory Tests 06/14/21 08:14 FSBS Laboratory Tests Test 06/13/21 20:22 06/14/21 07:56 06/14/21 11:58 Range/Units Bedside Glucose (Misc Panel) 247 70 204 83-110 MG/DL Microbiology Microbiology 06/10/21 Blood Culture - Preliminary, Resulted No Growth after 72 hours. All specime... 06/10/21 Blood Culture - Preliminary, Resulted No Growth after 72 hours. All specime... 06/09/21 Urine Culture - Final, Complete Yeast Like Organism 06/09/21 Blood Culture - Final, Complete NO GROWTH AFTER 5 DAYS 06/09/21 Blood Culture - Final, Complete Staphylococcus Hominis Ssp [place] Discharge Medications Scheduled Amlodipine Besylate (Amlodipine Besylate) 10 Mg Tablet, 10 MG PO DAILY Bisoprolol/Hydrochlorothiazide (Bisoprolol-Hctz 10-6.25 mg Tab) 1 Each Tablet, 1 TAB PO DAILY, (Reported) Ferrous Sulfate (Ferosul) 325 Mg Tablet, 325 MG PO DAILY, (Reported) Fluconazole (Fluconazole) 100 Mg Tablet, 200 MG PO DAILY Gabapentin (Gabapentin) 100 Mg Capsule, 100 MG PO QHS Insulin Aspart (Novolog Flexpen) 100 Unit/1 Ml Insuln.pen, 16 UNITS SQ BID, (Reported) BREAKFAST AND DINNER Insulin Degludec (Tresiba Flextouch U-200) 200 Unit/1 Ml Insuln.pen, 96 UNITS SQ DAILY, (Reported) Insulin Human Lispro (Novolog) 100 Unit/1 Ml Vial, 18 UNITS SC DAILY, (Reported) LUNCH Magnesium Oxide (Magnesium Oxide) 400 Mg Tablet, 400 MG PO DAILY Metformin HCl (Metformin HCl ER) 500 Mg Tab.er.24h, 500 MG PO BID, (Reported) BREAKFAST AND LUNCH Metformin HCl (Metformin HCl ER) 500 Mg Tab.er.24h, 1,000 MG PO QPM, (Reported) SUPPER Ramipril (Ramipril) 10 Mg Capsule, 10 MG PO QHS, (Reported) Salmeterol/Fluticasone (Advair 250-50 Diskus) 1 Each Blst.w.dev, 1 PUFF INH BID, (Reported) Sertraline HCl (Sertraline HCl) 50 Mg Tablet, 50 MG PO DAILY, (Reported) Simvastatin (Simvastatin) 20 Mg Tablet, 20 MG PO QHS, (Reported) Scheduled PRN Levalbuterol Tartrate (Levalbuterol Tartrate Hfa) 15 Gm Hfa.aer.ad, 2 PUFFS INH QID PRN for SHORTNESS OF BREATH, (Reported) Allergies Coded Allergies: aspirin (Verified Allergy, Unknown, 09/07/19) codeine (Verified Adverse Reaction, Mild, VOMITING, 08/06/20) MARIO CUTLER DO Jun 14, 2021 19:18
== END 2021-06-14 16:23 | DRG 689 ==
LOC: EDBD 16:09 → M ED 16:09 → M ED INP 20:00 → M PCU 06-10 00:52 → M MSPAV 06-12 11:53
PROVIDERS: ADMIT Internal Medicine; ATTEND Internal Medicine
DX: N39.0 Urinary tract infection, site not specified (principal); G93.41 Metabolic encephalopathy; E78.5 Hyperlipidemia, unspecified; I10 Essential (primary) hypertension; F41.9 Anxiety disorder, unspecified; D32.9 Benign neoplasm of meninges, unspecified; J45.909 Unspecified asthma, uncomplicated; E83.42 Hypomagnesemia; F03.90 Unspecified dementia, unspecified severity, without behavioral disturbance, psychotic disturbance, mood disturbance, and anxiety; Z90.79 Acquired absence of other genital organ(s); Z20.822 Contact with and (suspected) exposure to COVID-19; Z87.891 Personal history of nicotine dependence; Z79.4 Long term (current) use of insulin; Z79.899 Other long term (current) drug therapy; Z79.84 Long term (current) use of oral hypoglycemic drugs; Z88.5 Allergy status to narcotic agent; Z88.6 Allergy status to analgesic agent; E11.65 Type 2 diabetes mellitus with hyperglycemia

== ENCOUNTER 2021-07-05 17:58 | Emergency (ER) | payer MEDICARE ==
[~2021-07-05] VITALS: Ht 160 cm; Wt 60.5 kg
[~2021-07-05 17:58] MED LIST changes: +AMLO1TAB25 PO; +FLUC100T PO; +GABA-1171 PO; +MAGN400T2 PO; +METF-838 PO
--- OUTSIDE RECORDS SUMMARY | 2021-07-05 18:13 | CCD ---
Author Author [facility] Organization [facility] Address Unknown Phone Unavailable Care Team Providers Care Senior Product Marketing Manager Name Role Phone NO, PCP Unavailable Unavailable LePine, M Lorenza CLAM SHOVEL OPERATOR Unavailable Unavailable LePine, M Lorenza CLAM SHOVEL OPERATOR Unavailable Unavailable LePine, M Lorenza CLAM SHOVEL OPERATOR Unavailable Unavailable LePine, M Lorenza CLAM SHOVEL OPERATOR Unavailable Unavailable LePine, M Lorenza CLAM SHOVEL OPERATOR Unavailable Unavailable LePine, M Lorenza CLAM SHOVEL OPERATOR Unavailable Unavailable LePine, M Lorenza CLAM SHOVEL OPERATOR Unavailable Unavailable LePine, M Lorenza CLAM SHOVEL OPERATOR Unavailable Unavailable LePine, M Lorenza CLAM SHOVEL OPERATOR Unavailable Unavailable LePine, M Lorenza CLAM SHOVEL OPERATOR Unavailable Unavailable LePine, M Lorenza CLAM SHOVEL OPERATOR Unavailable Unavailable LePine, M Lorenza CLAM SHOVEL OPERATOR Unavailable Unavailable LePine, M Lorenza CLAM SHOVEL OPERATOR Unavailable Unavailable LePine, M Lorenza CLAM SHOVEL OPERATOR Unavailable Unavailable LePine, M Lorenza CLAM SHOVEL OPERATOR Unavailable Unavailable LePine, M Lorenza CLAM SHOVEL OPERATOR Unavailable Unavailable LePine, M Lorenza CLAM SHOVEL OPERATOR Unavailable Unavailable LePine, M Lorenza CLAM SHOVEL OPERATOR Unavailable Unavailable LePine, M Lorenza CLAM SHOVEL OPERATOR Unavailable Unavailable LePine, M Lorenza CLAM SHOVEL OPERATOR Unavailable Unavailable LePine, M Lorenza CLAM SHOVEL OPERATOR Unavailable Unavailable LePine, M Lorenza CLAM SHOVEL OPERATOR Unavailable Unavailable LePine, M Lorenza CLAM SHOVEL OPERATOR Unavailable Unavailable LePine, M Lorenza CLAM SHOVEL OPERATOR Unavailable Unavailable LePine, M Lorenza CLAM SHOVEL OPERATOR Unavailable Unavailable LePine, M Lorenza CLAM SHOVEL OPERATOR Unavailable Unavailable LePine, M Lorenza CLAM SHOVEL OPERATOR Unavailable Unavailable LePine, M Lorenza CLAM SHOVEL OPERATOR Unavailable Unavailable LePine, M Lorenza CLAM SHOVEL OPERATOR Unavailable Unavailable LePine, M Lorenza CLAM SHOVEL OPERATOR Unavailable Unavailable LePine, M Lorenza CLAM SHOVEL OPERATOR Unavailable Unavailable LePine, M Lorenza CLAM SHOVEL OPERATOR Unavailable Unavailable LePine, M Lorenza CLAM SHOVEL OPERATOR Unavailable Unavailable LePine, M Lorenza CLAM SHOVEL OPERATOR Unavailable Unavailable LePine, M Lorenza CLAM SHOVEL OPERATOR Unavailable Unavailable LePine, M Lorenza CLAM SHOVEL OPERATOR Unavailable Unavailable LePine, M Lorenza CLAM SHOVEL OPERATOR Unavailable Unavailable LePine, M Lorenza CLAM SHOVEL OPERATOR Unavailable Unavailable LePine, M Lorenza CLAM SHOVEL OPERATOR Unavailable Unavailable LePine, M Lorenza CLAM SHOVEL OPERATOR Unavailable Unavailable LePine, M Lorenza CLAM SHOVEL OPERATOR Unavailable Unavailable LePine, M Lorenza CLAM SHOVEL OPERATOR Unavailable Unavailable LePine, M Lorenza CLAM SHOVEL OPERATOR Unavailable Unavailable LePine, M Lorenza CLAM SHOVEL OPERATOR Unavailable Unavailable LePine, M Lorenza CLAM SHOVEL OPERATOR Unavailable Unavailable LePine, M Lorenza CLAM SHOVEL OPERATOR Unavailable Unavailable LePine, M Lorenza CLAM SHOVEL OPERATOR Unavailable Unavailable LePine, M Lorenza CLAM SHOVEL OPERATOR Unavailable Unavailable LePine, M Lorenza CLAM SHOVEL OPERATOR Unavailable Unavailable LePine, M Lorenza CLAM SHOVEL OPERATOR Unavailable Unavailable LePine, M Lorenza CLAM SHOVEL OPERATOR Unavailable Unavailable LePine, M Lorenza CLAM SHOVEL OPERATOR Unavailable Unavailable LePine, M Lorenza CLAM SHOVEL OPERATOR Unavailable Unavailable LePine, M Lorenza CLAM SHOVEL OPERATOR Unavailable Unavailable LePine, M Lorenza CLAM SHOVEL OPERATOR Unavailable Unavailable LePine, M Lorenza CLAM SHOVEL OPERATOR Unavailable Unavailable PICKERAL JR, J JOON PA-C [...] PICKERAL JR, J JOON PA-C Unavailable Unavailable TURRIN, REN Unavailable Unavailable TURRIN, REN Unavailable Unavailable TURRIN, REN Unavailable Unavailable TURRIN, REN Unavailable Unavailable Luke Bills MD Unavailable Unavailable Luke Bills MD Unavailable Unavailable Luke Bills MD Unavailable Unavailable SanjuLuke MD Unavailable Unavailable Reed CityLuke MD Unavailable Unavailable SanjuLuke MD Unavailable Unavailable Reed CityLuke MD Unavailable Unavailable Reed CityLuke MD Unavailable Unavailable SanjuLuke MD Unavailable Unavailable [place] CityLuke MD Unavailable Unavailable [place]Luke MD Unavailable Unavailable [place]Luke MD Unavailable Unavailable [place]Luke MD Unavailable Unavailable [place]Luke MD Unavailable Unavailable [place]Luke MD Unavailable Unavailable [place]Luke MD Unavailable Unavailable [place]Luke MD Unavailable Unavailable [place]Luke MD Unavailable Unavailable SanjuLuke MD Unavailable Unavailable SanjuLuke MD Unavailable Unavailable [place]Luke MD Unavailable Unavailable [place]Luke MD Unavailable Unavailable [place]Luke MD Unavailable Unavailable [place]Luke MD Unavailable Unavailable SanjuLuke MD Unavailable Unavailable [place]Luke MD Unavailable Unavailable SanjuLuke MD Unavailable Unavailable SanjuLuke MD Unavailable Unavailable SanjuuLke MD Unavailable Unavailable SanjuLuke MD Unavailable Unavailable SanjuLuke MD Unavailable Unavailable SanjuLuke MD Unavailable Unavailable [place]Luke MD Unavailable Unavailable [place]Luke MD Unavailable Unavailable [place]Luke MD Unavailable Unavailable SanjuuLke MD Unavailable Unavailable [place]Luke MD Unavailable Unavailable SanjuLuke MD Unavailable Unavailable [place]Luke perdomo MD Unavailable Unavailable [place]Luke MD Unavailable Unavailable [place]Luke MD Unavailable Unavailable SanjuLuke MD Unavailable Unavailable [place]Luke MD Unavailable Unavailable SanjuLuke MD Unavailable Unavailable [place]Luke MD Unavailable Unavailable SanjuLuke MD Unavailable Unavailable SanjuLuke MD Unavailable Unavailable [place]Luke MD Unavailable Unavailable SanjuLuke MD Unavailable Unavailable SanjuLuke MD Unavailable Unavailable [place]Luke MD Unavailable Unavailable SanjuLuke MD Unavailable Unavailable SanjuLuke MD Unavailable Unavailable SanjuLuke MD Unavailable Unavailable [place]Luke MD Unavailable Unavailable [place]Luke MD Unavailable Unavailable SanjuLuke MD Unavailable Unavailable [place]Luke MD Unavailable Unavailable SanjuLuke MD Unavailable Unavailable Luke Bills MD Unavailable Unavailable Luke Bills MD Unavailable Unavailable Luke Bills MD Unavailable Unavailable Luke Bills MD Unavailable Unavailable SanjuLuke perdomo MD Unavailable Unavailable [place]Luke perdomo MD Unavailable Unavailable SanjuLuke perdomo MD Unavailable Unavailable [place]Luke perdomo MD Unavailable Unavailable SanjuLuke perdomo MD Unavailable Unavailable SanjuLuke perdomo MD Unavailable Unavailable SanjuLuke perdomo MD Unavailable Unavailable SanjuLuke perdomo MD Unavailable Unavailable SanjuLuke perdomo MD Unavailable Unavailable [place]Luke perdomo MD Unavailable Unavailable Luke Bills MD Unavailable Unavailable SanjuLuke perdomo MD Unavailable Unavailable Luke Bills MD Unavailable Unavailable SanjuLuke perdomo MD Unavailable Unavailable [place]Luke perdomo MD Unavailable Unavailable SanjuLuke perdomo MD Unavailable Unavailable SanjuLuke perdomo MD Unavailable Unavailable [place] CityLuke perdomo MD Unavailable Unavailable [place] CityLuke perdomo MD Unavailable Unavailable Luke Bills MD Unavailable Unavailable Luke Bills MD Unavailable Unavailable Luke Bills MD Unavailable Unavailable Luke Bills MD Unavailable Unavailable Alvares, Karthikeyan PA Unavailable Unavailable Alvares, Karthikeyan PA Unavailable Unavailable Alvares, Karthikeyan PA Unavailable Unavailable Alvares, Karthikeyan PA Unavailable Unavailable Alvares, Karthikeyan PA Unavailable Unavailable Alvares, Karthikeyan PA Unavailable Unavailable Alvares, Karthikeyan PA Unavailable Unavailable Alvares, Karthikeyan PA Unavailable Unavailable Alvares, Karthikeyan PA Unavailable Unavailable Alvares, Karthikeyan PA Unavailable Unavailable Alvares, Karthikeyan PA Unavailable Unavailable Alvares, Karthikeyan PA Unavailable Unavailable Alvares, Karthikeyan PA Unavailable Unavailable JOSE ROMEO Unavailable Unavailable Joycelyn TELLES MD Unavailable Unavailable [...] Unavailable Unavailable Joycelyn TELLES MD Unavailable Unavailable ABISAI, Joycelyn MEJIA MD Unavailable Unavailable ABISAI, Joycelyn MEJIA MD Unavailable Unavailable ABISAI, Joycelyn MEJIA MD Unavailable Unavailable SHANTANU, A AFSHIN DO [...] is protected by Article 27-F of the [place] State Public Health law. If you continue you may have access to information: Regarding HIV / AIDS; Provided by facilities licensed or operated by the [facility] Office of Mental Health; or Provided by the [facility] Office for People With Developmental Disabilities. If such information is present, then the following [facility] mandated warning applies: This information [...] law may result in a fine or mcc sentence or both. A general authorization for the release of medical or other information is NOT sufficient authorization for further disc losure. Allergies and Adverse Reactions Type Description Substance Reaction Status Data Source(s ) Drug allergy CODEINE CODEINE [facility] Propensity to adverse reactions ASA (aspirin) ASA (aspirin) [facility] Family History Family Member Name Family Member Gender Family Member Status Date o f Status Description Data Source(s) Unknown Unknown Problem [facility] ([facility]) Four brothers all alive. One has diabete s and RA. She had 3 sisters. Two have from complications of diabetes Encounters Encounter Providers Location Date Indications Data Source(s ) Outpatient Attender: Karthikeyan Alvares PAAt tender: VELIA TELLES MDConsultant: JOSE ROMEOConsultant: PCP NO 06/30/2021 01:40:00 AM EST - 07/01/2021 02:15:00 PM [facility] Patient discharged. Emergency Attender: REN SOLOConsultant: ALCIDES ROMEOConsultant: PCP NO 06/27/2021 06:06:00 AM EDT - 06/27/2021 01:00:00 PM T [facility] Patient discharged. Outpatient Attender: Andrew Malik 0 05/03/2021 02:45:00 PM EDT [facility] ([facility] ) Emergency Attender: VELIA TELLES MDConsultant: PCP NO 03/05/2021 03:55:00 PM EDT - 03/05/2021 06:11:00 PM T [facility] Patient discharged. Outpatient Attender: JOON Malik 0 02/20/2021 01:40:00 PM EDT [facility] ([facility] ) Outpatient Attender: Andrew Malik 0 12/31/2020 11:40:00 AM EDT [facility] ([facility] ) Outpatient Attender: Andrew Malik 0 09/24/2020 09:40:00 AM EST [facility] ([facility] ) Outpatient Attender: Lorenza Hattie YANDY Malik 09/11 10:00:00 AM EST [facility] ([facility] ) Outpatient Attender: Andrew Malik 0 08/30/2020 08:20:00 AM EST [facility] ([facility] ) Outpatient Attender: Andrew Malik 0 05/22/2020 10:00:00 AM EDT [facility] ([facility] ) <td ID="encounterTypeDescriptionID0">1 Y ear Follow-Up</td><td>Afshin Sosa DO</td><td>Inderjit Valentine MD [facility]</td><td>05/09/2020</td><td>12:17PM</td><td>1:37PM</td><td><content ID="encounterDiagnosisID0-0">Dry Eye Syndrome</content>, <content ID="encounterDiagnosisID0-1">Pseudophakia</content>, <content ID="encounterDiagnosisID0-2">Assessment of Taking Medication For Diabetes Long- term Use of Insulin</content>, <content ID="encounterDiagnosisID0-3">Vitreous Disorders Degeneration</content>, <content ID="encounterDiagnosisID0-4">Diabetes Mellitus Type 2 Without Complication</content></td>Outpatient Attender: AFSHIN Haley MD [facility] 05/09/2020 12:17:00 PM EDT - 05/09/2020 01:37:00 PM EDT Diabetes Mellitus Type 2 Without Complic ationVitreous Disorders DegenerationAssessment of Taking Medication For Diabetes Long-term Use of InsulinPseudophakiaDry Eye SyndromeDiabetes Mellitus Type 2 Without Complication Vitreous Disorders DegenerationAssessment of Taking Medication For Diabetes Long-term Use of InsulinPseudophakiaDry Eye Syndrome STEPHANIE (Inderjit Interiano MD [facility]) Diabetes Mellitus Type 2 Without Complic ation [...] Complete: YESThis Data wa s Submitted to [facility] Via [employer]. COVID-19 VACCINE Moderna 10/26/2020 12:00:00 AM EST completed NYSIIS Vaccine Series Complete: NOThis Data was Submitted to [facility] [employer]. Influenza, injectable, MDCK, preservative free, radha valent 05/22/2020 10:58:00 AM EDT completed [facility]) Medications Medication Brand Name Start Date Product Form Dose Route Admi nistrative Instructions Pharmacy Instructions Status Indications Reaction Description Data Source(s) 100 mg 06/15/2021 12:00:00 AM EDT capsule 30 TAKE ONE CAPSULE BY MOUTH DAILY AT BEDTIME TAKE ONE CAPSULE BY MOUTH DAILY AT BEDTIME SOLD: 06/16/2021 [facility] 400 mg (241.3 mg magnesium) 06/15/2021 12:00:00 AM EDT table t 30 TAKE ONE TABLET BY MOUTH EVERY DAY TAKE ONE TABLET BY MOUTH EVERY DAY SOLD: 06/16/2021 [facility] 200 mg 06/15/2021 12:00:00 AM EDT tablet 7 TAKE ONE TABLET BY MOUTH EVERY DAY FOR 7 DAYS TAKE ONE TABLET BY MOUTH EVERY DAY FOR 7 DAYS SOLD: 06/16/2021 [facility] 10 mg 06/15/2021 12:00:00 AM EDT tablet 30 TAKE ONE TABLET BY MOUTH EVERY DAY TAKE ONE TABLET BY MOUTH EVERY DAY SOLD: 06/16/2021 [facility] BLOOD-GLUCOSE METER 06/04/2021 12:00:00 AM EDT misc 1 USE DIRECTED USE DIRECTED SOLD: 06/04/2021 [facility] 33 gauge 06/04/2021 12:00:00 AM EDT misc 200 TEST TWICE A DAY TEST TWICE A DAY SOLD: 06/04/2021 [facility] BLOOD SUGAR DIAGNOSTIC 06/04/2021 12:00:00 AM EDT strip 200 TEST TWICE A DAY TEST TWICE A DAY SOLD: 06/04/2021 [facility] Ramipril 10 MG Oral Capsule [...] 2 TABS` WITH SUPPER DAILY SOLD: 05/01/2021 [facility] 24 HR Metformin hydrochloride 500 MG Extended Release Oral Tablet Metformin HCL ER 02/20/2021 12:00:00 AM EDT ORAL completed [facility] ([facility]) 45 mcg/actuation 01/26/2021 12:00:00 AM EDT [...] UNITS UNDER THE SKIN ONCE DAILY SOLD: 06/16/2021 [facility] 200 unit/mL (3 mL) 07/11/2020 [...] Of Flu Vaccine 05/22/2020 12:00:00 AM EDT [facility] NABIL ([facility]) Medication administered onsite 5-325 mg 05/22/2020 [...] TH SUPPER DAILY SOLD: 10/09/2020 [facility] Metformin hydrochloride 500 MG Oral [...] IN THE P.M. SOLD: 07/24/2020 [facility] 300 mg 10/18/2019 12:00:00 AM EST capsule 180 TAKE 2 CAPSULES BY MOUTH AT BEDTIME TAKE 2 CAPSULES BY MOUTH AT BEDTIME SOLD: 07/10/2020 [facility] 20 mg 10/07/2019 12:00:00 AM [...] MOUTH EVERY DAY SOLD: 05/27/2020 [facility] 200 unit/mL (3 mL) 06/14/2019 [...] type / Coverage type Policy ID Covered alliance party ID Covered alliance party's relationship to barboza Policy Barboza Plan Information [employer] Commercial [id number] Self [id number] [employer] Commercial [id number] Self [id number] [employer] Commercial [id number] Self [id number] [employer] Medicare Commercial [id number] Self [id number] [employer] Medicare Commercial Advantage Plus [id number] Self Advantage Plus [id number] WELLCARE [id number] SP [id number] TODAYS OPTIONS [id number] SP [id number] WELLCARE [id number] SP [id number] Wellcare/Todays Optr Commercial [id number] Self [id number] WELLCARE MEDICARE [id number] [place] 06 [id number] TOD[employer] OPTIONS/[place] O [id number] S [id number] WELLCARE -O/P [id number] 18 [id number] WELLCARE O [id number] S [id number] MEDICARE [id number] SP [id number] Problems, Conditions, and Diagnoses Code Display Name Description Problem Type Effective Dates Data Source(s) Z794 half-way (current) use of insulin half-way (cu rrent) use of insulin Diagnosis 06/27/2021 06:06:00 AM EDT [facility] I10 Essential (primary) hypertension Essential (primary) h ypertension Diagnosis 06/27/2021 06:06:00 AM EDT [facility] G52999 Type 2 diabetes mellitus with hypoglycem ia without coma Type 2 diabetes mellitus with hypoglycemia without coma Diagnosis 06/27/2021 06:06:00 AM EDT [facility] R4182 Altered mental status, unspecified Altered menta l status, unspecified Diagnosis 06/27/2021 06:06:00 AM EDT [facility] E119 Type 2 diabetes mellitus without complic ations Type 2 diabetes mellitus without complications Diagnosis 03/05/2021 03:55:00 PM EDT [facility] R531 Weakness Weakness Diagnosis 03/05/2021 03:55:00 PM ED T [facility] Surgeries/Procedures Procedure Description Date Indications Data Source(s) OFFICE OUTPATIENT VISIT 25 MINUTES 05/03/2021 12:00:00 AM EDT [facility] ([facility]) Trans Care SRV W/I 14D Of DC, Comm W/I 2 Dys Med Rec 02/20/2021 12:00:00 AM EDT [facility] ([facility] ) Chronic Care MGMT 20 Mins Clinical Staff Time Per Calendar M [facility] 01/08/2021 12:00:00 AM EDT [facility] ([facility] ) OFFICE OUTPATIENT VISIT 25 MINUTES 12/31/2020 12:00:00 AM EDT [facility] ([facility]) Chronic Care MGMT 20 Mins Clinical Staff Time Per Calendar M [facility] 12/04/2020 12:00:00 AM EDT [facility] ([facility] ) Chronic Care MGMT 20 Mins Clinical Staff Time Per Calendar M [facility] 11/09/2020 12:00:00 AM EDT [facility] ([facility] ) Chronic Care Management Services Ea Addl 20 Min 2020 12:00:00 AM EST [facility] ([facility]) Chronic Care MGMT 20 Mins Clinical Staff Time Per Calendar M [facility] 10/01/2020 12:00:00 AM EST [facility] ([facility] ) OFFICE OUTPATIENT VISIT 25 MINUTES 09/24/2020 12:00:00 AM EST [facility] ([facility]) Impacted Cerumen Irrigat/Lavage 09/11/2020 12:00:00 AM EST [facility] ([facility]) OFFICE OUTPATIENT VISIT 15 MINUTES 09/11/2020 12:00:00 AM EST [facility] ([facility]) Trans Care SRV W/I 14D Of DC, Comm W/I 2 Dys Med Rec 08/30/2020 12:00:00 AM EST [facility] ([facility] ) Diabetic Retinal Eye Exam 05/09/2020 12:00:00 AM EDT [facility] ([facility]) Intermediate Eye Exam Established Patient Intermediate Eye Exam Established Patient 05/09/2020 12:00:00 AM EDT STEPHANIE (Miguel id A Nora Interiano MD [facility]) Intermediate Eye Exam Established Patient Intermediate Eye Exam Established Patient 05/09/2020 12:00:00 AM EDT STEPHANIE (Miguel id A Nora Interiano MD [facility]) Results ID Date Data Source [id number] 07/01/2021 11:04:00 AM [facility] NOT DETECTEDNOT DETECTED{ PROC EDURAL CONTROL VALID KIT LOT # _[id number] 07/01/21.1104.MRW. . . KIT EXP DATE _01.24.22 07/01/21.1104.MRW. . . NORMAL RANGE IS NOT DETECTEDThe COVID-19 assay is a rapid molecular in vitro diagnostic testutilizing an isothermal nucleic acid amplification technology for thequalitative detection of nucleic acid from the SARS-CoV-2 viral RNA in directnasal or nasopharyngeal swabs. Testing should be performed within the first 7days of the onset of symptoms.NEGATIVE RESULTS SHOULD BE TREATED PRESUMPTIVE AND, IF INCONSISTENT WITHCLINICAL SIGNS AND SYMPTOMS OR NECESSARY FOR PATIENT MANAGEMENT, SHOULD BETESTED WITH DIFFERENT AUTHORIZED OR CLEARED MOLECULAR TESTS. NEGATIVE RESULTSDO NOT PRECLUDE SARS-CoV-2 INFECTION AND SHOULD NOT BE USED THE SOLE BASISFOR PATIENT MANAGEMENT DECISIONS. Name Value Range Interpretation Code Description Data Aura rce(s) Supporting Document(s) ID Date Data Source [id number] [facility] [address] [place] [address] Phone #: ext- [phone] 06/27/2021 06:06 Patient: JAJA WEBB [facility]#: [id number] Sex: F : 1940 Age: 81yWEIGHT:65.3 kg (M) HEIGHT:60 inches (E) BMI:28.1ALLERGIES: Aspirin, Codeine PhosphateCHIEF COMPLAINT: decreased mental status, low blood sugar, diabetic, decreased mental status, low bloodsugar, diabeticDIAGNOSIS: HypoglycemiaLAB ORDERSOrder Description Priority Entered Acknowledged InitialedCBC w Diff STAT 06:31 06/27/2021 06:37 Ren Miller RN, M.D.;CMP STAT 06:31 06/27/2021 06:37 Ren Miller RN, M.D.;Lipase STAT 06:31 06/27/2021 06:37 Ren Miller RN, M.D.;Troponin-T STAT 06:31 06/27/2021 06:37 Ren Miller RN, M.D.;BNP STAT 06:31 06/27/2021 06:37 Ren Miller RN, M.D.;TSH STAT 06:31 06/27/2021 06:37 Ren Miller RN, M.D.;UA Reflex to UA STAT 08:01 06/27/2021 08:23 Kunal Doran Victoria R.N. ;DIAGNOSTIC STUDY ORDERSOrder Description Priority Entered Acknowledged InitialedChest Portable 1 STAT 06:31 06/27/2021 Ack'd: 06:38 07:12 Ren Heck RN, RN(Oxygen?(No)) Jaxon; Reason for Study: Shortness of BreathCT Head W/O Cont STAT 06:32 06/27/2021 Ack'd: 06:38 07:12 Efrain(Oxygen?(No)) Ren Solo RN, RN 2 OrderSheet [facility] [address] [place] [address] Phone #: ext- [phone] 06/27/2021 06:06 Patient: JAJA WEBB Sex: F : 1940 Age: 81y M.D.; Reason for Study: Altered Mental StatusMEDICATION/IV/DRIP/FLUID ORDERSOrder Description Priority Entered Acknowledged [id number] IV : Bolus 06:31 06/27/2021 06:45 Vfuaap456 mL, then 125 Ren Solo RNmL/hr MLe;NS IV 500 mL 10:22 06/27/2021 Ack'd: 10:22 10:27 Chau,Bolus: : Bolus 500 Chanliecco, Shanice Chau, Yvonne Yvonne R.N.mL (X1) ; R.N.GENERAL ORDERSOrder Description Priority Entered Acknowledged InitialedBlood Pressure 06:31 06/27/2021 06:37 Ren Arredondo RN, M.D.;Professional Nursing Assistant 06:31 06/27/2021 06:37 Efrain(continuous) Ren Solo RN, M.D.;EKG 06:31 06/27/2021 07:10 Ren Miller RN, M.D.;NPO 06:31 06/27/2021 06:37 Ren Miller RN, M.D.;Obtain Old EKG 06:31 06/27/2021 06:37 Ren Miller RN, M.D.;Obtain Old Records 06:31 06/27/2021 06:37 Ren Miller RN, M.D.;Oxygen (2 L/min) 06:31 06/27/2021 06:37 Efrain(NC) (Titrate to O2 Ren Solo RNSat >92%) Jaxon;Oxygen titrate to 06:31 06/27/2021 06:37 Yhwfpt81% Ren Solo RN, M.D.;Pulse oximeter 06:31 06/27/2021 06:37 Efrain(Continuous) Ren Solo RN, M.D.;Saline Lock 06:31 06/27/2021 06:37 Efrain 3 OrderSheet [facility] Department [address] [place] [address] Phone #: olo- [phone] 06/27/2021 06:06 Patient: JAJA WEBB Sex: F : 1940 Age: 81y Ren Solo RN, M.D.;Vitals 06:31 06/27/2021 06:37 Ren Miller RN, M.D.;Accucheck 06:31 06/27/2021 06:38 Ren Miller RN, M.D.;Diet: (1500 ann 07:12 06/27/2021 07:12 StevenDiabetic Diet) Efrain James RN; Erika KENDALL Verbal order per; Ren Solo M.D.Straight Cath 08:01 06/27/2021 08:21 Linda Doran Victoria R.N. ;Accucheck 08:03 06/27/2021 08:07 Linda Doran Victoria R.N. ;[Electronically signed by Yvonne Chau R.N. (13:13 06/27/2021)][Electronically signed by Shanice Roldan (15:43 06/27/2021)][Electronically signed by Ren Solo M.D. (07:17 07/01/2021)][Electronically locked by Yvonne Chau R.N. (13:13 06/27/2021)] Name Value Range Interpretation Code Description Data Aura rce(s) Supporting Document(s) ID Date Data Source [id number] 06/27/2021 06:06:00 AM EDT [facility] 1 Medication Reconciliation Report [facility] [address] [place] [address] Phone #: ext- [phone] 06/27/2021 06:06 Patient: JAJA WEBB Sex: F : 1940 Age: 81yWeight: 65.3 kgHeight/Length: 60 in.BMI: 28.1ALLERGIES: Aspirin, Codeine PhosphateThe patient's Home Medications are [...] given to the patient in the Emergency Department:D5NS IV IV Fluids bolus 500 mL, then 1000 mL/hr, administered: 06:45 06/27/2021NS [IV] IV Fluids bolus 500 mL wide open, administered: 10:27 06/27/2021The following Medications were prescribed to the patient:None. Name Value Range Interpretation Code Description Data Aura rce(s) Supporting Document(s) ID Date Data Source [id number] 06/27/2021 06:06:00 AM EDT [facility] 1 Medication Administration Record [facility] [address] [place] [address] Phone #: ext- [phone] 06/27/2021 06:06 Patient: JAJA WEBB Sex: F : 1940 Age: 81yWeight: 65.3 kgHeight/Length: 60 inBMI: 28.1ALLERGIES: Aspirin, Codeine Phosphate Date/Time Medication Administered Medication OrderedStart D5NS IV D5NS IV : Bolus 500 mL, then 10426:45 06/27/2021 Dose: IV Fluids mL/hrSteven ENOCH James Rate: 1000 mL/hr---- Bolus: 500 mLStop Dispensed: 1000 mL bag08:10 06/27/2021 Site: #1 right forearmLinda Doran R.N.Start NS [IV] NS IV 500 mL Bolus: : Bolus 40002:27 06/27/2021 Dose: IV Fluids mL (X1)Yvonne Chau RGraeme Bolus: 500 mL wide open---- Dispensed: 1000 mL bagStop Site: #1 right obygyrd03:23 06/27/2021Yvonne Chau R.N. Name Value Range Interpretation Code Description Data Aura rce(s) Supporting Document(s) ID Date Data Source [id number] 06/27/2021 06:06:00 AM EDT [facility] 1 General Instructions [facility] Emergency Department [address] [place] [address] Phone #: ext- [phone] 06/27/2021 06:06 Patient: JAJA WEBB Sex: F : 1940 Age: 81y(Electronically signed by Ren Solo M.D. 07/01/2021 07:17)Hypoglycemia without coma- associated with type 2 diabetes.INSTRUCTIONS(patient was hypoglycemic. CXR EKG troponin as well as the Urinalysis is normal. please monitor the ptand give her diabetic medication afte r she eats).Your Current Medications: Your current home medications have been reviewed.CONTINUE TAKING THE FOLLOWING MEDICATIONS:Advair Diskus Inhalation : Aerosol Powder Breath Activated 100-50 mcg/dose, 2x a day.Bisoprolol Fumarate Oral : Tablet 5 mg, 1 tablet daily.Gabapentin Oral : Tablet 600 mg, 1 tablet, at bedtime.metFORMIN HCl Oral : Tablet 500 mg, 2x a day.NovoLOG Subcutaneous : Solution 100 unit/mL, 14 units 3x a day.Ramipril Oral : Capsule 2.5 mg, daily.Sertraline HCl Oral : Tablet 25 mg, daily.Tresiba FlexTouch Subcutaneous : Solution Pen-injector 100 unit/mL, 86 units.Follow-up:Follow up with your healthcare provider. 2 General Instructions [facility] Emergency Department [address] [place] [address] Phone #: gza- [phone] 06/27/2021 06:06 Patient: TRACEY JAJA Sex: F : 1940 Age: 81y(Electronically signed by Shanice Roldan 06/27/2021 15:43) Name Value Range Interpretation Code Description Data Aura rce(s) Supporting Document(s) ID Date Data Source [id number] 06/27/2021 06:06:00 AM EDT [facility] 1 Clinical Report - Nurses [facility] Department [address] [place] [address] Phone #: ext- [phone] 06/27/2021 06:06 Patient: JAJA WEBB Sex: F : 1940 Age: 81yTRIAGEArrived by EMS. Historian: EMS.Triage time: 06:08 06/27/2021.Chief Complaint: ("Breathing Funny").( EMS called to senior care, Pt was getting Glucagon when EMS arrived. Initial FSBS 53, Recheck was81. No report rec'd from [facility]EMS Treatment B[employer] PROPERTY MANAGER:See EMS report. --06:06/27/21 Juju James R.N.Acuity: LEVEL 2. --06:06/27/21 Juju James R.N.06:06/27/21. BP: 97/50. MAP: 65. HR: 65. RR: 20. O2 saturation: 95%. Temp: 98 F. Pain level nowunable to obtain. --06:06/27/21 Juju James R.N.Weight: 65.3 kg measured. Height/Length: 60 inches Estimated. BMI: 28.1. --06:06/27/21 Juju Loomis R.N.MedicationsAdvair Diskus Inhalation (Aerosol Powder Breath Activated 100-50 mcg/dose), 2x a day. Bisoprolol Fumarate Oral (Tablet 5 mg) 1 tablet, daily. Gabapentin Oral (Tablet 600 mg) 1 tablet, at bedtime. metFORMIN HCl Oral (Tablet 500 mg), 2x a day. NovoLOG Subcutaneous (Solution 100 unit/mL) 14 units, 3x a day. Ramipril Oral (Capsule 2.5 mg), daily. Sertraline HCl Oral (Tablet 25 mg), daily. Tresiba FlexTouch Subcutaneous (Solution Pen-injector 100 unit/mL) 86 units. --09:06/27/21 Linda Doran R.N.AllergiesAspirin.Codeine Phosphate. --:06/27/21 Linda Doran R.N.PROBLEMS:Weakness.Hypertension.Diabetes Mellitus. --09:06/27/21 Linda Doran R.N. 2 Clinical Report - Nurses [facility] Department [address] [place] [address] Phone #: ext- [phone] 06/27/2021 06:06 Patient: JAJA WEBB Sex: F : 1940 Age: 81y ADDITIONAL SURGERIES: Unknown. --09:12 06/27/21 Linda Doran R.N. History SOCIAL HX: Unknown if ever smoked. Alcohol use: unable to obtain. Drug use: unable to obtain due to patient condition. Unable to offer HIV testing due to the patient's condition and hepatitis C testing due to the patient's condition. Unknown if she has traveled outside the [place] Infectious disease exposure: Screening unobtainable. SELF HARM ASSESSMENT: Self harm assessment unable to obtain due to patient condition. ABUSE ASSESSMENT: No report of abuse. FALL RISK ASSESSMENT: Fall risk assessment completed. Fall interventions initiated. Side rails up x2. Bed in low position. Brakes on. Patient visible from nurses' station. Call light in reach of patient. --06:17 06/27/21 Juju James R.N. SOCIAL HX: The patient has not traveled outside the [place] Infectious disease exposure: No infectious disease exposure. --13:13 06/27/21 Yvonne Chau R.N.NURSING PROGRESS NOTES06:45 06/27/2021 Site #1 started via IV in the right forearm with an 20g angiocath, with aseptic techniqueand good blood return; one attempt. Blood drawn: rainbow set. Saline lock flushed with 10 mL saline.--06:45 06/27/21 Efrain James RN 06:45 06/27/2021 Started bag #1 1000 mL IV Fluids D5NS IV; bolus of 500 mL then at 1000 mL/hr via site #1 via IV pump. Allergies verified and confirmed 5 rights. IV patency established. IV site checked: no pain, redness, or swelling. IV flushed thoroughly pre- and post-medication administration. Information reviewed with patient including reason for taking this medication, signs of allergic reaction and precautions. Verbalizes understanding. --06:45 06/27/21 Efrain James RN Patient transported to radiology and CT by stretcher with radiology orderly. Call light placed in reach. Bed placed in lowest position. Brakes of bed on. --06:54 06/27/21 Juju James R.N. ( Call placed X2 to obtain report from [facility]. Spoke with Nurse Mckeon who stated that pt is new there and she "Doesn't know anything about her" Was Talking and alert around midnight when she she saw prior. EMS called and they state that they do not have any pages of the transfer information. Requested [facility] to Fax or deliver pt's PMH and Med list, etc to the ED.). --06:56 06/27/21 Juju James R.N. Finger stick glucose: 309; performed by nurse; result shown to the ED physician. --08:08 06/27/21 Linda Doran R.N. 08:10 06/27/2021 IV Fluids D5NS IV via IV site #1 Discontinued: discontinued. Total amount infused: 600 3 Clinical Report - Nurses [facility] [address] [place] [address] Phone #: ext- [phone] 06/27/2021 06:06 Patient: TRACEY JANUARY Sex: F : 1940 Age: 81y mL. IV patency established. IV site checked: no pain, redness, or swelling. IV flushed thoroughly. --08:10 06/27/21 Linda Doran R.N. In/out catheterization placed in ED. Reason for indwelling catheter: critical need to monitor intake and output. During procedure hand hygiene observed and sterile equipment and aseptic technique used. Return of 500 mL urine. She tolerated procedure well. Patient ID band checked for patient name and birthdate: patient confirmed. Instructions provided to collect clean catch urine and patient verbalized understanding. Clean catch urine collected; sample sent to lab for urinalysis. Specimen labeled in the presence of the patient. --08:22 06/27/21 Linda Doran R.N. Finger stick glucose: 269; performed by nurse; result shown to the ED physician. --09:36 06/27/21 Linda Doran R.N. 09:38 06/27/21. BP: 103/50. HR: 94. RR: 17. O2 saturation: 100%. --09:39 06/27/21 Josiah design/animation instructorSydneeyPATRICIA Tech1 10:27 06/27/2021 Started bag #1 1000 mL IV Fluids NS; bolus of 500 mL wide open via site #1 via IV pump. Allergies verified and confirmed 5 rights. IV patency established. IV site checked: no pain, redness, or swelling. IV flushed thoroughly pre- and post-medication administration. Information reviewed with patient including reason for taking this medication, signs of allergic reaction and precautions. Verbalizes understanding. --10:27 06/27/21 Yvonne Chau R.N. 10:39 06/27/21. BP: 115/54. MAP: 74. HR: 102. RR: 17. O2 saturation: 96%. --10:40 06/27/21 Salinas Terry 11:23 06/27/2021 IV Fluids NS via IV site #1 Discontinued: bag #1 infused. Total amount infused: 500ml mL. IV patency est ablished. IV site checked: no pain, redness, or swelling. IV flushed thoroughly. --11:23 06/27/21 Yvonne Chau R.N. Finger stick glucose: 235 mg/dL; performed by nurse; result shown to the ED physician. --12:18 06/27/21 Yvonne Chau R.N. 12:19 06/27/21. BP: 100/44. MAP: 62. HR: 63. RR: 17. O2 saturation: 92%. --12:20 06/27/21 Sal[place] Terry 12:49 06/27/2021 Site #1 removed upon discharge. Catheter intact. Bandage applied. --12:49 06/27/21 Yvonne Chau R.N.DISPOSITION / DISCHARGE late entry - 13:00 06/27/21. Departure time: late entry - 13:00 06/27/2021. Emmanuel Coma Scale: 15- eyes open- spontaneous (4); best verbal response- oriented (5); best motor response- obeys commands (6). Condition at departure: improved and stable. Transported via stretcher by EMS with mask. Report was given to a nurse via a phone call. (Desirae KENDALL [facility]). --13:12 06/27/21 Yvonne Chau R.N. 4 Clinical Report - Nurses [facility] [address] [place] [address] Phone #: ext- [phone] 06/27/2021 06:06 Patient: TRACEY JANUARY Sex: F : 1940 Age: 81y 1 3:00 06/27/21. BP: 112/62. MAP: 78. HR: 66. RR: 18. O2 saturation: 97% on room air. Temp: 98 F. Pain level now: 0/10. --13:12 06/27/21 Yvonne Chau R.N.Locked/Released at 06/27/2021 13:13 by Yvonne Chau R.N. Name Value Range Interpretation Code Description Data Aura rce(s) Supporting Document(s) ID Date Data Source [id number] 06/27/2021 06:06:00 AM EDT [facility] 1 Clinical Report - Physicians/Mid Levels [facility] Emergency Department [address] [place] [address] Phone #: ext- [phone] 06/27/2021 06:06 Patient: JAJA WEBB Sex: F : 1940 Age: 81y Time Seen: 06:17 06/27/2021; initial patient contact. Arrived- By ambulance. Historian- EMS personnel. History limited by vague historian.HISTORY OF PRESENT ILLNESS Chief Complaint: DECREASED MENTAL STATUS, LOW BLOOD SUGAR and DIABETIC. This started just prior to arrival and is still present but is better now. It was gradual in onset and has been constant. The patient is described as having decreased responsiveness. senior care resident. Prior to arrival, the dextro stick was measured by nurses and found to be low (43). Medication was given prior to arrival by nurses (glucagon). The patient has had weakness. Usually is alert and oriented X3. ([place], we [place] poor Hx from [place], pt had AMS, BS was 43 prior to EMS arrival, they were giving her glucagon, EMS got 53, and pt was becoming more alert; we have no Hx on this pt; pt has DNR status). Recent medical care: Not recently seen/assessed.REVIEW OF SYSTEMSNo fever, headache, head injury, chest pain or difficulty breathing. No cough, sputum production, blurredvision, abdominal pain or nausea. No diarrhea, skin rash, joint pain, vomiting or back pain. All othersystems reviewed and are negative.PAST HISTORYSee nurses notes. Problems: Hypertension. Diabetes Mellitus. Additional Surgeries: Unknown.SOCIAL HISTORYSmoker - current status unknown. No alcohol use or drug use. Resides in a jail.ADDITIONAL NOTESThe nursing notes have been reviewed with agreement regarding the chief complaint, HPI, ROS, PMH andpatient medications and allergies.PHYSICAL EXAMVital Signs: 06/27/2021 06:09 BP: 97/50. MAP: 65. HR: 65. RR: 20. O2 saturation: 95%. Temp: 98 F. 2 Clinical Report - Physicians/Mid Levels [facility] Emergency Department [address] [place] [address] Phone #: ext- [phone] 06/27/2021 06:06 Patient: JAJA WEBB [facility]#: [id number] Sex: F : 1940 Age: 81y Have been reviewed. Hypotensive. Oxygen saturation normal. Appearance: No ac shayan distress. (pt seems confused, starring straight out). Head: Head atraumatic. Eyes: Pupils equal, round and reactive to light. ENT: Airway intact. Mildly dry mucous membranes present. Neck: Normal inspection. Neck supple. CVS: Normal heart rate and rhythm. Heart sounds normal. Pulses normal. Respiratory: No respiratory distress. Mildly decreased air movement in the bases bilaterally. Painless inspiration. Abdomen: Soft and nontender. No organomegaly. Back: Normal inspection. Skin: Skin warm and dry. Normal skin color. No rash. Normal skin turgor. Extremities: Extremities exhibit normal ROM. No lower extremity edema. Neuro: Mildly altered mental status: confused and disoriented to time. Patient slow to respond. Eyes open- spontaneous. Best verbal response- confused. Best motor response- localizing. Speech normal. No motor deficit.LABS, X-RAYS, AND EKGEKG: No acute process. No acute ischemia. Normal EKG. Normal sinus rhythm. Rate: 61/min.Normal ST and T waves. Prior EKG unavailable. The study has been interpreted contemporaneously byme. The EKG appears to be a good tracing. Interpretation time: 06:44 06/27/2021.Bedside Tests: Glucose normal - 124 (performed at bedside).PROGRESS AND PROCEDURESCourse of Care: 07:05 06/27/21. care transferred Dr. Roldan at shift change 7 am. ED caretransferred. Case discussed with Dr. Roldan. Brief hx: as per H. Pending items: lab, CT / MRI resultsand xray results. Expected disposition: admit.(Electronically signed by eRn Solo M.D. 07/01/2021 07:17) Time Seen: 06:17 06/27/2021; initial patient contact. Arrived- By ambulance. Historian- EMS personnel. History limited by vague historian. Disposition decision: 11:31 06/27/2021.HISTORY OF PRESENT ILLNESS Chief Complaint: DECREASED MENTAL STATUS, LOW BLOOD SUGAR and DIABETIC. The patient is 3 Clinical Report - Physicians/Mid Levels [facility] Emergency Department [address] [place] [address] Phone #: ext- [phone] 06/27/2021 06:06 Patient: TRACEY JANUARY Sex: F : 1940 Age: 81y described as having decreased responsiveness. This started just prior to arrival and is still present but is better now. It was gradual in onset and has been constant. senior care resident. Prior to arrival, the dextro stick was measured by nurses and found to be low (43). Medication was given prior to arrival by nurses (glucagon). The patient has had weakness. Usually is alert and oriented X3. ([place], [place] from [place], pt had AMS, BS was 43 prior to EMS arrival, they were giving her glucagon, EMS got 53, and pt was becoming more alert; we have no Hx on this pt; pt has DNR status). Recent medical care: Not recently seen/assessed.REVIEW OF SYSTEMSNo fever, headache, head injury, chest pain or difficulty breathing. No cough, sputum production, blurredvision, abdominal pain or nausea. No diarrhea, skin rash, joint pain, vo miting or back pain. All othersystems reviewed and are negative.PAST HISTORYSee nurses notes. Problems: Hypertension. Diabetes Mellitus. Additional Surgeries: Unknown.SOCIAL HISTORYSmoker - current status unknown. No alcohol use or drug use. Resides in a jail.ADDITIONAL NOTESThe nursing notes have been reviewed with agreement regarding the chief complaint, HPI, ROS, PMH andpatient medications and allergies.PHYSICAL EXAMVital Signs: 06/27/2021 06:09 BP: 97/50. MAP: 65. HR: 65. RR: 20. O2 saturation: 95%. Temp: 98 F.Have been reviewed. Hypotensive. Oxygen saturation normal.Appearance: No acute distress. (pt seems confused, starring straight out).Head: Head atraumatic.Eyes: Pupils equal, round and reactive to light.ENT: Airway intact. Mildly dry mucous membranes present.Neck: Normal inspection. Neck supple.CVS: Normal heart rate and rhythm. Heart sounds normal. Pulses normal.Respiratory: No respiratory distress. Mildly decreased air movement in the bases bilaterally. Painless 4 Clinical Report - Physicians/Mid Levels [facility] Emergency Department [address] [place] [address] Phone #: [phone] ext- [phone] 06/27/2021 06:06 Patient: JAJA WEBB Sex: F : 1940 Age: 81y inspiration. Abdomen: Soft and nontender. No organomegaly. Back: Normal inspection. Skin: Skin warm and dry. Normal skin color. No rash. Normal skin turgor. Extremities: Extremities exhibit normal ROM. No lower extremity edema. Neuro: Mildly altered mental status: confused and disoriented to time. Patient slow to respond. Eyes open- spontaneous. Best verbal response- confused. Best motor response- localizing. Speech normal. No motor deficit.LABS, X-RAYS, AND EKGEKG: No acute process. No acute ischemia. Normal EKG. Normal sinus rhythm. Rate: 61/min.Normal ST and T waves. Prior EKG unavailable. The study has been interpreted contemporaneously byme. The EKG appears to be a good tracing. Interpretation time: 06:44 06/27/2021.Laboratory Tests: UA REFLEX TO UA CULTURE: (JUNO: 06/27/2021 08:40) ( MsgRcvd 06/27/2021 09:17) Final results Test Result Flag Units (Reference) UA REFLEX TO UA CULTURE URINALYSIS SOURCE R COLOR yellow (NORMAL: Yello CLARITY clear (NORMAL: Clear SPEC GRAVITY 1.015 (1.001 - 1.030 pH 5 (5 - 9) GLUCOSE NORM (NORMAL: Negat BILIRUBIN NEG (NORMAL: Negat KETONE NEG (NORMAL: Negat PROTEIN 15 (NORMAL: Negat NITRITE NEG (NORMAL: Negat BLOOD NEG (NORMAL: Negat LEUK EST NEG (NORMAL: Negat UROBILINOGEN NOR (less than 1.0 MICROSCOPIC See Below WBC 1 - 3 (NORMAL: NONE RBC 0 - 1 (NORMAL: NONE EPITHELIAL FEW (NORMAL: NONE BACTERIA 1+ SMALL (NORMAL: NONE MUCOUS Trace (NORMAL: NONE AMORPH SED RARE (NORMAL: NONE CASTS Not Indicated CRYSTALS Not Indicated YEAST None Seen CT Head W/O Cont: (JUNO: 06/27/2021 06:32) ( MsgRcvd 06/27/2021 08:34) In Progress CT HEAD W/O CONTRAST Reason(s): Altered Mental Status TRANSPORTATION: S IV? O2? Oxygen?(No) Room: ED Exam [place] HEAD W/[place] [address] PHONE: [phone] FAX: [phone] Clinical Report - Physicians/Mid Levels [facility] Department [address] [place] [address] Phone #: ext- [phone] 06/27/2021 06:06 Patient: JAJA WEBB Sex: F : 1940 Age: 81y Na me .................. : TRACEY WILKINSON Acct Number.................. : [id number] ROOM. ................. : TR-03 MR Number ................... : [id number] Stay type ............. : E/R Discharge Date......... ... : Admit Date ......... : 06/27/21 Admit Phys .................... : GERMANIA HDZ Date of ....... : 1940 Family Phys ................... : NO PCP Phone .................. : [phone] Age ................................ : 81 Film# ............ ...... .:[id number] Sex ................................. : F Unsigned transcriptions are preliminary reports and do not represent a medical or legal document CT HEAD W/O CONTRAST [id number] COMPLETE:06/27/21 07:09 AML [id number] Reason(s): Altered Mental Status CT BRAIN WITHOUT IV CONTRAST INDICATION: Altered mental status, confusion, disorientation, memory loss. COMPARISON: None CONTRAST: None One or more of the following dose reduction techniques were utilized in effectively lowering the radiation dose for this examination: Automated Exposure Control, Adjustment of the mA and/or kV according to patient size, or Iterative Reconstruction. FINDINGS: Ventricles and sulci are moderately prominent within normal limits for the patient's age. Fox white differentiation is intact. No extra-axial collection. No acute infarct or hemorrhage. Patchy decreased density is seen in the periventricular and subcortical white matter which is nonspecific but most likely due to chronic small vessel ischemic change. No mass or mass effect. Calvarium and skull base are within normal limits. To the extent included sinuses are clear. IMPRESSION: Atrophy and chronic small vessel ischemic change, otherwise negative. Preliminary report for this exam was provided by Emily.Page 1 of 2 [facility] [address] [place] [address] PHONE: [phone] FAX: [phone] Name .................. : TRACEY WILKINSON Acct Number.................. : [id number] ROOM. ................. : TR-03 MR Number ................... : [id number] Stay type ............. : E/R Discharge Date......... ... : Admit Date ......... : 06/27/21 Admit Phys .................... : GERMANIA HDZ Date of ....... : 1940 Family Phys ................... : NO PCP Phone .................. : [phone] Age ................................ : 81 Film# .................. .:[id number] Sex ................................. : F 6 Clinical Report - Physicians/Mid Levels [facility] Department [address] [place] [address] Phone #: ext- [phone] 06/27/2021 06:06 Patient: JAJA WEBB Sex: F : 1940 Age: 81y Unsigned transcriptions are preliminary reports and do not represent a medical or legal document CT HEAD W/O CONTRAST [id number] COMPLETE:06/27/21 07:09 AML [id number] Reason(s): Altered Mental Status Electronically Reviewed and Signed By PITER VILLANUEVA JWS Transcribe Initials: SSR, Transcribe Date: 06/27/21 08:33, Dictation Date: <<REPDIST>>Page 2 of 2CBC w Diff: (JUNO: 06/27/2021 06:25) ( MsgRcvd 06/27/2021 06:49) Final results Test Result Flag Units (Reference) CBC W/AUTOMATED DIFF COMPLETE BLOOD COUNT WBC 12.2 H 10/uL (4.2 - 11.0) RBC 3.56 L 10/uL (4.20 - 5.40) HEMOGLOBIN 10.1 L g/dL (12.0 - 16.0) HEMATOCRIT 32.7 L % (37.0 - 47.0) MCV 91.9 fL (81.0 - 101) MCH 28.4 pg (27.0 - 34.0) MCHC 30.9 L g/dL (31.0 - 36.0) RDW 16.3 H % (11.5 - 14.5) PLATELETS 444 10/uL (150 - 450) MPV 10.1 fL (7.4 - 10.4) NEUT 78.6 % (37.0 - 80.0) LYMPH 13.3 L % (25.0 - 40.0) MONO 6.5 % (3.0 - 8.0) EOS 0.7 % (0.0 - 7.0) BASO 0.4 % (0.0 - 2.5) %IG 0.5 H % (0.0 - 0.0) %NRBC 0.0 % (0.0 - 0.0) #NEUT 9.61 H 10/uL (2.00 - 6.90) #LYMPH 1.63 10/uL (0.60 - 3.40) #MONO 0.80 10/uL (0.00 - 0.90) #EOS 0.08 10/uL (0.00 - 0.70) #BASO 0.05 10/uL (0.00 - 0.20) #IG 0.06 10/uL (0.00 - 0.10) #NRBC 0.00 10/uL (0.00 - 0.00) MANUAL DIFF NOT INDICATED RBC MORPH NOT INDICATEDCMP: (JUNO: 06/27/2021 06:25) ( MsgRcvd 06/27/2021 07:21) Final results Test Result Flag Units (Reference) COMPREHENSIVE METABOLIC PANEL COMPREHENSIVE METABOLIC PANEL SODIUM 136 mEq/L (134 - 153) POTASSIUM 5.4 H mEq/L (3.6 - 5.0) CHLORIDE 103 mEq/L (98 - 107) 7 Clinical Report - Physicians/Mid Levels [facility] Department [address] [place] [address] Phone #: ext- [phone] 06/27/2021 06:06 Patient: JAJA WEBB Sex: F : 1940 Age: 81y CO2 22 MEQ/L (22 - 30) GLUCOSE 103 H MG/DL (70 - 99) BUN 44 H MG/DL (7 - 21) CREATININE 1.0 MG/DL (0.7 - 1.5) BUN/CREAT 44 H (8 - 27) TOTAL PROTEIN 7.5 G/DL (6.3 - 8.2) ALBUMIN 3.5 L G/DL (3.9 - 5.0) GLOBULIN 4.0 H GM/DL (2.4 - 3.2) A/G RATIO 0.9 (0.8 - 2.0) CALCIUM 9.1 MG/DL (8.4 - 10.2) TOTAL BILI <0.7 MG/DL (0.2 - 1.3) ALKALINE PHOS 135 H U/L (38 - 126) SGOT/AST 25 U/L (5 - 40) SGPT/ALT 29 U/L (7 - 56) ANION GAP 11.0 mmol/L (8.0 - 16.0) AGE 81 yrs NON-AA GFR 56 mL/min AFR AMER GFR >60 Male GFR Interprentation 20-49 yrs >60 mL/min Yksvqn58-10 yrs >56 mL/min Normal 60-69 yrs >49 mL/min Normal 70-79yrs>42 mL/min Normal 80 and above >35 mL/min Normal Female GFRInterpretation 20-39 yrs >60 mL/min Normal 40-49 yrs >58 mL/minNormal 50-59 yrs >51 mL/min Normal 60-69 yrs >45 mL/min Vajcvm36-64 yrs >39 mL/min Normal 80 and above >32 mL/min NormalLipase: (JUNO: 06/27/2021 06:25) ( CogRcvd 06/27/2021 07:21) Final results Test Result Flag Units (Reference) LIPASE 11 L U/L (13 - 60)Troponin-T: (JUNO: 06/27/2021 06:25) ( MsgRcvd 06/27/2021 06:58) Final results Test Result Flag Units (Reference) TROPONIN T <0.01 NG/ML (0.00 - 0.10) TROPONIN T0.1 ng/ml Recommended as the clinical threshold value forTroponin T.BNP: (JUNO: 06/27/2021 06:25) ( MsgRcvd 06/27/2021 07:21) Final results Test Result Flag Units (Reference) BNP 556 H PG/ML (0 - 450)TSH: (JUNO: 06/27/2021 06:25) ( MsgRcvd 06/27/2021 07:07) Final results Test Result Flag Units (Reference) TSH 1.96 uIU/mL (0.47 - 5.01)Chest Portable 1 View: (JUNO: 06/27/2021 06:31) ( CogRcvd 06/27/2021 08:33) In ProgressCHEST PORTABLEReason(s): Shortness of BreathTRANSPORTATION: P IV? O2? Oxygen?(No) Room: [place] [address] PHONE: [phone] FAX: [phone] Name .................. : TRACEY WILKINSON Acct Number.................. : [id number] Clinical Report - Physicians/Mid Levels [facility] Emergency Department [address] [place] [address] Phone #: ext- [phone] 06/27/2021 06:06 Patient: JAJA WEBB Sex: F : 1940 Age: 81y ROOM. ................. : TR-03 MR Number ................... : [id number] Stay type ............. : E/R Discharge Date......... ... : Admit Date ......... : 06/27/21 Admit Phys .................... : GERMANIA HDZ Date of ....... : 1940 Family Phys ................... : NO PCP Phone .................. : [phone] Age ................................ : 81 Film# .................. .:[id number] Sex ................................. : F Unsigned transcriptions are preliminary reports and do not represent a medical or legal document CHEST PORTABLE [id number] COMPLETE:06/27/21 07:09 AML [id number] Reason(s): Shortness of Breath PORTABLE CHEST SINGLE VIEW OBTAINED AT 6:59 AM HISTORY: Shortness of breath COMPARISON: None. FINDINGS: The heart is mildly enlarged. The pulmonary vessels are within normal limits. Lungs are clear. No pulmonary edema. No pleural effusions or pneumothorax. IMPRESSION: Mild cardiomegaly. No acute disease. Electronically Reviewed and Signed By DCTNAME , SIGNDATE, CHRISTIE Transcribe Initials: LIDIA, Transcribe Date: 06/27/21 08:32, Dictation Date: <<REPDIST>> Page 1 of 1 . Bedside Tests: Glucose normal - 124 (performed at bedside).PROGRESS AND PROCEDURESCourse of Care: 07:05 06/27/21. care transferred Dr. Roldan at shift change 7 am 08:01 06/27/21. Patient signed out to me by DR Solo. she is an 81 y/o female diabetic transferred for [facility] for unresponsiveness. she was noted to have a low blood sugar and was given Glucagon by the staff and was transferred here. she is now awake and alert without any focal weakness 08:03 06/27/21. ct of the head did not show any acute abnormality 08:09 06/27/21. Her FSG is now 309 while on the d5 drip. will stop the glucose drip 9 Clinical Report - Physicians/Mid Levels [facility] Emergency Department [address] [place] [address] Phone #: ext- [phone] 06/27/2021 06:06 [id number] : 1940 Age: 81y 09:10 06/27/21. CXR i did not show any pneumonia. she has an elevated WBC. her potassium is slightly elevated at 5.4 10:07 06/27/21. Patient is on an quirino inhibitor for her HTN and her repeat FSG is 269 after we stopped the d5 infusion 11:13 06/27/21. Patient is non ambulatory as per her chel care provider. she is at [facility] for Rehab 11:31 06/27/21. Patients CR as well as urinalysis were normal will discharge her home. ED care transferred. Case discussed with Dr. Roldan. Brief hx: as per H. Pending items: lab, CT / MRI results and xray results. Expected disposition: admit. Patient and caregiver counseled in person several times regarding the patient's stable condition, test results, diagnosis and need for follow-up. Patient and caregiver agrees with plan of care. 11:31. Disposition: [facility] in good and improved condition (11:32). Condition: good and stable. Discharge decision based on the following: patient's condition is improved; patient drinking fluids; minimally abnormal test results; improving condition on repeat evaluation; social support is adequate; transportation is available; follow-up is available; clinical impression is consistent with outpatient treatment.CLINICAL IMPRESSION Hypoglycemia without coma- associated with type 2 diabetes.INSTRUCTIONS (patient was hypoglycemic. CXR EKG troponin as well as the Urinalysis is normal. please monitor the pt and give her diabetic medication after she eats). Your Current Medications: Your current home medications [...] : Solution Pen-injector 100 unit/mL, 86 units. 10 Clinical Report - Physicians/Mid Levels [facility] Emergency Department [address] [place] [address] Phone #: ext- [phone] 06/27/2021 06:06 Patient: JAJA WEBB Sex: F : 1940 Age: 81y Follow-up: Follow up with your healthcare provider.(Electronically signed by Shanice Roldan 06/27/2021 15:43) Name Value Range Interpretation Code Description Data Aura rce(s) Supporting Document(s) ID Date Data Source [id number] 07/01/2021 07:45:00 AM EST [facility] Name Value Range Interpretation Code Description Data Aura rce(s) Supporting Document(s) COMPREHENSIVE METABOLIC PANEL [facility] COMPREHENSIVE METABOLIC PANEL Sodium [Moles/volume] in Serum or Plasma 137 mEq/L 134 - 153 [facility] Potassium [Moles/volume] in Serum or Plasma 4.8 mEq/L 3.6 - 5.0 [facility] Chloride [Moles/volume] in Serum or Plasma 103 mEq/L 98 - 107 [facility] Carbon dioxide, total [Moles/volume] in Serum or Plasma 25 MEQ/L 22 - 30 [facility] Glucose [Mass/volume] in Serum or Plasma 173 MG/DL 70 - 99 H [facility] BUN 13 MG/DL 7 - [facility] Creatinine [Mass/volume] in Serum or Plasma 0.7 MG/DL 0.7 - 1.5 [facility] BUN/CREAT 19 8 - 27 [facility] Protein [Mass/volume] in Serum or Plasma 6.7 G/DL 6.3 - 8.2 [facility] Albumin [Mass/volume] in Serum or Plasma 3.2 G/DL 3.9 - 5.0 L [facility] Globulin [Mass/volume] in Serum by calculation 3.5 GM/DL 2.4 - 3.2 H [facility] A/G RATIO 0.9 0.8 - 2.0 [facility] Calcium [Mass/volume] in Serum or Plasma 9.1 MG/DL 8.4 - 10.2 [facility] Bilirubin.total [Mass/volume] in Serum or Plasma <0.7 MG/DL 0.2 - 1.3 [facility] Alkaline phosphatase [Enzymatic activity/volume] in Serum or Plasma 125 U/L 38 - 126 [facility] Aspartate aminotransferase [Enzymatic activity/volume] in Serum or Plasma 20 U/L 5 - 40 [facility] Alanine aminotransferase [Enzymatic activity/volume] in Seru m or Plasma 20 U/L 7 - 56 [facility] Anion gap 3 in Serum or Plasma 9.0 mmol/L 8.0 - 16.0 [facility] AGE 81 y[facility] NON-AA GFR >60 mL/min [facility] AFR AMER GFR >60 [facility] Male GFR In terprentation 20-49 yrs >60 mL/min Normal 50-59 yrs >56 mL/min Normal 60-69 yrs >49 mL/min Normal 70-79yrs >42 mL/min Normal 80 and above >35 mL/min Normal Female GFR Interpretation 20-39 yrs >60 mL/min Normal 40-49 yrs >58 mL/min Normal 50-59 yrs >51 mL/min Normal 60-69 yrs >45 mL/min Normal 70-79 yrs >39 mL/min Normal 80 and above >32 mL/min Normal ID Date Data Source [id number] 07/01/2021 07:07:00 AM EST [facility] Name Value Range Interpretation Code Description Data Aura rce(s) Supporting Document(s) CBC W/AUTOMATED DIFF [facility] COMPLETE BLOOD COUNT Leukocytes [#/volume] in Blood by Automated count 8.0 10^3/uL 4.2 - 1 1.0 [facility] Erythrocytes [#/volume] in Blood by Automated count 3.33 10^6/uL 4. 20 - 5.40 L [facility] Hemoglobin [Mass/volume] in Blood 9.4 g/dL 12.0 - 16.0 L [facility] Hematocrit [Volume Fraction] of Blood by Automated count 30.4 % 3 7.0 - 47.0 L [facility] Erythrocyte mean corpuscular volume [Entitic volume] by Auto mated count 91.3 fL 81.0 - 101 [facility] Erythrocyte mean corpuscular hemoglobin [Entitic mass] by Automated count 28.2 pg 27.0 - 34.0 [facility] Erythrocyte mean corpuscular hemoglobin concentration [Mass/volume] by Automated count 30.9 g/dL 31.0 - 36.0 L [facility] Erythrocyte distribution width [Ratio] by Automated count 15.9 % 11.5 - 14.5 H [facility] Platelets [#/volume] in Blood by Automated count 323 10^3/uL 150 - 45 0 [facility] Platelet mean volume [Entitic volume] in Blood by Automated count 9.9 fL 7.4 - 10.4 [facility] Neutrophils/100 leukocytes in Blood by Automated count 58.5 % 37. 0 - 80.0 [facility] Lymphocytes/100 leukocytes in Blood by Manual count 29.3 % 25.0 - 40.0 [facility] Monocytes/100 leukocytes in Blood by Automated count 8.3 % 3.0 - 8.0 H [facility] Eosinophils/100 leukocytes in Blood by Automated count 2.5 % 0.0 - 7.0 [facility] Basophils/100 leukocytes in Blood by Automated count 1.0 % 0.0 - 2.5 [facility] %IG 0.4 % 0.0 - 0.0 [facility] %NRBC 0.0 % 0.0 - 0.0 [facility] Neutrophils [#/volume] in Blood by Automated count 4.66 10^3/uL 2.00 - 6.90 [facility] Lymphocytes [#/volume] in Blood by Automated count 2.33 10^3/uL 0.60 - 3.40 [facility] Monocytes [#/volume] in Blood by Automated count 0.66 10^3/uL 0.00 - 0.90 [facility] Eosinophils [#/volume] in Blood by Automated count 0.20 10^3/uL 0.00 - 0.70 [facility] Basophils [#/volume] in Blood by Automated count 0.08 10^3/uL 0.00 - 0.20 [facility] #IG 0.03 10^3/uL 0.00 - 0.10 [facility] #NRBC 0.00 10^3/uL 0.00 - 0.00 [facility] MANUAL DIFF NOT INDICATED [facility] RBC MORPH NOT INDICATED [facility] ID Date Data Source [id number] 06/30/2021 01:40:00 AM EST [facility] 1 OrderSheet [facility] Department [address] [place] [address] Phone #: ext- [phone] 06/30/2021 01:33 Patient: JAJA WEBB Sex: F : 1940 Age: 81yWEIGHT:65.7 kg HEIGHT:59 inches BMI:29.3ALLERGIES: Aspirin, Codeine PhosphateCHIEF COMPLAINT: unresponsiveDIAGNOSIS: Urinary tract infectious disease, HypoglycemiaLAB ORDERSOrder Description Priority Entered Acknowledged InitialedCBC w Diff STAT 01:50 06/30/2021 01:50 Abisai Blue Norma MD; Liz SegalCMP STAT 01:50 06/30/2021 01:50 Abisai Blue Norma MD; Liz SegalUA Reflex to UA STAT 01:50 06/30/2021 Ack'd: 01:50 03:47 Chrissie Blue Norma MD; Liz Blue R.N., R.N.Magnesium STAT 01:50 06/30/2021 01:50 Abisai Blue Norma MD; Liz SegalDIAGNOSTIC STUDY ORDERSOrder Description Priority Entered Acknowledged InitialedMEDICATION/IV/DRIP/FLUID ORDERSOrder Description Priority Entered Acknowledged InitialedD-50 IVP 50 mL 01:47 06/30/2021 01:48 Minna,(NOW x1) Nancy Buitrago ; Nancy Verbal order per; Velia Telles MDIV NS 500 mL Bolus 01:50 06/30/2021 Ack'd: 01:50 01:53 Mirza,: Bolus 500 mL (X1) Velia Telles MD; Liz Blue R.N., R.N.Rocephin 06:48 06/30/2021 07:07 Minna,(1gm/50mL) IVPB Velia Telles MD; [id number] mg withDextrose 50 mlspike bag (D5W)GENERAL ORDERSOrder Description Priority Entered Acknowledged Venita 02:14 06/30/2021 02:14 Morteza Blue OrderSheet [facility] Emergency Department [address] [place] [address] Phone #: ext- [phone] 06/30/2021 01:33 Patient: JAJA WEBB Sex: F : 1940 Age: 81y Liz Blue R.N.; Liz Segal Per protocol; Velia Telles MDAccuchvickey 07:00 06/30/2021 07:01 Mirza Blue Laura R.N.; Liz Segal Verbal order per; Velia Telles MD[Electronically signed by Velia Telles MD (07:38 06/30/2021)][Electronically signed by Binta Gleason R.N. (09:42 06/30/2021)][Electronically locked by Binta Gleason R.N. (09:42 06/30/2021)] Name Value Range Interpretation Code Description Data Aura rce(s) Supporting Document(s) ID Date Data Source [id number] 06/30/2021 01:40:00 AM EST [facility] 1 Medication Reconciliation Report [facility] Department [address] [place] [address] Phone #: ext- [phone] 06/30/2021 01:33 Patient: JAJA WEBB Sex: F : 1940 Age: 81yWeight: 65.7 kgHeight/Length: 59 in.BMI: 29.3ALLERGIES: Aspirin, Codeine PhosphateThe patient's Home Medications are listed below:THE FOLLOWING MEDICATIONS NEED TO BE RECONCILED: Advair Diskus Inhalation (250-50 mcg/dose) 1 puff, 2x a day, last dose: 06/29 9a Bi soprolol-hydroCHLOROthiazide Oral (10-6.25 mg) 1 tablet, daily Ferrous Sulfate Oral (325 (65 Fe) mg) 1 tablet, daily, last dose: 06/29 9A Gabapentin Oral (100 mg) 1 capsule, daily, last dose: 06/29 9pm, at bedtime Levemir FlexTouch Subcutaneous (100 unit/mL) 45 units, 2x a day, last dose: 06/29 1900 Magnesium Oxide 400 Oral 1 tablet, daily metFORMIN HCl Oral (1000 mg) 1 tablet, 2x a day, last dose: 06/29 9pm NovoLOG Subcutaneous (100 unit/mL) 8 units, 3x a day, last dose: 06/29 1700, before meals Ramipril Oral (10 mg) 1 capsule, daily, at bedtime Sertraline HCl Oral (50 mg) 1 tablet, dailyThe source(s) of the original Home Medication information:Not obtained.The following Medications were given to the patient in the Emergency Department:D-50 [IVP] IVP 50 mL, administered: 01:48 06/30/2021odium Chloride [IV] IV Fluids bolus 0, then 500 mL/hr, administered: 01:53 06/30/2021 2 Medication Reconciliation Report [facility] Emergency Department [address] [place] [address] Phone #: ext- [phone] 06/30/2021 01:33 Patient: JAJA WEBB Sex: F : 1940 Age: 81yROCEPHIN (1GM/50ML) [IVPB] IVPB bolus 0, then 1 gm 100 mL/hr, administered: 07:07 06/30/2021The following Medications were prescribed to the patient:None. Name Value Range Interpretation Code Description Data Aura rce(s) Supporting Document(s) ID Date Data Source [id number] 06/30/2021 01:40:00 AM EST [facility] 1 Medication Administration Record [facility] Department [address] [place] [address] Phone #: ext [phone] 06/30/2021 01:33 Patient: JAJA WEBB Sex: F : 1940 Age: 81yWeight: 65.7 kgHeight/Length: 59 inBMI: 29.3ALLERGIES: Aspirin, Codeine Phosphate Date/Time Medication Administered Medication OrderedGiven D-50 [IVP] D-50 IVP 50 mL (NOW x1)01:48 06/30/2021 Dose: 50 mL Nancy Reynoso, Site: #1 right ACStart SODIUM CHLORIDE [IV] IV NS 500 mL Bolus : Bolus 10446:53 06/30/2021 Dose: IV Fluids mL (X1)Liz Blue R.N. Rate: 500 mL/hr over 1 hour(s)---- Dispensed: 500 mL bagStop Site: #1 right AC03:47 06/30/2021Liz Blue R.N.Start ROCEPHIN (1GM/50ML) [IVPB] Rocephin (1gm/50mL) IVPB 110973:07 06/30/2021 (CEFTRIAXONE SODIUM) mg with Dextrose 50 ml spike Nancy Klein, Dose: 1 gm IVPB (D5W)---- Rate: 100 mL/hr over 30 minute(s)Stop D ispensed: 50 mL bag07:40 06/30/2021 Site: #1 right Binta Trimble R.N. Name Value Range Interpretation Code Description Data Aura rce(s) Supporting Document(s) ID Date Data Source [id number] 06/30/2021 01:40:00 AM [facility] 1 General Instructions [facility] Department [address] [place] [address] Phone #: ext- [phone] 06/30/2021 01:33 Patient: JAJA WEBB Sex: F : 1940 Age: 81yHypoglycemia.Urinary tract infection.(Electronically signed by Velai Telles MD 06/30/2021 07:38) Name Value Range Interpretation Code Description Data Aura e(s) Supporting Document(s) ID Date Data Source [id number] 06/30/2021 01:40:00 AM [facility] 1 Clinical Report - Nurses [facility] Emergency Department [address] [place] [address] Phone #: ext- [phone] 06/30/2021 01:33 Patient: JAJA WEBB Sex: F : 1940 Age: 81yTRIAGEArrived by EMS. Historian: jail records.Acuity: LEVEL 2.Chief Complaint: UNRESPONSIVE.Alert. No acute distress.This started just prior to arrival. Unknown when patient was last known well. ( [facility]from jail where she was found to be unresponsive and breathing. FSBS at jail was32. Nursing staff at jail reports patient received 8u Novolog at 1700 last night. Patient was foundby her room mate to be unresponsive just prior to arrival.).SEPSIS SCREEN: SIRS SCREEN NEGATIVE. SEPSIS SCREEN NEGATIVE. No suspected or confirmedsigns of infection present.EMMANUEL COMA SCORE: 9- eyes open to sound (3); best verbal response- sounds (2); best motorresponse- normal flexion (4). --01:46 06/30/21 Nancy Buitrago01:41 06/30/21. BP: 110/53. HR: 58. RR: 17. O2 saturation: 94%. Temp: 97.7 F. Pain level now 0/10.--01:46 06/30/21 Nancy Buitrago.Weight: 65.7 kg. Height/Length: 59 inches. BMI: 29.3. --01:41 06/30/21 Nancy Buitrago.MedicationsAdvair Diskus Inhalation (Aerosol Powder Breath Activated 250-50 mcg/dose) 1 puff, 2x a day, last dose06/29 9 a. --01:43 06/30/21 Marielena Kam RN Gabapentin Oral (Capsule 100 mg) 1 capsule, daily at bedtime, last dose 06/29 9pm. metFORMIN HCl Oral (Tablet 1000 mg) 1 tablet, 2x a day, last dose 06/29 9pm. NovoLOG Subcutaneous (Solution 100 unit/mL) 8 units, 3x a day before meals, last dose 06/29 1700. Ramipril Oral (Capsule 10 mg) 1 capsule, daily at bedtime. Sertraline HCl Oral (Tablet 50 mg) 1 tablet, daily. --01:43 06/30/21 Marielena Kam RN Bisoprolol-hydroCHLOROthiazide Oral (Tablet 10-6.25 mg) 1 tablet, daily. --08:42 06/30/21 ENOCH Pool Ferrous Sulfate Oral (Tablet 325 (65 Fe) mg) 1 tablet, daily, last dose 06/29. --08:44 06/30/21 ENO[facility] Pool Levemir FlexTouch Subcutaneous (Solution Pen-injector 100 unit/mL) 45 units, 2x a day, last dose . --09:00 06/30/21 Marielena Kam RN Magnesium Oxide 400 Oral 1 tablet, daily. --09:00 06/30/21 Marielena Kam RNThe following entry was struck by Marielena Kam RN, 08:58 (06/30/21) Reason - wrong value. 2 Clinical Report - Nurses [facility] Emergency Department [address] [place] [address] Phone #: ext- [phone] 06/30/2021 01:33 Patient: TRACEY JAJA [facility] t#: [id number] Sex: F : 1940 Age: 81yTresiba FlexTouch Subcutaneous (Solution Pen-injector 100 unit/mL) 86 units. --01:43 06/30/21 Nida Buitrago following entry was struck and corrected by Marielena Kam RN, 08:58 (06/30/21) Reason forcorrection - other(correction).Sertraline HCl Oral (Tablet 25 mg), daily. --01:43 06/30/21 Nida Buitrago following entry was struck and corrected by Marielena Kam RN, 08:57 (06/30/21) Reason forcorrection - other(correction).Ramipril Oral (Capsule 2.5 mg), daily. --01:43 06/30/21 Nida Buitrago following entry was struck and corrected by Marielena Kam RN, 08:48 (06/30/21) Reason forcorrection - other(correction).NovoLOG Subcutaneous (Solution 100 unit/mL) 14 units, 3x a day. --01:43 06/30/21 Nida Buitrago following entry was struck and corrected by Marielena Kam RN, 08:48 (06/30/21) Reason forcorrection - other(correction).metFORMIN HCl Oral (Tablet 500 mg), 2x a day. --01:43 06/30/21 Nida Buitrago following entry was struck and corrected by Marielena Kam RN, 08:43 (06/30/21) Reason forcorrection - other(correction).Gabapentin Oral (Tablet 600 mg) 1 tablet, at bedtime. --01:43 06/30/21 Nida Buitrago following entry was struck by Marielena Kam RN, 08:41 (06/30/21) Reason - wrong value.Bisoprolol Fumarate Oral (Tablet 5 mg) 1 tablet, daily. --01:43 06/30/21 Nida Buitrago following entry was struck and corrected by Marielena Kam RN, 08:41 (06/30/21) Reason forcorrection - other(correction).Advair Diskus Inhalation (Aerosol Powder Breath Activated 100-50 mcg/dose), 2x a day. --01: Nancy Buitrago .AllergiesAspirin.Codeine Phosphate. --01:43 06/30/21 Nancy Buitrago.PROBLEMS:Hypertension.Diabetes Mellitus.Weakness.Hypoglycemia. --01:44 06/30/21 Nancy Buitrago.ADDITIONAL SURGERIES:Unknown. --01:44 06/30/21 Nancy Buitrago.HistoryPAST MEDICAL HX: The patient is post-menopausal.SOCIAL HX: Never smoker. No alcohol use or drug use. She was offered HIV testing but declined andhepatitis C testing but declined. She has not traveled outside the [place]Infectious disease exposure: No infectious disease exposure. Patient is not a known carrier of tuberculosis,hepatitis, HIV, MRSA or VRE. Patient is not a known carrier of CRE. 3 Clinical Report - Nurses [facility] Emergency Department [address] [place] [address] Phone #: ext- [phone] 06/30/2021 01:33 [id number]: [facility] : 1940 Age: 81y SELF HARM ASSESSMENT: Self harm assessment deferred due to patient condition. ABUSE ASSESSMENT: Abuse assessment. No suspicion of abuse. No report of abuse. NUTRITIONAL RISK ASSESSMENT: The nutritional risk assessment revealed no deficiencies. FUNCTIONAL ASSESSMENT: Functional assessment: no impairments noted. LEARNING NEEDS ASSESSMENT: The learning needs assessment revealed no barriers. FALL RISK ASSESSMENT: Fall risk assessment completed. Risk factors identified include patient age greater than 65 years and impairment of cognition. Fall interventions initiated. Patient placed on stretcher. Side rails up x2. Bed in low position. Brakes on. Patient visible from nurses' station. SKIN INTEGRITY ASSESSMENT: Skin integrity risk assessment completed. No skin integrity risk identified. --01:46 06/30/21 Nancy Buitrago. Interventions Identification band on patient. --01:46 06/30/21 Nancy Buitrago.NURSING PROGRESS NOTESReassurance given. Two patient identifiers checked. Call light placed in reach. Side rails up x 2. Bedplaced in lowest position. Brakes of bed on. Patient ready for evaluation. --01:46 06/30/21 Nancy Buitrago late entry - 01:38 06/30/21. Finger stick glucose: 12 mg/dL; performed by nurse; result shown to the ED physician. --01:46 06/30/21 Nancy Buitrago 01:48 06/30/2021 Site #1 started via IV in the right antecubital space with an 20g angiocath, with aseptic technique and good blood return; one attempt. Blood drawn: rainbow set. Saline lock flushed with saline. --01:48 06/30/21 Nancy Buitrago 01:48 06/30/2021 Site #2 started via IV in the left antecubital space with an 20g angiocath, with aseptic technique and good blood return; one attempt. Saline lock flushed with saline. --01:48 06/30/21 Nancy Buitrago 01:48 06/30/2021 D-50 IVP 50 mL given over 1 minute(s) via site #1. Allergies verified and confirmed 5 rights. IV patency established. IV site checked: no pain, redness, or swelling. IV flushed thoroughly pre- and post-medication administration. IVP given by RN. Information reviewed with patient including reason for taking this medication, signs of allergic reaction and precautions. Verbalizes understanding. --01:48 06/30/21 Nancy Buitrago ( Pt now more arousable after D50. Pt able to answer yes and open eyes on command.). --01:49 06/30/21 Liz Blue R.N. 4 Clinical Report - Nurses [facility] Department [address] [place] [address] Phone #: ext- [phone] 06/30/2021 01:33 Patient: JAJA WEBB Sex: F : 1940 Age: 81y01:53 06/30/2021 Started bag #1 500 mL IV Fluids Sodium Chloride; at 500 mL/hr over 1 hour(s) via site#1 via IV pump. Allergies verified and confirmed 5 rights. IV patency established. IV site checked: no pain,redness, or swelling. IV flushed thoroughly pre- and post-medication administration. Information reviewedwith patient. Verbalizes understanding. --01:53 06/30/21 Liz Blue R.N.Finger stick glucose: 155 mg/dL; performed by nurse; result shown to the ED physician. --02:13 06/30/21Liz Blue R.N.03:47 06/30/2021 IV Fluids Sodium Chloride via IV site #1 Discontinued: completed. Total amount infused:500 mL. IV patency established. IV site checked: no pain, redness, or swelling. IV flushed thoroughly.--03:47 06/30/21 Liz Blue R.N.Patient ID band checked for patient name and birthdate: patient confirmed. Instructions provided to collectclean catch urine and patient verbalized understanding. Catheterized urine collected with return ofyellow-colored urine, sediment noted; odor is foul-smelling; sample sent to lab for urinalysis. Specimenlabeled in the presence of the patient. --03:48 06/30/21 Liz Blue R.N.03:49 06/30/21. BP: 125/82. MAP: 96. HR: 53. RR: 15. O2 saturation: 98% on nasal cannula at 2liters/minute. Pain level now: 0/10. --03:50 06/30/21 Liz Blue R.N.The patient is calm, resting quietly and sleeping. --03:50 06/30/21 Liz Blue R.N.04:00 06/30/21. BP: 97/49. MAP: 65. HR: 48. RR: 15. O2 saturation: 100%. --05:39 06/30/21 Nancy Buitrago04:30 06/30/21. BP: 99/50. MAP: 66. HR: 46. RR: 18. O2 saturation: 99%. Pain level now: 0/10. --05:40108/30/20 Opal Buitrago entry - 05:00 06/30/21. The patient reports no complaints and she is calm and resting quietly.--05:41 06/30/21 Nancy Buitrago05:00 06/30/21. BP: 94/61. MAP: 72. HR: 48. RR: 16. O2 saturation: 99%. --05:41 06/30/21 Nancy Buitrago05:30 06/30/21. BP: 104/45. MAP: 64. HR: 48. RR: 15. O2 saturation: 99%. --05:42 06/30/21 Gm BuitragonReassurance given.Rounding: Proximity of possessions / care items: call light within easy reach. The patient is calm andresting quietly. --06:02 06/30/21 Gm Buitragon06:00 06/30/21. BP: 123/42. MAP: 69. HR: 52. RR: 17. O2 saturation: 98%. --06:02 06/30/21 Minna, 5 Clinical Report - Nurses [facility] Department [address] [place] [address] Phone #: ext- [phone] 06/30/2021 01:33 Patient: JAJA WEBB Sex: F : 1940 Age: 89cIojrxsb35:43 06/30/21. BP: 110/47. HR: 52. O2 saturation: 98%. --06:44 06/30/21 Liz Blue R.N.The patient is sleeping. --06:44 06/30/21 Liz Blue R.N.Finger stick glucose: 63 mg/dL; performed by nurse; result shown to the ED physician. --07:01 06/30/21Liz Blue R.N.( Pt FS of 63. Pt is alert and responsive. Pt provided with apple juice at this time. MD Telles aware. Nova FS in 15 mins.). --07:05 06/30/21 Liz Blue R.N.07:07 06/30/2021 Started 1 gm of ROCEPHIN (1GM/50ML) (cefTRIAXone Sodium) IVPB in bag #1 50 mL;at 100 mL/hr over 30 minute(s) via site #1. via IV pump. Allergies verified and confirmed 5 rights. IVpatency established. IV site checked: no pain, redness, or swelling. IV flushed thoroughly pre- andpost-medication administration. Information reviewed with patient including reason for taking thismedication, signs of allergic reaction and precautions. Verbalizes understanding. --07:07 21 Anderson Buitrago stick glucose: 69 mg/dL; ordered; performed by nurse; result shown to the ED physician. --: Binta Gleason R.N.Reassessment acuity: LEVEL 3.Rounding: Pain: assessed pain level. Position: states comfortable and repositioned. Proximity ofpossessions / care items: call light within easy reach. Plug ins: assured IV pump plugged in; checkedstatus of equipment in use; located all cords, tubes, and lines to prevent fall hazard. Set expectations:advised patient of rounding protocol timing and asked if they needed anything else at this time. Thepatient reports no complaints and she is calm and resting quietly. Overall patient status is improved. ( Ptstates she feels much bettter, left side lying, NAD; Given more juice for FS.).GENERAL / NEURO / PSYCH: Patient is calm and cooperative. Alert.CVS: Normal sinus rhythm noted. --07:06/30/21 Binta Gleason R.N.07:00 06/30/21. BP: 112/43. MAP: 66. HR: 60. RR: 24. O2 saturation: 100% on nasal cannula at 2liters/minute. Temp: 97.1 F (oral). Pain level now: 0/10. --07:06/30/21 Binta Gleason R.N.Finger stick glucose: 123 mg/dL mg/dL; ordered; performed by nurse; result shown to the ED physician.--08:39 06/30/21 Binta Gleason R.N.Reassessment acuity: LEVEL 3.Rounding: Position: states comfortable. Plug ins: checked status of equipment in use; located all cords,tubes, and lines to prevent fall hazard. Set expectations: advised patient of rounding protocol timing andasked if they needed anything else at this time. The patient reports no complaints and she is calm and 6 Clinical Report - Nurses [facility] Emergency Department [address] [place] [address] Phone #: ext- [phone] 06/30/2021 01:33 Patient: JAJA WEBB Sex: F : 1940 Age: 81y resting quietly. Overall patient status is improved- she states feels better. ( Pt NAD, FS better, pt has no complaints, will continue to monitor.). GENERAL / NEURO / PSYCH: Patient is calm and cooperative. Alert. Patient waiting for admit bed. --08:39 06/30/21 Binta Gleason R.N. 08:40 06/30/21. BP: 98/47. HR: 60. RR: 22. O2 saturation: 100%. --08:40 06/30/21 Binta Gleason R.N. 09:10 06/30/21. BP: 117/60. HR: 59. RR: 18. O2 saturation: 100%. --09:10 [facility]30[facility]21 [facility] 07:40 06/30/2021 ROCEPHIN (1GM/50ML) IVPB via IV site #1 Discontinued: bag #1 completed. Total amount infused: 50 mL. IV patency established. IV site checked: no pain, redness, or swelling. IV flushed thoroughly. --09:31 06/30/21 Binta Gleason R.N.DISPOSITION / DISCHARGE Condition at departure: stable. --09:31 06/30/21 Binta Gleason R.N. 09:30 06/30/21. BP: 101/53. MAP: 69. HR: 58. RR: 22. O2 saturation: 100% on nasal cannula at 2 liters/minute. Temp: 97.3 F. Pain level now 0/10. --09:06/30/21 Binta Gleason R.N. 09:31 06/30/2021 Site #[address] upon admission; patent, no pain and no signs of infection or infiltration. Good blood return present. Flushed with 10 mL saline; flushes easily. --09:06/30/21 Binta Gleason R.N. 09:31 06/30/2021 Site #[address] upon admission; patent, no pain and no signs of infection or infiltration. Good blood return present. Flushed with 10 mL saline; flushes easily. --09:31 06/30/21 Binta Gleason R.N. ( please see paper copy for all VS). --09:06/30/21 Binta Gleason R.N. late entry - 09:35 06/30/21. Departure time: late entry - 09:35 06/30/2021. Admitted to the Acute Inpatient Unit. Transported via stretcher by tech and nurse with monitor, IV and O2. Report was given to a nurse in person, at bedside and via visit overview. Report included information regarding patient's care, treatment, allergies and condition and vital signs. Report included treatment information regarding medications given or pending and home medications; type and amount of IV fluids and medications infusing. All questions were answered. Report was acknowledged. (Krys Pringle RN). Bed requested (105). Bed obtained and ready. Patient's personal items include, clothes. --09:42 06/30/21 Binta Gleason R.N.Locked/Released at 06/30/2021 09:42 by Binta Gleason R.N. 7 Clinical Report - Nurses [facility] Emergency Department [address] [place] [address] Phone #: ext- [phone] 06/30/2021 01:33 Patient: TRACEY JAJA Sex: F : 1940 Age: 81y Name Value Range Interpretation Code Description Data Aura rce(s) Supporting Document(s) ID Date Data Source [id number] 06/30/2021 01:40:00 AM EST [facility] 1 Clinical Report - Physicians/Mid Levels [facility] Emergency Department [address] [place] [address] Phone #: ext- [phone] 06/30/2021 01:33 Patient: JAJA WEBB Sex: F : 1940 Age: 81y Arrived- By ambulance. Historian- EMS personnel. Disposition decision: 07:05 06/30/2021.HISTORY OF PRESENT ILLNESS Chief Complaint: ams, hypoglycemia. This started just prior to arrival and is still present. At its maximum, severity described as severe. When seen in the E.D., severity described as severe. Modifying factors- (glucagon given im). The patient has had weakness. (This started just prior to arrival. Unknown when patient was last kno wn well. ( [facility] where she was found to be unresponsive and breathing. FSBS at jail was 32. Nursing staff at jail reports patient received 8u Novolog at 1700 last night. Patient was found by her room mate to be unresponsive just prior to arrival.). On arrival, pt's glc is 12). Similar symptoms previously. Recent medical care: Not recently seen/assessed.REVIEW OF SYSTEMSUnobtainable due to patient's altered mental status and unresponsiveness. No decreased vision or doublevision.PAST HISTORYSee nurses notes. Problems: Hypertension. Diabetes Mellitus. Weakness. Hypoglycemia. Additional Surgeries: Unknown. Medications: Bisoprolol Fumarate Oral (Tablet 5 mg) 1 tablet, daily. Gabapentin Oral (Tablet 600 mg) 1 tablet, at bedtime. metFORMIN HCl Oral (Tablet 500 mg), 2x a day. NovoLOG Subcutaneous (Solution 100 unit/mL) 14 units, 3x a day. Ramipril Oral (Capsule 2.5 mg), daily. Sertraline HCl Oral (Tablet 25 mg), daily. Tresiba FlexTouch Subcutaneo us (Solution Pen-injector 100 unit/mL) 86 units. 2 Clinical Report - Physicians/Mid Levels [facility] Emergency Department [address] [place] [address] Phone #: ext- [phone] 06/30/2021 01:33 Patient: JAJA WEBB Sex: F : 1940 Age: 81y Advair Diskus Inhalation (Aerosol Powder Breath Activated 100-50 mcg/dose), 2x a day. Allergies: Aspirin. Codeine Phosphate.SOCIAL HISTORYNo drug use.ADDITIONAL NOTESThe nursing notes have been reviewed.PHYSICAL EXAMVital Signs: 06/30/2021 06:43 BP: 110/47. MAP: 68. HR: 52. O2 saturation: 98%.06/30/2021 06:00 BP: 123/42. MAP: 69. HR: 52. RR: 17. O2 saturation: 98%.06/30/2021 05:30 BP: 104/45. MAP: 64. HR: 48. RR: 15. O2 saturation: 99%.06/30/2021 05:00 BP: 94/61. MAP: 72. HR: 48. RR: 16. O2 saturation: 99%.06/30/2021 04:30 BP: 99/50. MAP: 66. HR: 46. RR: 18. O2 saturation: 99%. Pain level now: 0/10.06/30/2021 04:00 BP: 97/49. MAP: 65. HR: 48. RR: 15. O2 saturation: 100%.06/30/2021 03:49 BP: 125/82. MAP: 96. HR: 53. RR: 15. O2 saturation: 98% on nasal cannula at 2liters/minute. Pain level now: 0/10.1 08/30/2020 01:41 BP: 110/53. MAP: 72. HR: 58. RR: 17. O2 saturation: 94%. Temp: 97.7 F. Have beenreviewed and appear to be correct. Blood pressure normal. Mean arterial pressure- normal. Heart ratenormal. Respiratory rate normal. Temperature normal. Oxygen saturation normal.Appearance: (unresponsive).Eyes: Pupils equal, round and reactive to light.ENT: Dry mucous membranes present.Neck: Normal inspection. Neck supple.CVS: Bradycardia. Normal heart rhythm. Heart sounds normal. Pulses normal.Respiratory: No respiratory distress. Painless inspiration. Breath sounds normal. Chest nontender.Abdomen: No visible injury. Soft and nontender. Bowel sounds normal.Back: Normal inspection. No CVA tenderness.Skin: Skin warm and dry. No rash.Extremities: Extremities exhibit normal ROM.Neuro: Altered mental status.LABS, X-RAYS, AND EKGLaboratory Tests: CBC w Diff: (JUNO: 06/30/2021 01:40) ( MsgRcvd 06/30/2021 01:59) Final results Test Result Flag Units (Reference) CBC W/AUTOMATED DIFF COMPLETE BLOOD COUNT WBC 11.0 10/uL (4.2 - 11.0) RBC 3.60 L 10/uL (4.20 - 5.40) HEMOGLOBIN 10.2 L g/dL (12.0 - 16.0) HEMATOCRIT 33.3 L % (37.0 - 47.0) 3 Clinical Report - Physicians/Mid Levels [facility] Emergency Department [address] [place] [address] Phone #: ext- [phone] 06/30/2021 01:33 Patient: TRACEY JANUARY Sex: F : 1940 Age: 81y MCV 92.5 fL (81.0 - 101) MCH 28.3 pg (27.0 - 34.0) MCHC 30.6 L g/dL (31.0 - 36.0) RDW 16.1 H % (11.5 - 14.5) PLATELETS 383 10/uL (150 - 450) MPV 9.9 fL (7.4 - 10.4) NEUT 65.2 % (37.0 - 80.0) LYMPH 25.2 % (25.0 - 40.0) MONO 8.1 H % (3.0 - 8.0) EOS 0.7 % (0.0 - 7.0) BASO 0.5 % (0.0 - 2.5) %IG 0.3 H % (0.0 - 0.0) %NRBC 0.0 % (0.0 - 0.0) #NEUT 7.20 H 10/uL (2.00 - 6.90) #LYMPH 2.78 10/uL (0.60 - 3.40) #MONO 0.89 10/uL (0.00 - 0.90) #EOS 0.08 10/uL (0.00 - 0.70) #BASO 0.06 10/uL (0.00 - 0.20) #IG 0.03 10/uL (0.00 - 0.10) #NRBC 0.00 10/uL (0.00 - 0.00) MANUAL DIFF NOT INDICATED RBC MORPH NOT INDICATEDCMP: (JUNO: 06/30/2021 01:40) ( MsgRcvd 06/30/2021 02:24) Final results Test Result Flag Units (Reference) COMPREHENSIVE METABOLIC PANEL COMPREHENSIVE METABOLIC PANEL SODIUM 141 mEq/L (134 - 153) POTASSIUM 4.3 mEq/L (3.6 - 5.0) CHLORIDE 107 mEq/L (98 - 107) CO2 24 MEQ/L (22 - 30) GLUCOSE 20 LL MG/DL (70 - 99) CALL/ READ BACK LT, RN BY: MLE DATE/TIME [id number] BUN 25 H MG/DL (7 - 21) CREATININE 0.8 MG/DL (0.7 - 1.5) BUN/CREAT 31 H (8 - 27) TOTAL PROTEIN 7.5 G/DL (6.3 - 8.2) ALBUMIN 3.5 L G/DL (3.9 - 5.0) GLOBULIN 4.0 H GM/DL (2.4 - 3.2) A/G RATIO 0.9 (0.8 - 2.0) CALCIUM 9.6 MG/DL (8.4 - 10.2) TOTAL BILI <0.7 MG/DL (0.2 - 1.3) ALKALINE PHOS 121 U/L (38 - 126) SGOT/AST 21 U/L (5 - 40) SGPT/ALT 23 U/L (7 - 56) ANION GAP 10.0 mmol/L (8.0 - 16.0) AGE 81 yrs NON-AA GFR >60 mL/min AFR AMER GFR >60 Male GFR Interprentation 20-49 yrs >60 mL/min Anhbbx65-72 yrs >56 mL/min Normal 60-69 yrs >49 mL/min Normal 70-79yrs>42 mL/min Normal 80 and above >35 mL/min Normal Female GFRInterpretation 20-39 yrs >60 mL/min Normal 40-49 yrs >58 mL/minNormal 50-59 yrs >51 mL/min Normal 60-69 yrs >45 mL/min Rkayyx40-73 yrs >39 mL/min Normal 80 and above >32 mL/min NormalUA REFLEX TO UA CULTURE: (JUNO: 06/30/2021 03:45) ( MsgRcvd 06/30 03:58) Final results 4 Clinical Report - Physicians/Mid Levels [facility] Emergency Department [address] [place] [address] Phone #: ext- [phone] 06/30/2021 01:33 Patient: JAJA WEBB Sex: F : 1940 Age: 81y Test Result Flag Units (Reference) UA REFLEX TO UA CULTURE URINALYSIS SOURCE R COLOR yellow (NORMAL: Yello CLARITY turbid (NORMAL: Clear SPEC GRAVITY 1.010 (1.001 - 1.030 pH 5 (5 - 9) GLUCOSE NORM (NORMAL: Negat BILIRUBIN NEG (NORMAL: Negat KETONE NEG (NORMAL: Negat PROTEIN 30 (NORMAL: Negat NITRITE POS (NORMAL: Negat BLOOD 150 A (NORMAL: Negat LEUK EST 500 A (NORMAL: Negat UROBILINOGEN NOR (less than 1.0 MICROSCOPIC See Below WBC TNTC A (NORMAL: NONE RBC 1 - 3 (NORMAL: NONE EPITHELIAL FEW (NORMAL: NONE BACTERIA 1+ SMALL (NORMAL: NONE Magnesium: (JUNO: 06/30/2021 01:40) ( MsgRcvd 06/30/2021 02:36) Final results Test Result Flag Units (Reference) MAGNESIUM 2.0 MG/DL (1.7 - 2.2).PROGRESS AND PROCEDURESCourse of Care: pt is an 81 year old female who presented to the ED for evaluation of her hypoglycemia.She presented with hypoglycemia. She presented with a glc of 12. An iv was started and she was givenan amp of D50. her glc quickly improved to 155. labs reviewed. her wbc is 11K. At 07:00 her glcdropped to 65. Will give her oral glc and admit. I spoke to pt's health care proxy Amaya Martinez. Debbiestated that pt was extremely independent up until a few months ago. I discussed the case with her. Willadmit patient so she may be monitored and goal will be to adjust her insulin levels to a safer dosage toavoid such hypoglycemic episodes. I called and spoke to the hospitalist, Brandt. He agreed to admit. Disposition: Condition: stable.CLINICAL IMPRESSION Hypoglycemia. Urinary tract infection.(Electronically signed by Velia Telles MD 06/30/2021 07:38) 5Clinical Report - Physicians/Mid Levels [facility] Emergency Department [address] [place] [address] Phone #: ext- [phone] 06/30/2021 01:33 Patient: TRACEY JAJA Sex: F : 1940 Age: 81y Name Value Range Interpretation Code Description Data Aura rce(s) Supporting Document(s) ID Date Data Source [id number] 06/30/2021 03:57:00 AM [facility] Name Value Range Interpretation Code Description Data Aura rce(s) Supporting Document(s) UA REFLEX TO UA CULTURE [facility] URINALYSIS SOURCE R [facility] COLOR yellow NORMAL: Yellow [facility] ospital CLARITY turbid NORMAL: Clear [facility] spital Specific gravity of Urine by Test strip 1.010 1.001 - 1.030 [facility] 5 - [facility] Glucose [Mass/volume] in Urine by Test strip NORM NORMAL: Negat [facility] Bilirubin.total [Presence] in Urine by Test strip NEG NORMAL: Negative [facility] Ketones [Presence] in Urine by Test strip NEG NORMAL: Negative [facility] Protein [Mass/volume] in Urine by Test strip 30 NORMAL: Negat [facility] Nitrite [Presence] in Urine by Test strip POS NORMAL: Negative [facility] BLOOD 150 NORMAL: Negative [facility] Leukocyte esterase [Presence] in Urine by Test strip 500 VELIA L: Negative [facility] Urobilinogen [Mass/volume] in Urine by Test strip NOR less santa n 1.0 mg/dL [facility] MICROSCOPIC See Below [facility] WBC TNTC NORMAL: NONE SEEN [facility] Erythrocytes [#/volume] in Urine by Test strip 1 - 3 NORMAL: NON E SEEN [facility] EPITHELIAL FEW NORMAL: NONE SEEN [facility] Bacteria [Presence] in Urine sediment by Light microscopy 1+ SMALL NORMAL: NONE SEEN [facility] ID Date Data Source [id number] 06/30/2021 10:46:00 AM [facility] Name Value Range Interpretation Code Description Data Aura rce(s) Supporting Document(s) Hemoglobin A1c/Hemoglobin.total in Blood 8.2 % 4.4 - 6.1 H [facility] {A1]{HB] ID Date Data Source [id number] 06/30/2021 02:24:00 AM [facility] Name Value Range Interpretation Code Description Data Aura rce(s) Supporting Document(s) Magnesium [Mass/volume] in Serum or Plasma 2.0 MG/DL 1.7 - 2.2 [facility] ID Date Data Source [id number] 06/30/2021 02:19:00 AM EST [facility] Name Value Range Interpretation Code Description Data Aura rce(s) Supporting Document(s) COMPREHENSIVE METABOLIC PANEL [facility] COMPREHENSIVE METABOLIC PANEL Sodium [Moles/volume] in Serum or Plasma 141 mEq/L 134 - 153 [facility] Potassium [Moles/volume] in Serum or Plasma 4.3 mEq/L 3.6 - 5.0 [facility] Chloride [Moles/volume] in Serum or Plasma 107 mEq/L 98 - 107 [facility] Carbon dioxide, total [Moles/volume] in Serum or Plasma 24 MEQ/L 22 - 30 [facility] Glucose [Mass/volume] in Serum or Plasma 20 MG/DL 70 - 99 LL [facility] CALL/ READ BACK LT, RN [facility] BY: MLE [facility] DATE/TIME [id number] [facility] BUN 25 MG/DL 7 - 21 [facility] Creatinine [Mass/volume] in Serum or Plasma 0.8 MG/DL 0.7 - 1.5 [facility] BUN/CREAT 31 8 - 27 H [facility] al Protein [Mass/volume] in Serum or Plasma 7.5 G/DL 6.3 - 8.2 [facility] Albumin [Mass/volume] in Serum or Plasma 3.5 G/DL 3.9 - 5.0 L [facility] Globulin [Mass/volume] in Serum by calculation 4.0 GM/DL 2.4 - 3.2 H [facility] A/G RATIO 0.9 0.8 - 2.0 [facility] al Calcium [Mass/volume] in Serum or Plasma 9.6 MG/DL 8.4 - 10.2 [facility] Bilirubin.total [Mass/volume] in Serum or Plasma <0.7 MG/DL 0.2 - 1.3 [facility] Alkaline phosphatase [Enzymatic activity/volume] in Serum or Plasma 121 U/L 38 - 126 [facility] Aspartate aminotransferase [Enzymatic activity/volume] in Serum or Plasma 21 U/L 5 - 40 [facility] Alanine aminotransferase [Enzymatic activity/volume] in Seru m or Plasma 23 U/L 7 - 56 [facility] Anion gap 3 in Serum or Plasma 10.0 mmol/L 8.0 - 16.0 [facility] AGE 81 yrs [facility] NON-AA GFR >60 mL/min [facility] H[facility] ital AFR AMER GFR >60 [facility]ital Male GFR In terprentation 20-49 yrs >60 mL/min Normal 50-59 yrs >56 mL/min Normal 60-69 yrs >49 mL/min Normal 70-79yrs >42 mL/min Normal 80 and above >35 mL/min Normal Female GFR Interpretation 20-39 yrs >60 mL/min Normal 40-49 yrs >58 mL/min Normal 50-59 yrs >51 mL/min Normal 60-69 yrs >45 mL/min Normal 70-79 yrs >39 mL/min Normal 80 and above >32 mL/min Normal ID Date Data Source [id number] 06/30/2021 01:59:00 AM EST [facility] Name Value Range Interpretation Code Description Data Aura rce(s) Supporting Document(s) CBC W/AUTOMATED DIFF [facility] COMPLETE BLOOD COUNT Leukocytes [#/volume] in Blood by Automated count 11.0 10^3/uL 4.2 - 11.0 [facility] Erythrocytes [#/volume] in Blood by Automated count 3.60 10^6/uL 4. 20 - 5.40 L [facility] Hemoglobin [Mass/volume] in Blood 10.2 g/dL 12.0 - 16.0 L [facility] Hematocrit [Volume Fraction] of Blood by Automated count 33.3 % 3 7.0 - 47.0 L [facility] Erythrocyte mean corpuscular volume [Entitic volume] by Auto mated count 92.5 fL 81.0 - 101 [facility] Erythrocyte mean corpuscular hemoglobin [Entitic mass] by Automated count 28.3 pg 27.0 - 34.0 [facility] Erythrocyte mean corpuscular hemoglobin concentration [Mass/volume] by Automated count 30.6 g/dL 31.0 - 36.0 L [facility] Erythrocyte distribution width [Ratio] by Automated count 16.1 % 11.5 - 14.5 H [facility] Platelets [#/volume] in Blood by Automated count 383 10^3/uL 150 - 45 0 [facility] Platelet mean volume [Entitic volume] in Blood by Automated count 9.9 fL 7.4 - 10.4 [facility] Neutrophils/100 leukocytes in Blood by Automated count 65.2 % 37. 0 - 80.0 [facility] Lymphocytes/100 leukocytes in Blood by Manual count 25.2 % 25.0 - 40.0 [facility] Monocytes/100 leukocytes in Blood by Automated count 8.1 % 3.0 - 8.0 H [facility] Eosinophils/100 leukocytes in Blood by Automated count 0.7 % 0.0 - 7.0 [facility] Basophils/100 leukocytes in Blood by Automated count 0.5 % 0.0 - 2.5 [facility] %IG 0.3 % 0.0 - 0.0 H [facility] Hospit [facility] %NRBC 0.0 % 0.0 - 0.0 [facility] al Neutrophils [#/volume] in Blood by Automated count 7.20 10^3/uL 2.00 - 6.90 H [facility] Lymphocytes [#/volume] in Blood by Automated count 2.78 10^3/uL 0.60 - 3.40 [facility] Monocytes [#/volume] in Blood by Automated count 0.89 10^3/uL 0.00 - 0.90 [facility] Eosinophils [#/volume] in Blood by Automated count 0.08 10^3/uL 0.00 - 0.70 [facility] Basophils [#/volume] in Blood by Automated count 0.06 10^3/uL 0.00 - 0.20 [facility] #IG 0.03 10^3/uL 0.00 - 0.10 [facility] ospital #NRBC 0.00 10^3/uL 0.00 - 0.00 [facility] MANUAL DIFF NOT INDICATED [facility] RBC MORPH NOT INDICATED [facility] spital ID Date Data Source [id number] 06/27/2021 06:20:00 PM EDT [facility] [address] [place] [address] PHONE: [phone] FAX: [phone] Name ..............: TRACEY WILKINSON Acct Number ...........................: [id number] ROOM. ............: TR-03 MR Number ............................: [id number] Stay type.........: E/R Discharge Date...............:06/27/21 Admit Date .....: 06/27/21 Admit Phys .............................: GERMANIA WILDER Date of ..: 1940 Family Phys ...........................: NO PCP Phone..............: [phone] Age.................................:81 Film# ...............:[id number] Sex.................................:F Unsigned transcriptions are preliminary reports and do [id number] [id number] COMPLETE:06/27/21 16:30 [place] [id number] Please See Scanned Results. Name Value Range Interpretation Code Description Data Aura rce(s) Supporting Document(s) ID Date Data Source [id number] 06/27/2021 11:09:00 AM EDT [facility] [address] [place] [address] PHONE: [phone] FAX: [phone] Name .................. : TRACEY JANUARY Acct Number.................. : [id number] ROOM. ................. : TR-03 MR Number ................... : [id number] Stay type ............. : E/R Discharge Date......... ... : Admit Date ......... : 06/27/21 Admit Phys .................... : GERMANIA WILDER Date of ....... : 1940 Family Phys ................... : NO PCP Phone .................. : [phone] Age ................................ : 81 Film# .................. .:[id number] Sex ................................. : F Unsigned transcriptions are preliminary reports and do not represent a medical or legal document CT HEAD W/O CONTRAST [id number] COMPLETE:06/27/21 07:09 AML [id number] Reason(s): Altered Mental Status CT BRAIN WITHOUT IV CONTRAST INDICATION: Altered mental status, confusion, disorientation, memory loss. COMPARISON: None CONTRAST: None One or more of the following dose reduction techniques were utilized in effectively lowering the radiation dose for this examination: Automated Exposure Control, Adjustment of the mA and/or kV according to patient size, or Iterative Reconstruction. FINDINGS: Ventricles and sulci are moderately prominent within normal limits for the patient's age. Fox white differentiation is intact. No extra-axial collection. No acute infarct or hemorrhage. Patchy decreased density is seen in the periventricular and subcortical white matter which is nonspecific but most likely due to chronic small vessel ischemic change. No mass or mass effect. Calvarium and skull base are within normal limits. To the extent included sinuses are clear. IMPRESSION: Atrophy and chronic small vessel ischemic change, otherwise negative. Preliminary report for this exam was provided by Emily. Page 1 of 2 [facility] [address] [place] [address] PHONE: [phone] FAX: [phone] Name .................. : TRACEY JAJA Acct Number.................. : [id number] ROOM. ................. : TR-03 MR Number .. ................. : [id number] Stay type ............. : E/R Discharge Date......... ... : Admit Date ......... : 06/27/21 Admit Phys .................... : GERMANIA HDZ Date of ....... : 1940 Family Phys ................... : NO PCP Phone .................. : [phone] Age ................................ : 81 Film# .................. .:[id number] Sex ................................. : F Unsigned transcriptions are preliminary reports and do not represent a medical or legal document CT HEAD W/O CONTRAST [id number] COMPLETE:06/27/21 07:09 AML [id number] Reason(s): Altered Mental Status Electronically Reviewed and Signed By Yony Coates MD , 06/27/21 11:09, CHRISTIE Transcribe Initials: SSR, Transcribe Date: 06/27/21 08:33, Dictation Date: Copy for: 010 EMERGENCY SRV Copy for: 710 MED REC Page 2 of 2 Name Value Range Interpretation Code Description Data Aura rce(s) Supporting Document(s) ID Date Data Source [id number] 06/27/2021 11:09:00 AM EDT [facility] [address] [place] [address] PHONE: [phone] FAX: [phone] Name .................. : TRACEY JANUARY Acct Number.................. : [id number] ROOM. ................. : TR03 MR Number ................... : [id number] Stay type ............. : E/R Discharge Date......... ... : Admit Date ......... : 06/27/21 Admit Phys .................... : GERMANIA HDZ Date of ....... : 1940 Family Phys ................... : NO PCP Phone .................. : [phone] Age ................................ : 81 Film# .................. .:[id number] Sex ................................. : F Unsigned transcriptions are preliminary reports and do not represent a medical or legal document CHEST PORTABLE [id number] COMPLETE:06/27/21 07:09 AML 35404 Reason(s): Shortness of Breath PORTABLE CHEST SINGLE VIEW OBTAINED AT 6:59 AM HISTORY: Shortness of breath COMPARISON: None. FINDINGS: The heart is mildly enlarged. The pulmonary vessels are within n ormal limits. Lungs are clear. No pulmonary edema. No pleural effusions or pneumothorax. IMPRESSION: Mild cardiomegaly. No acute disease. Electronically Reviewed and Signed By Yony Coates MD , 06/27/21 11:09, CHRISTIE Transcribe Initials: SSR, Transcribe Date: 06/27/21 08:32, Dictation Date: Copy for: 010 EMERGENCY SRV Copy for: 710 MED REC Page 1 of 1 Name Value Range Interpretation Code Description Data Aura rce(s) Supporting Document(s) ID Date Data Source [id number] 06/27/2021 09:16:00 AM EDT [facility] Name Value Range Interpretation Code Description Data Aura rce(s) Supporting Document(s) UA REFLEX TO UA CULTURE [facility] URINALYSIS SOURCE R [facility] COLOR yellow NORMAL: Yellow [facility] CLARITY clear NORMAL: Clear [facility] Specific gravity of Urine by Test strip 1.015 1.001 - 1.030 [facility] 5 5 - [facility] Glucose [Mass/volume] in Urine by Test strip NORM NORMAL: Negat [facility] Bilirubin.total [Presence] in Urine by Test strip NEG NORMAL: Negative [facility] Ketones [Presence] in Urine by Test strip NEG NORMAL: Negative [facility] Protein [Mass/volume] in Urine by Test strip 15 NORMAL: Negat [facility] Nitrite [Presence] in Urine by Test strip NEG NORMAL: Negative [facility] BLOOD NEG NORMAL: Negative [facility] Leukocyte esterase [Presence] in Urine by Test strip NEG VELIA L: Negative [facility] Urobilinogen [Mass/volume] in Urine by Test strip NOR less santa n 1.0 mg/dL [facility] MICROSCOPIC See Below [facility] WBC 1 - 3 NORMAL: NONE SEEN [facility] Erythrocytes [#/volume] in Urine by Test strip 0 - 1 NORMAL: NON E SEEN [facility] EPITHELIAL FEW NORMAL: NONE SEEN [facility] Bacteria [Presence] in Urine sediment by Light microscopy 1+ SMALL NORMAL: NONE SEEN [facility] Mucus [Presence] in Urine sediment by Light microscopy Trace NORMAL: NONE SEEN [facility] Amorphous sediment [Presence] in Urine sediment by Light hector roscopy RARE NORMAL: NONE SEEN [facility] Casts [#/area] in Urine sediment by Microscopy low power field N ot Indicated [facility] Crystals [type] in Urine sediment by Light microscopy Not Indicated [facility] YEAST None Seen [facility] al ID Date Data Source [id number] 06/27/2021 07:21:00 AM EDT [facility] Name Value Range Interpretation Code Description Data Aura rce(s) Supporting Document(s) BNP 556 PG/ML 0 - 450 [facility] ID Date Data Source [id number] 06/27/2021 07:21:00 AM EDT [facility] Name Value Range Interpretation Code Description Data Aura rce(s) Supporting Document(s) Lipase [Enzymatic activity/volume] in Serum or Plasma 11 U/L 13 - 60 L [facility] ID Date Data Source [id number] 06/27/2021 07:21:00 AM EDT [facility] Name Value Range Interpretation Code Description Data Aura rce(s) Supporting Document(s) COMPREHENSIVE METABOLIC PANEL [facility] COMPREHENSIVE METABOLIC PANEL Sodium [Moles/volume] in Serum or Plasma 136 mEq/L 134 - 153 [facility] Potassium [Moles/volume] in Serum or Plasma 5.4 mEq/L 3.6 - 5.0 H [facility] Chloride [Moles/volume] in Serum or Plasma 103 mEq/L 98 - 107 [facility] Carbon dioxide, total [Moles/volume] in Serum or Plasma 22 MEQ/L 22 - 30 [facility] Glucose [Mass/volume] in Serum or Plasma 103 MG/DL 70 - 99 H [facility] BUN 44 MG/DL 7 - 21 H [facility] al Creatinine [Mass/volume] in Serum or Plasma 1.0 MG/DL 0.7 - 1.5 [facility] BUN/CREAT 44 8 - 27 H [facility] Protein [Mass/volume] in Serum or Plasma 7.5 G/DL 6.3 - 8.2 [facility] Albumin [Mass/volume] in Serum or Plasma 3.5 G/DL 3.9 - 5.0 L [facility] Globulin [Mass/volume] in Serum by calculation 4.0 GM/DL 2.4 - 3.2 H [facility] A/G RATIO 0.9 0.8 - 2.0 [facility] Calcium [Mass/volume] in Serum or Plasma 9.1 MG/DL 8.4 - 10.2 [facility] Bilirubin.total [Mass/volume] in Serum or Plasma <0.7 MG/DL 0.2 - 1.3 [facility] Alkaline phosphatase [Enzymatic activity/volume] in Serum or Plasma 135 U/L 38 - 126 H [facility] Aspartate aminotransferase [Enzymatic activity/volume] in Serum or Plasma 25 U/L 5 - 40 [facility] Alanine aminotransferase [Enzymatic activity/volume] in Seru m or Plasma 29 U/L 7 - 56 [facility] Anion gap 3 in Serum or Plasma 11.0 mmol/L 8.0 - 16.0 [facility] AGE 81 yrs [facility] al NON-AA GFR 56 mL/min [facility] AFR AMER GFR >60 [facility] Male GFR In terprentation 20-49 yrs >60 mL/min Normal 50-59 yrs >56 mL/min Normal 60-69 yrs >49 mL/min Normal 70-79yrs >42 mL/min Normal 80 and above >35 mL/min Normal Female GFR Interpretation 20-39 yrs >60 mL/min Normal 40-49 yrs >58 mL/min Normal 50-59 yrs >51 mL/min Normal 60-69 yrs >45 mL/min Normal 70-79 yrs >39 mL/min Normal 80 and above >32 mL/min Normal ID Date Data Source [id number] 06/27/2021 07:07:00 AM EDT [facility] Name Value Range Interpretation Code Description Data Aura rce(s) Supporting Document(s) Thyrotropin [Units/volume] in Serum or Plasma by Detec tion limit <= 0.05 mIU/L 1.96 uIU/mL 0.47 - 5.01 [facility] ID Date Data Source [id number] 06/27/2021 06:58:00 AM EDT [facility] Name Value Range Interpretation Code Description Data Aura rce(s) Supporting Document(s) TROPONIN T <0.01 NG/ML 0.00 - 0.10 [facility]spital TROPONIN T0.1 ng/ml Recommended as the c linical threshold value forTroponin T. ID Date Data Source [id number] 06/27/2021 06:49:00 AM T [facility] Name Value Range Interpretation Code Description Data Aura rce(s) Supporting Document(s) CBC W/AUTOMATED DIFF [facility] COMPLETE BLOOD COUNT Leukocytes [#/volume] in Blood by Automated count 12.2 10^3/uL 4.2 - 11.0 H [facility] Erythrocytes [#/volume] in Blood by Automated count 3.56 10^6/uL 4. 20 - 5.40 L [facility] Hemoglobin [Mass/volume] in Blood 10.1 g/dL 12.0 - 16.0 L [facility] Hematocrit [Volume Fraction] of Blood by Automated count 32.7 % 3 7.0 - 47.0 L [facility] Erythrocyte mean corpuscular volume [Entitic volume] by Auto mated count 91.9 fL 81.0 - 101 [facility] Erythrocyte mean corpuscular hemoglobin [Entitic mass] by Automated count 28.4 pg 27.0 - 34.0 [facility] Erythrocyte mean corpuscular hemoglobin concentration [Mass/volume] by Automated count 30.9 g/dL 31.0 - 36.0 L [facility] Erythrocyte distribution width [Ratio] by Automated count 16.3 % 11.5 - 14.5 H [facility] Platelets [#/volume] in Blood by Automated count 444 10^3/uL 150 - 45 0 [facility] Platelet mean volume [Entitic volume] in Blood by Automated count 10.1 fL 7.4 - 10.4 [facility] Neutrophils/100 leukocytes in Blood by Automated count 78.6 % 37. 0 - 80.0 [facility] Lymphocytes/100 leukocytes in Blood by Manual count 13.3 % 25.0 - 40.0 L [facility] Monocytes/100 leukocytes in Blood by Automated count 6.5 % 3.0 - 8.0 [facility] Eosinophils/100 leukocytes in Blood by Automated count 0.7 % 0.0 - 7.0 [facility] Basophils/100 leukocytes in Blood by Automated count 0.4 % 0.0 - 2.5 [facility] %IG 0.5 % 0.0 - 0.0 [facility] %NRBC 0.0 % 0.0 - 0.0 [facility] al Neutrophils [#/volume] in Blood by Automated count 9.61 10^3/uL 2.00 - 6.90 H [facility] Lymphocytes [#/volume] in Blood by Automated count 1.63 10^3/uL 0.60 - 3.40 [facility] Monocytes [#/volume] in Blood by Automated count 0.80 10^3/uL 0.00 - 0.90 [facility] Eosinophils [#/volume] in Blood by Automated count 0.08 10^3/uL 0.00 - 0.70 [facility] Basophils [#/volume] in Blood by Automated count 0.05 10^3/uL 0.00 - 0.20 [facility] #IG 0.06 10^3/uL 0.00 - 0.10 [facility]spital #NRBC 0.00 10^3/uL 0.00 - 0.00 [facility] MANUAL DIFF NOT INDICATED [facility] RBC MORPH NOT INDICATED [facility] ID Date Data Source [id number] 06/13/2021 04:46:00 PM EDT [facility] Name Value Range Interpretation Code Description Data Aura rce(s) Supporting Document(s) SARS coronavirus 2 RNA [Presence] in Res piratory specimen by ARLETTE with probe detection NEGATIVE [facility] This lab was ordered by [facility] a nd reported by [facility]. ID Date Data Source [id number] 06/09/2021 07:26:00 PM EDT [facility] Name Value Range Interpretation Code Description Data Aura rce(s) Supporting Document(s) SARS coronavirus 2 RNA [Presence] in Res piratory specimen by ARLETTE with probe detection NEGATIVE [facility] This lab was ordered by [facility] a nd reported by [facility]. ID Date Data Source [id number] 05/06/2021 08:00:00 AM EDT [facility] ([facility]) Name Value Range Interpretation Code Description Data Aura rce(s) Supporting Document(s) Microalbumin Urine 83.9 mg/L 1.3-20.0 [facility] ([facility]) Urine Creatinine 78.3 mg/dL 30.0-125.0 [facility] ([facility]) Microalb/Creat Ratio 107.2 ug/mg 0.0-30.0 [facility] ([facility]) ID Date Data Source [id number] 05/03/2021 02:31:00 PM EDT [facility] ([facility]) Name Value Range Interpretation Code Description Data Aura rce(s) Supporting Document(s) Glucose [Mass/volume] in Serum or Plasma 167 mg/dL 74-99 [facility] ([facility]) 100-125 mg/dL PRE-DIABETES/FASTING >126 mg/dL DIABETES/FASTING Urea nitrogen [Mass/volume] in Serum or Plasma 24 mg/dL 7-18 [facility] ([facility]) Creatinine 1.0 mg/dL 0.6-1.3 [facility] Sodium [Moles/volume] in Serum or Plasma 142 meq/L 136-145 [facility] ([facility]) Potassium [Moles/volume] in Serum or Plasma 4.1 meq/L 3.5-5.1 [facility] ([facility]) Chloride [Moles/volume] in Serum or Plasma 106 meq/L 98-107 [facility] ([facility]) Carbon dioxide, total [Moles/volume] in Serum or Plasma 26 meq/L 21 -32 [facility] ([facility]) Alkaline phosphatase isoenzyme [Units/volume] in Serum or Pl asma 134 mg/dL 46-116 [facility] ([facility]) Calcium [Mass/volume] in Serum or Plasma 9.1 mg/dL 8.5-10.1 [facility] ([facility]) Aspartate aminotransferase [Enzymatic activity/volume] in Serum or Plasma 33 U/L 15-37 [facility] ([facility] ) Alanine aminotransferase [Enzymatic activity/volume] in Seru m or Plasma 27 U/L 12-78 [facility] ([facility]) Total Bilirubin 0.7 mg/dL 0.2-1.0 [facility] ([facility]) A/G Ratio 0.76 CALC 1.00-1.90 [facility] Proteinase 3 Ab [Units/volume] in Serum 8.8 g/dL 6.4-8.2 [facility] ([facility]) Albumin [Mass/volume] in Serum or Plasma 3.8 g/dL 3.4-5.0 [facility] ([facility]) Glomerular filtration rate/1.73 sq M pre dicted among blacks [Volume Rate/Area] in Serum or Plasma by Creatinine-based formula (MDRD) Laboratory test result [facility] <content>CHRONIC KIDNEY DISEASE STAGING PER NKF</content>
<content></content>
<content>STAGE I & II GFR >= 60 NORMAL TO MILDLY DECREASED</content>
<content>STAGE III GFR 30-59 MODERATELY DECREASED</content>
<content>STAGE IV GFR 15-29 SEVERELY DECREASED</content>
<content>STAGE V GFR <15 VERY LITTLE GFR LEFT</content>
<content>ESRD GFR <15 ON LICENSED PROSTHETIST</content>
<content></content> Glomerular filtration rate/1.73 sq M pre dicted among non-blacks [Volume Rate/Area] in Serum or Plasma by Creatinine-based formula (MDRD) 53 mL/min [facility] ([facility]) ID Date Data Source [id number] 05/03/2021 02:31:00 PM EDT [facility] ([facility]) Name Value Range Interpretation Code Description Data Aura rce(s) Supporting Document(s) Hemoglobin A1c/Hemoglobin.total in Blood 8.0 % [facility] Lab Result Notes: Pre-Diabetes 5.7 - 6.4 % Diabetes = or > 6.5% Glucose mean value [Mass/volume] in Blood Estimated fr om glycated hemoglobin 183 mg/dL 60-110 [facility] ([facility] ID Date Data Source [id number] 05/03/2021 02:31:00 PM EDT [facility] Name Value Range Interpretation Code Description Data Aura rce(s) Supporting Document(s) Leukocytes [#/volume] in Blood by Automated count 9.1 x10*3/UL 4.1-10 .9 [facility] ([facility] Hemoglobin [Mass/volume] in Blood 9.4 g/dL 12.0-18.0 [facility] NOTE: RESULT VERIFIED. Erythrocytes [#/volume] in Blood by Automated count 3.32 x10*6/UL 4.2 0-6.30 [facility] ([facility] Hematocrit [Volume Fraction] of Blood by Automated count 29.0 % 3 7.0-51.0 [facility] ([facility]) MCV 87.4 fL 80.0-97.0 [facility] ([facility]) Erythrocyte distribution width [Ratio] by Automated count 15.0 % 11.6-13.7 [facility] ([facility] MCHC 32.5 g/dL 31.0-38.0 [facility] ([facility]) MCH 28.4 pg 26.0-32.0 [facility] ([facility]) Lymph % 28.2 % 10.0-58.5 [facility] ([facility]) MPV 8.5 FL 7.8-11.0 [facility] ([facility]) Platelets [#/volume] in Blood by Automated count 309 x10*3/UL 140-440 [facility] Neut % 65.0 % 37.0-92.0 [facility] [facility] Lymph # 2.5 x10*3/UL 0.6-4.1 [facility] ([facility]) Mid % 6.8 % 1.7-9.3 [facility] ([facility]) Mid # 0.7 x10*3/UL 0.1-0.6 [facility] ([facility]) Neut # 5.9 x10*3/UL 2.0-7.8 [facility] ([facility]) ID Date Data Source [id number] 05/03/2021 02:31:00 PM EDT [facility] Name Value Range Interpretation Code Description Data Aura rce(s) Supporting Document(s) Hemoglobin A1c/Hemoglobin.total in Blood Laboratory test result [facility] ([facility]) ID Date Data Source [id number] 04/19/2021 10:54:00 AM EDT [facility] ([facility]) Name Value Range Interpretation Code Description Data Aura rce(s) Supporting Document(s) Ferritin [Mass/volume] in Serum or Plasma 38 ng/mL 8-252 [facility] ID Date Data Source [id number] 04/19/2021 10:54:00 AM EDT [facility] ([facility]) Name Value Range Interpretation Code Description Data Aura rce(s) Supporting Document(s) Iron (Fe) 49 ug/dL 50-170 [facility] ([facility]) Percent Saturation 13.2 % 13.2-45.0 [facility] ([facility]) Total Iron Binding Capacity 371 ug/dL 250-450 [facility] ([facility]) ID Date Data Source [id number] 04/19/2021 10:53:00 AM EDT [facility] ([facility]) Name Value Range Interpretation Code Description Data Aura rce(s) Supporting Document(s) Hemoglobin [Mass/volume] in Blood 9.9 g/dL 12.0-18.0 [facility] ([facility]) Leukocytes [#/volume] in Blood by Automated count 9.4 x10*3/UL 4.1-10 .9 [facility] ([facility]) NOTE: CBC VERIFIED Erythrocytes [#/volume] in Blood by Automated count 3.49 x10*6/UL 4.2 0-6.30 [facility] ([facility]) Hematocrit [Volume Fraction] of Blood by Automated count 30.3 % 3 7.0-51.0 [facility] ([facility]) MCV 86.9 fL 80.0-97.0 [facility] [facility] MCH 28.6 pg 26.0-32.0 [facility] ([facility]) Erythrocyte distribution width [Ratio] by Automated count 14.8 % 11.6-13.7 [facility] ([facility]) MCHC 32.9 g/dL 31.0-38.0 [facility] [facility] Platelets [#/volume] in Blood by Automated count 313 x10*3/UL 140-440 [facility] ([facility]) MPV 8.7 FL 7.8-11.0 [facility] [facility] Lymph % 21.0 % 10.0-58.5 [facility] [facility] Mid % 6.0 % 1.7-9.3 [facility] [facility] Neut % 73.0 % 37.0-92.0 [facility] ([facility]) Lymph # 1.9 x10*3/UL 0.6-4.1 [facility] ([facility]) Mid # 0.6 x10*3/UL 0.1-0.6 [facility] ([facility]) Neut # 6.9 x10*3/UL 2.0-7.8 [facility] ([facility]) ID Date Data Source [id number] 2021 10:14:00 AM EDT [facility] ([facility]) Name Value Range Interpretation Code Description Data Aura rce(s) Supporting Document(s) Hemoglobin [Mass/volume] in Blood 9.6 g/dL 12.0-18.0 [facility] ([facility]) Leukocytes [#/volume] in Blood by Automated count 9.7 x10*3/UL 4.1-10 .9 [facility] ([facility]) NOTE: CBC VERIFIED Erythrocytes [#/volume] in Blood by Automated count 3.27 x10*6/UL 4.2 0-6.30 [facility] ([facility]) MCH 29.3 pg 26.0-32.0 [facility] ([facility]) Hematocrit [Volume Fraction] of Blood by Automated count 28.4 % 3 7.0-51.0 [facility] ([facility] MCV 86.9 fL 80.0-97.0 [facility] ([facility]) Erythrocyte distribution width [Ratio] by Automated count 14.8 % 11.6-13.7 [facility] ([facility] MCHC 33.7 g/dL 31.0-38.0 [facility] ([facility]) Platelets [#/volume] in Blood by Automated count 351 x10*3/UL 140-440 [facility] Lymph % 21.2 % 10.0-58.5 [facility] ([facility]) MPV 8.5 FL 7.8-11.0 [facility] ([facility]) Mid % 6.4 % 1.7-9.3 [facility] ([facility]) Lymph # 2.0 x10*3/UL 0.6-4.1 [facility] ([facility]) Mid # 0.7 x10*3/UL 0.1-0.6 [facility] ([facility]) Neut % 72.4 % 37.0-92.0 [facility] ([facility]) Neut # 7.0 x10*3/UL 2.0-7.8 [facility] ([facility]) ID Date Data Source [id number] 2021 10:14:00 AM EDT [facility] ([facility]) Name Value Range Interpretation Code Description Data Aura rce(s) Supporting Document(s) Glucose [Mass/volume] in Serum or Plasma 92 mg/dL 74-99 [facility] ([facility]) 100-125 mg/dL PRE-DIABETES/FASTING >126 mg/dL DIABETES/FASTING Urea nitrogen [Mass/volume] in Serum or Plasma 20 mg/dL 7-18 [facility] ([facility]) Creatinine 1.0 mg/dL 0.6-1.3 [facility] Sodium [Moles/volume] in Serum or Plasma 140 meq/L 136-145 [facility] ([facility]) Potassium [Moles/volume] in Serum or Plasma 4.2 meq/L 3.5-5.1 [facility] ([facility]) Chloride [Moles/volume] in Serum or Plasma 105 meq/L 98-107 [facility] ([facility]) Calcium [Mass/volume] in Serum or Plasma 9.6 mg/dL 8.5-10.1 [facility] ([facility]) Carbon dioxide, total [Moles/volume] in Serum or Plasma 27 meq/L 21 -32 [facility] ([facility]) Alkaline phosphatase isoenzyme [Units/volume] in Serum or Pl asma 132 mg/dL 46-116 [facility] ([facility]) Total Bilirubin 0.4 mg/dL 0.2-1.0 [facility] ([facility]) Aspartate aminotransferase [Enzymatic activity/volume] in Serum or Plasma 17 U/L 15-37 [facility] ([facility] ) Alanine aminotransferase [Enzymatic activity/volume] in Seru m or Plasma 23 U/L 12-78 [facility] ([facility]) Albumin [Mass/volume] in Serum or Plasma 3.5 g/dL 3.4-5.0 [facility] ([facility]) Proteinase 3 Ab [Units/volume] in Serum 7.8 g/dL 6.4-8.2 [facility] ([facility]) A/G Ratio 0.81 CALC 1.00-1.90 [facility] Glomerular filtration rate/1.73 sq M pre dicted among blacks [Volume Rate/Area] in Serum or Plasma by Creatinine-based formula (MDRD) Laboratory test result [facility] ([facility]) <content>CHRONIC KIDNEY DISEASE STAGING PER NKF</content>
<content></content>
<content>STAGE I & II GFR >= 60 NORMAL TO MILDLY DECREASED</content>
<content>STAGE III GFR 30-59 MODERATELY DECREASED</content>
<content>STAGE IV GFR 15-29 SEVERELY DECREASED</content>
<content>STAGE V GFR <15 VERY LITTLE GFR LEFT</content>
<content>ESRD GFR <15 ON LICENSED PROSTHETIST</content>
<content></content> Glomerular filtration rate/1.73 sq M pre dicted among non-blacks [Volume Rate/Area] in Serum or Plasma by Creatinine-based formula (MDRD) 53 mL/min [facility] ([facility]) ID Date Data Source [id number] 2021 10:14:00 AM EDT [facility] Name Value Range Interpretation Code Description Data Aura rce(s) Supporting Document(s) Hemoglobin A1c/Hemoglobin.total in Blood 7.9 % [facility] ([facility]) Lab Result Notes: Pre-Diabetes 5.7 - 6.4 % Diabetes = or > 6.5% Glucose mean value [Mass/volume] in Blood Estimated fr om glycated hemoglobin 180 mg/dL 60-110 [facility] ([facility] ) ID Date Data Source [id number] 2021 10:14:00 AM EDT [facility] Name Value Range Interpretation Code Description Data Aura rce(s) Supporting Document(s) Hemoglobin A1c/Hemoglobin.total in Blood Laboratory test result [facility] ([facility]) ID Date Data Source [id number] 03/26/2021 01:32:00 PM EDT [facility] Name Value Range Interpretation Code Description Data Aura rce(s) Supporting Document(s) Laboratory test finding (navigational concept) 31.0 % 38.0-51.0 [facility] Laboratory test finding (navigational concept) 4.4 meq/L 3.5-5.1 [facility] ([facility]) Laboratory test finding (navigational concept) 141 meq/L 136-145 [facility] Laboratory test finding (navigational concept) 244 mg/dL 70-105 [facility] ([facility]) Laboratory test finding (navigational concept) 4.8 mg/dL 4.5-5.3 [facility] ([facility]) Laboratory test finding (navigational concept) 103 meq/L 98-109 [facility] ([facility]) Laboratory test finding (navigational concept) 26.0 MM/L 23.0-27.0 [facility] ([facility]) Laboratory test finding (navigational concept) 0.7 mg/dL 0.6-1.3 [facility] ([facility]) Laboratory test finding (navigational concept) 18 mg/dL 8-26 [facility] ([facility]) ID Date Data Source [id number] 03/05/2021 03:55:00 PM EDT [facility] 1 Medication Reconciliation Report [facility] Emergency Department [address] [place] [address] Phone #: ext- [phone] 03/05/2021 15:55 Patient: [...] rce(s) Supporting Document(s) ID Date Data Source [id number] 03/05/2021 03:55:00 PM EDT [facility] 1 Medication Administration Record [facility] [address] [place] [address] Phone #: ext- [phone] 03/05/2021 15:55 Patient: JAJA WEBB Sex: F : 1940 Age: 80yWeight: 62.5 kgHeight/Length: 60 inBMI: 26.9ALLERGIES: Codeine Phosphate, AspirinDate/Time Medication Administered Medication Ordered Name Value Range Interpretation Code Description Data Aura rce(s) Supporting Document(s) ID Date Data Source [id number] 03/05/2021 03:55:00 PM EDT [facility] 1 General Instructions [facility] [address] [place] [address] Phone #: ext [phone] 03/05/2021 15:55 Patient: JAJA WEBB Sex: F [...] as instructed below.Home care 2 General Instructions [facility] Department [address] [place] [address] Phone #: ext- [phone] 03/05 15:55 Patient: JAJA WEBB Sex: F [...] or as directed by your healthcare providerCall 911Call 911 for any of these: Chest, arm, neck, jaw, or upper back pain Trouble breathing Numbness or weakness of the face, one arm, or one leg Slurred speech, confusion, or trouble speaking, walking, or seeing Blood in vomit or stool (black or red color) Loss of consciousness Severe headache [id number] [employer]. [address] [place] [address]. All rights reserved. This information is not intended as asubstitute for professional medical care. Always follow your healthcare professional's instructions. You have been given the following additional information: Weakness (Uncertain Cause) 3 General Instructions [facility] Department [address] [place] [address] Phone #: ext- [phone] 03/05/2021 15:55 Patient: JAJA WEBB Sex: F : 1940 Age: 80y(Electronically signed by Velia Telles MD 03/11/2021 19:38) Name Value Range Interpretation Code Description Data Aura rce(s) Supporting Document(s) ID Date Data Source [id number] 03/05/2021 03:55:00 PM EDT [facility] 1 Clinical Report - Nurses [facility] [address] [place] [address] Phone #: ext [phone] 03/05/2021 15:55 Patient: JAJA WEBB Sex: F [...] notification of patient arrival was received. 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 SEPSIS SCREEN: SIRS SCREEN NEGATIVE. SEPSIS SCREEN NEGATIVE. No suspected or confirmed signs of infection present. EMMANUEL COMA SCORE: 15- eyes open- spontaneous (4); [...] Arevalo R.N. 2 Clinical Report - Nurses [facility] [address] [place] [address] Phone #: ext- [phone] 03/05/2021 15:55 Patient: JAJA WEBB Sex: F : 1940 Age: 80yGabapentin Oral [...] 03/05/21 Radha Andre R.N.Codeine Phosphate. --16:01 03/05/21 aRdha Andre R.N.PROBLEMS:Hypertension.Diabetes Mellitus. --16:02 03/05/21 Radha Andre R.N.ADDITIONAL SURGERIES:no known surgeries.Oxjehbl04:02 03/05/21.SOCIAL HX: No alcohol use or drug [...] Verbalizes understanding. 3 Clinical Report - Nurses [facility] [address] [place] [address] Phone #: ext- [phone] 03/05/2021 15:55 Patient: JAJA WEBB Sex: F : 1940 Age: 80y FUNCTIONAL [...] F. Pain level now 0/10. 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 Condition at departure: improved and stable. No learning barriers present. Discharge instructions provided and reviewed with the patient. Patient verbalized understanding. Written instructions provided in Malawian. The patient was discharged by the physician. She was discharged home. She left ambulatory and via ambulance. ( Pt waiting on ambulance for ride home.). --17:40 03/05/21 Josefina Arevalo R.N. 4 Clinical Report - Nurses [facility] [address] [place] [address] Phone #: ext- [phone] 03/05/2021 15:55 Patient: JAJA WEBB Sex: F : 1940 Age: 80y ( [facility] arrives to give patient ride home. Belongings taken with patient, patient alert, stable and smiling at time of leaving dept.). --18:10 03/05/21 Radha Andre R.N.Locked/Released at 03/05/2021 18:11 by Radha Andre R.N. Name Value Range Interpretation Code Description Data Aura rce(s) Supporting Document(s) ID Date Data Source [id number] 03/05/2021 03:55:00 PM EDT [facility] 1 Clinical Report - Physicians/Mid Levels [facility] [address] [place] [address] Phone #: ext- [phone] 03/05/2021 15:55 Patient: [...] daily. 2 Clinical Report - Physicians/Mid Levels [facility] [address] [place] [address] Phone #: [phone] 03/05/2021 15:55 [id number] Sex: F : 1940 Age: 80y NovoLOG [...] weakness. 3 Clinical Report - Physicians/Mid Levels [facility] [address] [place] [address] Phone #: ext- [phone] 03/05/2021 15:55 Patient: [...] of the discharge instructions verbalized.(Electronically signed by Velia Telles MD 03/11/2021 19:38) Name Value Range Interpretation Code Description Data Aura baldwin(s) Supporting Document(s) ID Date Data Source [id number] 02/05/2021 03:08:00 PM EDT [facility] ([facility]) Name Value Range Interpretation Code Description Data Aura rce(s) Supporting Document(s) Venous PH 7.324 units 7.330-7.430 [facility] ([facility]) Venous Partial Pressure Co2 47.1 mmHg 38.0-50.0 [facility] ([facility]) Venous Partial Pressure O2 40.3 mmHg 30.0-50.0 [facility] ([facility]) Venous Total Co2 25.4 meq/L 24.0-28.0 [facility] ([facility] Venous Hco3 23.9 meq/L 23.0-27.0 [facility] ([facility]) Venous Base Excess -2.3 [facility] ([facility]) Venous Standard Hco3 22.0 meq/L [facility] ( [facility]) Venous O2 Saturation 71.9 % 60.0-80.0 [facility] ([facility]) ID Date Data Source [id number] 02/05/2021 03:08:00 PM EDT [facility] ([facility]) Name Value Range Interpretation Code Description Data [facility] rce(s) Supporting Document(s) Ammonia [Mass/volume] in Blood 13 uMOL/L [facility] ID Date Data Source [id number] 02/05/2021 02:43:00 PM EDT [facility] ([facility]) Name Value Range Interpretation Code Description Data [facility] rce(s) Supporting Document(s) Influenza A Amplification Laboratory test result [facility] ([facility]) Negative results do not preclude influen za or RSV virus infection and should not be used as the sole basis for treatment or other patient management decisions. Influenza B Amplification Laboratory test result [facility] ([facility]) Negative results do not preclude influen za or RSV virus infection and should not be used as the sole basis for treatment or other patient management decisions. RSV Amplification Laboratory test result [facility] ([facility]) Negative results do not preclude influen za or RSV virus infection and should not be used as the sole basis for treatment or other patient management decisions. Laboratory test finding (navigational concept) Laboratory test result [facility] ([facility]) A false negative result may occur [...] pathogens. DISCLAIMER: Testing was performed using the [employer] SARS-CoV-2 test. This test was developed and its performance characteristics determined by [employer]. This test has not been FDA cleared [...] or revoked sooner. ID Date Data Source [id number] 02/05/2021 02:43:00 PM EDT [facility] Name Value Range Interpretation Code Description Data Aura rce(s) Supporting Document(s) SARS coronavirus 2 RNA [Presence] in Res piratory specimen by ARLETTE with probe detection NEGATIVE [facility] This lab was ordered by [facility] a nd reported by [facility]. ID Date Data Source [id number] 02/05/2021 11:13:00 AM EDT [facility] ([facility]) Name Value Range Interpretation Code Description Data Aura rce(s) Supporting Document(s) Bedside Glucose 274 mg/dL 83-110 [facility] ([facility]) ID Date Data Source [id number] 02/05/2021 10:59:00 AM EDT [facility] ([facility]) Name Value Range Interpretation Code Description Data Aura rce(s) Supporting Document(s) Lactate [Mass/volume] in Serum or Plasma 1.5 mmol/L 0.4-2.0 [facility] ([facility]) Y/N query for Sepsis Lactate Rule: Y ID Date Data Source [id number] 02/05/2021 10:33:00 AM EDT [facility] ([facility]) Name Value Range Interpretation Code Description Data Aura rce(s) Supporting Document(s) White Blood Count 11.5 10 4.0-10.0 [facility] ([facility]) Red Blood Count 4.05 10 4.00-5.40 [facility] ([facility]) Hemoglobin 11.5 g/dL 12.0-15.5 [facility]) Hematocrit 37.4 % 36.0-47.0 [facility]) Mean Corpuscular Hemoglobin 28.4 pg 27.0-33.0 [facility] ([facility]) Mean Corpuscular Volume 92.3 fl 80.0-96.0 [facility] ([facility]) Mean Corpuscular HGB Conc 30.7 g/dL 32.0-36.5 [facility] ([facility]) Red Cell Distribution Width 16.5 % 11.5-14.5 [facility] ([facility]) Platelet Count, Automated 298 10 150-450 [facility] ([facility]) Neutrophils % 66.2 % 36.0-66.0 [facility]) [place] % 11.8 % 2.0-8.0 [facility]) Lymph % 20.2 % 24.0-44.0 [facility]) Baso % 0.8 % 0.0-1.0 [facility]) Eos % 0.6 % 0.0-3.0 [facility]) Neutrophils # 7.6 10 1.5-8.5 [facility] ([facility]) Immature Granulocyte % 0.4 % 0-3.0 [facility] ([facility]) Nucleated Red Blood Cell % 0.0 % 0-0 [facility] ([facility]) [place] # 1.4 10 0.0-0.8 [facility]) Eos # 0.1 10 0.0-0.5 [facility]) Lymph # 2.3 10 1.5-5.0 [facility]) Baso # 0.1 10 0.0-0.2 [facility] [facility]) ID Date Data Source [id number] 02/05/2021 10:33:00 AM EDT [facility] ([facility]) Name Value Range Interpretation Code Description Data Aura rce(s) Supporting Document(s) CK-MB Value Mass 1.9 ng/mL [facility] ([facility]) MB/CK Relative Index 1.31 [facility] ([facility]) <content>DIAGNOSIS CRITERIA</content>
<content>MMB ng/ml Relative Index (RI)</content>
<content>NON-AMI < or = 5 N/A</content>
<content>FOX ZONE > 5 < or = 4</content>
<content>AMI > 5 > 4</content>
<content></content> CPK Creatine Phosphokinase 145 U/L 26-192 [facility] ([facility]) Troponin I Laboratory test result [facility] ([facility]) <content>Troponin I Reference Interval f or Siemens Aledo LOCI:</content>
<content></content>
<content>99th Percentile= 0.00-0.045 ng/ml</content>
<content></content>
<content>Risk Stratification:</content>
<content><= 0.10 ng/ml Decreased Risk for Adverse Clinical</content>
<content>Events.</content>
<content>0.10-1.50 ng/ml Increased Risk for Adverse Clinical</content>
<content>Events. Evaluation of additional</content>
<content>criterion and/or repeat testing in 2-6</content>
<content>hours is suggested to rule out myocardial</content>
<content>damage.</content>
<content>>= 1.50 ng/ml Indicative of Myocardial Injury.</content>
<content></content> ID Date Data Source [id number] 02/05/2021 10:33:00 AM EDT [facility] ([facility]) Name Value Range Interpretation Code Description Data Aura rce(s) Supporting Document(s) Alt/SGPT 24 U/L 12-78 [facility] [facility]) Alkaline Phosphatase 148 U/L 45-117 [facility] ([facility]) Ast/Sgot 21 U/L 7-37 [facility] ([place] [facility]) Bilirubin,Direct 0.2 mg/dL 0.0-0.2 [facility] ([facility]) Bilirubin,Total 0.8 mg/dL 0.2-1.0 [facility] ([facility]) Total Protein 8.9 GM/DL 6.4-8.2 [facility] ([facility]) Albumin/Globulin Ratio 0.8 1.2-2.2 [facility] ([facility]) Albumin 3.9 GM/DL 3.2-5.2 [facility] [facility]) ID Date Data Source [id number] 02/05/2021 10:33:00 AM EDT [facility] ([facility]) Name Value Range Interpretation Code Description Data Aura rce(s) Supporting Document(s) Blood Urea Nitrogen 22 mg/dL 7-18 [facility] ([facility]) Creatinine For GFR 0.90 mg/dL 0.55-1.30 [facility] ([facility]) Glucose, Fasting 269 mg/dL 70-100 [facility] ([facility]) Potassium Serum 4.6 meq/L 3.5-5.1 [facility] ([facility]) Sodium Level 134 meq/L 136-145 [facility] ([facility]) Glomerular Filtration Rate Laboratory test result [facility] ([facility]) <content>Units are mL/min/1.73 m2</content>
<content></content>
<content>Chronic Kidney Disease Staging per NKF:</content>
<content></content>
<content>Stage I & II GFR >=60 Normal to Mildly Decreased</content>
<content>Stage III GFR 30- 59 Moderately Decreased</content>
<content>Stage IV GFR 15-29 Severely Decreased</content>
<content>Stage V GFR <15 Very Little GFR Left</content>
<content>ESRD GFR <15 on LICENSED PROSTHETIST</content>
<content></content> Carbon Dioxide Level 23 meq/L 21-32 [facility] ([facility]) Anion Gap 8 meq/L 8-16 [facility] [facility]) Chloride Level 103 meq/L 98-107 [facility] ([facility]) Calcium Level 9.8 mg/dL 8.8-10.2 [facility] ([facility]) ID Date Data Source [id number] 02/05/2021 10:33:00 AM EDT [facility] Name Value Range Interpretation Code Description Data Aura rce(s) Supporting Document(s) Thyrotropin [Units/volume] in Serum or Plasma by Detec tion limit <= 0.05 mIU/L 2.130 uIU/ML 0.358-3.740 [facility] ([facility] ) ID Date Data Source [id number] 02/05/2021 10:33:00 AM EDT [facility] ([facility]) Name Value Range Interpretation Code Description Data Aura rce(s) Supporting Document(s) Appearance, Urine RFX Laboratory test result [facility] ([facility]) Color, Urine RFX Laboratory test result [facility]) Specific [place] Ur Auto RFX 1.014 1.002-1.035 [facility]) PH,Urine RFX 5.0 units 5.0-9.0 [facility] ([facility]) Protein, Urine Auto RFX Laboratory test result [facility] ([facility]) Glucose, Urine (Ua) Auto RFX Laboratory test result [facility] ([facility]) Urobilinogen, Urine Auto RFX 0.2 mg/dL 0.0-2.0 [facility] ([facility]) Bilirubin, Urine Auto RFX Laboratory test result [facility] ([facility]) Ketone, Urine Auto RFX Laboratory test result [facility] ([facility]) Leukocyte Esterase Ur Auto RFX Laboratory test result [facility] ([facility]) Nitrite, Urine Auto RFX Laboratory test result [facility] ([facility]) Blood, Urine Blood RFX Laboratory test result [facility] ([facility]) WBC, Urine Auto RFX Laboratory test result 0-3 [facility] ([facility]) Bacteria, Urine Auto RFX Laboratory test result [facility] ([facility]) RBC, Urine Auto RFX 71 /HPF 0-3 [facility] ([facility]) Yeast Like Cell Urine Auto RFX Laboratory test result [facility] ([facility]) Squam Epithelial Cell Ur Aurfx 3 /HPF 0-6 [facility] ([facility]) Hyaline Cast, Urine Auto RFX 0 /LPF 0-1 [facility] ([facility]) ID Date Data Source [id number] 01/02/2021 01:52:00 PM EDT [facility] ([facility]) Name Value Range Interpretation Code Description Data Aura rce(s) Supporting Document(s) Microalbumin Urine 281.2 mg/L 1.3-20.0 [facility] ([facility]) NOTE: diluted and verified Urine Creatinine 265.8 mg/dL 30.0-125.0 [facility] ([facility]) Microalb/Creat Ratio 105.8 ug/mg 0.0-30.0 [facility] ([facility]) ID Date Data Source [id number] 12/31/2020 12:09:00 PM EDT [facility] ([facility]) Name Value Range Interpretation Code Description Data Aura rce(s) Supporting Document(s) Total Iron Binding Capacity 392 ug/dL 250-450 [facility] ([facility]) Iron (Fe) 40 ug/dL 50-170 [facility]) Percent Saturation 10.2 % 13.2-45.0 [facility] ([facility]) ID Date Data Source [id number] 12/31/2020 12:08:00 PM EDT [facility] ([facility]) Name Value Range Interpretation Code Description Data Aura rce(s) Supporting Document(s) Urea nitrogen [Mass/volume] in Serum or Plasma 30 mg/dL 7-18 [facility] ([facility]) Glucose [Mass/volume] in Serum or Plasma 119 mg/dL 74-99 [facility] ([facility]) 100-125 mg/dL PRE-DIABETES/FASTING >126 mg/dL DIABETES/FASTING Sodium [Moles/volume] in Serum or Plasma 143 meq/L 136-145 [facility] ([facility]) Potassium [Moles/volume] in Serum or Plasma 4.6 meq/L 3.5-5.1 [facility] ([facility]) Creatinine 1.1 mg/dL 0.6-1.3 [facility] Chloride [Moles/volume] in Serum or Plasma 108 meq/L 98-107 [facility] ([facility]) Carbon dioxide, total [Moles/volume] in Serum or Plasma 23 meq/L 21 -32 [facility] ([facility]) Glomerular filtration rate/1.73 sq M pre dicted among blacks [Volume Rate/Area] in Serum or Plasma by Creatinine-based formula (MDRD) 58 mL/min [facility]) <content>CHRONIC KIDNEY DISEASE STAGING PER NKF</content>
<content></content>
<content>STAGE I & II GFR >= 60 NORMAL TO MILDLY DECREASED</content>
<content>STAGE III GFR 30-59 MODERATELY DECREASED</content>
<content>STAGE IV GFR 15-29 SEVERELY DECREASED</content>
<content>STAGE V GFR <15 VERY LITTLE GFR LEFT</content>
<content>ESRD GFR <15 ON LICENSED PROSTHETIST</content>
<content></content> Glomerular filtration rate/1.73 sq M pre dicted among non-blacks [Volume Rate/Area] in Serum or Plasma by Creatinine-based formula (MDRD) 48 mL/min [facility]) Calcium [Mass/volume] in Serum or Plasma 8.9 mg/dL 8.5-10.1 [facility] ([facility]) ID Date Data Source [id number] 12/31/2020 12:08:00 PM EDT [facility] ([facility]) Name Value Range Interpretation Code Description Data Aura rce(s) Supporting Document(s) Hemoglobin A1c/Hemoglobin.total in Blood 7.5 % [facility] ([facility]) Lab Result Notes: Pre-Diabetes 5.7 - 6.4 % Diabetes = or > 6.5% Glucose mean value [Mass/volume] in Blood Estimated fr om glycated hemoglobin 169 mg/dL 60-110 [facility] ([facility] ) ID Date Data Source [id number] 12/31/2020 12:08:00 PM EDT [facility] ([facility]) Name Value Range Interpretation Code Description Data Aura rce(s) Supporting Document(s) Erythrocytes [#/volume] in Blood by Automated count 3.63 x10*6/UL 4.2 0-6.30 [facility] ([facility]) Leukocytes [#/volume] in Blood by Automated count 11.7 x10*3/UL 4.1-1 0.9 [facility] ([facility]) Hemoglobin [Mass/volume] in Blood 10.1 g/dL 12.0-18.0 [facility] ([facility]) Hematocrit [Volume Fraction] of Blood by Automated count 31.1 % 3 7.0-51.0 [facility] ([facility]) MCH 27.7 pg 26.0-32.0 [facility] [facility]) MCV 85.7 fL 80.0-97.0 [facility] ([facility]) Erythrocyte distribution width [Ratio] by Automated count 14.2 % 11.6-13.7 [facility] ([facility]) MCHC 32.3 g/dL 31.0-38.0 [facility] ([place] [facility]) MPV 9.1 FL 7.8-11.0 [facility] ([facility]) Platelets [#/volume] in Blood by Automated count 300 x10*3/UL 140-440 [facility] Lymph % 25.9 % 10.0-58.5 [facility] ([place] [facility]) Neut % 68.3 % 37.0-92.0 [facility] ([place] [facility]) Mid % 5.8 % 1.7-9.3 [facility] [facility]) Lymph # 3.0 x10*3/UL 0.6-4.1 [facility] ([facility]) Mid # 0.7 x10*3/UL 0.1-0.6 [facility] ([facility]) Neut # 8.0 x10*3/UL 2.0-7.8 [facility] ([facility]) ID Date Data Source [id number] 09/24/2020 11:22:00 AM EST [facility] ([facility]) Name Value Range Interpretation Code Description Data Aura rce(s) Supporting Document(s) Triglyceride [Mass/volume] in Serum or Plasma 78 mg/dL 30-150 [facility] ([facility]) Cholesterol [Mass/volume] in Serum or Plasma 120 mg/dL 131-200 [facility] ([facility]) Cholesterol in HDL [Mass/volume] in Serum or Plasma 54 mg/dL 35-60 [facility] ([facility]) Cholesterol in LDL [Mass/volume] in Serum or Plasma by calcu lation 50 CALC 50-159 [facility] ([facility]) ID Date Data Source [id number] 09/24/2020 11:22:00 AM EST [facility] ([facility]) Name Value Range Interpretation Code Description Data Aura rce(s) Supporting Document(s) Glucose [Mass/volume] in Serum or Plasma 140 mg/dL 74-99 [facility] ([facility]) 100-125 mg/dL PRE-DIABETES/FASTING >126 mg/dL DIABETES/FASTING Urea nitrogen [Mass/volume] in Serum or Plasma 33 mg/dL 7-18 [facility] ([facility]) NOTE: RESULT VERIFIED. Sodium [Moles/volume] in Serum or Plasma 146 meq/L 136-145 [facility] ([facility]) Potassium [Moles/volume] in Serum or Plasma 4.9 meq/L 3.5-5.1 [facility] ([facility]) Creatinine 1.1 mg/dL 0.6-1.3 [facility] Carbon dioxide, total [Moles/volume] in Serum or Plasma 24 meq/L 21 -32 [facility] ([facility]) Chloride [Moles/volume] in Serum or Plasma 111 meq/L 98-107 [facility] ([facility]) Alkaline phosphatase isoenzyme [Units/volume] in Serum or Pl asma 113 mg/dL 46-116 [facility] ([facility]) Calcium [Mass/volume] in Serum or Plasma 8.6 mg/dL 8.5-10.1 [facility] ([facility]) Total Bilirubin 0.2 mg/dL 0.2-1.0 [facility] ([facility]) Alanine aminotransferase [Enzymatic activity/volume] in Seru m or Plasma 22 U/L 12-78 [facility] ([facility]) Aspartate aminotransferase [Enzymatic activity/volume] in Serum or Plasma 21 U/L 15-37 [facility] ([facility] ) Albumin [Mass/volume] in Serum or Plasma 3.3 g/dL 3.4-5.0 [facility] ([facility]) Proteinase 3 Ab [Units/volume] in Serum 7.8 g/dL 6.4-8.2 [facility] ([facility]) A/G Ratio 0.73 CALC 1.00-1.90 [facility]) Glomerular filtration rate/1.73 sq M pre dicted among blacks [Volume Rate/Area] in Serum or Plasma by Creatinine-based formula (MDRD) 58 mL/min [facility] ([facility]) <content>CHRONIC KIDNEY DISEASE STAGING PER NKF</content>
<content></content>
<content>STAGE I & II GFR >= 60 NORMAL TO MILDLY DECREASED</content>
<content>STAGE III GFR 30-59 MODERATELY DECREASED</content>
<content>STAGE IV GFR 15-29 SEVERELY DECREASED</content>
<content>STAGE V GFR <15 VERY LITTLE GFR LEFT</content>
<content>ESRD GFR <15 ON LICENSED PROSTHETIST</content>
<content></content> Glomerular filtration rate/1.73 sq M pre dicted among non-blacks [Volume Rate/Area] in Serum or Plasma by Creatinine-based formula (MDRD) 48 mL/min [facility] ([facility]) ID Date Data Source [id number] 09/24/2020 11:22:00 AM EST [facility] ([facility]) Name Value Range Interpretation Code Description Data Aura rce(s) Supporting Document(s) Hemoglobin A1c/Hemoglobin.total in Blood 9.2 % [facility] ([facility] Lab Result Notes: Pre-Diabetes 5.7 - 6.4 % Diabetes = or > 6.5% Glucose mean value [Mass/volume] in Blood Estimated fr om glycated hemoglobin 217 mg/dL 60-110 [facility] ([facility] ) ID Date Data Source [id number] 09/24/2020 11:22:00 AM EST [facility] ([facility]) Name Value Range Interpretation Code Description Data Aura rce(s) Supporting Document(s) Leukocytes [#/volume] in Blood by Automated count 10.1 x10*3/UL 4.1-1 0.9 [facility] ([facility]) NOTE: CBC VERIFIED Hemoglobin [Mass/volume] in Blood 9.6 g/dL 12.0-18.0 [facility] ([facility]) Erythrocytes [#/volume] in Blood by Automated count 3.22 x10*6/UL 4.2 0-6.30 [facility] ([facility]) MCV 89.1 fL 80.0-97.0 [facility] [facility]) MCH 29.8 pg 26.0-32.0 [facility] ([facility]) Hematocrit [Volume Fraction] of Blood by Automated count 28.7 % 3 7.0-51.0 [facility] ([facility]) Platelets [#/volume] in Blood by Automated count 261 x10*3/UL 140-440 [facility] Erythrocyte distribution width [Ratio] by Automated count 14.4 % 11.6-13.7 [facility] ([facility]) MCHC 33.4 g/dL 31.0-38.0 [facility] ([place] [facility]) Lymph % 24.3 % 10.0-58.5 [facility] ([place] [facility]) MPV 8.4 FL 7.8-11.0 [facility] Neut % 70.1 % 37.0-92.0 [facility]) Mid % 5.6 % 1.7-9.3 [facility]) Lymph # 2.4 x10*3/UL 0.6-4.1 [facility] ([facility]) Mid # 0.6 x10*3/UL 0.1-0.6 [facility] ([facility]) Neut # 7.1 x10*3/UL 2.0-7.8 [facility] ([facility]) ID Date Data Source [id number] 08/23/2020 05:48:00 PM EST [facility] Name Value Range Interpretation Code Description Data Aura rce(s) Supporting Document(s) SARS coronavirus 2 RNA [Presence] in Res piratory specimen by ARLETTE with probe detection [facility] This lab was ordered by [facility] a nd reported by [facility]. ID Date Data Source [id number] 08/10/2020 05:31:00 PM EST [facility] Name Value Range Interpretation Code Description Data Aura rce(s) Supporting Document(s) SARS coronavirus 2 RNA [Presence] in Res piratory specimen by ARLETTE with probe detection [facility] This lab was ordered by [facility] a nd reported by [facility]. ID Date Data Source [id number] 08/10/2020 01:39:00 PM EST [facility] ([facility]) Name Value Range Interpretation Code Description Data Aura rce(s) Supporting Document(s) Appearance, Urine RFX Laboratory test result [facility] ([facility]) PH,Urine RFX 5.0 units 5.0-9.0 [facility] ([facility]) Color, Urine RFX Laboratory test result [facility] ([facility]) Protein, Urine Auto RFX Laboratory test result [facility] ([facility]) Specific [place] Ur Auto RFX 1.016 1.002-1.035 [facility] ([facility]) Ketone, Urine Auto RFX Laboratory test result [facility] ([facility]) Glucose, Urine (Ua) Auto RFX Laboratory test result [facility] ([facility]) Bilirubin, Urine Auto RFX Laboratory test result [facility]) Urobilinogen, Urine Auto RFX 0.2 mg/dL 0.0-2.0 [facility] ([facility]) Leukocyte Esterase Ur Auto RFX Laboratory test result [facility] ([facility]) Blood, Urine Blood RFX Laboratory test result [facility] ([facility]) Nitrite, Urine Auto RFX Laboratory test result [facility] ([facility]) RBC, Urine Auto RFX 6 /HPF 0-3 [facility] ([facility]) WBC, Urine Auto RFX 1 /HPF 0-3 [facility] ([facility]) Squam Epithelial Cell Ur Aurfx 0 /HPF 0-6 [facility] ([facility]) Bacteria, Urine Auto RFX Laboratory test result [facility] ([facility]) Hyaline Cast, Urine Auto RFX 0 /LPF 0-1 [facility] ID Date Data Source [id number] 08/10/2020 01:39:00 PM EST [facility] ([facility]) Name Value Range Interpretation Code Description Data Aura rce(s) Supporting Document(s) Glucose, Fasting 344 mg/dL 70-100 [facility] ([facility]) Creatinine For GFR 0.93 mg/dL 0.55-1.30 [facility] ([facility]) Blood Urea Nitrogen 19 mg/dL 7-18 [facility] ([facility]) Sodium Level 135 meq/L 136-145 [facility] ([facility]) Glomerular Filtration Rate Laboratory test result [facility] ([facility]) <content>Units are mL/min/1.73 m2</content>
<content></content>
<content>Chronic Kidney Disease Staging per NKF:</content>
<content></content>
<content>Stage I & II GFR >=60 Normal to Mildly Decreased</content>
<content>Stage III GFR 30- 59 Moderately Decreased</content>
<content>Stage IV GFR 15-29 Severely Decreased</content>
<content>Stage V GFR <15 Very Little GFR Left</content>
<content>ESRD GFR <15 on LICENSED PROSTHETIST</content>
<content></content> Potassium Serum 5.0 meq/L 3.5-5.1 [facility] ([facility]) Chloride Level 102 meq/L 98-107 [facility] ([facility]) Anion Gap 10 meq/L 8-16 [facility] ([place] [facility]) Carbon Dioxide Level 23 meq/L 21-32 [facility] ( [facility] Calcium Level 9.3 mg/dL 8.8-10.2 [facility] ([facility]) ID Date Data Source [id number] 08/10/2020 12:26:00 PM EST [facility] ([facility]) Name Value Range Interpretation Code Description Data Aura rce(s) Supporting Document(s) Bedside Glucose 342 mg/dL 83-110 [facility] ([facility]) ID Date Data Source [id number] 08/10/2020 12:21:00 PM EST [facility] ([facility]) Name Value Range Interpretation Code Description Data Aura rce(s) Supporting Document(s) Glucose, Fasting 345 mg/dL 70-100 [facility] ([facility]) Blood Urea Nitrogen 20 mg/dL 7-18 [facility] ([facility]) Creatinine For GFR 0.94 mg/dL 0.55-1.30 [facility] ([facility]) Glomerular Filtration Rate Laboratory test result [facility] ([facility]) <content>Units are mL/min/1.73 m2</content>
<content></content>
<content>Chronic Kidney Disease Staging per NKF:</content>
<content></content>
<content>Stage I & II GFR >=60 Normal to Mildly Decreased</content>
<content>Stage III GFR 30- 59 Moderately Decreased</content>
<content>Stage IV GFR 15-29 Severely Decreased</content>
<content>Stage V GFR <15 Very Little GFR Left</content>
<content>ESRD GFR <15 on LICENSED PROSTHETIST</content>
<content></content> Sodium Level 134 meq/L 136-145 [facility] ([facility]) Chloride Level 102 meq/L 98-107 [facility] ([facility]) Potassium Serum 6.0 meq/L 3.5-5.1 [facility] ([facility]) Testing was performed on a hemolysed spe cimen. Suggest recollection of specimen for more accurate test results. Carbon Dioxide Level 25 meq/L 21-32 [facility] ([facility]) Anion Gap 7 meq/L 8-16 [facility] ([place] [facility]) Calcium Level 9.3 mg/dL 8.8-10.2 [facility] ([facility]) Ast/Sgot 42 U/L 7-37 [facility] ([place] [facility]) Alt/SGPT 26 U/L 12-78 [facility] ([place] [facility]) Alkaline Phosphatase 127 U/L 45-117 [facility] ([facility]) Bilirubin,Total 0.6 mg/dL 0.2-1.0 [facility] ([facility]) Total Protein 7.8 GM/DL 6.4-8.2 [facility] ([facility]) Albumin 3.2 GM/DL 3.2-5.2 [facility] ([place] [facility]) Albumin/Globulin Ratio 0.7 1.2-2.2 [facility] ([facility]) ID Date Data Source [id number] 08/10/2020 12:21:00 PM EST [facility] ([facility]) Name Value Range Interpretation Code Description Data Aura rce(s) Supporting Document(s) Red Blood Count 3.71 10 4.00-5.40 [facility] ([facility]) White Blood Count 14.0 10 4.0-10.0 [facility] ([facility]) Hemoglobin 10.3 g/dL 12.0-15.5 [facility] Mean Corpuscular Volume 91.6 fl 80.0-96.0 [facility] ([facility]) Hematocrit 34.0 % 36.0-47.0 [facility] Mean Corpuscular HGB Conc 30.3 g/dL 32.0-36.5 [facility] ([facility]) Mean Corpuscular Hemoglobin 27.8 pg 27.0-33.0 [facility] ([facility]) Red Cell Distribution Width 15.4 % 11.5-14.5 [facility] ([facility]) Platelet Count, Automated 260 10 150-450 [facility] ([facility]) Nucleated Red Blood Cell % 0.0 % 0-0 [facility] ([facility]) ID Date Data Source [id number] 08/10/2020 12:21:00 PM EST [facility] ([facility]) Name Value Range Interpretation Code Description Data Aura rce(s) Supporting Document(s) Acetone/Ketone 22.73 mg/dL [facility] ([facility]) ID Date Data Source [id number] 08/10/2020 12:21:00 PM EST [facility] ([facility]) Name Value Range Interpretation Code Description Data Aura rce(s) Supporting Document(s) Venous Partial Pressure Co2 52.5 mmHg 38.0-50.0 [facility] ([facility]) Venous PH 7.311 units 7.330-7.430 [facility] ([facility]) Venous Total Co2 27.5 meq/L 24.0-28.0 [facility] ([facility]) Venous Partial Pressure O2 49.0 mmHg 30.0-50.0 [facility] ([facility]) Venous Hco3 25.9 meq/L 23.0-27.0 [facility] ([facility]) Venous Base Excess -0.8 [facility] ([facility]) Venous Standard Hco3 23.5 meq/L [facility] ( [facility]) Venous O2 Saturation 81.4 % 60.0-80.0 [facility] ([facility]) ID Date Data Source [id number] 08/10/2020 12:21:00 PM EST [facility] ([facility]) Name Value Range Interpretation Code Description Data Aura rce(s) Supporting Document(s) Hemoglobin A1c 10.8 % [facility] ([facility]) <content>REFERENCE RANGES:</content><br/ ><content></content>
<content><=5.6% NORMAL</content>
<content>5.7-6.4% SUGGESTS IMPAIRED GLUCOSE METABOLISM/PREDIABETIC</content>
<content>>= 6.5% ABNORMAL</content>
<content></content> Estimated Average Glucose 263 mg/dL 60-110 [facility] ([facility]) ID Date Data Source [id number] 08/10/2020 12:21:00 PM EST [facility] ([facility]) Name Value Range Interpretation Code Description Data Aura rce(s) Supporting Document(s) Lactate [Mass/volume] in Serum or Plasma 1.7 mmol/L 0.4-2.0 [facility]) Y/N query for Sepsis Lactate Rule: Y ID Date Data Source [id number] 08/07/2020 12:59:00 AM EST [facility] ([facility]) Name Value Range Interpretation Code Description Data Aura rce(s) Supporting Document(s) Laboratory test finding (navigational concept) Laboratory test result [facility] ([facility]) A false negative result may occur [...] pathogens. DISCLAIMER: Testing was performed using the [employer] SARS-CoV-2 test. This test was developed and its performance characteristics determined by [employer]. This test has not been FDA cleared [...] or revoked sooner. ID Date Data Source [id number] 08/07/2020 12:59:00 AM EST [facility] Name Value Range Interpretation Code Description Data Aura rce(s) Supporting Document(s) SARS coronavirus 2 RNA [Presence] in Res piratory specimen by ARLETTE with probe detection [facility] This lab was ordered by [facility] a nd reported by [facility]. ID Date Data Source [id number] 08/07/2020 12:57:00 AM EST [facility] ([facility]) Name Value Range Interpretation Code Description Data Aura rce(s) Supporting Document(s) Bedside Glucose 237 mg/dL 83-110 [facility] ([facility]) ID Date Data Source [id number] 08/06/2020 11:13:00 PM EST [facility] ([facility]) Name Value Range Interpretation Code Description Data Aura rce(s) Supporting Document(s) Bedside Glucose 219 mg/dL 83-110 [facility] ([facility]) ID Date Data Source [id number] 08/06/2020 08:05:00 PM EST [facility] ([facility]) Name Value Range Interpretation Code Description Data Aura rce(s) Supporting Document(s) Color, Urine RFX Laboratory test result [facility] ([facility]) Appearance, Urine RFX Laboratory test result [facility] ([facility]) PH,Urine RFX 5.0 units 5.0-9.0 [facility] ([facility]) Specific [place] Ur Auto RFX 1.023 1.002-1.035 [facility] ([facility]) Protein, Urine Auto RFX Laboratory test result [facility] ([facility]) Glucose, Urine (Ua) Auto RFX Laboratory test result [facility] ([facility]) Ketone, Urine Auto RFX Laboratory test result [facility] ([facility]) Urobilinogen, Urine Auto RFX 0.2 mg/dL 0.0-2.0 [facility] ([facility]) Bilirubin, Urine Auto RFX Laboratory test result [facility] ([facility]) Leukocyte Esterase Ur Auto RFX Laboratory test result [facility] ([facility]) Nitrite, Urine Auto RFX Laboratory test result [facility] ([facility]) Blood, Urine Blood RFX Laboratory test result [facility] ([facility]) RBC, Urine Auto RFX 6 /HPF 0-3 [facility] ([facility]) WBC, Urine Auto RFX 42 /HPF 0-3 [facility] ([facility]) Bacteria, Urine Auto RFX Laboratory test result [facility] ([facility]) Squam Epithelial Cell Ur Aurfx 2 /HPF 0-6 [facility] ([facility]) Hyaline Cast, Urine Auto RFX 0 /LPF 0-1 [facility] ([facility]) ID Date Data Source [id number] 08/06/2020 06:27:00 PM EST [facility] ([facility]) Name Value Range Interpretation Code Description Data Aura rce(s) Supporting Document(s) ABG pH (Arterial) 7.361 units 7.350-7.450 [facility] ( [facility]) ABG Partial Pressure Co2 38.2 mmHg 35.0-45.0 [facility] ([facility]) ABG Partial Pressure O2 89.0 mmHg 75.0-100.0 [facility] ([facility]) ABG Total Co2 22.3 meq/L 23.0-31.0 [facility] ([facility]) ABG Hco3 21.1 meq/L 22.0-26.0 [facility]) ABG Base Excess -3.9 [facility] ([facility]) ABG Standard Hco3 21.2 meq/L 22.0-26.0 [facility] ([facility]) ABG O2 Saturation 96.2 % 95.0-99.0 [facility] ([facility]) ID Date Data Source [id number] 08/06/2020 06:18:00 PM EST [facility] ([facility]) Name Value Range Interpretation Code Description Data Aura rce(s) Supporting Document(s) White Blood Count 11.2 10 4.0-10.0 [facility] ([facility]) Red Blood Count 3.97 10 4.00-5.40 [facility] ([facility]) Hematocrit 36.1 % 36.0-47.0 [facility] Hemoglobin 11.1 g/dL 12.0-15.5 [facility] Mean Corpuscular Volume 90.9 fl 80.0-96.0 [facility] ([facility]) Mean Corpuscular Hemoglobin 28.0 pg 27.0-33.0 [facility] ([facility]) Red Cell Distribution Width 14.9 % 11.5-14.5 [facility] ([facility]) Mean Corpuscular HGB Conc 30.7 g/dL 32.0-36.5 [facility] ([facility]) Platelet Count, Automated 234 10 150-450 [facility] ([facility]) Neutrophils % 68.6 % 36.0-66.0 [facility] ([facility]) [place] % 9.5 % 0.0-5.0 [facility] [facility] Lymph % 20.7 % 24.0-44.0 [facility] [facility] Eos % 0.3 % 0.0-3.0 [facility] [facility] Baso % 0.5 % 0.0-1.0 [facility] [place] [facility] Immature Granulocyte % 0.4 % 0-3.0 [facility] ([facility]) Nucleated Red Blood Cell % 0.0 % 0-0 [facility] ([facility]) Neutrophils # 7.7 10 1.5-8.5 [facility] ([facility]) Lymph # 2.3 10 1.5-5.0 [facility] [facility]) [place] # 1.1 10 0.0-0.8 [facility] [facility]) Eos # 0.0 10 0.0-0.5 [facility] [facility]) Baso # 0.1 10 0.0-0.2 [facility] ID Date Data Source [id number] 08/06/2020 06:18:00 PM EST [facility] ([facility]) Name Value Range Interpretation Code Description Data Aura rce(s) Supporting Document(s) CPK Creatine Phosphokinase 103 U/L 26-192 [facility] ([facility]) MB/CK Relative Index 5.15 [facility] ([facility]) <content>DIAGNOSIS CRITERIA</content>
<content>MMB ng/ml Relative Index (RI)</content>
<content>NON-AMI < or = 5 N/A</content>
<content>FOX ZONE > 5 < or = 4</content>
<content>AMI > 5 > 4</content>
<content></content> Troponin I 0.07 ng/mL [facility] ([facility]) <content>Troponin I Reference Interval f or Siemens Aledo LOCI:</content>
<content></content>
<content>99th Percentile= 0.00-0.045 ng/ml</content>
<content></content>
<content>Risk Stratification:</content>
<content><= 0.10 ng/ml Decreased Risk for Adverse Clinical</content>
<content>Events.</content>
<content>0.10-1.50 ng/ml Increased Risk for Adverse Clinical</content>
<content>Events. Evaluation of additional</content>
<content>criterion and/or repeat testing in 2-6</content>
<content>hours is suggested to rule out myocardial</content>
<content>damage.</content>
<content>>= 1.50 ng/ml Indicative of Myocardial Injury.</content>
<content></content> CK-MB Value Mass 5.3 ng/mL [facility] ([facility]) ID Date Data Source [id number] 08/06/2020 06:18:00 PM EST [facility] ([facility]) Name Value Range Interpretation Code Description Data Aura rce(s) Supporting Document(s) Ast/Sgot 18 U/L 7-37 [facility]) Alt/SGPT 24 U/L 12-78 [facility] [facility]) Alkaline Phosphatase 150 U/L 45-117 [facility] ([facility]) Bilirubin,Direct 0.1 mg/dL 0.0-0.2 [facility] ([facility]) Total Protein 8.5 GM/DL 6.4-8.2 [facility] ([facility]) Bilirubin,Total 0.5 mg/dL 0.2-1.0 [facility] ([facility]) Albumin 3.4 GM/DL 3.2-5.2 [facility] [facility]) Albumin/Globulin Ratio 0.7 1.2-2.2 [facility] ([facility]) ID Date Data Source [id number] 08/06/2020 06:18:00 PM EST [facility] ([facility]) Name Value Range Interpretation Code Description Data Aura rce(s) Supporting Document(s) Glucose, Fasting 465 mg/dL 70-100 Above upper panic limits [facility] ([facility]) Blood Urea Nitrogen 26 mg/dL 7-18 [facility] ([facility]) Creatinine For GFR 1.34 mg/dL 0.55-1.30 [facility] ([facility]) Glomerular Filtration Rate 40.3 [facility] ([facility]) <content>Units are mL/min/1.73 m2</content>
<content></content>
<content>Chronic Kidney Disease Staging per NKF:</content>
<content></content>
<content>Stage I & II GFR >=60 Normal to Mildly Decreased</content>
<content>Stage III GFR 30- 59 Moderately Decreased</content>
<content>Stage IV GFR 15-29 Severely Decreased</content>
<content>Stage V GFR <15 Very Little GFR Left</content>
<content>ESRD GFR <15 on LICENSED PROSTHETIST</content>
<content></content> Sodium Level 130 meq/L 136-145 [facility] ([facility]) Potassium Serum 5.0 meq/L 3.5-5.1 [facility] ([facility]) Carbon Dioxide Level 22 meq/L 21-32 [facility] ([facility]) Chloride Level 98 meq/L 98-107 [facility] ([facility]) Anion Gap 10 meq/L 8-16 [facility] [facility]) Calcium Level 9.0 mg/dL 8.8-10.2 [facility] ([facility]) ID Date Data Source [id number] 08/06/2020 06:18:00 PM EST [facility] ([facility]) Name Value Range Interpretation Code Description Data Aura rce(s) Supporting Document(s) Phosphate [Moles/volume] in Serum or Plasma 3.2 mg/dL 2.5-4.9 [facility] ([facility]) Magnesium [Moles/volume] in Serum or Plasma 2.0 mg/dL 1.8-2.4 [facility] ([facility]) ID Date Data Source [id number] 08/06/2020 06:18:00 PM EST [facility] ([facility]) Name Value Range Interpretation Code Description Data Aura rce(s) Supporting Document(s) Acetone/Ketone 33.08 mg/dL [facility] ([facility]) ID Date Data Source [id number] 08/06/2020 06:18:00 PM EST [facility] ([facility]) Name Value Range Interpretation Code Description Data Aura rce(s) Supporting Document(s) Lipoprotein lipase [Enzymatic activity/volume] in Serum or Plasm a 38 U/L 73-393 [facility] ([facility]) Osmolality of Serum or Plasma 311 MOSM/KG 280-301 [facility] ([facility]) ID Date Data Source [id number] 08/06/2020 06:18:00 PM EST [facility] ([facility]) Name Value Range Interpretation Code Description Data Aura rce(s) Supporting Document(s) Hemoglobin A1c 11.2 % [facility] ([facility]) <content>REFERENCE RANGES:</content><br/ ><content></content>
<content><=5.6% NORMAL</content>
<content>5.7-6.4% SUGGESTS IMPAIRED GLUCOSE METABOLISM/PREDIABETIC</content>
<content>>= 6.5% ABNORMAL</content>
<content></content> Estimated Average Glucose 275 mg/dL 60-110 [facility] ([facility]) ID Date Data Source [id number] 08/06/2020 06:18:00 PM EST [facility] ([facility]) Name Value Range Interpretation Code Description Data Aura rce(s) Supporting Document(s) Ammonia [Mass/volume] in Blood 44 uMOL/L [facility] ([facility]) ID Date Data Source [id number] 05/22/2020 09:38:00 AM EDT [facility] ([facility]) Name Value Range Interpretation Code Description Data Aura rce(s) Supporting Document(s) Microalbumin Urine 69.8 mg/L 1.3-20.0 [facility] ([facility]) Microalb/Creat Ratio 55.7 ug/mg 0.0-30.0 [facility] ( [facility]) Urine Creatinine 125.4 mg/dL 30.0-125.0 [facility] ([facility]) ID Date Data Source [id number] 05/22/2020 09:38:00 AM EDT [facility] ([facility]) Name Value Range Interpretation Code Description Data Aura rce(s) Supporting Document(s) Glucose [Mass/volume] in Serum or Plasma 131 mg/dL 74-99 [facility] ([facility]) 100-125 mg/dL PRE-DIABETES/FASTING >126 mg/dL DIABETES/FASTING Urea nitrogen [Mass/volume] in Serum or Plasma 25 mg/dL 7-18 [facility] ([facility]) Creatinine 1.0 mg/dL 0.6-1.3 [facility] Sodium [Moles/volume] in Serum or Plasma 141 meq/L 136-145 [facility] ([facility]) Potassium [Moles/volume] in Serum or Plasma 4.1 meq/L 3.5-5.1 [facility] ([facility]) Chloride [Moles/volume] in Serum or Plasma 105 meq/L 98-107 [facility] ([facility]) Carbon dioxide, total [Moles/volume] in Serum or Plasma 27 meq/L 21 -32 [facility] ([facility]) Calcium [Mass/volume] in Serum or Plasma 8.9 mg/dL 8.5-10.1 [facility] ([facility]) Glomerular filtration rate/1.73 sq M pre dicted among non-blacks [Volume Rate/Area] in Serum or Plasma by Creatinine-based formula (MDRD) 53 mL/min [facility] ([facility]) Glomerular filtration rate/1.73 sq M pre dicted among blacks [Volume Rate/Area] in Serum or Plasma by Creatinine-based formula (MDRD) Laboratory test result [facility] ([facility]) <content>CHRONIC KIDNEY DISEASE STAGING PER NKF</content>
<content></content>
<content>STAGE I & II GFR >= 60 NORMAL TO MILDLY DECREASED</content>
<content>STAGE III GFR 30-59 MODERATELY DECREASED</content>
<content>STAGE IV GFR 15-29 SEVERELY DECREASED</content>
<content>STAGE V GFR <15 VERY LITTLE GFR LEFT</content>
<content>ESRD GFR <15 ON LICENSED PROSTHETIST</content>
<content></content> ID Date Data Source [id number] 05/22/2020 09:38:00 AM EDT [facility]) Name Value Range Interpretation Code Description Data Aura rce(s) Supporting Document(s) Hemoglobin A1c/Hemoglobin.total in Blood 12.0 % [facility] ([facility]) NOTE: RESULT VERIFIED. Lab Result Notes: Pre-Diabetes 5.7 - 6.4 % Diabetes = or > 6.5% Glucose mean value [Mass/volume] in Blood Estimated fr om glycated hemoglobin 298 mg/dL 60-110 [facility] ([facility] ) ID Date Data Source [id number] 05/22/2020 09:38:00 AM EDT [facility]) Name Value Range Interpretation Code Description Data Aura rce(s) Supporting Document(s) Erythrocytes [#/volume] in Blood by Automated count 3.83 x10*6/UL 4.2 0-6.30 [facility] ([facility]) Hemoglobin [Mass/volume] in Blood 10.9 g/dL 12.0-18.0 [facility] ([facility]) Leukocytes [#/volume] in Blood by Automated count 11.6 x10*3/UL 4.1-1 0.9 [facility]) NOTE: RESULT VERIFIED. Hematocrit [Volume Fraction] of Blood by Automated count 32.6 % 3 7.0-51.0 [facility] ([facility]) MCV 85.2 fL 80.0-97.0 [facility] MCH 28.5 pg 26.0-32.0 [facility] Erythrocyte distribution width [Ratio] by Automated count 14.3 % 11.6-13.7 [facility] ([facility]) MCHC 33.4 g/dL 31.0-38.0 [facility] Platelets [#/volume] in Blood by Automated count 285 x10*3/UL 140-440 [facility] ([facility]) MPV 8.8 FL 7.8-11.0 [facility] Mid % 7.4 % 1.7-9.3 [facility] Lymph % 26.8 % 10.0-58.5 [facility] Neut % 65.8 % 37.0-92.0 [facility] Mid # 0.9 x10*3/UL 0.1-0.6 [facility] ([facility]) Lymph # 3.1 x10*3/UL 0.6-4.1 [facility] ([facility]) Neut # 7.6 x10*3/UL 2.0-7.8 [facility] ([facility]) Procedure Social History Code Duration Value Status Description Data Source(s ) Smoking 10/12/2020 10:52:59 AM EST Ex-smoker (finding) complet ed Ex-smoker (finding) STEPHANIE (Inderjit Interiano MD [facility]) Smoking 05/09/2020 01:41:55 PM EDT Ex-smoker (finding) complet ed Ex-smoker (finding) STEPHANIE (Inderjit Interiano MD [facility]) Vital Signs ID Date Data Source [id number] Name Value Range Interpretation Code Description Data Source(s) Body weight 147.00 [lb_av] 147.00 [lb_av] [facility] T ([facility]) Body mass index (BMI) [Ratio] 25.4 kg/m2 25.4 k g/m2 [facility] ([facility]) Systolic blood pressure 144 mm[Hg] 144 mm[Hg] [facility] Diastolic blood pressure 80 mm[Hg] 80 mm[Hg] [facility] ([facility]) Heart rate 68 /min 68 /min [facility] Body height 63.75 [in_i] 63.75 [in_i] [facility] ([facility]) 5'3.75" Systolic blood pressure 146 mm[Hg] 146 mm[Hg] [facility] Diastolic blood pressure 72 mm[Hg] 72 mm[Hg] [facility] Heart rate 65 /min 65 /min [facility] Body height 63.75 [in_i] 63.75 [in_i] [facility] ([facility]) 5'3.75" Body weight 147.00 [lb_av] 147.00 [lb_av] MED[facility] T ([facility]) Oxygen saturation in Arterial blood by Pulse oximetry 96 % 96 % [facility] Body mass index (BMI) [Ratio] 25.4 kg/m2 25.4 k g/m2 [facility] ([facility]) Systolic blood pressure 130 mm[Hg] 130 mm[Hg] [facility] Diastolic blood pressure 80 mm[Hg] 80 mm[Hg] [facility] Heart rate 68 /min 68 /min [facility] ([facility]) Body height 63.75 [in_i] 63.75 [in_i] [facility] ([facility]) 5'3.75" Body weight 150.00 [lb_av] 150.00 [lb_av] MEDEN T ([facility]) Body mass index (BMI) [Ratio] 25.9 kg/m2 25.9 k g/m2 [facility] ([facility]) Systolic blood pressure 132 mm[Hg] 132 mm[Hg] M [facility] Diastolic blood pressure 78 mm[Hg] 78 mm[Hg] [facility] Heart rate 70 /min 70 /min [facility] ([facility]) Oxygen saturation in Arterial blood by Pulse oximetry 95 % 95 % [facility] ([facility]) Body mass index (BMI) [Ratio] 27.0 kg/m2 27.0 k g/m2 [facility] Body height 63.75 [in_i] 63.75 [in_i] [facility] ([facility]) 5'3.75" Body weight 156.00 [lb_av] 156.00 [lb_av] [facility] T ([facility]) Systolic blood pressure 120 mm[Hg] 120 mm[Hg] [facility] Diastolic blood pressure 70 mm[Hg] 70 mm[Hg] [facility] Body height 63.75 [in_i] 63.75 [in_i] [facility] ([facility]) 5'3.75" Body weight 160.12 [lb_av] 160.12 [lb_av] [facility] T ([facility]) Body mass index (BMI) [Ratio] 27.7 kg/m2 27.7 k g/m2 [facility] Heart rate 71 /min 71 /min [facility]) Oxygen saturation in Arterial blood by Pulse oximetry 94 % 94 % [facility] ([facility]) Air Body mass index (BMI) [Ratio] 27.0 kg/m2 27.0 k g/m2 [facility] Body height 63.75 [in_i] 63.75 [in_i] [facility] 5'3.75" Body weight 156.00 [lb_av] 156.00 [lb_av] [facility] T ([facility]) Body mass index (BMI) [Ratio] 25.9 kg/m2 25.9 k g/m2 [facility] ([facility]) Systolic blood pressure 136 mm[Hg] 136 mm[Hg] [facility] Diastolic blood pressure 80 mm[Hg] 80 mm[Hg] [facility] ([facility]) Heart rate 78 /min 78 /min [facility] ([facility]) Body height 63.75 [in_i] 63.75 [in_i] [facility] ([facility]) 5'3.75" Body weight 150.00 [lb_av] 150.00 [lb_av] [facility] T ([facility]) Heart rate 82 /min 82 /min [facility] ([facility]) Systolic blood pressure 150 mm[Hg] 150 mm[Hg] M EDENT ([facility]) Diastolic blood pressure 62 mm[Hg] 62 mm[Hg] [facility] Body height 63.75 [in_i] 63.75 [in_i] [facility] ([facility]) 5'3.75" Body weight 155.00 [lb_av] 155.00 [lb_av] [facility] Body mass index (BMI) [Ratio] 26.8 kg/m2 26.8 k g/m2 [facility] ([facility]) ID Date Data Source [id number] 07/01/2021 02:21:47 PM EST [facility] Name Value Range Interpretation Code Description Data Source(s) WEIGHT RECORDED 136.80 pounds 136.80 pounds [facility] Height 60 Inches 060 Inches [facility]
[2021-07-05 18:23] VITALS: BP 132/59
--- NOTE | 2021-07-05 19:11 | REPVR ---
PROCEDURE INFORMATION: Exam: CT Cervical Spine Without Contrast Exam date and time: 07/05/2021 6:35 PM Age: 81 years old Clinical indication: Injury or trauma; Fall; Blunt trauma TECHNIQUE: Imaging protocol: Computed tomography images of the cervical spine without contrast. Radiation optimization: All CT scans at this facility use at least one of these dose optimization techniques: automated exposure control; mA and/or kV adjustment per patient size (includes targeted exams where dose is matched to clinical indication); or iterative reconstruction. COMPARISON: CT Head without contrast 06/09/2021 4:33 PM FINDINGS: Bones/joints: Grade 1 anterolisthesis of C3 on C4 and C4 on C5. Vertebral body heights are preserved. Moderate degenerative change about the dens. Mild to moderate prevertebral osteophytosis. There are bilateral facet joint degenerative changes. No acute cervical spine fracture. Discs/Spinal canal/Neural foramina: No definite significant central canal stenosis within limitations of technique. Multilevel cervical foraminal stenoses. Lungs: Emphysema. Pleural spaces: No visible pneumothorax. Vasculature: Vascular calcification. Soft tissues: Unremarkable. IMPRESSION: No acute cervical spine fracture. Electronically signed by: Rosas Robertson On 07/05/2021 19:11:00 PM
--- NOTE | 2021-07-05 19:12 | REPVR ---
PROCEDURE INFORMATION: Exam: CT Head Without Contrast Exam date and time: 07/05/2021 6:35 PM Age: 81 years old Clinical indication: Injury or trauma; Fall; Blunt trauma (contusions or hematomas); Consciousness not specified TECHNIQUE: Imaging protocol: Computed tomography of the head without contrast. Radiation optimization: All CT scans at this facility use at least one of these dose optimization techniques: automated exposure control; mA and/or kV adjustment per patient size (includes targeted exams where dose is matched to clinical indication); or iterative reconstruction. COMPARISON: CT Head without contrast 06/09/2021 4:33 PM FINDINGS: Brain: Decreased attenuation of the supratentorial white matter is likely secondary to chronic microvascular ischemia. No acute intracranial hemorrhage. Cerebral ventricles: Ventricular and subarachnoid spaces are age appropriate. Paranasal sinuses: Minimal paranasal sinus disease. Mastoid air cells: Visualized mastoid air cells are well aerated. Vasculature: Intracranial vascular calcification. Bones/joints: Unremarkable. No acute fracture. Soft tissues: Right posterolateral scalp soft tissue injury. IMPRESSION: No acute intracranial abnormality. Electronically signed by: Rosas Robertson On 07/05/2021 19:12:42 PM
--- OUTSIDE RECORDS SUMMARY | 2021-07-05 20:08 | CCD ---
Author Author [facility] Organization [facility] Address Unknown Phone Unavailable Care Team Providers Care Chart Snatcher Name Role Phone NO, PCP Unavailable Unavailable LePine, M Lorenza WAITER/WAITRESS BUFFET Unavailable Unavailable LePine, M Lorenza WAITER/WAITRESS BUFFET Unavailable Unavailable LePine, M Lorenza WAITER/WAITRESS BUFFET Unavailable Unavailable LePine, M Lorenza WAITER/WAITRESS BUFFET Unavailable Unavailable LePine, M Lorenza WAITER/WAITRESS BUFFET Unavailable Unavailable LePine, M Lorenza WAITER/WAITRESS BUFFET Unavailable Unavailable LePine, M Lorenza WAITER/WAITRESS BUFFET Unavailable Unavailable LePine, M Lorenza WAITER/WAITRESS BUFFET Unavailable Unavailable LePine, M Lorenza WAITER/WAITRESS BUFFET Unavailable Unavailable LePine, M Lorenza WAITER/WAITRESS BUFFET Unavailable Unavailable LePine, M Lorenza WAITER/WAITRESS BUFFET Unavailable Unavailable LePine, M Lorenza WAITER/WAITRESS BUFFET Unavailable Unavailable LePine, M Lorenza WAITER/WAITRESS BUFFET Unavailable Unavailable LePine, M Lorenza WAITER/WAITRESS BUFFET Unavailable Unavailable LePine, M Lorenza WAITER/WAITRESS BUFFET Unavailable Unavailable LePine, M Lorenza WAITER/WAITRESS BUFFET Unavailable Unavailable LePine, M Lorenza WAITER/WAITRESS BUFFET Unavailable Unavailable LePine, M Lorenza WAITER/WAITRESS BUFFET Unavailable Unavailable LePine, M Lorenza WAITER/WAITRESS BUFFET Unavailable Unavailable LePine, M Lorenza WAITER/WAITRESS BUFFET Unavailable Unavailable LePine, M Lorenza WAITER/WAITRESS BUFFET Unavailable Unavailable LePine, M Lorenza WAITER/WAITRESS BUFFET Unavailable Unavailable LePine, M Lorenza WAITER/WAITRESS BUFFET Unavailable Unavailable LePine, M Lorenza WAITER/WAITRESS BUFFET Unavailable Unavailable LePine, M Lorenza WAITER/WAITRESS BUFFET Unavailable Unavailable LePine, M Lorenza WAITER/WAITRESS BUFFET Unavailable Unavailable LePine, M Lorenza WAITER/WAITRESS BUFFET Unavailable Unavailable LePine, M Lorenza WAITER/WAITRESS BUFFET Unavailable Unavailable LePine, M Lorenza WAITER/WAITRESS BUFFET Unavailable Unavailable LePine, M Lorenza WAITER/WAITRESS BUFFET Unavailable Unavailable LePine, M Lorenza WAITER/WAITRESS BUFFET Unavailable Unavailable LePine, M Lorenza WAITER/WAITRESS BUFFET Unavailable Unavailable LePine, M Lorenza WAITER/WAITRESS BUFFET Unavailable Unavailable LePine, M Lorenza WAITER/WAITRESS BUFFET Unavailable Unavailable LePine, M Lorenza WAITER/WAITRESS BUFFET Unavailable Unavailable LePine, M Lorenza WAITER/WAITRESS BUFFET Unavailable Unavailable LePine, M Lorenza WAITER/WAITRESS BUFFET Unavailable Unavailable LePine, M Lorenza WAITER/WAITRESS BUFFET Unavailable Unavailable LePine, M Lorenza WAITER/WAITRESS BUFFET Unavailable Unavailable LePine, M Lorenza WAITER/WAITRESS BUFFET Unavailable Unavailable LePine, M Lorenza WAITER/WAITRESS BUFFET Unavailable Unavailable LePine, M Lorenza WAITER/WAITRESS BUFFET Unavailable Unavailable LePine, M Lorenza WAITER/WAITRESS BUFFET Unavailable Unavailable LePine, M Lorenza WAITER/WAITRESS BUFFET Unavailable Unavailable LePine, M Lorenza WAITER/WAITRESS BUFFET Unavailable Unavailable LePine, M Lorenza WAITER/WAITRESS BUFFET Unavailable Unavailable LePine, M Lorenza WAITER/WAITRESS BUFFET Unavailable Unavailable LePine, M Lorenza WAITER/WAITRESS BUFFET Unavailable Unavailable LePine, M Lorenza WAITER/WAITRESS BUFFET Unavailable Unavailable LePine, M Lorenza WAITER/WAITRESS BUFFET Unavailable Unavailable LePine, M Lorenza WAITER/WAITRESS BUFFET Unavailable Unavailable LePine, M Lorenza WAITER/WAITRESS BUFFET Unavailable Unavailable LePine, M Lorenza WAITER/WAITRESS BUFFET Unavailable Unavailable LePine, M Lorenza WAITER/WAITRESS BUFFET Unavailable Unavailable LePine, M Lorenza WAITER/WAITRESS BUFFET Unavailable Unavailable LePine, M Lorenza WAITER/WAITRESS BUFFET Unavailable Unavailable PICKERAL JR, J JOON PA-C [...] MD Unavailable Unavailable SanjuLuke MD Unavailable Unavailable SpringfieldLuke MD Unavailable Unavailable SanjuLuke MD Unavailable Unavailable SpringfieldLuke MD Unavailable Unavailable SpringfieldLuke MD Unavailable Unavailable SanjuLuke MD Unavailable Unavailable SpringfieldLuke MD Unavailable Unavailable SpringfieldLuke MD Unavailable Unavailable SpringfieldLuke MD Unavailable Unavailable SpringfieldLuke MD Unavailable Unavailable SpringfieldLuke MD Unavailable Unavailable SpringfieldLuke MD Unavailable Unavailable SpringfieldLuke MD Unavailable Unavailable SpringfieldLuke MD Unavailable Unavailable SpringfieldLuke MD Unavailable Unavailable SanjuLuke MD Unavailable Unavailable SanjuLuke MD Unavailable Unavailable SpringfieldLuke MD Unavailable Unavailable SpringfieldLuke MD Unavailable Unavailable SpringfieldLuke MD Unavailable Unavailable SpringfieldLuke MD Unavailable Unavailable SanjuLuke MD Unavailable Unavailable SpringfieldLuke MD Unavailable Unavailable SanjuLuke MD Unavailable Unavailable SanjuLuke MD Unavailable Unavailable SanjuLuke MD Unavailable Unavailable SanjuLuke MD Unavailable Unavailable SanjuLuke MD Unavailable Unavailable SanjuLuke MD Unavailable Unavailable SpringfieldLuke MD Unavailable Unavailable SpringfieldLuke MD Unavailable Unavailable SpringfieldLuke MD Unavailable Unavailable SanjuLuke MD Unavailable Unavailable SpringfieldLuke MD Unavailable Unavailable SanjuLuke MD Unavailable Unavailable SpringfieldLuke perdomo MD Unavailable Unavailable SpringfieldLuke MD Unavailable Unavailable SpringfieldLuke MD Unavailable Unavailable SanjuLuke MD Unavailable Unavailable SpringfieldLuke MD Unavailable Unavailable SanjuLuke MD Unavailable Unavailable SpringfieldLuke MD Unavailable Unavailable SanjuLuke MD Unavailable Unavailable SanjuLuke MD Unavailable Unavailable SpringfieldLuke MD Unavailable Unavailable SanjuLuke MD Unavailable Unavailable SanjuLuke MD Unavailable Unavailable SpringfieldLuke MD Unavailable Unavailable SanjuLuke MD Unavailable Unavailable SanjuLuke MD Unavailable Unavailable SanjuLuke MD Unavailable Unavailable SpringfieldLuke MD Unavailable Unavailable SpringfieldLuke MD Unavailable Unavailable SanjuLuke MD Unavailable Unavailable SpringfieldLuke MD Unavailable Unavailable SanjuLuke MD Unavailable Unavailable Luke Bills MD Unavailable Unavailable Luke Bills MD Unavailable Unavailable Luke Bills MD Unavailable Unavailable Luke Bills MD Unavailable Unavailable SanjuLuke perdomo MD Unavailable Unavailable SpringfieldLuke perdomo MD Unavailable Unavailable SanjuLuke perdomo MD Unavailable Unavailable SpringfieldLuke perdomo MD Unavailable Unavailable SanjuLuke perdomo MD Unavailable Unavailable SanjuLuke perdomo MD Unavailable Unavailable SanjuLuke perdomo MD Unavailable Unavailable SanjuLuke perdomo MD Unavailable Unavailable SanjuLuke perdomo MD Unavailable Unavailable SpringfieldLuke perdomo MD Unavailable Unavailable Luke Bills MD Unavailable Unavailable SanjuLuke perdomo MD Unavailable Unavailable Luke Bills MD Unavailable Unavailable SanjuLuke perdomo MD Unavailable Unavailable SpringfieldLuke perdomo MD Unavailable Unavailable SanjuLuke perdomo MD Unavailable Unavailable SanjuLuke perdomo MD Unavailable Unavailable SpringfieldLuke perdomo MD Unavailable Unavailable SpringfieldLuke perdomo MD Unavailable Unavailable Luke Bills MD [...] is protected by Article 27-F of the [place] State Public Health law. If you continue you may have access to information: Regarding HIV / AIDS; Provided by facilities licensed or operated by the [facility] Office of Mental Health; or Provided by the [facility] Office for People With Developmental Disabilities. If such information is present, then the following [facility] mandated warning applies: This information [...] law may result in a fine or group home sentence or both. A general authorization for the release of medical or other information is NOT sufficient authorization for further disc losure. Allergies and Adverse Reactions Type Description Substance Reaction Status Data Source(s ) Drug allergy CODEINE CODEINE [facility] Propensity to adverse reactions ASA (aspirin) ASA (aspirin) [facility] Family History Family Member Name Family Member Gender Family Member Status Date o f Status Description Data Source(s) Unknown Unknown Problem [facility] ([facility]) Four brothers all alive. One has diabete s and RA. She had 3 sisters. Two have from complications of diabetes Encounters Encounter Providers Location Date Indications Data Source(s ) Outpatient Attender: Karthikeyan Alvares PAAt tender: VELIA TELLES MDConsultant: JOSE ROMEOConsultant: PCP NO 06/30/2021 01:40:00 AM EST - 07/01/2021 02:15:00 PM [facility] Patient discharged. Emergency Attender: REN SOLOConsultant: ALCIDES ROMEOConsultant: PCP NO 06/27/2021 06:06:00 AM EDT - 06/27/2021 01:00:00 PM T [facility] Patient discharged. Outpatient Attender: Andrew Malik 0 05/03/2021 02:45:00 PM EDT [facility] ([facility] ) Emergency Attender: VELIA TELLES MDConsultant: PCP NO 03/05/2021 03:55:00 PM EDT - 03/05/2021 06:11:00 PM T [facility] Patient discharged. Outpatient Attender: JOON Malik 0 02/20/2021 01:40:00 PM EDT [facility] ([facility] ) Outpatient Attender: Andrew Malik 0 12/31/2020 11:40:00 AM EDT [facility] ([facility] ) Outpatient Attender: Andrew Malik 0 09/24/2020 09:40:00 AM EST [facility] ([facility] ) Outpatient Attender: Lorenza Htatie YANDY Malik 09/11 10:00:00 AM EST [facility] ([facility] ) Outpatient Attender: Andrew Malik 0 08/30/2020 08:20:00 AM EST [facility] ([facility] ) Outpatient Attender: Andrew Malik 0 05/22/2020 10:00:00 AM EDT [facility] ([facility] ) Outpatient<td ID="encounterTypeDescripti onID0">1 Year Follow-Up</td><td>Afshin Sosa DO</td><td>Inderjit Valnetine MD [facility]</td><td>05/09/2020</td><td>12:17PM</td><td>1:37PM</td><td><content ID="encounterDiagnosisID0-0">Dry Eye Syndrome</content>, <content ID="encounterDiagnosisID0-1">Pseudophakia</content>, <content ID="encounterDiagnosisID0-2">Assessment of Taking Medication For Diabetes Long- term Use of Insulin</content>, <content ID="encounterDiagnosisID0-3">Vitreous Disorders Degeneration</content>, <content ID="encounterDiagnosisID0-4">Diabetes Mellitus Type 2 Without Complication</content></td> Attender: AFSHIN Haley MD [facility] 05/09/2020 12:17:00 PM EDT - 05/09/2020 01:37:00 PM EDT Diabetes Mellitus Type 2 Without Complic ationVitreous Disorders DegenerationAssessment of Taking Medication For Diabetes Long-term Use of InsulinPseudophakiaDry Eye SyndromeDiabetes Mellitus Type 2 Without Complication Vitreous Disorders DegenerationAssessment of Taking Medication For Diabetes Long-term Use of InsulinPseudophakiaDry Eye Syndrome STEPHANIE (Inderjit Interiano MD [facility]) Diabetes Mellitus Type 2 Without Complic [...] Complete: YESThis Data wa s Submitted to [facility] [employer]. COVID-19 VACCINE Moderna 10/26/2020 12:00:00 AM EST completed NYSIIS Vaccine Series Complete: NOThis Data was Submitted to [facility] [employer]. Influenza, injectable, MDCK, preservative free, radha valent 05/22/2020 10:58:00 AM EDT completed [facility]) Medications Medication Brand Name Start [...] 2 TABS` WITH SUPPER DAILY SOLD: 05/01/2021 [facility] 24 HR Metformin hydrochloride 500 MG Extended Release Oral Tablet Metformin HCL ER 02/20/2021 12:00:00 AM EDT ORAL completed [facility] ([facility]) 45 mcg/actuation 01/26/2021 12:00:00 AM EDT [...] Of Flu Vaccine 05/22/2020 12:00:00 AM EDT [facility] ([facility]) Medication administered onsite 5-325 mg [...] Barboza Plan Information [employer] Commercial [id number] Self [id number] [employer] Commercial [id number] Self [id number] [employer] Medicare Commercial [id number] Self [id number] [employer] Medicare Commercial [id number] Self [id number] [employer] Medicare Commercial Advantage Plus [id number] Self Advantage Plus [id number] WELLCARE [id number] SP [id number] TODAYS OPTIONS [id number] SP [id number] WELLCARE [id number] SP [id number] Wellcare/Todays Optr Commercial [id number] Self [id number] WELLCARE MEDICARE [id number] [place] 06 [id number] TOD[employer]YS OPTIONS/BRAZILIAN O [id number] S [id number] WELLCARE -O/P [id number] 18 [id number] WELLCARE O [id number] S [id number] MEDICARE [id number] SP [id number] Problems, Conditions, and Diagnoses Code Display Name Description Problem Type Effective Dates Data Source(s) Z794 senior living (current) use of insulin senior living (cu rrent) use of insulin Diagnosis 06/27/2021 06:06:00 AM EDT [facility] I10 Essential (primary) hypertension Essential (primary) h ypertension Diagnosis 06/27/2021 06:06:00 AM EDT [facility] F97007 Type 2 diabetes mellitus with hypoglycem ia without coma Type 2 diabetes mellitus with hypoglycemia without coma Diagnosis 06/27/2021 06:06:00 AM EDT [facility] R4182 Altered mental status, unspecified Altered menta l status, unspecified Diagnosis 06/27/2021 06:06:00 AM EDT [facility] E119 Type 2 diabetes mellitus without complic ations Type 2 diabetes mellitus without complications Diagnosis 03/05/2021 03:55:00 PM EDT [facility] R531 Weakness Weakness Diagnosis 03/05/2021 03:55:00 PM ED T [facility] Surgeries/Procedures Procedure Description Date Indications Data Source(s) OFFICE OUTPATIENT VISIT 25 MINUTES 05/03/2021 12:00:00 AM EDT [facility] ([facility]) Trans Care SRV W/I 14D Of DC, Comm W/I 2 Dys Med Rec 02/20/2021 12:00:00 AM EDT [facility] ([facility] ) Chronic Care MGMT 20 Mins Clinical Staff Time Per Calendar [facility] 01/08/2021 12:00:00 AM EDT [facility] ([facility] ) OFFICE OUTPATIENT VISIT 25 MINUTES 12/31/2020 12:00:00 AM EDT [facility] ([facility]) Chronic Care MGMT 20 Mins Clinical Staff Time Per Calendar [facility] 12/04/2020 12:00:00 AM EDT [facility] ([facility] ) Chronic Care MGMT 20 Mins Clinical Staff Time Per Calendar [facility] 11/09/2020 12:00:00 AM EDT [facility] ([facility] ) Chronic Care Management Services Ea Addl 20 Min 2020 12:00:00 AM EST [facility] ([facility]) Chronic Care MGMT 20 Mins Clinical Staff Time Per Calendar [facility] 10/01/2020 12:00:00 AM EST [facility] ([facility] ) OFFICE OUTPATIENT VISIT 25 MINUTES 09/24/2020 12:00:00 AM EST [facility] ([facility]) Impacted Cerumen Irrigat/Lavage 09/11/2020 12:00:00 AM EST [facility] ([facility]) OFFICE OUTPATIENT VISIT 15 MINUTES 09/11/2020 12:00:00 AM EST [facility] ([facility]) Trans Care SRV W/I 14D Of DC, Comm W/I 2 Dys Med Rec 08/30/2020 12:00:00 AM EST [facility] ([facility] ) Diabetic Retinal Eye Exam 05/09/2020 12:00:00 AM EDT [facility] ([facility]) Intermediate Eye Exam Established Patient Intermediate Eye Exam Established Patient 05/09/2020 12:00:00 AM EDT STEPHANIE (Miguel id A Nora Interiano MD [facility]) Intermediate Eye Exam Established Patient Intermediate Eye Exam Established Patient 05/09/2020 12:00:00 AM EDT STEPHANIE (Miguel id A Nora Interiano MD [facility]) Results ID Date Data Source [id number] 07/01/2021 11:04:00 AM [facility] NOT DETECTEDNOT DETECTED{ PROC EDURAL CONTROL [...] rce(s) Supporting Document(s) ID Date Data Source [id number] 06/27/[facility] Emergency Department [address] [place] [address] Phone #: ext- [phone] 06/27/2021 06:06 Patient: JAJA WEBB [facility]#: [id number] Sex: F : 1940 Age: 81yWEIGHT:65.3 kg [...] Efrain(Oxygen?(No)) Ren Solo RN, RN 2 OrderSheet [facility] Emergency Department [address] [place] [address] Phone #: ext- [phone] 06/27/2021 06:06 Patient: JAJA WEBB Sex: F : 1940 Age: 81y M.D.; Reason for Study: Altered Mental StatusMEDICATION/IV/DRIP/FLUID ORDERSOrder Description Priority Entered Acknowledged [id number] IV : Bolus 06:31 06/27/2021 06:45 Xppmfi166 mL, then 125 Ren Solo RNmL/hr MLe;NS IV 500 mL 10:22 06/27/2021 Ack'd: 10:22 10:27 Chau,Bolus: : Bolus 500 Chanliecco, Shanice Chau, Yvonne Yvonne R.N.mL (X1) ; R.N.GENERAL ORDERSOrder Description Priority Entered Acknowledged InitialedBlood Pressure 06:31 06/27/2021 06:37 Ren Arredondo RN, M.D.;Nuclear Medicine Officer 06:31 06/27/2021 06:37 Efrain(continuous) Ren Solo RN, M.D.;EKG 06:31 06/27/2021 07:10 Ren Miller RN, M.D.;NPO 06:31 06/27/2021 06:37 Ren Miller RN, M.D.;Obtain Old EKG 06:31 06/27/2021 06:37 Ren Miller RN, M.D.;Obtain Old Records 06:31 06/27/2021 06:37 Ren Miller RN, M.D.;Oxygen (2 L/min) 06:31 06/27/2021 06:37 Efrain(NC) (Titrate to O2 Ren Solo RNSat >92%) Jaxon;Oxygen titrate to 06:31 06/27/2021 06:37 Celnlg93% Ren Solo RN, M.D.;Pulse oximeter 06:31 06/27/2021 06:37 Efrain(Continuous) Ren Solo RN, M.D.;Saline Lock 06:31 06/27/2021 06:37 Efrain 3 OrderSheet [facility] Emergency Department [address] [place] [address] Phone #: [phone]- [phone] 06/27/2021 06:06 Patient: JAJA WEBB Sex: F [...] rce(s) Supporting Document(s) ID Date Data Source [id number] 06/27/2021 06:06:00 AM EDT [facility] 1 Medication Reconciliation Report [facility] Emergency Department [address] [place] [address] Phone #: ext- [phone] 06/27/2021 06:06 Patient: [...] rce(s) Supporting Document(s) ID Date Data Source [id number] 06/27/2021 06:06:00 AM EDT [facility] 1 Medication Administration Record [facility] Emergency Department [address] [place] [address] Phone #: ext- [phone] 06/27/2021 06:06 Patient: JAJA WEBB Sex: F : 1940 Age: 81yWeight: 65.3 kgHeight/Length: 60 inBMI: 28.1ALLERGIES: Aspirin, Codeine Phosphate Date/Time Medication Administered Medication OrderedStart D5NS IV D5NS IV : Bolus 500 mL, then 95196:45 06/27/2021 Dose: IV Fluids mL/hrSteven ENOCH Jamse Rate: 1000 mL/hr---- Bolus: 500 mLStop Dispensed: 1000 mL bag08:10 06/27/2021 Site: #1 right forearmLinda Doran R.N.Start NS [IV] NS IV 500 mL Bolus: : Bolus 12041:27 06/27/2021 Dose: IV Fluids mL (X1)Yvonne Chau RGraeme Bolus: 500 mL wide open---- Dispensed: 1000 mL bagStop Site: #1 right xxjpvyb03:23 06/27/2021Yvonne Chau R.N. Name Value Range Interpretation Code Description Data Aura rce(s) Supporting Document(s) ID Date Data Source [id number] 06/27/2021 06:06:00 AM EDT [facility] 1 General Instructions [facility] Emergency Department [address] [place] [address] Phone #: [phone] ext- [phone] 06/27/2021 06:06 Patient: JAJA WEBB Sex: F [...] with your healthcare provider. 2 General Instructions [facility] Emergency Department [address] [place] [address] Phone #: [phone] snb- [phone] 06/27/2021 06:06 Patient: TRACEY JAJA Sex: F : 1940 Age: 81y(Electronically signed by Shanice Roldan 06/27/2021 15:43) Name Value Range Interpretation Code Description Data Aura rce(s) Supporting Document(s) ID Date Data Source [id number] 06/27/2021 06:06:00 AM EDT [facility] 1 Clinical Report - Nurses [facility] Emergency Department [address] [place] [address] Phone #: ext- [phone] 06/27/2021 06:06 Patient: JAJA WEBB Sex: F : 1940 Age: 81yTRIAGEArrived by EMS. Historian: EMS.Triage time: 06:08 06/27/2021.Chief Complaint: ("Breathing Funny").( [facility], Pt was getting Glucagon when EMS arrived. Initial FSBS 53, Recheck was81. No report rec'd from [facility].).EMS Treatment AUTOMOTIVE TITLE CLERK:See EMS report. --06:06/27/21 Juju James R.N.Acuity: LEVEL [...] Doran R.N. 2 Clinical Report - Nurses [facility] Emergency Department [address] [place] [address] Phone #: ext- [phone] 06/27/2021 06:06 Patient: [...] radiology and CT by stretcher with radiology rn. Call light placed in reach. Bed placed in lowest position. Brakes of bed on. --06:54 06/27/21 Juju James R.N. ( Call placed X2 to obtain report from [facility]. Spoke with Nurse Mckeon who stated that pt is new there and she "Doesn't know anything about her" Was Talking and alert around midnight when she she saw prior. EMS called and they state that they do not have any pages of the transfer information. Requested [facility] to Fax or deliver pt's PMH and Med list, etc to the ED.). --06:56 06/27/21 Juju James R.N. Finger stick glucose: 309; performed by nurse; result shown to the ED physician. --08:08 06/27/21 Linda Doran R.N. 08:10 06/27/2021 IV Fluids D5NS IV via IV site #1 Discontinued: discontinued. Total amount infused: 600 3 Clinical Report - Nurses [facility] Emergency Department [address] [place] [address] Phone #: ext- [phone] 06/27/2021 06:06 Patient: [...] 17. O2 saturation: 100%. --09:39 06/27/21 Josiah glass finisherSydneeyPATRICIA Tech1 10:27 06/27/2021 Started bag #1 1000 [...] nurse via a phone call. (Desirae KENDALL [facility]). --13:12 06/27/21 Yvonne Chau R.N. 4 Clinical Report - Nurses [facility] Emergency Department [address] [place] [address] Phone #: ext- [phone] 06/27/2021 06:06 Patient: [...] rce(s) Supporting Document(s) ID Date Data Source [id number] 06/27/2021 06:06:00 AM EDT [facility] 1 Clinical Report - Physicians/Mid Levels [facility] Emergency Department [address] [place] [address] Phone #: ext- [phone] 06/27/2021 06:06 Patient: [...] patient is described as having decreased responsiveness. [facility]. Prior to arrival, the dextro stick was measured by nurses and found to be low (43). Medication was given prior to arrival by nurses (glucagon). The patient has had weakness. Usually is alert and oriented X3. (pt lives at [place], we have poor Hx from [place], pt had AMS, BS was 43 prior [...] use or drug use. Resides in a long term.ADDITIONAL NOTESThe nursing notes have been reviewed with agreement regarding the chief complaint, HPI, ROS, PMH andpatient medications and allergies.PHYSICAL EXAMVital Signs: 06/27/2021 06:09 BP: 97/50. MAP: 65. HR: 65. RR: 20. O2 saturation: 95%. Temp: 98 F. 2 Clinical Report - Physicians/Mid Levels [facility] Emergency Department [address] [place] [address] Phone #: ext- [phone] 06/27/2021 06:06 Patient: JAJA WEBB [facility]#: [id number] Sex: F : 1940 Age: 81y Have [...] xray results. Expected disposition: admit.(Electronically signed by Ren Solo M.D. 07/01/2021 07:17) Time Seen: 06:17 06/27/2021; initial patient contact. Arrived- By ambulance. Historian- EMS personnel. History limited by vague historian. Disposition decision: 11:31 06/27/2021.HISTORY OF PRESENT ILLNESS Chief Complaint: DECREASED MENTAL STATUS, LOW BLOOD SUGAR and DIABETIC. The patient is 3 Clinical Report - Physicians/Mid Levels [facility] Emergency Department [address] [place] [address] Phone #: ext- [phone] 06/27/2021 06:06 Patient: TRACEY JANUARY Sex: F : 1940 Age: 81y described as having decreased responsiveness. This started just prior to arrival and is still present but is better now. It was gradual in onset and has been constant. [facility]. Prior to arrival, the dextro stick was measured by nurses and found to be low (43). Medication was given prior to arrival by nurses (glucagon). The patient has had weakness. Usually is alert and oriented X3. (pt lives at [place], we have poor Hx from [place], pt had AMS, BS was 43 prior [...] use or drug use. Resides in a long term.ADDITIONAL NOTESThe nursing notes have been reviewed with [...] Painless 4 Clinical Report - Physicians/Mid Levels [facility] Emergency Department [address] [place] [address] Phone #: [phone] ext- [phone] 06/27/2021 06:06 Patient: JAJA WEBB Sex: F [...] Room: ED Exam [place] [address] PHONE: [phone] FAX: [phone] Clinical Report - Physicians/Mid Levels [facility] Emergency Department [address] [place] [address] Phone #: ext- [phone] 06/27/2021 06:06 Patient: JAJA WEBB Sex: F : 1940 Age: 81y Na me .................. : TRACEY WILKINSON Acct Number.................. : [id number] ROOM. ................. : TR-03 MR Number ................... : [id number] Stay type ............. : E/R Discharge Date......... ... : Admit Date ......... : 06/27/21 Admit Phys .................... : GERMANIA HDZ Date of ....... : 1940 Family Phys ................... : NO PCP Phone .................. : [phone] Age ................................ : 81 Film# ............ ...... .:[id number] Sex ................................. : F Unsigned transcriptions are preliminary reports and do not represent a medical or legal document CT HEAD W/O CONTRAST 32772 COMPLETE:06/27/21 07:09 AML [id number] Reason(s): Altered Mental Status CT BRAIN WITHOUT [...] was provided by Emily.Page 1 of 2 [facility] [address] [place] [address] PHONE: [phone] FAX: [phone] Name .................. : TRACEY WILKINSON Acct Number.................. : [id number] ROOM. ................. : TR-03 MR Number ................... : [id number] Stay type ............. : E/R Discharge Date......... ... : Admit Date ......... : 06/27/21 Admit Phys .................... : GERMANIA HDZ Date of ....... : 1940 Family Phys ................... : NO PCP Phone .................. : [phone] Age ................................ : 81 Film# .................. .:[id number] Sex ................................. : F 6 Clinical Report - Physicians/Mid Levels [facility] Emergency Department [address] [place] [address] Phone #: ext- [phone] 06/27/2021 06:06 Patient: JAJA WEBB Sex: F : 1940 Age: 81y Unsigned transcriptions are preliminary reports and do not represent a medical or legal document CT HEAD W/O CONTRAST 43410 COMPLETE:06/27/21 07:09 AML [id number] Reason(s): Altered Mental Status Electronically Reviewed and [...] 107) 7 Clinical Report - Physicians/Mid Levels [facility] Emergency Department [address] [place] [address] Phone #: ext- [phone] 06/27/2021 06:06 Patient: [...] Male GFR Interprentation 20-49 yrs >60 mL/min Wfuzor96-00 yrs >56 mL/min Normal 60-69 yrs >49 mL/min Normal 70-79yrs>42 mL/min Normal 80 and above >35 mL/min Normal Female GFRInterpretation 20-39 yrs >60 mL/min Normal 40-49 yrs >58 mL/minNormal 50-59 yrs >51 mL/min Normal 60-69 yrs >45 mL/min Tjadkz20-46 yrs >39 mL/min Normal 80 and above >32 mL/min NormalLipase: (JUNO: 06/27/2021 06:25) ( LagRcvd 06/27/2021 07:21) Final results Test Result Flag [...] Portable 1 View: (JUNO: 06/27/2021 06:31) ( LagRcvd 06/27/2021 08:33) In ProgressCHEST PORTABLEReason(s): Shortness of BreathTRANSPORTATION: P IV? O2? Oxygen?(No) Room: [place] [address] PHONE: [phone] FAX: [phone] Name .................. : TRACEY WILKINSON Acct Number.................. : [id number] Clinical Report - Physicians/Mid Levels [facility] Emergency Department [address] [place] [address] Phone #: ext- [phone] 06/27/2021 06:06 Patient: JAJA WEBB Sex: F : 1940 Age: 81y ROOM. ................. : TR-03 MR Number ................... : [id number] Stay type ............. : E/R Discharge Date......... ... : Admit Date ......... : 06/27/21 Admit Phys .................... : GERMANIA HDZ Date of ....... : 1940 Family Phys ................... : NO PCP Phone .................. : [phone] Age ................................ : 81 Film# .................. .:[id number] Sex ................................. : F Unsigned transcriptions are preliminary reports and do not represent a medical or legal document CHEST PORTABLE [id number] COMPLETE:06/27/21 07:09 AML [id number] Reason(s): Shortness of Breath PORTABLE CHEST SINGLE [...] an 81 y/o female diabetic transferred for [facility] for unresponsiveness. she was noted to have [...] drip 9 Clinical Report - Physicians/Mid Levels [facility] Emergency Department [address] [place] [address] Phone #: ext- [phone] 06/27/2021 06:06 [id number] Sex: [facility] : 1940 Age: 81y 09:10 06/27/21. CXR i did not show any pneumonia. she has an elevated WBC. her potassium is slightly elevated at 5.4 10:07 06/27/21. Patient is on an quirion inhibitor for her HTN and her repeat FSG is 269 after we stopped the d5 infusion 11:13 06/27/21. Patient is non ambulatory as per her chel care provider. she is at [facility] Rehab 11:31 06/27/21. Patients CR as [...] plan of care. 11:31. Disposition: Discharged to long term in good and improved condition (11:32). Condition: [...] units. 10 Clinical Report - Physicians/Mid Levels [facility] Emergency Department [address] [place] [address] Phone #: ext- [phone] 06/27/2021 06:06 Patient: JAJA WEBB Sex: F : 1940 Age: 81y Follow-up: Follow up with your healthcare provider.(Electronically signed by Shanice Roldan 06/27/2021 15:43) Name Value Range Interpretation Code Description Data Aura rce(s) Supporting Document(s) ID Date Data Source [id number] 07/01/2021 07:45:00 AM EST [facility] Name Value Range Interpretation Code Description Data Aura rce(s) Supporting Document(s) COMPREHENSIVE METABOLIC PANEL [facility] COMPREHENSIVE METABOLIC PANEL Sodium [Moles/volume] in Serum or Plasma 137 mEq/L 134 - 153 [facility] Potassium [Moles/volume] in Serum or Plasma 4.8 mEq/L 3.6 - 5.0 [facility] Chloride [Moles/volume] in Serum or Plasma 103 mEq/L 98 - 107 [facility] Carbon dioxide, total [Moles/volume] in Serum or Plasma 25 MEQ/L 22 - 30 [facility] Glucose [Mass/volume] in Serum or Plasma 173 MG/DL 70 - 99 H [facility] BUN 13 MG/DL 7 - 21 [facility] Creat[facility] [Mass/volume] in Serum or Plasma 0.7 MG/DL 0.7 - 1.5 [facility] BUN/CREAT 19 8 - 27 [facility] al Protein [Mass/volume] in Serum or Plasma 6.7 G/DL 6.3 - 8.2 [facility] Albumin [Mass/volume] in Serum or Plasma 3.2 G/DL 3.9 - 5.0 L [facility] Globulin [Mass/volume] in Serum by calculation 3.5 GM/DL 2.4 - 3.2 H [facility] A/G RATIO 0.9 0.8 - 2.0 [facility] Calcium [Mass/volume] in Serum or Plasma 9.1 MG/DL 8.4 - 10.2 [facility] Bilirubin.total [Mass/volume] in Serum or Plasma <0.7 MG/DL 0.2 - 1.3 [facility] Alkaline phosphatase [Enzymatic activity/volume] in Serum or Plasma 125 U/L 38 - 126 [facility] Aspartate aminotransferase [Enzymatic activity/volume] in Serum or Plasma 20 U/L 5 - 40 [facility] Alanine aminotransferase [Enzymatic activity/volume] in Seru m or Plasma 20 U/L 7 - 56 [facility] Anion gap 3 in Serum or Plasma 9.0 mmol/L 8.0 - 16.0 [facility] AGE 81 [facility] GFR >60 mL/min [facility] ital AFR AMER GFR >60 [facility] Hos pital Male GFR In terprentation [...] >32 mL/min Normal ID Date Data Source [id number] 07/01/2021 07:07:00 AM EST [facility] Name Value Range Interpretation Code Description Data Aura rce(s) Supporting Document(s) CBC W/AUTOMATED DIFF [facility] COMPLETE BLOOD COUNT Leukocytes [#/volume] in Blood by Automated count 8.0 10^3/uL 4.2 - 1 1.0 [facility] Erythrocytes [#/volume] in Blood by Automated count 3.33 10^6/uL 4. 20 - 5.40 L [facility] Hemoglobin [Mass/volume] in Blood 9.4 g/dL 12.0 - 16.0 L [facility] Hematocrit [Volume Fraction] of Blood by Automated count 30.4 % 3 7.0 - 47.0 L [facility] Erythrocyte mean corpuscular volume [Entitic volume] by Auto mated count 91.3 fL 81.0 - 101 [facility] Erythrocyte mean corpuscular hemoglobin [Entitic mass] by Automated count 28.2 pg 27.0 - 34.0 [facility] Erythrocyte mean corpuscular hemoglobin concentration [Mass/volume] by Automated count 30.9 g/dL 31.0 - 36.0 L [facility] Erythrocyte distribution width [Ratio] by Automated count 15.9 % 11.5 - 14.5 H [facility] Platelets [#/volume] in Blood by Automated count 323 10^3/uL 150 - 45 0 [facility] Platelet mean volume [Entitic volume] in Blood by Automated count 9.9 fL 7.4 - 10.4 [facility] Neutrophils/100 leukocytes in Blood by Automated count 58.5 % 37. 0 - 80.0 [facility] Lymphocytes/100 leukocytes in Blood by Manual count 29.3 % 25.0 - 40.0 [facility] Monocytes/100 leukocytes in Blood by Automated count 8.3 % 3.0 - 8.0 H [facility] Eosinophils/100 leukocytes in Blood by Automated count 2.5 % 0.0 - 7.0 [facility] Basophils/100 leukocytes in Blood by Automated count 1.0 % 0.0 - 2.5 [facility] %IG 0.4 % 0.0 - 0.0 H [facility] %NRBC 0.0 % 0.0 - 0.0 [facility] al Neutrophils [#/volume] in Blood by Automated count 4.66 10^3/uL 2.00 - 6.90 [facility] Lymphocytes [#/volume] in Blood by Automated count 2.33 10^3/uL 0.60 - 3.40 [facility] Monocytes [#/volume] in Blood by Automated count 0.66 10^3/uL 0.00 - 0.90 [facility] Eosinophils [#/volume] in Blood by Automated count 0.20 10^3/uL 0.00 - 0.70 [facility] Basophils [#/volume] in Blood by Automated count 0.08 10^3/uL 0.00 - 0.20 [facility] #IG 0.03 10^3/uL 0.00 - 0.10 [facility] #NRBC 0.00 10^3/uL 0.00 - 0.00 [facility] MANUAL DIFF NOT INDICATED [facility] RBC MORPH NOT INDICATED [facility] Ho spital ID Date Data Source [id number] 06/30/2021 01:40:00 AM EST [facility] 1 OrderSheet [facility] Emergency Department [address] [place] [address] Phone #: ext- [phone] 06/30/2021 01:33 Patient: [...] 06/30/2021 07:07 Minna,(1gm/50mL) IVPB Velia Telles MD; Xeocseo9347 mg withDextrose 50 mlspike bag (D5W)GENERAL ORDERSOrder Description Priority Entered Acknowledged Venita 02:14 06/30/2021 02:14 Morteza Blue OrderSheet [facility] Emergency Department [address] [place] [address] Phone #: ext- [phone] 06/30/2021 01:33 Patient: [...] rce(s) Supporting Document(s) ID Date Data Source [id number] 06/30/2021 01:40:00 AM EST [facility] 1 Medication Reconciliation Report [facility] Emergency Department [address] [place] [address] Phone #: [phone] ext- [phone] 06/30/2021 01:33 Patient: JAJA WEBB Sex: F [...] administered: 01:53 06/30/2021 2 Medication Reconciliation Report [facility] Emergency Department [address] [place] [address] Phone #: ext- [phone] 06/30/2021 01:33 Patient: JAJA WEBB Sex: F : 1940 Age: 81yROCEPHIN (1GM/50ML) [IVPB] IVPB bolus 0, then 1 gm 100 mL/hr, administered: 07:07 06/30/2021The following Medications were prescribed to the patient:None. Name Value Range Interpretation Code Description Data Aura rce(s) Supporting Document(s) ID Date Data Source [id number] 06/30/2021 01:40:00 AM EST [facility] 1 Medication Administration Record [facility] Emergency Department [address] [place] [address] Phone #: ext [phone] 06/30/2021 01:33 Patient: JAJA WEBB Sex: F : 1940 Age: 81yWeight: 65.7 kgHeight/Length: 59 inBMI: 29.3ALLERGIES: Aspirin, Codeine Phosphate Date/Time Medication Administered Medication OrderedGiven D-50 [IVP] D-50 IVP 50 mL (NOW x1)01:48 06/30/2021 Dose: 50 mL Nancy Reynoso, Site: #1 right ACStart SODIUM CHLORIDE [IV] IV NS 500 mL Bolus : Bolus 71732:53 06/30/2021 Dose: IV Fluids mL (X1)Liz Blue R.N. Rate: 500 mL/hr over 1 hour(s)---- Dispensed: 500 mL bagStop Site: #1 right AC03:47 06/30/2021Liz Blue R.N.Start ROCEPHIN (1GM/50ML) [IVPB] Rocephin (1gm/50mL) IVPB 944585:07 06/30/2021 (CEFTRIAXONE SODIUM) mg with Dextrose 50 ml spike Nancy Klein, Dose: 1 gm IVPB (D5W)---- Rate: 100 mL/hr over 30 minute(s)Stop D ispensed: 50 mL bag07:40 06/30/2021 Site: #1 right Binta Trimble R.N. Name Value Range Interpretation Code Description Data Aura rce(s) Supporting Document(s) ID Date Data Source [id number] 06/30/2021 01:40:00 AM [facility] 1 General Instructions [facility] Emergency Department [address] [place] [address] Phone #: ext- [phone] 06/30/2021 01:33 Patient: JAJA WEBB Sex: F : 1940 Age: 81yHypoglycemia.Urinary tract infection.(Electronically signed by Velia Telles MD 06/30/2021 07:38) Name Value Range Interpretation Code Description Data Aura e(s) Supporting Document(s) ID Date Data Source [id number] 06/30/2021 01:40:00 AM [facility] 1 Clinical Report - Nurses [facility] Emergency Department [address] [place] [address] Phone #: ext- [phone] 06/30/2021 01:33 Patient: JAJA WEBB Sex: F : 1940 Age: 81yTRIAGEArrived by EMS. Historian: long term records.Acuity: LEVEL 2.Chief Complaint: UNRESPONSIVE.Alert. No acute distress.This started just prior to arrival. Unknown when patient was last known well. ( Patient arrived by EMSfrom long term where she was found to be unresponsive and breathing. FSBS at long term was32. Nursing staff at long term reports patient received 8u Novolog at 1700 [...] wrong value. 2 Clinical Report - Nurses [facility] Emergency Department [address] [place] [address] Phone #: ext- [phone] 06/30/2021 01:33 Patient: TRACEY JAJA [facility] t#: [id number] Sex: F : 1940 Age: 81yTresiba FlexTouch [...] of CRE. 3 Clinical Report - Nurses [facility] Emergency Department [address] [place] [address] Phone #: ext- [phone] 06/30/2021 01:33 [id number] Sex: F : 1940 Age: 81y SELF [...] Blue R.N. 4 Clinical Report - Nurses [facility] Emergency Department [address] [place] [address] Phone #: ext- [phone] 06/30/2021 01:33 Patient: [...] 06/30/21 Minna, 5 Clinical Report - Nurses [facility] Emergency Department [address] [place] [address] Phone #: ext- [phone] 06/30/2021 01:33 Patient: JAJA WEBB Sex: F : 1940 Age: 07pBlvuvkc50:43 06/30/21. BP: 110/47. HR: 52. O2 saturation: [...] calm and 6 Clinical Report - Nurses [facility] Emergency Department [address] [place] [address] Phone #: ext- [phone] 06/30/2021 01:33 Patient: [...] RR: 18. O2 saturation: 100%. --09:10 06/30/21 [facility] 07:40 06/30/2021 ROCEPHIN (1GM/50ML) IVPB via [...] Gleason R.N. 7 Clinical Report - Nurses [facility] Emergency Department [address] [place] [address] Phone #: ext- [phone] 06/30/2021 01:33 Patient: TRACEY JAJA Sex: F : 1940 Age: 81y Name Value Range Interpretation Code Description Data Aura rce(s) Supporting Document(s) ID Date Data Source [id number] 06/30/2021 01:40:00 AM EST [facility] 1 Clinical Report - Physicians/Mid Levels [facility] Emergency Department [address] [place] [address] Phone #: ext- [phone] 06/30/2021 01:33 Patient: JAJA WEBB Sex: F [...] well. ( Patient arrived by EMS from long term where she was found to be unresponsive and breathing. FSBS at long term was 32. Nursing staff at long term reports patient received 8u Novolog at 1700 [...] units. 2 Clinical Report - Physicians/Mid Levels [facility] Emergency Department [address] [place] [address] Phone #: ext- [phone] 06/30/2021 01:33 Patient: [...] 47.0) 3 Clinical Report - Physicians/Mid Levels [facility] Emergency Department [address] [place] [address] Phone #: ext- [phone] 06/30/2021 01:33 Patient: [...] READ BACK LT, RN BY: MLE DATE/TIME [id number] BUN 25 H MG/DL (7 - 21) [...] Male GFR Interprentation 20-49 yrs >60 mL/min Lukkym95-60 yrs >56 mL/min Normal 60-69 yrs >49 mL/min Normal 70-79yrs>42 mL/min Normal 80 and above >35 mL/min Normal Female GFRInterpretation 20-39 yrs >60 mL/min Normal 40-49 yrs >58 mL/minNormal 50-59 yrs >51 mL/min Normal 60-69 yrs >45 mL/min Wwscrn56-91 yrs >39 mL/min Normal 80 and above >32 mL/min NormalUA REFLEX TO UA CULTURE: (JUNO: 06/30/2021 03:45) ( MsgRcvd 06/30 03:58) Final results 4 Clinical Report - Physicians/Mid Levels [facility] Emergency Department [address] [place] [address] Phone #: ext- [phone] 06/30/2021 01:33 Patient: [...] 06/30/2021 07:38) 5Clinical Report - Physicians/Mid Levels [facility] Emergency Department [address] [place] [address] Phone #: ext- [phone] 06/30/2021 01:33 Patient: TRACEY JAJA Sex: F : 1940 Age: 81y Name Value Range Interpretation Code Description Data Aura rce(s) Supporting Document(s) ID Date Data Source [id number] 06/30/2021 03:57:00 AM [facility] Name Value Range Interpretation Code Description Data Aura rce(s) Supporting Document(s) UA REFLEX TO UA CULTURE [facility] URINALYSIS SOURCE R [facility] Hospit al COLOR yellow NORMAL: Yellow [facility] ospital CLARITY turbid NORMAL: Clear [facility] spital Specific gravity of Urine by Test strip 1.010 1.001 - 1.030 [facility] pH 5 5 - 9 [facility] Glucose [Mass/volume] in Urine by Test strip NORM NORMAL: Negat [facility] Bilirubin.total [Presence] in Urine by Test strip NEG NORMAL: Negative [facility] Ketones [Presence] in Urine by Test strip NEG NORMAL: Negative [facility] Protein [Mass/volume] in Urine by Test strip 30 NORMAL: Negat [facility] Nitrite [Presence] in Urine by Test strip POS NORMAL: Negative [facility] BLOOD 150 NORMAL: Negative [facility] Leukocyte esterase [Presence] in Urine by Test strip 500 VELIA L: Negative [facility] Urobilinogen [Mass/volume] in Urine by Test strip NOR less santa n 1.0 mg/dL [facility] MICROSCOPIC See Below [facility] ital WBC TNTC NORMAL: NONE SEEN [facility] Erythrocytes [#/volume] in Urine by Test strip 1 - 3 NORMAL: NON E SEEN [facility] EPITHELIAL FEW NORMAL: NONE SEEN [facility] Bacteria [Presence] in Urine sediment by Light microscopy 1+ SMALL NORMAL: NONE SEEN [facility] ID Date Data Source [id number] 06/30/2021 10:46:00 AM [facility] Name Value Range Interpretation Code Description Data Aura rce(s) Supporting Document(s) Hemoglobin A1c/Hemoglobin.total in Blood 8.2 % 4.4 - 6.1 H [facility] {A1]{HB] ID Date Data Source [id number] 06/30/2021 02:24:00 AM [facility] Name Value Range Interpretation Code Description Data Aura rce(s) Supporting Document(s) Magnesium [Mass/volume] in Serum or Plasma 2.0 MG/DL 1.7 - 2.2 [facility] ID Date Data Source [id number] 06/30/2021 02:19:00 AM EST [facility] Name Value Range Interpretation Code Description Data Aura rce(s) Supporting Document(s) COMPREHENSIVE METABOLIC PANEL [facility] COMPREHENSIVE METABOLIC PANEL Sodium [Moles/volume] in Serum or Plasma 141 mEq/L 134 - 153 [facility] Potassium [Moles/volume] in Serum or Plasma 4.3 mEq/L 3.6 - 5.0 [facility] Chloride [Moles/volume] in Serum or Plasma 107 mEq/L 98 - 107 [facility] Carbon dioxide, total [Moles/volume] in Serum or Plasma 24 MEQ/L 22 - 30 [facility] Glucose [Mass/volume] in Serum or Plasma 20 MG/DL 70 - 99 LL [facility] CALL/ READ BACK LT, RN [facility] BY: MLE [facility] Hospit al DATE/TIME [id number] [facility] ital BUN 25 MG/DL 7 - 21 H [facility] Creatinine [Mass/volume] in Serum or Plasma 0.8 MG/DL 0.7 - 1.5 [facility] BUN/CREAT 31 8 - 27 H [facility] al Protein [Mass/volume] in Serum or Plasma 7.5 G/DL 6.3 - 8.2 [facility] Albumin [Mass/volume] in Serum or Plasma 3.5 G/DL 3.9 - 5.0 L [facility] Globulin [Mass/volume] in Serum by calculation 4.0 GM/DL 2.4 - 3.2 H [facility] A/G RATIO 0.9 0.8 - 2.0 [facility] al Calcium [Mass/volume] in Serum or Plasma 9.6 MG/DL 8.4 - 10.2 [facility] Bilirubin.total [Mass/volume] in Serum or Plasma <0.7 MG/DL 0.2 - 1.3 [facility] Alkaline phosphatase [Enzymatic activity/volume] in Serum or Plasma 121 U/L 38 - 126 [facility] Aspartate aminotransferase [Enzymatic activity/volume] in Serum or Plasma 21 U/L 5 - 40 [facility] Alanine aminotransferase [Enzymatic activity/volume] in Seru m or Plasma 23 U/L 7 - 56 [facility] Anion gap 3 in Serum or Plasma 10.0 mmol/L 8.0 - 16.0 [facility] AGE 81 yrs [facility] Hospit al NON-AA GFR >60 mL/min [facility] Hosp ital AFR AMER GFR >60 [facility] Hos pital Male GFR In terprentation [...] >32 mL/min Normal ID Date Data Source [id number] 06/30/2021 01:59:00 AM EST [facility] Name Value Range Interpretation Code Description Data Aura rce(s) Supporting Document(s) CBC W/AUTOMATED DIFF [facility] COMPLETE BLOOD COUNT Leukocytes [#/volume] in Blood by Automated count 11.0 10^3/uL 4.2 - 11.0 [facility] Erythrocytes [#/volume] in Blood by Automated count 3.60 10^6/uL 4. 20 - 5.40 L [facility] Hemoglobin [Mass/volume] in Blood 10.2 g/dL 12.0 - 16.0 L [facility] Hematocrit [Volume Fraction] of Blood by Automated count 33.3 % 3 7.0 - 47.0 L [facility] Erythrocyte mean corpuscular volume [Entitic volume] by Auto mated count 92.5 fL 81.0 - 101 [facility] Erythrocyte mean corpuscular hemoglobin [Entitic mass] by Automated count 28.3 pg 27.0 - 34.0 [facility] Erythrocyte mean corpuscular hemoglobin concentration [Mass/volume] by Automated count 30.6 g/dL 31.0 - 36.0 L [facility] Erythrocyte distribution width [Ratio] by Automated count 16.1 % 11.5 - 14.5 H [facility] Platelets [#/volume] in Blood by Automated count 383 10^3/uL 150 - 45 0 [facility] Platelet mean volume [Entitic volume] in Blood by Automated count 9.9 fL 7.4 - 10.4 [facility] Neutrophils/100 leukocytes in Blood by Automated count 65.2 % 37. 0 - 80.0 [facility] Lymphocytes/100 leukocytes in Blood by Manual count 25.2 % 25.0 - 40.0 [facility] Monocytes/100 leukocytes in Blood by Automated count 8.1 % 3.0 - 8.0 H [facility] [facility] Eosinophils/100 leukocytes in Blood by Automated count 0.7 % 0.0 - 7.0 [facility] Basophils/100 leukocytes in Blood by Automated count 0.5 % 0.0 - 2.5 [facility] %IG 0.3 % 0.0 - 0.0 H [facility] Hospit al %NRBC 0.0 % 0.0 - 0.0 [facility] al Neutrophils [#/volume] in Blood by Automated count 7.20 10^3/uL 2.00 - 6.90 H [facility] Lymphocytes [#/volume] in Blood by Automated count 2.78 10^3/uL 0.60 - 3.40 [facility] Monocytes [#/volume] in Blood by Automated count 0.89 10^3/uL 0.00 - 0.90 [facility] Eosinophils [#/volume] in Blood by Automated count 0.08 10^3/uL 0.00 - 0.70 [facility] Basophils [#/volume] in Blood by Automated count 0.06 10^3/uL 0.00 - 0.20 [facility] #IG 0.03 10^3/uL 0.00 - 0.10 [facility] ospital #NRBC 0.00 10^3/uL 0.00 - 0.00 [facility]spital MANUAL DIFF NOT INDICATED [facility] RBC MORPH NOT INDICATED [facility] spital ID Date Data Source [id number] 06/27/2021 06:20:00 PM EDT [facility] [address] [place] [address] PHONE: [phone] FAX: [phone] Name ..............: TRACEY WILKINSON Acct Number ...........................: [id number] ROOM. ............: TR-03 MR Number ............................: [id number] Stay type.........: E/R Discharge Date...............:06/27/21 Admit Date .....: 06/27/21 Admit Phys .............................: GERMANIA WILDER Date of ..: 1940 Family Phys ...........................: NO PCP Phone..............: [phone] Age.................................:81 Film# ...............:[id number] Sex.................................:F Unsigned transcriptions are preliminary reports and do [place] [id number] COMPLETE:06/27/21 16:30 [place] [id number] Please See Scanned Results. Name Value Range Interpretation Code Description Data Aura rce(s) Supporting Document(s) ID Date Data Source [id number] 06/27/2021 11:09:00 AM EDT [facility] [address] [place] [address] PHONE: [phone] FAX: [phone] Name .................. : TRACEY JANUARY Acct Number.................. : [id number] ROOM. ................. : TR-03 MR Number ................... : [id number] Stay type ............. : E/R Discharge Date......... ... : Admit Date ......... : 06/27/21 Admit Phys .................... : GERMANIA WILDER Date of ....... : 1940 Family Phys ................... : NO PCP Phone .................. : [phone] Age ................................ : 81 Film# .................. .:[id number] Sex ................................. : F Unsigned transcriptions are preliminary reports and do not represent a medical or legal document CT HEAD W/O CONTRAST [id number] COMPLETE:06/27/21 07:09 AML [id number] Reason(s): Altered Mental Status CT BRAIN WITHOUT [...] provided by Emily. Page 1 of 2 [facility] [address] [place] [address] PHONE: [phone] FAX: [phone] Name .................. : TRACEY JAJA Acct Number.................. : [id number] ROOM. ................. : TR-03 MR Number .. ................. : [id number] Stay type ............. : E/R Discharge Date......... ... : Admit Date ......... : 06/27/21 Admit Phys .................... : GERMANIA HDZ Date of ....... : 1940 Family Phys ................... : NO PCP Phone .................. : [phone] Age ................................ : 81 Film# .................. .:[id number] Sex ................................. : F Unsigned transcriptions are preliminary reports and do not represent a medical or legal document CT HEAD W/O CONTRAST [id number] COMPLETE:06/27/21 07:09 AML [id number] Reason(s): Altered Mental Status Electronically Reviewed and Signed By Yony Coates MD , 06/27/21 11:09, CHRISTIE Transcribe Initials: SSR, Transcribe Date: 06/27/21 08:33, Dictation Date: Copy for: 010 EMERGENCY SRV Copy for: 710 MED REC Page 2 of 2 Name Value Range Interpretation Code Description Data Aura rce(s) Supporting Document(s) ID Date Data Source [id number] 06/27/2021 11:09:00 AM EDT [facility] [address] [place] [address] PHONE: [phone] FAX: [phone] Name .................. : TRACEY JANUARY Acct Number.................. : [id number] ROOM. ................. : TR03 MR Number ................... : [id number] Stay type ............. : E/R Discharge Date......... ... : Admit Date ......... : 06/27/21 Admit Phys .................... : GERMANIA HDZ Date of ....... : 1940 Family Phys ................... : NO PCP Phone .................. : [phone] Age ................................ : 81 Film# .................. .:[id number] Sex ................................. : F Unsigned transcriptions are preliminary reports and do not represent a medical or legal document CHEST PORTABLE [id number] COMPLETE:06/27/21 07:09 AML [id number] Reason(s): Shortness of Breath PORTABLE CHEST SINGLE [...] rce(s) Supporting Document(s) ID Date Data Source [id number] 06/27/2021 09:16:00 AM EDT [facility] Name Value Range Interpretation Code Description Data Aura rce(s) Supporting Document(s) UA REFLEX TO UA CULTURE [facility] URINALYSIS SOURCE R [facility] Hospit al COLOR yellow NORMAL: Yellow [facility] H ospital CLARITY clear NORMAL: Clear [facility] Ho spital Specific gravity of Urine by Test strip 1.015 1.001 - 1.030 [facility] pH 5 5 - 9 [facility] Glucose [Mass/volume] in Urine by Test strip NORM NORMAL: Negat [facility] Bilirubin.total [Presence] in Urine by Test strip NEG NORMAL: Negative [facility] Ketones [Presence] in Urine by Test strip NEG NORMAL: Negative [facility] Protein [Mass/volume] in Urine by Test strip 15 NORMAL: Negat [facility] Nitrite [Presence] in Urine by Test strip NEG NORMAL: Negative [facility] BLOOD NEG NORMAL: Negative [facility] Leukocyte esterase [Presence] in Urine by Test strip NEG VELIA L: Negative [facility] Urobilinogen [Mass/volume] in Urine by Test strip NOR less santa n 1.0 mg/dL [facility] MICROSCOPIC See Below [facility] ital WBC 1 - 3 NORMAL: NONE SEEN [facility] Erythrocytes [#/volume] in Urine by Test strip 0 - 1 NORMAL: NON E SEEN [facility] EPITHELIAL FEW NORMAL: NONE SEEN [facility] Bacteria [Presence] in Urine sediment by Light microscopy 1+ SMALL NORMAL: NONE SEEN [facility] Mucus [Presence] in Urine sediment by Light microscopy Trace NORMAL: NONE SEEN [facility] Amorphous sediment [Presence] in Urine sediment by Light hector roscopy RARE NORMAL: NONE SEEN [facility] Casts [#/area] in Urine sediment by Microscopy low power field N ot Indicated [facility] Crystals [type] in Urine sediment by Light microscopy Not Indicated [facility] YEAST None Seen [facility] al ID Date Data Source [id number] 06/27/2021 07:21:00 AM EDT [facility] Name Value Range Interpretation Code Description Data Aura rce(s) Supporting Document(s) BNP 556 PG/ML 0 - 450 [facility] ID Date Data Source [id number] 06/27/2021 07:21:00 AM EDT [facility] Name Value Range Interpretation Code Description Data Aura rce(s) Supporting Document(s) Lipase [Enzymatic activity/volume] in Serum or Plasma 11 U/L 13 - 60 L [facility] ID Date Data Source [id number] 06/27/2021 07:21:00 AM EDT [facility] Name Value Range Interpretation Code Description Data Aura rce(s) Supporting Document(s) COMPREHENSIVE METABOLIC PANEL [facility] COMPREHENSIVE METABOLIC PANEL Sodium [Moles/volume] in Serum or Plasma 136 mEq/L 134 - 153 [facility] Potassium [Moles/volume] in Serum or Plasma 5.4 mEq/L 3.6 - 5.0 H [facility] Chloride [Moles/volume] in Serum or Plasma 103 mEq/L 98 - 107 [facility] Carbon dioxide, total [Moles/volume] in Serum or Plasma 22 MEQ/L 22 - 30 [facility] Glucose [Mass/volume] in Serum or Plasma 103 MG/DL 70 - 99 H [facility] BUN 44 MG/DL 7 - 21 H [facility] al Creatinine [Mass/volume] in Serum or Plasma 1.0 MG/DL 0.7 - 1.5 [facility] BUN/CREAT 44 8 - 27 H [facility] Protein [Mass/volume] in Serum or Plasma 7.5 G/DL 6.3 - 8.2 [facility] Albumin [Mass/volume] in Serum or Plasma 3.5 G/DL 3.9 - 5.0 L [facility] Globulin [Mass/volume] in Serum by calculation 4.0 GM/DL 2.4 - 3.2 H [facility] A/G RATIO 0.9 0.8 - 2.0 [facility] Calcium [Mass/volume] in Serum or Plasma 9.1 MG/DL 8.4 - 10.2 [facility] Bilirubin.total [Mass/volume] in Serum or Plasma <0.7 MG/DL 0.2 - 1.3 [facility] Alkaline phosphatase [Enzymatic activity/volume] in Serum or Plasma 135 U/L 38 - 126 H [facility] Aspartate aminotransferase [Enzymatic activity/volume] in Serum or Plasma 25 U/L 5 - 40 [facility] Alanine aminotransferase [Enzymatic activity/volume] in Seru m or Plasma 29 U/L 7 - 56 [facility] Anion gap 3 in Serum or Plasma 11.0 mmol/L 8.0 - 16.0 [facility] AGE 81 yrs [facility] al NON-AA GFR 56 mL/min [facility] AFR AMER GFR >60 [facility] Hos pital Male GFR In terprentation [...] >32 mL/min Normal ID Date Data Source [id number] 06/27/2021 07:07:00 AM EDT [facility] Name Value Range Interpretation Code Description Data Aura rce(s) Supporting Document(s) Thyrotropin [Units/volume] in Serum or Plasma by Detec tion limit <= 0.05 mIU/L 1.96 uIU/mL 0.47 - 5.01 [facility] ID Date Data Source [id number] 06/27/2021 06:58:00 AM EDT [facility] Name Value Range Interpretation Code Description Data Aura rce(s) Supporting Document(s) TROPONIN T <0.01 NG/ML 0.00 - 0.10 [facility] ospital TROPONIN T0.1 ng/ml Recommended as the c linical threshold value forTroponin T. ID Date Data Source [id number] 06/27/2021 06:49:00 AM T [facility] Name Value Range Interpretation Code Description Data Aura rce(s) Supporting Document(s) CBC W/AUTOMATED DIFF [facility] COMPLETE BLOOD COUNT Leukocytes [#/volume] in Blood by Automated count 12.2 10^3/uL 4.2 - 11.0 H [facility] Erythrocytes [#/volume] in Blood by Automated count 3.56 10^6/uL 4. 20 - 5.40 L [facility] Hemoglobin [Mass/volume] in Blood 10.1 g/dL 12.0 - 16.0 L [facility] Hematocrit [Volume Fraction] of Blood by Automated count 32.7 % 3 7.0 - 47.0 L [facility] Erythrocyte mean corpuscular volume [Entitic volume] by Auto mated count 91.9 fL 81.0 - 101 [facility] Erythrocyte mean corpuscular hemoglobin [Entitic mass] by Automated count 28.4 pg 27.0 - 34.0 [facility] Erythrocyte mean corpuscular hemoglobin concentration [Mass/volume] by Automated count 30.9 g/dL 31.0 - 36.0 L [facility] Erythrocyte distribution width [Ratio] by Automated count 16.3 % 11.5 - 14.5 H [facility] Platelets [#/volume] in Blood by Automated count 444 10^3/uL 150 - 45 0 [facility] Platelet mean volume [Entitic volume] in Blood by Automated count 10.1 fL 7.4 - 10.4 [facility] Neutrophils/100 leukocytes in Blood by Automated count 78.6 % 37. 0 - 80.0 [facility] Lymphocytes/100 leukocytes in Blood by Manual count 13.3 % 25.0 - 40.0 L [facility] Monocytes/100 leukocytes in Blood by Automated count 6.5 % 3.0 - 8.0 [facility] Eosinophils/100 leukocytes in Blood by Automated count 0.7 % 0.0 - 7.0 [facility] Basophils/100 leukocytes in Blood by Automated count 0.4 % 0.0 - 2.5 [facility] %IG 0.5 % 0.0 - 0.0 [facility] %NRBC 0.0 % 0.0 - 0.0 [facility] al Neutrophils [#/volume] in Blood by Automated count 9.61 10^3/uL 2.00 - 6.90 H [facility] Lymphocytes [#/volume] in Blood by Automated count 1.63 10^3/uL 0.60 - 3.40 [facility] Monocytes [#/volume] in Blood by Automated count 0.80 10^3/uL 0.00 - 0.90 [facility] Eosinophils [#/volume] in Blood by Automated count 0.08 10^3/uL 0.00 - 0.70 [facility] Basophils [#/volume] in Blood by Automated count 0.05 10^3/uL 0.00 - 0.20 [facility] #IG 0.06 10^3/uL 0.00 - 0.10 [facility] ospital #NRBC 0.00 10^3/uL 0.00 - 0.00 [facility] ospital MANUAL DIFF NOT INDICATED [facility] RBC MORPH NOT INDICATED [facility] Ho spital ID Date Data Source [id number] 06/13/2021 04:46:00 PM EDT [facility] Name Value Range Interpretation Code Description Data Aura rce(s) Supporting Document(s) SARS coronavirus 2 RNA [Presence] in Res piratory specimen by ARLETTE with probe detection NEGATIVE [facility] This lab was ordered by [facility] a nd reported by [facility]. ID Date Data Source [id number] 06/09/2021 07:26:00 PM [facility]T [facility] Name Value Range Interpretation Code Description Data Aura rce(s) Supporting Document(s) SARS coronavirus 2 RNA [Presence] in Res piratory specimen by ARLETTE with probe detection NEGATIVE [facility] This lab was ordered by [facility] a nd reported by [facility]. ID Date Data Source [id number] 05/06/2021 08:00:00 AM EDT [facility] ([facility]) Name Value Range Interpretation Code Description Data Aura rce(s) Supporting Document(s) Microalbumin Urine 83.9 mg/L 1.3-20.0 [facility] ([facility]) Urine Creatinine 78.3 mg/dL 30.0-125.0 [facility] ([facility]) Microalb/Creat Ratio 107.2 ug/mg 0.0-30.0 [facility] ([facility]) ID Date Data Source [id number] 05/03/2021 02:31:00 PM EDT [facility] ([facility]) Name Value Range Interpretation Code Description Data Aura rce(s) Supporting Document(s) Glucose [Mass/volume] in Serum or Plasma 167 mg/dL 74-99 [facility] ([facility]) 100-125 mg/dL PRE-DIABETES/FASTING >126 mg/dL DIABETES/FASTING Urea nitrogen [Mass/volume] in Serum or Plasma 24 mg/dL 7-18 [facility] ([facility]) Creatinine 1.0 mg/dL 0.6-1.3 [facility] Sodium [Moles/volume] in Serum or Plasma 142 meq/L 136-145 [facility] ([facility]) Potassium [Moles/volume] in Serum or Plasma 4.1 meq/L 3.5-5.1 [facility] ([facility]) Chloride [Moles/volume] in Serum or Plasma 106 meq/L 98-107 [facility] ([facility]) Carbon dioxide, total [Moles/volume] in Serum or Plasma 26 meq/L 21 -32 [facility] ([facility]) Alkaline phosphatase isoenzyme [Units/volume] in Serum or Pl asma 134 mg/dL 46-116 [facility] ([facility]) Calcium [Mass/volume] in Serum or Plasma 9.1 mg/dL 8.5-10.1 [facility] ([facility]) Aspartate aminotransferase [Enzymatic activity/volume] in Serum or Plasma 33 U/L 15-37 [facility] ([facility] ) Alanine aminotransferase [Enzymatic activity/volume] in Seru m or Plasma 27 U/L 12-78 [facility] ([facility]) Total Bilirubin 0.7 mg/dL 0.2-1.0 [facility] ([facility]) A/G Ratio 0.76 CALC 1.00-1.90 [facility]) Proteinase 3 Ab [Units/volume] in Serum 8.8 g/dL 6.4-8.2 [facility] ([facility]) Albumin [Mass/volume] in Serum or Plasma 3.8 g/dL 3.4-5.0 [facility] ([facility]) Glomerular filtration rate/1.73 sq M pre dicted among blacks [Volume Rate/Area] in Serum or Plasma by Creatinine-based formula (MDRD) Laboratory test result [facility] <content>CHRONIC KIDNEY DISEASE STAGING PER NKF</content>
<content></content>
<content>STAGE I & II GFR >= 60 NORMAL TO MILDLY DECREASED</content>
<content>STAGE III GFR 30-59 MODERATELY DECREASED</content>
<content>STAGE IV GFR 15-29 SEVERELY DECREASED</content>
<content>STAGE V GFR <15 VERY LITTLE GFR LEFT</content>
<content>ESRD GFR <15 ON FOLDING MACHINE OPERATOR</content>
<content></content> Glomerular filtration rate/1.73 sq M pre dicted among non-blacks [Volume Rate/Area] in Serum or Plasma by Creatinine-based formula (MDRD) 53 mL/min [facility] ([facility]) ID Date Data Source [id number] 05/03/2021 02:31:00 PM EDT [facility] ([facility]) Name Value Range Interpretation Code Description Data Aura rce(s) Supporting Document(s) Hemoglobin A1c/Hemoglobin.total in Blood 8.0 % [facility] ([facility] Lab Result Notes: Pre-Diabetes 5.7 - 6.4 % Diabetes = or > 6.5% Glucose mean value [Mass/volume] in Blood Estimated fr om glycated hemoglobin 183 mg/dL 60-110 [facility] ([facility] ID Date Data Source [id number] 05/03/2021 02:31:00 PM EDT [facility] Name Value Range Interpretation Code Description Data Aura rce(s) Supporting Document(s) Leukocytes [#/volume] in Blood by Automated count 9.1 x10*3/UL 4.1-10 .9 [facility] ([facility] Hemoglobin [Mass/volume] in Blood 9.4 g/dL 12.0-18.0 [facility] NOTE: RESULT VERIFIED. Erythrocytes [#/volume] in Blood by Automated count 3.32 x10*6/UL 4.2 0-6.30 [facility] ([facility] Hematocrit [Volume Fraction] of Blood by Automated count 29.0 % 3 7.0-51.0 [facility] ([facility] MCV 87.4 fL 80.0-97.0 [facility] ([facility]) Erythrocyte distribution width [Ratio] by Automated count 15.0 % 11.6-13.7 [facility] ([facility] MCHC 32.5 g/dL 31.0-38.0 [facility] ([facility]) MCH 28.4 pg 26.0-32.0 [facility] ([facility]) Lymph % 28.2 % 10.0-58.5 [facility] ([facility]) MPV 8.5 FL 7.8-11.0 [facility] ([facility]) Platelets [#/volume] in Blood by Automated count 309 x10*3/UL 140-440 [facility] Neut % 65.0 % 37.0-92.0 [facility] [facility] Lymph # 2.5 x10*3/UL 0.6-4.1 [facility] ([facility]) Mid % 6.8 % 1.7-9.3 [facility] ([facility]) Mid # 0.7 x10*3/UL 0.1-0.6 [facility] ([facility]) Neut # 5.9 x10*3/UL 2.0-7.8 [facility] ([facility]) ID Date Data Source [id number] 05/03/2021 02:31:00 PM EDT [facility]) Name Value Range Interpretation Code Description Data Aura rce(s) Supporting Document(s) Hemoglobin A1c/Hemoglobin.total in Blood Laboratory test result [facility] ([facility]) ID Date Data Source [id number] 04/19/2021 10:54:00 AM EDT [facility]) Name Value Range Interpretation Code Description Data Aura rce(s) Supporting Document(s) Ferritin [Mass/volume] in Serum or Plasma 38 ng/mL 8-252 [facility] ID Date Data Source [id number] 04/19/2021 10:54:00 AM EDT [facility] ([facility]) Name Value Range Interpretation Code Description Data Aura rce(s) Supporting Document(s) Iron (Fe) 49 ug/dL 50-170 [facility] ([facility]) Percent Saturation 13.2 % 13.2-45.0 [facility] ([facility]) Total Iron Binding Capacity 371 ug/dL 250-450 [facility] ([facility]) ID Date Data Source [id number] 04/19/2021 10:53:00 AM EDT [facility] ([facility]) Name Value Range Interpretation Code Description Data Aura rce(s) Supporting Document(s) Hemoglobin [Mass/volume] in Blood 9.9 g/dL 12.0-18.0 [facility] ([facility]) Leukocytes [#/volume] in Blood by Automated count 9.4 x10*3/UL 4.1-10 .9 [facility] ([facility]) NOTE: CBC VERIFIED Erythrocytes [#/volume] in Blood by Automated count 3.49 x10*6/UL 4.2 0-6.30 [facility] ([facility]) Hematocrit [Volume Fraction] of Blood by Automated count 30.3 % 3 7.0-51.0 [facility] ([facility]) MCV 86.9 fL 80.0-97.0 [facility] [facility] MCH 28.6 pg 26.0-32.0 [facility] ([facility]) Erythrocyte distribution width [Ratio] by Automated count 14.8 % 11.6-13.7 [facility] ([facility]) MCHC 32.9 g/dL 31.0-38.0 [facility] [facility] Platelets [#/volume] in Blood by Automated count 313 x10*3/UL 140-440 [facility] ([facility]) MPV 8.7 FL 7.8-11.0 [facility] [facility] Lymph % 21.0 % 10.0-58.5 [facility] [facility] Mid % 6.0 % 1.7-9.3 [facility] [facility] Neut % 73.0 % 37.0-92.0 [facility] ([facility]) Lymph # 1.9 x10*3/UL 0.6-4.1 [facility] ([facility]) Mid # 0.6 x10*3/UL 0.1-0.6 [facility] ([facility]) Neut # 6.9 x10*3/UL 2.0-7.8 [facility] ([facility]) ID Date Data Source [id number] 2021 10:14:00 AM EDT [facility] ([facility]) Name Value Range Interpretation Code Description Data Aura rce(s) Supporting Document(s) Hemoglobin [Mass/volume] in Blood 9.6 g/dL 12.0-18.0 [facility] ([facility]) Leukocytes [#/volume] in Blood by Automated count 9.7 x10*3/UL 4.1-10 .9 [facility] ([facility]) NOTE: CBC VERIFIED Erythrocytes [#/volume] in Blood by Automated count 3.27 x10*6/UL 4.2 0-6.30 [facility] ([facility]) MCH 29.3 pg 26.0-32.0 [facility] ([facility]) Hematocrit [Volume Fraction] of Blood by Automated count 28.4 % 3 7.0-51.0 [facility] MCV 86.9 fL 80.0-97.0 [facility] ([facility]) Erythrocyte distribution width [Ratio] by Automated count 14.8 % 11.6-13.7 [facility] MCHC 33.7 g/dL 31.0-38.0 [facility] ([facility]) Platelets [#/volume] in Blood by Automated count 351 x10*3/UL 140-440 [facility] Lymph % 21.2 % 10.0-58.5 [facility] ([facility]) MPV 8.5 FL 7.8-11.0 [facility] ([facility]) Mid % 6.4 % 1.7-9.3 [facility] ([facility]) Lymph # 2.0 x10*3/UL 0.6-4.1 [facility] ([facility]) Mid # 0.7 x10*3/UL 0.1-0.6 [facility] ([facility]) Neut % 72.4 % 37.0-92.0 [facility] ([facility]) Neut # 7.0 x10*3/UL 2.0-7.8 [facility] ([facility]) ID Date Data Source [id number] 2021 10:14:00 AM EDT [facility] ([facility]) Name Value Range Interpretation Code Description Data Aura rce(s) Supporting Document(s) Glucose [Mass/volume] in Serum or Plasma 92 mg/dL 74-99 [facility] ([facility]) 100-125 mg/dL PRE-DIABETES/FASTING >126 mg/dL DIABETES/FASTING Urea nitrogen [Mass/volume] in Serum or Plasma 20 mg/dL 7-18 [facility] ([facility]) Creatinine 1.0 mg/dL 0.6-1.3 [facility] Sodium [Moles/volume] in Serum or Plasma 140 meq/L 136-145 [facility] ([facility]) Potassium [Moles/volume] in Serum or Plasma 4.2 meq/L 3.5-5.1 [facility] ([facility]) Chloride [Moles/volume] in Serum or Plasma 105 meq/L 98-107 [facility] ([facility]) Calcium [Mass/volume] in Serum or Plasma 9.6 mg/dL 8.5-10.1 [facility] ([facility]) Carbon dioxide, total [Moles/volume] in Serum or Plasma 27 meq/L 21 -32 [facility] ([facility]) Alkaline phosphatase isoenzyme [Units/volume] in Serum or Pl asma 132 mg/dL 46-116 [facility] ([facility] [facility]) Total Bilirubin 0.4 mg/dL 0.2-1.0 [facility] ([facility]) Aspartate aminotransferase [Enzymatic activity/volume] in Serum or Plasma 17 U/L 15-37 [facility] ([facility] ) Alanine aminotransferase [Enzymatic activity/volume] in Seru m or Plasma 23 U/L 12-78 [facility] ([facility]) Albumin [Mass/volume] in Serum or Plasma 3.5 g/dL 3.4-5.0 [facility] ([facility]) Proteinase 3 Ab [Units/volume] in Serum 7.8 g/dL 6.4-8.2 [facility] ([facility]) A/G Ratio 0.81 CALC 1.00-1.90 [facility] Glomerular filtration rate/1.73 sq M pre dicted among blacks [Volume Rate/Area] in Serum or Plasma by Creatinine-based formula (MDRD) Laboratory test result [facility]) <content>CHRONIC KIDNEY DISEASE STAGING PER NKF</content>
<content></content>
<content>STAGE I & II GFR >= 60 NORMAL TO MILDLY DECREASED</content>
<content>STAGE III GFR 30-59 MODERATELY DECREASED</content>
<content>STAGE IV GFR 15-29 SEVERELY DECREASED</content>
<content>STAGE V GFR <15 VERY LITTLE GFR LEFT</content>
<content>ESRD GFR <15 ON FOLDING MACHINE OPERATOR</content>
<content></content> Glomerular filtration rate/1.73 sq M pre dicted among non-blacks [Volume Rate/Area] in Serum or Plasma by Creatinine-based formula (MDRD) 53 mL/min [facility] ([facility]) ID Date Data Source [id number] 2021 10:14:00 AM EDT [facility] ([facility]) Name Value Range Interpretation Code Description Data Aura rce(s) Supporting Document(s) Hemoglobin A1c/Hemoglobin.total in Blood 7.9 % [facility] ([facility]) Lab Result Notes: Pre-Diabetes 5.7 - 6.4 % Diabetes = or > 6.5% Glucose mean value [Mass/volume] in Blood Estimated fr om glycated hemoglobin 180 mg/dL 60-110 [facility] ([facility] ) ID Date Data Source [id number] 2021 10:14:[address] [facility]) Name Value Range Interpretation Code Description Data Aura rce(s) Supporting Document(s) Hemoglobin A1c/Hemoglobin.total in Blood Laboratory test result [facility] ([facility]) ID Date Data Source [id number] 03/26/2021 01:32:[address] [facility] Name Value Range Interpretation Code Description Data Aura rce(s) Supporting Document(s) Laboratory test finding (navigational concept) 31.0 % 38.0-51.0 [facility] Laboratory test finding (navigational concept) 4.4 meq/L 3.5-5.1 [facility] ([facility]) Laboratory test finding (navigational concept) 141 meq/L 136-145 [facility] Laboratory test finding (navigational concept) 244 mg/dL 70-105 [facility] ([facility]) Laboratory test finding (navigational concept) 4.8 mg/dL 4.5-5.3 [facility] ([facility]) Laboratory test finding (navigational concept) 103 meq/L 98-109 [facility] ([facility]) Laboratory test finding (navigational concept) 26.0 MM/L 23.0-27.0 [facility] ([facility]) Laboratory test finding (navigational concept) 0.7 mg/dL 0.6-1.3 [facility] ([facility]) Laboratory test finding (navigational concept) 18 mg/dL 8-26 [facility] ([facility]) ID Date Data Source [id number] 03/05/2021 03:55:00 PM EDT [facility] 1 Medication Reconciliation Report [facility] Emergency Department [address] [place] [address] Phone #: ext- [phone] 03/05/2021 15:55 Patient: [...] rce(s) Supporting Document(s) ID Date Data Source [id number] 03/05/2021 03:55:00 PM EDT [facility] 1 Medication Administration Record [facility] Emergency Department [address] [place] [address] Phone #: ext- [phone] 03/05/2021 15:55 Patient: JAJA WEBB Sex: F : 1940 Age: 80yWeight: 62.5 kgHeight/Length: 60 inBMI: 26.9ALLERGIES: Codeine Phosphate, AspirinDate/Time Medication Administered Medication Ordered Name Value Range Interpretation Code Description Data Aura rce(s) Supporting Document(s) ID Date Data Source [id number] 03/05/2021 03:55:00 PM EDT [facility] 1 General Instructions [facility] Emergency Department [address] [place] [address] Phone #: ext [phone] 03/05/2021 15:55 Patient: JAJA WEBB Sex: F [...] as instructed below.Home care 2 General Instructions [facility] Emergency Department [address] [place] [address] Phone #: ext- [phone] 03/05 15:55 Patient: [...] red color) Loss of consciousness Severe headache [id number] [employer] [place] [address]. All rights reserved. This information is not intended as asubstitute for professional medical care. Always follow your healthcare professional's instructions. You have been given the following additional information: Weakness (Uncertain Cause) 3 General Instructions [facility] Emergency Department [address] [place] [address] Phone #: ext- [phone] 03/05/2021 15:55 Patient: JAJA WEBB Sex: F : 1940 Age: 80y(Electronically signed by Velia Telles MD 03/11/2021 19:38) Name Value Range Interpretation Code Description Data Aura rce(s) Supporting Document(s) ID Date Data Source [id number] 03/05/2021 03:55:00 PM EDT [facility] 1 Clinical Report - Nurses [facility] Emergency Department [address] [place] [address] Phone #: ext [phone] 03/05/2021 15:55 Patient: JAJA WEBB Sex: F [...] notification of patient arrival was received. Treatment AUTOMOTIVE TITLE CLERK: None. SEPSIS SCREEN: SIRS SCREEN NEGATIVE. SEPSIS [...] Arevalo R.N. 2 Clinical Report - Nurses [facility] Emergency Department [address] [place] [address] Phone #: ext- [phone] 03/05/2021 15:55 Patient: [...] --16:02 03/05/21 Radha Andre R.N.ADDITIONAL SURGERIES:no known surgeries.[id number] 03/05/21.SOCIAL HX: No alcohol use or drug [...] Verbalizes understanding. 3 Clinical Report - Nurses [facility] Emergency Department [address] [place] [address] Phone #: ext- [phone] 03/05/2021 15:55 Patient: JAJA WEBB Sex: F [...] difficulty noted. Pt denies dizziness.). --16:43 03/05/21 Rahda Andre R.N.DISPOSITION / DISCHARGE 17:21 03/05/21. BP: 114/65. HR: 68. RR: 18. O2 saturation: 99%. Temp: 98.0 F. Pain level now 0/10. --17:21 03/05/21 Madison glass finisherSebastián ER Tech1 17:21 03/05/21. Condition at departure: improved and stable. No learning barriers present. Discharge instructions provided and reviewed with the patient. Patient verbalized understanding. Written instructions provided in [place]uran. The patient was discharged by the physician. She was discharged home. She left ambulatory and via ambulance. ( Pt waiting on ambulance for ride home.). --17:40 03/05/21 Josefina Arevalo R.N. 4 Clinical Report - Nurses [facility] Emergency Department [address] [place] [address] Phone #: ext- [phone] 03/05/2021 15:55 Patient: JAJA WEBB Sex: F : 1940 Age: 80y ( [place] ambulance service arrives to give patient ride home. Belongings taken with patient, patient alert, stable and smiling at time of leaving dept.). --18:10 03/05/21 Radha Andre R.N.Locked/Released at 03/05/2021 18:11 by Radha Andre R.N. Name Value Range Interpretation Code Description Data Aura rce(s) Supporting Document(s) ID Date Data Source [id number] 03/05/2021 03:55:00 PM EDT [facility] 1 Clinical Report - Physicians/Mid Levels [facility] Emergency Department [address] [place] [address] Phone #: ext- [phone] 03/05/2021 15:55 Patient: [...] daily. 2 Clinical Report - Physicians/Mid Levels [facility] Emergency Department [address] [place] [address] Phone #: [phone]- [phone] 03/05/2021 15:55 [id number] Sex: [facility] : 1940 Age: 80y NovoLOG [...] weakness. 3 Clinical Report - Physicians/Mid Levels [facility] Emergency Department [address] [place] [address] Phone #: ext- [phone] 03/05/2021 15:55 Patient: [...] baldwin(s) Supporting Document(s) ID Date Data Source [id number] 02/05/2021 03:08:00 PM EDT [facility] ([facility]) Name Value Range Interpretation Code Description Data Aura rce(s) Supporting Document(s) Venous PH 7.324 units 7.330-7.430 [facility] ([facility]) Venous Partial Pressure Co2 47.1 mmHg 38.0-50.0 [facility] ([facility]) Venous Partial Pressure O2 40.3 mmHg 30.0-50.0 [facility] ([facility]) Venous Total Co2 25.4 meq/L 24.0-28.0 [facility] Venous Hco3 23.9 meq/L 23.0-27.0 [facility] ([facility]) Venous Base Excess -2.3 [facility] ([facility]) Venous Standard Hco3 22.0 meq/L [facility] ( [facility]) Venous O2 Saturation 71.9 % 60.0-80.0 [facility] ([facility]) ID Date Data Source [id number] 02/05/2021 03:08:00 PM EDT [facility] ([facility]) Name Value Range Interpretation Code Description Data [facility] rce(s) Supporting Document(s) Ammonia [Mass/volume] in Blood 13 uMOL/L [facility] ID Date Data Source [id number] 02/05/2021 02:43:00 PM EDT [facility] ([facility]) Name Value Range Interpretation Code Description Data [facility] rce(s) Supporting Document(s) Influenza A Amplification Laboratory test result [facility] ([facility]) Negative results do not preclude influen za or RSV virus infection and should not be used as the sole basis for treatment or other patient management decisions. Influenza B Amplification Laboratory test result [facility] ([facility]) Negative results do not preclude influen za or RSV virus infection and should not be used as the sole basis for treatment or other patient management decisions. RSV Amplification Laboratory test result [facility] ([facility]) Negative results do not preclude influen za or RSV virus infection and should not be used as the sole basis for treatment or other patient management decisions. Laboratory test finding (navigational concept) Laboratory test result [facility] ([facility]) A false negative result [...] pathogens. DISCLAIMER: Testing was performed using the [employer] SARS-CoV-2 test. This test was developed and its performance characteristics determined by [employer]. This test has not been FDA cleared [...] or revoked sooner. ID Date Data Source [id number] 02/05/2021 02:43:00 PM EDT [facility] Name Value Range Interpretation Code Description Data Aura rce(s) Supporting Document(s) SARS coronavirus 2 RNA [Presence] in Res piratory specimen by ARLETTE with probe detection NEGATIVE [facility] This lab was ordered by [facility] a nd reported by [facility]. ID Date Data Source [id number] 02/05/2021 11:13:00 AM EDT [facility]) Name Value Range Interpretation Code Description Data Aura rce(s) Supporting Document(s) Bedside Glucose 274 mg/dL 83-110 [facility] ([facility]) ID Date Data Source [id number] 02/05/2021 10:59:00 AM EDT [facility] ([facility]) Name Value Range Interpretation Code Description Data Aura rce(s) Supporting Document(s) Lactate [Mass/volume] in Serum or Plasma 1.5 mmol/L 0.4-2.0 [facility] ([facility]) Y/N query for Sepsis Lactate Rule: Y ID Date Data Source [id number] 02/05/2021 10:33:00 AM EDT [facility] ([facility]) Name Value Range Interpretation Code Description Data Aura rce(s) Supporting Document(s) White Blood Count 11.5 10 4.0-10.0 [facility] ([facility]) Red Blood Count 4.05 10 4.00-5.40 [facility] ([facility]) Hemoglobin 11.5 g/dL 12.0-15.5 [facility] Hematocrit 37.4 % 36.0-47.0 [facility] Mean Corpuscular Hemoglobin 28.4 pg 27.0-33.0 [facility] ([facility]) Mean Corpuscular Volume 92.3 fl 80.0-96.0 [facility] ([facility]) Mean Corpuscular HGB Conc 30.7 g/dL 32.0-36.5 [facility] ([facility]) Red Cell Distribution Width 16.5 % 11.5-14.5 [facility] ([facility]) Platelet Count, Automated 298 10 150-450 [facility] ([facility]) Neutrophils % 66.2 % 36.0-66.0 [facility]) [place] % 11.8 % 2.0-8.0 [facility] Lymph % 20.2 % 24.0-44.0 [facility]) Baso % 0.8 % 0.0-1.0 [facility]) Eos % 0.6 % 0.0-3.0 [facility]) Neutrophils # 7.6 10 1.5-8.5 [facility] ([facility]) Immature Granulocyte % 0.4 % 0-3.0 [facility] ([facility]) Nucleated Red Blood Cell % 0.0 % 0-0 [facility] ([facility]) [place] # 1.4 10 0.0-0.8 [facility]) Eos # 0.1 10 0.0-0.5 [facility] Lymph # 2.3 10 1.5-5.0 [facility] Baso # 0.1 10 0.0-0.2 [facility] [facility]) ID Date Data Source [id number] 02/05/2021 10:33:00 AM EDT [facility] ([facility]) Name Value Range Interpretation Code Description Data Aura rce(s) Supporting Document(s) CK-MB Value Mass 1.9 ng/mL [facility] ([facility]) MB/CK Relative Index 1.31 [facility] ([facility]) <content>DIAGNOSIS CRITERIA</content>
<content>MMB ng/ml Relative Index (RI)</content>
<content>NON-AMI < or = 5 N/A</content>
<content>FOX ZONE > 5 < or = 4</content>
<content>AMI > 5 > 4</content>
<content></content> CPK Creatine Phosphokinase 145 U/L 26-192 [facility] ([facility]) Troponin I Laboratory test result [facility] ([facility]) <content>Troponin I Reference Interval f or Siemens [place] LOCI:</content>
<content></content>
<content>99th Percentile= 0.00-0.045 ng/ml</content>
<content></content>
<content>Risk Stratification:</content>
<content><= 0.10 ng/ml Decreased Risk for Adverse Clinical</content>
<content>Events.</content>
<content>0.10-1.50 ng/ml Increased Risk for Adverse Clinical</content>
<content>Events. Evaluation of additional</content>
<content>criterion and/or repeat testing in 2-6</content>
<content>hours is suggested to rule out myocardial</content>
<content>damage.</content>
<content>>= 1.50 ng/ml Indicative of Myocardial Injury.</content>
<content></content> ID Date Data Source [id number] 02/05/2021 10:33:00 AM EDT [facility] ([facility]) Name Value Range Interpretation Code Description Data Aura rce(s) Supporting Document(s) Alt/SGPT 24 U/L 12-78 [facility] [facility]) Alkaline Phosphatase 148 U/L 45-117 [facility] ([facility]) Ast/Sgot 21 U/L 7-37 [facility] [facility]) Bilirubin,Direct 0.2 mg/dL 0.0-0.2 [facility] ([facility]) Bilirubin,Total 0.8 mg/dL 0.2-1.0 [facility] ([facility]) Total Protein 8.9 GM/DL 6.4-8.2 [facility] ([facility]) Albumin/Globulin Ratio 0.8 1.2-2.2 [facility] ([facility]) Albumin 3.9 GM/DL 3.2-5.2 [facility] [facility]) ID Date Data Source [id number] 02/05/2021 10:33:00 AM EDT [facility] ([facility]) Name Value Range Interpretation Code Description Data Aura rce(s) Supporting Document(s) Blood Urea Nitrogen 22 mg/dL 7-18 [facility] ([facility]) Creatinine For GFR 0.90 mg/dL 0.55-1.30 [facility] ([facility]) Glucose, Fasting 269 mg/dL 70-100 [facility] ([facility]) Potassium Serum 4.6 meq/L 3.5-5.1 [facility] ([facility]) Sodium Level 134 meq/L 136-145 [facility] ([facility]) Glomerular Filtration Rate Laboratory test result [facility] ([facility]) <content>Units are mL/min/1.73 m2</content>
<content></content>
<content>Chronic Kidney Disease Staging per NKF:</content>
<content></content>
<content>Stage I & II GFR >=60 Normal to Mildly Decreased</content>
<content>Stage III GFR 30- 59 Moderately Decreased</content>
<content>Stage IV GFR 15-29 Severely Decreased</content>
<content>Stage V GFR <15 Very Little GFR Left</content>
<content>ESRD GFR <15 on FOLDING MACHINE OPERATOR</content>
<content></content> Carbon Dioxide Level 23 meq/L 21-32 [facility] ([facility]) Anion Gap 8 meq/L 8-16 [facility]) Chloride Level 103 meq/L 98-107 [facility] ([facility]) Calcium Level 9.8 mg/dL 8.8-10.2 [facility] ([facility]) ID Date Data Source [id number] 02/05/2021 10:33:00 AM EDT [facility]) Name Value Range Interpretation Code Description Data Aura rce(s) Supporting Document(s) Thyrotropin [Units/volume] in Serum or Plasma by Detec tion limit <= 0.05 mIU/L 2.130 uIU/ML 0.358-3.740 [facility] ) ID Date Data Source [id number] 02/05/2021 10:33:00 AM EDT [facility]) Name Value Range Interpretation Code Description Data Aura rce(s) Supporting Document(s) Appearance, Urine RFX Laboratory test result [facility] Color, Urine RFX Laboratory test result [facility]) Specific [place] Ur Auto RFX 1.014 1.002-1.035 [facility]) PH,Urine RFX 5.0 units 5.0-9.0 [facility] ([facility]) Protein, Urine Auto RFX Laboratory test result [facility]) Glucose, Urine (Ua) Auto RFX Laboratory test result [facility] ([facility]) Urobilinogen, Urine Auto RFX 0.2 mg/dL 0.0-2.0 [facility] ([facility]) Bilirubin, Urine Auto RFX Laboratory test result [facility]) Ketone, Urine Auto RFX Laboratory test result [facility] ([facility]) Leukocyte Esterase Ur Auto RFX Laboratory test result [facility] ([facility]) Nitrite, Urine Auto RFX Laboratory test result [facility] ([facility]) Blood, Urine Blood RFX Laboratory test result [facility] ([facility]) WBC, Urine Auto RFX Laboratory test result 0-3 [facility] ([facility]) Bacteria, Urine Auto RFX Laboratory test result [facility] ([facility]) RBC, Urine Auto RFX 71 /HPF 0-3 [facility] ([facility]) Yeast Like Cell Urine Auto RFX Laboratory test result [facility] ([facility]) Squam Epithelial Cell Ur Aurfx 3 /HPF 0-6 [facility] ([facility]) Hyaline Cast, Urine Auto RFX 0 /LPF 0-1 [facility] ([facility]) ID Date Data Source [id number] 01/02/2021 01:52:00 PM EDT [facility] ([facility]) Name Value Range Interpretation Code Description Data Aura rce(s) Supporting Document(s) Microalbumin Urine 281.2 mg/L 1.3-20.0 [facility]) NOTE: diluted and verified Urine Creatinine 265.8 mg/dL 30.0-125.0 [facility] ([facility]) Microalb/Creat Ratio 105.8 ug/mg 0.0-30.0 [facility] ([facility]) ID Date Data Source [id number] 12/31/2020 12:09:00 PM EDT [facility] ([facility]) Name Value Range Interpretation Code Description Data Aura rce(s) Supporting Document(s) Total Iron Binding Capacity 392 ug/dL 250-450 [facility] ([facility]) Iron (Fe) 40 ug/dL 50-170 [facility]) Percent Saturation 10.2 % 13.2-45.0 [facility] ([facility]) ID Date Data Source [id number] 12/31/2020 12:08:00 PM EDT [facility]) Name Value Range Interpretation Code Description Data Aura rce(s) Supporting Document(s) Urea nitrogen [Mass/volume] in Serum or Plasma 30 mg/dL 7-18 [facility] ([facility]) Glucose [Mass/volume] in Serum or Plasma 119 mg/dL 74-99 [facility] ([facility]) 100-125 mg/dL PRE-DIABETES/FASTING >126 mg/dL DIABETES/FASTING Sodium [Moles/volume] in Serum or Plasma 143 meq/L 136-145 [facility] ([facility]) Potassium [Moles/volume] in Serum or Plasma 4.6 meq/L 3.5-5.1 [facility] ([facility]) Creatinine 1.1 mg/dL 0.6-1.3 [facility] Chloride [Moles/volume] in Serum or Plasma 108 meq/L 98-107 [facility] ([facility]) Carbon dioxide, total [Moles/volume] in Serum or Plasma 23 meq/L 21 -32 [facility] ([facility]) Glomerular filtration rate/1.73 sq M pre dicted among blacks [Volume Rate/Area] in Serum or Plasma by Creatinine-based formula (MDRD) 58 mL/min [facility] <content>CHRONIC KIDNEY DISEASE STAGING PER NKF</content>
<content></content>
<content>STAGE I & II GFR >= 60 NORMAL TO MILDLY DECREASED</content>
<content>STAGE III GFR 30-59 MODERATELY DECREASED</content>
<content>STAGE IV GFR 15-29 SEVERELY DECREASED</content>
<content>STAGE V GFR <15 VERY LITTLE GFR LEFT</content>
<content>ESRD GFR <15 ON FOLDING MACHINE OPERATOR</content>
<content></content> Glomerular filtration rate/1.73 sq M pre dicted among non-blacks [Volume Rate/Area] in Serum or Plasma by Creatinine-based formula (MDRD) 48 mL/min [facility] Calcium [Mass/volume] in Serum or Plasma 8.9 mg/dL 8.5-10.1 [facility] ([facility]) ID Date Data Source [id number] 12/31/2020 12:08:00 PM EDT [facility] ([facility]) Name Value Range Interpretation Code Description Data Aura rce(s) Supporting Document(s) Hemoglobin A1c/Hemoglobin.total in Blood 7.5 % [facility] ([facility]) Lab Result Notes: Pre-Diabetes 5.7 - 6.4 % Diabetes = or > 6.5% Glucose mean value [Mass/volume] in Blood Estimated fr om glycated hemoglobin 169 mg/dL 60-110 [facility] ([facility] ID Date Data Source [id number] 12/31/2020 12:08:00 PM EDT [facility] ([facility]) Name Value Range Interpretation Code Description Data Aura rce(s) Supporting Document(s) Erythrocytes [#/volume] in Blood by Automated count 3.63 x10*6/UL 4.2 0-6.30 [facility] Leukocytes [#/volume] in Blood by Automated count 11.7 x10*3/UL 4.1-1 0.9 [facility] ([facility]) Hemoglobin [Mass/volume] in Blood 10.1 g/dL 12.0-18.0 [facility]) Hematocrit [Volume Fraction] of Blood by Automated count 31.1 % 3 7.0-51.0 [facility]) MCH 27.7 pg 26.0-32.0 [facility] [facility]) MCV 85.7 fL 80.0-97.0 [facility] ([facility]) Erythrocyte distribution width [Ratio] by Automated count 14.2 % 11.6-13.7 [facility]) MCHC 32.3 g/dL 31.0-38.0 [facility] [facility]) MPV 9.1 FL 7.8-11.0 [facility] ([facility]) Platelets [#/volume] in Blood by Automated count 300 x10*3/UL 140-440 [facility] Lymph % 25.9 % 10.0-58.5 [facility] [facility]) Neut % 68.3 % 37.0-92.0 [facility] [facility] Mid % 5.8 % 1.7-9.3 [facility] [facility] Lymph # 3.0 x10*3/UL 0.6-4.1 [facility] ([facility]) Mid # 0.7 x10*3/UL 0.1-0.6 [facility] ([facility]) Neut # 8.0 x10*3/UL 2.0-7.8 [facility] ([facility]) ID Date Data Source [id number] 09/24/2020 11:22:00 AM EST [facility] ([facility]) Name Value Range Interpretation Code Description Data Aura rce(s) Supporting Document(s) Triglyceride [Mass/volume] in Serum or Plasma 78 mg/dL 30-150 [facility] ([facility]) Cholesterol [Mass/volume] in Serum or Plasma 120 mg/dL 131-200 [facility] ([facility]) Cholesterol in HDL [Mass/volume] in Serum or Plasma 54 mg/dL 35-60 [facility] ([facility]) Cholesterol in LDL [Mass/volume] in Serum or Plasma by calcu lation 50 CALC 50-159 [facility] ([facility]) ID Date Data Source [id number] 09/24/2020 11:22:00 AM EST [facility] ([facility]) Name Value Range Interpretation Code Description Data Auar rce(s) Supporting Document(s) Glucose [Mass/volume] in Serum or Plasma 140 mg/dL 74-99 [facility] ([facility]) 100-125 mg/dL PRE-DIABETES/FASTING >126 mg/dL DIABETES/FASTING Urea nitrogen [Mass/volume] in Serum or Plasma 33 mg/dL 7-18 [facility] ([facility]) NOTE: RESULT VERIFIED. Sodium [Moles/volume] in Serum or Plasma 146 meq/L 136-145 [facility] ([facility]) Potassium [Moles/volume] in Serum or Plasma 4.9 meq/L 3.5-5.1 [facility] ([facility]) Creatinine 1.1 mg/dL 0.6-1.3 [facility] Carbon dioxide, total [Moles/volume] in Serum or Plasma 24 meq/L 21 -32 [facility] ([facility]) Chloride [Moles/volume] in Serum or Plasma 111 meq/L 98-107 [facility] ([facility]) Alkaline phosphatase isoenzyme [Units/volume] in Serum or Pl asma 113 mg/dL 46-116 [facility] ([facility]) Calcium [Mass/volume] in Serum or Plasma 8.6 mg/dL 8.5-10.1 [facility] ([facility]) Total Bilirubin 0.2 mg/dL 0.2-1.0 [facility] ([facility]) Alanine aminotransferase [Enzymatic activity/volume] in Seru m or Plasma 22 U/L 12-78 [facility] ([facility]) Aspartate aminotransferase [Enzymatic activity/volume] in Serum or Plasma 21 U/L 15-37 [facility] ([facility] ) Albumin [Mass/volume] in Serum or Plasma 3.3 g/dL 3.4-5.0 [facility] ([facility]) Proteinase 3 Ab [Units/volume] in Serum 7.8 g/dL 6.4-8.2 [facility] ([facility]) A/G Ratio 0.73 CALC 1.00-1.90 [facility] Glomerular filtration rate/1.73 sq M pre dicted among blacks [Volume Rate/Area] in Serum or Plasma by Creatinine-based formula (MDRD) 58 mL/min [facility] <content>CHRONIC KIDNEY DISEASE STAGING PER NKF</content>
<content></content>
<content>STAGE I & II GFR >= 60 NORMAL TO MILDLY DECREASED</content>
<content>STAGE III GFR 30-59 MODERATELY DECREASED</content>
<content>STAGE IV GFR 15-29 SEVERELY DECREASED</content>
<content>STAGE V GFR <15 VERY LITTLE GFR LEFT</content>
<content>ESRD GFR <15 ON FOLDING MACHINE OPERATOR</content>
<content></content> Glomerular filtration rate/1.73 sq M pre dicted among non-blacks [Volume Rate/Area] in Serum or Plasma by Creatinine-based formula (MDRD) 48 mL/min [facility] ([facility]) ID Date Data Source [id number] 09/24/2020 11:22:00 AM EST [facility] ([facility]) Name Value Range Interpretation Code Description Data Aura rce(s) Supporting Document(s) Hemoglobin A1c/Hemoglobin.total in Blood 9.2 % [facility] Lab Result Notes: Pre-Diabetes 5.7 - 6.4 % Diabetes = or > 6.5% Glucose mean value [Mass/volume] in Blood Estimated fr om glycated hemoglobin 217 mg/dL 60-110 [facility] ID Date Data Source [id number] 09/24/2020 11:22:00 AM EST [facility] ([facility]) Name Value Range Interpretation Code Description Data Aura rce(s) Supporting Document(s) Leukocytes [#/volume] in Blood by Automated count 10.1 x10*3/UL 4.1-1 0.9 [facility] NOTE: CBC VERIFIED Hemoglobin [Mass/volume] in Blood 9.6 g/dL 12.0-18.0 [facility] Erythrocytes [#/volume] in Blood by Automated count 3.22 x10*6/UL 4.2 0-6.30 [facility] ([facility]) MCV 89.1 fL 80.0-97.0 [facility] [facility] MCH 29.8 pg 26.0-32.0 [facility]) Hematocrit [Volume Fraction] of Blood by Automated count 28.7 % 3 7.0-51.0 [facility] Platelets [#/volume] in Blood by Automated count 261 x10*3/UL 140-440 [facility] Erythrocyte distribution width [Ratio] by Automated count 14.4 % 11.6-13.7 [facility] ([facility]) MCHC 33.4 g/dL 31.0-38.0 [facility] [facility]) Lymph % 24.3 % 10.0-58.5 [facility] [facility] MPV 8.4 FL 7.8-11.0 [facility] Neut % 70.1 % 37.0-92.0 [facility] Mid % 5.6 % 1.7-9.3 [facility] Lymph # 2.4 x10*3/UL 0.6-4.1 [facility] ([facility]) Mid # 0.6 x10*3/UL 0.1-0.6 [facility] ([facility]) Neut # 7.1 x10*3/UL 2.0-7.8 [facility] ([facility]) ID Date Data Source [id number] 08/23/2020 05:48:00 PM EST [facility] Name Value Range Interpretation Code Description Data Aura rce(s) Supporting Document(s) SARS coronavirus 2 RNA [Presence] in Res piratory specimen by ARLETTE with probe detection [facility] This lab was ordered by [facility] a nd reported by [facility]. ID Date Data Source [id number] 08/10/2020 05:31:00 PM EST [facility] Name Value Range Interpretation Code Description Data Aura rce(s) Supporting Document(s) SARS coronavirus 2 RNA [Presence] in Res piratory specimen by ARLETTE with probe detection [facility] This lab was ordered by [facility] a nd reported by [facility]. ID Date Data Source [id number] 08/10/2020 01:39:00 PM EST [facility] ([facility]) Name Value Range Interpretation Code Description Data Aura rce(s) Supporting Document(s) Appearance, Urine RFX Laboratory test result [facility] ([facility]) PH,Urine RFX 5.0 units 5.0-9.0 [facility] ([facility]) Color, Urine RFX Laboratory test result [facility] ([facility]) Protein, Urine Auto RFX Laboratory test result [facility] ([facility]) Specific [place] Ur Auto RFX 1.016 1.002-1.035 [facility] ([facility]) Ketone, Urine Auto RFX Laboratory test result [facility] ([facility]) Glucose, Urine (Ua) Auto RFX Laboratory test result [facility] ([facility]) Bilirubin, Urine Auto RFX Laboratory test result [facility]) Urobilinogen, Urine Auto RFX 0.2 mg/dL 0.0-2.0 [facility] ([facility]) Leukocyte Esterase Ur Auto RFX Laboratory test result [facility] ([facility]) Blood, Urine Blood RFX Laboratory test result [facility] ([facility]) Nitrite, Urine Auto RFX Laboratory test result [facility] ([facility] RBC, Urine Auto RFX 6 /HPF 0-3 [facility] WBC, Urine Auto RFX 1 /HPF 0-3 [facility] ([facility] Squam Epithelial Cell Ur Aurfx 0 /HPF 0-6 [facility] ([facility]) Bacteria, Urine Auto RFX Laboratory test result [facility] ([facility]) Hyaline Cast, Urine Auto RFX 0 /LPF 0-1 [facility] ID Date Data Source [id number] 08/10/2020 01:39:00 PM EST [facility] ([facility]) Name Value Range Interpretation Code Description Data Aura rce(s) Supporting Document(s) Glucose, Fasting 344 mg/dL 70-100 [facility]) Creatinine For GFR 0.93 mg/dL 0.55-1.30 [facility] ([facility]) Blood Urea Nitrogen 19 mg/dL 7-18 [facility] ([facility]) Sodium Level 135 meq/L 136-145 [facility]) Glomerular Filtration Rate Laboratory test result [facility] ([facility]) <content>Units are mL/min/1.73 m2</content>
<content></content>
<content>Chronic Kidney Disease Staging per NKF:</content>
<content></content>
<content>Stage I & II GFR >=60 Normal to Mildly Decreased</content>
<content>Stage III GFR 30- 59 Moderately Decreased</content>
<content>Stage IV GFR 15-29 Severely Decreased</content>
<content>Stage V GFR <15 Very Little GFR Left</content>
<content>ESRD GFR <15 on FOLDING MACHINE OPERATOR</content>
<content></content> Potassium Serum 5.0 meq/L 3.5-5.1 [facility] ([facility]) Chloride Level 102 meq/L 98-107 [facility] ([facility]) Anion Gap 10 meq/L 8-16 [facility] [facility]) Carbon Dioxide Level 23 meq/L 21-32 [facility] Calcium Level 9.3 mg/dL 8.8-10.2 [facility] ([facility]) ID Date Data Source [id number] 08/10/2020 12:26:00 PM EST [facility] ([facility]) Name Value Range Interpretation Code Description Data Aura rce(s) Supporting Document(s) Bedside Glucose 342 mg/dL 83-110 [facility] ([facility]) ID Date Data Source [id number] 08/10/2020 12:21:00 PM EST [facility] ([facility]) Name Value Range Interpretation Code Description Data Aura rce(s) Supporting Document(s) Glucose, Fasting 345 mg/dL 70-100 [facility] ([facility]) Blood Urea Nitrogen 20 mg/dL 7-18 [facility] ([facility]) Creatinine For GFR 0.94 mg/dL 0.55-1.30 [facility] ([facility]) Glomerular Filtration Rate Laboratory test result [facility] ([facility]) <content>Units are mL/min/1.73 m2</content>
<content></content>
<content>Chronic Kidney Disease Staging per NKF:</content>
<content></content>
<content>Stage I & II GFR >=60 Normal to Mildly Decreased</content>
<content>Stage III GFR 30- 59 Moderately Decreased</content>
<content>Stage IV GFR 15-29 Severely Decreased</content>
<content>Stage V GFR <15 Very Little GFR Left</content>
<content>ESRD GFR <15 on FOLDING MACHINE OPERATOR</content>
<content></content> Sodium Level 134 meq/L 136-145 [facility] ([facility]) Chloride Level 102 meq/L 98-107 [facility] ([facility]) Potassium Serum 6.0 meq/L 3.5-5.1 [facility] ([facility]) Testing was performed on a hemolysed spe cimen. Suggest recollection of specimen for more accurate test results. Carbon Dioxide Level 25 meq/L 21-32 [facility] ([facility]) Anion Gap 7 meq/L 8-16 [facility] ([place] [facility]) Calcium Level 9.3 mg/dL 8.8-10.2 [facility] ([facility]) Ast/Sgot 42 U/L 7-37 [facility] ([place] [facility]) Alt/SGPT 26 U/L 12-78 [facility] ([place] [facility]) Alkaline Phosphatase 127 U/L 45-117 [facility] ([facility]) Bilirubin,Total 0.6 mg/dL 0.2-1.0 [facility] ([facility]) Total Protein 7.8 GM/DL 6.4-8.2 [facility] ([facility]) Albumin 3.2 GM/DL 3.2-5.2 [facility] ([place] [facility]) Albumin/Globulin Ratio 0.7 1.2-2.2 [facility] ([facility]) ID Date Data Source [id number] 08/10/2020 12:21:00 PM EST [facility] ([facility]) Name Value Range Interpretation Code Description Data Aura rce(s) Supporting Document(s) Red Blood Count 3.71 10 4.00-5.40 [facility] ([facility]) White Blood Count 14.0 10 4.0-10.0 [facility] ([facility]) Hemoglobin 10.3 g/dL 12.0-15.5 [facility] Mean Corpuscular Volume 91.6 fl 80.0-96.0 [facility] ([facility]) Hematocrit 34.0 % 36.0-47.0 [facility] Mean Corpuscular HGB Conc 30.3 g/dL 32.0-36.5 [facility] ([facility]) Mean Corpuscular Hemoglobin 27.8 pg 27.0-33.0 [facility] ([facility]) Red Cell Distribution Width 15.4 % 11.5-14.5 [facility] ([facility]) Platelet Count, Automated 260 10 150-450 [facility] ([facility]) Nucleated Red Blood Cell % 0.0 % 0-0 [facility] ([facility]) ID Date Data Source [id number] 08/10/2020 12:21:00 PM EST [facility] ([facility]) Name Value Range Interpretation Code Description Data Aura rce(s) Supporting Document(s) Acetone/Ketone 22.73 mg/dL [facility] ([facility]) ID Date Data Source [id number] 08/10/2020 12:21:00 PM EST [facility] ([facility]) Name Value Range Interpretation Code Description Data Aura rce(s) Supporting Document(s) Venous Partial Pressure Co2 52.5 mmHg 38.0-50.0 [facility] ([facility]) Venous PH 7.311 units 7.330-7.430 [facility] ([facility]) Venous Total Co2 27.5 meq/L 24.0-28.0 [facility] ([facility]) Venous Partial Pressure O2 49.0 mmHg 30.0-50.0 [facility] ([facility]) Venous Hco3 25.9 meq/L 23.0-27.0 [facility] ([facility]) Venous Base Excess -0.8 [facility] ([facility]) Venous Standard Hco3 23.5 meq/L [facility] ( [facility]) Venous O2 Saturation 81.4 % 60.0-80.0 [facility] ([facility]) ID Date Data Source [id number] 08/10/2020 12:21:00 PM EST [facility] ([facility]) Name Value Range Interpretation Code Description Data Aura rce(s) Supporting Document(s) Hemoglobin A1c 10.8 % [facility] ([facility]) <content>REFERENCE RANGES:</content><br/ ><content></content>
<content><=5.6% NORMAL</content>
<content>5.7-6.4% SUGGESTS IMPAIRED GLUCOSE METABOLISM/PREDIABETIC</content>
<content>>= 6.5% ABNORMAL</content>
<content></content> Estimated Average Glucose 263 mg/dL 60-110 [facility] ([facility]) ID Date Data Source [id number] 08/10/2020 12:21:00 PM EST [facility] ([facility]) Name Value Range Interpretation Code Description Data Aura rce(s) Supporting Document(s) Lactate [Mass/volume] in Serum or Plasma 1.7 mmol[facility]L 0.4-2.0 [facility] Y/N query for Sepsis Lactate Rule: Y ID Date Data Source [id number] 08/07/2020 12:59:00 AM EST [facility] ([facility]) Name Value Range Interpretation Code Description Data Aura rce(s) Supporting Document(s) Laboratory test finding (navigational concept) Laboratory test result [facility] ([facility]) A false negative result [...] pathogens. DISCLAIMER: Testing was performed using the [employer] SARS-CoV-2 test. This test was developed and its performance characteristics determined by [employer]. This test has not been FDA cleared [...] or revoked sooner. ID Date Data Source [id number] 08/07/2020 12:59:00 AM EST [facility] Name Value Range Interpretation Code Description Data Aura rce(s) Supporting Document(s) SARS coronavirus 2 RNA [Presence] in Res piratory specimen by ARLETTE with probe detection [facility] This lab was ordered by [facility] a nd reported by [facility]. ID Date Data Source [id number] 08/07/2020 12:57:00 AM EST [facility] ([facility]) Name Value Range Interpretation Code Description Data Aura rce(s) Supporting Document(s) Bedside Glucose 237 mg/dL 83-110 [facility] ([facility]) ID Date Data Source [id number] 08/06/2020 11:13:00 PM EST [facility] ([facility]) Name Value Range Interpretation Code Description Data Aura rce(s) Supporting Document(s) Bedside Glucose 219 mg/dL 83-110 [facility] ([facility]) ID Date Data Source [id number] 08/06/2020 08:05:00 PM EST [facility] ([facility]) Name Value Range Interpretation Code Description Data Aura rce(s) Supporting Document(s) Color, Urine RFX Laboratory test result [facility] ([facility]) Appearance, Urine RFX Laboratory test result [facility] ([facility]) PH,Urine RFX 5.0 units 5.0-9.0 [facility] ([facility]) Specific [place] Ur Auto RFX 1.023 1.002-1.035 [facility] ([facility]) Protein, Urine Auto RFX Laboratory test result [facility] ([facility]) Glucose, Urine (Ua) Auto RFX Laboratory test result [facility] ([facility]) Ketone, Urine Auto RFX Laboratory test result [facility] ([facility]) Urobilinogen, Urine Auto RFX 0.2 mg/dL 0.0-2.0 [facility] ([facility]) Bilirubin, Urine Auto RFX Laboratory test result [facility] ([facility]) Leukocyte Esterase Ur Auto RFX Laboratory test result [facility] ([facility]) Nitrite, Urine Auto RFX Laboratory test result [facility] ([facility]) Blood, Urine Blood RFX Laboratory test result [facility]) RBC, Urine Auto RFX 6 /HPF 0-3 [facility] ([facility]) WBC, Urine Auto RFX 42 /HPF 0-3 [facility] ([facility]) Bacteria, Urine Auto RFX Laboratory test result [facility] ([facility]) Squam Epithelial Cell Ur Aurfx 2 /HPF 0-6 [facility] ([facility]) Hyaline Cast, Urine Auto RFX 0 /LPF 0-1 [facility] ([facility]) ID Date Data Source [id number] 08/06/2020 06:27:00 PM EST [facility] ([facility]) Name Value Range Interpretation Code Description Data Aura rce(s) Supporting Document(s) ABG pH (Arterial) 7.361 units 7.350-7.450 [facility] ( [facility]) ABG Partial Pressure Co2 38.2 mmHg 35.0-45.0 [facility] ABG Partial Pressure O2 89.0 mmHg 75.0-100.0 [facility] ([facility]) ABG Total Co2 22.3 meq/L 23.0-31.0 [facility] ([facility]) ABG Hco3 21.1 meq/L 22.0-26.0 [facility] ([facility]) ABG Base Excess -3.9 [facility] ([facility]) ABG Standard Hco3 21.2 meq/L 22.0-26.0 [facility] ([facility]) ABG O2 Saturation 96.2 % 95.0-99.0 [facility] ID Date Data Source [id number] 08/06/2020 06:18:00 PM EST [facility] ([facility]) Name Value Range Interpretation Code Description Data Aura rce(s) Supporting Document(s) White Blood Count 11.2 10 4.0-10.0 [facility] ([facility]) Red Blood Count 3.97 10 4.00-5.40 [facility] ([facility]) Hematocrit 36.1 % 36.0-47.0 [facility] Hemoglobin 11.1 g/dL 12.0-15.5 [facility] Mean Corpuscular Volume 90.9 fl 80.0-96.0 [facility] ([facility]) Mean Corpuscular Hemoglobin 28.0 pg 27.0-33.0 [facility] ([facility]) Red Cell Distribution Width 14.9 % 11.5-14.5 [facility] ([facility]) Mean Corpuscular HGB Conc 30.7 g/dL 32.0-36.5 [facility] ([facility]) Platelet Count, Automated 234 10 150-450 [facility] ([facility]) Neutrophils % 68.6 % 36.0-66.0 [facility] ([facility]) [place] % 9.5 % 0.0-5.0 [facility] [facility]) Lymph % 20.7 % 24.0-44.0 [facility] [facility] Eos % 0.3 % 0.0-3.0 [facility] [facility] Baso % 0.5 % 0.0-1.0 [facility] [facility] Immature Granulocyte % 0.4 % 0-3.0 [facility] ([facility]) Nucleated Red Blood Cell % 0.0 % 0-0 [facility] ([facility]) Neutrophils # 7.7 10 1.5-8.5 [facility] ([facility]) Lymph # 2.3 10 1.5-5.0 [facility] [facility]) [place] # 1.1 10 0.0-0.8 [facility] [facility]) Eos # 0.0 10 0.0-0.5 [facility] [facility] Baso # 0.1 10 0.0-0.2 [facility] [facility] ID Date Data Source [id number] 08/06/2020 06:18:00 PM EST [facility] ([facility]) Name Value Range Interpretation Code Description Data Aura rce(s) Supporting Document(s) CPK Creatine Phosphokinase 103 U/L 26-192 [facility] ([facility]) MB/CK Relative Index 5.15 [facility] ([facility]) <content>DIAGNOSIS CRITERIA</content>
<content>MMB ng/ml Relative Index (RI)</content>
<content>NON-AMI < or = 5 N/A</content>
<content>FOX ZONE > 5 < or = 4</content>
<content>AMI > 5 > 4</content>
<content></content> Troponin I 0.07 ng/mL [facility] ([facility]) <content>Troponin I Reference Interval f or Siemens [place] LOCI:</content>
<content></content>
<content>99th Percentile= 0.00-0.045 ng/ml</content>
<content></content>
<content>Risk Stratification:</content>
<content><= 0.10 ng/ml Decreased Risk for Adverse Clinical</content>
<content>Events.</content>
<content>0.10-1.50 ng/ml Increased Risk for Adverse Clinical</content>
<content>Events. Evaluation of additional</content>
<content>criterion and/or repeat testing in 2-6</content>
<content>hours is suggested to rule out myocardial</content>
<content>damage.</content>
<content>>= 1.50 ng/ml Indicative of Myocardial Injury.</content>
<content></content> CK-MB Value Mass 5.3 ng/mL [facility] ([facility]) ID Date Data Source [id number] 08/06/2020 06:18:00 PM EST [facility] ([facility]) Name Value Range Interpretation Code Description Data Aura rce(s) Supporting Document(s) Ast/Sgot 18 U/L 7-37 [facility] ([place] [facility]) Alt/SGPT 24 U/L 12-78 [facility] [facility]) Alkaline Phosphatase 150 U/L 45-117 [facility] ([facility]) Bilirubin,Direct 0.1 mg/dL 0.0-0.2 [facility] ([facility]) Total Protein 8.5 GM/DL 6.4-8.2 [facility] ([facility]) Bilirubin,Total 0.5 mg/dL 0.2-1.0 [facility] ([facility]) Albumin 3.4 GM/DL 3.2-5.2 [facility] [facility]) Albumin/Globulin Ratio 0.7 1.2-2.2 [facility] ([facility]) ID Date Data Source [id number] 08/06/2020 06:18:00 PM EST [facility] ([facility]) Name Value Range Interpretation Code Description Data Aura rce(s) Supporting Document(s) Glucose, Fasting 465 mg/dL 70-100 Above upper panic limits [facility] ([facility]) Blood Urea Nitrogen 26 mg/dL 7-18 [facility] ([facility]) Creatinine For GFR 1.34 mg/dL 0.55-1.30 [facility] ([facility]) Glomerular Filtration Rate 40.3 [facility] ([facility]) <content>Units are mL/min/1.73 m2</content>
<content></content>
<content>Chronic Kidney Disease Staging per NKF:</content>
<content></content>
<content>Stage I & II GFR >=60 Normal to Mildly Decreased</content>
<content>Stage III GFR 30- 59 Moderately Decreased</content>
<content>Stage IV GFR 15-29 Severely Decreased</content>
<content>Stage V GFR <15 Very Little GFR Left</content>
<content>ESRD GFR <15 on FOLDING MACHINE OPERATOR</content>
<content></content> Sodium Level 130 meq/L 136-145 [facility] ([facility]) Potassium Serum 5.0 meq/L 3.5-5.1 [facility] ([facility]) Carbon Dioxide Level 22 meq/L 21-32 [facility] ([facility]) Chloride Level 98 meq/L 98-107 [facility] ([facility]) Anion Gap 10 meq/L 8-16 [facility] [facility]) Calcium Level 9.0 mg/dL 8.8-10.2 [facility] ([facility]) ID Date Data Source [id number] 08/06/2020 06:18:00 PM EST [facility] ([facility]) Name Value Range Interpretation Code Description Data Aura rce(s) Supporting Document(s) Phosphate [Moles/volume] in Serum or Plasma 3.2 mg/dL 2.5-4.9 [facility] ([facility]) Magnesium [Moles/volume] in Serum or Plasma 2.0 mg/dL 1.8-2.4 [facility] ([facility]) ID Date Data Source [id number] 08/06/2020 06:18:00 PM EST [facility] ([facility]) Name Value Range Interpretation Code Description Data Aura rce(s) Supporting Document(s) Acetone/Ketone 33.08 mg/dL [facility] ([facility]) ID Date Data Source [id number] 08/06/2020 06:18:00 PM EST [facility] ([facility]) Name Value Range Interpretation Code Description Data Aura rce(s) Supporting Document(s) Lipoprotein lipase [Enzymatic activity/volume] in Serum or Plasm a 38 U/L 73-393 [facility] ([facility]) Osmolality of Serum or Plasma 311 MOSM/KG 280-301 [facility] ([facility]) ID Date Data Source [id number] 08/06/2020 06:18:00 PM EST [facility] ([facility]) Name Value Range Interpretation Code Description Data Aura rce(s) Supporting Document(s) Hemoglobin A1c 11.2 % [facility] ([facility]) <content>REFERENCE RANGES:</content><br/ ><content></content>
<content><=5.6% NORMAL</content>
<content>5.7-6.4% SUGGESTS IMPAIRED GLUCOSE METABOLISM/PREDIABETIC</content>
<content>>= 6.5% ABNORMAL</content>
<content></content> Estimated Average Glucose 275 mg/dL 60-110 [facility] ([facility]) ID Date Data Source [id number] 08/06/2020 06:18:00 PM EST [facility] ([facility]) Name Value Range Interpretation Code Description Data Aura rce(s) Supporting Document(s) Ammonia [Mass/volume] in Blood 44 uMOL/L [facility] ([facility]) ID Date Data Source [id number] 05/22/2020 09:38:00 AM EDT [facility] ([facility]) Name Value Range Interpretation Code Description Data Aura rce(s) Supporting Document(s) Microalbumin Urine 69.8 mg/L 1.3-20.0 [facility] ([facility]) Microalb/Creat Ratio 55.7 ug/mg 0.0-30.0 [facility] ( [facility]) Urine Creatinine 125.4 mg/dL 30.0-125.0 [facility] ([facility]) ID Date Data Source [id number] 05/22/2020 09:38:00 AM EDT [facility] ([facility]) Name Value Range Interpretation Code Description Data Aura rce(s) Supporting Document(s) Glucose [Mass/volume] in Serum or Plasma 131 mg/dL 74-99 [facility] ([facility]) 100-125 mg/dL PRE-DIABETES/FASTING >126 mg/dL DIABETES/FASTING Urea nitrogen [Mass/volume] in Serum or Plasma 25 mg/dL 7-18 [facility] ([facility]) Creatinine 1.0 mg/dL 0.6-1.3 [facility] Sodium [Moles/volume] in Serum or Plasma 141 meq/L 136-145 [facility] ([facility]) Potassium [Moles/volume] in Serum or Plasma 4.1 meq/L 3.5-5.1 [facility] ([facility]) Chloride [Moles/volume] in Serum or Plasma 105 meq/L 98-107 [facility] ([facility]) Carbon dioxide, total [Moles/volume] in Serum or Plasma 27 meq/L 21 -32 [facility] ([facility]) Calcium [Mass/volume] in Serum or Plasma 8.9 mg/dL 8.5-10.1 [facility] ([facility]) Glomerular filtration rate/1.73 sq M pre dicted among non-blacks [Volume Rate/Area] in Serum or Plasma by Creatinine-based formula (MDRD) 53 mL/min [facility] ([facility]) Glomerular filtration rate/1.73 sq M pre dicted among blacks [Volume Rate/Area] in Serum or Plasma by Creatinine-based formula (MDRD) Laboratory test result [facility] ([facility]) <content>CHRONIC KIDNEY DISEASE STAGING PER NKF</content>
<content></content>
<content>STAGE I & II GFR >= 60 NORMAL TO MILDLY DECREASED</content>
<content>STAGE III GFR 30-59 MODERATELY DECREASED</content>
<content>STAGE IV GFR 15-29 SEVERELY DECREASED</content>
<content>STAGE V GFR <15 VERY LITTLE GFR LEFT</content>
<content>ESRD GFR <15 ON FOLDING MACHINE OPERATOR</content>
<content></content> ID Date Data Source [id number] 05/22/2020 09:38:00 AM EDT [facility]) Name Value Range Interpretation Code Description Data Aura rce(s) Supporting Document(s) Hemoglobin A1c/Hemoglobin.total in Blood 12.0 % [facility] ([facility]) NOTE: RESULT VERIFIED. Lab Result Notes: Pre-Diabetes 5.7 - 6.4 % Diabetes = or > 6.5% Glucose mean value [Mass/volume] in Blood Estimated fr om glycated hemoglobin 298 mg/dL 60-110 [facility] ([facility] ) ID Date Data Source [id number] 05/22/2020 09:38:00 AM EDT [facility]) Name Value Range Interpretation Code Description Data Aura rce(s) Supporting Document(s) Erythrocytes [#/volume] in Blood by Automated count 3.83 x10*6/UL 4.2 0-6.30 [facility] ([facility]) Hemoglobin [Mass/volume] in Blood 10.9 g/dL 12.0-18.0 [facility] ([facility]) Leukocytes [#/volume] in Blood by Automated count 11.6 x10*3/UL 4.1-[facility] NOTE: RESULT VERIFIED. Hematocrit [Volume Fraction] of Blood by Automated count 32.6 % 3 7.0-51.0 [facility] ([facility]) MCV 85.2 fL 80.0-97.0 [facility] MCH 28.5 pg 26.0-32.0 [facility] Erythrocyte distribution width [Ratio] by Automated count 14.3 % 11.6-13.7 [facility] ([facility]) MCHC 33.4 g/dL 31.0-38.0 [facility] Platelets [#/volume] in Blood by Automated count 285 x10*3/UL 140-440 [facility] ([facility]) MPV 8.8 FL 7.8-11.0 [facility] Mid % 7.4 % 1.7-9.3 [facility] Lymph % 26.8 % 10.0-58.5 [facility] Neut % 65.8 % 37.0-92.0 [facility] Mid # 0.9 x10*3/UL 0.1-0.6 [facility] ([facility]) Lymph # 3.1 x10*3/UL 0.6-4.1 [facility] ([facility]) Neut # 7.6 x10*3/UL 2.0-7.8 [facility] ([facility]) Procedure Social History Code Duration Value Status Description Data Source(s ) Smoking 10/12/2020 10:52:59 AM EST Ex-smoker (finding) complet ed Ex-smoker (finding) [facility] (Inderjit Interiano MD [facility]) Smoking 05/09/2020 01:41:55 PM EDT Ex-smoker (finding) complet ed Ex-smoker (finding) STEPHANIE (Inderjit Interiano MD [facility]) Vital Signs ID Date Data Source UNK Name Value Range Interpretation Code Description Data Source(s) Body mass index (BMI) [Ratio] 25.4 kg/m2 25.4 k g/m2 [facility] ([facility]) Body weight 147.00 [lb_av] 147.00 [lb_av] [facility] ([facility]) Diastolic blood pressure 80 mm[Hg] 80 mm[Hg] [facility] Systolic blood pressure 144 mm[Hg] 144 mm[Hg] [facility] ([facility]) Heart rate 68 /min 68 /min [facility]) Body height 63.75 [in_i] 63.75 [in_i] [facility] ([facility]) 5'3.75" Systolic blood pressure 146 mm[Hg] 146 mm[Hg] [facility] ([facility]) Diastolic blood pressure 72 mm[Hg] 72 mm[Hg] [facility] ([facility]) Heart rate 65 /min 65 /min [facility] ([facility]) Body height 63.75 [in_i] 63.75 [in_i] [facility] ([facility]) 5'3.75" Body weight 147.00 [lb_av] 147.00 [lb_av] [facility] ([facility]) Oxygen saturation in Arterial blood by Pulse oximetry 96 % 96 % [facility] ([facility]) Body mass index (BMI) [Ratio] 25.4 kg/m2 25.4 k g/m2 [facility] ([facility]) Diastolic blood pressure 80 mm[Hg] 80 mm[Hg] [facility] ([facility]) Heart rate 68 /min 68 /min [facility] ([facility]) Systolic blood pressure 130 mm[Hg] 130 mm[Hg] [facility] ([facility]) Body height 63.75 [in_i] 63.75 [in_i] [facility] ([facility]) 5'3.75" Body weight 150.00 [lb_av] 150.00 [lb_av] [facility] ([facility]) Body mass index (BMI) [Ratio] 25.9 kg/m2 25.9 k g/m2 [facility] ([facility]) Systolic blood pressure 132 mm[Hg] 132 mm[Hg] [facility] Diastolic blood pressure 78 mm[Hg] 78 mm[Hg] [facility] ([facility]) Heart rate 70 /min 70 /min [facility]) Oxygen saturation in Arterial blood by Pulse oximetry 95 % 95 % [facility] ([facility]) Body mass index (BMI) [Ratio] 27.0 kg/m2 27.0 k g/m2 [facility] ([facility]) Body height 63.75 [in_i] 63.75 [in_i] [facility] ([facility]) 5'3.75" Body weight 156.00 [lb_av] 156.00 [lb_av] [facility] ([facility]) Systolic blood pressure 120 mm[Hg] 120 mm[Hg] [facility] Diastolic blood pressure 70 mm[Hg] 70 mm[Hg] [facility] ([facility]) Body height 63.75 [in_i] 63.75 [in_i] [facility] ([facility]) 5'3.75" Body weight 160.12 [lb_av] 160.12 [lb_av] [facility] ([facility]) Body mass index (BMI) [Ratio] 27.7 kg/m2 27.7 k g/m2 [facility] ([facility]) Heart rate 71 /min 71 /min [facility]) Body height 63.75 [in_i] 63.75 [in_i] [facility] ([facility]) 5'3.75" Oxygen saturation in Arterial blood by Pulse oximetry 94 % 94 % [facility] ([facility]) Air Body weight 156.00 [lb_av] 156.00 [lb_av] [facility] ([facility]) Body mass index (BMI) [Ratio] 27.0 kg/m2 27.0 k g/m2 [facility] ([facility]) Body mass index (BMI) [Ratio] 25.9 kg/m2 25.9 k g/m2 [facility] ([facility]) Systolic blood pressure 136 mm[Hg] 136 mm[Hg] [facility] Diastolic blood pressure 80 mm[Hg] 80 mm[Hg] [facility] ([facility]) Heart rate 78 /min 78 /min [facility] ([facility]) Body height 63.75 [in_i] 63.75 [in_i] [facility] ([facility]) 5'3.75" Body weight 150.00 [lb_av] 150.00 [lb_av] [facility] ([facility]) Heart rate 82 /min 82 /min [facility] ([facility]) Systolic blood pressure 150 mm[Hg] 150 mm[Hg] M [facility] ([facility]) Diastolic blood pressure 62 mm[Hg] 62 mm[Hg] [facility]) Body height 63.75 [in_i] 63.75 [in_i] [facility] ([facility]) 5'3.75" Body weight 155.00 [lb_av] 155.00 [lb_av] [facility] Body mass index (BMI) [Ratio] 26.8 kg/m2 26.8 k g/m2 [facility] ([facility]) ID Date Data Source [id number] 07/01/2021 02:21:47 PM EST [facility] Name Value Range Interpretation Code Description Data Source(s) WEIGHT RECORDED 136.80 pounds 136.80 pounds [facility] Height 60 Inches 060 Inches [facility]
== END 2021-07-06 03:35 | disposition home or self-care (01) ==
LOC: M ED 17:58
DX: S01.01XA Laceration without foreign body of scalp, initial encounter (principal); W05.0XXA Fall from non-moving wheelchair, initial encounter; Y92.129 Unspecified place in nursing home as the place of occurrence of the external cause; Y93.89 Activity, other specified; Y99.9 Unspecified external cause status; E11.9 Type 2 diabetes mellitus without complications; Z79.4 Long term (current) use of insulin; Z79.899 Other long term (current) drug therapy; Z88.8 Allergy status to other drugs, medicaments and biological substances; Z88.5 Allergy status to narcotic agent

== ENCOUNTER → 2021-11-07 | Outpatient (REF) | payer MEDICARE, MEDICAID ==
[~2021-11-07] MED LIST changes: -BISO10TA4 PO; +BISO1TAB19 PO; -FLUC100T PO; +FLUC100T3 PO
== END ==
LOC: M SFHCDERM 14:02
PROVIDERS: ATTEND Nurse Practitioner Family
DX: C44.319 Basal cell carcinoma of skin of other parts of face (principal)

== ENCOUNTER → 2022-07-08 | Outpatient (REF) | payer MEDICARE, MEDICAID ==
[2022-07-08 20:17] LABS: FERRITIN 29.3 NG/ML (7.3-270.7); PERCENT SATURATION 12.3 % (13.2-45.0)
[2022-07-08 20:37] LABS: BACTERIA, URINE SMALL AMOUNT; RBC, URINE 0-1 /hpf (0-3); SQUAMOUS EPITHELIAL CELL URINE MOD AMOUNT /hpf (SMALL AMT)
[2022-07-08 20:38] LABS: HYALINE CAST, URINE NONE SEEN /lpf (0-1)
== END ==
LOC: M LAB REF 16:50
PROVIDERS: ATTEND Internal Medicine
DX: D64.9 Anemia, unspecified (principal); N39.0 Urinary tract infection, site not specified

== ENCOUNTER → 2022-07-25 | Outpatient (CLI) | payer MEDICARE, MEDICAID | LOC: M RAD 12:55 | PROVIDERS: ATTEND Internal Medicine | DX: N93.9 Abnormal uterine and vaginal bleeding, unspecified (principal); R19.04 Left lower quadrant abdominal swelling, mass and lump ==

== ENCOUNTER → 2022-09-23 | Outpatient (REF) | payer MEDICARE, MEDICAID | LOC: M LAB REF 12:23 | PROVIDERS: ATTEND Internal Medicine | DX: N93.9 Abnormal uterine and vaginal bleeding, unspecified (principal); R19.04 Left lower quadrant abdominal swelling, mass and lump ==

== ENCOUNTER → 2023-01-20 | Outpatient (CLI) | payer MEDICARE, MEDICAID | LOC: M WUC 12:16 | PROVIDERS: ATTEND Internal Medicine | DX: N39.0 Urinary tract infection, site not specified (principal); R06.00 Dyspnea, unspecified; I51.7 Cardiomegaly; I70.0 Atherosclerosis of aorta; M47.9 Spondylosis, unspecified ==

== ENCOUNTER 2023-01-30 08:57 | Inpatient (IN) | payer MEDICARE, MEDICAID ==
[~2023-01-30] VITALS: Ht 152.4 cm; Wt 65.4 kg
[2023-01-30] MEDS ORDERED: methylPREDNISolone 125MG 2ML VIAL IV ONE (10:35)
[2023-01-30 10:56] LABS: VENOUS BASE EXCESS -1.2 (-2.0-2.0); VENOUS HCO3 23.1 MMOL/L (23.0-27.0); VENOUS O2 SATURATION 97.4 % (60.0-80.0); VENOUS PARTIAL PRESSURE CO2 36.7 mmHg (38.0-50.0); VENOUS PH 7.417 UNITS (7.330-7.430); VENOUS STANDARD HCO3 23.5 MMOL/L; VENOUS TOTAL CO2 24.2 MMOL/L (24.0-28.0)
[2023-01-30 11:14] LABS: BASO # 0.1 10^3/uL (0.0-0.2); BASO % 0.6 % (0.0-1.0); EOS # 0.2 10^3/uL (0.0-0.5); EOS % 2.9 % (0.0-3.0); HEMATOCRIT 25.2 % (36.0-47.0); HEMOGLOBIN 7.8 g/dl (12.0-15.5); LYMPH # 1.9 10^3/uL (1.5-5.0); LYMPH % 22.1 % (24.0-44.0); MEAN CORPUSCULAR HEMOGLOBIN 30.1 pg (27.0-33.0); MEAN CORPUSCULAR VOLUME 97.3 fl (80.0-96.0); MONO # 1.2 10^3/uL (0.0-0.8); MONO % 14.2 % (2.0-8.0); NEUTROPHILS % 59.8 % (36.0-66.0); PLATELET COUNT, AUTOMATED 226 10^3/uL (150-450); RED BLOOD COUNT 2.59 10^6/uL (4.00-5.40); WHITE BLOOD COUNT 8.4 10^3/uL (4.0-10.0)
[2023-01-30 11:24] LABS: CK-MB VALUE MASS 2.2 NG/ML (<3.6)
[2023-01-30 11:25] LABS: BILIRUBIN,DIRECT 0.1 MG/DL (<0.4); BILIRUBIN,TOTAL 0.3 MG/DL (0.3-1.2); CALCIUM LEVEL 8.1 MG/DL (8.3-10.6); CREATININE FOR GFR 0.96 MG/DL (0.55-1.30); GLOMERULAR FILTRATION RATE 58.9 (>32); MB/CK RELATIVE INDEX 1.74 (< OR =4); POTASSIUM SERUM 4.1 MMOL/L (3.5-5.1); TOTAL PROTEIN 7.5 G/DL (5.7-8.2)
[2023-01-30] MEDS ORDERED: DEXTROSE 50% 50ML SYRINGE IV STA (12:06)
[2023-01-30] MEDS ORDERED: FUROSEMIDE 20MG/2ML VIAL IV ONE (13:20)
[2023-01-30] MEDS ORDERED: IPRATROPIUM 0.5MG/ALBUTEROL 2.5MG INH SOL UD 3ML (DUONEB) NEB ONE (13:20)
[2023-01-30 13:34] LABS: PERCENT SATURATION 4.2 % (13.2-45.0)
[2023-01-30 13:36] LABS: FERRITIN 90.1 NG/ML (7.3-270.7); FOLATE 22.25 NG/ML (>5.4)
[2023-01-30] MEDS ORDERED: ISOVUE-370 76% 100ML VIAL As Ordered ONE (14:12)
[2023-01-30] MEDS ORDERED: DEXTROSE 50% 50ML SYRINGE IV PRN (14:30)
[2023-01-30] MEDS ORDERED: GLUCAGON INJ 1MG VIAL SC PRN (14:30)
[2023-01-30] MEDS ORDERED: GLUCOSE 4GM CHEW TABLET PO PRN (14:30)
[2023-01-30] MEDS ORDERED: ACET1TAB55 PO (15:02)
[2023-01-30] MEDS ORDERED: AMLO1TAB24 PO (15:02)
[2023-01-30] MEDS ORDERED: OMEP-173 PO (15:02)
[2023-01-30] MEDS ORDERED: VENTAER INH (15:02)
[2023-01-30] MEDS ORDERED: TUMS500C PO (15:02)
[2023-01-30] MEDS ORDERED: TEMO0.0517 TOP (15:02)
[2023-01-30] MEDS ORDERED: HUMA100I5 SC (15:02)
[2023-01-30] MEDS ORDERED: INSULADS SC (15:02)
[2023-01-30] MEDS ORDERED: BISO10TA14 PO (15:02)
[2023-01-30] MEDS ORDERED: OXYC1TAB23 PO ×2 (15:02)
[2023-01-30] MEDS ORDERED: NYST1POW9 TOP (15:02)
[2023-01-30] MEDS ORDERED: MIRA3350 PO (15:02)
[2023-01-30] MEDS ORDERED: SIME80CH5 PO (15:02)
[2023-01-30] MEDS ORDERED: HOME MED LIST COMPLETE! XX SCH (15:05)
[2023-01-30 15:29] LABS: ABG BASE EXCESS -0.5 (-2.0-2.0); ABG HCO3 24.6 MMOL/L (22.0-26.0); ABG O2 SATURATION 98.1 % (95.0-99.0); ABG PARTIAL PRESSURE CO2 42.3 mmHg (35.0-45.0); ABG PARTIAL PRESSURE O2 116.7 mmHg (75.0-100.0); ABG STANDARD HCO3 24.1 MMOL/L. (22.0-26.0); ABG TOTAL CO2 25.9 MMOL/L (23.0-31.0); ABG pH (ARTERIAL) 7.382 UNITS (7.350-7.450)
[2023-01-30 15:34] LABS: HEMATOCRIT 29.2 % (36.0-47.0); HEMOGLOBIN 8.8 g/dl (12.0-15.5)
[2023-01-30] MEDS ORDERED: ALBUTEROL 90 MCG/ACT 8GM HFA INHALER INH PRN (16:45)
[2023-01-30] MEDS ORDERED: SIMETHICONE 80MG CHEW TAB PO PRN (16:45)
[2023-01-30] MEDS ORDERED: PERCOCET 5MG/325MG TAB PO PRN (16:45)
[2023-01-30] MEDS ORDERED: IRON SUCROSE 200 MG in NS 100 ML IV ONE (18:00)
[2023-01-30] MEDS ORDERED: INSULIN LISPRO (NovoLOG) PER UNIT SC SCH (18:00)
[2023-01-30] MEDS ORDERED: INSULIN LISPRO (NovoLOG) PER UNIT SC ONE (18:50)
[2023-01-30] MEDS: ADVAIR HFA 115/21MCG INHALER INH SCH (19:47)
[2023-01-30] MEDS: IPRATROPIUM 0.5MG/ALBUTEROL 2.5MG INH SOL UD 3ML (DUONEB) NEB SCH (19:47)
[2023-01-30] MEDS ORDERED: LEVEMIR (INSULIN DETEMIR) 1 UNITS/0.01ML SC ONE (20:00)
[2023-01-30 20:54] VITALS: BP 145/59; TEMP 96.8; O2SAT 100
[2023-01-30] MEDS: FUROSEMIDE 40MG/4ML VIAL IV SCH (21:46)
[2023-01-30] MEDS: ACETAMINOPHEN TAB 650MG DOSE (2X325MG) PO SCH (21:47)
[2023-01-30] MEDS: PERCOCET 5MG/325MG TAB PO SCH (21:48)
[2023-01-30] MEDS: ENOXAPARIN 40MG/0.4ML SYRINGE (J1650 PER 10MG) SC SCH (21:48)
[2023-01-30] MEDS: bisoproloL fumarate 10 MG TAB PO SCH (21:50)
[2023-01-30 23:09] VITALS: BP 124/56; TEMP 97.1; O2SAT 93
[2023-01-31] MEDS: IPRATROPIUM 0.5MG/ALBUTEROL 2.5MG INH SOL UD 3ML (DUONEB) NEB SCH ×4 (02:49→19:24)
[2023-01-31 03:59] VITALS: BP 114/52; TEMP 96.9; O2SAT 94
[2023-01-31 05:35] LABS: HEMATOCRIT 24.4 % (36.0-47.0); HEMOGLOBIN 7.8 g/dl (12.0-15.5); MEAN CORPUSCULAR HEMOGLOBIN 30.2 pg (27.0-33.0); MEAN CORPUSCULAR VOLUME 94.6 fl (80.0-96.0); PLATELET COUNT, AUTOMATED 221 10^3/uL (150-450); RED BLOOD COUNT 2.58 10^6/uL (4.00-5.40); WHITE BLOOD COUNT 8.1 10^3/uL (4.0-10.0)
[2023-01-31] MEDS: FUROSEMIDE 40MG/4ML VIAL IV SCH (05:50)
[2023-01-31 05:51] LABS: CALCIUM LEVEL 8.3 MG/DL (8.3-10.6); CREATININE FOR GFR 0.95 MG/DL (0.55-1.30); GLOMERULAR FILTRATION RATE 59.7 (>32); MAGNESIUM LEVEL 1.7 MG/DL (1.8-2.4); PHOSPHORUS LEVEL 3.9 MG/DL (2.4-5.1); POTASSIUM SERUM 4.2 MMOL/L (3.5-5.1)
[2023-01-31] MEDS: MAG SULF 1GM/100ML (MAG RUN) 1 GM in IV 1 EA IV SCH (06:48)
[2023-01-31] MEDS ORDERED: INSULIN LISPRO (NovoLOG) PER UNIT SC SCH (07:30)
[2023-01-31] MEDS: INSULIN LISPRO (NovoLOG) PER UNIT SC SCH ×3 (07:30→17:22)
[2023-01-31] MEDS: ADVAIR HFA 115/21MCG INHALER INH SCH ×2 (07:33→19:24)
[2023-01-31] MEDS: PERCOCET 5MG/325MG TAB PO SCH ×2 (08:51→20:29)
[2023-01-31] MEDS: MIRALAX *UNIT DOSE* 17GM PACKET PO SCH (08:51)
[2023-01-31] MEDS: ACETAMINOPHEN TAB 650MG DOSE (2X325MG) PO SCH ×2 (08:52→20:29)
[2023-01-31] MEDS: OMEPRAZOLE 20MG CAP PO SCH (08:52)
[2023-01-31 16:53] VITALS: BP 124/58; TEMP 97.1; O2SAT 94
[2023-01-31] MEDS: bisoproloL fumarate 10 MG TAB PO SCH (20:28)
[2023-01-31] MEDS: LEVEMIR (INSULIN DETEMIR) 1 UNITS/0.01ML SC SCH (20:29)
[2023-01-31] MEDS: ENOXAPARIN 40MG/0.4ML SYRINGE (J1650 PER 10MG) SC SCH (20:30)
[2023-01-31 20:45] VITALS: BP 120/54; TEMP 96.6; O2SAT 94
[2023-01-31] MEDS ORDERED: LEVEMIR (INSULIN DETEMIR) 1 UNITS/0.01ML SC SCH (21:00)
[2023-01-31] MEDS: RAMELTEON 8 MG TAB (ROZEREM) PO PRN (22:39)
[2023-02-01 00:59] VITALS: BP 107/52; TEMP 97.2; O2SAT 94
[2023-02-01] MEDS: IPRATROPIUM 0.5MG/ALBUTEROL 2.5MG INH SOL UD 3ML (DUONEB) NEB SCH ×4 (01:26→20:01)
[2023-02-01 06:28] LABS: HEMATOCRIT 26.1 % (36.0-47.0); HEMOGLOBIN 8.2 g/dl (12.0-15.5); MEAN CORPUSCULAR HEMOGLOBIN 29.9 pg (27.0-33.0); MEAN CORPUSCULAR HGB CONC 31.4 g/dl (32.0-36.5); MEAN CORPUSCULAR VOLUME 95.3 fl (80.0-96.0); PLATELET COUNT, AUTOMATED 257 10^3/uL (150-450); RED BLOOD COUNT 2.74 10^6/uL (4.00-5.40); WHITE BLOOD COUNT 11.9 10^3/uL (4.0-10.0)
[2023-02-01] MEDS: ADVAIR HFA 115/21MCG INHALER INH SCH ×2 (06:51→20:02)
[2023-02-01 06:57] LABS: CALCIUM LEVEL 8.6 MG/DL (8.3-10.6); CREATININE FOR GFR 1.35 MG/DL (0.55-1.30); GLOMERULAR FILTRATION RATE 39.8 (>32); MAGNESIUM LEVEL 2.3 MG/DL (1.8-2.4); PHOSPHORUS LEVEL 3.7 MG/DL (2.4-5.1); POTASSIUM SERUM 4.2 MMOL/L (3.5-5.1)
[2023-02-01] MEDS: INSULIN LISPRO (NovoLOG) PER UNIT SC SCH ×3 (07:27→17:30)
[2023-02-01 07:41] VITALS: BP 171/70; TEMP 97; O2SAT 94
[2023-02-01] MEDS ORDERED: NS 1,000 ML IV SCH (08:25)
[2023-02-01] MEDS ORDERED: FUROSEMIDE 40 MG TAB PO SCH (09:00)
[2023-02-01] MEDS: PERCOCET 5MG/325MG TAB PO SCH ×2 (09:00→21:33)
[2023-02-01] MEDS: ACETAMINOPHEN TAB 650MG DOSE (2X325MG) PO SCH ×2 (09:00→21:33)
[2023-02-01] MEDS ORDERED: ISOVUE-370 76% 100ML VIAL As Ordered ONE (09:11)
[2023-02-01 09:14] VITALS: BP 130/61; TEMP 97.6; O2SAT 95
[2023-02-01] MEDS: OMEPRAZOLE 20MG CAP PO SCH (09:22)
[2023-02-01] MEDS: MIRALAX *UNIT DOSE* 17GM PACKET PO SCH (09:22)
[2023-02-01 11:36] LABS: C REACTIVE PROTEIN QUANTITATIV 3.3 MG/DL (<1.0)
[2023-02-01 12:48] VITALS: TEMP 98.1; O2SAT 90
[2023-02-01 18:00] VITALS: BP 115/39; TEMP 99.5; O2SAT 91
[2023-02-01 21:20] VITALS: BP 152/51; TEMP 98.1; O2SAT 90
[2023-02-01] MEDS: RAMELTEON 8 MG TAB (ROZEREM) PO PRN (21:33)
[2023-02-01] MEDS: bisoproloL fumarate 10 MG TAB PO SCH (21:34)
[2023-02-01] MEDS: LEVEMIR (INSULIN DETEMIR) 1 UNITS/0.01ML SC SCH (21:35)
[2023-02-01] MEDS: ENOXAPARIN 40MG/0.4ML SYRINGE (J1650 PER 10MG) SC SCH (21:35)
[2023-02-02] VITALS (7 sets, daily range): BP systolic 121–146; BP diastolic 50–76; TEMP 97.7–98.2; O2SAT 90–99
[2023-02-02] MEDS: IPRATROPIUM 0.5MG/ALBUTEROL 2.5MG INH SOL UD 3ML (DUONEB) NEB SCH ×4 (01:22→19:52)
[2023-02-02 06:51] LABS: HEMATOCRIT 26.3 % (36.0-47.0); MEAN CORPUSCULAR HEMOGLOBIN 29.5 pg (27.0-33.0); MEAN CORPUSCULAR HGB CONC 30.4 g/dl (32.0-36.5); PLATELET COUNT, AUTOMATED 267 10^3/uL (150-450); RED BLOOD COUNT 2.71 10^6/uL (4.00-5.40); WHITE BLOOD COUNT 9.3 10^3/uL (4.0-10.0)
[2023-02-02 07:24] LABS: C REACTIVE PROTEIN QUANTITATIV 3.1 MG/DL (<1.0)
[2023-02-02 07:25] LABS: CREATININE FOR GFR 1.21 MG/DL (0.55-1.30); GLOMERULAR FILTRATION RATE 45.1 (>32); POTASSIUM SERUM 4.2 MMOL/L (3.5-5.1)
[2023-02-02] MEDS: INSULIN LISPRO (NovoLOG) PER UNIT SC SCH ×3 (07:30→17:32)
[2023-02-02] MEDS: MIRALAX *UNIT DOSE* 17GM PACKET PO SCH (08:00)
[2023-02-02] MEDS: PERCOCET 5MG/325MG TAB PO SCH ×2 (08:00→20:53)
[2023-02-02] MEDS: OMEPRAZOLE 20MG CAP PO SCH (08:00)
[2023-02-02] MEDS: ACETAMINOPHEN TAB 650MG DOSE (2X325MG) PO SCH ×2 (08:01→20:54)
[2023-02-02] MEDS: ADVAIR HFA 115/21MCG INHALER INH SCH ×2 (09:01→19:52)
[2023-02-02] MEDS: LEVEMIR (INSULIN DETEMIR) 1 UNITS/0.01ML SC SCH (20:52)
[2023-02-02] MEDS: ENOXAPARIN 40MG/0.4ML SYRINGE (J1650 PER 10MG) SC SCH (20:53)
[2023-02-02] MEDS: bisoproloL fumarate 10 MG TAB PO SCH (20:55)
[2023-02-03] MEDS: IPRATROPIUM 0.5MG/ALBUTEROL 2.5MG INH SOL UD 3ML (DUONEB) NEB SCH ×2 (00:17→09:14)
[2023-02-03] MEDS: INSULIN LISPRO (NovoLOG) PER UNIT SC SCH (07:09)
[2023-02-03] MEDS ORDERED: HUMA100I5 SC ×2 (07:59→09:10)
[2023-02-03] MEDS ORDERED: RAME8TAB2 PO ×2 (07:59→09:10)
[2023-02-03] MEDS ORDERED: INSULADS SC ×2 (07:59→09:10)
[2023-02-03] MEDS: OMEPRAZOLE 20MG CAP PO SCH (08:03)
[2023-02-03] MEDS: ACETAMINOPHEN TAB 650MG DOSE (2X325MG) PO SCH (08:03)
[2023-02-03] MEDS: MIRALAX *UNIT DOSE* 17GM PACKET PO SCH (08:03)
[2023-02-03] MEDS: PERCOCET 5MG/325MG TAB PO SCH (08:03)
[2023-02-03] MEDS: ADVAIR HFA 115/21MCG INHALER INH SCH (09:14)
[2023-02-03 10:00] VITALS: BP 126/50; TEMP 96.6; O2SAT 94
== END 2023-02-03 11:48 | DRG 291 ==
LOC: M ED 08:57 → M ED INP 14:42 → M PCU 20:48 → M MSPAV 02-01 13:09
PROVIDERS: ADMIT Internal Medicine; ATTEND Internal Medicine
DX: I11.0 Hypertensive heart disease with heart failure (principal); J96.01 Acute respiratory failure with hypoxia; I50.33 Acute on chronic diastolic (congestive) heart failure; J45.901 Unspecified asthma with (acute) exacerbation; C56.9 Malignant neoplasm of unspecified ovary; J44.1 Chronic obstructive pulmonary disease with (acute) exacerbation; I27.20 Pulmonary hypertension, unspecified; E11.40 Type 2 diabetes mellitus with diabetic neuropathy, unspecified; E11.649 Type 2 diabetes mellitus with hypoglycemia without coma; D50.9 Iron deficiency anemia, unspecified; E78.5 Hyperlipidemia, unspecified; K21.9 Gastro-esophageal reflux disease without esophagitis; F03.90 Unspecified dementia, unspecified severity, without behavioral disturbance, psychotic disturbance, mood disturbance, and anxiety; Z66 Do not resuscitate; Z88.6 Allergy status to analgesic agent; Z88.5 Allergy status to narcotic agent; Z79.899 Other long term (current) drug therapy; Z79.4 Long term (current) use of insulin

== ENCOUNTER → 2023-07-21 | Outpatient (REF) | payer MEDICARE, MEDICAID ==
[~2023-07-21] MED LIST changes: +ACET1TAB55 PO; +AMLO1TAB24 PO; +BISO10TA14 PO; +HUMA100I5 SC; +INSULADS SC; +MIRA3350 PO; +NYST1POW9 TOP; +OMEP-173 PO; +OXYC1TAB23 PO; +RAME8TAB2 PO; +SIME80CH5 PO; +TEMO0.0517 TOP; +TUMS500C PO; +VENTAER INH
== END ==
LOC: M LAB REF 17:21
PROVIDERS: ATTEND Internal Medicine
DX: N39.0 Urinary tract infection, site not specified (principal)